=== PATIENT | male | born 1960 | race Caucasian/White ===

== ENCOUNTER 2016-12-17 14:58 | Inpatient (IN) ==
[2016-12-17] MEDS ORDERED: Ipratropium/Albuterol Neb 3 ML IH ONE (15:18)
[2016-12-17 15:37] LABS: Basophils # 0.1 K/mcL (0.0-0.2); Basophils % 0.7 %; Eosinophils # 0.1 K/mcL (0.0-0.6); Eosinophils % 1.1 %; Hematocrit 45.1 % (37.5-50.1); Hemoglobin 14.2 g/dL (12.9-16.9); Immature Granulocytes % 0.2 % (0-4); Lymphocytes # 1.8 K/mcL (0.6-4.6); Lymphocytes % 22.5 %; Mean Corpuscular HGB Conc 31.5 g/dL (31.6-35.5); Mean Corpuscular Hemoglobin 31.6 pg (28.0-33.3); Mean Corpuscular Volume 100.2 fL (83.0-100.0); Mean Platelet Volume 11.3 fL (9.4-12.4); Monocytes # 0.6 K/mcL (0.0-1.3); Monocytes % 7.7 %; Neutrophils # 5.6 K/mcL (1.6-8.9); Platelet Count 152 K/mcL (140-400); Red Cell Distribution Width 13.8 % (11.5-14.5); Segmented Neutrophils % 67.8 %
[2016-12-17 15:49] LABS: BUN/Creatinine Ratio 13 (6-26); Blood Urea Nitrogen 10 mg/dL (8-26); Calcium 9.5 mg/dL (8.6-10.8); Carbon Dioxide 27 mEq/L (19-29); Chloride 101 mEq/L (98-109); Glucose 146 mg/dL (70-99); Osmolality,Calculated 290 (280-300); Sodium 139 mEq/L (136-145); eGFR For African Americans > 60 (> 60); eGFR For Non-African Americans > 60 (> 60)
--- NOTE | 2016-12-17 15:53 | Emergency Department Note ---
Disposition Clinical Impression: Ascites, Syncope, Congestive heart failure (CHF), COPD exacerbation Disposition: Admitted As Inpatient Condition: Good Referrals: Tawanda Chi MD [Primary Care Provider] - Forms: ED Satisfaction Letter Time of Disposition: 17:30 SOB HPI - General Chief Complaint: ED Syncope Stated Complaint: hypotension, ascities Time Seen by Provider: 12/17/16 15:09 Source: patient, family Mode of arrival: ambulatory Limitations: no limitations Nursing Notes Reviewed: Yes Vital Signs Reviewed: Yes - History of Present Illness 56-year-old male with past medical history of COPD and rle-tinqcls-[id number] diabetes presents with 1 month of gradually worsening shortness of breath, low blood pressure, and multiple syncopal events. He states that he has been evaluated by his primary care physician for these and was taken off his blood pressure medicines without improvement in his blood pressure, shortness of breath, or syncope. He is last syncopal episode was 4 days ago and he was seen at [place] emergency department where he had IV fluids and labs performed. He was feeling partially better so he went home. He has also had a CT scan of his head as well as of his chest. The CT scan of his chest was concerning for ascites in the upper abdomen which is why his family doctor sent him in today. He states that before he passes out he feels lightheaded and sometimes he is able to sit down without actually passing out. He denies any productive cough, fever or chills, confusion, chest pain, orthopnea, vomiting, changes in urination or bowel movements. He does admit to mild bilateral pedal edema that has been worsening over the last week. The patient is only supposed to use oxygen at night, but has been using it 24 hours a day for the past few weeks. - Related Data Home Medications Medication Instructions Recorded Confirmed Fluticasone/Vilanterol [Breo 1 each IH DAILY 12/11/16 12/11/16 Ellipta 200-25 Mcg INH] Gabapentin [Neurontin] 600 mg PO TID 12/11/16 12/11/16 Gemfibrozil [Lopid] 600 mg PO BIDWM 12/11/16 12/11/16 GlipiZIDE [Glipizide] 10 mg PO DAILY 12/11/16 12/11/16 Indomethacin 50 mg PO TID 12/11/16 12/11/16 Metformin HCl [Glucophage] 1,000 mg PO BID 12/11/16 12/11/16 Omeprazole [PriLOSEC] 20 mg PO DAILY 12/11/16 12/11/16 Umeclidinium [place] [Incruse 62.5 mcg IH DAILY 12/11/16 12/11/16 Ellipta] Allergies Allergy/AdvReac Type Severity Reaction Status Date / Time No Known Allergies Allergy Verified 12/11/16 21:24 All systems ED: reviewed and negative except as stated. Past Medical History - Past Medical History Medical history: Reports: COPD, hypertension, other Psychiatric history: Reports: no psych history - Social History Smoking Status: Current some day smoker Smokeless Tobacco Status: No Alcohol use: Reports: rarely Drug use: Reports: none Physical Exam - Head Head exam: atraumatic, normocephalic, normal inspection - Eye Eye exam: Present: normal appearance, PERRL, EOMI - ENT ENT exam: normal exam, normal oropharynx, mucous membranes moist - Neck Neck exam: Present: normal inspection, full ROM, trachea midline - Chest Chest inspection: Present: normal inspection, symmetric chest wall rise - Respiratory Patient is in no acute respiratory distress, but does have diffuse moderate wheezing. He has good air movement. Cardiovascular Cardiovascular exam: Present: regular rate, normal rhythm, normal heart sounds - Abdominal Exam Abdomen is distended, but soft. There is diffuse right-sided tenderness that is greatest in the right upper quadrant. - Extremities Exam Mild bilateral pedal edema. There is no calf tenderness or erythema. - Back Exam Back exam: Present: normal inspection, full ROM. Absent: tenderness, CVA tenderness (R), CVA tenderness (L) - Neurological Exam Neurological exam: Present: alert, oriented X3, CN II-XII intact - Psychiatric Psychiatric exam: Present: normal affect, normal mood - Skin Skin exam: Present: warm, dry, intact, normal color - General Limitations: no limitations General appearance: alert Course - Reevaluation(s) Reevaluation #1: CT scan shows pulmonary edema as well as right pleural effusion. Also shows ascites with probable cirrhosis. BNP is elevated to 1100. Patient received Lasix IV here. He also received a DuoNeb. He is feeling partially better, not completely. He is still wheezing. We will give a dose of Solu-Medrol for his COPD. He will need to be admitted for his new ascites workup as well as shortness of breath requiring oxygen 24 hours a day. Accepted by Dr. Cervantes Time: 17:39 Vital Signs Temperature 95.4 F L 12/17/16 15:01 Pulse Rate 112 12/17/16 15:01 Respiratory Rate 18 12/17/16 15:01 Blood Pressure 140/94 12/17/16 15:01 O2 Sat by Pulse Oximetry 88 L 12/17/16 15:01 Temperature 97.4 F L 12/17/16 15:18 Pulse Rate 107 12/17/16 17:00 Respiratory Rate 16 12/17/16 17:00 Blood Pressure 137/99 12/17/16 17:00 O2 Sat by Pulse Oximetry 97 12/17/16 17:00 Oxygen Delivery Oxygen Delivery Room Air Shortness of Breath/Dyspnea - Lab Data Result diagrams: 12/17/16 15:29 12/17/16 15:29 Lab Results 12/17/16 12/17/16 12/17/16 Range/Units 15:29 15:29 15:29 WBC 8.2 (4.3-11.1) K/mcL RBC 4.50 (4.19-5.50) M/mcL Hgb 14.2 (12.9-16.9) g/dL Hct 45.1 (37.5-50.1) % MCV 100.2 H (83.0-100.0) fL MCH 31.6 (28.0-33.3) pg MCHC 31.5 L (31.6-35.5) g/dL RDW 13.8 (11.5-14.5) % Plt Count 152 (140-400) K/mcL MPV 11.3 (9.4-12.4) fL Immature Gran % 0.2 (0-4) % Seg Neutrophils % 67.8 % Lymphocytes % 22.5 % Monocytes % 7.7 % Eosinophils % 1.1 % Basophils % 0.7 % Neutrophils # 5.6 (1.6-8.9) K/mcL Lymphocytes # 1.8 (0.6-4.6) K/mcL Monocytes # 0.6 (0.0-1.3) K/mcL Eosinophils # 0.1 (0.0-0.6) K/mcL Basophils # 0.1 (0.0-0.2) K/mcL Sodium 139 (136-145) mEq/L Potassium 4.0 (3.5-4.5) mEq/L Chloride 101 (98-109) mEq/L Carbon Dioxide 27 (19-29) mEq/L BUN 10 (8-26) mg/dL Creatinine 0.77 (0.72-1.25) mg/dL Est GFR ( Amer) > 60 (> 60) Est GFR (Non-Af Amer) > 60 (> 60) BUN/Creatinine Ratio 13 (6-26) Glucose 146 H (70-99) mg/dL POC Glucose (58-89) Calculated Osmolality 290 (280-300) Lactic Acid (0.5-2.2) mmol/L Calcium 9.5 (8.6-10.8) mg/dL Troponin I 0.03 (0-0.03) ng/mL B-Natriuretic Peptide (0-100) pg/mL 12/17/16 12/17/16 12/17/16 Range/Units 15:29 15:38 15:54 WBC (4.3-11.1) K/mcL RBC (4.19-5.50) M/mcL Hgb (12.9-16.9) g/dL Hct (37.5-50.1) % MCV (83.0-100.0) fL MCH (28.0-33.3) pg MCHC (31.6-35.5) g/dL RDW (11.5-14.5) % Plt Count (140-400) K/mcL MPV (9.4-12.4) fL Immature Gran % (0-4) % Seg Neutrophils % % Lymphocytes % % Monocytes % % Eosinophils % % Basophils % % Neutrophils # (1.6-8.9) K/mcL Lymphocytes # (0.6-4.6) K/mcL Monocytes # (0.0-1.3) K/mcL Eosinophils # (0.0-0.6) K/mcL Basophils # (0.0-0.2) K/mcL Sodium (136-145) mEq/L Potassium (3.5-4.5) mEq/L Chloride (98-109) mEq/L Carbon Dioxide (19-29) mEq/L BUN (8-26) mg/dL Creatinine (0.72-1.25) mg/dL Est GFR ( Amer) (> 60) Est GFR (Non-Af Amer) (> 60) BUN/Creatinine Ratio (6-26) Glucose (70-99) mg/dL POC Glucose 149 H (58-89) Calculated Osmolality (280-300) Lactic Acid 1.0 (0.5-2.2) mmol/L Calcium (8.6-10.8) mg/dL Troponin I (0-0.03) ng/mL B-Natriuretic Peptide 1195 H (0-100) pg/mL - EKG Data EKG attestation: Yes I reviewed and interpreted this EKG. EKG results narrative: Sinus tachycardia at 109 with normal axis and intervals. No ST elevation or depression. No pathologic Q waves. No significant change compared with 2016. Attestation Statement - Attestation Attestation: For this encounter, I have reviewed the resident, IRRIGATION SUPERVISOR, or PA documentation, treatment plan, and medical decision making; and I have had face to face time with this patient. 56-year-old male presents with concerns of hypotension, syncope, distended abdomen. Patient has been evaluated in the emergency department and by his primary care provider for syncopal episodes as well as increasing shortness of breath with exertion. Patient states that this has been worse over the past 2- [address] weeks[address] a [address] chest as an outpatient by his primary care provider for his dyspnea on exertion which showed abdominal ascites. Patient last syncopized 5 days ago while ambulating out to his car. states that she helped him down to the ground and he did not hit his head at that time. We will evaluate with CT of his abdomen for mass. We will obtain labs for CBC, CMP and further evaluation. Patient will be admitted to the hospital for further care and evaluation.
[2016-12-17] MEDS ORDERED: 0.9 % Sodium Chloride 500 ML IV ONE (16:01)
[2016-12-17] MEDS ORDERED: Furosemide 40 MG/4 ML VIAL IVP ONE (17:20)
[2016-12-17 17:39] LABS: Alanine Aminotransferase 12 Units/L (0-55); Albumin 3.7 g/dL (3.5-5.0); Albumin/Globulin Ratio 1.1 (1.1-2.2); Alkaline Phosphatase 85 Units/L (38-126); Aspartate Amino Transferase 21 Units/L (5-34); Bilirubin,Direct 0.4 mg/dL (0.0-0.5); Bilirubin,Indirect 0.5 mg/dL (0.0-1.2); Bilirubin,Total 0.9 mg/dL (0.2-1.2); Globulin 3.5 g/dL (2.4-3.5); Total Protein 7.2 g/dL (6.0-8.3)
[2016-12-17] MEDS ORDERED: methylPREDNISolone 125 MG/2 ML VIAL IVP ONE (17:39)
[2016-12-17 18:00] LABS: INR 1.3; Prothrombin Time 14.6 Seconds (9.4-12.1)
[2016-12-17] MEDS ORDERED: *HR* OxyCODONE Immed Rel 5 MG TABLET PO ONE (19:03)
--- NOTE | 2016-12-17 22:21 | Internal Med History&Physical ---
Date of Encounter: 12/17/16 Time of Encounter: 22:18 Assessment and Plan (1) Interstitial lung disease Current visit: Yes Status: Acute Patient mentioned that he has some sort of interstitial lung disease. He does not recall the diagnosis. He follows with a mailroom supervisor as an outpatient with pulmonary function test and the CT scan of the chest every 6 month period. will get outside records. (2) COPD exacerbation Current visit: Yes Status: Acute Will start the patient on steroids and [id number] breathing treatments. Azithromycin (3) Congestive heart failure (CHF) Current visit: Yes Status: Acute Patient will be started only 640 mg i.e. daily. I would avoid aggressive diuresis because I suspect that his syncope is related to at least moderate pulmonary hypertension which likely have progressed now. This will worsen with diuresis and reducing patients preload Qualifiers: Qualified Code(s): I50.9 - Heart failure, unspecified (4) Syncope Current visit: Yes Status: Acute Due to orthostasis. I suspect that this may be related to pulmonary hypertension. Will asked cardiology service for their input. Continuous telemetry monitoring for arrhythmias. avoid hypotension Qualifiers: Qualified Code(s): R55 - Syncope and collapse (5) Ascites Current visit: Yes Status: Acute This is likely related to right-sided heart failure. There is concern for cirrhosis on imaging. Will check hepatitis markers. Would also check juliet 1 antitrypsin deficiency Qualifiers: Qualified Code(s): R18.8 - Other ascites (6) Diabetes mellitus type 2 in nonobese Current visit: Yes Status: Acute Sliding scale insulin Internal Medicine - H&P: HPI Chief complaint: sob History of present illness: Mr. Ruiz is a 56 year old male with a history of chronic lung disease following with a mailroom supervisor is an outpatient thinks it is some sort of interstitial lung disease, COPD, diabetes mellitus presents to the emergency room today with shortness of breath and syncope which has been going on for the past 2 month. With regards to shortness of breath, patient has progressive shortness of breath currently he is short of breath with conversation, he has bilateral lower extremity swelling, and abdominal swelling. He denies any fevers. He denies any chest pain. The 2nd complaint is recurrence" which has been going on for the past month. "Usually preceded by a prodrome of lightheadedness. Usually occurs when the patient is standing up. He passes out for a short period of time about a minute and is fully conscious on arousal. His has witnessed lots of these episodes and has not noticed any seizure activity or incontinence to urine. She has checked his blood pressure several times during these episodes and usually run low systolic and 80s. His blood pressure medications which included lisinopril 20 mg of hydrochlorothiazide 25 mg or discontinue the month ago because of concern of hypotension causing syncope. However he continues to have these episodes. Patient had an echocardiogram in 2014 which showed dilated and hyperkinetic right ventricle with pulmonary artery systolic pressure of 55. There is no prior known history of liver disease. No blood transfusion. No history of hepatitis. Past Med Surg Social Fam HX - Past Medical History Medical history: COPD, hypertension, other Psychiatric history: no psych history - Past Surgical History Surgical History: appendectomy - Social History Smoking Status: Current some day smoker Packs per day: / Smokeless Tobacco Status: No Alcohol use: rarely Drug use: none Internal Medicine - H&P: Meds Fluticasone/Vilanterol [Breo Ellipta 200-25 Mcg INH] 1 each IH DAILY 12/11/16 [ History] Gabapentin [Neurontin] 600 mg PO TID 12/11/16 [History] Gemfibrozil [Lopid] 600 mg PO BIDWM 12/11/16 [History] GlipiZIDE [Glipizide] 10 mg PO BID 12/11/16 [History] Indomethacin 50 mg PO TID PRN 12/11/16 [History] Metformin HCl [Glucophage] 1,000 mg PO BID 12/11/16 [History] Omeprazole [PriLOSEC] 20 mg PO DAILY 12/11/16 [History] Umeclidinium Mosheim [Incruse Ellipta] 62.5 mcg IH DAILY 12/11/16 [History] Albuterol Neb [Proventil Neb] 2.5 mg IH 3-4XD PRN 12/17/16 [History] Albuterol Sulfate [Albuterol Inhaler] 2 puff IH Q4H PRN 12/17/16 [History] HYDROcodone/Acet 7.5/325 mg [[place] 7.5-325 mg] 1 tab PO Q6H PRN 12/17/16 [ History] Montelukast [Singulair] 10 mg PO DAILY 12/17/16 [History] Allergies No Known Allergies Allergy (Verified 12/11/16 21:24) All Systems PM: A 10-system review of systems was performed and is negative for pertinent findings except as documented above in the HPI. Review of systems: 10 point ROS is negative except for HPI. - Constitutional Vitals: Temp Pulse Resp BP Pulse Ox 97.6 F 109 19 109/87 94 L 12/17/16 20:08 12/17/16 20:08 12/17/16 20:08 12/17/16 20:08 12/17/16 20:08 Exam: Gen.: patient is alert oriented times 3 not in distress. Alejandra: normal S1 S2 normal additional sounds or murmurs chest: bilateral basil crackles expiratory wheezing neck:positive hepatojugular reflux lower extremity: 1+ lower extremity swelling Internal Med - H&P Results - Labs CBC & Chem 7: 12/17/16 15:29 12/17/16 15:29
[2016-12-18] MEDS: Azithromycin 500 MG in D5% in Water 250 ML IVPB SCH (00:12)
[2016-12-18] MEDS: methylPREDNISolone 125 MG/2 ML VIAL IVP SCH ×4 (00:13→17:16)
[2016-12-18] MEDS: Levalbuterol Neb 1.25 MG/3 ML IH SCH ×7 (00:24→23:14)
[2016-12-18] MEDS: *HR* HYDROcodone/Acet 7.5/325 mg TABLET PO PRN ×3 (02:02→17:26)
[2016-12-18 06:34] LABS: Basophils % 0.2 %; Hematocrit 39.7 % (37.5-50.1); Immature Granulocytes % 0.6 % (0-4); Lymphocytes # 0.5 K/mcL (0.6-4.6); Lymphocytes % 9.1 %; Mean Corpuscular HGB Conc 32.7 g/dL (31.6-35.5); Mean Corpuscular Hemoglobin 31.9 pg (28.0-33.3); Mean Corpuscular Volume 97.3 fL (83.0-100.0); Mean Platelet Volume 11.5 fL (9.4-12.4); Monocytes % 0.8 %; Neutrophils # 4.6 K/mcL (1.6-8.9); Platelet Count 126 K/mcL (140-400); Red Blood Count 4.08 M/mcL (4.19-5.50); Red Cell Distribution Width 13.5 % (11.5-14.5); Segmented Neutrophils % 89.3 %
[2016-12-18 06:43] LABS: BUN/Creatinine Ratio 14 (6-26); Blood Urea Nitrogen 12 mg/dL (8-26); Calcium 8.8 mg/dL (8.6-10.8); Carbon Dioxide 29 mEq/L (19-29); Chloride 95 mEq/L (98-109); Creatine Kinase 53 Units/L (30-200); Glucose 296 mg/dL (70-99); Magnesium 0.9 mg/dL (1.6-2.6); Osmolality,Calculated 295 (280-300); Potassium 3.8 mEq/L (3.5-4.5); Sodium 137 mEq/L (136-145); eGFR For African Americans > 60 (> 60); eGFR For Non-African Americans > 60 (> 60)
--- NOTE | 2016-12-18 07:35 | Internal Med Progress Note ---
Date of Encounter: 12/18/16 Time of Encounter: 07:33 - Assessment and plan (1) Interstitial lung disease Current Visit: Yes Status: Acute Assessment and plan: Has advanced Lung disease. PFTs in past severe obstructive Lung disease. has pulmonlogist at [facility]. ( Dr Macias) prefer to follow up with same. (2) Syncope Current Visit: Yes Status: Acute Assessment and plan: Had episode of syncope and that is reason for his hospitalization. denies Syncope since admission. on telemetry and no abnormal rhythm recorded. Qualifiers: Syncope type: unspecified Qualified Code(s): R55 - Syncope and collapse (3) COPD exacerbation Current Visit: Yes Status: Acute Assessment and plan: will continue - Abx ( Azithromycin) - Steroids ( Solumedrol) - BDAs ( Zoponex) possible pulmonary consult if persistently worsened (4) Diabetes mellitus type 2 in nonobese Current Visit: Yes Status: Acute Assessment and plan: ACHS Low dose sliding scale medical Decision making : mild to moderate risk of worsening in spite on appropriate treatment. - Subjective Interval history: seen and examined. comfortably lying in bed. has occasional SOB. no chest pain. patient claims that he is feeling much better as compare to yesterday. - Constitutional Vitals: Temp Pulse Resp BP Pulse Ox 97.7 F 98 15 135/100 94 L 12/18/16 06:46 12/18/16 06:46 12/18/16 06:46 12/18/16 06:46 12/18/16 06:46 General appearance: Present: A&O X 3, pleasant, no acute distress, answers questions appropriately - Head Head exam: Present: atraumatic, normocephalic - Eye Eye exam: Present: PERRL, conjuntiva pink, sclera anicteric Pupils: Present: PERRL - Neck Neck exam general surgery: Present: supple, trachea midline. Absent: lymphadenopathy - Respiratory Respiratory exam: Present: CTAB, wheezes. Absent: accessory muscle use, rales, rhonchi Additional comments: bilateral wheeze present. polyphonic in nature. - Cardiovascular Cardiovascular exam: Present: RRR, +S1, +S2. Absent: diastolic murmur, gallop, rubs, systolic murmur - GI/Abdominal GI/Abdominal exam: Present: normal bowel sounds, soft, no peritoneal signs. Absent: distended, tenderness - Extremities Exam Extremities exam: Present: warm, radial pulses palpable and symetrical. Absent : calf tenderness, cyanotic, pedal edema - Neurological Exam Neurological exam: Present: CN II-XII intact, oriented X3, no focal deficits. Absent: pronater drift, facial droop, speech deficit - Skin Skin exam: Present: dry, intact Internal Medicine: Result - Labs CBC & Chem 7: 12/18/16 05:50 12/18/16 05:50 Labs: Short CBC 12/18/16 Range/Units 05:50 WBC 5.2 (4.3-11.1) K/mcL Hgb 13.0 (12.9-16.9) g/dL Hct 39.7 (37.5-50.1) % Plt Count 126 L (140-400) K/mcL Neutrophils # 4.6 (1.6-8.9) K/mcL BMP 12/18/16 05:50 Sodium 137 Potassium 3.8 Chloride 95 L Carbon Dioxide 29 BUN 12 Creatinine 0.86 Glucose 296 H Calcium 8.8 Cardiac Enzymes 12/17/16 12/18/16 Range/Units 22:22 05:50 Troponin I 0.04 H* 0.02 (0-0.03) ng/mL - ABG Interpretation ABG results: PT/INR, D-dimer PT 14.6 Seconds (9.4-12.1) H 12/17/16 15:29 Consult Discharge Plan - Plan Referrals: Tawanda Chi MD [Primary Care Provider] -
[2016-12-18] MEDS ORDERED: Magnesium Sulfate 2 GM in D5% in Water 100 ML IVPB ONE (07:54)
[2016-12-18] MEDS ORDERED: Furosemide 40 MG/4 ML VIAL IVP SCH (08:00)
[2016-12-18] MEDS: Insulin LISPRO 300 UNITS/3 ML VIAL SQ SCH ×4 (08:21→21:19)
[2016-12-18] MEDS: Furosemide 40 MG/4 ML VIAL IVP SCH (08:22)
[2016-12-19] MEDS: methylPREDNISolone 125 MG/2 ML VIAL IVP SCH ×4 (00:07→17:51)
[2016-12-19] MEDS: *HR* HYDROcodone/Acet 7.5/325 mg TABLET PO PRN ×4 (00:08→21:04)
[2016-12-19] MEDS: Azithromycin 500 MG in D5% in Water 250 ML IVPB SCH (00:08)
[2016-12-19] MEDS: Gabapentin 300 MG CAPSULE PO SCH ×3 (02:04→14:43)
[2016-12-19] MEDS: Levalbuterol Neb 1.25 MG/3 ML IH SCH ×4 (04:39→16:07)
[2016-12-19] MEDS ORDERED: Perflutren Lipid Microsphere 1.3 ML in 0.9 % Sodium Chloride 8.7 ML IVP ONE (07:45)
[2016-12-19] MEDS: Furosemide 40 MG/4 ML VIAL IVP SCH (07:57)
[2016-12-19] MEDS: Insulin LISPRO 300 UNITS/3 ML VIAL SQ SCH ×4 (07:57→21:04)
[2016-12-19] MEDS ORDERED: Perflutren Lipid Microsphere 2 ML VIAL ONE (08:00)
--- NOTE | 2016-12-19 08:43 | Internal Med Progress Note ---
Date of Encounter: 12/19/16 Time of Encounter: 08:40 - Assessment and plan (1) Interstitial lung disease Current Visit: Yes Status: Acute Assessment and plan: Has advanced Lung disease. PFTs in past severe obstructive Lung disease. has pulmonlogist at [facility]. ( Dr Macias) prefer to follow up with same. 12/19/2016. Patient feels little better as compared to yesterday. Patient still has a wheeze which is polyphonic in nature. Patient agree to see transcribing operators supervisor here in this hospital. Patient feels that it is difficult for him now to go all the way to [place] to see his transcribing operators supervisor. We will get an transcribing operators supervisor consult tomorrow. (2) Syncope Current Visit: Yes Status: Acute Assessment and plan: Had episode of syncope and that is reason for his hospitalization. denies Syncope since admission. on telemetry and no abnormal rhythm recorded. 12/19/2016. No syncopal episode in past 24 hours. Possibility of a vasovagal syncope is very high Qualifiers: Syncope type: unspecified Qualified Code(s): R55 - Syncope and collapse (3) COPD exacerbation Current Visit: Yes Status: Acute Assessment and plan: will continue - Abx ( Azithromycin) - Steroids ( Solumedrol) - BDAs ( Zoponex) possible pulmonary consult if persistently worsened 12/19/2016. This is more of worsening interstitial fibrosis. Patient needs further evaluation by pulmonary. (4) Diabetes mellitus type 2 in nonobese Current Visit: Yes Status: Acute Assessment and plan: ACHS Low dose sliding scale medical Decision making : mild to moderate risk of worsening in spite on appropriate treatment. - Subjective Interval history: seen and examined. comfortably lying in bed. has occasional SOB. no chest pain. patient claims that he is feeling much better as compare to yesterday. 12/19/2016 Seen and examined. Chart reviewed. At the time of my examination patient was undergoing echocardiogram. Patient feels little better as compared to yesterday. - Constitutional Vitals: Temp Pulse Resp BP Pulse Ox 97.6 F 110 15 139/99 95 12/19/16 06:46 12/19/16 06:46 12/19/16 06:46 12/19/16 06:46 12/19/16 08:06 General appearance: Present: A&O X 3, pleasant, no acute distress, answers questions appropriately - Head Head exam: Present: atraumatic, normocephalic - Eye Eye exam: Present: PERRL, conjuntiva pink, sclera anicteric Pupils: Present: PERRL - Neck Neck exam general surgery: Present: supple, trachea midline. Absent: lymphadenopathy - Respiratory Respiratory exam: Present: CTAB. Absent: accessory muscle use, rales, rhonchi, wheezes - Cardiovascular Cardiovascular exam: Present: RRR, +S1, +S2. Absent: diastolic murmur, gallop, rubs, systolic murmur - GI/Abdominal GI/Abdominal exam: Present: normal bowel sounds, soft, no peritoneal signs. Absent: distended, tenderness - Extremities Exam Extremities exam: Present: warm, radial pulses palpable and symetrical. Absent : calf tenderness, cyanotic, pedal edema - Neurological Exam Neurological exam: Present: CN II-XII intact, oriented X3, no focal deficits. Absent: pronater drift, facial droop, speech deficit - Skin Skin exam: Present: dry, intact Internal Medicine: Result - Labs CBC & Chem 7: 12/18/16 05:50 12/18/16 05:50 - ABG Interpretation ABG results: PT/INR, D-dimer PT 14.6 Seconds (9.4-12.1) H 12/17/16 15:29 Consult Discharge Plan - Plan Referrals: Tawanda Chi MD [Primary Care Provider] -
--- NOTE | 2016-12-19 12:25 | ECHO - Doppler Report ---
Echo with Saline and Imaging Enhancement Agent Name: Hai Ruiz Date of Study: 12/19/2016 Date: 1960 Ht: 66.0 in Medical Record#: [id number] Age: 56 Wt: 174.0 lb Gender: Male BSA: 1.89 Order #: [id number] Location: [facility] Room #: [id number] Reading Physician: Tosha Odom DO Certified Lactation Educator: Edwige Saxena RDCS Ordering Physician: Zach Saini MD Primary Physician: Tawanda Chi MD Indications: Evaluate left ventricular function, Evaluate right side function Impressions: Technically challenging study with suboptimal windows. Even with use of Definity, LV wall motion was not well evaluated. Overall, LV systolic function appears reduced, EF 40%. There is abnormal septal motion. Moderately dilated RV with moderate reduction in function. LV septal flattening consistent with RV pressure overload. Mild tricuspid regurgitation. Mild pulmonic regurgitation. Moderate pulmonary hypertension. Left Ventricular Wall Motion: Rest Echo Findings The apex, apical inferior, mid inferior, basal inferior, apical anterior, mid anterior, basal anterior, apical lateral, mid anterior lateral, basal anterior lateral, mid inferior lateral and basal inferior lateral john were hypokinetic. The apical septal, mid inferior septal, basal inferior septal, mid anterior septal and basal anterior septal john were dyskinetic. Findings: Study Quality * Technically sub-optimal due to COPD. ECG Findings * Sinus tachycardia. Left Atrium * Normal left atrial size. Mitral Valve * Normal mitral valve structure. * No mitral stenosis. * Trace mitral regurgitation. Aortic Valve * No aortic regurgitation. * Aortic valve not well visualized. * No aortic stenosis. Tricuspid Valve * Normal tricuspid valve structure. * Mild tricuspid regurgitation. * Estimated RA pressure is 8 mmHg. * Estimated RVSP is 57 mmHg. * Moderate pulmonary hypertension. Pulmonic Valve * Pulmonic valve is not well visualized. * No pulmonic stenosis. * Mild pulmonic regurgitation. Pulmonary Artery * Pulmonary artery not well visualized. Left Ventricle * Mild left ventricular diastolic dysfunction. * Definity echo contrast was used. * LVEF 40%. Right Ventricle * Moderately dilated RV with moderate reduction in function. Right Atrium * Moderately dilated right atrium. Interatrial Septum * Suboptimal saline study to detect PFO. * Interatrial septum not well evaluated. IVC * The IVC is not dilated. * < 50% respiratory change. Pericardium * There is no pericardial effusion present. Aorta * Normally sized aortic root. History Hypertension Diabetes History of Smoking Years 30 Packs 0.5 Family History of CAD 08-14-15 a Previous Echo was performed. Contrast: Agitated saline 20 ml. Definity 1.3 ml in 8.7 ml of saline 2 ml. Measurements: BP: 139/ 99 2D Normal Values IVSd: 1.00 cm 0.6 - 1.0 cm LVIDd: 5.30 cm 3.7 - 5.6 cm LVPWd: 1.10 cm 0.6 - 1.1 cm LVIDs: 4.20 cm 1.5 - 3.6 cm AO: 3.00 cm < 4.0 cm LA: 3.70 cm 2.0 - 4.0cm %FS: 20.80 cm >25 % LVOT Diam: 2.10 cm LA volume: 58 Mitral Valve Peak E:.61 m/sec Peak A:.87 m/sec E/A Ratio:0.7 Peak E' Lat Bashir:6.24 cm/s Peak E' Med Bashir:6.73 cm/s E/E' Lat Ratio:9.8 E/E' Med Ratio:9.1 Tricuspid Valve TV Regurg Peak Grad: 49.00mmHg TV Regurg Peak Bashir: 3.51m/sec Updated by Tosha Odom on 12/19/2016 12:18:45 PM electronically signed on 12/19/2016 12:21:10 PM with status of Final Wall Motion Salazar: 1=Normal, 2=Hypokinesis, 3=Akinesis, 4=Dyskinesis, 5=Aneurysmal, 6=Hyperkinetic, X=Not Visualized (Blank)=Missing
--- NOTE | 2016-12-19 13:22 | Electrocardiograph Report ---
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
[2016-12-20] MEDS: Gabapentin 300 MG CAPSULE PO SCH ×4 (00:20→20:53)
[2016-12-20] MEDS: Azithromycin 500 MG in D5% in Water 250 ML IVPB SCH ×2 (00:27→23:56)
[2016-12-20] MEDS: methylPREDNISolone 125 MG/2 ML VIAL IVP SCH ×5 (00:28→23:55)
[2016-12-20 06:20] LABS: Hematocrit 40.7 % (37.5-50.1); Hemoglobin 12.9 g/dL (12.9-16.9); Immature Granulocytes % 0.8 % (0-4); Lymphocytes # 0.4 K/mcL (0.6-4.6); Lymphocytes % 3.7 %; Mean Corpuscular HGB Conc 31.7 g/dL (31.6-35.5); Mean Corpuscular Hemoglobin 31.2 pg (28.0-33.3); Mean Corpuscular Volume 98.3 fL (83.0-100.0); Mean Platelet Volume 11.9 fL (9.4-12.4); Monocytes # 0.2 K/mcL (0.0-1.3); Monocytes % 2.1 %; Platelet Count 120 K/mcL (140-400); Red Blood Count 4.14 M/mcL (4.19-5.50); Segmented Neutrophils % 93.4 %
[2016-12-20 06:22] LABS: Neutrophils # 10.7 K/mcL (1.6-8.9)
[2016-12-20 06:40] LABS: Alanine Aminotransferase 14 Units/L (0-55); Albumin 3.4 g/dL (3.5-5.0); Albumin/Globulin Ratio 1.1 (1.1-2.2); Alkaline Phosphatase 59 Units/L (38-126); Aspartate Amino Transferase 20 Units/L (5-34); BUN/Creatinine Ratio 28 (6-26); Bilirubin,Total 0.7 mg/dL (0.2-1.2); Calcium 8.3 mg/dL (8.6-10.8); Carbon Dioxide 33 mEq/L (19-29); Chloride 90 mEq/L (98-109); Globulin 3.2 g/dL (2.4-3.5); Glucose 426 mg/dL (70-99); Osmolality,Calculated 304 (280-300); Potassium 3.6 mEq/L (3.5-4.5); Sodium 135 mEq/L (136-145); Total Protein 6.6 g/dL (6.0-8.3); eGFR For African Americans > 60 (> 60); eGFR For Non-African Americans > 60 (> 60)
[2016-12-20 06:41] LABS: Blood Urea Nitrogen 30 mg/dL (8-26)
[2016-12-20] MEDS: *HR* HYDROcodone/Acet 7.5/325 mg TABLET PO PRN ×3 (06:44→23:55)
[2016-12-20] MEDS ORDERED: Insulin LISPRO 300 UNITS/3 ML VIAL SQ SCH (08:09)
[2016-12-20] MEDS ORDERED: *HR* Dextrose 50 % in Water (Syg) 50 ML SYRINGE IVP PRN (08:19)
[2016-12-20] MEDS ORDERED: Dextrose Gel 15 GM PO PRN ×2 (08:19)
[2016-12-20] MEDS ORDERED: D5% in Water 1,000 ML IV PRN (08:19)
[2016-12-20] MEDS: Furosemide 40 MG/4 ML VIAL IVP SCH (08:46)
[2016-12-20] MEDS: Insulin LISPRO 300 UNITS/3 ML VIAL SQ SCH ×3 (08:55→16:45)
[2016-12-20 12:56] LABS: Hepatitis A Antibody IgM Nonreactive (Nonreactive); Hepatitis B Core IgM Nonreactive (Nonreactive); Hepatitis B Surface Antigen Nonreactive (Nonreactive); Hepatitis C Virus Antibody Nonreactive (Nonreactive)
--- NOTE | 2016-12-20 17:27 | Internal Med Progress Note ---
<Jovani Alvarez - Last Filed: 12/20/16 17:57> Date of Encounter: 12/20/16 Time of Encounter: 09:45 - Assessment and plan (1) COPD exacerbation Current Visit: Yes Status: Acute Assessment and plan: improving clinically. continue Azithromycin, Steroids ( begin to taper) and bronchodialators. Patient is also quite young. His younger brother has COPD as well. CT scan suggest cirrhosis. Should also be worked up for alpha one antitrypsin deficiency. (2) Interstitial lung disease Current Visit: Yes Status: Acute Assessment and plan: per patient report. He is unsure of previous treatment for ILD He was followed by pulmononologist in [place]. Will consult pulmonology as he wishes to have a specialist in the area. (3) Hypoxemia Current Visit: Yes Status: Acute Assessment and plan: multifactorial. AECOPD, possible ILD, CHF. O2 as needed continue to treat underlying conditions. (4) Diabetes mellitus type 2 in nonobese Current Visit: Yes Status: Acute Assessment and plan: above goal increased sliding scale to medium scale. wean steroids. (5) Leukocytosis Current Visit: Yes Status: Acute Assessment and plan: mild Likely secondary to steroids. Continue to trend. Qualifiers: Qualified Code(s): D72.829 - Elevated white blood cell count, unspecified (6) Syncope Current Visit: Yes Status: Acute Assessment and plan: etiology unclear. Possibly Vasovagal we will also ask cardiology for their input as well. Qualifiers: Syncope type: unspecified Qualified Code(s): R55 - Syncope and collapse (7) Congestive heart failure Current Visit: Yes Status: Acute Assessment and plan: New onset Systolic will add low dose beta humberto and ACEi as patient tolerates. continue diuresis. Strict I's and Os. Etiology unclear. Ischemic cardiomyopathy? Will consult cardiology for further recommendations on work up and managment. Qualifiers: Qualified Code(s): I50.9 - Heart failure, unspecified (8) Diabetes Current Visit: Yes Status: Acute Assessment and plan: above goal increase sliding scale to medium scale. will also wean steroids. Qualifiers: Qualified Code(s): E11.9 - Type 2 diabetes mellitus without complications (9) DVT prophylaxis Current Visit: Yes Status: Acute Assessment and plan: SQ heparin - Subjective Interval history: Today patient states that he is feeling better. he states that he has a history of COPD and ILD. 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 However he states he dose not know the cause of the ILD. Today he states that he is feeling better. He states that his swelling has decreased. He states his breathing has improved as well. He denies productive cough, or hemoptysis. He has no further complaints or concerns at this time. - Constitutional Vitals: Temp Pulse Resp BP Pulse Ox 97.6 F 98 15 141/98 96 12/20/16 16:00 12/20/16 16:00 12/20/16 16:00 12/20/16 16:00 12/20/16 16:00 General appearance: Present: A&O X 3, pleasant, no acute distress, answers questions appropriately - Head Head exam: Present: atraumatic, normal inspection, normocephalic - Eye Eye exam: Present: PERRL, conjuntiva pink, sclera anicteric Pupils: Present: PERRL - ENT ENT exam: Present: mucous membranes moist - Neck Neck exam general surgery: Present: supple, trachea midline. Absent: lymphadenopathy - Respiratory Respiratory exam: Present: rhonchi, wheezes. Absent: accessory muscle use, rales - Cardiovascular Cardiovascular exam: Present: RRR, +S1, +S2. Absent: diastolic murmur, gallop, rubs, systolic murmur - GI/Abdominal GI/Abdominal exam: Present: normal bowel sounds, soft, no peritoneal signs. Absent: distended, tenderness - Extremities Exam Extremities exam: Present: warm, radial pulses palpable and symetrical. Absent : calf tenderness, cyanotic, pedal edema - Skin Skin exam: Present: dry, intact Internal Medicine: Result - Labs CBC & Chem 7: 12/20/16 05:39 12/20/16 05:39 Labs: Short CBC 12/20/16 Range/Units 05:39 WBC 11.5 H D (4.3-11.1) K/mcL Hgb 12.9 (12.9-16.9) g/dL Hct 40.7 (37.5-50.1) % Plt Count 120 L (140-400) K/mcL Neutrophils # 10.7 H (1.6-8.9) K/mcL BMP 12/20/16 05:39 Sodium 135 L Potassium 3.6 Chloride 90 L Carbon Dioxide 33 H BUN 30 H D Creatinine 1.07 Glucose 426 H Calcium 8.3 L Liver Function 12/20/16 Range/Units 05:39 Total Bilirubin 0.7 (0.2-1.2) mg/dL AST 20 (5-34) Units/L ALT 14 (0-55) Units/L Alkaline Phosphatase 59 (38-126) Units/L Albumin 3.4 L (3.5-5.0) g/dL - ABG Interpretation ABG results: PT/INR, D-dimer PT 14.6 Seconds (9.4-12.1) H 12/17/16 15:29 - VTE Documentation of Mechanical Device: Intermittent pneumatic compression device Consult Discharge Plan - Plan Referrals: Tawanda Chi MD [Primary Care Provider] - 12/24/16 9:30 am <Zach Saini - Last Filed: 12/20/16 18:14> Date of Encounter: 12/20/16 - Assessment and plan (1) Interstitial lung disease Current Visit: Yes Status: Acute (2) Syncope Current Visit: Yes Status: Acute Qualifiers: Syncope type: unspecified Qualified Code(s): R55 - Syncope and collapse (3) COPD exacerbation Current Visit: Yes Status: Acute (4) Diabetes mellitus type 2 in nonobese Current Visit: Yes Status: Acute - Constitutional Vitals: Temp Pulse Resp BP Pulse Ox 97.6 F 98 15 141/98 96 12/20/16 16:00 12/20/16 16:00 12/20/16 16:00 12/20/16 16:00 12/20/16 16:00 Internal Medicine: Result - Labs CBC & Chem 7: 12/20/16 05:39 12/20/16 05:39 Labs: Short CBC 12/20/16 Range/Units 05:39 WBC 11.5 H D (4.3-11.1) K/mcL Hgb 12.9 (12.9-16.9) g/dL Hct 40.7 (37.5-50.1) % Plt Count 120 L (140-400) K/mcL Neutrophils # 10.7 H (1.6-8.9) K/mcL BMP 12/20/16 05:39 Sodium 135 L Potassium 3.6 Chloride 90 L Carbon Dioxide 33 H BUN 30 H D Creatinine 1.07 Glucose 426 H Calcium 8.3 L Liver Function 12/20/16 Range/Units 05:39 Total Bilirubin 0.7 (0.2-1.2) mg/dL AST 20 (5-34) Units/L ALT 14 (0-55) Units/L Alkaline Phosphatase 59 (38-126) Units/L Albumin 3.4 L (3.5-5.0) g/dL - ABG Interpretation ABG results: PT/INR, D-dimer PT 14.6 Seconds (9.4-12.1) H 12/17/16 15:29 - Attending Attestation I examined this patient and my medical decision-making was reviewed with the [employer] SALESPERSON/PA/Advanced Practice Nurse/Resident Physician. I agree with the documented findings, disposition and treatment plan as described except to the extent set forth below.
--- NOTE | 2016-12-20 17:29 | Pulmonology Consult Note ---
Date of Encounter: 12/20/16 Time of Encounter: 16:20 Assessment and Plan (1) COPD exacerbation Current Visit: Yes Status: Acute I have asked patient to get records for us and will manage him as outpatient. I agree with current treatment and added Symbicort to his current treatment. Consider changing IV steroid to oral as transition to discharge home with taper dose steroid. (2) Interstitial lung disease Current Visit: Yes Status: Chronic Reviewing his CT chest shows evidence of chronic interstitial lung disease, however pattern is not typical for IPF pattern. This can be found in patient with copd and other condition. Will need his records to see how much work up he had done in [place] to prevent repeating any unnecessary testing. (3) Tobacco abuse Current Visit: Yes Status: Chronic Advising patient to quit smoking tobacco completely. (4) Tobacco abuse counseling Current Visit: Yes Status: Chronic History of Present Illness Consult date: 12/20/16 Requesting physician: Zach Saini Reason for consult: COPD, other (ILD) Chief complaint: Dyspnea History of present illness: This is a pleasant 56-year-old male with chronic respiratory failure on oxygen at home at 2 LPM and he has been admitted for worsening of his dyspnea and COPD exacerbation. Patient has underlying interstitial lung disease according to him , but he is not sure what type of treatment he was getting over that. Patient on inhalers at home for his COPD. Patient sees a furniture maker in [place] and he would like to be established with [facility]. He has worsening of his shortness of breath, and productive cough with wheezing, but he denies any hemoptysis. Patient noticed his dyspnea is worse with exertion. Patient has noticed lower extremities swelling and abdominal swelling. He has no fever and denies any chest pain. Patient continue to smoke tobacco some days. Past Med Surg Social Fam HX - Past Medical History Medical history: COPD, hypertension, other Psychiatric history: no psych history - Past Surgical History Surgical History: appendectomy - Social History Smoking Status: Current some day smoker Packs per day: / Smokeless Tobacco Status: No Alcohol use: rarely Drug use: none Medications and Allergies Fluticasone/Vilanterol [Breo Ellipta 200-25 Mcg INH] 1 each IH DAILY 12/11/16 [ History] Gabapentin [Neurontin] 600 mg PO TID 12/11/16 [History] Gemfibrozil [Lopid] 600 mg PO BIDWM 12/11/16 [History] GlipiZIDE [Glipizide] 10 mg PO BID 12/11/16 [History] Indomethacin 50 mg PO TID PRN 12/11/16 [History] Metformin HCl [Glucophage] 1,000 mg PO BID 12/11/16 [History] Omeprazole [PriLOSEC] 20 mg PO DAILY 12/11/16 [History] Umeclidinium [place] [Incruse Ellipta] 62.5 mcg IH DAILY 12/11/16 [History] Albuterol Neb [Proventil Neb] 2.5 mg IH 3-4XD PRN 12/17/16 [History] Albuterol Sulfate [Albuterol Inhaler] 2 puff IH Q4H PRN 12/17/16 [History] HYDROcodone/Acet 7.5/325 mg [[place] 7.5-325 mg] 1 tab PO Q6H PRN 12/17/16 [ History] Montelukast [Singulair] 10 mg PO DAILY 12/17/16 [History] Allergies No Known Allergies Allergy (Verified 12/11/16 21:24) All Systems: A 10-system review of systems was performed and is negative for pertinent findings except as documented above in the HPI. Physical Examination Vital Signs: Vital Signs, Last 4 Hours Temp Pulse Resp BP Pulse Ox 12/20/16 16:00 97.6 F 98 15 141/98 96 12/20/16 14:34 94 L General appearance: appears uncomfortable Eyes: nonicteric ENT: oropharynx dry Mallampati (class): 2 Neck: supple Effort: mildly labored Auscultation: bilateral: diminished breath sounds, rhonchi Percussion: bilateral: not dull Cardiovascular: regular rate and rhythm Gastrointestinal: normoactive bowel sounds Extremities: edema normal mental status, non-focal exam anxious Results - Laboratory Findings CBC and BMP: 12/20/16 05:39 12/20/16 05:39 PT/INR, D-dimer PT 14.6 Seconds (9.4-12.1) H 12/17/16 15:29 Abnormal lab findings: Abnormal lab results WBC 11.5 K/mcL (4.3-11.1) H D 12/20/16 05:39 RBC 4.14 M/mcL (4.19-5.50) L 12/20/16 05:39 Plt Count 120 K/mcL (140-400) L 12/20/16 05:39 Neutrophils # 10.7 K/mcL (1.6-8.9) H 12/20/16 05:39 Lymphocytes # 0.4 K/mcL (0.6-4.6) L 12/20/16 05:39 PT 14.6 Seconds (9.4-12.1) H 12/17/16 15:29 Sodium 135 mEq/L (136-145) L 12/20/16 05:39 Chloride 90 mEq/L (98-109) L 12/20/16 05:39 Carbon Dioxide 33 mEq/L (19-29) H 12/20/16 05:39 BUN 30 mg/dL (8-26) H D 12/20/16 05:39 BUN/Creatinine Ratio 28 (6-26) H 12/20/16 05:39 Glucose 426 mg/dL (70-99) H 12/20/16 05:39 POC Glucose 347 (58-89) H 12/20/16 07:18 Calculated Osmolality 304 (280-300) H 12/20/16 05:39 Calcium 8.3 mg/dL (8.6-10.8) L 12/20/16 05:39 Magnesium 0.9 mg/dL (1.6-2.6) L 12/18/16 05:50 B-Natriuretic Peptide 1195 pg/mL (0-100) H 12/17/16 15:29 Albumin 3.4 g/dL (3.5-5.0) L 12/20/16 05:39 - Diagnostic Findings Chest x-ray: report reviewed, image reviewed CT scan - chest: report reviewed, image reviewed - Clinical Findings Intake & Output: Intake & Output 12/20/16 12/20/16 12/20/16 07:59 15:59 23:59 Intake Total 300 / 300 540 / 540 0 / 0 Output Total 750 / 750 1500 / 1500 300 / 300 Balance -450 / -450 -960 / -960 -300 / -300 Weight 80.6 kg Consult Discharge Plan - Plan Referrals: Tawanda Chi MD [Primary Care Provider] - 12/24/16 9:30 am
[2016-12-20 20:28] LABS: CK-MB (CK isoenzymes) 0 % (0-4); CK-MM (CK-isoenzymes) 100 % (96-100)
[2016-12-20 20:28] LABS: CK-MB (CK isoenzymes) 0 % (0-4); CK-MM (CK-isoenzymes) 100 % (96-100)
[2016-12-20] MEDS: Budesonide/Formoterol 160/4.5 MDI IH SCH (23:20)
[2016-12-21] MEDS: methylPREDNISolone 125 MG/2 ML VIAL IVP SCH ×3 (08:14→23:48)
[2016-12-21] MEDS: Gabapentin 300 MG CAPSULE PO SCH ×3 (08:14→20:48)
[2016-12-21] MEDS: Furosemide 40 MG/4 ML VIAL IVP SCH (08:14)
[2016-12-21] MEDS: Insulin LISPRO 300 UNITS/3 ML VIAL SQ SCH ×4 (08:15→20:54)
[2016-12-21] MEDS: *HR* HYDROcodone/Acet 7.5/325 mg TABLET PO PRN ×3 (08:38→23:52)
[2016-12-21 10:00] LABS: CK Total (Ck Isoenzymes) 64 U/L (20-200); CK-BB (CK isoenzymes) 0 % (0-0)
[2016-12-21 10:02] LABS: CK Total (Ck Isoenzymes) 54 U/L (20-200); CK-BB (CK isoenzymes) 0 % (0-0)
[2016-12-21] MEDS: Budesonide/Formoterol 160/4.5 MDI IH SCH ×2 (10:41→21:37)
--- NOTE | 2016-12-21 12:58 | Cardiology Consult Note ---
Date of Encounter: 12/21/16 Time of Encounter: 13:00 Assessment and Plan (1) Acute systolic CHF (congestive heart failure) Current Visit: Yes Status: Acute Acute systolic and right sided heart failure. TTE EF 40% moderately reduced systolic function, moderately dilated right ventricle with reduction in function. There is right ventricular septal flattening consistent with pressure overload. Mild pulmonic regurgitation, mild tricuspid regurgitation, and moderate pulmonary hypertension. BNP 1145. Fluid overload seen on exam. CT scan showed pulmonary edema. Continue IV diuretic. Increase to 40 mg BID. Monitor BMP. Strict I&O and daily weights. -1650 ml last 24 hours. Low-sodium diet. 1500 ml fluid restriction. CHF education reviewed with patient. Continue carvedilol and lisinopril. LHC recommended to assess coronary anatomy to r/o ischemic cardiomyoapthy. Pulmonology requesting RHC. I discussed LHC indication, risks, benefits, and alternatives and he agrees to proceed. Plan for LHC once pt is breathing better. Likely proceed tomorrow. (2) COPD exacerbation Current Visit: Yes Status: Acute Pulmonology following. (3) Diabetes Current Visit: Yes Status: Chronic Management per IM. 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 All questions were answered. Thank you for involving us in the care of your patient. Please call with any questions. History of Present Illness Consult date: 12/21/16 Requesting physician: Mundo Gonzalez Consult reason: Acute systolic CHF Chief complaint: SOB, weight gain, orthopnea, syncopal event. History of present illness: Mr. Ruiz is a 56 year old male with a history of COPD, interstitial lung disease on home O2, tobacco use, hypertension, hyperlipidemia, and type II diabetes, and previous heavy ETOH use. He presents with the c/o increasing SOB, 8 lb weight gain, BLE edema and abdominal distention for the past two months. He also c/o lightheadedness and syncopal events that usually occur with position change. He reports he had multiple syncopal episodes. Denies chest pain or palpitations. Denies history of CAD or previous LHC. Cardiology consulted for abnormal echocardiogram. EF found to be newly reduced at 40%. Past Med Surg Social Fam HX - Past Medical History Medical history: COPD, diabetes, hyperlipidemia, hypertension, other Psychiatric history: no psych history - Past Surgical History Surgical History: appendectomy - Social History Smoking Status: Current some day smoker Packs per day: 1/4 Smokeless Tobacco Status: No Alcohol use: occasionally (3-4 beers two days a week), heavy (In the past) Drug use: none Medications and Allergies Fluticasone/Vilanterol [Breo Ellipta 200-25 Mcg INH] 1 each IH DAILY 12/11/16 [ History] Gabapentin [Neurontin] 600 mg PO TID 12/11/16 [History] Gemfibrozil [Lopid] 600 mg PO BIDWM 12/11/16 [History] GlipiZIDE [Glipizide] 10 mg PO BID 12/11/16 [History] Indomethacin 50 mg PO TID PRN 12/11/16 [History] Metformin HCl [Glucophage] 1,000 mg PO BID 12/11/16 [History] Omeprazole [PriLOSEC] 20 mg PO DAILY 12/11/16 [History] Umeclidinium [place] [Incruse Ellipta] 62.5 mcg IH DAILY 12/11/16 [History] Albuterol Neb [Proventil Neb] 2.5 mg IH 3-4XD PRN 12/17/16 [History] Albuterol Sulfate [Albuterol Inhaler] 2 puff IH Q4H PRN 12/17/16 [History] HYDROcodone/Acet 7.5/325 mg [[place] 7.5-325 mg] 1 tab PO Q6H PRN 12/17/16 [ History] Montelukast [Singulair] 10 mg PO DAILY 12/17/16 [History] Allergies No Known Allergies Allergy (Verified 12/11/16 21:24) All Systems Review: A 10-system review of systems was performed and is negative for pertinent findings except as documented above in the HPI. Physical Examination Vital Signs, Last 4 Hours Temp Pulse Resp BP Pulse Ox 12/21/16 11:10 97.8 F 91 16 124/60 95 12/21/16 10:41 16 94 L General: Conversant, No Apparent Distress, Other (Ill appearing male, srikanth skin color) HEENT: Atraumatic, Normocephaly, Mucus Membranes Moist Neck: Normal carotid pulses, Other (JVD+) Cardiac: Reg Rate and Rhythm, Normal S1 and S2, No Murmur Lungs: Other (Lung sounds diminished throughout, poor air movement, respirations slightly labored. ) Neuro: Alert and responsive, No focal deficits noted Abdomen: Soft, Non-Tender, Other (Distended) Skin: No rashes noted on visualized skin Musculoskeletal: No Chest Wall Tenderness Extremities: No Clubbing, No Cyanosis, Normal Pulses, Other (3+ edema from mid thigh to feet bilaterally.) Results 12/20/16 05:39 12/20/16 05:39 Chest X-Ray 12/17/16 15:19 IMPRESSION: New right-sided pleural effusion. Stable cardiomegaly Findings again suggest diffuse interstitial fibrosis D/ / Mundo Salcedo MD / Mundo Salcedo MD Interpreting Provider: Mundo Salcedo MD Abdomen/Pelvis CT 12/17/16 15:20 IMPRESSION: Suspect interstitial edema both lung bases. A small right pleural effusion. Probable cirrhosis of the liver. Ascites. No acute intra-abdominal process. No obstructive uropathy. Appendix not seen. Equivocal urinary bladder wall thickening. D/ / Alex Rojas MD / Alex Rojas MD Interpreting Provider: Alex Rojas MD - Imaging and Cardiology Chest Xray: report reviewed (Right sided pleural effusion. findings support interstitial edema.) Echo: report reviewed - EKG Interpretation EKG results cardiology: personally reviewed (Sr with [facility]) Consult Discharge Plan - Plan Referrals: Tawanda Chi MD [Primary Care Provider] - 12/24/16 9:30 am
--- NOTE | 2016-12-21 15:09 | Internal Med Progress Note ---
<TawnyaMundo garcía - Last Filed: 12/21/16 15:06> Date of Encounter: 12/21/16 Time of Encounter: 15:06 - Assessment and plan (1) Acute systolic CHF (congestive heart failure) Current Visit: Yes Status: Acute Assessment and plan: Patient had significant drop in EF over the last year, patient had a normal EF approximately 1 year ago and his EF is currently 40%. Concern for ischemic cardiomyopathy. Cardiology's been consulted and plan for left heart cath tomorrow. Continue medical management this time with beta humberto and LES inhibitor. (2) Interstitial lung disease Current Visit: Yes Status: Acute Assessment and plan: Versus chronic changes related to COPD. Currently on steroids. Will wean over a long taper as an outpatient. Pulmonology saw the patient and will follow up as an outpatient. (3) Pulmonary hypertension Current Visit: Yes Status: Acute Assessment and plan: Patient has moderate pulmonary hypertension on echo. Would recommend right heart cath with measurement of physiologic variables and vasodilator response for complete evaluation of the patient's pulmonary hypertension. Plan to have this done at the same time as the patient's left heart cath tomorrow. (4) Hypoxemia Current Visit: Yes Status: Acute Assessment and plan: multifactorial, AECOPD, possible ILD, CHF. Continue oxygen and wean down the patient's home dose. (5) Diabetes Current Visit: Yes Status: Chronic Assessment and plan: Blood sugars elevated likely related to steroid use. Have increased her sliding scale to high dose. Given that the patient will be nothing by mouth at midnight for procedure tomorrow we will hold off on any basal insulin at this time. Qualifiers: Diabetes mellitus type: type 2 Diabetes mellitus complication status: with unspecified complications Diabetes mellitus custodial insulin use: without lobsterman use Qualified Code(s): E11.8 - Type 2 diabetes mellitus with unspecified complications (6) DVT prophylaxis Current Visit: Yes Status: Acute Assessment and plan: SQ heparin - Subjective Interval history: Patient seen and examined at bedside. Patient states that he continues to feel better. He reports decrease in swelling. He states his breathing has improved and he has no cough or hemoptysis at this time. - Constitutional Vitals: Temp Pulse Resp BP Pulse Ox 97.8 F 91 16 124/60 95 12/21/16 11:10 12/21/16 11:10 12/21/16 11:10 12/21/16 11:10 12/21/16 11:10 General appearance: Present: A&O X 3, pleasant, no acute distress, answers questions appropriately - Respiratory Respiratory exam: Present: decreased breath sounds, wheezes (Occasional scattered). Absent: rales - Cardiovascular Cardiovascular exam: Present: RRR. Absent: gallop, rubs, systolic murmur - GI/Abdominal GI/Abdominal exam: Present: normal bowel sounds, soft. Absent: distended, tenderness - Neurological Exam Neurological exam: Present: alert, CN II-XII intact, oriented X3, no focal deficits Internal Medicine: Result - Labs CBC & Chem 7: 12/20/16 05:39 12/20/16 05:39 Labs: Cardiac Enzymes 12/17/16 12/18/16 Range/Units 22:22 05:50 CK-MB (CK-2) 0 0 (0-4) % - ABG Interpretation ABG results: PT/INR, D-dimer PT 14.6 Seconds (9.4-12.1) H 12/17/16 15:29 - VTE Documentation of Mechanical Device: Intermittent pneumatic compression device Consult Discharge Plan - Plan Referrals: Tawanda Chi MD [Primary Care Provider] - 12/24/16 9:30 am <Janusz Ponce - Last Filed: 12/21/16 19:01> Date of Encounter: 12/21/16 - Assessment and plan (1) Acute on chronic respiratory failure with hypoxemia Current Visit: Yes Status: Acute (2) Acute systolic CHF (congestive heart failure) Current Visit: Yes Status: Acute (3) Tobacco abuse Current Visit: Yes Status: Chronic (4) Diabetes mellitus type 2 in nonobese Current Visit: Yes Status: Acute - Constitutional Vitals: Temp Pulse Resp BP Pulse Ox 98 F 100 20 118/85 95 12/21/16 15:22 12/21/16 15:22 12/21/16 15:22 12/21/16 15:22 12/21/16 15:22 Internal Medicine: Result - Labs CBC & Chem 7: 12/21/16 16:01 12/20/16 05:39 Labs: Short CBC 12/21/16 Range/Units 16:01 WBC 10.8 (4.3-11.1) K/mcL Hgb 14.1 (12.9-16.9) g/dL Hct 45.1 (37.5-50.1) % Plt Count 139 L (140-400) K/mcL Cardiac Enzymes 12/17/16 12/18/16 Range/Units 22:22 05:50 CK-MB (CK-2) 0 0 (0-4) % - ABG Interpretation ABG results: PT/INR, D-dimer PT 14.0 Seconds (9.4-12.1) H 12/21/16 16:01 - Attending Attestation I examined this patient and my medical decision-making was reviewed with the Resident Physician on 12/21/16. I agree with the documented findings, disposition and treatment plan as described except to the extent set forth below. Mr. Ruiz is currently admitted for acute exac CHF and hypoxemia. He remains moderate to high risk due to potential for worsening cardiac and respiratory symptoms. Mr. Ruiz is sitting on edge of bed. He remains dyspneic. He is concerned about cause of his symptoms. Exam Alert. Comfortable Heart reg No wheeze Echo with decreased EF I/P 1. Acute systolic heart failure 2. acute on chronic hypoxic resp failure 3. diabetes Further diagnoses and plan as above To have left and right heart cath tomorrow.
[2016-12-21] MEDS ORDERED: *HR* Heparin 5,000 UNIT/ML VIAL IVP PRN ×2 (15:43)
[2016-12-21] MEDS ORDERED: *HR* Heparin 5,000 UNIT/ML VIAL IVP ONE (15:43)
[2016-12-21] MEDS ORDERED: Heparin 25,000 UNIT/500 ML D5W 25,000 UNIT/500 ML MLS IVC SCH (15:45)
[2016-12-21 16:21] LABS: Hematocrit 45.1 % (37.5-50.1); Hemoglobin 14.1 g/dL (12.9-16.9); Immature Platelets 16.4 % (1.1-6.1); Mean Corpuscular HGB Conc 31.3 g/dL (31.6-35.5); Mean Corpuscular Hemoglobin 31.3 pg (28.0-33.3); Mean Corpuscular Volume 100.2 fL (83.0-100.0); Mean Platelet Volume 12.5 fL (9.4-12.4); Red Blood Count 4.5 M/mcL (4.19-5.50); Red Cell Distribution Width 13.7 % (11.5-14.5)
[2016-12-21 16:27] LABS: INR 1.3
[2016-12-21 16:30] LABS: Activated Partial Thrombo Time 25.3 Seconds (26.0-36.0)
[2016-12-21] MEDS ORDERED: Furosemide 40 MG/4 ML VIAL IVP SCH (21:00)
--- NOTE | 2016-12-21 22:43 | Pulmonology Progress Note ---
Date of Encounter: 12/21/16 Time of Encounter: 16:00 Assessment and Plan (1) COPD exacerbation Current Visit: Yes Status: Acute Continue current treatment and I feel clinically patient looks better. I talked to primary team, need his records to be faxed to our office from his previous pulmonary physician. (2) Interstitial lung disease Current Visit: Yes Status: Chronic Suspect this is all copd related (3) Tobacco abuse Current Visit: Yes Status: Chronic (4) Tobacco abuse counseling Current Visit: Yes Status: Chronic Subjective Principal diagnosis: Shortness of breath Interval history: Patient still feel his short of breath and no other major events Objective PUL Vital signs: Last Vital Signs Temp 98 F 12/21/16 15:22 Pulse 100 12/21/16 15:22 Resp 18 12/21/16 21:40 BP 118/85 12/21/16 15:22 Pulse Ox 94 L 12/21/16 21:40 General appearance: no acute distress Eyes: nonicteric ENT: oropharynx moist Neck: supple Effort: normal Auscultation: bilateral: rhonchi Percussion: bilateral: not dull Cardiovascular: regular rate and rhythm Gastrointestinal: normoactive bowel sounds normal mental status, non-focal exam affect normal Results - Laboratory Findings CBC and BMP: 12/21/16 16:01 12/20/16 05:39 PT/INR, D-dimer PT 14.0 Seconds (9.4-12.1) H 12/21/16 16:01 Abnormal lab findings: Abnormal lab results MCV 100.2 fL (83.0-100.0) H 12/21/16 16:01 MCHC 31.3 g/dL (31.6-35.5) L 12/21/16 16:01 Plt Count 139 K/mcL (140-400) L 12/21/16 16:01 MPV 12.5 fL (9.4-12.4) H 12/21/16 16:01 Neutrophils # 10.7 K/mcL (1.6-8.9) H 12/20/16 05:39 Lymphocytes # 0.4 K/mcL (0.6-4.6) L 12/20/16 05:39 Immature Plt Fraction 16.4 % (1.1-6.1) H 12/21/16 16:01 PT 14.0 Seconds (9.4-12.1) H 12/21/16 16:01 APTT 25.3 Seconds (26.0-36.0) L 12/21/16 16:01 Sodium 135 mEq/L (136-145) L 12/20/16 05:39 Chloride 90 mEq/L (98-109) L 12/20/16 05:39 Carbon Dioxide 33 mEq/L (19-29) H 12/20/16 05:39 BUN 30 mg/dL (8-26) H D 12/20/16 05:39 BUN/Creatinine Ratio 28 (6-26) H 12/20/16 05:39 Glucose 426 mg/dL (70-99) H 12/20/16 05:39 POC Glucose 346 (58-89) H 12/21/16 20:36 Calculated Osmolality 304 (280-300) H 12/20/16 05:39 Calcium 8.3 mg/dL (8.6-10.8) L 12/20/16 05:39 Magnesium 0.9 mg/dL (1.6-2.6) L 12/18/16 05:50 B-Natriuretic Peptide 1195 pg/mL (0-100) H 12/17/16 15:29 Albumin 3.4 g/dL (3.5-5.0) L 12/20/16 05:39 - Clinical Findings Intake & Output: Intake & Output 12/21/16 12/21/16 12/21/16 07:59 15:59 23:59 Intake Total 600 / 600 280 / 280 240 / 240 Output Total 200 / 200 600 / 600 500 / 500 Balance 400 / 400 -320 / -320 -260 / -260 Weight 79.7 kg - VTE Documentation of Mechanical Device: Venous foot pump, device Consult Discharge Plan - Plan Referrals: Tawanda Chi MD [Primary Care Provider] - 12/24/16 9:30 am
[2016-12-21] MEDS: Azithromycin 500 MG in D5% in Water 250 ML IVPB SCH (23:47)
[2016-12-22 06:10] LABS: Basophils % 0.1 %; Hematocrit 42.1 % (37.5-50.1); Hemoglobin 13.2 g/dL (12.9-16.9); Immature Granulocytes % 0.4 % (0-4); Lymphocytes # 0.4 K/mcL (0.6-4.6); Mean Corpuscular HGB Conc 31.4 g/dL (31.6-35.5); Mean Corpuscular Hemoglobin 30.6 pg (28.0-33.3); Mean Corpuscular Volume 97.7 fL (83.0-100.0); Mean Platelet Volume 12.4 fL (9.4-12.4); Monocytes # 0.2 K/mcL (0.0-1.3); Neutrophils # 9.9 K/mcL (1.6-8.9); Platelet Count 126 K/mcL (140-400); Red Blood Count 4.31 M/mcL (4.19-5.50); Red Cell Distribution Width 13.3 % (11.5-14.5); Segmented Neutrophils % 93.5 %
[2016-12-22 06:29] LABS: BUN/Creatinine Ratio 41 (6-26); Blood Urea Nitrogen 35 mg/dL (8-26); Calcium 7.8 mg/dL (8.6-10.8); Carbon Dioxide 33 mEq/L (19-29); Chloride 94 mEq/L (98-109); Glucose 311 mg/dL (70-99); Osmolality,Calculated 308 (280-300); Potassium 3.5 mEq/L (3.5-4.5); Sodium 139 mEq/L (136-145); eGFR For African Americans > 60 (> 60); eGFR For Non-African Americans > 60 (> 60)
[2016-12-22] MEDS: Budesonide/Formoterol 160/4.5 MDI IH SCH ×2 (07:42→20:28)
[2016-12-22] MEDS: Insulin LISPRO 300 UNITS/3 ML VIAL SQ SCH ×4 (09:52→22:42)
[2016-12-22] MEDS: methylPREDNISolone 125 MG/2 ML VIAL IVP SCH ×3 (09:54→22:41)
[2016-12-22] MEDS: Gabapentin 300 MG CAPSULE PO SCH ×3 (09:54→22:42)
[2016-12-22] MEDS: *HR* HYDROcodone/Acet 7.5/325 mg TABLET PO PRN ×2 (09:59→18:28)
[2016-12-22] MEDS: Furosemide 40 MG/4 ML VIAL IVP SCH ×2 (10:00→22:43)
--- NOTE | 2016-12-22 10:32 | Event Note ---
Date of Encounter: 12/22/16 Time of Encounter: 10:00 - Cardiology Event Note Pt denies new events overnight. Continues to have SOB with activity. Denies lightheadedness or syncope. Denies chest pain. SPO2 91-92% on 2L laying flat for over 15 minutes. Planning for LHC today. RHC was discussed with interventionalist. We will cancel RHC at this time. Vasodilator test not recommended with patients ongoing SOB. Can be re-considered in out-pt setting. Pulmonology was notified. I&O shows patient is 190ml positive for 24 hours despite increasing lasix. Increase lasix to 60 mg BID IV. CHF education reviewed. Low sodium diet and daily weights. Pt seen to have several minutes of atrial fibrillation with RVR last night, HR up to 140 bpm. Continue heparin GTT. CHADS VASc=3. Anticoagulation with coumadin or NOAC was discussed and patient agrees with anticoagulation. WIll discuss again after LHC.
[2016-12-22] MEDS ORDERED: 0.9 % Sodium Chloride 1,000 ML ONE ×2 (12:46→12:50)
[2016-12-22] MEDS ORDERED: Heparin 1,000 UNITS/500 mL NS 500 ML ONE (12:46)
[2016-12-22] MEDS ORDERED: *HR* Heparin 10,000 UNIT/10 ML VIAL ONE (12:46)
[2016-12-22] MEDS ORDERED: Nitroglycerin 1,000 MCG/10 ML VIAL IV ONE (12:46)
--- NOTE | 2016-12-22 12:47 | Pre-Sedation Evaluation ---
Pre-sedation evaluation - Pre-sedation checklist Date of procedure: 12/22/16 Procedure: [facility] Recent Vitals: Last Vital Signs Temp 98.4 F 12/22/16 07:00 Pulse 76 12/22/16 12:00 Resp 16 12/22/16 12:00 BP 106/72 12/22/16 12:00 Pulse Ox 93 L 12/22/16 12:00 H&P (including ROS) documented in medical record: Yes Previous reaction to sedatives/anesthetics: Yes; explain in comment Dietary Status: NPO after Midnight Dentition: No loose teeth or bridges Possible difficult airway: No ASA Classification *see protocol: CLASS III-Severe systemic disease Plan of Care: Pt appropriate candidate for procedure/moderate/conscious sedation , Risks/benefits of procedure/sedation discussed w/ patient/family, If not NPO; Risk of intake outweiged by necessity to perform procedure
[2016-12-22] MEDS ORDERED: *HR* FentaNYL (PF) 100 MCG/2 ML VIAL ONE (12:58)
[2016-12-22] MEDS ORDERED: *HR* Midazolam HCl 2 MG/2 ML VIAL ONE (12:58)
[2016-12-22] MEDS ORDERED: *HR* Bivalirudin 250 MG VIAL IVC ONE (13:39)
[2016-12-22] MEDS ORDERED: Aspirin 325 MG TABLET ONE (13:39)
[2016-12-22] MEDS ORDERED: Nitroglycerin 0.4 MG TAB.SUBL SL PRN (13:50)
[2016-12-22] MEDS ORDERED: 0.9 % Sodium Chloride 1,000 ML IVC SCH (14:00)
--- NOTE | 2016-12-22 15:32 | Invasive Diagnostic Lab ---
Name: Hai Ruiz Date of Study: 12/22/2016 Date: 1960 Ht: 168.0 cm /66.1 in Medical Record#: [id number] Age: 56 Wt: 79.7 kg / 175.71 lb Account/Order#: [id number] Gender: Male BSA: 1.9 Order #: [id number] Fluoro Dose: 676 mGy BMI: 28.24 Procedure Physician: Tal Brown MD Referring MD: Referring MD: Procedures Performed: LEFT HEART CATH Indications: Unstable Angina, New onset CHF Impressions: There is severe one vessel coronary artery disease. There is moderate LV Dysfunction EF 40% Patient had successful Drug-Eluting Stent placement in the proximal LAD. Recommendations: Optimal medical therapy of patient's disease. Aggressive risk factor modification. History/Risk Factors: Diabetes Diabetes Therapy: Insulin Hypertension Dyslipidemia Current/Recent Smoker Chronic Lung Disease Procedure Access obtained in the right Femoral artery by percutaneous puncture Patient had successful Drug-Eluting Stent placement in the proximal LAD. Complications: None, None Contrast: Isovue 190ml Closure Device: Perclose ProGlide Hemodynamics: Pressures Site Systolic/ A Wave Diastolic/ V Wave End Diastolic/ Mean HR AO 100 72 84 76 AO 97 71 83 85 LV 97 11 20 83 LV 91 39 38 144 AO 112 51 83 82 LV 92 30 34 80 AO 100 63 90 80 AO 71 30 51 82 LV Ventriculography Ejection Method: LV Gram Ejection Fraction: 40% Wall Motion: CORNELL Anterobasal Moderate Hypokinesis Anterolateral Moderate Hypokinesis Apical: Moderate Hypokinesis Inferoapical Moderate Hypokinesis Inferobasal Moderate Hypokinesis Coronary Dominance: right Lesion Findings/Interventions * Left Main Coronary Artery The LMCA is angiographically free of disease. * Left Anterior Descending There is a 32 mm long, 80% stenosis in the Proximal LAD. The lesion has a MARIO flow of 3. An intervention was performed on the Proximal LAD with a final stenosis of 0%. There were no lesion complications. The final MARIO flow was 3. * Circumflex There is a 30% stenosis in the 1st Marginal. The lesion has a MARIO flow of 3. * Right Coronary Artery The RCA is angiographically free of disease. The Right PDA is angiographically free of disease. Interventional Device(s) Vessel Segment Type Name Diameter (mm) Length (mm) Proximal LAD drug-eluting stent Synergy 3.5 32 Updated by RT Linda (R) on 12/22/2016 2:05:23 PM Tal Brown MD electronically signed on 12/22/2016 3:28:16 PM with status of Final
--- NOTE | 2016-12-22 16:47 | Internal Med Progress Note ---
<TawnyaMundo garcía - Last Filed: 12/22/16 16:45> Date of Encounter: 12/22/16 Time of Encounter: 16:46 - Assessment and plan (1) Coronary artery disease Current Visit: Yes Status: Acute Assessment and plan: Patient is status post left heart catheterization which revealed 80% stenosis in the proximal LAD. Patient had one drug-eluting stent placed. Patient is chest pain-free at this time. Continue medical management with aspirin, Plavix , statin, beta humberto Qualifiers: Coronary Disease-Associated Artery/Lesion type: [place] artery [place] vs. transplanted heart: [place] heart Associated angina: without angina Qualified Code(s): I25.10 - Atherosclerotic heart disease of [place] coronary artery without angina pectoris (2) Ischemic cardiomyopathy Current Visit: Yes Status: Acute Assessment and plan: Secondary to her disease as discussed above. (3) Acute systolic CHF (congestive heart failure) Current Visit: Yes Status: Acute Assessment and plan: Secondary to ischemic cardiomyopathy. Continue medical therapy with LES inhibitor, beta humberto, diuersis. (4) Interstitial lung disease Current Visit: Yes Status: Acute Assessment and plan: Versus chronic changes related to COPD. Currently on steroids. Will wean over a long taper as an outpatient. Pulmonology saw the patient and will follow up as an outpatient. (5) Pulmonary hypertension Current Visit: Yes Status: Acute Assessment and plan: Patient has moderate pulmonary hypertension on echo. Patient was unable to have a right heart cath at this time, patient will follow-up as an outpatient to further explore this possibility. (6) Hypoxemia Current Visit: Yes Status: Chronic Assessment and plan: Chronic. multifactorial, AECOPD, possible ILD, CHF. Continue oxygen and wean down the patient's home dose. (7) Diabetes Current Visit: Yes Status: Chronic Assessment and plan: Blood sugars elevated likely related to steroid use. Have increased his sliding scale to high dose. Will initiate Levemir 10 units qHS Qualifiers: Diabetes mellitus type: type 2 Diabetes mellitus complication status: with unspecified complications Diabetes mellitus buttermaker continuous churn insulin use: without buttermaker continuous churn use Qualified Code(s): E11.8 - Type 2 diabetes mellitus with unspecified complications (8) DVT prophylaxis Current Visit: Yes Status: Acute Assessment and plan: Heparin 5000 units subcutaneous twice a day. - Subjective Interval history: Patient seen and examined at bedside. Patient states that he continues to feel better. He denies chest pain, dyspnea. - Constitutional Vitals: Temp Pulse Resp BP Pulse Ox 97.5 F L 80 16 111/81 95 12/22/16 14:14 12/22/16 15:53 12/22/16 15:53 12/22/16 15:53 12/22/16 15:53 General appearance: Present: A&O X 3, pleasant, no acute distress, answers questions appropriately - Respiratory Respiratory exam: Present: decreased breath sounds, wheezes (occasional scattered). Absent: rales, rhonchi - Cardiovascular Cardiovascular exam: Present: RRR, +S1, +S2. Absent: gallop, rubs, systolic murmur - Extremities Exam Extremities exam: Present: pedal edema (1+). Absent: tenderness - Neurological Exam Neurological exam: Present: alert, CN II-XII intact, oriented X3, no focal deficits Internal Medicine: Result - Labs CBC & Chem 7: 12/22/16 05:59 12/22/16 05:59 Labs: Short CBC 12/22/16 Range/Units 05:59 WBC 10.6 (4.3-11.1) K/mcL Hgb 13.2 (12.9-16.9) g/dL Hct 42.1 (37.5-50.1) % Plt Count 126 L (140-400) K/mcL Neutrophils # 9.9 H (1.6-8.9) K/mcL BMP 12/22/16 05:59 Sodium 139 Potassium 3.5 Chloride 94 L Carbon Dioxide 33 H BUN 35 H Creatinine 0.85 Glucose 311 H Calcium 7.8 L - ABG Interpretation ABG results: PT/INR, D-dimer PT 14.0 Seconds (9.4-12.1) H 12/21/16 16:01 - VTE Documentation of Mechanical Device: Venous foot pump, device Consult Discharge Plan - Plan Referrals: Tawanda Chi MD [Primary Care Provider] - 12/24/16 9:30 am <Janusz Ponce - Last Filed: 12/22/16 19:17> - Assessment and plan (1) Acute on chronic respiratory failure with hypoxemia Current Visit: Yes Status: Acute (2) Acute systolic CHF (congestive heart failure) Current Visit: Yes Status: Acute (3) Tobacco abuse Current Visit: Yes Status: Chronic (4) Diabetes mellitus type 2 in nonobese Current Visit: Yes Status: Acute (5) Coronary artery disease Current Visit: Yes Status: Acute Qualifiers: Coronary Disease-Associated Artery/Lesion type: [place] artery [place] vs. transplanted heart: [place] heart Associated angina: without angina Qualified Code(s): I25.10 - Atherosclerotic heart disease of [place] coronary artery without angina pectoris - Constitutional Vitals: Temp Pulse Resp BP Pulse Ox 97.5 F L 80 16 111/81 95 12/22/16 14:14 12/22/16 15:53 12/22/16 15:53 12/22/16 15:53 12/22/16 15:53 Internal Medicine: Result - Labs CBC & Chem 7: 12/22/16 05:59 12/22/16 05:59 Labs: Short CBC 12/22/16 Range/Units 05:59 WBC 10.6 (4.3-11.1) K/mcL Hgb 13.2 (12.9-16.9) g/dL Hct 42.1 (37.5-50.1) % Plt Count 126 L (140-400) K/mcL Neutrophils # 9.9 H (1.6-8.9) K/mcL BMP 12/22/16 05:59 Sodium 139 Potassium 3.5 Chloride 94 L Carbon Dioxide 33 H BUN 35 H Creatinine 0.85 Glucose 311 H Calcium 7.8 L - ABG Interpretation ABG results: PT/INR, D-dimer PT 14.0 Seconds (9.4-12.1) H 12/21/16 16:01 - Attending Attestation I examined this patient and my medical decision-making was reviewed with the Resident Physician on 12/22/16. I agree with the documented findings, disposition and treatment plan as described except to the extent set forth below. Mr. Ruiz is currently admitted for acute systolic heart failure and hypoxemia. He is s/p cath and stent today. He remains moderate to high risk due to potential for worsening pulmonary and cardiac issues. Mr. Ruiz is awaiting cath when seen this AM. He is hungry and thirsty. No CP. Exam Alert. Comfortable Heart reg Lungs diminished Abd soft I/P 1. Acute systolic heart failure 2. CAD s/p stent. Further diagnoses and plan as above.
[2016-12-22] MEDS: *HR* Heparin 5,000 UNIT/ML VIAL SQ SCH (17:22)
[2016-12-22] MEDS: Azithromycin 500 MG in D5% in Water 250 ML IVPB SCH (22:41)
[2016-12-22] MEDS: Insulin DETEMIR 100 UNIT/ML X5UNITS SQ SCH (22:42)
[2016-12-23] MEDS: *HR* Heparin 5,000 UNIT/ML VIAL SQ SCH (06:52)
[2016-12-23] MEDS: *HR* HYDROcodone/Acet 7.5/325 mg TABLET PO PRN (06:52)
[2016-12-23] MEDS: Furosemide 40 MG/4 ML VIAL IVP SCH ×2 (07:42→22:36)
[2016-12-23] MEDS: Gabapentin 300 MG CAPSULE PO SCH ×3 (07:42→22:37)
[2016-12-23] MEDS: Aspirin 81 MG TAB.CHEW PO SCH (07:42)
[2016-12-23] MEDS: Insulin LISPRO 300 UNITS/3 ML VIAL SQ SCH ×4 (07:43→22:36)
[2016-12-23] MEDS: Budesonide/Formoterol 160/4.5 MDI IH SCH ×2 (07:57→19:59)
[2016-12-23] MEDS ORDERED: predniSONE 20 MG TABLET PO SCH (09:00)
--- NOTE | 2016-12-23 09:17 | Discharge Summary ---
<Mundo Gonzalez - Last Filed: 12/23/16 09:15> Date of Encounter: 12/23/16 Time of Encounter: 09:17 - Discharge Diagnosis (1) Coronary artery disease Priority: Primary Status: Acute Qualifiers: Coronary Disease-Associated Artery/Lesion type: [place] artery [place] vs. transplanted heart: [place] heart Associated angina: without angina Qualified Code(s): I25.10 - Atherosclerotic heart disease of [place] coronary artery without angina pectoris (2) Ischemic cardiomyopathy Priority: Primary Status: Acute (3) Acute systolic CHF (congestive heart failure) Priority: Primary Status: Acute (4) Interstitial lung disease Priority: Primary Status: Acute (5) Pulmonary hypertension Priority: Primary Status: Acute (6) Hypoxemia Priority: Primary Status: Chronic (7) DVT prophylaxis Priority: Secondary Status: Acute - Discharge Medications Prescriptions: Nitroglycerin 0.4 mg SL Q5MIN PRN #30 tab.subl PRN Reason: Chest Pain Aspirin 81 mg PO DAILY #30 tab.chew Atorvastatin [Lipitor] 20 mg PO HS #30 tablet Carvedilol [Coreg] 6.25 mg PO BIDWM #60 tablet Clopidogrel [Plavix] 75 mg PO DAILY #30 tablet Furosemide [Lasix] 40 mg PO DAILY #30 tablet Lisinopril [Zestril] 2.5 mg PO BID #60 tablet Potassium Chloride 10 meq PO DAILY #30 tab.er.prt Home Medications: Fluticasone/Vilanterol [Breo Ellipta 200-25 Mcg INH] 1 each IH DAILY 12/11/16 [ History] Gabapentin [Neurontin] 600 mg PO TID 12/11/16 [History] Gemfibrozil [Lopid] 600 mg PO BIDWM 12/11/16 [History] GlipiZIDE [Glipizide] 10 mg PO BID 12/11/16 [History] Indomethacin 50 mg PO TID PRN 12/11/16 [History] Metformin HCl [Glucophage] 1,000 mg PO BID 12/11/16 [History] Omeprazole [PriLOSEC] 20 mg PO DAILY 12/11/16 [History] Umeclidinium [place] [Incruse Ellipta] 62.5 mcg IH DAILY 12/11/16 [History] Albuterol Neb [Proventil Neb] 2.5 mg IH 3-4XD PRN 12/17/16 [History] Albuterol Sulfate [Albuterol Inhaler] 2 puff IH Q4H PRN 12/17/16 [History] HYDROcodone/Acet 7.5/325 mg [Golden 7.5-325 mg] 1 tab PO Q6H PRN 12/17/16 [ History] Montelukast [Singulair] 10 mg PO DAILY 12/17/16 [History] Aspirin 81 mg PO DAILY #30 tab.chew 12/23/16 [Rx] Atorvastatin [Lipitor] 20 mg PO HS #30 tablet 12/23/16 [Rx] Carvedilol [Coreg] 6.25 mg PO BIDWM #60 tablet 12/23/16 [Rx] Clopidogrel [Plavix] 75 mg PO DAILY #30 tablet 12/23/16 [Rx] Furosemide [Lasix] 40 mg PO DAILY #30 tablet 12/23/16 [Rx] Lisinopril [Zestril] 2.5 mg PO BID #60 tablet 12/23/16 [Rx] Nitroglycerin 0.4 mg SL Q5MIN PRN #30 tab.subl 12/23/16 [Rx] Potassium Chloride 10 meq PO DAILY #30 tab.er.prt 12/23/16 [Rx] Allergies/Adverse Reactions: Allergies No Known Allergies Allergy (Verified 12/11/16 21:24) Procedures/tests Complete & Pending: Procedures Performed prior 72 hours Category Date Time Status CL Cardiac Catheterization [CL] Routine Ski Tow Operator 12/21/16 12:59 Completed CL Cardiac Catheterization [CL] Routine Ski Tow Operator 12/21/16 15:48 Ordered Date of admission: 12/17/16 22:02 Primary care physician: Tawanda Chi MD Consults: 12/20/16 10:58 Consult to Pulmonology [CONS] Routine Consulting Provider: [facility] [place] Reason for Consult: AECOPD. history of ILD. Patient requesting loca pulmonoogist Call Completed: Yes 12/20/16 17:51 Consult to Cardiology [CONS] Routine Comment: Consulting Provider: [facility] [place] Reason for Consult: New onset CHF. EF of 40% last EF in 2015 was 60%. Possible Ischemic cardiomyopathy? Call Completed: No 12/22/16 13:50 Consult to Cardiac Rehabilitation-Phase1 [CONS] Routine Comment: Reason for Consult: post op cath Call Completed: Yes 12/22/16 13:51 Consult to Cardiac Rehabilitation-Phase1 [CONS] Routine Comment: Reason for Consult: post op cath Call Completed: Yes Discharging clinician: Mundo Gonzalez Anticipated date of discharge: 12/23/16 - Patient Status Disposition: Home, Self-Care Condition: Good Functional capacity at discharge: independent ambulation Overall status at discharge: patient is progressing back to baseline - Discharge Instructions Instructions: Heart Failure (DC), Left Heart Catheterization (DC), Acute Respiratory Distress Syndrome (DC), Syncope (DC), Diabetes Mellitus Type 2 in Adults (DC), Chronic Obstructive Pulmonary Disease (DC), Pneumonia (DC) Follow Up With: [facility] [Provider Group] (1-2 weeks) Tano Valencia MD [Partnered Physician] - 01/06/17 2:30 pm (1-2 weeks) Tawanda Chi MD [Primary Care Provider] - 12/29/16 2:30 pm Additional Instructions: Please restart her home medications as directed. Please fill your prescriptions and start her home medications including aspirin , Plavix, atorvastatin, carvedilol, lisinopril, Lasix, potassium. Please use nitroglycerin under your tongue as needed for chest pain. As wear oxygen at all times. Please follow up with pulmonology and cardiology as scheduled. Please follow-up with your primary care physician in one to 2 weeks. Please return for any new or worsening symptoms. - Diet and Activity Activity: increase activity as tolerated, wear oxygen at all times Diet: low salt diet Interval History: Patient seen and examined at bedside. Patient has no complaints at this time. Denies chest pain, shortness of breath, cough. Hospital course: Mr. Ruiz is a 56 year old male with history of interstitial lung disease presented with shortness of breath and syncope. Patient was evaluated pulmonary hypertension found abnormal retention on echocardiogram. He was consulted and will manage the patient as outpatient. Echo revealed a decreased EF and the patient underwent cardiac catheterization which revealed a lesion in the proximal LAD which he received a drug-eluting stent. At the time of discharge the patient was back at his baseline and had no complaints of chest pain or shortness of breath or syncope. Patient will be discharged home in stable condition. - Time Spent with Patient Total time spent providing and/or coordinating discharge services: - Constitutional Vitals: Temp Pulse Resp BP Pulse Ox 97.4 F L 77 18 116/88 93 L 12/23/16 07:00 12/23/16 07:00 12/23/16 07:57 12/23/16 07:00 12/23/16 07:57 General appearance: Present: A&O X 3, pleasant, no acute distress, answers questions appropriately - Respiratory Respiratory exam: Present: decreased breath sounds. Absent: rales, rhonchi, wheezes - Cardiovascular Cardiovascular exam: Present: RRR. Absent: gallop, rubs, systolic murmur - GI/Abdominal GI/Abdominal exam: Present: normal bowel sounds, soft. Absent: distended, tenderness - Extremities Exam Extremities exam: Present: pedal edema (1+) - Neurological Exam Neurological exam: Present: alert, oriented X3, no focal deficits - VTE Documentation of Mechanical Device: Venous foot pump, device <Janusz Ponce - Last Filed: 12/23/16 19:22> - Discharge Diagnosis (1) Acute on chronic respiratory failure with hypoxemia Priority: Primary Status: Acute (2) Acute systolic CHF (congestive heart failure) Status: Acute (3) Tobacco abuse Status: Chronic (4) Diabetes mellitus type 2 in nonobese Status: Acute (5) Coronary artery disease Status: Acute Qualifiers: Coronary Disease-Associated Artery/Lesion type: [place] artery [place] vs. transplanted heart: [place] heart Associated angina: without angina Qualified Code(s): I25.10 - Atherosclerotic heart disease of [place] coronary artery without angina pectoris Procedures/tests Complete & Pending: Procedures Performed prior 72 hours Category Date Time Status CL Cardiac Catheterization [CL] Routine Ski Tow Operator 12/21/16 12:59 Completed CL Cardiac Catheterization [CL] Routine Ski Tow Operator 12/21/16 15:48 Ordered Date of admission: 12/17/16 22:02 Primary care physician: Tawanda Chi MD Consults: 12/20/16 10:58 Consult to Pulmonology [CONS] Routine Consulting Provider: [facility] Reason for Consult: AECOPD. history of ILD. Patient requesting loca pulmonoogist Call Completed: Yes 12/20/16 17:51 Consult to Cardiology [CONS] Routine Comment: Consulting Provider: [facility] [place] Reason for Consult: New onset CHF. EF of 40% last EF in 2014 was 60%. Possible Ischemic cardiomyopathy? Call Completed: No 12/22/16 13:50 Consult to Cardiac Rehabilitation-Phase1 [CONS] Routine Comment: Reason for Consult: post op cath Call Completed: Yes 12/22/16 13:51 Consult to Cardiac Rehabilitation-Phase1 [CONS] Routine Comment: Reason for Consult: post op cath Call Completed: Yes Hospital course: Mr. Ruiz is a 56 year old male - Time Spent with Patient Total time spent providing and/or coordinating discharge services: 38min - Constitutional Vitals: Temp Pulse Resp BP Pulse Ox 97.6 F 89 18 133/86 93 L 12/23/16 15:33 12/23/16 15:33 12/23/16 15:33 12/23/16 15:33 12/23/16 15:33 - Attending Attestation I examined this patient and my medical decision-making was reviewed with the Resident Physician on 12/23/16. I agree with the documented findings, disposition and treatment plan as described except to the extent set forth below. Mr. Ruiz feels OK. Breathing is OK today. No pain. No fever or chills. Exam Alert. Comfortable Heart irreg Lungs with some rales Plan D/C today Follow up with PCP and cardiology.
[2016-12-23 09:52] LABS: Basophils % 0.1 %; Hematocrit 42.9 % (37.5-50.1); Hemoglobin 13.8 g/dL (12.9-16.9); Immature Granulocytes % 0.4 % (0-4); Lymphocytes # 0.6 K/mcL (0.6-4.6); Lymphocytes % 3.6 %; Mean Corpuscular HGB Conc 32.2 g/dL (31.6-35.5); Mean Corpuscular Hemoglobin 31.9 pg (28.0-33.3); Mean Corpuscular Volume 99.3 fL (83.0-100.0); Mean Platelet Volume 12.4 fL (9.4-12.4); Monocytes # 0.8 K/mcL (0.0-1.3); Monocytes % 5.1 %; Neutrophils # 14.2 K/mcL (1.6-8.9); Platelet Count 120 K/mcL (140-400); Red Blood Count 4.32 M/mcL (4.19-5.50); Red Cell Distribution Width 13.3 % (11.5-14.5); Segmented Neutrophils % 90.8 %
[2016-12-23 10:11] LABS: BUN/Creatinine Ratio 39 (6-26); Blood Urea Nitrogen 35 mg/dL (8-26); Calcium 7.7 mg/dL (8.6-10.8); Carbon Dioxide 34 mEq/L (19-29); Chloride 96 mEq/L (98-109); Glucose 227 mg/dL (70-99); Magnesium 1.2 mg/dL (1.6-2.6); Osmolality,Calculated 307 (280-300); Potassium 3.2 mEq/L (3.5-4.5); Sodium 141 mEq/L (136-145); eGFR For African Americans > 60 (> 60); eGFR For Non-African Americans > 60 (> 60)
[2016-12-23] MEDS ORDERED: Magnesium Sulfate 2 GM in D5% in Water 100 ML IVPB ONE (10:50)
--- NOTE | 2016-12-23 10:55 | Cardiology Progress Note ---
Date of Encounter: 12/23/16 Time of Encounter: 10:52 Assessment and Plan (1) Acute systolic CHF (congestive heart failure) Current Visit: Yes Status: Acute Acute systolic and right sided heart failure. Ischemic cardiomyoapthy, s/p PCI to the pLAD. TTE EF 40% moderately reduced systolic function, moderately dilated right ventricle with reduction in function. There is right ventricular septal flattening consistent with pressure overload. Mild pulmonic regurgitation, mild tricuspid regurgitation, and moderate pulmonary hypertension. BNP 1145. Continues to have fluid overload on exam but improved. CT scan showed pulmonary edema. SOB multi-factoral in setting of CHF, pulmonary hypertension, and lung disease. Lasix increased to 60 mg IV BID yesterday and output improved. Recommend continuing IV lasix. Monitor BMP. Kidney function remains normal. Replace potassium and magnesium. Strict I&O and daily weights. -1875 ml last 24 hours. Low-sodium diet. 1500 ml fluid restriction. CHF education reviewed with patient. Continue carvedilol and lisinopril. Change to maintenance dose of lasix at discharge Close out-pt f/u for CHF. (2) COPD exacerbation Current Visit: Yes Status: Acute Primary team and pulmonology following. (3) Diabetes Current Visit: Yes Status: Chronic Management per IM. Qualifiers: Diabetes mellitus type: type 2 Diabetes mellitus complication status: with unspecified complications Diabetes mellitus intermediate insulin use: without termite control technician use Qualified Code(s): E11.8 - Type 2 diabetes mellitus with unspecified complications (4) Atrial fibrillation Current Visit: Yes Status: Acute Pt seen to have paroxysmal atrial flutter and atrial fibrillation during stay. No recurrent afib over last 12 hours. Carvedilol increased. CHADS VASc= 4. I discussed coumadin therapy vs NOAC and patient is agreeable to anticoagulation. Discussed with Dr. Odom and we will start xarelto. Rx printed. Qualifiers: Atrial fibrillation type: paroxysmal Qualified Code(s): I48.0 - Paroxysmal atrial fibrillation Discussion w patient/family: The assessment and plan as outlined above was discussed with the patient and/or family members who expressed understanding and agreement. All questions were answered. Thank you for involving us in the care of your patient. Please call with any questions. Subjective Principal diagnosis: Shortness of breath Interval history: Pt reports no significant change in symptoms. No events overnight. Objective Vital Signs, Last 4 Hours Temp Pulse Resp BP Pulse Ox 12/23/16 07:57 18 93 L 12/23/16 07:00 97.4 F L 77 18 116/88 94 L General: Conversant HEENT: Atraumatic, Normocephaly, Mucus Membranes Moist Neck: No JVD, Normal carotid pulses Cardiac: Reg Rate and Rhythm, Normal S1 and S2, No Murmur Lungs: Other (respirations diminished, spo2 89-92% on 2l, respirations slightly labored. ) Neuro: Alert and responsive, No focal deficits noted Abdomen: Soft, Non-Tender Skin: No rashes noted on visualized skin Musculoskeletal: No Chest Wall Tenderness Extremities: No Clubbing, No Cyanosis, Normal Pulses, Other (2+ edema above his knees. ) Results 12/23/16 09:35 12/23/16 09:35 Lab Results 12/22/16 12/23/16 12/23/16 11:48 09:35 09:35 WBC 15.6 H Hgb 13.8 Hct 42.9 Plt Count 120 L APTT 68.7 H Sodium 141 Potassium 3.2 L Chloride 96 L Carbon Dioxide 34 H BUN 35 H Creatinine 0.90 Glucose 227 H Calcium 7.7 L Magnesium 1.2 L - EKG Interpretation EKG results cardiology: other (Avg HR was 80 bpm. No recurrent afib seen. 3 small runs of SVT seen.) - VTE Documentation of Mechanical Device: Venous foot pump, device Consult Discharge Plan - Plan Instructions: Heart Failure (DC), Left Heart Catheterization (DC), Acute Respiratory Distress Syndrome (DC), Syncope (DC), Diabetes Mellitus Type 2 in Adults (DC), Chronic Obstructive Pulmonary Disease (DC), Pneumonia (DC) Additional Instructions: Please restart her home medications as directed. Please fill your prescriptions and start her home medications including aspirin , Plavix, atorvastatin, carvedilol, lisinopril, Lasix, potassium. Please use nitroglycerin under your tongue as needed for chest pain. As wear oxygen at all times. Please follow up with pulmonology and cardiology as scheduled. Please follow-up with your primary care physician in one to 2 weeks. Please return for any new or worsening symptoms. Referrals: [facility] [Provider Group] (1-2 weeks) Tano Valencia MD [Partnered Physician] - 01/06/17 2:30 pm (1-2 weeks) Tawanda Chi MD [Primary Care Provider] - 12/29/16 2:30 pm Prescriptions: Nitroglycerin 0.4 mg SL Q5MIN PRN #30 tab.subl PRN Reason: Chest Pain Aspirin 81 mg PO DAILY #30 tab.chew Atorvastatin [Lipitor] 20 mg PO HS #30 tablet Carvedilol [Coreg] 6.25 mg PO BIDWM #60 tablet Clopidogrel [Plavix] 75 mg PO DAILY #30 tablet Furosemide [Lasix] 40 mg PO DAILY #30 tablet Lisinopril [Zestril] 2.5 mg PO BID #60 tablet Potassium Chloride 10 meq PO DAILY #30 tab.er.prt
[2016-12-23] MEDS: *HR* Rivaroxaban 10 MG TABLET PO SCH (17:57)
[2016-12-23] MEDS: Insulin DETEMIR 100 UNIT/ML X5UNITS SQ SCH (22:37)
[2016-12-24 05:16] LABS: Basophils % 0.1 %; Eosinophils % 0.1 %; Hemoglobin 12.9 g/dL (12.9-16.9); Immature Granulocytes % 0.8 % (0-4); Lymphocytes # 2.3 K/mcL (0.6-4.6); Lymphocytes % 13.7 %; Mean Corpuscular HGB Conc 31.5 g/dL (31.6-35.5); Mean Corpuscular Volume 98.6 fL (83.0-100.0); Mean Platelet Volume 12.7 fL (9.4-12.4); Monocytes # 1.6 K/mcL (0.0-1.3); Monocytes % 9.5 %; Neutrophils # 12.7 K/mcL (1.6-8.9); Platelet Count 121 K/mcL (140-400); Red Blood Count 4.16 M/mcL (4.19-5.50); Red Cell Distribution Width 13.2 % (11.5-14.5); Segmented Neutrophils % 75.8 %
[2016-12-24 05:48] LABS: BUN/Creatinine Ratio 60 (6-26); Calcium 7.5 mg/dL (8.6-10.8); Carbon Dioxide 37 mEq/L (19-29); Chloride 97 mEq/L (98-109); Glucose 139 mg/dL (70-99); Magnesium 1.6 mg/dL (1.6-2.6); Osmolality,Calculated 312 (280-300); Potassium 3.6 mEq/L (3.5-4.5); Sodium 143 mEq/L (136-145); eGFR For African Americans > 60 (> 60); eGFR For Non-African Americans > 60 (> 60)
[2016-12-24 05:49] LABS: Blood Urea Nitrogen 50 mg/dL (8-26)
[2016-12-24] MEDS: Budesonide/Formoterol 160/4.5 MDI IH SCH ×2 (07:48→22:26)
[2016-12-24] MEDS: Levalbuterol Neb 1.25 MG/3 ML IH PRN (07:54)
--- NOTE | 2016-12-24 09:07 | Internal Med Progress Note ---
<TawnyaMundo garcía - Last Filed: 12/24/16 08:56> Date of Encounter: 12/24/16 Time of Encounter: 08:56 - Assessment and plan (1) Coronary artery disease Current Visit: Yes Status: Acute Assessment and plan: Patient is status post left heart catheterization which revealed 80% stenosis in the proximal LAD. Patient had one drug-eluting stent placed. Patient is chest pain-free at this time. Continue medical management with aspirin, Plavix , statin, beta humberto Qualifiers: Coronary Disease-Associated Artery/Lesion type: [place] artery [place] vs. transplanted heart: [place] heart Associated angina: without angina Qualified Code(s): I25.10 - Atherosclerotic heart disease of [place] coronary artery without angina pectoris (2) Ischemic cardiomyopathy Current Visit: Yes Status: Acute Assessment and plan: Secondary to heart disease as discussed above. (3) Acute systolic CHF (congestive heart failure) Current Visit: Yes Status: Acute Assessment and plan: Secondary to ischemic cardiomyopathy. Continue medical therapy with LES inhibitor, beta humberto, diuersis. (4) Interstitial lung disease Current Visit: Yes Status: Acute Assessment and plan: Versus chronic changes related to COPD. Steroids have been stopped. Pulmonology saw the patient and will follow up as an outpatient. (5) Pulmonary hypertension Current Visit: Yes Status: Acute Assessment and plan: Patient has moderate pulmonary hypertension on echo. Patient was unable to have a right heart cath at this time, patient will follow-up as an outpatient to further explore this possibility. Patient has significant edema, will add Zaroxolyn for diuresis. We will repeat chest x-ray (6) Hypoxemia Current Visit: Yes Status: Chronic Assessment and plan: Chronic. multifactorial, AECOPD, possible ILD, CHF. Continue oxygen and wean down the patient's home dose. (7) DVT prophylaxis Current Visit: Yes Status: Acute Assessment and plan: Heparin 5000 units subcutaneous twice a day. - Subjective Interval history: Patient seen and examined at bedside. Patient states he feels little worse today. He feels his shortness of breath is slightly worse and his swelling is worse. - Constitutional Vitals: Temp Pulse Resp BP Pulse Ox 97.6 F 87 16 115/87 96 12/24/16 06:00 12/24/16 06:00 12/24/16 07:54 12/24/16 07:54 12/24/16 07:54 General appearance: Present: A&O X 3, pleasant, no acute distress, answers questions appropriately - Respiratory Respiratory exam: Present: rales (Bilateral basilar). Absent: rhonchi, wheezes - Cardiovascular Cardiovascular exam: Present: RRR. Absent: gallop, rubs, systolic murmur - GI/Abdominal GI/Abdominal exam: Present: normal bowel sounds, soft. Absent: distended, tenderness - Extremities Exam Extremities exam: Present: pedal edema (2+) - Neurological Exam Neurological exam: Present: alert, CN II-XII intact, oriented X3, no focal deficits Internal Medicine: Result - Labs CBC & Chem 7: 12/24/16 04:23 12/24/16 04:23 Labs: Short CBC 12/23/16 12/24/16 Range/Units 09:35 04:23 WBC 15.6 H 16.7 H (4.3-11.1) K/mcL Hgb 13.8 12.9 (12.9-16.9) g/dL Hct 42.9 41.0 (37.5-50.1) % Plt Count 120 L 121 L (140-400) K/mcL Neutrophils # 14.2 H 12.7 H (1.6-8.9) K/mcL BMP 12/23/16 12/24/16 09:35 04:23 Sodium 141 143 Potassium 3.2 L 3.6 Chloride 96 L 97 L Carbon Dioxide 34 H 37 H BUN 35 H 50 H D Creatinine 0.90 0.84 Glucose 227 H 139 H Calcium 7.7 L 7.5 L - ABG Interpretation ABG results: PT/INR, D-dimer PT 14.0 Seconds (9.4-12.1) H 12/21/16 16:01 - VTE Documentation of Mechanical Device: Venous foot pump, device Consult Discharge Plan - Plan Instructions: Heart Failure (DC), Left Heart Catheterization (DC), Acute Respiratory Distress Syndrome (DC), Syncope (DC), Diabetes Mellitus Type 2 in Adults (DC), Chronic Obstructive Pulmonary Disease (DC), Pneumonia (DC) Additional Instructions: Please restart her home medications as directed. Please fill your prescriptions and start her home medications including aspirin , Plavix, atorvastatin, carvedilol, lisinopril, Lasix, potassium. Please use nitroglycerin under your tongue as needed for chest pain. As wear oxygen at all times. Please follow up with pulmonology and cardiology as scheduled. Please follow-up with your primary care physician in one to 2 weeks. Please return for any new or worsening symptoms. Referrals: [facility] [Provider Group] (1-2 weeks) Tano Valencia MD [Partnered Physician] - 01/06/17 2:30 pm (1-2 weeks) Tawanda Chi MD [Primary Care Provider] - 12/29/16 2:30 pm Prescriptions: Nitroglycerin 0.4 mg SL Q5MIN PRN #30 tab.subl PRN Reason: Chest Pain Aspirin 81 mg PO DAILY #30 tab.chew Atorvastatin [Lipitor] 20 mg PO HS #30 tablet Carvedilol [Coreg] 6.25 mg PO BIDWM #60 tablet Clopidogrel [Plavix] 75 mg PO DAILY #30 tablet Furosemide [Lasix] 40 mg PO DAILY #30 tablet Lisinopril [Zestril] 2.5 mg PO BID #60 tablet Potassium Chloride 10 meq PO DAILY #30 tab.er.prt <Janusz Ponce - Last Filed: 12/24/16 18:49> - Assessment and plan (1) Acute on chronic respiratory failure with hypoxemia Current Visit: Yes Status: Acute (2) Acute systolic CHF (congestive heart failure) Current Visit: Yes Status: Acute (3) Tobacco abuse Current Visit: Yes Status: Chronic (4) Diabetes mellitus type 2 in nonobese Current Visit: Yes Status: Acute (5) Coronary artery disease Current Visit: Yes Status: Acute Qualifiers: Coronary Disease-Associated Artery/Lesion type: [place] artery [place] vs. transplanted heart: [place] heart Associated angina: without angina Qualified Code(s): I25.10 - Atherosclerotic heart disease of [place] coronary artery without angina pectoris - Constitutional Vitals: Temp Pulse Resp BP Pulse Ox 97.4 F L 93 24 96/71 93 L 12/24/16 12:43 12/24/16 12:43 12/24/16 12:43 12/24/16 12:43 12/24/16 12:43 Internal Medicine: Result - Labs CBC & Chem 7: 12/24/16 04:23 12/24/16 04:23 Labs: Short CBC 12/24/16 Range/Units 04:23 WBC 16.7 H (4.3-11.1) K/mcL Hgb 12.9 (12.9-16.9) g/dL Hct 41.0 (37.5-50.1) % Plt Count 121 L (140-400) K/mcL Neutrophils # 12.7 H (1.6-8.9) K/mcL BMP 12/24/16 04:23 Sodium 143 Potassium 3.6 Chloride 97 L Carbon Dioxide 37 H BUN 50 H D Creatinine 0.84 Glucose 139 H Calcium 7.5 L - ABG Interpretation ABG results: PT/INR, D-dimer PT 14.0 Seconds (9.4-12.1) H 12/21/16 16:01 - Impressions Impressions Chest X-Ray 12/24/16 09:09 IMPRESSION: No acute cardiopulmonary process. Previously identified right pleural effusion has resolved. D/ / 12/24/2016 12:35:18 Timothy Vu MD / [place] Interpreting Provider: Timothy Vu MD - Attending Attestation I examined this patient and my medical decision-making was reviewed with the Resident Physician on 12/24/16. I agree with the documented findings, disposition and treatment plan as described except to the extent set forth below. Mr Ruiz is currently admitted for acute hypoxic resp failure due to CHF and ischemic heart disease. He remains moderate to high risk due to potential for further cardiac complications. Mr. Ruiz is still having a lot of swelling. His head feels "full" and he feels funny when standing up. No chest pain. No fever. Exam Alert. Heart reg No wheeze Edema present both legs I/P 1. Acute systolic CHF 2. ILD 3. Pulmonary hypertension 4. CAD s/p stent Further diagnoses and plan as above.
[2016-12-24] MEDS: Furosemide 40 MG/4 ML VIAL IVP SCH ×2 (11:31→22:41)
[2016-12-24] MEDS: Aspirin 81 MG TAB.CHEW PO SCH (11:32)
[2016-12-24] MEDS: metOLazone 5 MG TABLET PO SCH (11:32)
[2016-12-24] MEDS: Gabapentin 300 MG CAPSULE PO SCH ×3 (11:33→22:41)
[2016-12-24] MEDS: Insulin LISPRO 300 UNITS/3 ML VIAL SQ SCH ×4 (11:33→22:42)
--- NOTE | 2016-12-24 14:30 | Cardiology Progress Note ---
Date of Encounter: 12/24/16 Time of Encounter: 14:28 Assessment and Plan (1) Acute systolic CHF (congestive heart failure) Current Visit: Yes Status: Acute Acute systolic and right sided heart failure. Ischemic cardiomyoapthy, s/p PCI to the pLAD. TTE EF 40% moderately reduced systolic function, moderately dilated right ventricle with reduction in function. There is right ventricular septal flattening consistent with pressure overload. Mild pulmonic regurgitation, mild tricuspid regurgitation, and moderate pulmonary hypertension. BNP 1145. Continues to have fluid overload on exam. CT scan showed pulmonary edema. SOB multi-factoral in setting of CHF, pulmonary hypertension, and lung disease. Recommend continuing IV lasix. Strict I&O and daily weights. Cumulative I/O negative - 7464ml. Low-sodium diet. 1500 ml fluid restriction. CHF education reviewed with patient. Continue BB. BP will currently not tolerate LES-I. Will discuss switching to Toprol since pt is hypotensive. Change to maintenance dose of lasix at discharge Close out-pt f/u for CHF. (2) Atrial fibrillation Current Visit: Yes Status: Acute Pt seen to have paroxysmal atrial flutter and atrial fibrillation during stay. No recurrent afib over last 12 hours. Carvedilol increased yesterday. Will discuss switching to Toprol for a less hypertensive effect. CHADS VASc= 4. I discussed coumadin therapy vs NOAC and patient is agreeable to anticoagulation. Xarelto started. He is on triple therapy with recent PCI. Monitor closely for bleeding. Reports blood when he blows his nose, but only smears of blood noted. H&H stable. Qualifiers: Atrial fibrillation type: paroxysmal Qualified Code(s): I48.0 - Paroxysmal atrial fibrillation (3) Coronary artery disease Current Visit: Yes Status: Acute SHEYLA to prox LAD on [facility] 12/22/16. Continue ASA, Plavix, Statin, BB. Qualifiers: Coronary Disease-Associated Artery/Lesion type: [place] artery [place] vs. transplanted heart: [place] heart Associated angina: without angina Qualified Code(s): I25.10 - Atherosclerotic heart disease of [place] coronary artery without angina pectoris (4) Ischemic cardiomyopathy Current Visit: Yes Status: Acute EF 40%. [facility] 12/22 SHEYLA to prox LAD. Continue BB. BP unable to tolerate addition of LES-I. Re-evaluate EF as outpt 3 months s/p revascularization. Discussion w patient/family: The assessment and plan as outlined above was discussed with the patient and/or family members who expressed understanding and agreement. All questions were answered. Thank you for involving us in the care of your patient. Please call with any questions. I will discuss all the above with Dr. Odom and make changes as necessary. Subjective Principal diagnosis: Shortness of breath Interval history: Pt reports he is still short of breath and does not feel his lower extremity edema has improved. He denies chest pain. He reports feeling like he is going to pass out when he tries to walk around. Objective Vital Signs, Last 4 Hours Temp Pulse Resp BP Pulse Ox 12/24/16 12:43 97.4 F L 93 24 96/71 93 L Vital Signs Temp Pulse Resp BP Pulse Ox 12/24/16 12:43 97.4 F L 93 24 96/71 93 L 12/24/16 08:50 97.8 F 87 18 123/93 94 L 12/24/16 07:54 16 115/87 96 12/24/16 06:00 97.6 F 87 16 115/87 96 12/23/16 22:35 92 L 12/23/16 20:00 98.1 F 92 16 123/79 92 L 12/23/16 15:33 97.6 F 89 18 133/86 93 L Intake and Output 12/23/16 12/24/16 12/24/16 23:59 07:59 15:59 Intake Total 320 / 320 960 / 960 Output Total 200 / 200 1775 / 1775 0 / 0 Balance 120 / 120 -1775 / -1775 960 / 960 Intake: Oral 320 / 320 960 / 960 Output: Urine 200 / 200 1775 / 1775 0 / 0 Other: Meal Dinner Lunch Percent of Meal Consumed 100% 100% Blood Glucose* 212 118 186 General: Conversant, No Apparent Distress HEENT: Atraumatic, Normocephaly, Mucus Membranes Moist Neck: Normal carotid pulses Cardiac: Reg Rate and Rhythm, Normal S1 and S2, No Murmur Lungs: Other (diminished, wheezes) Neuro: Alert and responsive, No focal deficits noted Abdomen: Soft, Non-Tender Skin: No rashes noted on visualized skin Musculoskeletal: No Chest Wall Tenderness Extremities: Other (2+ BLE edema) Results 12/24/16 04:23 12/24/16 04:23 Lab Results 12/24/16 12/24/16 04:23 04:23 WBC 16.7 H Hgb 12.9 Hct 41.0 Plt Count 121 L Sodium 143 Potassium 3.6 Chloride 97 L Carbon Dioxide 37 H BUN 50 H D Creatinine 0.84 Glucose 139 H Calcium 7.5 L Magnesium 1.6 Short CBC 12/24/16 Range/Units 04:23 WBC 16.7 H (4.3-11.1) K/mcL Hgb 12.9 (12.9-16.9) g/dL Hct 41.0 (37.5-50.1) % Plt Count 121 L (140-400) K/mcL Neutrophils # 12.7 H (1.6-8.9) K/mcL BMP 12/24/16 Range/Units 04:23 Sodium 143 (136-145) mEq/L Potassium 3.6 (3.5-4.5) mEq/L Chloride 97 L (98-109) mEq/L Carbon Dioxide 37 H (19-29) mEq/L BUN 50 H D (8-26) mg/dL Creatinine 0.84 (0.72-1.25) mg/dL Glucose 139 H (70-99) mg/dL Calcium 7.5 L (8.6-10.8) mg/dL Short CBC 12/24/16 Range/Units 04:23 WBC 16.7 H (4.3-11.1) K/mcL Hgb 12.9 (12.9-16.9) g/dL Hct 41.0 (37.5-50.1) % Plt Count 121 L (140-400) K/mcL Neutrophils # 12.7 H (1.6-8.9) K/mcL BMP 12/24/16 Range/Units 04:23 Sodium 143 (136-145) mEq/L Potassium 3.6 (3.5-4.5) mEq/L Chloride 97 L (98-109) mEq/L Carbon Dioxide 37 H (19-29) mEq/L BUN 50 H D (8-26) mg/dL Creatinine 0.84 (0.72-1.25) mg/dL Glucose 139 H (70-99) mg/dL Calcium 7.5 L (8.6-10.8) mg/dL Impressions Chest X-Ray 12/24/16 09:09 IMPRESSION: No acute cardiopulmonary process. Previously identified right pleural effusion has resolved. D/ / 12/24/2016 12:35:18 Timothy Vu MD / [email or web address] Interpreting Provider: Timothy Vu MD Active Medications Acetaminophen/Hydrocodone Bitart ([place] 7.5-325 Mg) 1 tab PO Q6HR PRN PRN Reason: Pain Stop: 06/19/17 01:40 Last Admin: 12/23/16 06:52 Dose: 1 tab Aspirin (Aspirin) 81 mg PO DAILY TAO Stop: 06/24/17 09:01 Last Admin: 12/24/16 11:32 Dose: 81 mg Atorvastatin Calcium (Lipitor) 20 mg PO HS [facility] Stop: 06/23/17 21:01 Last Admin: 12/23/16 22:37 Dose: 20 mg Budesonide/Formoterol Fumarate (Symbicort) 2 puff IH BIDR TAO PRN Reason: Protocol Stop: 06/21/17 22:01 Last Admin: 12/24/16 07:48 Dose: 2 puff Carvedilol (Coreg) 6.25 mg PO BIDWM TAO PRN Reason: Protocol Stop: 06/22/17 17:01 Last Admin: 12/24/16 11:31 Dose: 6.25 mg Clopidogrel Bisulfate (Plavix) 75 mg PO DAILY [facility] Stop: 06/24/17 09:01 Last Admin: 12/24/16 11:31 Dose: 75 mg Dextrose/Water (Dextrose 50% (Syg)) 25 ml IVP AD PRN PRN Reason: Hypoglycemia Stop: 06/21/17 08:20 Fluticasone Propionate (Flonase) 100 mcg NS DAILY TAO PRN Reason: Protocol Stop: 06/25/17 11:46 Furosemide (Lasix) 40 mg IVP BID TAO Stop: 06/24/17 21:01 Last Admin: 12/24/16 11:31 Dose: 40 mg Gabapentin (Neurontin) 600 mg PO TID TAO Stop: 06/20/17 02:01 Last Admin: 12/24/16 13:41 Dose: 600 mg Glucagon (Glucagen) 1 mg IM ONCE PRN PRN Reason: Hypoglycemia Stop: 06/21/17 08:20 Glucose (Gluctose) 15 gm PO ONCE PRN PRN Reason: Hypoglycemia Stop: 06/21/17 08:20 Glucose (Gluctose) 30 gm PO ONCE PRN PRN Reason: Hypoglycemia Stop: 06/21/17 08:20 Dextrose (Dextrose 5%) 1,000 mls @ 100 mls/hr IV CONT PRN PRN Reason: HYPOGLYCEMIA Stop: 06/21/17 08:20 Insulin Detemir (Levemir) 10 unit SQ HS TAO Stop: 06/23/17 21:01 Last Admin: 12/23/16 22:37 Dose: 10 unit Insulin Human Lispro (Humalog) 0 units SQ HS TAO PRN Reason: Protocol Stop: 06/19/17 21:01 Last Admin: 12/23/16 22:36 Dose: 4 units Insulin Human Lispro (Humalog) 0 units SQ TIDAC TAO PRN Reason: Protocol Stop: 06/19/17 07:31 Last Admin: 12/24/16 13:41 Dose: 8 units Levalbuterol HCl (Xopenex) 1.25 mg IH [id number] PRN PRN Reason: Wheezing Stop: 06/19/17 00:01 Last Admin: 12/24/16 07:54 Dose: 1.25 mg Metolazone (Zaroxolyn) 5 mg PO DAILY [facility] Stop: 06/25/17 09:01 Last Admin: 12/24/16 11:32 Dose: 5 mg Nitroglycerin (Nitroglycerin) 0.4 mg SL Q5MIN PRN PRN Reason: Chest Pain Stop: 06/23/17 13:51 Omeprazole (Prilosec) 20 mg PO 0630 TAO PRN Reason: Protocol Stop: 06/19/17 06:31 Last Admin: 12/22/16 05:53 Dose: 20 mg Rivaroxaban (Xarelto) 20 mg PO 1700 [facility] Stop: 06/24/17 17:01 Last Admin: 12/23/16 17:57 Dose: 20 mg - EKG Interpretation EKG results cardiology: other (24 hour tele AVG HR 86, SR) - VTE Documentation of Mechanical Device: Intermittent pneumatic compression device Consult Discharge Plan - Plan Instructions: Heart Failure (DC), Left Heart Catheterization (DC), Acute Respiratory Distress Syndrome (DC), Syncope (DC), Diabetes Mellitus Type 2 in Adults (DC), Chronic Obstructive Pulmonary Disease (DC), Pneumonia (DC) Additional Instructions: Please restart her home medications as directed. Please fill your prescriptions and start her home medications including aspirin , Plavix, atorvastatin, carvedilol, lisinopril, Lasix, potassium. Please use nitroglycerin under your tongue as needed for chest pain. As wear oxygen at all times. Please follow up with pulmonology and cardiology as scheduled. Please follow-up with your primary care physician in one to 2 weeks. Please return for any new or worsening symptoms. Referrals: [facility] [Provider Group] (1-2 weeks) Tano Valencia MD [Partnered Physician] - 01/06/17 2:30 pm (1-2 weeks) Tawanda Chi MD [Primary Care Provider] - 12/29/16 2:30 pm Prescriptions: Nitroglycerin 0.4 mg SL Q5MIN PRN #30 tab.subl PRN Reason: Chest Pain Aspirin 81 mg PO DAILY #30 tab.chew Atorvastatin [Lipitor] 20 mg PO HS #30 tablet Carvedilol [Coreg] 6.25 mg PO BIDWM #60 tablet Clopidogrel [Plavix] 75 mg PO DAILY #30 tablet Furosemide [Lasix] 40 mg PO DAILY #30 tablet Lisinopril [Zestril] 2.5 mg PO BID #60 tablet Potassium Chloride 10 meq PO DAILY #30 tab.er.prt
[2016-12-24] MEDS: *HR* Rivaroxaban 10 MG TABLET PO SCH (17:32)
[2016-12-24] MEDS: *HR* HYDROcodone/Acet 7.5/325 mg TABLET PO PRN (17:35)
[2016-12-24] MEDS: Fluticasone Propionate Nasal 50 MCG/SPRAY BOTTLE NS SCH (18:32)
[2016-12-24] MEDS: Insulin DETEMIR 100 UNIT/ML X5UNITS SQ SCH (22:41)
[2016-12-25] MEDS: *HR* HYDROcodone/Acet 7.5/325 mg TABLET PO PRN ×3 (04:58→18:21)
[2016-12-25] MEDS: Levalbuterol Neb 1.25 MG/3 ML IH PRN (05:08)
[2016-12-25] MEDS: Budesonide/Formoterol 160/4.5 MDI IH SCH ×2 (08:43→22:43)
--- NOTE | 2016-12-25 10:08 | Cardiology Progress Note ---
Date of Encounter: 12/25/16 Time of Encounter: 07:50 Assessment and Plan (1) Acute systolic CHF (congestive heart failure) Current Visit: Yes Status: Acute Acute systolic and right sided heart failure. Ischemic cardiomyoapthy, s/p PCI to the pLAD. TTE EF 40% moderately reduced systolic function, moderately dilated right ventricle with reduction in function. There is right ventricular septal flattening consistent with pressure overload. Mild pulmonic regurgitation, mild tricuspid regurgitation, and moderate pulmonary hypertension. BNP 1145. SOB multi-factoral in setting of CHF, pulmonary hypertension, and lung disease. Strict I&O and daily weights. Cumulative I/O negative - 15931 4ml. Low-sodium diet. 1500 ml fluid restriction. CHF education reviewed with patient. Continue BB--symptoms including fatigue and BP has improved with change to Toprol XL. Change to maintenance dose of lasix at discharge Close out-pt f/u for CHF--office staff will contact patient with appt. date and time on Tuesday. (2) Atrial fibrillation Current Visit: Yes Status: Acute Pt seen to have paroxysmal atrial flutter and atrial fibrillation during stay. No recurrent afib over last 12 hours. Continue Toprol XL. CHADS VASc= 4. I discussed coumadin therapy vs NOAC and patient is agreeable to anticoagulation. Xarelto started. He is on triple therapy with recent PCI. Monitor closely for bleeding. Reports blood when he blows his nose, but only smears of blood noted. H&H stable. Qualifiers: Atrial fibrillation type: paroxysmal Qualified Code(s): I48.0 - Paroxysmal atrial fibrillation (3) Coronary artery disease Current Visit: Yes Status: Acute SHEYLA to prox LAD on [facility] 12/22/16. Continue ASA, Plavix, Statin, BB. Uninterrupted DAPT therapy for at least 1 year uninterrupted--patient verbalized understanding. Qualifiers: Coronary Disease-Associated Artery/Lesion type: [place] artery [place] vs. transplanted heart: [place] heart Associated angina: without angina Qualified Code(s): I25.10 - Atherosclerotic heart disease of [place] coronary artery without angina pectoris (4) Ischemic cardiomyopathy Current Visit: Yes Status: Acute EF 40%. [facility] 12/22 SHEYLA to prox LAD. Continue BB. BP unable to tolerate addition of LES-I. Re-evaluate EF as outpt 3 months s/p revascularization. Discussion w patient/family: The assessment and plan as outlined above was discussed with the patient and/or family members who expressed understanding and agreement. All questions were answered. Thank you for involving us in the care of your patient. Please call with any questions. The patient was discussed and reviewed with Dr. Odom; Cardiology will sign-off , please call with questions. Subjective Principal diagnosis: Shortness of breath Interval history: Seen and examined. Patient states he feels much better today, says he is ready to be discharge. CHF and post PCI discharge instructions discussed. Plan communicated with Dr. Ponce. Objective Vital Signs, Last 4 Hours Temp Pulse Resp BP Pulse Ox 12/25/16 08:43 18 111/81 97 12/25/16 08:04 98.2 F 81 15 111/81 95 General: Conversant, No Apparent Distress HEENT: Atraumatic, Normocephaly, Mucus Membranes Moist Cardiac: Reg Rate and Rhythm, Normal S1 and S2 Neuro: Alert and responsive Abdomen: Soft Skin: No rashes noted on visualized skin Musculoskeletal: No Chest Wall Tenderness Extremities: Other (BLE edema to mid [place]--non pitting. ) Results 12/24/16 04:23 12/24/16 04:23 Active Medications Acetaminophen/Hydrocodone Bitart ([place] 7.5-325 Mg) 1 tab PO Q6HR PRN PRN Reason: Pain Stop: 06/19/17 01:40 Last Admin: 12/25/16 04:58 Dose: 1 tab Aspirin (Aspirin) 81 mg PO DAILY [facility] Stop: 06/24/17 09:01 Last Admin: 12/24/16 11:32 Dose: 81 mg Atorvastatin Calcium (Lipitor) 20 mg PO HS TAO Stop: 06/23/17 21:01 Last Admin: 12/24/16 22:41 Dose: 20 mg Budesonide/Formoterol Fumarate (Symbicort) 2 puff IH BIDR TAO PRN Reason: Protocol Stop: 06/21/17 22:01 Last Admin: 12/25/16 08:43 Dose: 2 puff Clopidogrel Bisulfate (Plavix) 75 mg PO DAILY TAO Stop: 06/24/17 09:01 Last Admin: 12/24/16 11:31 Dose: 75 mg Dextrose/Water (Dextrose 50% (Syg)) 25 ml IVP AD PRN PRN Reason: Hypoglycemia Stop: 06/21/17 08:20 Fluticasone Propionate (Flonase) 100 mcg NS DAILY TAO PRN Reason: Protocol Stop: 06/25/17 11:46 Last Admin: 12/24/16 18:32 Dose: 100 mcg Furosemide (Lasix) 40 mg IVP Q8H TAO Stop: 06/26/17 10:16 Gabapentin (Neurontin) 600 mg PO TID TAO Stop: 06/20/17 02:01 Last Admin: 12/24/16 22:41 Dose: 600 mg Dextrose (Dextrose 5%) 1,000 mls @ 100 mls/hr IV CONT PRN PRN Reason: HYPOGLYCEMIA Stop: 06/21/17 08:20 Insulin Detemir (Levemir) 10 unit SQ HS [facility] Stop: 06/23/17 21:01 Last Admin: 12/24/16 22:41 Dose: 10 unit Insulin Human Lispro (Humalog) 0 units SQ HS TAO PRN Reason: Protocol Stop: 06/19/17 21:01 Last Admin: 12/24/16 22:42 Dose: 6 units Insulin Human Lispro (Humalog) 0 units SQ TIDAC TAO PRN Reason: Protocol Stop: 06/19/17 07:31 Last Admin: 12/24/16 17:33 Dose: Not Given Levalbuterol HCl (Xopenex) 1.25 mg IH [id number] PRN PRN Reason: Wheezing Stop: 06/19/17 00:01 Last Admin: 12/25/16 05:08 Dose: 1.25 mg Metolazone (Zaroxolyn) 5 mg PO DAILY [facility] Stop: 06/25/17 09:01 Last Admin: 12/24/16 11:32 Dose: 5 mg Metoprolol Succinate (Toprol Xl) 12.5 mg PO DAILY [facility] Stop: 06/26/17 09:01 Nitroglycerin (Nitroglycerin) 0.4 mg SL Q5MIN PRN PRN Reason: Chest Pain Stop: 06/23/17 13:51 Omeprazole (Prilosec) 20 mg PO 0630 TAO PRN Reason: Protocol Stop: 06/19/17 06:31 Last Admin: 12/22/16 05:53 Dose: 20 mg Rivaroxaban (Xarelto) 20 mg PO 1700 [facility] Stop: 06/24/17 17:01 Last Admin: 12/24/16 17:32 Dose: 20 mg Intake & Output 12/22/16 12/23/16 12/24/16 12/25/16 23:59 23:59 23:59 23:59 Intake Total 650 / 650 800 / 800 1200 / 1200 0 / 0 Output Total 2525 / 2525 1675 / 1675 3975 / 3975 2150 / 2150 Balance -1875 / -1875 -875 / -875 -2775 / -2775 -2150 / -2150 Weight 79.7 kg 82.5 kg 79.7 kg - Imaging and Cardiology Echo: report reviewed Cardiac cath: report reviewed Other Results: Tele: avg HR=94. - EKG Interpretation EKG results cardiology: personally reviewed - VTE Documentation of Mechanical Device: Intermittent pneumatic compression device Consult Discharge Plan - Plan Instructions: Heart Failure (DC), Left Heart Catheterization (DC), Acute Respiratory Distress Syndrome (DC), Syncope (DC), Diabetes Mellitus Type 2 in Adults (DC), Chronic Obstructive Pulmonary Disease (DC), Pneumonia (DC) Additional Instructions: Please restart her home medications as directed. Please fill your prescriptions and start her home medications including aspirin , Plavix, atorvastatin, carvedilol, lisinopril, Lasix, potassium. Please use nitroglycerin under your tongue as needed for chest pain. As wear oxygen at all times. Please follow up with pulmonology and cardiology as scheduled. Please follow-up with your primary care physician in one to 2 weeks. Please return for any new or worsening symptoms. Referrals: [facility] [Provider Group] (1-2 weeks) Tano Valencia MD [Partnered Physician] - 01/06/17 2:30 pm (1-2 weeks) Tawanda Chi MD [Primary Care Provider] - 12/29/16 2:30 pm Prescriptions: Nitroglycerin 0.4 mg SL Q5MIN PRN #30 tab.subl PRN Reason: Chest Pain Aspirin 81 mg PO DAILY #30 tab.chew Atorvastatin [Lipitor] 20 mg PO HS #30 tablet Carvedilol [Coreg] 6.25 mg PO BIDWM #60 tablet Clopidogrel [Plavix] 75 mg PO DAILY #30 tablet Furosemide [Lasix] 40 mg PO DAILY #30 tablet Lisinopril [Zestril] 2.5 mg PO BID #60 tablet Potassium Chloride 10 meq PO DAILY #30 tab.er.prt
[2016-12-25] MEDS: Metoprolol XL (24 HR) Succ 25 MG TAB.ER.24H PO SCH (10:09)
[2016-12-25] MEDS: metOLazone 5 MG TABLET PO SCH (10:10)
[2016-12-25] MEDS: Aspirin 81 MG TAB.CHEW PO SCH (10:11)
[2016-12-25] MEDS: Fluticasone Propionate Nasal 50 MCG/SPRAY BOTTLE NS SCH (10:11)
[2016-12-25] MEDS: Furosemide 40 MG/4 ML VIAL IVP SCH ×3 (10:11→17:38)
[2016-12-25] MEDS: Gabapentin 300 MG CAPSULE PO SCH ×3 (10:11→20:53)
[2016-12-25] MEDS: Insulin LISPRO 300 UNITS/3 ML VIAL SQ SCH ×4 (10:13→20:54)
[2016-12-25] MEDS: *HR* Rivaroxaban 10 MG TABLET PO SCH (16:43)
--- NOTE | 2016-12-25 16:53 | Internal Med Progress Note ---
Date of Encounter: 12/25/16 Time of Encounter: 08:00 - Assessment and plan (1) Acute on chronic respiratory failure with hypoxemia Current Visit: Yes Status: Acute Assessment and plan: Continue supplemental oxygen support. (2) Acute systolic CHF (congestive heart failure) Current Visit: Yes Status: Acute Assessment and plan: Resulting from ischemic cardiomyopathy. Continue diuresis, beta humberto, bimal and supportive care. (3) Tobacco abuse Current Visit: Yes Status: Chronic Assessment and plan: Cessation counselling. (4) Diabetes mellitus type 2 in nonobese Current Visit: Yes Status: Acute Assessment and plan: Continue accuchecks and coverage. (5) Coronary artery disease Current Visit: Yes Status: Acute Assessment and plan: Patient is status post left heart catheterization which revealed 80% stenosis in the proximal LAD. Patient had one drug-eluting stent placed. Continue medical management. Qualifiers: Coronary Disease-Associated Artery/Lesion type: [place] artery [place] vs. transplanted heart: [place] heart Associated angina: without angina Qualified Code(s): I25.10 - Atherosclerotic heart disease of [place] coronary artery without angina pectoris (6) Atrial fibrillation Current Visit: Yes Status: Acute Assessment and plan: On anticoagulation. Monitor for bleeding. Qualifiers: Atrial fibrillation type: paroxysmal Qualified Code(s): I48.0 - Paroxysmal atrial fibrillation - Subjective Interval history: Mr. Ruiz is currently admitted for acute hypoxic respiratory failure and pulmonary hypertension. He remains moderate risk due to potential for worsening respiratory status. Mr. Ruiz is feeling somewhat better today. His legs are still quite swollen. He is less dyspneic moving around. No chest pain. No cough. - Constitutional Vitals: Temp Pulse Resp BP Pulse Ox 97.8 F 103 15 128/90 95 12/25/16 16:31 12/25/16 16:31 12/25/16 16:31 12/25/16 16:31 12/25/16 16:31 General appearance: Present: A&O X 3, answers questions appropriately - Head Head exam: Present: normocephalic - Eye Eye exam: Present: conjuntiva pink - ENT ENT exam: Present: mucous membranes moist - Respiratory Respiratory exam: Present: decreased breath sounds, CTAB. Absent: rhonchi, wheezes - Cardiovascular Cardiovascular exam: Present: RRR. Absent: tachycardia - GI/Abdominal GI/Abdominal exam: Present: soft. Absent: tenderness - Extremities Exam Extremities exam: Present: pedal edema, warm - Neurological Exam Neurological exam: Present: alert, oriented X3 - Psychiatric Psychiatric exam: Present: normal affect, normal mood - Skin Skin exam: Present: dry, warm. Absent: rash Internal Medicine: Result - Labs CBC & Chem 7: 12/24/16 04:23 12/24/16 04:23 - ABG Interpretation ABG results: PT/INR, D-dimer PT 14.0 Seconds (9.4-12.1) H 12/21/16 16:01 - VTE Documentation of Mechanical Device: Intermittent pneumatic compression device Consult Discharge Plan - Plan Instructions: Heart Failure (DC), Left Heart Catheterization (DC), Acute Respiratory Distress Syndrome (DC), Syncope (DC), Diabetes Mellitus Type 2 in Adults (DC), Chronic Obstructive Pulmonary Disease (DC), Pneumonia (DC) Additional Instructions: Please restart her home medications as directed. Please fill your prescriptions and start her home medications including aspirin , Plavix, atorvastatin, carvedilol, lisinopril, Lasix, potassium. Please use nitroglycerin under your tongue as needed for chest pain. As wear oxygen at all times. Please follow up with pulmonology and cardiology as scheduled. Please follow-up with your primary care physician in one to 2 weeks. Please return for any new or worsening symptoms. Referrals: [facility] [Provider Group] (1-2 weeks) Tano Valencia MD [Partnered Physician] - 01/06/17 2:30 pm (1-2 weeks) Tawanda Chi MD [Primary Care Provider] - 12/29/16 2:30 pm Prescriptions: Nitroglycerin 0.4 mg SL Q5MIN PRN #30 tab.subl PRN Reason: Chest Pain Aspirin 81 mg PO DAILY #30 tab.chew Atorvastatin [Lipitor] 20 mg PO HS #30 tablet Carvedilol [Coreg] 6.25 mg PO BIDWM #60 tablet Clopidogrel [Plavix] 75 mg PO DAILY #30 tablet Furosemide [Lasix] 40 mg PO DAILY #30 tablet Lisinopril [Zestril] 2.5 mg PO BID #60 tablet Potassium Chloride 10 meq PO DAILY #30 tab.er.prt
[2016-12-25] MEDS: Insulin DETEMIR 100 UNIT/ML X5UNITS SQ SCH (20:53)
[2016-12-26] MEDS: Furosemide 40 MG/4 ML VIAL IVP SCH ×4 (03:07→23:23)
[2016-12-26] MEDS: *HR* HYDROcodone/Acet 7.5/325 mg TABLET PO PRN ×3 (03:07→16:11)
[2016-12-26 04:01] LABS: Hematocrit 40.7 % (37.5-50.1); Hemoglobin 13.3 g/dL (12.9-16.9); Mean Corpuscular HGB Conc 32.7 g/dL (31.6-35.5); Mean Corpuscular Hemoglobin 31.1 pg (28.0-33.3); Mean Corpuscular Volume 95.3 fL (83.0-100.0); Mean Platelet Volume 12.3 fL (9.4-12.4); Platelet Count 141 K/mcL (140-400); Red Blood Count 4.27 M/mcL (4.19-5.50); Red Cell Distribution Width 12.8 % (11.5-14.5)
[2016-12-26 04:18] LABS: Alanine Aminotransferase 23 Units/L (0-55); Albumin 3.4 g/dL (3.5-5.0); Albumin/Globulin Ratio 0.9 (1.1-2.2); Alkaline Phosphatase 73 Units/L (38-126); Aspartate Amino Transferase 18 Units/L (5-34); BUN/Creatinine Ratio 37 (6-26); Bilirubin,Total 1.2 mg/dL (0.2-1.2); Blood Urea Nitrogen 32 mg/dL (8-26); Calcium 10.1 mg/dL (8.6-10.8); Chloride 83 mEq/L (98-109); Globulin 3.6 g/dL (2.4-3.5); Glucose 264 mg/dL (70-99); Osmolality,Calculated 296 (280-300); Potassium 3.7 mEq/L (3.5-4.5); Sodium 135 mEq/L (136-145); eGFR For African Americans > 60 (> 60); eGFR For Non-African Americans > 60 (> 60)
[2016-12-26 04:22] LABS: Carbon Dioxide 42 mEq/L (19-29)
[2016-12-26] MEDS: Levalbuterol Neb 1.25 MG/3 ML IH PRN (04:48)
[2016-12-26 08:13] LABS: VBG HCO3 54.2 mEq/L (21-27); VBG PH 7.45 pH Units (7.32-7.42)
[2016-12-26] MEDS: metOLazone 5 MG TABLET PO SCH (09:02)
[2016-12-26] MEDS: Aspirin 81 MG TAB.CHEW PO SCH (09:02)
[2016-12-26] MEDS: Gabapentin 300 MG CAPSULE PO SCH ×3 (09:02→22:50)
[2016-12-26] MEDS: Metoprolol XL (24 HR) Succ 25 MG TAB.ER.24H PO SCH (09:02)
[2016-12-26] MEDS: Fluticasone Propionate Nasal 50 MCG/SPRAY BOTTLE NS SCH (09:03)
[2016-12-26] MEDS: Insulin LISPRO 300 UNITS/3 ML VIAL SQ SCH ×4 (09:03→22:51)
[2016-12-26] MEDS ORDERED: Magnesium Sulfate 2 GM in D5% in Water 100 ML IV ONE ×2 (09:25→11:49)
[2016-12-26] MEDS: acetaZOLAMIDE 250 MG TABLET PO SCH (10:09)
[2016-12-26] MEDS: Budesonide/Formoterol 160/4.5 MDI IH SCH ×2 (10:33→22:22)
[2016-12-26] MEDS: Levofloxacin 750 MG/150 ML 750 MG/150 ML BAG IVPB SCH (12:32)
--- NOTE | 2016-12-26 15:05 | Internal Med Progress Note ---
Date of Encounter: 12/26/16 Time of Encounter: 12:30 - Assessment and plan (1) Hypomagnesemia Current Visit: Yes Status: Acute Assessment and plan: Replace and recheck tomorrow (2) Leukocytosis Current Visit: Yes Status: Acute Assessment and plan: Most likely due to steroid use but he has had purulent sputum today. Cultures ordered and Levaquin started. Qualifiers: Leukocytosis type: leukemoid reaction Qualified Code(s): D72.823 - Leukemoid reaction (3) Acute on chronic respiratory failure with hypoxemia Current Visit: Yes Status: Acute Assessment and plan: Continue supplemental oxygen support. He appears to be at a baseline for now. (4) Acute systolic CHF (congestive heart failure) Current Visit: Yes Status: Acute Assessment and plan: Resulting from ischemic cardiomyopathy. Continue diuresis, beta humberto, bimal and supportive care. CO2 has elevated so will decrease Lasix and add Diamox. (5) Tobacco abuse Current Visit: Yes Status: Chronic Assessment and plan: Cessation counselling. (6) Diabetes mellitus type 2 in nonobese Current Visit: Yes Status: Acute Assessment and plan: Continue accuchecks and coverage. (7) Coronary artery disease Current Visit: Yes Status: Acute Assessment and plan: Patient is status post left heart catheterization which revealed 80% stenosis in the proximal LAD. Patient had one drug-eluting stent placed. Continue medical management. Qualifiers: Coronary Disease-Associated Artery/Lesion type: [place] artery [place] vs. transplanted heart: [place] heart Associated angina: without angina Qualified Code(s): I25.10 - Atherosclerotic heart disease of [place] coronary artery without angina pectoris (8) Atrial fibrillation Current Visit: Yes Status: Acute Assessment and plan: On anticoagulation. Monitor for bleeding. Qualifiers: Atrial fibrillation type: paroxysmal Qualified Code(s): I48.0 - Paroxysmal atrial fibrillation - Subjective Interval history: Mr. Ruiz is currently admitted for acute hypoxic respiratory failure and pulmonary hypertension. He remains moderate risk due to potential for worsening respiratory status. Mr. Ruiz had a lot of cramping today. Seems to be somewhat better after receiving magnesium infusion. Also having cramping in his bilateral rib area. No CP or worsening dyspnea. No fever or chills. No diarrhea. No dysuria. No worsening cough or sputum production. - Constitutional Vitals: Temp Pulse Resp BP Pulse Ox 98.0 F 96 15 103/89 95 12/26/16 08:01 12/26/16 08:01 12/26/16 08:01 12/26/16 08:01 12/26/16 08:01 General appearance: Present: A&O X 3, answers questions appropriately - Head Head exam: Present: normocephalic - Eye Eye exam: Present: conjuntiva pink - ENT ENT exam: Present: mucous membranes dry - Respiratory Respiratory exam: Present: decreased breath sounds, rales - Cardiovascular Cardiovascular exam: Present: RRR. Absent: tachycardia - GI/Abdominal GI/Abdominal exam: Present: soft. Absent: tenderness - Extremities Exam Extremities exam: Present: pedal edema, warm - Neurological Exam Neurological exam: Present: alert, oriented X3 - Psychiatric Psychiatric exam: Present: normal affect, normal mood - Skin Skin exam: Present: warm. Absent: rash Internal Medicine: Result - Labs CBC & Chem 7: 12/26/16 03:48 12/26/16 03:48 Labs: Short CBC 12/26/16 Range/Units 03:48 WBC 20.0 H (4.3-11.1) K/mcL Hgb 13.3 (12.9-16.9) g/dL Hct 40.7 (37.5-50.1) % Plt Count 141 (140-400) K/mcL BMP 12/26/16 03:48 Sodium 135 L D Potassium 3.7 Chloride 83 L Carbon Dioxide 42 H* BUN 32 H D Creatinine 0.86 Glucose 264 H Calcium 10.1 D Liver Function 12/26/16 Range/Units 03:48 Total Bilirubin 1.2 (0.2-1.2) mg/dL AST 18 (5-34) Units/L ALT 23 (0-55) Units/L Alkaline Phosphatase 73 (38-126) Units/L Albumin 3.4 L (3.5-5.0) g/dL - ABG Interpretation ABG results: PT/INR, D-dimer PT 14.0 Seconds (9.4-12.1) H 12/21/16 16:01 - VTE Documentation of Mechanical Device: Intermittent pneumatic compression device Consult Discharge Plan - Plan Instructions: Heart Failure (DC), Left Heart Catheterization (DC), Acute Respiratory Distress Syndrome (DC), Syncope (DC), Diabetes Mellitus Type 2 in Adults (DC), Chronic Obstructive Pulmonary Disease (DC), Pneumonia (DC) Additional Instructions: Please restart her home medications as directed. Please fill your prescriptions and start her home medications including aspirin , Plavix, atorvastatin, carvedilol, lisinopril, Lasix, potassium. Please use nitroglycerin under your tongue as needed for chest pain. As wear oxygen at all times. Please follow up with pulmonology and cardiology as scheduled. Please follow-up with your primary care physician in one to 2 weeks. Please return for any new or worsening symptoms. Referrals: [facility] [Provider Group] (1-2 weeks) Tano Valencia MD [Partnered Physician] - 01/06/17 2:30 pm (1-2 weeks) Tawanda Chi MD [Primary Care Provider] - 12/29/16 2:30 pm Prescriptions: Nitroglycerin 0.4 mg SL Q5MIN PRN #30 tab.subl PRN Reason: Chest Pain Aspirin 81 mg PO DAILY #30 tab.chew Atorvastatin [Lipitor] 20 mg PO HS #30 tablet Carvedilol [Coreg] 6.25 mg PO BIDWM #60 tablet Clopidogrel [Plavix] 75 mg PO DAILY #30 tablet Furosemide [Lasix] 40 mg PO DAILY #30 tablet Lisinopril [Zestril] 2.5 mg PO BID #60 tablet Potassium Chloride 10 meq PO DAILY #30 tab.er.prt
[2016-12-26] MEDS: *HR* Rivaroxaban 10 MG TABLET PO SCH (16:11)
[2016-12-26] MEDS: Ipratropium/Albuterol Neb 3 ML IH SCH ×2 (16:58→22:22)
[2016-12-26] MEDS: Insulin DETEMIR 100 UNIT/ML X5UNITS SQ SCH (22:50)
[2016-12-27] MEDS: Ipratropium/Albuterol Neb 3 ML IH SCH ×4 (04:09→22:29)
[2016-12-27 04:47] LABS: Basophils # 0.1 K/mcL (0.0-0.2); Basophils % 0.3 %; Eosinophils # 0.1 K/mcL (0.0-0.6); Eosinophils % 0.4 %; Hematocrit 39.3 % (37.5-50.1); Hemoglobin 12.8 g/dL (12.9-16.9); Immature Granulocytes % 2.5 % (0-4); Lymphocytes # 2.2 K/mcL (0.6-4.6); Lymphocytes % 11.5 %; Mean Corpuscular HGB Conc 32.6 g/dL (31.6-35.5); Mean Corpuscular Hemoglobin 31.4 pg (28.0-33.3); Mean Corpuscular Volume 96.3 fL (83.0-100.0); Mean Platelet Volume 12.9 fL (9.4-12.4); Monocytes # 1.6 K/mcL (0.0-1.3); Monocytes % 8.1 %; Neutrophils # 15.1 K/mcL (1.6-8.9); Platelet Count 153 K/mcL (140-400); Red Blood Count 4.08 M/mcL (4.19-5.50); Red Cell Distribution Width 12.9 % (11.5-14.5); Segmented Neutrophils % 77.2 %
[2016-12-27 05:16] LABS: Albumin 3.4 g/dL (3.5-5.0); Albumin/Globulin Ratio 0.9 (1.1-2.2); Calcium 10.1 mg/dL (8.6-10.8); Globulin 3.7 g/dL (2.4-3.5); Magnesium 1.7 mg/dL (1.6-2.6); Potassium 4.1 mEq/L (3.5-4.5); Total Protein 7.1 g/dL (6.0-8.3)
[2016-12-27] MEDS: Aspirin 81 MG TAB.CHEW PO SCH (07:59)
[2016-12-27] MEDS: Metoprolol XL (24 HR) Succ 25 MG TAB.ER.24H PO SCH (07:59)
[2016-12-27] MEDS: metOLazone 5 MG TABLET PO SCH (07:59)
[2016-12-27] MEDS: acetaZOLAMIDE 250 MG TABLET PO SCH (07:59)
[2016-12-27] MEDS: Gabapentin 300 MG CAPSULE PO SCH ×3 (07:59→20:51)
[2016-12-27] MEDS: Levofloxacin 750 MG/150 ML 750 MG/150 ML BAG IVPB SCH (08:00)
[2016-12-27] MEDS: Insulin LISPRO 300 UNITS/3 ML VIAL SQ SCH ×5 (08:00→20:53)
[2016-12-27] MEDS: Furosemide 40 MG/4 ML VIAL IVP SCH (08:00)
[2016-12-27] MEDS: Fluticasone Propionate Nasal 50 MCG/SPRAY BOTTLE NS SCH (08:02)
[2016-12-27] MEDS: *HR* HYDROcodone/Acet 7.5/325 mg TABLET PO PRN ×2 (08:05→18:20)
[2016-12-27] MEDS ORDERED: 0.9 % Sodium Chloride 1,000 ML IVC SCH (10:15)
[2016-12-27] MEDS: Budesonide/Formoterol 160/4.5 MDI IH SCH ×2 (10:21→22:29)
--- NOTE | 2016-12-27 14:30 | Internal Med Progress Note ---
Date of Encounter: 12/27/16 Time of Encounter: 10:00 - Assessment and plan (1) Acute kidney injury Current Visit: Yes Status: Acute Assessment and plan: Prerenal due to diuresis. 1 liter of NS ordered for today. Hold diuresis today. Recheck labs tomorrow. (2) Hypomagnesemia Current Visit: Yes Status: Acute Assessment and plan: Replaced yesterday. Normal levels today. Recheck tomorrow. (3) Leukocytosis Current Visit: Yes Status: Acute Assessment and plan: Persists today. Cx pending. Placed on empiric Levaquin to cover lungs yesterday. Qualifiers: Leukocytosis type: leukemoid reaction Qualified Code(s): D72.823 - Leukemoid reaction (4) Acute on chronic respiratory failure with hypoxemia Current Visit: Yes Status: Acute Assessment and plan: Continue supplemental oxygen support. He appears to be at a baseline for now. (5) Acute systolic CHF (congestive heart failure) Current Visit: Yes Status: Acute Assessment and plan: Due to ischemic cardiomyopathy. Diuretics held today due to acute kidney injury. Anticipate resuming tomorrow. (6) Tobacco abuse Current Visit: Yes Status: Chronic Assessment and plan: Cessation counselling. (7) Diabetes mellitus type 2 in nonobese Current Visit: Yes Status: Acute Assessment and plan: Continue accuchecks and coverage. (8) Coronary artery disease Current Visit: Yes Status: Acute Assessment and plan: Patient is status post left heart catheterization which revealed 80% stenosis in the proximal LAD. Patient had one drug-eluting stent placed. Continue medical management. Qualifiers: Coronary Disease-Associated Artery/Lesion type: [place] artery [place] vs. transplanted heart: [place] heart Associated angina: without angina Qualified Code(s): I25.10 - Atherosclerotic heart disease of [place] coronary artery without angina pectoris (9) Atrial fibrillation Current Visit: Yes Status: Acute Assessment and plan: On anticoagulation. Monitor for bleeding. Qualifiers: Atrial fibrillation type: paroxysmal Qualified Code(s): I48.0 - Paroxysmal atrial fibrillation - Subjective Interval history: Mr. Ruiz is currently admitted for acute hypoxic respiratory failure and pulmonary hypertension. He remains moderate risk due to potential for worsening respiratory status. Mr. Ruiz has very little edema today but his renal function has worsened. Denies CP or worsened dyspnea. No cough. Feels tired. No GI symptoms. WBC remains elevated. Cx done yesterday and Levaquin started due to purulent sputum. Blood sugar was high again this morning. - Constitutional Vitals: Temp Pulse Resp BP Pulse Ox 97.9 F 108 17 113/84 97 12/27/16 11:58 12/27/16 11:58 12/27/16 11:58 12/27/16 11:58 12/27/16 10:16 General appearance: Present: A&O X 3, answers questions appropriately - Head Head exam: Present: normocephalic - Eye Eye exam: Present: conjuntiva pink - ENT ENT exam: Present: mucous membranes dry - Respiratory Respiratory exam: Present: decreased breath sounds, rales - Cardiovascular Cardiovascular exam: Present: RRR. Absent: tachycardia - GI/Abdominal GI/Abdominal exam: Present: soft. Absent: mass, tenderness - Extremities Exam Extremities exam: Present: warm Additional comments: Minimal edema of lower extremities today. - Neurological Exam Neurological exam: Present: alert, oriented X3 - Psychiatric Psychiatric exam: Present: normal affect, normal mood - Skin Skin exam: Present: warm. Absent: rash Internal Medicine: Result - Labs CBC & Chem 7: 12/27/16 04:24 12/27/16 04:24 Labs: Short CBC 12/27/16 Range/Units 04:24 WBC 19.5 H (4.3-11.1) K/mcL Hgb 12.8 L (12.9-16.9) g/dL Hct 39.3 (37.5-50.1) % Plt Count 153 (140-400) K/mcL Neutrophils # 15.1 H (1.6-8.9) K/mcL BMP 12/27/16 04:24 Sodium 131 L Potassium 4.1 Chloride 84 L Carbon Dioxide 36 H BUN 43 H D Creatinine 1.47 H D Glucose 487 H Calcium 10.1 Liver Function 12/27/16 Range/Units 04:24 Total Bilirubin 1.0 (0.2-1.2) mg/dL AST 17 (5-34) Units/L ALT 22 (0-55) Units/L Alkaline Phosphatase 81 (38-126) Units/L Albumin 3.4 L (3.5-5.0) g/dL - ABG Interpretation ABG results: PT/INR, D-dimer PT 14.0 Seconds (9.4-12.1) H 12/21/16 16:01 - Impressions Impressions Chest X-Ray 12/24/16 09:09 IMPRESSION: No acute cardiopulmonary process. Previously identified right pleural effusion has resolved. D/ / 12/24/2016 12:35:18 Timothy Vu MD / gustavo Interpreting Provider: Timothy Vu MD - VTE Documentation of Mechanical Device: Intermittent pneumatic compression device Consult Discharge Plan - Plan Instructions: Heart Failure (DC), Left Heart Catheterization (DC), Acute Respiratory Distress Syndrome (DC), Syncope (DC), Diabetes Mellitus Type 2 in Adults (DC), Chronic Obstructive Pulmonary Disease (DC), Pneumonia (DC) Additional Instructions: Please restart her home medications as directed. Please fill your prescriptions and start her home medications including aspirin , Plavix, atorvastatin, carvedilol, lisinopril, Lasix, potassium. Please use nitroglycerin under your tongue as needed for chest pain. As wear oxygen at all times. Please follow up with pulmonology and cardiology as scheduled. Please follow-up with your primary care physician in one to 2 weeks. Please return for any new or worsening symptoms. Referrals: [facility] [Provider Group] (1-2 weeks) Tano Valencia MD [Partnered Physician] - 01/06/17 2:30 pm (1-2 weeks) Tawanda Chi MD [Primary Care Provider] - 12/29/16 2:30 pm Prescriptions: Nitroglycerin 0.4 mg SL Q5MIN PRN #30 tab.subl PRN Reason: Chest Pain Aspirin 81 mg PO DAILY #30 tab.chew Atorvastatin [Lipitor] 20 mg PO HS #30 tablet Carvedilol [Coreg] 6.25 mg PO BIDWM #60 tablet Clopidogrel [Plavix] 75 mg PO DAILY #30 tablet Furosemide [Lasix] 40 mg PO DAILY #30 tablet Lisinopril [Zestril] 2.5 mg PO BID #60 tablet Potassium Chloride 10 meq PO DAILY #30 tab.er.prt
[2016-12-27] MEDS: *HR* Rivaroxaban 10 MG TABLET PO SCH (18:17)
[2016-12-27] MEDS: Insulin DETEMIR 100 UNIT/ML X5UNITS SQ SCH (20:51)
[2016-12-28] MEDS: Ipratropium/Albuterol Neb 3 ML IH SCH ×3 (04:03→15:54)
[2016-12-28 04:07] LABS: Hematocrit 34.5 % (37.5-50.1); Immature Platelets 14.9 % (1.1-6.1); Mean Corpuscular HGB Conc 32.5 g/dL (31.6-35.5); Mean Corpuscular Hemoglobin 32.1 pg (28.0-33.3); Mean Corpuscular Volume 98.9 fL (83.0-100.0); Mean Platelet Volume 12.3 fL (9.4-12.4); Red Blood Count 3.49 M/mcL (4.19-5.50); Red Cell Distribution Width 12.8 % (11.5-14.5)
[2016-12-28 04:21] LABS: Alanine Aminotransferase 24 Units/L (0-55); Albumin/Globulin Ratio 0.9 (1.1-2.2); Alkaline Phosphatase 76 Units/L (38-126); Aspartate Amino Transferase 20 Units/L (5-34); BUN/Creatinine Ratio 36 (6-26); Bilirubin,Total 0.6 mg/dL (0.2-1.2); Blood Urea Nitrogen 35 mg/dL (8-26); Calcium 9.3 mg/dL (8.6-10.8); Carbon Dioxide 30 mEq/L (19-29); Chloride 98 mEq/L (98-109); Globulin 3.5 g/dL (2.4-3.5); Glucose 195 mg/dL (70-99); Magnesium 1.2 mg/dL (1.6-2.6); Osmolality,Calculated 295 (280-300); Potassium 3.8 mEq/L (3.5-4.5); Sodium 136 mEq/L (136-145); Total Protein 6.5 g/dL (6.0-8.3); eGFR For African Americans > 60 (> 60); eGFR For Non-African Americans > 60 (> 60)
[2016-12-28 04:26] LABS: Hemoglobin 11.2 g/dL (12.9-16.9)
[2016-12-28] MEDS ORDERED: Magnesium Sulfate 2 GM in D5% in Water 100 ML IV ONE (07:58)
[2016-12-28] MEDS: *HR* HYDROcodone/Acet 7.5/325 mg TABLET PO PRN (08:11)
[2016-12-28] MEDS: Gabapentin 300 MG CAPSULE PO SCH ×2 (08:11→16:05)
[2016-12-28] MEDS: Metoprolol XL (24 HR) Succ 25 MG TAB.ER.24H PO SCH (08:12)
[2016-12-28] MEDS: Aspirin 81 MG TAB.CHEW PO SCH (08:12)
[2016-12-28] MEDS: Fluticasone Propionate Nasal 50 MCG/SPRAY BOTTLE NS SCH (08:13)
[2016-12-28] MEDS: Insulin LISPRO 300 UNITS/3 ML VIAL SQ SCH ×3 (08:15→16:06)
[2016-12-28] MEDS: Levofloxacin 750 MG/150 ML 750 MG/150 ML BAG IVPB SCH (08:16)
[2016-12-28] MEDS ORDERED: Furosemide 40 MG TABLET PO SCH (09:00)
[2016-12-28] MEDS: Budesonide/Formoterol 160/4.5 MDI IH SCH (10:28)
[2016-12-28 11:26] VITALS: BP 104/79
[2016-12-28 11:45] LABS: Bilirubin,Urine Negative (Negative); Blood,Urine Negative (Negative); Clarity,Urine Clear (Clear); Color,Urine Yellow (Yellow); Glucose,Urine (UA) Normal (Normal); Ketones,Urine Negative (Negative); Leukocyte Esterase,Urine Negative (Negative); Nitrite,Urine Negative (Negative); PH,Urine 6.5 pH Units (5.0-8.0); Protein,Urine Negative (Neg-Trace); Urobilinogen,Urine Normal (Normal)
--- NOTE | 2016-12-28 13:09 | Infectious Disease Consult ---
Date of Encounter: 12/28/16 Time of Encounter: 13:04 Assessment and Plan (1) Leukocytosis Status: Acute Assessment and plan: WBC initially normal on admission. Patient was started on IV steroids on admission for COPD exacerbation. Discontinued on 12/22/16. WBC continues to increase, but differential normal. No symptoms to indicate new infection: afebrile, no complaints, overall status is improved. Leukocytosis likely secondary to steroid use. Recommend re-checking labs in 1 week to ensure WBC is trending down. Qualifiers: Leukocytosis type: unspecified Qualified Code(s): D72.829 - Elevated white blood cell count, unspecified (2) COPD exacerbation Status: Acute Assessment and plan: Improved. Pulmonology consulted and following. Continue supportive care as outline by the pulmonology team (O2, bronchodilators , etc.). Continue Levaquin 750mg IV daily (day 3). Can switch to PO when ready for discharge. Complete a 5- 7 day course. Monitor renal function and dose-adjust antibiotics. (3) Acute kidney injury Status: Acute Assessment and plan: Likely secondary to excessive diuretic use. Improved with holding diuretics and IV hydration. Management per the primary team. (4) Acute on chronic respiratory failure with hypoxemia Status: Acute (5) Syncope Status: Resolved Qualifiers: Syncope type: unspecified Qualified Code(s): R55 - Syncope and collapse (6) Acute systolic CHF (congestive heart failure) Status: Acute (7) Ascites Status: Acute Qualifiers: Ascites type: other type Qualified Code(s): R18.8 - Other ascites (8) Atrial fibrillation Status: Acute Qualifiers: Atrial fibrillation type: paroxysmal Qualified Code(s): I48.0 - Paroxysmal atrial fibrillation (9) Diabetes mellitus type 2 in nonobese Status: Chronic (10) Interstitial lung disease Status: Chronic (11) Ischemic cardiomyopathy Status: Chronic (12) Pulmonary hypertension Status: Chronic Infectious Disease HPI - Data of Consult Patient: new to practice Consult date: 12/28/16 Requesting Physician: Janusz Ponce DO Primary Care Provider: Tawanda Chi MD - Consult Narrative Reason for consult: Leukocytosis History of present illness: Mr. Ruiz is a 56 year old male with a past medical history of interstitial lung disease, COPD, diabetes, and hypertension. The patient was managed the hospital December 17, 2016 for shortness of breath, syncope, and ascites. We're consulted December 28, 2016 for further evaluation and treatment recommendations regarding persistent leukocytosis. The patient is a 48-year-old male past medical history as stated above. The patient was initially admitted to the hospital for ascites, shortness of breath , and syncope. Since being admitted, the patient's had an extensive cardiac workup including a transthoracic echocardiogram which showed an EF of 40% and moderate pulmonary hypertension. He also underwent a left heart catheter and had a drug-eluting stent placed in the LAD. Pulmonology has been consulted to make recommendations regarding the patient's interstitial lung disease. He was subsequent started on IV steroids for COPD exacerbation upon admission. Since then, his white blood cell count has been elevated. His differential has been essentially normal. He has been afebrile. He continues to have some tachycardia. Chest x-ray completed on the was negative. Blood cultures obtained on December 26 are negative growth to date. The patient received a 5 day course of IV Levaquin that was started on the day of admission. He was subsequently placed on IV Levaquin 2 days ago by the primary team due to the increased white blood cell count and the patient's report of a cough productive of some sputum. A urine cultures been ordered but has not been collected. We've been asked to evaluate and make further recommendations. My exam today, the patient states that overall he feels well. He reports that his status is much improved since he was admitted. He currently denies any headache, dizziness, or weakness. He denies any chest pain and states the shortness of breath has improved. He states that prior to admission he was constantly short of breath, worse with exertion. He also reports a chronic, moist, sometimes productive cough. He states this appears to be back at baseline. He denies any fevers or chills or rigors. He denies any congestion, earache, or sore throat. He denies any nausea, vomiting, diarrhea, constipation. States appetite is good and denies any weight loss. He denies any urinary complaints. He denies pain in any of his extremities. He denies oral thrush or new skin lesions. The patient lives at home with his in [place], [place]. He does have an indoor dog. He denies recent travel. CC: Janusz Ponce, DO Past Med Surg Social Fam HX - Past Medical History Attestation: Yes The following information was validated with the patient. Source: patient, old records reviewed, nursing notes reviewed Medical history: COPD, diabetes, hyperlipidemia, hypertension, other Psychiatric history: no psych history - Past Surgical History Surgical History: appendectomy - Social History Smoking Status: Current some day smoker Packs per day: 1/4 Smokeless Tobacco Status: No Alcohol use: occasionally (3-4 beers two days a week), heavy (In the past) Drug use: none Occupational status: previously employed Current living situation: Home, With Family Activity Level: Independent ambulation Recent Out of Country Travel Within the Last 8 Weeks: No Exposure or Possible Exposure to Illness During Travel: No Infectious Disease-CN:Meds Fluticasone/Vilanterol [Breo Ellipta 200-25 Mcg INH] 1 each IH DAILY 12/11/16 [ History] Gabapentin [Neurontin] 600 mg PO TID 12/11/16 [History] Gemfibrozil [Lopid] 600 mg PO BIDWM 12/11/16 [History] GlipiZIDE [Glipizide] 10 mg PO BID 12/11/16 [History] Indomethacin 50 mg PO TID PRN 12/11/16 [History] Metformin HCl [Glucophage] 1,000 mg PO BID 12/11/16 [History] Omeprazole [PriLOSEC] 20 mg PO DAILY 12/11/16 [History] Umeclidinium [place] [Incruse Ellipta] 62.5 mcg IH DAILY 12/11/16 [History] Albuterol Neb [Proventil Neb] 2.5 mg IH 3-4XD PRN 12/17/16 [History] Albuterol Sulfate [Albuterol Inhaler] 2 puff IH Q4H PRN 12/17/16 [History] HYDROcodone/Acet 7.5/325 mg [[place] 7.5-325 mg] 1 tab PO Q6H PRN 12/17/16 [ History] Montelukast [Singulair] 10 mg PO DAILY 12/17/16 [History] Aspirin 81 mg PO DAILY #30 tab.chew 12/23/16 [Rx] Atorvastatin [Lipitor] 20 mg PO HS #30 tablet 12/23/16 [Rx] Carvedilol [Coreg] 6.25 mg PO BIDWM #60 tablet 12/23/16 [Rx] Clopidogrel [Plavix] 75 mg PO DAILY #30 tablet 12/23/16 [Rx] Furosemide [Lasix] 40 mg PO DAILY #30 tablet 12/23/16 [Rx] Lisinopril [Zestril] 2.5 mg PO BID #60 tablet 12/23/16 [Rx] Nitroglycerin 0.4 mg SL Q5MIN PRN #30 tab.subl 12/23/16 [Rx] Potassium Chloride 10 meq PO DAILY #30 tab.er.prt 12/23/16 [Rx] Allergies No Known Allergies Allergy (Verified 12/11/16 21:24) All systems: reviewed and no additional remarkable complaints except as stated Exam - Constitutional Vitals: Temp Pulse Resp BP Pulse Ox 97.6 F 99 15 104/79 97 12/28/16 11:25 12/28/16 11:25 12/28/16 11:25 12/28/16 11:25 12/28/16 11:25 General appearance: average body habitus, cooperative, no acute distress - Head Head exam: Present: atraumatic, normal inspection, normocephalic - Eye Eye exam: Present: EOMI, normal appearance, PERRL Pupils: Present: normal accommodation - ENT ENT exam: Present: mucous membranes moist - Neck Neck exam: Present: normal inspection - Respiratory Respiratory exam: Present: CTAB. Absent: rales, respiratory distress, rhonchi, wheezes - Cardiovascular Cardiovascular exam: Present: irregular rhythm, tachycardia. Absent: diastolic murmur, systolic murmur - GI/Abdominal GI/Abdominal exam: Present: normal bowel sounds, soft. Absent: distended, tenderness - Extremities Exam Extremities exam: Present: normal inspection. Absent: joint swelling, pedal edema, tenderness - Back Exam Back exam: Present: normal inspection. Absent: paraspinal tenderness, vertebral tenderness - Neurological Exam Neurological exam: Present: alert, oriented X3, no focal deficits - Psychiatric Psychiatric exam: Present: normal affect, normal mood - Skin Skin exam: Present: dry, intact, normal color, warm Infectious Disease CN: Results - Labs CBC & Chem 7: 12/28/16 03:52 12/28/16 03:52 Cultures: Cultures 12/26/16 12:30 Blood Culture - Preliminary Peripheral Venipuncture No growth. 12/26/16 12:30 Blood Culture - Preliminary Peripheral Venipuncture No growth. Serology: Serology 12/28/16 12/18/16 Range/Units 11:30 05:50 Urine Color Yellow (Yellow) Urine Clarity Clear (Clear) Urine pH 6.5 (5.0-8.0) pH Units Ur Specific [place] 1.010 (1.010-1.025) Urine Protein Negative (Neg-Trace) mg/dL Urine Glucose (UA) Normal (Normal) mg/dL Urine Ketones Negative (Negative) mg/dL Urine Blood Negative (Negative) Urine Nitrite Negative (Negative) Urine Bilirubin Negative (Negative) Urine Urobilinogen Normal (Normal) mg/dL Ur Leukocyte Esterase Negative (Negative) Ur Culture Indicated? NO (NO) Hepatitis A IgM Ab Nonreactive (Nonreactive) Hep Bs Antigen Nonreactive (Nonreactive) Hep B Core IgM Ab Nonreactive (Nonreactive) Hepatitis C Ab Screen Nonreactive (Nonreactive) - VTE Documentation of Mechanical Device: Intermittent pneumatic compression device Consult Discharge Plan - Plan Instructions: Lisinopril (By mouth), Furosemide (By mouth), Potassium Chloride (By mouth), Aspirin (By mouth), Nitroglycerin, Rapid Release (By mouth), Atorvastatin (By mouth), Carvedilol (By mouth), Clopidogrel (By mouth), Heart Failure (DC), Left Heart Catheterization (DC), Acute Respiratory Distress Syndrome (DC), Syncope (DC), Diabetes Mellitus Type 2 in Adults (DC), Chronic Obstructive Pulmonary Disease (DC), Pneumonia (DC) Additional Instructions: Please restart her home medications as directed. Please fill your prescriptions and start her home medications including aspirin , Plavix, atorvastatin, carvedilol, lisinopril, Lasix, potassium. Please use nitroglycerin under your tongue as needed for chest pain. As wear oxygen at all times. Please follow up with pulmonology and cardiology as scheduled. Please follow-up with your primary care physician in one to 2 weeks. Please return for any new or worsening symptoms. Referrals: [facility] [Provider Group] (1-2 weeks) Tano Valencia MD [Partnered Physician] - 01/06/17 2:30 pm (1-2 weeks) Tawanda Chi MD [Primary Care Provider] - 12/29/16 2:30 pm Prescriptions: Nitroglycerin 0.4 mg SL Q5MIN PRN #30 tab.subl PRN Reason: Chest Pain Aspirin 81 mg PO DAILY #30 tab.chew Atorvastatin [Lipitor] 20 mg PO HS #30 tablet Carvedilol [Coreg] 6.25 mg PO BIDWM #60 tablet Clopidogrel [Plavix] 75 mg PO DAILY #30 tablet Furosemide [Lasix] 40 mg PO DAILY #30 tablet Lisinopril [Zestril] 2.5 mg PO BID #60 tablet Potassium Chloride 10 meq PO DAILY #30 tab.er.prt
--- NOTE | 2016-12-28 13:24 | Discharge Summary ---
Date of Encounter: 12/28/16 Time of Encounter: 13:00 - Discharge Diagnosis (1) Acute on chronic respiratory failure with hypoxemia Priority: Primary Status: Acute (2) Acute systolic CHF (congestive heart failure) Priority: Primary Status: Acute (3) Pulmonary hypertension due to hypoxia Priority: Secondary Status: Suspected (4) Acute kidney injury Priority: Secondary Status: Resolved (5) Hypomagnesemia Priority: Secondary Status: Acute (6) Leukocytosis Priority: Secondary Status: Acute Qualifiers: Leukocytosis type: leukemoid reaction Qualified Code(s): D72.823 - Leukemoid reaction (7) Tobacco abuse Priority: Secondary Status: Chronic (8) Diabetes mellitus type 2 in nonobese Priority: Secondary Status: Chronic (9) Coronary artery disease Priority: Secondary Status: Acute Qualifiers: Coronary Disease-Associated Artery/Lesion type: [place] artery [place] vs. transplanted heart: [place] heart Associated angina: without angina Qualified Code(s): I25.10 - Atherosclerotic heart disease of [place] coronary artery without angina pectoris (10) Atrial fibrillation Priority: Secondary Status: Acute Qualifiers: Atrial fibrillation type: paroxysmal Qualified Code(s): I48.0 - Paroxysmal atrial fibrillation (11) Interstitial lung disease Priority: Secondary Status: Chronic - Discharge Medications Prescriptions: Nitroglycerin 0.4 mg SL Q5MIN PRN #30 tab.subl PRN Reason: Chest Pain Aspirin 81 mg PO DAILY #30 tab.chew Atorvastatin [Lipitor] 20 mg PO HS #30 tablet Carvedilol [Coreg] 6.25 mg PO BIDWM #60 tablet Clopidogrel [Plavix] 75 mg PO DAILY #30 tablet Furosemide [Lasix] 40 mg PO DAILY #30 tablet Levofloxacin [Levaquin] 750 mg PO DAILY #4 tablet Lisinopril [Zestril] 2.5 mg PO BID #60 tablet Potassium Chloride 10 meq PO DAILY #30 tab.er.prt Home Medications: Fluticasone/Vilanterol [Breo Ellipta 200-25 Mcg INH] 1 each IH DAILY 12/11/16 [ History] Gabapentin [Neurontin] 600 mg PO TID 12/11/16 [History] Gemfibrozil [Lopid] 600 mg PO BIDWM 12/11/16 [History] GlipiZIDE [Glipizide] 10 mg PO BID 12/11/16 [History] Indomethacin 50 mg PO TID PRN 12/11/16 [History] Metformin HCl [Glucophage] 1,000 mg PO BID 12/11/16 [History] Omeprazole [PriLOSEC] 20 mg PO DAILY 12/11/16 [History] Umeclidinium [place] [Incruse Ellipta] 62.5 mcg IH DAILY 12/11/16 [History] Albuterol Neb [Proventil Neb] 2.5 mg IH 3-4XD PRN 12/17/16 [History] Albuterol Sulfate [Albuterol Inhaler] 2 puff IH Q4H PRN 12/17/16 [History] HYDROcodone/Acet 7.5/325 mg [[place] 7.5-325 mg] 1 tab PO Q6H PRN 12/17/16 [ History] Montelukast [Singulair] 10 mg PO DAILY 12/17/16 [History] Aspirin 81 mg PO DAILY #30 tab.chew 12/23/16 [Rx] Atorvastatin [Lipitor] 20 mg PO HS #30 tablet 12/23/16 [Rx] Carvedilol [Coreg] 6.25 mg PO BIDWM #60 tablet 12/23/16 [Rx] Clopidogrel [Plavix] 75 mg PO DAILY #30 tablet 12/23/16 [Rx] Furosemide [Lasix] 40 mg PO DAILY #30 tablet 12/23/16 [Rx] Lisinopril [Zestril] 2.5 mg PO BID #60 tablet 12/23/16 [Rx] Nitroglycerin 0.4 mg SL Q5MIN PRN #30 tab.subl 12/23/16 [Rx] Potassium Chloride 10 meq PO DAILY #30 tab.er.prt 12/23/16 [Rx] Fluticasone Propionate Nasal [Flonase] 100 mcg NS DAILY bottle 12/28/16 [Rx] Furosemide [Lasix] 40 mg PO DAILY tablet 12/28/16 [Rx] Ipratropium/Albuterol Neb [Duoneb] 3 ml IH QIDR inhsol 12/28/16 [Rx] Levofloxacin [Levaquin] 750 mg PO DAILY #4 tablet 12/28/16 [Rx] Metoprolol XL (24 HR) Succ [Toprol Xl] 12.5 mg PO DAILY tab.er.24h 12/28/16 [Rx ] Rivaroxaban [Xarelto] 20 mg PO 1700 tablet 12/28/16 [Rx] Allergies/Adverse Reactions: Allergies No Known Allergies Allergy (Verified 12/11/16 21:24) - Notes to Outpatient Provider TO have CBC in one week to recheck WBC as it was elevated from steroids. Date of admission: 12/17/16 22:02 Primary care physician: Tawanda Chi MD Consults: 12/20/16 10:58 Consult to Pulmonology [CONS] Routine Consulting Provider: [facility] Reason for Consult: AECOPD. history of ILD. Patient requesting loca pulmonoogist Call Completed: Yes 12/20/16 17:51 Consult to Cardiology [CONS] Routine Comment: Consulting Provider: Rolan Willis Reason for Consult: New onset CHF. EF of 40% last EF in 2014 was 60%. Possible Ischemic cardiomyopathy? Call Completed: No 12/22/16 13:50 Consult to Cardiac Rehabilitation-Phase1 [CONS] Routine Comment: Reason for Consult: post op cath Call Completed: Yes 12/22/16 13:51 Consult to Cardiac Rehabilitation-Phase1 [CONS] Routine Comment: Reason for Consult: post op cath Call Completed: Yes 12/28/16 10:20 Consult to Infectious Diseases [CONS] Routine Consulting Provider: [facility] Reason for Consult: Leukocytosis Time Notified: 10:20 Call Completed: Yes Discharging clinician: Janusz Ponce Anticipated date of discharge: 12/28/16 - Patient Status Disposition: Home, Self-Care Condition: Good Functional capacity at discharge: uses cane/walker Overall status at discharge: patient is progressing back to baseline - Discharge Instructions Instructions: Lisinopril (By mouth), Furosemide (By mouth), Potassium Chloride (By mouth), Aspirin (By mouth), Nitroglycerin, Rapid Release (By mouth), Atorvastatin (By mouth), Carvedilol (By mouth), Clopidogrel (By mouth), Heart Failure (DC), Left Heart Catheterization (DC), Acute Respiratory Distress Syndrome (DC), Syncope (DC), Diabetes Mellitus Type 2 in Adults (DC), Chronic Obstructive Pulmonary Disease (DC), Pneumonia (DC) Follow Up With: [facility] [Provider Group] - 01/04/17 1:15 pm (you will be seeing dr villeda ) Tano Valencia MD [Partnered Physician] - 01/06/17 2:30 pm (1-2 weeks) Tawanda Chi MD [Primary Care Provider] - 12/29/16 2:30 pm Additional Instructions: Please restart her home medications as directed. Please fill your prescriptions and start her home medications including aspirin , Plavix, atorvastatin, carvedilol, lisinopril, Lasix, potassium. Please use nitroglycerin under your tongue as needed for chest pain. wear oxygen at all times. Please follow up with pulmonology and cardiology as scheduled. Please follow-up with your primary care physician in one to 2 weeks. Please return for any new or worsening symptoms. Need to have blood count checked in one week. - Diet and Activity Activity: increase activity as tolerated Diet: advance to your usual diet (1500ml fluid restriction/24 hours) Hospital course: Mr. Ruiz is a 56 year old male with history of interstitial lung disease presented with shortness of breath and syncope. Patient was evaluated and pulmonary hypertension was found on echocardiogram. Pulmonary was consulted and will manage the patient as outpatient. Echo revealed a decreased EF and the patient underwent cardiac catheterization which revealed a lesion in the proximal LAD which he received a drug-eluting stent. He was to be discharged but was still markedly fluid overloaded so diuresis was continued. He had issues with hyperglycemia worsened by steroids. Steroids were ultimately stopped by his WBC began to climb after this time. He had no fever and no evidence of infection except for occasional purulent sputum. At that time Levaquin was started. He had elevation of his creatinine with diuresis and he was given one liter of IV fluid with improvement. Edema markedly improved with treatment. On 12/28/16 he was feeling better. His edema was improved. His WBC was still elevated and he was evaluated by ID with recommendations to complete Levaquin course. He was afebrile with good BP. At that time he was felt stable for discharge home. - Time Spent with Patient Total time spent providing and/or coordinating discharge services: 44min - Constitutional Vitals: Temp Pulse Resp BP Pulse Ox 97.6 F 99 15 104/79 97 12/28/16 11:25 12/28/16 11:25 12/28/16 11:25 12/28/16 11:25 12/28/16 11:25 General appearance: Present: A&O X 3, answers questions appropriately - Head Head exam: Present: normocephalic - Eye Eye exam: Present: conjuntiva pink - ENT ENT exam: Present: mucous membranes moist - Respiratory Respiratory exam: Present: decreased breath sounds, rales - Cardiovascular Cardiovascular exam: Present: RRR. Absent: tachycardia - GI/Abdominal GI/Abdominal exam: Present: soft. Absent: tenderness - Extremities Exam Extremities exam: Present: warm. Absent: pedal edema - Neurological Exam Neurological exam: Present: alert, oriented X3, no focal deficits - Psychiatric Psychiatric exam: Present: normal affect, normal mood - Skin Additional comments: Ecchymoses present - VTE Documentation of Mechanical Device: Intermittent pneumatic compression device
[2016-12-28] MEDS: *HR* Rivaroxaban 10 MG TABLET PO SCH (16:05)
--- NOTE | 2017-01-06 08:44 | Invasive Diagnostic Lab Proc ---
Name: Hai Ruiz Date of Study: 12/22/2016 Date: 1960 Ht: 66.1in Medical Record#: [id number] Age: 56 Wt: 175.71lb Gender: Male BSA: 1.9 Order #: [id number] BMI: 28.24 Physicians Procedure Physician: Tal Brown MD Referring MD: Referring MD: Staff Name Position Time In Ana María Lyon RT (R) Scrub 01:04 PM Laura Figueredo RN Social Science Manager 01:04 PM Salma Lind RT (R) Monitor 01:05 PM Jacquelin Milligan RN Nurse 01:57 PM Indications Indication Unstable Angina New onset CHF Procedures Performed Procedure L HRT ARTERY/VENTRICLE ANGIO Pre-Procedure Checklist Informed consent is complete signed and on chart. H\\T\\P is on chart. ID band is on and ID verified with patient. Patient NPO for procedure The procedure was described for the patient and questions were answered. ECG is on chart. Plan of Care Patient will tolerate the procedure without complications. Adequate level of comfort will be maintained. Hemodynamics will remain stable Patient will recover from procedure without complications. Respiratory function will be maintained. Cardiac rhythm will remain stable. Patient temperature will be maintained. Patient and/or family have verbalized understanding of the procedure. Patient Education Chief Complaint/Reason for Test: Cardiac Cath Developmental Category: Adult (18-64 years) Developmentally Appropriate for Age: Yes Learning Barriers: None Education Needs: Procedure Education Method: Verbal Information Taught: Cardiac Cath Educational Evaluation: Able to repeat information Intravenous Access Time IV Size Location DC'd Fluid/Drip Rate Units RN 12:37 PM 20g 1 11/10" Patent On Arrival Lt Antecubital 0.9NaCl 25 ml/hr Laura Figueredo RN Allergies VANCOMYCIN PENICILLINS SULFA DRUGS Vital Signs Time BP (mmHg) HR (bpm) O2 Sat. RR (bpm) LOC 107 / 85 82 16 % 94 01:07 PM / % 5 = Fully awake and oriented or at pre-proc level 01:07 PM / % 5 = Fully awake and oriented or at pre-proc level 01:24 PM / % 4 = Oriented but drowsy 01:40 PM / % 5 = Fully awake and oriented or at pre-proc level 01:06 PM 112 / 86 80 92 % 10 01:10 PM 115 / 85 80 94 % 12 01:16 PM 104 / 71 75 93 % 15 01:20 PM 103 / 77 81 94 % 17 01:25 PM 105 / 74 76 94 % 13 01:30 PM 105 / 77 84 91 % 7 01:36 PM 105 / 75 82 93 % 13 01:40 PM 102 / 78 78 94 % 13 01:41 PM 104 / 81 81 91 % 13 01:46 PM 113 / 72 83 92 % 01:51 PM 114 / 85 81 92 % 23 Procedural Medications Time Medication Dose Units Method Given By 01:06 PM Oxygen 2 L/min nasal cannula Laura Figueredo RN 01:06 PM Versed 1 mg Intravenous Laura Figueredo RN 01:13 PM Lidocaine 2% 17 ml Subcutaneous Tal Brown MD 01:26 PM Nitroglycerin 200 mcg Intracoronary Tal Brown MD 01:34 PM Aggrastat Bolus: 12 ml Intravenous Laura Figueredo RN 01:36 PM Angiomax 1.75mg/kg/hr: 28 ml Intravenous Laura Figueredo RN 01:52 PM Aspirin (325mg) 325 mg Orally Laura Figueredo RN 01:52 PM Plavix 600 mg Orally Laura Figueredo RN ASA Classification: CLASS II- Mild systemic disease (i.e. well-controlled diabetes, hypertension, asthma, cigarette smoking) Hipolito Score Preprocedure Postprocedure Activity 2- Moves 4 extremities sustained head lift Activity 2- Moves 4 extremities sustained head lift Circulation 2- SBP +/= 20 points of pre-anesthetic level Circulation 2- SBP +/= 20 points of pre-anesthetic level Consciousness 2- Awake and alert oriented x 3 Consciousness 2- Awake and alert oriented x 3 O2 Saturation 1- Needs O2 inhalation to maintain O2 saturation of 90% O2 Saturation 1- Needs O2 inhalation to maintain O2 saturation of 90% Respiratory 2- Able to deep breathe and cough well Respiratory 2- Able to deep breathe and cough well Total Score 9 Total Score 9 Contrast Agent: Isovue Diagnostic Contrast: 190 ml Total Contrast: 190 ml Fluoro Dose: 676 mGy Procedure Log Time Note Enter By 01:01 PM CathStat 01:04 PM Pt arrived to [facility] 2 at 13:04 [email or web address] 01:04 PM Ana María Lyon RT (R) Position: Scrub Time in: 13:04 yamileth 01:05 PM Laura Figueredo RN Position: Social Science Manager Time in: 13:04 :05 PM Vitals capture started with the following parameters, Patient=Adult, Interval=5 min, Initial Znvklonj=556 mmHg, Deflation Rate=5 mmHg, Cuff placed on Left Leg 01:05 PM Vitals capture stopped. 01:05 PM Vitals capture started with the following parameters, Patient=Adult, Interval=5 min, Initial Jmlzauuy=992 mmHg, Deflation Rate=5 mmHg, Cuff placed on Left Leg 01:05 PM Salma Lind RT (R) Position: Monitor Time in: 13::05 PM Patient charges- Angio tray pack, Navilyst 3mm J, Pulse Oximetry and ACIST tubing and transducer : PM IV Supplies used: J loop Angio Cath. : PM HR=80 bpm, OIEL=385/86 mmhg, SpO2=92.0 %, Resp=10 B/min, Comment=nsr : PM Physician arrived 13:06 : PM ASA Class CLASS II- Mild systemic disease (i.e. well-controlled diabetes, hypertension, asthma, cigarette smoking) dsp: PM Meet and greet completed : PM Sign in performed according to hospital policy. : PM Time: 13:06 Oxygen on at 2 L/min per nasal cannula by Laura Figueredo RN 07 PM Time: 13:06 Versed 1 mg Intravenous Given by Laura Figueredo RN 07 PM Time: 13:07 Patient comfortable and pain free: Yes PM Time: 13:07LOC: 5 = Fully awake and oriented or at pre-proc level :08 PM Clinical Presentation: Unstable angina :10 PM HR=80 bpm, AHHF=798/85 mmhg, SpO2=94.0 %, Resp=12 B/min, Comment=nsr 01:11 PM Case Start 01:11 PM Procedure start 13:11 13 PM Time: 13:13 17 ml Lidocaine 2% to right groin Subcutaneous Given by Tal Brown MD :14 PM Access obtained by percutaneous puncture. 5Fr 10cm Terumo [place] sheath placed in right Femoral artery. [id number] dspellman 01:14 PM 5Fr FL 4 catheter inserted over the wire [facility] dspellman 01:14 PM 0.035 145cm Navilyst 3mmJ wire [id number] dspellman 01:15 PM LCA angiography performed in multiple views. dspellman 01:15 PM Pressure channel 1 zeroed. 01:16 PM HR=75 bpm, INJP=086/71 mmhg, SpO2=93.0 %, Resp=15 B/min, Comment=nsr 01:16 PM Pressure channel 1 zeroed. 01:20 PM HR=81 bpm, LNIB=256/77 mmhg, SpO2=94.0 %, Resp=17 B/min, Comment=nsr 01:24 PM Pressure channel 1 zeroed. 01:24 PM Time: 13:07LOC: 5 = Fully awake and oriented or at pre-proc level dspellman 01:24 PM Time: 13:07 Patient comfortable and pain free: Yes dspellman 01:25 PM Recorded Pressure: Ao, HR=76, Condition=Condition 1 (Aorta) Ao 100/72/84 01:25 PM HR=76 bpm, CDBA=804/74 mmhg, SpO2=94.0 %, Resp=13 B/min, Comment=nsr 01:26 PM Time: 13:26 Nitroglycerin 200 mcg Intracoronary Given by Tal Brown MD dspellman 01:27 PM 5Fr FL5 catheter inserted over the wire [id number] dspellman 01:29 PM Lesion found in Proximal LAD. Pre Stenosis: 80 Pre MARIO Flow: 3: Complete and Brisk Flow/Perfusion dspellman 01:29 PM Catheter removed dspellman 01:29 PM 5Fr FR 4 catheter inserted over the wire [facility] dspellman 01:30 PM RCA angiography performed in multiple views. dspellman 01:30 PM HR=84 bpm, HPPP=044/77 mmhg, SpO2=91.0 %, Resp=7 B/min, Comment=nsr 01:31 PM Recorded Pressure: Ao, HR=85, Condition=Condition 1 (Aorta) Ao 97/71/83 01:32 PM Catheter removed dspellman 01:33 PM 5Fr 3DRC catheter inserted over the wire [id number] dspellman 01:33 PM Coronary Dominance: right dspellman 01:33 PM Lesion found in 1st Marginal. Pre Stenosis: 30 Pre MARIO Flow: 3: Complete and Brisk Flow/Perfusion dspellman 01:34 PM Catheter removed dspell:34 PM 5Fr Pigtail catheter inserted over the wire [facility] dspellman 01:35 PM Recorded Pressure: LV, HR=83, Condition=Condition 1 (Left Ventricle) LV 97/11/20 01:35 PM Recorded Pressure: LV, Ao, HR=94, Condition=Condition 1 (Left Ventricle) LV 91/39/38, (Aorta) Ao 112/51/83 01:36 PM HR=82 bpm, FUKQ=271/75 mmhg, SpO2=93.0 %, Resp=13 B/min, Comment=nsr 01:36 PM Recorded Pressure: LV, Ao, HR=80, Condition=Condition 1 (Left Ventricle) LV 92/30/34, (Aorta) Ao 100/63/90 01:36 PM Time: 13:34 Aggrastat Bolus: 12 ml Intravenous Given by Laura Figueredo RN Shi pump dspell:37 PM Time: 13:36 Angiomax 1.75mg/kg/hr: 28 ml Intravenous Given by Laura Figueredo RN Shi pump dspell:37 PM Catheter selectively placed in left ventricle dspell:37 PM Bolus angiogram of left Ventricle complete: 8 ml/sec for a total of 24 mls dspell 01:37 PM Catheter removed dspellman 01:37 PM PCI lesion in Proximal LAD. dspellman 01:37 PM PCI Status Urgent dspellman 01:37 PM PCI Indication: PCI for high risk Non-STEMI or unstable angina dspell 01:38 PM Sheath exchanged for a 6 Fr 11 cm Cordis Shreya sheath [id number] dspellman 01:38 PM 6Fr [id number] Cordis guide catheter was used to cannulate the PCI vessel successfully. reused? No dspellman :38 PM .014 Prowater 182cm guide wire across target lesion- successful. reused? No dspellman :39 PM Inflation device was opened. dspellman 01:39 PM NIBP STAT measurement started. 01:39 PM Recorded Pressure: Ao, HR=82, Condition=Condition 1 (Aorta) Ao 71/30/51 01:40 PM Time: 13:24 Patient comfortable and pain free: Yes dspellman 01:40 PM Time: 13:24LOC: 4 = Oriented but drowsy dspellman 01:40 PM HR=78 bpm, MSQN=158/78 mmhg, SpO2=94.0 %, Resp=13 B/min, Comment=nsr 01:41 PM HR=81 bpm, LJLF=370/81 mmhg, SpO2=91.0 %, Resp=13 B/min 01:42 PM 3.5mm x 32mm Synergy drug-eluting stent across target lesion- successful Lot #[id number] dspellman 01:43 PM Stent deployed @ 16 bhaskar for 8 seconds dspellman 01:44 PM Stent delivery system removed intact. dspell 01:45 PM Guide wire removed intact. dspell 01:45 PM Bolus angiogram of right Femoral complete: 4 ml/sec for a total of 7 mls dspell 01:45 PM Guide catheter removed intact. dspell 01:45 PM Procedure completed at 13:45 dspellman 01:46 PM HR=83 bpm, HBVK=389/72 mmhg, SpO2=92.0 % 01:50 PM Sign out completed: Radiation Dose 676.25 mGy Fluoro Time: 5.8 Isovue 370 - 200ml contrast 190 ml given by Tal Brown MD. Complications: NoneCardiac Rehab Consult needed: YesConfirmed administered medications: Yes ell 01:50 PM Isovue 370 - 200ml,1 Bottle(s) used. dspell 01:51 PM HR=81 bpm, JVAP=770/85 mmhg, SpO2=92.0 %, Resp=23 B/min, Comment=nsr 01:51 PM Arterial sheath pulled, Perclose closure device used and was Successful [id number] S/N. dspell 01:51 PM Post ECG NSR dspell 01:51 PM Post Blood Pressure 114/85 dspellman 01:52 PM Time: 13:52 Aspirin (325mg) 325 mg Orally Given by Laura Figueredo RN [email or web address] 01:52 PM Time: 13:52 Plavix 600 mg Orally Given by Laura Figueredo RN dspell 01:54 PM 13:54 Post Pulses Bilateral DP 2+ dspellman 01:54 PM 13:54 Post Pulses Bilateral PT 1+ dspellman 01:55 PM Information taught Cardiac Cath, PCI, and Perlose dspellman 01:55 PM Time: 13:40LOC: 5 = Fully awake and oriented or at pre-proc level :56 PM Vitals capture stopped. 01:57 PM Jacquelin Milligan RN Position: Nurse Time in: 13:57 :57 PM Education needs Procedure, Plan of Care, and Responsibilities of Patient in Care :58 PM Learning barriers :None :58 PM Education Methods Verbal :58 PM Education evaluation Able to repeat information :58 PM Site status No bleeding/hematoma - Rt Groin as reported by Ana María Lyon RT (R) at 13:58 :58 PM Opsite applied :58 PM Report given to Lisset RN Pt taken to 2NE Room #35. 13:58 :58 PM Plavix, Effient or Brilinta given Yes :58 PM Patient out of room: 13:58 :58 PM Family placed in consult room. :58 PM Complications: None :58 PM Fluoro Time: 5.8 :58 PM Isovue 370 - 200ml contrast 190 ml given by Tal Brown MD. :59 PM Radiation Dose 676.25 mGy [facility] Complications Complication None None Hemodynamics Pressures Site Systolic/A Wave Diastolic/V Wave Mean AO 100 72 84 AO 97 71 83 LV 97 11 20 LV 91 39 38 AO 112 51 83 LV 92 30 34 AO 100 63 90 AO 71 30 51 Post Procedure Information Blood Pressure: 114/85 mmHg Rhythm: NSR Post procedural instructions were given Closure Device Time Device Success/Fail 12/22/2016 1:59:00 PM Perclose ProGlide Site Checks Time Location Status Staff Sheath In? Note 01:58 PM Rt Groin No bleeding/hematoma Ana María Lyon RT (R) Pulses Time Site Pre-Procedure Post-Procedure Note 12/22/2016 10:59:00 AM Bilateral DP 2+ 12/22/2016 10:59:00 AM Bilateral PT 1+ 12/22/2016 11:00:00 AM Bilateral radial 2+ 1:54:00 PM Bilateral DP 2+ 1:54:00 PM Bilateral PT 1+ Updated by RT Linda (R) on 12/22/2016 2:06:01 PM RT Linda electronically signed on 01/06/2017 8:39:12 AM with status of Final
== END 2016-12-28 18:10 | disposition home or self-care (01) | DRG 246 ==
LOC: 2NENU 14:58 → EMEROO 14:58 → 2NENU 19:40 → SUATTDRO 22:02 → 2NENU 12-20 18:23
PROVIDERS: ADMIT Family Medicine; ATTEND Internal Medicine

== ENCOUNTER 2017-02-22 21:12 | Inpatient (IN) ==
--- NOTE | 2017-02-22 21:59 | Emergency Department Note ---
Disposition Clinical Impression: Acute kidney injury, Near syncope Hypotension Qualifiers: Hypotension type: unspecified hypotension type Qualified Code(s): I95.9 - Hypotension, unspecified Leukocytosis Qualifiers: Leukocytosis type: unspecified Qualified Code(s): D72.829 - Elevated white blood cell count, unspecified Disposition: Admitted As Inpatient Condition: Fair Referrals: NO,PCP [Non-Partnered Physician] - Forms: ED Satisfaction Letter Time of Disposition: 23:44 Syncope HPI - General Chief Complaint: ED Syncope Stated Complaint: low BP, near syncope Time Seen by Provider: 02/22/17 21:43 Source: patient, family Mode of arrival: wheelchair Limitations: no limitations Nursing Notes Reviewed: Yes Vital Signs Reviewed: Yes - History of Present Illness HPI Narrative: Patient is a 56-year-old male with past medical history of COPD, hypertension, hyperlipidemia, MS with stent placement in December. He presents today due to low blood pressure and near syncope. Patient states that ever since he had a stent placed in December, he has had low blood pressures. Prior to that, he had hypertension and was on 3 different medications. Since then, his blood pressure has been reportedly low on office checks at home checks for the past several months. He has had all of his blood pressure medications discontinued except for metoprolol 12.5 mg. is out of this medication for the past 4 days. She states that for the past 1-2 weeks, his blood pressure readings have gone worse, as low as 60/40 at home. He has been having multiple episodes of near syncope and syncope when going from sitting to standing. Most recent was near syncope episode prior to arrival. Otherwise, the patient denies any chest pain. He admits to shortness of breath that is baseline for COPD. He does admit to recent weight gain of 4 pounds, worsened pedal edema over the past several days. Denies any fevers, cough, congestion, nausea or vomiting, abdominal pain, diarrhea. - Related Data Home Medications Medication Instructions Recorded Confirmed Fluticasone/Vilanterol [Breo 1 each IH DAILY 12/11/16 12/17/16 Ellipta 200-25 Mcg INH] Gabapentin [Neurontin] 600 mg PO TID 12/11/16 12/17/16 Gemfibrozil [Lopid] 600 mg PO BIDWM 12/11/16 12/17/16 GlipiZIDE [Glipizide] 10 mg PO BID 12/11/16 12/17/16 Indomethacin 50 mg PO TID PRN 12/11/16 12/17/16 Metformin HCl [Glucophage] 1,000 mg PO BID 12/11/16 12/17/16 Omeprazole [PriLOSEC] 20 mg PO DAILY 12/11/16 12/17/16 Umeclidinium Clune [Incruse 62.5 mcg IH DAILY 12/11/16 12/17/16 Ellipta] Albuterol Neb [Proventil Neb] 2.5 mg IH 3-4XD PRN 12/17/16 12/17/16 Albuterol Sulfate [Albuterol 2 puff IH Q4H PRN 12/17/16 12/17/16 Inhaler] HYDROcodone/Acet 7.5/325 mg [Garfield 1 tab PO Q6H PRN 12/17/16 12/17/16 7.5-325 mg] Montelukast [Singulair] 10 mg PO DAILY 12/17/16 12/17/16 Previous Rx's Medication Instructions Recorded Aspirin 81 mg PO DAILY #30 tab.chew 12/23/16 Atorvastatin [Lipitor] 20 mg PO HS #30 tablet 12/23/16 Carvedilol [Coreg] 6.25 mg PO BIDWM #60 tablet 12/23/16 Clopidogrel [Plavix] 75 mg PO DAILY #30 tablet 12/23/16 Furosemide [Lasix] 40 mg PO DAILY #30 tablet 12/23/16 Lisinopril [Zestril] 2.5 mg PO BID #60 tablet 12/23/16 Nitroglycerin 0.4 mg SL Q5MIN PRN #30 tab.subl 12/23/16 Potassium Chloride 10 meq PO DAILY #30 tab.er.prt 12/23/16 Fluticasone Propionate Nasal 100 mcg NS DAILY #1 bottle 12/28/16 [Flonase] Furosemide [Lasix] 40 mg PO DAILY tablet 12/28/16 Ipratropium/Albuterol Neb [Duoneb] 3 ml IH QIDR #100 inhsol 12/28/16 Levofloxacin [Levaquin] 750 mg PO DAILY #4 tablet 12/28/16 Metoprolol XL (24 HR) Succ [Toprol 12.5 mg PO DAILY #30 tab.er.24h 12/28/16 Xl] Rivaroxaban [Xarelto] 20 mg PO 1700 #30 tablet 12/28/16 Allergies Allergy/AdvReac Type Severity Reaction Status Date / Time No Known Allergies Allergy Verified 02/22/17 21:38 Constitutional: Denies: fever Cardiovascular: Denies: chest pain, palpitations Respiratory: Reports: dyspnea (baseline). Denies: cough, wheezes Gastrointestinal: Denies: abdominal pain, nausea, vomiting, diarrhea Genitourinary: Denies: urgency, dysuria Musculoskeletal: Denies: back pain, neck pain Integumentary: Denies: rash Neurological: Reports: other (syncope). Denies: headache, weakness, numbness Past Medical History - Past Medical History Attestation: Yes The following information was validated with the patient. Source: patient Medical history: Reports: COPD, coronary artery disease, hyperlipidemia, myocardial infarction Surgical history: Reports: angioplasty/stent (12/2016), appendectomy Psychiatric history: Reports: no psych history - Social History Smoking Status: Current every day smoker Smokeless Tobacco Status: No Alcohol use: Reports: none Drug use: Reports: none Physical Exam - General General appearance: alert, other (mildly sweaty, pale) - Head Head exam: atraumatic, normocephalic, normal inspection - Eye Eye exam: Present: normal appearance, PERRL, EOMI - ENT ENT exam: normal exam, normal oropharynx, mucous membranes moist - Neck Neck exam: Present: full ROM, trachea midline, other (JVD on exam) - Chest Chest inspection: Present: normal inspection, symmetric chest wall rise - Respiratory Respiratory exam: Present: wheezes (mild wheeze in bilateral LL) - Cardiovascular Cardiovascular exam: Present: regular rate, normal rhythm, normal heart sounds - Abdominal Exam Abdominal exam: Present: soft, Non-Tender. Absent: tenderness, distention, guarding, rebound, rigidity - Extremities Exam Extremities exam: Present: full ROM, pedal edema (moderate bilateral LE, pitting ). Absent: tenderness - Neurological Exam Neurological exam: Present: alert, oriented X3 - Psychiatric Psychiatric exam: Present: normal affect, normal mood - Skin Skin exam: Present: warm, dry, intact, normal color Course Course Narrative: The pressure was 70s over 50s on my exam. Patient has JVD. Significant pedal edema of bilateral lower extremity. He also had wheezes in bilateral lower lobes. Will give patient 2L NS for BP. Will also obtain cardiac workup. Patient has CHF symptoms as well, will need to balance fluids, BP, and CHF symptoms. 23:33 patient has acute on chronic kidney injury. Chronic leukocytosis. UA negative. Troponin 0.01. Chest x-ray showed no acute cardiopulmonary process. Due to chronic hypotension, episodes of near syncope, leukocytosis, acute on chronic kidney injury, will admit the patient. I spoke with Dr. Kerr who did not want me to start any anabolic that this time because the patient's leukocytosis is chronic and he is afebrile. Full cultures have been sent just in case this decision is changed. Hemoccult sent and pending Chest X-Ray 02/22/17 21:39 IMPRESSION: Stable examination. No acute cardiopulmonary process. Chronic interstitial changes are similar to prior. D/ / 02/22/2017 22:18:44 Timothy Vu MD / janeth Interpreting Provider: Timothy Vu MD Vital Signs Temperature 97.3 F L 02/22/17 21:34 Pulse Rate 98 02/22/17 21:34 Respiratory Rate 20 02/22/17 21:34 Blood Pressure 60/42 02/22/17 21:34 O2 Sat by Pulse Oximetry 98 02/22/17 21:34 Temperature 97.3 F L 02/22/17 21:34 Pulse Rate 84 02/22/17 23:15 Respiratory Rate 20 02/22/17 23:15 Blood Pressure 80/61 02/22/17 23:15 O2 Sat by Pulse Oximetry 96 02/22/17 23:15 Oxygen Delivery Oxygen Delivery Nasal Cannula Syncope - [facility] Narrative Medical decision making narrative: The pressure was 70s over 50s on my exam. Patient has JVD. Significant pedal edema of bilateral lower extremity. He also had wheezes in bilateral lower lobes. Will give patient 2L NS for BP. Will also obtain cardiac workup. Patient has CHF symptoms as well, will need to balance fluids, BP, and CHF symptoms. 23:33 patient has acute on chronic kidney injury. Chronic leukocytosis. UA negative. Troponin 0.01. Chest x-ray showed no acute cardiopulmonary process. Due to chronic hypotension, episodes of near syncope, leukocytosis, acute on chronic kidney injury, will admit the patient. I spoke with Dr. Kerr who did not want me to start any anabolic that this time because the patient's leukocytosis is chronic and he is afebrile. Full cultures have been sent just in case this decision is changed. Hemoccult sent and pending - Medical Records Medical records reviewed: Yes I reviewed the patient's medical records. - Lab Data Lab results reviewed: Yes I reviewed the patient's lab results. Result diagrams: 02/22/17 21:56 02/22/17 21:56 Lab Results 02/22/17 02/22/17 02/22/17 Range/Units 21:49 21:56 21:56 WBC 16.0 H (4.3-11.1) K/mcL RBC 3.36 L (4.19-5.50) M/mcL Hgb 9.0 L (12.9-16.9) g/dL Hct 28.5 L (37.5-50.1) % MCV 84.8 (83.0-100.0) fL MCH 26.8 L (28.0-33.3) pg MCHC 31.6 (31.6-35.5) g/dL RDW 15.6 H (11.5-14.5) % Plt Count 177 (140-400) K/mcL MPV 11.0 (9.4-12.4) fL Immature Gran % 0.5 (0-4) % Seg Neutrophils % 77.6 % Lymphocytes % 12.4 % Monocytes % 8.3 % Eosinophils % 0.8 % Basophils % 0.4 % Neutrophils # 12.4 H (1.6-8.9) K/mcL Lymphocytes # 2.0 (0.6-4.6) K/mcL Monocytes # 1.3 (0.0-1.3) K/mcL Eosinophils # 0.1 (0.0-0.6) K/mcL Basophils # 0.1 (0.0-0.2) K/mcL Nucleated RBCs/100 WBC 0.2 H (0) /100 WBC PT 22.9 H (9.4-12.1) Seconds INR 2.1 APTT 35.8 (26.0-36.0) Seconds Sodium (136-145) mEq/L Potassium (3.5-4.5) mEq/L Chloride (98-109) mEq/L Carbon Dioxide (19-29) mEq/L BUN (8-26) mg/dL Creatinine (0.72-1.25) mg/dL Est GFR ( Amer) (> 60) Est GFR (Non-Af Amer) (> 60) BUN/Creatinine Ratio (6-26) Glucose (70-99) mg/dL POC Glucose 132 H (58-89) Calculated Osmolality (280-300) Lactic Acid (0.5-2.2) mmol/L Calcium (8.6-10.8) mg/dL Troponin I (0-0.03) ng/mL Urine Color (Yellow) Urine Clarity (Clear) Urine pH (5.0-8.0) pH Units Ur Specific [place] (1.010-1.025) Urine Protein (Neg-Trace) mg/dL Urine Glucose (UA) (Normal) mg/dL Urine Ketones (Negative) mg/dL Urine Blood (Negative) Urine Nitrite (Negative) Urine Bilirubin (Negative) Urine Urobilinogen (Normal) mg/dL Ur Leukocyte Esterase (Negative) Urine Microscopic RBC (0-3) per hpf Urine Microscopic WBC (0-3) per hpf Ur Squamous Epith Cells (None-Few) per lpf Urine Bacteria (None-Few) per hpf Hyaline Casts (None-Few) per lpf Ur Culture Indicated? (NO) 02/22/17 02/22/17 02/22/17 Range/Units 21:56 21:56 22:07 WBC (4.3-11.1) K/mcL RBC (4.19-5.50) M/mcL Hgb (12.9-16.9) g/dL Hct (37.5-50.1) % MCV (83.0-100.0) fL MCH (28.0-33.3) pg MCHC (31.6-35.5) g/dL RDW (11.5-14.5) % Plt Count (140-400) K/mcL MPV (9.4-12.4) fL Immature Gran % (0-4) % Seg Neutrophils % % Lymphocytes % % Monocytes % % Eosinophils % % Basophils % % Neutrophils # (1.6-8.9) K/mcL Lymphocytes # (0.6-4.6) K/mcL Monocytes # (0.0-1.3) K/mcL Eosinophils # (0.0-0.6) K/mcL Basophils # (0.0-0.2) K/mcL Nucleated RBCs/100 WBC (0) /100 WBC PT (9.4-12.1) Seconds INR APTT (26.0-36.0) Seconds Sodium 131 L (136-145) mEq/L Potassium 5.2 H (3.5-4.5) mEq/L Chloride 98 (98-109) mEq/L Carbon Dioxide 23 (19-29) mEq/L BUN 40 H (8-26) mg/dL Creatinine 2.39 H (0.72-1.25) mg/dL Est GFR ( Amer) 34 L (> 60) Est GFR (Non-Af Amer) 28 L (> 60) BUN/Creatinine Ratio 17 (6-26) Glucose 118 H (70-99) mg/dL POC Glucose (58-89) Calculated Osmolality 283 (280-300) Lactic Acid 1.2 (0.5-2.2) mmol/L Calcium 6.1 L (8.6-10.8) mg/dL Troponin I 0.01 (0-0.03) ng/mL Urine Color (Yellow) Urine Clarity (Clear) Urine pH (5.0-8.0) pH Units Ur Specific [place] (1.010-1.025) Urine Protein (Neg-Trace) mg/dL Urine Glucose (UA) (Normal) mg/dL Urine Ketones (Negative) mg/dL Urine Blood (Negative) Urine Nitrite (Negative) Urine Bilirubin (Negative) Urine Urobilinogen (Normal) mg/dL Ur Leukocyte Esterase (Negative) Urine Microscopic RBC (0-3) per hpf Urine Microscopic WBC (0-3) per hpf Ur Squamous Epith Cells (None-Few) per lpf Urine Bacteria (None-Few) per hpf Hyaline Casts (None-Few) per lpf Ur Culture Indicated? (NO) 02/22/17 Range/Units 22:15 WBC (4.3-11.1) K/mcL RBC (4.19-5.50) M/mcL Hgb (12.9-16.9) g/dL Hct (37.5-50.1) % MCV (83.0-100.0) fL MCH (28.0-33.3) pg MCHC (31.6-35.5) g/dL RDW (11.5-14.5) % Plt Count (140-400) K/mcL MPV (9.4-12.4) fL Immature Gran % (0-4) % Seg Neutrophils % % Lymphocytes % % Monocytes % % Eosinophils % % Basophils % % Neutrophils # (1.6-8.9) K/mcL Lymphocytes # (0.6-4.6) K/mcL Monocytes # (0.0-1.3) K/mcL Eosinophils # (0.0-0.6) K/mcL Basophils # (0.0-0.2) K/mcL Nucleated RBCs/100 WBC (0) /100 WBC PT (9.4-12.1) Seconds INR APTT (26.0-36.0) Seconds Sodium (136-145) mEq/L Potassium (3.5-4.5) mEq/L Chloride (98-109) mEq/L Carbon Dioxide (19-29) mEq/L BUN (8-26) mg/dL Creatinine (0.72-1.25) mg/dL Est GFR ( Amer) (> 60) Est GFR (Non-Af Amer) (> 60) BUN/Creatinine Ratio (6-26) Glucose (70-99) mg/dL POC Glucose (58-89) Calculated Osmolality (280-300) Lactic Acid (0.5-2.2) mmol/L Calcium (8.6-10.8) mg/dL Troponin I (0-0.03) ng/mL Urine Color Dark Yellow (Yellow) Urine Clarity Cloudy A (Clear) Urine pH 5.5 (5.0-8.0) pH Units Ur Specific [place] 1.018 (1.010-1.025) Urine Protein Trace (Neg-Trace) mg/dL Urine Glucose (UA) Normal (Normal) mg/dL Urine Ketones Negative (Negative) mg/dL Urine Blood Negative (Negative) Urine Nitrite Negative (Negative) Urine Bilirubin Small H (Negative) Urine Urobilinogen Normal (Normal) mg/dL Ur Leukocyte Esterase Negative (Negative) Urine Microscopic RBC 0-3 (0-3) per hpf Urine Microscopic WBC 0-3 (0-3) per hpf Ur Squamous Epith Cells Many H (None-Few) per lpf Urine Bacteria None Seen (None-Few) per hpf Hyaline Casts None Seen (None-Few) per lpf Ur Culture Indicated? NO (NO) - Radiology Data Radiology results reviewed: Yes I reviewed the patient's radiology results. Chest X-Ray 02/22/17 21:39 IMPRESSION: Stable examination. No acute cardiopulmonary process. Chronic interstitial changes are similar to prior. D/ / 02/22/2017 22:18:44 Timothy Vu MD / janeth Interpreting Provider: Timothy Vu MD - EKG Data EKG attestation: Yes I reviewed and interpreted this EKG. EKG results narrative: February 1820 1721:35. Normal sinus rhythm. Rate 96. [place] 166. QRS 105. QTc 427. Normal axis. Q waves in V1, V2. These are present on previous EKG. No acute ST elevation or depression. No acute changes from previous EKG on 2016 S.[facility] - [place] Situation: Demographics, MOA Background: Presenting Complaint, Relevant PMH, Meds, & Allergies Assessment: Vital Signs, Course and respsone to treatment, Exam Concerns, Patient/Family Expectation, Pertinant Lab Results, Outstanding Labs Recommendation: Barrier(s) to disposition, Recommendation based on pending studies, treatments, or consults S.BCh[facility] Report Given to: Dr. Enid Hoskins Repor Time: 23:45 Attestation Statement - Attestation Attestation: I personally interviewed and examined this patient and my medical decision- making was reviewed with the ED Resident Physician, Dr. Erazo. I agree with the documented findings, disposition and treatment plan as described except to the extent set forth below. He is a 56-year-old white male who presents to the emergency department today with worsening generalized weakness and near syncopal episodes. Patient states that he has lightheadedness. Lightheadedness upon standing or positional changes causing him to have to sit down at home to avoid falling. She denies any associated symptoms that precede this weakness or during it, including no chest pain pressure or heaviness, no shortness of breath, no fevers or chills, no dizziness or vertigo, no abdominal pain or flank pain, no diaphoresis, no nausea vomiting or bowel changes. Patient states he just feels very fatigued and lightheaded with standing. Patient recently finished Levaquin approximately 5 days ago, which was prescribed for an exacerbation of his COPD. Patient denies any shortness of breath today, no production of cough, no fevers or chills and O2 sats are 98% on his home 2 L. She denies any urinary symptoms no vomiting or diarrheal illnesses and no upper respiratory symptoms. His reports that since having his heart catheter in December he has been having low blood pressures to the point that they have discontinued all of his blood pressure medications, and secondary to nosebleeds he has had his xarelto discontinued. She was hypotensive on arrival, immediately placed on cardiac monitoring IV saline well was established and IV fluid bolus was initiated. Patient had labs done including blood cultures, urinalysis, chest x-ray. Patient's pressure has improved from 60 systolic to 80 systolic with initial 500 mL fluid bolus which is still running. Patient still denies any other symptoms and is resting comfortably at this time. On exam patient feels pale but no diaphoresis, has some faint end expiratory wheezing in the left base but otherwise good air movement bilaterally with no signs of respiratory distress. Patient also has some lower extremity edema 2+ pitting bilaterally. Agree with documented exam findings. EKG does not show any acute ST changes, and he has a negative troponin. Patient does have an anemia with hemoglobin at 9. Will send Hemoccult. She denies any recent tarry black stools or bright red blood per rectum. Chest x- ray is clear, urinalysis is within normal limits. Patient does have some worsening renal insufficiency, possibly due to dehydration. At this point we will continue IV fluids, he does have a leukocytosis but no obvious source for infection, we will cover with broad-spectrum antibiotics IV. Patient will be admitted for further evaluation of his generalized weakness, anemia. At this time currently patient is resting comfortably, asymptomatic, and blood pressure improving with IV fluids.
[2017-02-22] MEDS ORDERED: 0.9 % Sodium Chloride 1,000 ML IVC ONE ×2 (22:00→23:01)
[2017-02-22 22:09] LABS: Basophils # 0.1 K/mcL (0.0-0.2); Basophils % 0.4 %; Eosinophils # 0.1 K/mcL (0.0-0.6); Eosinophils % 0.8 %; Hematocrit 28.5 % (37.5-50.1); Immature Granulocytes % 0.5 % (0-4); Lymphocytes % 12.4 %; Mean Corpuscular HGB Conc 31.6 g/dL (31.6-35.5); Mean Corpuscular Hemoglobin 26.8 pg (28.0-33.3); Mean Corpuscular Volume 84.8 fL (83.0-100.0); Monocytes # 1.3 K/mcL (0.0-1.3); Monocytes % 8.3 %; Neutrophils # 12.4 K/mcL (1.6-8.9); Nucleated Red Blood Cells 0.2 /100 WBC (0); Platelet Count 177 K/mcL (140-400); Red Blood Count 3.36 M/mcL (4.19-5.50); Red Cell Distribution Width 15.6 % (11.5-14.5); Segmented Neutrophils % 77.6 %
[2017-02-22 22:16] LABS: Calcium 6.1 mg/dL (8.6-10.8); INR 2.1; Prothrombin Time 22.9 Seconds (9.4-12.1)
[2017-02-22 22:19] LABS: Activated Partial Thrombo Time 35.8 Seconds (26.0-36.0)
[2017-02-22 22:27] LABS: Potassium 5.2 mEq/L (3.5-4.5)
[2017-02-22 22:37] LABS: Bilirubin,Urine Small (Negative); Blood,Urine Negative (Negative); Clarity,Urine Cloudy (Clear); Color,Urine Dark Yellow (Yellow); Glucose,Urine (UA) Normal (Normal); Ketones,Urine Negative (Negative); Leukocyte Esterase,Urine Negative (Negative); Nitrite,Urine Negative (Negative); PH,Urine 5.5 pH Units (5.0-8.0); Protein,Urine Trace mg/dL (Neg-Trace); Specific Gravity,Urine 1.018 (1.010-1.025); Urobilinogen,Urine Normal (Normal)
[2017-02-22 22:38] LABS: Bacteria,Urine None Seen per hpf (None-Few); Hyaline Casts,Urine None Seen per lpf (None-Few); RBC,Urine 0-3 per hpf (0-3); Squamous Epithelial Cell,Urine Many per lpf (None-Few); WBC,Urine 0-3 per hpf (0-3)
[2017-02-23] MEDS ORDERED: Naloxone 0.4 MG/ML INJ IVP PRN (01:09)
[2017-02-23] MEDS ORDERED: Ondansetron 4 MG/2 ML VIAL IVP PRN (01:09)
--- NOTE | 2017-02-23 01:20 | Internal Med History&Physical ---
Date of Encounter: 02/23/17 Time of Encounter: 01:20 Assessment and Plan (1) Hypotension Current visit: Yes Status: Acute Unclear etiology. Given his ASIM I am concerned he may have a component of intravascular depletion from overdiuresis with lasix. No clear evidence of infectious process. - Hold all antihypertensives - BP improved with NS given in ER (2L) - will not continue, as patient developing shortness of breath in setting of known CHF - Check AM cortisol (hyponatremia, hyperkalemia, concerning for possible adrenal insufficiency) - Monitor closely in step down unit overnight Qualifiers: Hypotension type: unspecified hypotension type Qualified Code(s): I95.9 - Hypotension, unspecified (2) Acute kidney injury Current visit: Yes Status: Acute Likely prerenal etiology. - Urine lytes pending - Received IV fluids in ER - Check creatinine in AM (3) Congestive heart failure (CHF) Current visit: No Status: Acute Most recent EF 40% after recent NSTEMI and LHC with SHEYLA placed in LAD. Initially appeared intravascularly deplete based on hypotension and labs, now may be slightly volume overloaded after volume resuscitation in ER - Monitor volume status carefully, low threshold for lasix if respiratory status worsens Qualifiers: Congestive heart failure type: combined Congestive heart failure chronicity : chronic Qualified Code(s): I50.42 - Chronic combined systolic (congestive) and diastolic (congestive) heart failure (4) Interstitial lung disease Current visit: No Status: Chronic Chronic, stable (5) Diabetes Current visit: No Status: Chronic Qualifiers: Diabetes mellitus type: type 2 Diabetes mellitus complication status: with unspecified complications Diabetes mellitus shelter insulin use: without shelter use Qualified Code(s): E11.8 - Type 2 diabetes mellitus with unspecified complications (6) Atrial fibrillation Current visit: No Status: Acute Rate controlled despite not recently taking beta humberto - Monitor on telemetry - Add back metoprolol once BP controlled Qualifiers: Atrial fibrillation type: paroxysmal Qualified Code(s): I48.0 - Paroxysmal atrial fibrillation (7) Leukocytosis Current visit: Yes Status: Acute Chronic issue of unclear etiology. No clear evidence of infection. Qualifiers: Leukocytosis type: unspecified Qualified Code(s): D72.829 - Elevated white blood cell count, unspecified (8) Hypocalcemia Current visit: Yes Status: Acute In setting of hypomagnesemia - Treat hypomagnesemia first, then replace calcium - Ionized calcium pending (9) Hypomagnesemia Current visit: No Status: Acute Profound, mag level <0.7. - 2g IV mag sufate LORENZA, will avoid overcorrection given ASIM Internal Medicine - H&P: HPI Chief complaint: Weakness, near syncope, hypotension Admitted From: Emergency Dept Plans for Post Hospital Care: Home History of present illness: Mr. Ruiz is a 56 year old male with complicated medical history including interstitial lung disease, pulmonary hypertension, CAD s/p [facility] (12/22/2016) with stent to LAD, and CHF (systolic and diastolic) who presented to the ER this evening with complaint of weakness, and near syncope which has been worsening over the past two months. He states he has been feeling lightheaded ever since he had his LAD stent placed, and his blood pressure at home has been running low - today it was 70s/50s. His called his PCP about the hypotension and they were instructed to report to the ER for further evaluation. In the ER he was found to have BP of 60s/40s and he was given 2 liters NS with improvement of BP to 100/80 on arrival to the step down unit. His states that she has been discontinuing his BP meds with help from his PCP and he has not had metoprolol or lasix for three days. He has not been on any other blood pressure medications. He denies fever or chills, nausea, vomiting or diarrhea. He complains of intermittent orthopnea and weight has gone up 4-5 pounds over the past several days. His notes he also has occasional "panic attacks" which resolve when she gives him 0.5mg PO ativan. Past Med Surg Social Fam HX - Past Medical History Medical history: COPD, coronary artery disease, hyperlipidemia, myocardial infarction Psychiatric history: no psych history - Past Surgical History Surgical History: angioplasty/stent, appendectomy - Social History Smoking Status: Current every day smoker Smokeless Tobacco Status: No Alcohol use: none Drug use: none Internal Medicine - H&P: Meds Fluticasone/Vilanterol [Breo Ellipta 200-25 Mcg INH] 1 each IH DAILY 12/11/16 [ History] Gabapentin [Neurontin] 600 mg PO TID 12/11/16 [History] Gemfibrozil [Lopid] 600 mg PO BIDWM 12/11/16 [History] Indomethacin 50 mg PO TID PRN 12/11/16 [History] Metformin HCl [Glucophage] 1,000 mg PO BID 12/11/16 [History] Omeprazole [PriLOSEC] 20 mg PO DAILY 12/11/16 [History] Umeclidinium [place] [Incruse Ellipta] 62.5 mcg IH DAILY 12/11/16 [History] Albuterol Neb [Proventil Neb] 2.5 mg IH 3-4XD PRN 12/17/16 [History] Albuterol Sulfate [Albuterol Inhaler] 2 puff IH Q4H PRN 12/17/16 [History] HYDROcodone/Acet 7.5/325 mg [[place] 7.5-325 mg] 1 tab PO Q6H PRN 12/17/16 [ History] Aspirin 81 mg PO DAILY #30 tab.chew 12/23/16 [Rx] Atorvastatin [Lipitor] 20 mg PO HS #30 tablet 12/23/16 [Rx] Clopidogrel [Plavix] 75 mg PO DAILY #30 tablet 12/23/16 [Rx] Nitroglycerin 0.4 mg SL Q5MIN PRN #30 tab.subl 12/23/16 [Rx] Potassium Chloride 10 meq PO DAILY #30 tab.er.prt 12/23/16 [Rx] Fluticasone Propionate Nasal [Flonase] 100 mcg NS DAILY #1 bottle 12/28/16 [Rx] Furosemide [Lasix] 40 mg PO DAILY tablet 12/28/16 [Rx] Ipratropium/Albuterol Neb [Duoneb] 3 ml IH QIDR #100 inhsol 12/28/16 [Rx] Metoprolol XL (24 HR) Succ [Toprol Xl] 12.5 mg PO DAILY #30 tab.er.24h 12/28/16 [Rx] Rivaroxaban [Xarelto] 20 mg PO 1700 #30 tablet 12/28/16 [Rx] Spironolactone 100 mg PO DAILY 02/23/17 [History] Allergies No Known Allergies Allergy (Verified 02/22/17 21:38) All Systems PM: A 10-system review of systems was performed and is negative for pertinent findings except as documented above in the HPI. - Constitutional Vitals: Temp Pulse Resp BP Pulse Ox 97.3 F L 95 17 100/81 99 02/22/17 21:34 02/23/17 01:09 02/23/17 01:09 02/23/17 01:09 02/23/17 01:09 General appearance: Present: A&O X 3, no acute distress - Head Head exam: Present: atraumatic - Eye Eye exam: Present: EOMI, sclera anicteric - ENT ENT exam: Present: mucous membranes moist - Neck Neck exam general surgery: Present: supple - Respiratory Additional comments: crackles in bilateral bases - Cardiovascular Cardiovascular exam: Present: irregular rhythm. Absent: diastolic murmur, gallop, rubs, systolic murmur - GI/Abdominal GI/Abdominal exam: Present: normal bowel sounds, soft. Absent: distended, tenderness - Extremities Exam Extremities exam: Present: pedal edema (2+ edema bilateral lower extremities) - Neurological Exam Neurological exam: Present: no focal deficits - Skin Skin exam: Absent: rash Internal Med - H&P Results - Labs CBC & Chem 7: 02/23/17 03:47 02/23/17 03:47
[2017-02-23] MEDS ORDERED: Nitroglycerin 0.4 MG TAB.SUBL SL PRN (02:49)
[2017-02-23 04:28] LABS: Creatinine,Urine 138 mg/dL; Sodium, Urine < 20.0 mEq/L
[2017-02-23] MEDS ORDERED: Albuterol 2.5 MG/3 ML NEBULIZER IH SCH (05:00)
[2017-02-23 05:43] LABS: Basophils # 0.1 K/mcL (0.0-0.2); Basophils % 0.4 %; Eosinophils # 0.1 K/mcL (0.0-0.6); Eosinophils % 0.8 %; Hematocrit 29.6 % (37.5-50.1); Hemoglobin 9.2 g/dL (12.9-16.9); Immature Granulocytes % 0.4 % (0-4); Lymphocytes # 1.9 K/mcL (0.6-4.6); Lymphocytes % 13.8 %; Mean Corpuscular HGB Conc 31.1 g/dL (31.6-35.5); Mean Corpuscular Hemoglobin 26.7 pg (28.0-33.3); Mean Platelet Volume 10.9 fL (9.4-12.4); Monocytes # 1.3 K/mcL (0.0-1.3); Monocytes % 9.2 %; Neutrophils # 10.4 K/mcL (1.6-8.9); Nucleated Red Blood Cells 0.1 /100 WBC (0); Platelet Count 172 K/mcL (140-400); Red Blood Count 3.44 M/mcL (4.19-5.50); Red Cell Distribution Width 15.8 % (11.5-14.5); Segmented Neutrophils % 75.4 %
[2017-02-23 05:59] LABS: Carbon Dioxide 22 mEq/L (19-29); Chloride 102 mEq/L (98-109); Glucose 110 mg/dL (70-99); Magnesium < 0.7 mg/dL (1.6-2.6); Potassium 5.2 mEq/L (3.5-4.5); Sodium 134 mEq/L (136-145); eGFR For African Americans 35 (> 60); eGFR For Non-African Americans 29 (> 60)
[2017-02-23 06:00] LABS: Calcium 5.7 mg/dL (8.6-10.8)
[2017-02-23 06:23] LABS: BUN/Creatinine Ratio 17 (6-26); Blood Urea Nitrogen 39 mg/dL (8-26); Osmolality,Calculated 288 (280-300)
[2017-02-23] MEDS ORDERED: Magnesium Sulfate 2 GM in D5% in Water 100 ML IVPB ONE (06:35)
[2017-02-23] MEDS: Ipratropium/Albuterol Neb 3 ML IH SCH ×2 (07:49→12:18)
[2017-02-23] MEDS ORDERED: Magnesium Sulfate 1 GM in D5% in Water 100 ML IVPB ONE (07:50)
[2017-02-23] MEDS ORDERED: Calcium Gluconate 3,000 MG in D5% in Water 250 ML IVPB ONE (07:51)
[2017-02-23] MEDS: Gabapentin 300 MG CAPSULE PO SCH ×3 (08:18→19:46)
[2017-02-23] MEDS: Aspirin 81 MG TAB.CHEW PO SCH (08:18)
[2017-02-23] MEDS: (Breo Ellipta 200-25 Mcg Inh) IH SCH (08:19)
[2017-02-23] MEDS: Fluticasone Propionate Nasal 50 MCG/SPRAY BOTTLE NS SCH (08:19)
[2017-02-23] MEDS: (Incruse Ellipta] 62.5 MCG) IH SCH (08:19)
[2017-02-23] MEDS: *HR* HYDROcodone/Acet 7.5/325 mg TABLET PO PRN ×2 (08:32→14:54)
[2017-02-23] MEDS ORDERED: Cosyntropin 250 MCG/2 ML VIAL IVP ONE (09:52)
--- NOTE | 2017-02-23 10:20 | Event Note ---
Date of Encounter: 02/23/17 Time of Encounter: 10:19 56-year-old male with history of CAD and recent non-ST elevation [place] with stent placement, underlying CHF and atrial fibrillation, interstitial lung disease and COPD was admitted with unexplained hypotension. Patient seen and examined at bedside. Reports fatigue and weight gain due to fluid retention, no anorexia/nausea/diarrhea/chest pain; Chest- S1, S2 heard, RRR; Lungs with bibasal coarse crackles and intermittent mild wheezing Extremities- 2+ pitting pedal edema B/L upto thighs Labs reviewed-mild hyponatremia and hyperkalemia, leukocytosis, low potassium, magnesium and calcium levels, slightly low morning cortisol level. Chest x-ray reviewed, shows chronic bilateral interstitial changes. Hypotension-likely adrenal insufficiency. blood pressure responded to 2 L normal saline bolus in the emergency room. We will limit IV hydration due to underlying CHF and possible volume overload given bibasal crackles and pedal edema. No source of infection, less likely septic or cardiogenic shock. Recent echocardiogram showed moderately reduced EF, around 40% along with moderate pulmonary hypertension. Antihypertensives including Lasix have been held for the last 3-4 days prior to this admission. Morning cortisol level noted to be 3.3, less than normal. Serum ACTH level is pending. ACTH stimulation test shows minimal response and random cortisol level after ACTH administration. Case discussed with endocrinology at [facility], , who recommends beginning IV hydrocortisone and tapering to oral dose as tolerated. We will follow-up ACTH level to determine primary versus secondary adrenal insufficiency. Patient needs outpatient endocrinology follow-up for further workup. Continue current management for other chronic comorbidities. Goal to reintroduce Lasix when blood pressure stabilizes due to volume overload.
[2017-02-23] MEDS: Hydrocortisone Sodium Succ 100 MG/2 ML VIAL IVP SCH ×2 (15:15→23:48)
[2017-02-23] MEDS: *HR* Heparin 5,000 UNIT/ML VIAL SQ SCH (17:21)
[2017-02-23 17:25] LABS: Hematocrit 28.5 % (37.5-50.1); Hemoglobin 8.9 g/dL (12.9-16.9); Immature Granulocytes % 0.6 % (0-4); Lymphocytes % 4.2 %; Mean Corpuscular HGB Conc 31.2 g/dL (31.6-35.5); Mean Corpuscular Volume 86.4 fL (83.0-100.0); Mean Platelet Volume 11.2 fL (9.4-12.4); Platelet Count 180 K/mcL (140-400); Red Cell Distribution Width 15.8 % (11.5-14.5); Segmented Neutrophils % 90.9 %
[2017-02-23 17:26] LABS: Basophils % 0.2 %; Lymphocytes # 0.6 K/mcL (0.6-4.6); Monocytes # 0.6 K/mcL (0.0-1.3); Monocytes % 4.1 %; Neutrophils # 13.1 K/mcL (1.6-8.9); Nucleated Red Blood Cells 0.2 /100 WBC (0)
[2017-02-23 17:29] LABS: Ionized Calcium 0.79 mmol/L (1.15-1.35)
[2017-02-23 17:42] LABS: Calcium 6.5 mg/dL (8.6-10.8); Phosphorous 4.4 mg/dL (2.3-4.7)
[2017-02-23] MEDS: Magnesium Oxide 400 MG TABLET PO SCH (19:45)
[2017-02-23] MEDS: Magnesium Sulfate 2 GM in D5% in Water 100 ML IVPB PRN (19:46)
[2017-02-23] MEDS: Calcium Gluconate 1,000 MG in D5% in Water 100 ML IVPB PRN (19:46)
[2017-02-24 05:39] LABS: Basophils % 0.1 %; Hematocrit 28.3 % (37.5-50.1); Hemoglobin 8.8 g/dL (12.9-16.9); Immature Granulocytes % 0.6 % (0-4); Lymphocytes # 0.5 K/mcL (0.6-4.6); Lymphocytes % 3.6 %; Mean Corpuscular HGB Conc 31.1 g/dL (31.6-35.5); Mean Corpuscular Hemoglobin 26.9 pg (28.0-33.3); Mean Corpuscular Volume 86.5 fL (83.0-100.0); Mean Platelet Volume 10.8 fL (9.4-12.4); Monocytes # 0.3 K/mcL (0.0-1.3); Monocytes % 2.4 %; Neutrophils # 11.8 K/mcL (1.6-8.9); Nucleated Red Blood Cells 0.2 /100 WBC (0); Platelet Count 180 K/mcL (140-400); Red Blood Count 3.27 M/mcL (4.19-5.50); Red Cell Distribution Width 15.7 % (11.5-14.5); Segmented Neutrophils % 93.3 %
[2017-02-24 05:43] LABS: INR 1.6; Prothrombin Time 17.5 Seconds (9.4-12.1)
[2017-02-24] MEDS: *HR* Heparin 5,000 UNIT/ML VIAL SQ SCH ×2 (05:51→18:34)
[2017-02-24 06:01] LABS: BUN/Creatinine Ratio 20 (6-26); Calcium 6.8 mg/dL (8.6-10.8); Carbon Dioxide 25 mEq/L (19-29); Chloride 106 mEq/L (98-109); Glucose 320 mg/dL (70-99); Magnesium 1.2 mg/dL (1.6-2.6); Osmolality,Calculated 303 (280-300); Phosphorous 3.3 mg/dL (2.3-4.7); Potassium 4.1 mEq/L (3.5-4.5); Sodium 138 mEq/L (136-145); eGFR For African Americans > 60 (> 60); eGFR For Non-African Americans 58 (> 60)
[2017-02-24 06:02] LABS: Blood Urea Nitrogen 25 mg/dL (8-26)
[2017-02-24] MEDS: Magnesium Oxide 400 MG TABLET PO SCH ×2 (08:01→21:10)
[2017-02-24] MEDS: Hydrocortisone Sodium Succ 100 MG/2 ML VIAL IVP SCH ×2 (08:02→21:09)
[2017-02-24] MEDS: Gabapentin 300 MG CAPSULE PO SCH ×3 (08:02→21:10)
[2017-02-24] MEDS: Aspirin 81 MG TAB.CHEW PO SCH (08:02)
[2017-02-24] MEDS: Fluticasone Propionate Nasal 50 MCG/SPRAY BOTTLE NS SCH (08:02)
[2017-02-24] MEDS: *HR* HYDROcodone/Acet 7.5/325 mg TABLET PO PRN ×2 (08:10→21:10)
[2017-02-24] MEDS ORDERED: D5% in Water 1,000 ML IVC PRN (08:29)
[2017-02-24] MEDS ORDERED: *HR* Dextrose 50 % in Water (Syg) 50 ML SYRINGE IVP PRN (08:29)
[2017-02-24] MEDS ORDERED: Dextrose Gel 15 GM PO PRN ×2 (08:29)
[2017-02-24] MEDS: (Incruse Ellipta] 62.5 MCG) IH SCH (10:03)
[2017-02-24] MEDS: (Breo Ellipta 200-25 Mcg Inh) IH SCH (10:03)
[2017-02-24] MEDS: Insulin LISPRO 300 UNITS/3 ML VIAL SQ SCH ×4 (10:03→21:11)
--- NOTE | 2017-02-24 11:00 | Internal Med Progress Note ---
Date of Encounter: 02/24/17 Time of Encounter: 10:57 - Assessment and plan (1) Adrenal insufficiency Current Visit: Yes Status: Acute Assessment and plan: Patient presents with dizziness, generalized weakness and unexplained hypotension. Noted to have low morning cortisol level and in appropriate response to ACTH stimulation test. Has been started on IV hydrocortisone after discussing with endocrinology at [facility]. Continue hydrocortisone 50 mg every 12 hours today. Follow-up ACTH level. Blood pressure is much better although he still has dizziness on ambulation. Fall precautions. Outpatient endocrinology follow-up for further workup. (2) Hypomagnesemia Current Visit: Yes Status: Acute Assessment and plan: Likely due to volume depletion and diuretic use. Continue to replace magnesium with oral magnesium oxide and IV magnesium sulfate. Recheck magnesium. Continue telemetry monitoring, at risk for conduction abnormalities and ventricular arrhythmias. (3) Acute kidney injury Current Visit: Yes Status: Acute Assessment and plan: Likely due to dehydration and use of diuretics. Serum creatinine is noted to be improving, continue IV hydration. Avoid nephrotoxic agents. (4) Hypotension Current Visit: Yes Status: Acute Assessment and plan: Blood pressure improved. Continue IV steroids with goal to convert to oral steroids as tolerated. Qualifiers: Hypotension type: unspecified hypotension type Qualified Code(s): I95.9 - Hypotension, unspecified (5) Hypocalcemia Current Visit: Yes Status: Acute Assessment and plan: Continue to monitor electrolytes closely, replete with IV calcium gluconate. Telemetry monitoring and electrolyte protocol. (6) Hyperkalemia Current Visit: Yes Status: Resolved Assessment and plan: Improved today with improvement in renal function. Continue to monitor. (7) Congestive heart failure (CHF) Current Visit: Yes Status: Chronic Assessment and plan: Hold diuretics and beta humberto for now due to hypotension. Goal to reintroduce diuretics due to peripheral edema. Supplemental oxygen and supportive care. Qualifiers: Congestive heart failure type: combined Congestive heart failure chronicity : chronic Qualified Code(s): I50.42 - Chronic combined systolic (congestive) and diastolic (congestive) heart failure (8) Diabetes mellitus type 2 in nonobese Current Visit: Yes Status: Chronic Assessment and plan: Patient is noted to have steroid-induced hyperglycemia. We will start basal insulin and increase sliding scale insulin to high-dose scale. Diabetic diet. (9) Leukocytosis Current Visit: Yes Status: Chronic Assessment and plan: Noted to have chronic unexplained leukocytosis per review of previous records. Currently noted to be improving. Qualifiers: Leukocytosis type: unspecified Qualified Code(s): D72.829 - Elevated white blood cell count, unspecified (10) Interstitial lung disease Current Visit: Yes Status: Chronic (11) Pulmonary hypertension Current Visit: Yes Status: Chronic (12) Atrial fibrillation Current Visit: Yes Status: Chronic Assessment and plan: Currently rate controlled. Avoid rate control medications until blood pressure stabilizes. Not on chronic anticoagulation due to bleeding complications in the past. Qualifiers: Atrial fibrillation type: paroxysmal Qualified Code(s): I48.0 - Paroxysmal atrial fibrillation - Subjective Interval history: Feels better today; improving dizziness and leg swelling; no nausea, vomiting, shortness of breath; BP improved; - Constitutional Vitals: Temp Pulse Resp BP Pulse Ox 97.5 F L 94 16 116/82 90 02/24/17 07:23 02/24/17 08:00 02/24/17 07:23 02/24/17 07:23 02/24/17 07:23 General appearance: Present: A&O X 3, answers questions appropriately - Respiratory Respiratory exam: Present: CTAB (improved crackles). Absent: accessory muscle use, rales, rhonchi, wheezes - Cardiovascular Cardiovascular exam: Present: RRR, +S1, +S2, tachycardia. Absent: diastolic murmur, gallop, rubs, systolic murmur - GI/Abdominal GI/Abdominal exam: Present: normal bowel sounds, soft, no peritoneal signs. Absent: distended, tenderness - Extremities Exam Extremities exam: Present: full ROM, pedal edema (improving 2+ pedal edema B/L) , warm, radial pulses palpable and symetrical. Absent: calf tenderness, cyanotic - Neurological Exam Neurological exam: Present: CN II-XII intact, oriented X3, no focal deficits. Absent: pronater drift, facial droop, speech deficit - Skin Skin exam: Present: dry, intact Internal Medicine: Result - Labs CBC & Chem 7: 02/24/17 05:10 02/24/17 05:10 Labs: Short CBC 02/24/17 Range/Units 05:10 WBC 12.6 H (4.3-11.1) K/mcL Hgb 8.8 L (12.9-16.9) g/dL Hct 28.3 L (37.5-50.1) % Plt Count 180 (140-400) K/mcL Neutrophils # 11.8 H (1.6-8.9) K/mcL BMP 02/24/17 05:10 Sodium 138 Potassium 4.1 Chloride 106 Carbon Dioxide 25 BUN 25 D Creatinine 1.27 H Glucose 320 H Calcium 6.8 L - ABG Interpretation ABG results: PT/INR, D-dimer PT 17.5 Seconds (9.4-12.1) H 02/24/17 05:10 Consult Discharge Plan - Plan Referrals: Tawanda Chi MD [Primary Care Provider] - 02/28/17 9:30 am
--- NOTE | 2017-02-24 11:32 | Electrocardiograph Report ---
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
[2017-02-24 14:00] LABS: Magnesium 1.7 mg/dL (1.6-2.6)
[2017-02-24 14:29] LABS: Ionized Calcium 0.93 mmol/L (1.15-1.35)
[2017-02-24] MEDS: Magnesium Sulfate 2 GM in D5% in Water 100 ML IVPB PRN (15:58)
[2017-02-24] MEDS: Calcium Gluconate 1,000 MG in D5% in Water 100 ML IVPB PRN (16:00)
[2017-02-24 17:58] LABS: BUN/Creatinine Ratio 16 (6-26); Blood Urea Nitrogen 21 mg/dL (8-26); Calcium 7.4 mg/dL (8.6-10.8); Carbon Dioxide 23 mEq/L (19-29); Chloride 104 mEq/L (98-109); Glucose 462 mg/dL (70-99); Osmolality,Calculated 303 (280-300); Sodium 135 mEq/L (136-145); eGFR For African Americans > 60 (> 60); eGFR For Non-African Americans 56 (> 60)
[2017-02-24] MEDS ORDERED: Insulin LISPRO 300 UNITS/3 ML VIAL SQ SCH (21:00)
[2017-02-24] MEDS: Insulin DETEMIR 100 UNIT/ML X5UNITS SQ SCH (21:09)
[2017-02-24 22:54] LABS: Ionized Calcium 0.96 mmol/L (1.15-1.35)
[2017-02-24 22:57] LABS: Magnesium 1.8 mg/dL (1.6-2.6)
[2017-02-25] MEDS: Calcium Gluconate 1,000 MG in D5% in Water 100 ML IVPB PRN ×2 (00:11→09:46)
[2017-02-25] MEDS: Magnesium Sulfate 2 GM in D5% in Water 100 ML IVPB PRN (00:12)
[2017-02-25] MEDS ORDERED: Insulin LISPRO 300 UNITS/3 ML VIAL SQ ONE (00:23)
[2017-02-25] MEDS: *HR* Heparin 5,000 UNIT/ML VIAL SQ SCH ×2 (05:35→17:06)
[2017-02-25 05:43] LABS: Basophils % 0.1 %; Hematocrit 28.3 % (37.5-50.1); Hemoglobin 8.7 g/dL (12.9-16.9); Immature Granulocytes % 0.7 % (0-4); Lymphocytes # 0.9 K/mcL (0.6-4.6); Lymphocytes % 5.1 %; Mean Corpuscular HGB Conc 30.7 g/dL (31.6-35.5); Mean Corpuscular Hemoglobin 27.2 pg (28.0-33.3); Mean Corpuscular Volume 88.4 fL (83.0-100.0); Mean Platelet Volume 10.8 fL (9.4-12.4); Monocytes # 0.9 K/mcL (0.0-1.3); Neutrophils # 16.1 K/mcL (1.6-8.9); Nucleated Red Blood Cells 0.2 /100 WBC (0); Platelet Count 179 K/mcL (140-400); Red Cell Distribution Width 15.9 % (11.5-14.5); Segmented Neutrophils % 89.1 %
[2017-02-25 05:53] LABS: Ionized Calcium 1.05 mmol/L (1.15-1.35); Magnesium 2.4 mg/dL (1.6-2.6)
[2017-02-25 05:58] LABS: BUN/Creatinine Ratio 19 (6-26); Blood Urea Nitrogen 19 mg/dL (8-26); Calcium 7.9 mg/dL (8.6-10.8); Carbon Dioxide 26 mEq/L (19-29); Chloride 106 mEq/L (98-109); Glucose 132 mg/dL (70-99); Osmolality,Calculated 288 (280-300); Potassium 4.6 mEq/L (3.5-4.5); Sodium 137 mEq/L (136-145); eGFR For African Americans > 60 (> 60); eGFR For Non-African Americans > 60 (> 60)
[2017-02-25] MEDS: *HR* HYDROcodone/Acet 7.5/325 mg TABLET PO PRN ×2 (08:22→15:49)
[2017-02-25] MEDS: Hydrocortisone Sodium Succ 100 MG/2 ML VIAL IVP SCH (08:22)
[2017-02-25] MEDS: Insulin LISPRO 300 UNITS/3 ML VIAL SQ SCH ×4 (08:23→20:33)
[2017-02-25] MEDS: (Breo Ellipta 200-25 Mcg Inh) IH SCH (09:45)
[2017-02-25] MEDS: (Incruse Ellipta] 62.5 MCG) IH SCH (09:45)
[2017-02-25] MEDS: Aspirin 81 MG TAB.CHEW PO SCH (09:46)
[2017-02-25] MEDS: Gabapentin 300 MG CAPSULE PO SCH ×3 (09:46→20:42)
[2017-02-25] MEDS: Fluticasone Propionate Nasal 50 MCG/SPRAY BOTTLE NS SCH (09:46)
[2017-02-25] MEDS: Magnesium Oxide 400 MG TABLET PO SCH ×2 (09:46→20:42)
[2017-02-25] MEDS: Insulin DETEMIR 100 UNIT/ML X5UNITS SQ SCH ×2 (09:46→20:41)
--- NOTE | 2017-02-25 10:55 | Internal Med Progress Note ---
Date of Encounter: 02/25/17 Time of Encounter: 10:52 - Assessment and plan (1) Dizziness Current Visit: Yes Status: Chronic Assessment and plan: Patient presented with chronic dizziness and near syncope for the last few weeks. Continues to have persistent dizziness, blurred vision and gait ataxia despite normalization of blood pressure and receiving IV steroids. 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 We will get MRI brain. Neurology consult. Fall precautions. (2) Leukocytosis Current Visit: Yes Status: Chronic Assessment and plan: Uncertain etiology. Noted to be worsening today, which may be due to IV steroids. Hematology consult for further workup. Qualifiers: Leukocytosis type: unspecified Qualified Code(s): D72.829 - Elevated white blood cell count, unspecified (3) Adrenal insufficiency Current Visit: Yes Status: Acute Assessment and plan: Patient presents with dizziness, generalized weakness and unexplained hypotension. Noted to have low morning cortisol level and in appropriate response to ACTH stimulation test. Has been started on IV hydrocortisone after discussing with endocrinology at [facility]. Continue hydrocortisone 50 mg, taper down to once daily. ACTH level noted to be normal, suggestive of primary adrenal insufficiency. Blood pressure is much better although he still has dizziness on ambulation. Fall precautions. Outpatient endocrinology follow-up for further workup. (4) Hypomagnesemia Current Visit: Yes Status: Resolved Assessment and plan: Improved with oral and IV supplements. (5) Acute kidney injury Current Visit: Yes Status: Resolved Assessment and plan: Likely due to dehydration and volume depletion. Serum creatinine noted to be normal today. (6) Hypotension Current Visit: Yes Status: Resolved Assessment and plan: Blood pressure noted to be normal since initiation of steroids. Continue telemetry monitoring. Qualifiers: Hypotension type: unspecified hypotension type Qualified Code(s): I95.9 - Hypotension, unspecified (7) Hypocalcemia Current Visit: Yes Status: Acute Assessment and plan: Continue to monitor electrolytes closely, replete with IV calcium gluconate. Telemetry monitoring. (8) Hyperkalemia Current Visit: Yes Status: Resolved (9) Congestive heart failure (CHF) Current Visit: Yes Status: Chronic Assessment and plan: Hold diuretics and beta humberto for now due to persistent dizziness. Goal to reintroduce diuretics due to peripheral edema. Supplemental oxygen and supportive care. Qualifiers: Congestive heart failure type: combined Congestive heart failure chronicity : chronic Qualified Code(s): I50.42 - Chronic combined systolic (congestive) and diastolic (congestive) heart failure (10) Diabetes mellitus type 2 in nonobese Current Visit: Yes Status: Chronic Assessment and plan: Patient is noted to have steroid-induced hyperglycemia. Continue basal insulin and sliding scale insulin. Diabetic diet. (11) Interstitial lung disease Current Visit: Yes Status: Chronic (12) Pulmonary hypertension Current Visit: Yes Status: Chronic (13) Atrial fibrillation Current Visit: Yes Status: Chronic Assessment and plan: Currently rate controlled. Metoprolol on hold due to persistent dizziness. Not on chronic anticoagulation due to bleeding complications in the past. Qualifiers: Atrial fibrillation type: paroxysmal Qualified Code(s): I48.0 - Paroxysmal atrial fibrillation - Subjective Interval history: Continues to have dizziness and blurred vision, both at rest and movement; unable to stand up due to unsteady gait and dizziness; - Constitutional Vitals: Temp Pulse Resp BP Pulse Ox 97.9 F 97 18 121/79 95 02/25/17 07:49 02/25/17 09:38 02/25/17 07:49 02/25/17 07:49 02/25/17 09:38 General appearance: Present: mild distress, A&O X 3, answers questions appropriately - Respiratory Respiratory exam: Present: CTAB (coarse breath sounds B/L with mild wheezing at bases). Absent: accessory muscle use, rales, rhonchi, wheezes - Cardiovascular Cardiovascular exam: Present: RRR, +S1, +S2. Absent: diastolic murmur, gallop, rubs, systolic murmur - GI/Abdominal GI/Abdominal exam: Present: normal bowel sounds, soft, no peritoneal signs. Absent: distended, tenderness Internal Medicine: Result - Labs CBC & Chem 7: 02/25/17 05:37 02/25/17 05:37 Labs: Short CBC 02/25/17 Range/Units 05:37 WBC 18.1 H (4.3-11.1) K/mcL Hgb 8.7 L (12.9-16.9) g/dL Hct 28.3 L (37.5-50.1) % Plt Count 179 (140-400) K/mcL Neutrophils # 16.1 H (1.6-8.9) K/mcL BMP 02/24/17 02/25/17 17:38 05:37 Sodium 135 L 137 Potassium 4.0 4.6 H Chloride 104 106 Carbon Dioxide 23 26 BUN 21 19 Creatinine 1.31 H 1.00 Glucose 462 H 132 H Calcium 7.4 L 7.9 L - ABG Interpretation ABG results: PT/INR, D-dimer PT 17.5 Seconds (9.4-12.1) H 02/24/17 05:10 Consult Discharge Plan - Plan Referrals: Bre Cohn MD [Partnered Physician] - 03/04/17 11:00 am ([facility] IS OUT OF TOWN) Tawanda Chi MD [Primary Care Provider] - ([facility] IS OUT OF TOWN)
--- NOTE | 2017-02-25 17:29 | Neurology - Consult Note ---
Date of Encounter: 02/25/17 Time of Encounter: 17:24 Assessment and Plan (1) Difficulty balancing when standing Current Visit: Yes Status: Acute At this juncture I am unable to explain this gentleman's difficulty balancing on a primary neurologic basis. The small infarct identified on the CT scans, as well as the MRI of the brain is not acute, and the location of these infarcts would not be expected to cause balance difficulties particularly since he does not really have any weakness associated. I see no evidence of proprioceptive disorder that would indicate a sensory ataxia, or posterior column disorder. I see no evidence of dysautonomia. I see no evidence of central nervous system inflammatory or infectious process. I see no evidence of labyrinthine disorder. No evidence of Guillain-Chattaroy or brainstem disorder. I suspect that initially admitted been due to orthostasis. However now perhaps he may have a mild bit of deconditioning since his not been very active lately. I would recommend increasing his activity tolerance perhaps PT and OT could be of some assistance in this regard. History of Present Illness HPI: Mr. Ruiz is a 56 year old male who is being seen for neurologic consultation secondary to complaints of dizziness and blurred vision. This gentleman has a host of chronic illnesses including COPD, diabetes mellitus, ischemic heart disease with an ejection fraction of 40%, and adrenal insufficiency. He is complaints of lightheadedness and dizziness particularly when he stands up. Symptoms do not seem to bother him as much whenever he seated. He denies diplopia at the moment. He denies hemiparesis. He does complain of intermittent paresthesias of the hands and feet. Denies any difficulty with sphincter tone. Denies any difficulty with swallowing. He denies headaches, denies confusion. He has been afebrile since admission. He has had a MRI scan of the head which does reveal evidence of an old infarcts in the head of the left caudate nucleus. There is another smaller old lacunar infarct in the right thalamus. Scattered deep white matter hyperintensities are identified. Upon admission blood pressure running about 60/40. Past Med Surg Social Fam HX - Past Medical History Medical history: COPD, coronary artery disease, hyperlipidemia, myocardial infarction Psychiatric history: no psych history - Past Surgical History Surgical History: angioplasty/stent, appendectomy - Social History Smoking Status: Current every day smoker Smokeless Tobacco Status: No Alcohol use: none Drug use: none Medications and Allergies Fluticasone/Vilanterol [Breo Ellipta 200-25 Mcg INH] 1 puff IH DAILY 12/11/16 [ History] Gabapentin [Neurontin] 600 mg PO TID 12/11/16 [History] Gemfibrozil [Lopid] 600 mg PO BIDWM 12/11/16 [History] Indomethacin 50 mg PO TID PRN 12/11/16 [History] Metformin HCl [Glucophage] 1,000 mg PO BID 12/11/16 [History] Omeprazole [PriLOSEC] 20 mg PO DAILY 12/11/16 [History] Umeclidinium [place] [Incruse Ellipta] 62.5 mcg IH DAILY 12/11/16 [History] Albuterol Neb [Proventil Neb] 2.5 mg IH 3-4XD PRN 12/17/16 [History] Albuterol Sulfate [Albuterol Inhaler] 2 puff IH Q4H PRN 12/17/16 [History] HYDROcodone/Acet 7.5/325 mg [[place] 7.5-325 mg] 1 tab PO Q6H PRN 12/17/16 [ History] Aspirin 81 mg PO DAILY #30 tab.chew 12/23/16 [Rx] Atorvastatin [Lipitor] 20 mg PO HS #30 tablet 12/23/16 [Rx] Clopidogrel [Plavix] 75 mg PO DAILY #30 tablet 12/23/16 [Rx] Nitroglycerin 0.4 mg SL Q5MIN PRN #30 tab.subl 12/23/16 [Rx] Potassium Chloride 10 meq PO DAILY #30 tab.er.prt 12/23/16 [Rx] Fluticasone Propionate Nasal [Flonase] 100 mcg NS DAILY #1 bottle 12/28/16 [Rx] Ipratropium/Albuterol Neb [Duoneb] 3 ml IH QIDR #100 inhsol 12/28/16 [Rx] Metoprolol XL (24 HR) Succ [Toprol Xl] 12.5 mg PO DAILY #30 tab.er.24h 12/28/16 [Rx] Montelukast [Singulair] 10 mg PO DAILY 02/23/17 [History] Spironolactone [Aldactone] 100 mg PO DAILY 02/23/17 [History] Allergies No Known Allergies Allergy (Verified 04/18/17 21:38) All Systems: A 10-system review of systems was performed and is negative for pertinent findings except as documented above in the HPI. Review of Systems: 10 point review of system is consistent with the history of present illness and otherwise negative. Physical Examination - Vital Signs Vital Signs: Initial Vital Signs Temp Pulse Resp BP Pulse Ox 97.3 F L 98 20 60/42 98 02/22/17 21:34 02/22/17 21:34 02/22/17 21:34 02/22/17 21:34 02/22/17 21:34 - Neurologic Detailed motor examination: full strength in all major muscle groups Motor examination - right side: 5/5: deltoids, biceps, triceps, wrist flexion, wrist extension, radar mechanic, hip flexors, tibialis Anterior, quadriceps, toe extension (EHL), plantarflexion Motor examination - left side: 5/5: deltoids, biceps, triceps, wrist flexion, wrist extension, hip flexors, radar mechanic, quadriceps, tibialis Anterior, toe extension (EHL), plantarflexion Detailed sensory examination: other (There is no loss of proprioception in the small joints in the toes.) Reflexes: Biceps: 2+, Triceps: 2+, Brachioradialis: 2+, Patella: 2+, Achilles: 2 + Mental Status Examination: awake, alert, oriented to person, oriented to place, oriented to time, follows commands appropriately, answers questions appropriately, no agnosia, no aphasia, no aproxia, opens eyes to voice, makes eye contact Cranial nerve examination: PERRL, EOMI, visual galloway intact, corneal reflexes brisk symmetrically, sensory to face intact, mastication intact, no facial asymmetry is present, no dysarthria, hearing is intact symmetrically, soft palate elevates bilaterally upon phonation, gag reflex intact, flexes SCM and trapezius muscles symmetrically with full power, tongue protrudes midline, no atrophy or facial fasiculations present Cerebellar examination: no dysmetria, performs finger to nose and heel to carlos symmetrically without ataxia, no gait ataxia (He does have a bit of ataxia upon standing and walking.), no truncal ataxia, no difficulty with rapid alternating movements Results - Laboratory Findings CBC and BMP: 02/25/17 05:37 02/25/17 05:37 Abnormal lab findings: Abnormal lab results WBC 18.1 K/mcL (4.3-11.1) H 02/25/17 05:37 RBC 3.20 M/mcL (4.19-5.50) L 02/25/17 05:37 Hgb 8.7 g/dL (12.9-16.9) L 02/25/17 05:37 Hct 28.3 % (37.5-50.1) L 02/25/17 05:37 MCH 27.2 pg (28.0-33.3) L 02/25/17 05:37 MCHC 30.7 g/dL (31.6-35.5) L 02/25/17 05:37 RDW 15.9 % (11.5-14.5) H 02/25/17 05:37 Neutrophils # 16.1 K/mcL (1.6-8.9) H 02/25/17 05:37 Nucleated RBCs/100 WBC 0.2 /100 WBC (0) H 02/25/17 05:37 PT 17.5 Seconds (9.4-12.1) H 02/24/17 05:10 Potassium 4.6 mEq/L (3.5-4.5) H 02/25/17 05:37 Glucose 132 mg/dL (70-99) H 02/25/17 05:37 POC Glucose 317 (58-89) H 02/25/17 11:49 Calcium 7.9 mg/dL (8.6-10.8) L 02/25/17 05:37 Ionized Calcium 1.05 mmol/L (1.15-1.35) L 02/25/17 05:37 Urine Clarity Cloudy (Clear) A 02/22/17 22:15 Urine Bilirubin Small (Negative) H 02/22/17 22:15 Ur Squamous Epith Cells Many per lpf (None-Few) H 02/22/17 22:15 Stool Occult Blood Positive (Negative) A 02/22/17 23:50 Consult Discharge Plan - Plan Referrals: Bre Cohn MD [Partnered Physician] - 03/04/17 11:00 am (DR. CHAPMAN IS OUT OF TOWN) Tawanda Chapman MD [Primary Care Provider] - ([facility] IS OUT OF TOWN)
--- NOTE | 2017-02-25 17:38 | Oncology Inp Consult Note ---
Date of Encounter: 02/26/17 Time of Encounter: 17:36 Assessment and Plan (1) Leukocytosis Status: Acute Assessment and plan: Chronic. of unclear etiology. We will obtain a flow cytometry and the BCR/ABL analysis. Qualifiers: Leukocytosis type: unspecified Qualified Code(s): D72.829 - Elevated white blood cell count, unspecified (2) Anemia Status: Acute Assessment and plan: Could be related to similar process driving leukocytosis. Rule out nutritional deficiency. Qualifiers: Qualified Code(s): D64.9 - Anemia, unspecified (3) Adrenal insufficiency Status: Acute Assessment and plan: Management as per endocrinology and primary service. - Data of Consult Consult date: 02/25/17 Requesting Physician: Anaya Lezama MD Primary Care Provider: Tawanda Chapman MD - Consult Narrative Reason for consult: Leukocytosis and Anemia History of present illness: Mr. Ruiz is a 56 year gentleman with a past medical history significant for interstitial lung disease, pulmonary hypertension, carotid artery disease status post CAD s/p [facility] (12/22/2016) with stent to LAD, and CHF who was admitted to the hospital with hypotension. He had initially presented on account of lightheadedness with near-syncope and complaint of weakness over the last 2 months. In the emergency room he was found to be hypotensive with a blood pressure of 60s/40s. Lab workup revealed a magnesium level of less than 0.7. He was diagnosed with adrenal insufficiency after he was noted to have low morning cortisol level and an inappropriate response to ACTH stimulation test. He also had multiple electrolyte abnormalities from volume depletion and diuretic use. Review of his blood workup revealed that he had had a chronic leukocytosis. CBC obtained on 02/25/2017 revealed a white blood cell count of 18.1. Review of his history shows that there is elevation in white blood cell count dates back to 2013 when was as high as 19.2. Differential is mainly segmented neutrophils of 89.1% with an absolute neutrophil count of 16,000. Hemoglobin is also low at 8.7 with MCV of 88.4 and platelet count is normal 179. Patient is on home oxygen on a part of being chronically mildly short of breath. He is presently at his baseline. He denies continuous steroid use. Past Med Surg Social Fam HX - Past Medical History Medical history: COPD, coronary artery disease, hyperlipidemia, myocardial infarction Psychiatric history: no psych history - Past Surgical History Surgical History: angioplasty/stent, appendectomy - Social History Smoking Status: Current every day smoker Smokeless Tobacco Status: No Alcohol use: none Drug use: none Medications and Allergies Fluticasone/Vilanterol [Breo Ellipta 200-25 Mcg INH] 1 puff IH DAILY 12/11/16 [ History] Gabapentin [Neurontin] 600 mg PO TID 12/11/16 [History] Gemfibrozil [Lopid] 600 mg PO BIDWM 12/11/16 [History] Indomethacin 50 mg PO TID PRN 12/11/16 [History] Metformin HCl [Glucophage] 1,000 mg PO BID 12/11/16 [History] Omeprazole [PriLOSEC] 20 mg PO DAILY 12/11/16 [History] Umeclidinium [place] [Incruse Ellipta] 62.5 mcg IH DAILY 12/11/16 [History] Albuterol Neb [Proventil Neb] 2.5 mg IH 3-4XD PRN 12/17/16 [History] Albuterol Sulfate [Albuterol Inhaler] 2 puff IH Q4H PRN 12/17/16 [History] HYDROcodone/Acet 7.5/325 mg [[place] 7.5-325 mg] 1 tab PO Q6H PRN 12/17/16 [ History] Aspirin 81 mg PO DAILY #30 tab.chew 12/23/16 [Rx] Atorvastatin [Lipitor] 20 mg PO HS #30 tablet 12/23/16 [Rx] Clopidogrel [Plavix] 75 mg PO DAILY #30 tablet 12/23/16 [Rx] Nitroglycerin 0.4 mg SL Q5MIN PRN #30 tab.subl 12/23/16 [Rx] Potassium Chloride 10 meq PO DAILY #30 tab.er.prt 12/23/16 [Rx] Fluticasone Propionate Nasal [Flonase] 100 mcg NS DAILY #1 bottle 12/28/16 [Rx] Ipratropium/Albuterol Neb [Duoneb] 3 ml IH QIDR #100 inhsol 12/28/16 [Rx] Metoprolol XL (24 HR) Succ [Toprol Xl] 12.5 mg PO DAILY #30 tab.er.24h 12/28/16 [Rx] Montelukast [Singulair] 10 mg PO DAILY 02/23/17 [History] Spironolactone [Aldactone] 100 mg PO DAILY 02/23/17 [History] Allergies No Known Allergies Allergy (Verified 02/22/17 21:38) All systems: reviewed and no additional remarkable complaints except as stated ( as per HPI) Oncology - Exam - Constitutional Vitals: Temp Pulse Resp BP Pulse Ox 97.8 F 98 18 133/89 99 02/25/17 16:43 02/25/17 17:02 02/25/17 16:43 02/25/17 16:43 02/25/17 17:02 General appearance: average body habitus Exam: Oxygen by nasal cannula. - Head Head exam: Present: atraumatic, normal inspection - Eye Eye exam: Present: EOMI - ENT ENT exam: Present: mucous membranes moist, normal exam, normal external ear exam - Neck Neck exam: Present: normal inspection. Absent: lymphadenopathy - Respiratory Respiratory exam: Present: CTAB, wheezes - Cardiovascular Cardiovascular exam: Present: RRR, +S1, +S2 - GI/Abdominal GI/Abdominal exam: Present: soft. Absent: rebound, rigid, tenderness - Extremities Exam Extremities exam: Present: pedal edema - Neurological Exam Neurological exam: Present: altered, oriented X3 - Psychiatric Psychiatric exam: Present: normal mood Oncology - Results - Labs Labs: Short CBC 02/25/17 Range/Units 05:37 WBC 18.1 H (4.3-11.1) K/mcL Hgb 8.7 L (12.9-16.9) g/dL Hct 28.3 L (37.5-50.1) % Plt Count 179 (140-400) K/mcL Neutrophils # 16.1 H (1.6-8.9) K/mcL BMP 02/24/17 02/25/17 17:38 05:37 Sodium 135 L 137 Potassium 4.0 4.6 H Chloride 104 106 Carbon Dioxide 23 26 BUN 21 19 Creatinine 1.31 H 1.00 Glucose 462 H 132 H Calcium 7.4 L 7.9 L Consult Discharge Plan - Plan Referrals: Bre Cohn MD [Partnered Physician] - 03/04/17 11:00 am (DR. CHAPMAN IS OUT OF TOWN) Tawanda Chapman MD [Primary Care Provider] - ([facility] IS OUT OF TOWN)
[2017-02-25 17:58] LABS: BUN/Creatinine Ratio 18 (6-26); Blood Urea Nitrogen 20 mg/dL (8-26); Calcium 8.1 mg/dL (8.6-10.8); Carbon Dioxide 23 mEq/L (19-29); Chloride 106 mEq/L (98-109); Glucose 249 mg/dL (70-99); Osmolality,Calculated 295 (280-300); Potassium 4.7 mEq/L (3.5-4.5); Sodium 137 mEq/L (136-145); eGFR For African Americans > 60 (> 60); eGFR For Non-African Americans > 60 (> 60)
[2017-02-25 18:35] LABS: % Iron Saturation 3 % (20-55); Iron 16 mcg/dL (65-175); Transferrin 340 mg/dL (174-364)
[2017-02-25 18:56] LABS: Ferritin 25 ng/ml (22-275)
[2017-02-25 19:09] LABS: Folate 6.5 ng/mL (7.0-31.4)
[2017-02-25] MEDS ORDERED: Calcium Gluconate 3,000 MG in D5% in Water 250 ML IVPB ONE (19:10)
[2017-02-26 05:20] LABS: Ionized Calcium 1.23 mmol/L (1.15-1.35)
[2017-02-26 05:27] LABS: Basophils % 0.2 %; Eosinophils # 0.1 K/mcL (0.0-0.6); Eosinophils % 0.3 %; Hematocrit 28.7 % (37.5-50.1); Hemoglobin 8.6 g/dL (12.9-16.9); Immature Granulocytes % 0.5 % (0-4); Lymphocytes # 2.2 K/mcL (0.6-4.6); Lymphocytes % 13.1 %; Mean Corpuscular Hemoglobin 26.6 pg (28.0-33.3); Mean Corpuscular Volume 88.9 fL (83.0-100.0); Mean Platelet Volume 10.4 fL (9.4-12.4); Monocytes # 1.6 K/mcL (0.0-1.3); Monocytes % 9.4 %; Nucleated Red Blood Cells 0.2 /100 WBC (0); Platelet Count 211 K/mcL (140-400); Red Blood Count 3.23 M/mcL (4.19-5.50); Red Cell Distribution Width 15.9 % (11.5-14.5); Segmented Neutrophils % 76.5 %
[2017-02-26] MEDS: *HR* Heparin 5,000 UNIT/ML VIAL SQ SCH ×2 (05:31→18:24)
[2017-02-26 05:35] LABS: BUN/Creatinine Ratio 18 (6-26); Blood Urea Nitrogen 20 mg/dL (8-26); Calcium 8.8 mg/dL (8.6-10.8); Carbon Dioxide 30 mEq/L (19-29); Chloride 107 mEq/L (98-109); Glucose 74 mg/dL (70-99); Magnesium 1.5 mg/dL (1.6-2.6); Osmolality,Calculated 295 (280-300); Potassium 4.7 mEq/L (3.5-4.5); Sodium 142 mEq/L (136-145); eGFR For African Americans > 60 (> 60); eGFR For Non-African Americans > 60 (> 60)
[2017-02-26 05:41] LABS: INR 1.3; Prothrombin Time 13.8 Seconds (9.4-12.1)
[2017-02-26] MEDS ORDERED: Hydrocortisone Sodium Succ 100 MG/2 ML VIAL IVP SCH ×2 (08:00→10:16)
[2017-02-26] MEDS: Insulin LISPRO 300 UNITS/3 ML VIAL SQ SCH ×4 (08:09→21:22)
[2017-02-26] MEDS: Fluticasone Propionate Nasal 50 MCG/SPRAY BOTTLE NS SCH (09:13)
[2017-02-26] MEDS: Magnesium Oxide 400 MG TABLET PO SCH ×2 (09:13→21:21)
[2017-02-26] MEDS: (Incruse Ellipta] 62.5 MCG) IH SCH (09:13)
[2017-02-26] MEDS: (Breo Ellipta 200-25 Mcg Inh) IH SCH (09:13)
[2017-02-26] MEDS: Aspirin 81 MG TAB.CHEW PO SCH (09:14)
[2017-02-26] MEDS: *HR* HYDROcodone/Acet 7.5/325 mg TABLET PO PRN (09:14)
[2017-02-26] MEDS: Gabapentin 300 MG CAPSULE PO SCH ×3 (09:14→21:21)
[2017-02-26] MEDS ORDERED: Magnesium Sulfate 2 GM in D5% in Water 100 ML IVPB ONE (10:20)
--- NOTE | 2017-02-26 10:28 | Internal Med Progress Note ---
Date of Encounter: 02/26/17 Time of Encounter: 10:27 - Assessment and plan (1) Dizziness Current Visit: Yes Status: Chronic Assessment and plan: Patient presented with chronic dizziness and near syncope for the last few weeks. Improved today. 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 MRI brain shows no new infarcts. Neurology consult appreciated, no neurological cause for dizziness and possibly deconditioning. PT/OT consults. Fall precautions. (2) Leukocytosis Current Visit: Yes Status: Chronic Assessment and plan: Uncertain etiology. Hematology consulted for further workup, consult appreciated. Qualifiers: Leukocytosis type: unspecified Qualified Code(s): D72.829 - Elevated white blood cell count, unspecified (3) Adrenal insufficiency Current Visit: Yes Status: Acute Assessment and plan: Patient presents with dizziness, generalized weakness and unexplained hypotension. Noted to have low morning cortisol level and in appropriate response to ACTH stimulation test. Has been started on IV hydrocortisone after discussing with endocrinology at [facility]. We will change steroids to oral hydrocortisone. ACTH level noted to be normal, suggestive of primary adrenal insufficiency. Blood pressure is improved. Outpatient endocrinology follow-up for further workup. (4) Hypomagnesemia Current Visit: Yes Status: Acute Assessment and plan: Replace with IV magnesium sulfate. (5) Acute kidney injury Current Visit: Yes Status: Resolved (6) Hypotension Current Visit: Yes Status: Resolved Qualifiers: Hypotension type: unspecified hypotension type Qualified Code(s): I95.9 - Hypotension, unspecified (7) Hypocalcemia Current Visit: Yes Status: Resolved Assessment and plan: Improved with IV calcium gluconate. (8) Hyperkalemia Current Visit: Yes Status: Resolved (9) Congestive heart failure (CHF) Current Visit: Yes Status: Chronic Assessment and plan: We will restart low-dose spironolactone and Lasix along with metoprolol. Supplemental oxygen and supportive care. Qualifiers: Congestive heart failure type: combined Congestive heart failure chronicity : chronic Qualified Code(s): I50.42 - Chronic combined systolic (congestive) and diastolic (congestive) heart failure (10) Diabetes mellitus type 2 in nonobese Current Visit: Yes Status: Chronic Assessment and plan: Patient is noted to have steroid-induced hyperglycemia. Continue basal insulin and sliding scale insulin. Diabetic diet. Patient is noted to be noncompliant with diabetic diet and fluid restriction. health promotion educator consult. (11) Interstitial lung disease Current Visit: Yes Status: Chronic (12) Pulmonary hypertension Current Visit: Yes Status: Chronic (13) Atrial fibrillation Current Visit: Yes Status: Chronic Assessment and plan: Currently rate controlled. Restart metoprolol. Not on chronic anticoagulation due to bleeding complications in the past. Qualifiers: Atrial fibrillation type: paroxysmal Qualified Code(s): I48.0 - Paroxysmal atrial fibrillation - Subjective Interval history: Feels better today, sitting up at the edge of bed; improved dizziness, has occasional blurred vision; no focal weakness; - Constitutional Vitals: Temp Pulse Resp BP Pulse Ox 98.3 F 98 18 134/87 100 02/26/17 08:16 02/26/17 09:18 02/26/17 08:16 02/26/17 08:16 02/26/17 08:16 General appearance: Present: A&O X 3, answers questions appropriately - Respiratory Respiratory exam: Present: CTAB. Absent: accessory muscle use, rales, rhonchi, wheezes - Cardiovascular Cardiovascular exam: Present: RRR, +S1, +S2. Absent: diastolic murmur, gallop, rubs, systolic murmur - GI/Abdominal GI/Abdominal exam: Present: normal bowel sounds, soft, no peritoneal signs. Absent: distended, tenderness - Extremities Exam Extremities exam: Present: full ROM, pedal edema, warm, radial pulses palpable and symetrical. Absent: calf tenderness, cyanotic Internal Medicine: Result - Labs CBC & Chem 7: 02/26/17 04:10 02/26/17 04:10 Labs: Short CBC 02/26/17 Range/Units 04:10 WBC 17.0 H (4.3-11.1) K/mcL Hgb 8.6 L (12.9-16.9) g/dL Hct 28.7 L (37.5-50.1) % Plt Count 211 (140-400) K/mcL Neutrophils # 13.0 H (1.6-8.9) K/mcL BMP 02/25/17 02/26/17 17:31 04:10 Sodium 137 142 Potassium 4.7 H 4.7 H Chloride 106 107 Carbon Dioxide 23 30 H BUN 20 20 Creatinine 1.09 1.14 Glucose 249 H 74 Calcium 8.1 L 8.8 - ABG Interpretation ABG results: PT/INR, D-dimer PT 13.8 Seconds (9.4-12.1) H 02/26/17 04:10 - Impressions Impressions Head CT 02/25/17 12:30 IMPRESSION: 1. No acute intracranial abnormality. 2. Old infarct left basal ganglia extending into the left frontal lobe. D/ / Nick Strong MD / Nick Strong MD Interpreting Provider: Nick Strong MD Brain MRI 02/25/17 15:07 IMPRESSION: 1. No acute infarct or acute intracranial process identified. 2. Remote left basal ganglia infarct. 3. Mild chronic small vessel ischemic changes. D/ / David Palmer MD / David Palmer MD Interpreting Provider: David Palmer MD Consult Discharge Plan - Plan Referrals: Bre Cohn MD [Partnered Physician] - 03/04/17 11:00 am (DR. CHAPMAN IS OUT OF TOWN) Tawanda Chapman MD [Primary Care Provider] - ([facility] IS OUT OF TOWN)
[2017-02-26] MEDS: Furosemide 20 MG TABLET PO SCH (10:41)
--- NOTE | 2017-02-26 13:43 | Venous Imaging Report ---
LE Venous Duplex Patient Name:Hai Ruiz Order Number:[id number] Procedure Date:02/25/2017 Date:8Age:56 yrs Gender:Male Location:[facility] Room #: 2N06 Prepleater:Evelin Dillon Referring MD:Letty Ryan MD health information managers:Tawanda Chi MD Reading MD:Romeo Enriquez MD Primary Indications:pedal edema Secondary Indications: Risk Factors Yes/No Anticoagulants Yes Impressions: Bilateral lower extremity: normal superficial and deep exam. Recommendations: After imaging the patient returned to their room. Findings Venous Duplex Results: Right: Venous imaging of the lower extremity reveals full patency and normal vessel compressibility of the right distal iliac, right common femoral, right superficial femoral, right popliteal, right posterior tibial, right peroneal, right great saphenous and right lesser saphenous. Doppler signals in the evaluated veins were normal. Left: Venous imaging of the lower extremity reveals full patency and normal vessel compressibility of the left distal iliac, left common femoral, left superficial femoral, left popliteal, left posterior tibial, left peroneal, left great saphenous and left lesser saphenous. Doppler signals in the evaluated veins were normal. Prior Study: No prior study available for comparison. Lower Extremity Venous Duplex Side Vein Compress Spontaneous Flow Augment Diameter (cm) Depth (cm) Right Distal Iliac Normal Yes Phasic Yes Right Common Femoral Normal Yes Phasic Yes Right Superficial Femoral Normal Yes Phasic Yes Right Popliteal Normal Yes Phasic Yes Right Posterior Tibial Normal Yes Phasic Yes Right Peroneal Normal Yes Phasic Yes Right Great Saphenous Normal Yes Phasic Yes Right Lesser Saphenous Normal Yes Phasic Yes Left Distal Iliac Normal Yes Phasic Yes Left Common Femoral Normal Yes Phasic Yes Left Superficial Femoral Normal Yes Phasic Yes Left Popliteal Normal Yes Phasic Yes Left Posterior Tibial Normal Yes Phasic Yes Left Peroneal Normal Yes Phasic Yes Left Great Saphenous Normal Yes Phasic Yes Left Lesser Saphenous Normal Yes Phasic Yes Updated by Romeo Enriquez MD on 02/26/2017 1:36:44 PM electronically signed on 02/26/2017 1:37:29 PM with status of Final
[2017-02-26] MEDS ORDERED: Hydrocortisone 10 MG TABLET PO ONE (17:30)
[2017-02-26] MEDS: Albuterol 2.5 MG/3 ML NEBULIZER IH PRN (18:39)
[2017-02-26] MEDS: Hydrocortisone 10 MG TABLET PO SCH (18:46)
[2017-02-26] MEDS: Insulin DETEMIR 100 UNIT/ML X5UNITS SQ SCH (21:24)
[2017-02-27] MEDS: *HR* HYDROcodone/Acet 7.5/325 mg TABLET PO PRN ×4 (03:16→21:22)
[2017-02-27] MEDS: *HR* LORazepam 0.5 MG TABLET PO PRN ×2 (03:19→19:34)
[2017-02-27 04:49] LABS: Basophils % 0.1 %; Eosinophils % 0.1 %; Hematocrit 26.8 % (37.5-50.1); Hemoglobin 8.1 g/dL (12.9-16.9); Immature Granulocytes % 0.6 % (0-4); Lymphocytes # 1.5 K/mcL (0.6-4.6); Lymphocytes % 10.9 %; Mean Corpuscular HGB Conc 30.2 g/dL (31.6-35.5); Mean Corpuscular Hemoglobin 26.4 pg (28.0-33.3); Mean Corpuscular Volume 87.3 fL (83.0-100.0); Mean Platelet Volume 10.1 fL (9.4-12.4); Monocytes % 7.5 %; Neutrophils # 10.8 K/mcL (1.6-8.9); Nucleated Red Blood Cells 0.3 /100 WBC (0); Platelet Count 205 K/mcL (140-400); Red Blood Count 3.07 M/mcL (4.19-5.50); Segmented Neutrophils % 80.8 %
[2017-02-27 05:03] LABS: BUN/Creatinine Ratio 21 (6-26); Blood Urea Nitrogen 21 mg/dL (8-26); Calcium 8.4 mg/dL (8.6-10.8); Carbon Dioxide 28 mEq/L (19-29); Chloride 105 mEq/L (98-109); Glucose 188 mg/dL (70-99); Magnesium 1.3 mg/dL (1.6-2.6); Osmolality,Calculated 300 (280-300); Potassium 4.7 mEq/L (3.5-4.5); Sodium 141 mEq/L (136-145); eGFR For African Americans > 60 (> 60); eGFR For Non-African Americans > 60 (> 60)
[2017-02-27] MEDS: *HR* Heparin 5,000 UNIT/ML VIAL SQ SCH ×2 (05:39→18:34)
[2017-02-27] MEDS ORDERED: Magnesium Sulfate 2 GM in D5% in Water 100 ML IVPB ONE (08:42)
[2017-02-27] MEDS: Metoprolol XL (24 HR) Succ 25 MG TAB.ER.24H PO SCH (09:06)
[2017-02-27] MEDS: Aspirin 81 MG TAB.CHEW PO SCH (09:06)
[2017-02-27] MEDS: Hydrocortisone 10 MG TABLET PO SCH ×2 (09:06→18:30)
[2017-02-27] MEDS: Furosemide 20 MG TABLET PO SCH (09:06)
[2017-02-27] MEDS: Gabapentin 300 MG CAPSULE PO SCH ×3 (09:06→21:22)
[2017-02-27] MEDS: Magnesium Oxide 400 MG TABLET PO SCH ×3 (09:07→21:22)
[2017-02-27] MEDS: Fluticasone Propionate Nasal 50 MCG/SPRAY BOTTLE NS SCH (09:08)
[2017-02-27] MEDS: (Breo Ellipta 200-25 Mcg Inh) IH SCH (09:09)
[2017-02-27] MEDS: (Incruse Ellipta] 62.5 MCG) IH SCH (09:09)
[2017-02-27] MEDS: Insulin DETEMIR 100 UNIT/ML X5UNITS SQ SCH ×2 (09:13→21:22)
[2017-02-27] MEDS: Insulin LISPRO 300 UNITS/3 ML VIAL SQ SCH ×4 (09:14→21:22)
--- NOTE | 2017-02-27 09:55 | Internal Med Progress Note ---
Date of Encounter: 02/27/17 Time of Encounter: 09:54 - Assessment and plan (1) Dizziness Current Visit: Yes Status: Resolved Assessment and plan: Noted to be much improved. Cardiology and neurology workup negative. Physical therapy evaluation pending. Fall precautions. (2) Leukocytosis Current Visit: Yes Status: Chronic Assessment and plan: Uncertain etiology. Hematology consulted for further workup, consult appreciated. Qualifiers: Leukocytosis type: unspecified Qualified Code(s): D72.829 - Elevated white blood cell count, unspecified (3) Adrenal insufficiency Current Visit: Yes Status: Acute Assessment and plan: Patient presents with dizziness, generalized weakness and unexplained hypotension. Noted to have low morning cortisol level and in appropriate response to ACTH stimulation test. Has been started on IV hydrocortisone after discussing with endocrinology at [facility]. Currently on oral hydrocortisone 40 mg in a.m. and 20 mg in PM. ACTH level noted to be normal, suggestive of primary adrenal insufficiency. Blood pressure is improved. Outpatient endocrinology follow-up for further workup. (4) Hypomagnesemia Current Visit: Yes Status: Acute Assessment and plan: Replace with IV magnesium sulfate. Increase oral magnesium oxide to 3 times a day. (5) Acute kidney injury Current Visit: Yes Status: Resolved (6) Hypotension Current Visit: Yes Status: Resolved Qualifiers: Hypotension type: unspecified hypotension type Qualified Code(s): I95.9 - Hypotension, unspecified (7) Hypocalcemia Current Visit: Yes Status: Resolved (8) Hyperkalemia Current Visit: Yes Status: Resolved (9) Congestive heart failure (CHF) Current Visit: Yes Status: Chronic Assessment and plan: Continue low-dose spironolactone and Lasix along with metoprolol. Supplemental oxygen and supportive care. Qualifiers: Congestive heart failure type: combined Congestive heart failure chronicity : chronic Qualified Code(s): I50.42 - Chronic combined systolic (congestive) and diastolic (congestive) heart failure (10) Diabetes mellitus type 2 in nonobese Current Visit: Yes Status: Chronic Assessment and plan: Patient is noted to have steroid-induced hyperglycemia. Blood sugars noted to be improving. Continue basal insulin and sliding scale insulin. Diabetic diet. Patient is noted to be noncompliant with diabetic diet and fluid restriction. special educator consult. (11) Interstitial lung disease Current Visit: Yes Status: Chronic (12) Pulmonary hypertension Current Visit: Yes Status: Chronic (13) Atrial fibrillation Current Visit: Yes Status: Chronic Assessment and plan: Currently rate controlled. On metoprolol. Not on chronic anticoagulation due to bleeding complications in the past. Qualifiers: Atrial fibrillation type: paroxysmal Qualified Code(s): I48.0 - Paroxysmal atrial fibrillation - Subjective Interval history: Improving, able to stand up and walk a few steps without help, no dizziness, nausea, chest pain or dyspnea; - Constitutional Vitals: Temp Pulse Resp BP Pulse Ox 98.2 F 94 16 138/84 97 02/27/17 07:09 02/27/17 07:09 02/27/17 07:09 02/27/17 07:09 02/27/17 07:09 General appearance: Present: A&O X 3, answers questions appropriately - Respiratory Respiratory exam: Present: CTAB. Absent: accessory muscle use, rales, rhonchi, wheezes - Cardiovascular Cardiovascular exam: Present: RRR, +S1, +S2. Absent: diastolic murmur, gallop, rubs, systolic murmur - GI/Abdominal GI/Abdominal exam: Present: normal bowel sounds, soft, no peritoneal signs. Absent: distended, tenderness - Extremities Exam Extremities exam: Present: full ROM, pedal edema, warm, radial pulses palpable and symetrical. Absent: calf tenderness, cyanotic Internal Medicine: Result - Labs CBC & Chem 7: 02/27/17 04:29 02/27/17 04:29 Labs: Short CBC 02/27/17 Range/Units 04:29 WBC 13.3 H (4.3-11.1) K/mcL Hgb 8.1 L (12.9-16.9) g/dL Hct 26.8 L (37.5-50.1) % Plt Count 205 (140-400) K/mcL Neutrophils # 10.8 H (1.6-8.9) K/mcL BMP 02/27/17 04:29 Sodium 141 Potassium 4.7 H Chloride 105 Carbon Dioxide 28 BUN 21 Creatinine 1.00 Glucose 188 H Calcium 8.4 L - ABG Interpretation ABG results: PT/INR, D-dimer PT 13.8 Seconds (9.4-12.1) H 02/26/17 04:10 Consult Discharge Plan - Plan Referrals: Bre Cohn MD [Partnered Physician] - 03/04/17 11:00 am (DR. CHAPMAN IS OUT OF TOWN)
[2017-02-27] MEDS: Albuterol 2.5 MG/3 ML NEBULIZER IH PRN (18:00)
--- NOTE | 2017-02-27 18:26 | Oncology Inp Progress Note ---
Date of Encounter: 02/26/17 Time of Encounter: 10:00 (1) Leukocytosis Current Visit: Yes Status: Acute Assessment and plan: Chronic. of unclear etiology. Awaiting flow cytometry and the BCR/ABL analysis. Qualifiers: Leukocytosis type: unspecified Qualified Code(s): D72.829 - Elevated white blood cell count, unspecified (2) Anemia Current Visit: Yes Status: Acute Assessment and plan: Could be related to similar process driving leukocytosis. Work up sent. Awaiting results. Qualifiers: Qualified Code(s): D64.9 - Anemia, unspecified (3) Adrenal insufficiency Current Visit: Yes Status: Acute Assessment and plan: Management as per endocrinology and primary service. Oncology: Subj Interval history: No acute events noted overnight. Patient with no new symptoms. - Constitutional Vitals: Vital Signs Temp Pulse Resp BP Pulse Ox 02/27/17 18:01 16 94 02/27/17 15:36 97.6 F 83 16 134/86 98 02/27/17 11:15 98.0 F 90 16 120/79 94 02/27/17 07:09 98.2 F 94 16 138/84 97 02/27/17 03:12 97.7 F 101 18 130/87 96 02/26/17 22:19 98 F 114 20 124/74 94 02/26/17 18:42 18 91 Intake and Output 02/27/17 02/27/17 02/27/17 07:59 15:59 23:59 Intake Total 280 / 280 Output Total 425 / 425 300 / 300 Balance -425 / -425 -20 / -20 Intake: Oral 280 / 280 Output: Urine 425 / 425 300 / 300 Other: Meal Lunch Percent of Meal Consumed 100% Weight 80.921 kg Blood Glucose* 177 254 202 Patient Weight 02/27/17 23:59 Weight 80.921 kg General appearance: no acute distress Exam: oxygen by nasal cannula - Head Head exam: Present: normal inspection - Eye Eye exam: Present: EOMI, normal appearance - ENT ENT exam: Present: mucous membranes moist, normal exam - Neck Neck exam: Absent: lymphadenopathy, tenderness - Respiratory Respiratory exam: Present: CTAB, wheezes - Cardiovascular Cardiovascular exam: Present: RRR, +S1, +S2, +S3 - GI/Abdominal GI/Abdominal exam: Present: soft. Absent: organomegaly, rebound, rigid, tenderness - Extremities Exam Extremities exam: Present: pedal edema - Neurological Exam Neurological exam: Present: alert, oriented X3 Oncology: Obj Data - Labs CBC & Chem 7: 02/27/17 04:29 02/27/17 04:29 Labs: Laboratory Results - last 24 hr 02/26/17 02/26/17 02/26/17 12:25 16:51 21:20 WBC RBC Hgb Hct MCV MCH MCHC RDW Plt Count MPV Immature Gran % Seg Neutrophils % Lymphocytes % Monocytes % Eosinophils % Basophils % Neutrophils # Lymphocytes # Monocytes # Eosinophils # Basophils # Nucleated RBCs/100 WBC Sodium Potassium Chloride Carbon Dioxide BUN Creatinine Est GFR ( Amer) Est GFR (Non-Af Amer) BUN/Creatinine Ratio Glucose POC Glucose 189 H 353 H 243 H Calculated Osmolality Calcium Magnesium 02/26/17 02/27/17 02/27/17 22:18 04:29 04:29 WBC 13.3 H RBC 3.07 L Hgb 8.1 L Hct 26.8 L MCV 87.3 MCH 26.4 L MCHC 30.2 L RDW 16.0 H Plt Count 205 MPV 10.1 Immature Gran % 0.6 Seg Neutrophils % 80.8 Lymphocytes % 10.9 Monocytes % 7.5 Eosinophils % 0.1 Basophils % 0.1 Neutrophils # 10.8 H Lymphocytes # 1.5 Monocytes # 1.0 Eosinophils # 0.0 Basophils # 0.0 Nucleated RBCs/100 WBC 0.3 H Sodium 141 Potassium 4.7 H Chloride 105 Carbon Dioxide 28 BUN 21 Creatinine 1.00 Est GFR ( Amer) > 60 Est GFR (Non-Af Amer) > 60 BUN/Creatinine Ratio 21 Glucose 188 H POC Glucose 211 H Calculated Osmolality 300 Calcium 8.4 L Magnesium 1.3 L 02/27/17 02/27/17 02/27/17 07:12 11:17 16:03 WBC RBC Hgb Hct MCV MCH MCHC RDW Plt Count MPV Immature Gran % Seg Neutrophils % Lymphocytes % Monocytes % Eosinophils % Basophils % Neutrophils # Lymphocytes # Monocytes # Eosinophils # Basophils # Nucleated RBCs/100 WBC Sodium Potassium Chloride Carbon Dioxide BUN Creatinine Est GFR ( Amer) Est GFR (Non-Af Amer) BUN/Creatinine Ratio Glucose POC Glucose 177 H 254 H Calculated Osmolality Calcium Magnesium 1.9 02/27/17 16:42 WBC RBC Hgb Hct MCV MCH MCHC RDW Plt Count MPV Immature Gran % Seg Neutrophils % Lymphocytes % Monocytes % Eosinophils % Basophils % Neutrophils # Lymphocytes # Monocytes # Eosinophils # Basophils # Nucleated RBCs/100 WBC Sodium Potassium Chloride Carbon Dioxide BUN Creatinine Est GFR ( Amer) Est GFR (Non-Af Amer) BUN/Creatinine Ratio Glucose POC Glucose 202 H Calculated Osmolality Calcium Magnesium - ABG Interpretation ABG results: PT/INR, D-dimer PT 13.8 Seconds (9.4-12.1) H 02/26/17 04:10 Consult Discharge Plan - Plan Referrals: Bre Cohn MD [Partnered Physician] - 03/04/17 11:00 am (DR. CHAPMAN IS OUT OF TOWN)
--- NOTE | 2017-02-27 18:39 | Oncology Inp Progress Note ---
Date of Encounter: 02/27/17 Time of Encounter: 19:34 (1) Leukocytosis Current Visit: Yes Status: Acute Assessment and plan: Chronic. of unclear etiology. Awaiting flow cytometry and the BCR/ABL analysis. Qualifiers: Leukocytosis type: unspecified Qualified Code(s): D72.829 - Elevated white blood cell count, unspecified (2) Anemia Current Visit: Yes Status: Acute Assessment and plan: Mixed picture. Iron and folate deficiency which could explain why his MCV was normal. Iron is low at 16, with a percentage saturation of 3% and ferritin of 25 folate is also low at 6.5. Stool occult blood test is positive. Patient will need a colonoscopy to rule out a colonic malignancy. If HB continues to drop, upper and lower scope should be done during this admission. Obtain SPEP, UPEP and serum free light chains to r/o multiple myeloma. IV Iron to be given in the outpatient setting. Start folate 1 mg po daily . Qualifiers: Anemia type: iron deficiency Iron deficiency anemia type: unspecified iron deficiency Qualified Code(s): D50.9 - Iron deficiency anemia, unspecified (3) Adrenal insufficiency Current Visit: Yes Status: Acute Assessment and plan: Management as per endocrinology and primary service. Oncology: Subj Interval history: Patient continues to feel light headed. No acute events overnight. - Constitutional Vitals: Vital Signs Temp Pulse Resp BP Pulse Ox 02/27/17 18:01 16 94 02/27/17 15:36 97.6 F 83 16 134/86 98 02/27/17 11:15 98.0 F 90 16 120/79 94 02/27/17 07:09 98.2 F 94 16 138/84 97 02/27/17 03:12 97.7 F 101 18 130/87 96 02/26/17 22:19 98 F 114 20 124/74 94 02/26/17 18:42 18 91 Intake and Output 02/27/17 02/27/17 02/27/17 07:59 15:59 23:59 Intake Total 280 / 280 Output Total 425 / 425 300 / 300 Balance -425 / -425 -20 / -20 Intake: Oral 280 / 280 Output: Urine 425 / 425 300 / 300 Other: Meal Lunch Percent of Meal Consumed 100% Weight 80.921 kg Blood Glucose* 177 254 202 Patient Weight 02/27/17 23:59 Weight 80.921 kg General appearance: average body habitus, no acute distress - Head Head exam: Present: normal inspection - Eye Eye exam: Present: EOMI, normal appearance - ENT ENT exam: Present: normal external ear exam, normal oropharynx - Neck Neck exam: Absent: lymphadenopathy, thyromegaly - Respiratory Respiratory exam: Present: CTAB. Absent: wheezes - Cardiovascular Cardiovascular exam: Present: RRR, +S1, +S2 - Extremities Exam Extremities exam: Present: pedal edema - Neurological Exam Neurological exam: Present: alert, oriented X3 - Psychiatric Psychiatric exam: Present: normal mood Oncology: Obj Data - Labs CBC & Chem 7: 02/27/17 04:29 02/27/17 04:29 Labs: Laboratory Results - last 24 hr 02/26/17 02/26/17 02/26/17 12:25 16:51 21:20 WBC RBC Hgb Hct MCV MCH MCHC RDW Plt Count MPV Immature Gran % Seg Neutrophils % Lymphocytes % Monocytes % Eosinophils % Basophils % Neutrophils # Lymphocytes # Monocytes # Eosinophils # Basophils # Nucleated RBCs/100 WBC Sodium Potassium Chloride Carbon Dioxide BUN Creatinine Est GFR ( Amer) Est GFR (Non-Af Amer) BUN/Creatinine Ratio Glucose POC Glucose 189 H 353 H 243 H Calculated Osmolality Calcium Magnesium 02/26/17 02/27/17 02/27/17 22:18 04:29 04:29 WBC 13.3 H RBC 3.07 L Hgb 8.1 L Hct 26.8 L MCV 87.3 MCH 26.4 L MCHC 30.2 L RDW 16.0 H Plt Count 205 MPV 10.1 Immature Gran % 0.6 Seg Neutrophils % 80.8 Lymphocytes % 10.9 Monocytes % 7.5 Eosinophils % 0.1 Basophils % 0.1 Neutrophils # 10.8 H Lymphocytes # 1.5 Monocytes # 1.0 Eosinophils # 0.0 Basophils # 0.0 Nucleated RBCs/100 WBC 0.3 H Sodium 141 Potassium 4.7 H Chloride 105 Carbon Dioxide 28 BUN 21 Creatinine 1.00 Est GFR ( Amer) > 60 Est GFR (Non-Af Amer) > 60 BUN/Creatinine Ratio 21 Glucose 188 H POC Glucose 211 H Calculated Osmolality 300 Calcium 8.4 L Magnesium 1.3 L 02/27/17 02/27/17 02/27/17 07:12 11:17 16:03 WBC RBC Hgb Hct MCV MCH MCHC RDW Plt Count MPV Immature Gran % Seg Neutrophils % Lymphocytes % Monocytes % Eosinophils % Basophils % Neutrophils # Lymphocytes # Monocytes # Eosinophils # Basophils # Nucleated RBCs/100 WBC Sodium Potassium Chloride Carbon Dioxide BUN Creatinine Est GFR ( Amer) Est GFR (Non-Af Amer) BUN/Creatinine Ratio Glucose POC Glucose 177 H 254 H Calculated Osmolality Calcium Magnesium 1.9 02/27/17 16:42 WBC RBC Hgb Hct MCV MCH MCHC RDW Plt Count MPV Immature Gran % Seg Neutrophils % Lymphocytes % Monocytes % Eosinophils % Basophils % Neutrophils # Lymphocytes # Monocytes # Eosinophils # Basophils # Nucleated RBCs/100 WBC Sodium Potassium Chloride Carbon Dioxide BUN Creatinine Est GFR ( Amer) Est GFR (Non-Af Amer) BUN/Creatinine Ratio Glucose POC Glucose 202 H Calculated Osmolality Calcium Magnesium - ABG Interpretation ABG results: PT/INR, D-dimer PT 13.8 Seconds (9.4-12.1) H 02/26/17 04:10 Consult Discharge Plan - Plan Referrals: Bre Cohn MD [Partnered Physician] - 03/04/17 11:00 am (DR. CHAPMAN IS OUT OF TOWN)
[2017-02-27 18:46] LABS: Sickle Cell Solubility NOT PERFORMED
[2017-02-27] MEDS: Folic Acid 1 MG TABLET PO SCH (19:34)
[2017-02-28] MEDS: *HR* Heparin 5,000 UNIT/ML VIAL SQ SCH ×2 (06:26→19:02)
[2017-02-28] MEDS: Metoprolol XL (24 HR) Succ 25 MG TAB.ER.24H PO SCH (08:16)
[2017-02-28] MEDS: Magnesium Oxide 400 MG TABLET PO SCH ×3 (08:17→21:31)
[2017-02-28] MEDS: Folic Acid 1 MG TABLET PO SCH (08:17)
[2017-02-28] MEDS: Gabapentin 300 MG CAPSULE PO SCH ×3 (08:17→21:30)
[2017-02-28] MEDS: Furosemide 20 MG TABLET PO SCH (08:17)
[2017-02-28] MEDS: Hydrocortisone 10 MG TABLET PO SCH ×2 (08:17→17:27)
[2017-02-28] MEDS: Insulin LISPRO 300 UNITS/3 ML VIAL SQ SCH ×4 (08:18→21:28)
[2017-02-28] MEDS: Aspirin 81 MG TAB.CHEW PO SCH (08:18)
[2017-02-28] MEDS: Fluticasone Propionate Nasal 50 MCG/SPRAY BOTTLE NS SCH (08:19)
--- NOTE | 2017-02-28 09:15 | Internal Med Progress Note ---
Date of Encounter: 02/28/17 Time of Encounter: 09:11 - Assessment and plan (1) Anemia Current Visit: Yes Status: Acute Assessment and plan: Patient is noted at least a 3 g drop in hemoglobin over 2 months. His hemoglobin was 9 at admission and is currently 8.1. Serum iron studies show low iron reserves. Also noted to have folic acid deficiency and has been started on Lara catheter and supplements. GI has been consulted to rule out occult GI bleed as a cause for iron deficiency anemia as he was noted to have positive stool occult blood. Consult appreciated, Patient is likely scheduled for EGD and colonoscopy tomorrow. Qualifiers: Anemia type: iron deficiency Iron deficiency anemia type: unspecified iron deficiency Qualified Code(s): D50.9 - Iron deficiency anemia, unspecified (2) Dizziness Current Visit: Yes Status: Resolved Assessment and plan: Noted to be much improved. Cardiology and neurology workup negative. Physical therapy evaluation pending. Fall precautions. (3) Leukocytosis Current Visit: Yes Status: Chronic Assessment and plan: Uncertain etiology. Hematology following for further workup, consult appreciated. Qualifiers: Leukocytosis type: unspecified Qualified Code(s): D72.829 - Elevated white blood cell count, unspecified (4) Adrenal insufficiency Current Visit: Yes Status: Acute Assessment and plan: Noted to have low morning cortisol level and in appropriate response to ACTH stimulation test. Has been started on IV hydrocortisone after discussing with endocrinology at [facility]. Currently on oral hydrocortisone 40 mg in a.m. and 20 mg in PM. ACTH level noted to be normal, suggestive of primary adrenal insufficiency. Blood pressure is improved. Outpatient endocrinology follow-up for further workup. (5) Hypomagnesemia Current Visit: Yes Status: Resolved Assessment and plan: Improved with magnesium sulfate supplements. (6) Acute kidney injury Current Visit: Yes Status: Resolved (7) Hypotension Current Visit: Yes Status: Resolved Qualifiers: Hypotension type: unspecified hypotension type Qualified Code(s): I95.9 - Hypotension, unspecified (8) Hypocalcemia Current Visit: Yes Status: Resolved (9) Hyperkalemia Current Visit: Yes Status: Resolved (10) Congestive heart failure (CHF) Current Visit: Yes Status: Chronic Assessment and plan: Continue low-dose spironolactone and Lasix along with metoprolol. Supplemental oxygen and supportive care. Qualifiers: Congestive heart failure type: combined Congestive heart failure chronicity : chronic Qualified Code(s): I50.42 - Chronic combined systolic (congestive) and diastolic (congestive) heart failure (11) Diabetes mellitus type 2 in nonobese Current Visit: Yes Status: Chronic Assessment and plan: Patient is noted to have steroid-induced hyperglycemia. Blood sugars noted to be improving. Continue basal insulin and sliding scale insulin. Diabetic diet. critical care educator consult. (12) Interstitial lung disease Current Visit: Yes Status: Chronic (13) Pulmonary hypertension Current Visit: Yes Status: Chronic (14) Atrial fibrillation Current Visit: Yes Status: Chronic Assessment and plan: Currently rate controlled. On metoprolol. Not on chronic anticoagulation due to bleeding complications in the past. Qualifiers: Atrial fibrillation type: paroxysmal Qualified Code(s): I48.0 - Paroxysmal atrial fibrillation - Subjective Interval history: No new complaints; no chest pain, dyspnea; persistent leg swelling; able to walk around in the room, no dizziness; - Constitutional Vitals: Temp Pulse Resp BP Pulse Ox 98.5 F 83 16 135/85 99 02/28/17 07:37 02/28/17 07:37 02/28/17 07:37 02/28/17 07:37 02/28/17 07:37 General appearance: Present: A&O X 3, answers questions appropriately - Respiratory Respiratory exam: Present: CTAB. Absent: accessory muscle use, rales, rhonchi, wheezes - Cardiovascular Cardiovascular exam: Present: irregular rhythm, +S1, +S2. Absent: diastolic murmur, gallop, rubs, systolic murmur - GI/Abdominal GI/Abdominal exam: Present: normal bowel sounds, soft, no peritoneal signs. Absent: distended, tenderness - Extremities Exam Extremities exam: Present: full ROM, pedal edema, warm, radial pulses palpable and symetrical. Absent: calf tenderness, cyanotic Internal Medicine: Result - Labs CBC & Chem 7: 02/27/17 04:29 02/27/17 04:29 - ABG Interpretation ABG results: PT/INR, D-dimer PT 13.8 Seconds (9.4-12.1) H 02/26/17 04:10 Consult Discharge Plan - Plan Referrals: Bre Cohn MD [Partnered Physician] - 03/04/17 11:00 am (DR. CHAPMAN IS OUT OF TOWN)
[2017-02-28] MEDS: Insulin DETEMIR 100 UNIT/ML X5UNITS SQ SCH ×2 (09:43→21:30)
[2017-02-28] MEDS: (Breo Ellipta 200-25 Mcg Inh) IH SCH (09:43)
[2017-02-28] MEDS: (Incruse Ellipta] 62.5 MCG) IH SCH (09:43)
[2017-02-28] MEDS: Nicotine 7 MG PATCH.TD24 TD SCH (16:09)
--- NOTE | 2017-02-28 16:10 | Gastroenterology Consult Note ---
<Mundo Baird - Last Filed: 02/28/17 16:07> Date of Encounter: 02/28/17 Time of Encounter: 12:50 ( ) - Assessment and plan (1) Leukocytosis Current Visit: Yes Status: Chronic Assessment and plan: Hematology following patient. Qualifiers: Leukocytosis type: unspecified Qualified Code(s): D72.829 - Elevated white blood cell count, unspecified (2) Anemia Current Visit: Yes Status: Acute Assessment and plan: Hgb 9 on admission, 8.1 this AM. Iron low at 16 and ferritin 25. Plan for EGD and colonoscopy tomorrow. Clear liquid diet today, no red or purple. NPO at midnight. If unable tolerate NuLytely please use MiraLAX prep. If not clear by 6 AM, give 2 tap water enemas. Continue to monitor CBC and transfuse PRBC as needed. Qualifiers: Anemia type: iron deficiency Iron deficiency anemia type: unspecified iron deficiency Qualified Code(s): D50.9 - Iron deficiency anemia, unspecified - Time Spent With Patient Total time spent is greater than 50% in coordination of care (as documented) at patient's floor/unit and/or counseling patient: GI History of Present Illness - Data of Consult Patient: new to practice Consult date: 02/28/17 Requesting Physician: Anaya Lezama MD - Consult Narrative Reason for consult: Anemia History of present illness: Mr. Ruiz is a 56 year old male with PMHx of COPD, CAD, HLD, NV who presented to the ED with weakness and near syncope which has been worsening over the past 2 months. He was hypotensive at home with SBP 70. In the ED he had SBP 60s and was given 2 liter fluid. He denied fever, chills, nausea, vomiting, diarrhea. Oncology was consulted due to leukocytosis dating back to 2013. Per Oncology, Iron and folate deficiency which could explain why his MCV was normal. Iron low at 16, with a percentage saturation of 3% and ferritin of 25, folate low at 6.5. FOBT positive. Patient will need a colonoscopy to rule out a colonic malignancy. If HB continues to drop, upper and lower scope should be done during this admission. Procedures: Colonoscopy 12/05/2002 Dr. Heath: Nonspecific inflammation. NSAIDs: ASA Anticoagulation: Plavix Past Med Surg Social Fam HX - Past Medical History Medical history: COPD, coronary artery disease, hyperlipidemia, myocardial infarction Psychiatric history: no psych history - Past Surgical History Surgical History: angioplasty/stent, appendectomy - Social History Smoking Status: Current every day smoker Smokeless Tobacco Status: No Alcohol use: none Drug use: none - Gastrointestinal Gastrointestinal: Present: as per HPI - Constitutional Constitutional: as per HPI - EENT Eyes: as per HPI Ears: Present: as per HPI Nose, mouth and throat: Present: as per HPI - Cardiovascular Cardiovascular ROS: Present: as per HPI - Respiratory Respiratory IM: Present: as per HPI - Genitourinary Genitourinary: Absent: change in color, Urinary frequency - Neurological ROS Neurological GI: Absent: as per HPI - Hematologic/Lymphatic Hematologic/Lymphatic pediatric: Absent: as per HPI - Musculoskeletal Musculoskeletal ROS GI: Absent: as per HPI - Integumentary Integumentary GI: Absent: as per HPI - Psychiatric ROS Psychiatric GI: Absent: as per HPI - Endocrine Endocrine IM: Absent: as per HPI - Constitutional Vitals: Temp Pulse Resp BP Pulse Ox 97.7 F 94 18 137/84 99 02/28/17 11:19 02/28/17 11:19 02/28/17 11:19 02/28/17 11:19 02/28/17 11:19 General appearance: Present: cooperative, A&O X 3, no acute distress, answers questions appropriately - Head Head exam: Present: atraumatic, normocephalic - Eye Eye exam: Present: normal appearance, sclera anicteric - ENT ENT exam: Present: mucous membranes dry - Neck Neck exam general surgery: Present: normal inspection, trachea midline - Respiratory Respiratory exam: Present: CTAB. Absent: rales, rhonchi - Cardiovascular Cardiovascular exam: Present: RRR, +S1, +S2 - GI/Abdominal GI/Abdominal exam: Present: soft, no peritoneal signs. Absent: distended, firm , guarding, tenderness - Rectal Rectal exam: Present: deferred - Extremities Exam Extremities exam: Present: warm - Neurological Exam Neurological exam: Present: no focal deficits - Psychiatric Psychiatric exam: Present: normal affect, normal mood - Skin Skin exam: Present: dry, intact, normal color, warm Results - Labs CBC & Chem 7: 02/27/17 04:29 02/27/17 04:29 Labs: Last Result Calcium 8.4 mg/dL (8.6-10.8) L 02/27/17 04:29 Iron 16 mcg/dL (65-175) L 02/25/17 18:10 % Saturation 3 % (20-55) L 02/25/17 18:10 Transferrin 340 mg/dL (174-364) 02/25/17 18:10 Ferritin 25 ng/ml (22-275) 02/25/17 18:10 Troponin I 0.01 ng/mL (0-0.03) 02/23/17 16:02 Vitamin B12 671 pg/mL (213-816) 02/25/17 18:10 Folate 6.5 ng/mL (7.0-31.4) L 02/25/17 18:10 Stool Occult Blood Positive (Negative) A 02/22/17 23:50 Entire Visit Hgb 8.1 g/dL (12.9-16.9) L 02/27/17 04:29 Hct 26.8 % (37.5-50.1) L 02/27/17 04:29 PT 13.8 Seconds (9.4-12.1) H 02/26/17 04:10 Ferritin 25 ng/ml (22-275) 02/25/17 18:10 Folate 6.5 ng/mL (7.0-31.4) L 02/25/17 18:10 - ABG ABG results: PT/INR, D-dimer PT 13.8 Seconds (9.4-12.1) H 02/26/17 04:10 Consult Discharge Plan - Plan Referrals: Bre Cohn MD [Partnered Physician] - 03/04/17 11:00 am (DR. CHAPMAN IS OUT OF TOWN) <Therese Encarnacion - Last Filed: 02/28/17 17:34> Date of Encounter: 02/28/17 Time of Encounter: 17:30 - Time Spent With Patient Total time spent is greater than 50% in coordination of care (as documented) at patient's floor/unit and/or counseling patient: GI History of Present Illness - Data of Consult Requesting Physician: Anaya Lezama MD - Consult Narrative History of present illness: Mr. Ruiz is a 56 year old male - Constitutional Vitals: Temp Pulse Resp BP Pulse Ox 97.7 F 94 18 137/84 99 02/28/17 11:19 02/28/17 11:19 02/28/17 11:19 02/28/17 11:19 02/28/17 11:19 Results - Labs CBC & Chem 7: 02/27/17 04:29 02/27/17 04:29 Labs: Last Result Calcium 8.4 mg/dL (8.6-10.8) L 02/27/17 04:29 Iron 16 mcg/dL (65-175) L 02/25/17 18:10 % Saturation 3 % (20-55) L 02/25/17 18:10 Transferrin 340 mg/dL (174-364) 02/25/17 18:10 Ferritin 25 ng/ml (22-275) 02/25/17 18:10 Troponin I 0.01 ng/mL (0-0.03) 02/23/17 16:02 Vitamin B12 671 pg/mL (213-816) 02/25/17 18:10 Folate 6.5 ng/mL (7.0-31.4) L 02/25/17 18:10 Stool Occult Blood Positive (Negative) A 02/22/17 23:50 Entire Visit Hgb 8.1 g/dL (12.9-16.9) L 02/27/17 04:29 Hct 26.8 % (37.5-50.1) L 02/27/17 04:29 PT 13.8 Seconds (9.4-12.1) H 02/26/17 04:10 Ferritin 25 ng/ml (22-275) 02/25/17 18:10 Folate 6.5 ng/mL (7.0-31.4) L 02/25/17 18:10 - ABG ABG results: PT/INR, D-dimer PT 13.8 Seconds (9.4-12.1) H 02/26/17 04:10 - Attending Attestation I examined this patient and my medical decision-making was reviewed with the FLOOR SERVICE WORKER SPRING/PA/Advanced Practice Nurse/Resident Physician. I agree with the documented findings, disposition and treatment plan as described except to the extent set forth below.
[2017-02-28] MEDS ORDERED: SODIUM CHLORIDE/NAHCO3/KCL/PEG 4,000 ML SOLN.RECON PO ONE (17:00)
[2017-02-28] MEDS: *HR* HYDROcodone/Acet 7.5/325 mg TABLET PO PRN (17:28)
[2017-02-28] MEDS: Albuterol 2.5 MG/3 ML NEBULIZER IH PRN (21:22)
[2017-02-28] MEDS: *HR* LORazepam 0.5 MG TABLET PO PRN (21:30)
[2017-03-01 03:58] LABS: Basophils % 0.2 %; Eosinophils % 0.2 %; Hematocrit 28.8 % (37.5-50.1); Hemoglobin 8.6 g/dL (12.9-16.9); Immature Granulocytes % 0.6 % (0-4); Lymphocytes # 1.9 K/mcL (0.6-4.6); Lymphocytes % 15.8 %; Mean Corpuscular HGB Conc 29.9 g/dL (31.6-35.5); Mean Corpuscular Hemoglobin 26.2 pg (28.0-33.3); Mean Corpuscular Volume 87.8 fL (83.0-100.0); Mean Platelet Volume 9.9 fL (9.4-12.4); Monocytes # 0.8 K/mcL (0.0-1.3); Monocytes % 6.2 %; Neutrophils # 9.4 K/mcL (1.6-8.9); Nucleated Red Blood Cells 0.2 /100 WBC (0); Platelet Count 198 K/mcL (140-400); Red Blood Count 3.28 M/mcL (4.19-5.50); Red Cell Distribution Width 16.3 % (11.5-14.5)
[2017-03-01] MEDS: *HR* HYDROcodone/Acet 7.5/325 mg TABLET PO PRN ×2 (04:05→19:30)
[2017-03-01] MEDS: *HR* LORazepam 0.5 MG TABLET PO PRN ×2 (04:05→21:10)
[2017-03-01] MEDS: *HR* Heparin 5,000 UNIT/ML VIAL SQ SCH ×2 (06:07→19:03)
[2017-03-01] MEDS: Furosemide 20 MG TABLET PO SCH (08:11)
[2017-03-01] MEDS: Magnesium Oxide 400 MG TABLET PO SCH ×3 (08:11→21:09)
[2017-03-01] MEDS: Aspirin 81 MG TAB.CHEW PO SCH (08:11)
[2017-03-01] MEDS: Gabapentin 300 MG CAPSULE PO SCH ×3 (08:12→21:09)
[2017-03-01] MEDS: Nicotine 7 MG PATCH.TD24 TD SCH (08:12)
[2017-03-01] MEDS: Metoprolol XL (24 HR) Succ 25 MG TAB.ER.24H PO SCH (08:12)
[2017-03-01] MEDS: Albuterol 2.5 MG/3 ML NEBULIZER IH PRN (08:15)
[2017-03-01] MEDS: (Incruse Ellipta] 62.5 MCG) IH SCH (08:20)
[2017-03-01] MEDS: (Breo Ellipta 200-25 Mcg Inh) IH SCH (08:20)
[2017-03-01] MEDS: Folic Acid 1 MG TABLET PO SCH (08:21)
[2017-03-01] MEDS: Hydrocortisone 10 MG TABLET PO SCH ×2 (08:21→19:03)
[2017-03-01] MEDS: Insulin LISPRO 300 UNITS/3 ML VIAL SQ SCH ×4 (08:27→21:10)
[2017-03-01 09:23] LABS: BUN/Creatinine Ratio 20 (6-26); Blood Urea Nitrogen 16 mg/dL (8-26); Calcium 9.1 mg/dL (8.6-10.8); Carbon Dioxide 32 mEq/L (19-29); Chloride 100 mEq/L (98-109); Glucose 111 mg/dL (70-99); Magnesium 1.6 mg/dL (1.6-2.6); Osmolality,Calculated 294 (280-300); Phosphorous 3.5 mg/dL (2.3-4.7); Potassium 3.9 mEq/L (3.5-4.5); Sodium 141 mEq/L (136-145); eGFR For African Americans > 60 (> 60); eGFR For Non-African Americans > 60 (> 60)
[2017-03-01] MEDS: Fluticasone Propionate Nasal 50 MCG/SPRAY BOTTLE NS SCH (11:04)
[2017-03-01] MEDS: Insulin DETEMIR 100 UNIT/ML X5UNITS SQ SCH ×2 (11:04→21:10)
[2017-03-01 11:50] LABS: Hemoglobin Capillary Electroph NOT PERFORMED
--- NOTE | 2017-03-01 13:28 | Internal Med Progress Note ---
Date of Encounter: 03/01/17 Time of Encounter: 13:26 - Assessment and plan (1) Anemia Current Visit: Yes Status: Acute Assessment and plan: Patient is noted at least a 3 g drop in hemoglobin over 2 months. His hemoglobin was 9 at admission and is currently 8.6. Serum iron studies show low iron reserves. Also noted to have folic acid deficiency and has been started on Folic acid supplements. GI consultation appreciated patient to undergo EGD and colonoscopy today Qualifiers: Anemia type: iron deficiency Iron deficiency anemia type: unspecified iron deficiency Qualified Code(s): D50.9 - Iron deficiency anemia, unspecified (2) Congestive heart failure (CHF) Current Visit: Yes Status: Chronic Assessment and plan: Continue low-dose spironolactone and Lasix along with metoprolol. Supplemental oxygen and supportive care. Qualifiers: Congestive heart failure type: combined Congestive heart failure chronicity : chronic Qualified Code(s): I50.42 - Chronic combined systolic (congestive) and diastolic (congestive) heart failure (3) Diabetes mellitus type 2 in nonobese Current Visit: Yes Status: Chronic Assessment and plan: FS within acceptable range Continue basal insulin and sliding scale insulin. continue to monitor FS and BG Diabetic diet. (4) Atrial fibrillation Current Visit: Yes Status: Chronic Assessment and plan: Currently rate controlled. On metoprolol. Not on chronic anticoagulation due to bleeding complications in the past. Qualifiers: Atrial fibrillation type: paroxysmal Qualified Code(s): I48.0 - Paroxysmal atrial fibrillation (5) Pulmonary hypertension Current Visit: Yes Status: Chronic (6) Leukocytosis Current Visit: Yes Status: Chronic Assessment and plan: Uncertain etiology. Hematology following for further workup, consult appreciated. Qualifiers: Leukocytosis type: unspecified Qualified Code(s): D72.829 - Elevated white blood cell count, unspecified (7) Adrenal insufficiency Current Visit: Yes Status: Acute Assessment and plan: Noted to have low morning cortisol level and in appropriate response to ACTH stimulation test. Has been started on IV hydrocortisone after discussing with endocrinology at [facility]. Currently on oral hydrocortisone 40 mg in a.m. and 20 mg in PM. ACTH level noted to be normal, suggestive of primary adrenal insufficiency. Outpatient endocrinology follow-up for further workup. (8) Dizziness Current Visit: Yes Status: Resolved Assessment and plan: Noted to be much improved. Cardiology and neurology workup negative. PT eval noted, no outpatient therapy recommended Fall precautions. (9) DVT prophylaxis Current Visit: No Status: Acute Assessment and plan: IPCD - Subjective Interval history: Pt seen and examined at bedside. Sitting in bed and denies any discomfort at this time. - Constitutional Vitals: Temp Pulse Resp BP Pulse Ox 98 F 78 16 139/84 99 03/01/17 11:40 03/01/17 11:40 03/01/17 11:40 03/01/17 11:40 03/01/17 11:40 General appearance: Present: A&O X 3, answers questions appropriately - Head Head exam: Present: atraumatic, normocephalic - Eye Eye exam: Present: normal appearance, conjuntiva pink, sclera anicteric - Respiratory Respiratory exam: Present: CTAB. Absent: accessory muscle use, rales, rhonchi, wheezes - Cardiovascular Cardiovascular exam: Present: RRR, +S1, +S2. Absent: diastolic murmur, gallop, rubs, systolic murmur - GI/Abdominal GI/Abdominal exam: Present: normal bowel sounds, soft, no peritoneal signs. Absent: distended, tenderness - Extremities Exam Extremities exam: Present: pedal edema (bilateral LE edema ), warm, radial pulses palpable and symetrical. Absent: calf tenderness - Neurological Exam Neurological exam: Present: alert, oriented X3 - Psychiatric Psychiatric exam: Present: normal affect, normal mood Internal Medicine: Result - Labs CBC & Chem 7: 03/01/17 03:41 03/01/17 08:45 Labs: Short CBC 03/01/17 Range/Units 03:41 WBC 12.2 H (4.3-11.1) K/mcL Hgb 8.6 L (12.9-16.9) g/dL Hct 28.8 L (37.5-50.1) % Plt Count 198 (140-400) K/mcL Neutrophils # 9.4 H (1.6-8.9) K/mcL BMP 03/01/17 08:45 Sodium 141 Potassium 3.9 Chloride 100 Carbon Dioxide 32 H BUN 16 Creatinine 0.79 Glucose 111 H Calcium 9.1 - ABG Interpretation ABG results: PT/INR, D-dimer PT 13.8 Seconds (9.4-12.1) H 02/26/17 04:10 - VTE Documentation of Mechanical Device: Graduated compression elastic hosiery Consult Discharge Plan - Plan Referrals: Bre Cohn MD [Partnered Physician] - 03/04/17 11:00 am (DR. CHAPMAN IS OUT OF TOWN)
[2017-03-01] MEDS ORDERED: *HR* Midazolam HCl 5 MG/5 ML VIAL IVP ONE (13:44)
[2017-03-01] MEDS ORDERED: *HR* FentaNYL (PF) 100 MCG/2 ML VIAL ONE (13:44)
[2017-03-01] MEDS ORDERED: 0.9 % Sodium Chloride 1,000 ML IVC SCH (14:00)
[2017-03-01] MEDS ORDERED: Tetracaine/Benzocaine/Butamben 200MG/SPRAY (100SPY/BOT) MM ONE (14:14)
[2017-03-01] MEDS ORDERED: Simethicone 40 MG/0.6 ML MLS IR ONE (14:14)
--- NOTE | 2017-03-01 14:14 | Pre-Sedation Evaluation ---
Pre-sedation evaluation - Pre-sedation checklist Date of procedure: 03/01/17 Procedure: egd, colonoscopy Recent Vitals: Last Vital Signs Temp 98 F 03/01/17 11:40 Pulse 84 03/01/17 13:53 Resp 18 03/01/17 13:53 BP 142/86 03/01/17 13:53 Pulse Ox 96 03/01/17 13:53 H&P (including ROS) documented in medical record: Yes Previous reaction to sedatives/anesthetics: Yes; explain in comment Dietary Status: NPO after Midnight Dentition: No loose teeth or bridges ASA Classification *see protocol: CLASS III-Severe systemic disease Plan of Care: Pt appropriate candidate for procedure/moderate/conscious sedation , Risks/benefits of procedure/sedation discussed w/ patient/family
[2017-03-01] MEDS: *HR* Midazolam HCl 5 MG/5 ML VIAL IVP PRN ×3 (17:30→17:42)
[2017-03-01] MEDS: *HR* FentaNYL (PF) 100 MCG/2 ML VIAL IVP PRN ×3 (17:30→17:42)
[2017-03-01 21:43] LABS: Kappa Qnt Free Light Chains 2.75 mg/dL (0.33-1.94); Lambda Qnt Free Light Chains 3.1 mg/dL (0.57-2.63)
[2017-03-02 04:21] LABS: Alpha 2 Globulin (PEP) 0.87 g/dL (0.48-1.05); Beta Globulin (PEP) 0.82 g/dL (0.48-1.10)
[2017-03-02] MEDS: *HR* LORazepam 0.5 MG TABLET PO PRN (04:57)
[2017-03-02] MEDS: *HR* HYDROcodone/Acet 7.5/325 mg TABLET PO PRN (04:57)
[2017-03-02] MEDS: *HR* Heparin 5,000 UNIT/ML VIAL SQ SCH (05:00)
[2017-03-02 06:48] LABS: Basophils % 0.1 %; Eosinophils # 0.1 K/mcL (0.0-0.6); Eosinophils % 0.4 %; Hematocrit 27.4 % (37.5-50.1); Hemoglobin 8.1 g/dL (12.9-16.9); Immature Granulocytes % 0.8 % (0-4); Lymphocytes # 1.2 K/mcL (0.6-4.6); Lymphocytes % 10.2 %; Mean Corpuscular HGB Conc 29.6 g/dL (31.6-35.5); Mean Corpuscular Hemoglobin 25.7 pg (28.0-33.3); Mean Platelet Volume 10.7 fL (9.4-12.4); Monocytes % 8.4 %; Neutrophils # 9.5 K/mcL (1.6-8.9); Nucleated Red Blood Cells 0.3 /100 WBC (0); Platelet Count 213 K/mcL (140-400); Red Blood Count 3.15 M/mcL (4.19-5.50); Red Cell Distribution Width 16.6 % (11.5-14.5); Segmented Neutrophils % 80.1 %
[2017-03-02 07:03] LABS: BUN/Creatinine Ratio 26 (6-26); Blood Urea Nitrogen 21 mg/dL (8-26); Calcium 8.6 mg/dL (8.6-10.8); Carbon Dioxide 32 mEq/L (19-29); Chloride 99 mEq/L (98-109); Glucose 300 mg/dL (70-99); Magnesium 1.2 mg/dL (1.6-2.6); Osmolality,Calculated 300 (280-300); Phosphorous 3.2 mg/dL (2.3-4.7); Potassium 3.9 mEq/L (3.5-4.5); Sodium 138 mEq/L (136-145); eGFR For African Americans > 60 (> 60); eGFR For Non-African Americans > 60 (> 60)
[2017-03-02] MEDS ORDERED: Magnesium Sulfate 2 GM in D5% in Water 100 ML IVPB ONE (08:01)
[2017-03-02] MEDS: Fluticasone Propionate Nasal 50 MCG/SPRAY BOTTLE NS SCH (08:12)
[2017-03-02] MEDS: (Breo Ellipta 200-25 Mcg Inh) IH SCH (08:13)
[2017-03-02] MEDS: Insulin LISPRO 300 UNITS/3 ML VIAL SQ SCH ×2 (08:13→11:52)
[2017-03-02] MEDS: (Incruse Ellipta] 62.5 MCG) IH SCH (08:13)
[2017-03-02] MEDS: Hydrocortisone 10 MG TABLET PO SCH (08:14)
[2017-03-02] MEDS: Insulin DETEMIR 100 UNIT/ML X5UNITS SQ SCH (08:14)
[2017-03-02] MEDS: Aspirin 81 MG TAB.CHEW PO SCH (08:14)
[2017-03-02] MEDS: Furosemide 20 MG TABLET PO SCH (08:14)
[2017-03-02] MEDS: Magnesium Oxide 400 MG TABLET PO SCH (08:15)
[2017-03-02] MEDS: Gabapentin 300 MG CAPSULE PO SCH (08:15)
[2017-03-02] MEDS: Folic Acid 1 MG TABLET PO SCH (08:15)
[2017-03-02] MEDS: Metoprolol XL (24 HR) Succ 25 MG TAB.ER.24H PO SCH (08:15)
[2017-03-02] MEDS: Nicotine 7 MG PATCH.TD24 TD SCH (08:15)
[2017-03-02 08:51] LABS: IFE Reflexed NOT DONE
[2017-03-02 11:17] VITALS: BP 119/75
--- NOTE | 2017-03-02 11:19 | Discharge Summary ---
Date of Encounter: 03/02/17 Time of Encounter: 11:17 - Discharge Diagnosis (1) Anemia Priority: Primary Status: Acute Qualifiers: Anemia type: iron deficiency Iron deficiency anemia type: unspecified iron deficiency Qualified Code(s): D50.9 - Iron deficiency anemia, unspecified (2) Congestive heart failure (CHF) Priority: Secondary Status: Chronic Qualifiers: Congestive heart failure type: combined Congestive heart failure chronicity : chronic Qualified Code(s): I50.42 - Chronic combined systolic (congestive) and diastolic (congestive) heart failure (3) Diabetes mellitus type 2 in nonobese Priority: Secondary Status: Chronic (4) Atrial fibrillation Priority: Secondary Status: Chronic Qualifiers: Atrial fibrillation type: paroxysmal Qualified Code(s): I48.0 - Paroxysmal atrial fibrillation (5) Pulmonary hypertension Priority: Secondary Status: Chronic (6) Leukocytosis Priority: Secondary Status: Chronic Qualifiers: Leukocytosis type: unspecified Qualified Code(s): D72.829 - Elevated white blood cell count, unspecified (7) Adrenal insufficiency Priority: Primary Status: Acute (8) Dizziness Priority: Secondary Status: Resolved (9) DVT prophylaxis Priority: Secondary Status: Acute - Discharge Medications Prescriptions: Furosemide [Lasix] 20 mg PO DAILY #30 tablet Hydrocortisone [Cortef] 20 mg PO HS #30 tablet Hydrocortisone [Cortef] 40 mg PO DAILY #30 tablet Spironolactone [Aldactone] 50 mg PO DAILY #30 tablet Home Medications: Fluticasone/Vilanterol [Breo Ellipta 200-25 Mcg INH] 1 puff IH DAILY 12/11/16 [ History] Gabapentin [Neurontin] 600 mg PO TID 12/11/16 [History] Gemfibrozil [Lopid] 600 mg PO BIDWM 12/11/16 [History] Metformin HCl [Glucophage] 1,000 mg PO BID 12/11/16 [History] Omeprazole [PriLOSEC] 20 mg PO DAILY 12/11/16 [History] Umeclidinium [place] [Incruse Ellipta] 62.5 mcg IH DAILY 12/11/16 [History] Albuterol Neb [Proventil Neb] 2.5 mg IH 3-4XD PRN 12/17/16 [History] Albuterol Sulfate [Albuterol Inhaler] 2 puff IH Q4H PRN 12/17/16 [History] HYDROcodone/Acet 7.5/325 mg [[place] 7.5-325 mg] 1 tab PO Q6H PRN 12/17/16 [ History] Aspirin 81 mg PO DAILY #30 tab.chew 12/23/16 [Rx] Atorvastatin [Lipitor] 20 mg PO HS #30 tablet 12/23/16 [Rx] Clopidogrel [Plavix] 75 mg PO DAILY #30 tablet 12/23/16 [Rx] Nitroglycerin 0.4 mg SL Q5MIN PRN #30 tab.subl 12/23/16 [Rx] Potassium Chloride 10 meq PO DAILY #30 tab.er.prt 12/23/16 [Rx] Fluticasone Propionate Nasal [Flonase] 100 mcg NS DAILY #1 bottle 12/28/16 [Rx] Ipratropium/Albuterol Neb [Duoneb] 3 ml IH QIDR #100 inhsol 12/28/16 [Rx] Metoprolol XL (24 HR) Succ [Toprol Xl] 12.5 mg PO DAILY #30 tab.er.24h 12/28/16 [Rx] Montelukast [Singulair] 10 mg PO DAILY 02/23/17 [History] Furosemide [Lasix] 20 mg PO DAILY #30 tablet 03/02/17 [Rx] Hydrocortisone [Cortef] 20 mg PO HS #30 tablet 03/02/17 [Rx] Hydrocortisone [Cortef] 40 mg PO DAILY #30 tablet 03/02/17 [Rx] Spironolactone [Aldactone] 50 mg PO DAILY #30 tablet 03/02/17 [Rx] Allergies/Adverse Reactions: Allergies No Known Allergies Allergy (Verified 02/22/17 21:38) Date of admission: 02/23/17 17:21 Primary care physician: Tawanda Chapman MD Consults: 02/25/17 12:17 Consult to Oncology Hematology [CONS] Routine Consulting Provider: Letty Ryan I Reason for Consult: Leukocytosis Call Completed: Yes 02/25/17 15:07 Consult to Neurology [CONS] Routine Consulting Provider: Neurology [facility] Reason for Consult: Persistent dizziness, blurred vision Call Completed: Yes 02/26/17 10:15 Consult to Physical Therapy [CONS] Routine Comment: Evaluate, develop and implement POC OT [Consult to Occupational Therapy] [CONS] Routine Comment: Evaluate, develop and implement POC 02/26/17 15:25 Consult to Wood Shop Teacher [CONS] Routine Comment: 02/28/17 08:40 Consult to Gastroenterology [CONS] Routine Consulting Provider: Barbara Willis Reason for Consult: Anemia, possible GI bleed Call Completed: Yes Discharging clinician: Tricia Schrader Anticipated date of discharge: 03/02/17 - Patient Status Disposition: Home, Self-Care Condition: Good Functional capacity at discharge: independent ambulation Overall status at discharge: patient is back to baseline - Discharge Instructions Follow Up With: Bre Cohn MD [Partnered Physician] - 03/04/17 11:00 am (DR. CHAPMAN IS OUT OF TOWN) Additional Instructions: Please follow-up with your primary care physician within 5 days after her discharge from the hospital. Please follow up with trailer steerer, oncologist within 1 week after discharge from the hospital. Hydrocortisone has been added to her home medications, please take this medication as prescribed. Spironolactone dose has been changed to 50 mg once daily, please take this medication as prescribed Lasix 20 mg once daily has been added to her medication list, please take this medication as prescribed Please resume all other home medications as prescribed by your primary care physician - Diet and Activity Activity: resume usual activities as tolerated, wear oxygen at all times Diet: diabetic diet, low salt diet Hospital course: Mr. Ruiz is a 56 year old male with complicated medical history including interstitial lung disease, pulmonary hypertension, CAD s/p [facility] (12/22/2016) with stent to LAD, and CHF (systolic and diastolic) who presented to the ER this evening with complaint of weakness, and near syncope which has been worsening over the past two months. He was admitted with the diagnosis of adrenal insufficiency, hypocalcemia, hypotension. His ACTH and cortisol levels were consistent with an adrenal insufficiency due to which he was started on hydrocortisone. He responded appropriately to therapy. His hospital course was further complicated with persistent leukocytosis for which oncology was consulted. She was to continue further oncology workup as outpatient. He was also noted to have a drop in H&H concerning for GI bleed due to positive stool occult blood test. GI was consulted and patient underwent EGD and colonoscopy. EGD showed gastritis and colonoscopy reported diverticulosis, no acute bleeding was reported. At this time patient is hemodynamically stable with H&H within acceptable range. He will be discharged to home with follow-up with PCP , oncology, and endocrinology. Patient demonstrates understanding of his diagnosis and agrees with discharge care plan - Time Spent with Patient Total time spent providing and/or coordinating discharge services: Greater than 30 minutes - Constitutional Vitals: Temp Pulse Resp BP Pulse Ox 97.7 F 91 18 123/80 98 03/02/17 06:57 03/02/17 06:57 03/02/17 06:57 03/02/17 06:57 03/02/17 06:57 General appearance: Present: A&O X 3, answers questions appropriately - Head Head exam: Present: atraumatic, normocephalic - Eye Eye exam: Present: normal appearance, conjuntiva pink, sclera anicteric - Respiratory Respiratory exam: Present: CTAB. Absent: accessory muscle use, rales, rhonchi, wheezes - Cardiovascular Cardiovascular exam: Present: RRR, +S1, +S2. Absent: diastolic murmur, gallop, rubs, systolic murmur - GI/Abdominal GI/Abdominal exam: Present: normal bowel sounds, soft, no peritoneal signs. Absent: distended, tenderness - Extremities Exam Extremities exam: Present: warm, radial pulses palpable and symetrical. Absent : calf tenderness, cyanotic, pedal edema - Neurological Exam Neurological exam: Present: alert, oriented X3 - Psychiatric Psychiatric exam: Present: normal affect, normal mood - VTE Documentation of Mechanical Device: Graduated compression elastic hosiery
[2017-03-02 13:47] LABS: Urine Collection Duration RANDOM hr; Urine Collection Volume RANDOM mL
[2017-03-04 11:57] LABS: BCR-ABL1 Specimen Source NOT SPECIFIED
[2017-03-07 09:53] LABS: AGL Flow Result See EMR document.
== END 2017-03-02 13:40 | disposition home or self-care (01) | DRG 644 ==
LOC: EMEROO 21:12 → 2NNU 21:12 → SUATTDRO 02-23 17:21 → 2ANU 02-26 13:13
PROVIDERS: ADMIT Internal Medicine; ATTEND Internal Medicine
PROC: ENDOEBX (2017-03-01 13:30)

== ENCOUNTER 2017-03-19 10:08 | Inpatient (IN) ==
[2017-03-19] MEDS ORDERED: Ipratropium/Albuterol Neb 3 ML IH ONE (10:23)
[2017-03-19] MEDS ORDERED: methylPREDNISolone 125 MG/2 ML VIAL IVP ONE (10:23)
--- NOTE | 2017-03-19 10:34 | Emergency Department Note ---
START Narrative - START START: I examined this patient and my medical decision-making was reviewed with the CREDIT CHECKER/PA/Advanced Practice Nurse/Resident Physician. I agree with the documented findings, disposition and treatment plan as described except to the extent set forth below. ED attending: Patient's emergency medicine resident Dr. Santana. Please see copy of this note for H&P evaluation and management and ED disposition. We both had independent [id number] time in contact with this patient. Briefly: 56-year-old male smoker COPD on supplemental home oxygen presents to the emergency department with several days of fever sputum increasing shortness of breath. Patient is already on oral steroids and oral levofloxacin by his primary care provider for at least 3 days. Patient is tachycardic slightly tachypnea and hypoxic. Mild to moderate distress. Coarse breath sounds bilaterally with expiratory wheezes. Patient is given ibuprofen for likely clinical pneumonia and COPD flare. Admission likely. Patient did not double DuoNeb. Provided 45 minutes critical care service for this patient. Disposition pending.
[2017-03-19 10:59] LABS: Basophils % 0.2 %; Eosinophils % 0.2 %; Hematocrit 31.3 % (37.5-50.1); Hemoglobin 9.2 g/dL (12.9-16.9); Immature Granulocytes % 0.7 % (0-4); Lymphocytes # 1.2 K/mcL (0.6-4.6); Lymphocytes % 7.2 %; Mean Corpuscular HGB Conc 29.4 g/dL (31.6-35.5); Mean Corpuscular Hemoglobin 24.4 pg (28.0-33.3); Mean Platelet Volume 11.4 fL (9.4-12.4); Monocytes % 5.7 %; Neutrophils # 14.4 K/mcL (1.6-8.9); Nucleated Red Blood Cells 0.3 /100 WBC (0); Platelet Count 204 K/mcL (140-400); Red Blood Count 3.77 M/mcL (4.19-5.50); Red Cell Distribution Width 17.5 % (11.5-14.5)
[2017-03-19 11:12] LABS: BUN/Creatinine Ratio 15 (6-26); Blood Urea Nitrogen 13 mg/dL (8-26); Calcium 8.2 mg/dL (8.6-10.8); Carbon Dioxide 29 mEq/L (19-29); Chloride 97 mEq/L (98-109); Glucose 256 mg/dL (70-99); Osmolality,Calculated 297 (280-300); Sodium 139 mEq/L (136-145); eGFR For African Americans > 60 (> 60); eGFR For Non-African Americans > 60 (> 60)
[2017-03-19] MEDS ORDERED: *HR* HYDROcodone/Acet 7.5/325 mg TABLET PO ONE (11:32)
--- NOTE | 2017-03-19 11:34 | Emergency Department Note ---
Disposition Clinical Impression: Community acquired pneumonia Disposition: Home, Self-Care Condition: Good Time of Disposition: 17:07 General Adult HPI - General Chief complaint: ED Shortness of Breath/Dyspnea Stated complaint: ANDREY Time Seen by Provider: 03/19/17 10:15 Source: patient Limitations: no limitations Nursing Notes Reviewed: Yes Vital Signs Reviewed: Yes - History of Present Illness HPI Narrative: Four-day history of increased cough and shortness of breath. Has been tried on outpatient Levaquin and steroids with no relief. Denies actual fever but does report chilling. Denies any chest pain. Pain Scale: 7 - Related Data Home Medications Medication Instructions Recorded Confirmed Fluticasone/Vilanterol [Breo 1 puff IH DAILY 12/11/16 03/19/17 Ellipta 200-25 Mcg INH] Gabapentin [Neurontin] 600 mg PO TID 12/11/16 03/19/17 Gemfibrozil [Lopid] 600 mg PO BIDWM 12/11/16 03/19/17 Metformin HCl [Glucophage] 1,000 mg PO BID 12/11/16 03/19/17 Omeprazole [PriLOSEC] 20 mg PO DAILY 12/11/16 03/19/17 Umeclidinium [place] [Incruse 62.5 mcg IH DAILY 12/11/16 03/19/17 Ellipta] Albuterol Neb [Proventil Neb] 2.5 mg IH 3-4XD PRN 12/17/16 03/19/17 Albuterol Sulfate [Albuterol 2 puff IH Q4H PRN 12/17/16 03/19/17 Inhaler] HYDROcodone/Acet 7.5/325 mg [[place] 1 tab PO Q6H PRN 12/17/16 03/19/17 7.5-325 mg] Montelukast [Singulair] 10 mg PO DAILY 02/23/17 03/19/17 Furosemide [Lasix] 20 - 40 mg PO DAILY PRN 03/19/17 03/19/17 Spironolactone [Aldactone] 100 mg PO DAILY 03/19/17 03/19/17 Previous Rx's Medication Instructions Recorded Aspirin 81 mg PO DAILY #30 tab.chew 12/23/16 Atorvastatin [Lipitor] 20 mg PO HS #30 tablet 12/23/16 Clopidogrel [Plavix] 75 mg PO DAILY #30 tablet 12/23/16 Nitroglycerin 0.4 mg SL Q5MIN PRN #30 tab.subl 12/23/16 Potassium Chloride 10 meq PO DAILY #30 tab.er.prt 12/23/16 Fluticasone Propionate Nasal 100 mcg NS DAILY #1 bottle 12/28/16 [Flonase] Ipratropium/Albuterol Neb [Duoneb] 3 ml IH QIDR #100 inhsol 12/28/16 Metoprolol XL (24 HR) Succ [Toprol 12.5 mg PO DAILY #30 tab.er.24h 12/28/16 Xl] Hydrocortisone [Cortef] 20 mg PO HS #30 tablet 03/02/17 Hydrocortisone [Cortef] 40 mg PO DAILY #30 tablet 03/02/17 Allergies Allergy/AdvReac Type Severity Reaction Status Date / Time No Known Allergies Allergy Verified 02/22/17 21:38 All systems ED: reviewed and negative except as stated. Constitutional: Denies: fever, chills ENT ED: Denies: throat pain, congestion Cardiovascular: Denies: chest pain, palpitations, dyspnea on exertion, syncope Respiratory: Reports: cough, dyspnea (Four-day history), sputum production ( Yellow-green). Denies: wheezes Gastrointestinal: Denies: abdominal pain, nausea, vomiting, diarrhea Musculoskeletal: Denies: back pain, neck pain Integumentary: Denies: rash Neurological: Denies: headache, weakness Past Medical History - Past Medical History Medical history: Reports: COPD, coronary artery disease, hyperlipidemia, myocardial infarction Surgical history: Reports: angioplasty/stent, appendectomy Psychiatric history: Reports: anxiety - Social History Smoking Status: Current some day smoker Smokeless Tobacco Status: No Alcohol use: Reports: none Drug use: Reports: none Physical Exam - General Limitations: no limitations General appearance: alert, in distress (Mild respiratory) - Head Head exam: atraumatic, normocephalic - Eye Eye exam: Present: normal appearance, PERRL, EOMI. Absent: scleral icterus - ENT ENT exam: normal exam, normal oropharynx, mucous membranes moist - Neck Neck exam: Present: normal inspection, full ROM - Chest Chest inspection: Present: normal inspection, symmetric chest wall rise. Absent : tenderness - Respiratory Respiratory exam: Present: wheezes (Diffusely). Absent: respiratory distress - Cardiovascular Cardiovascular exam: Present: regular rate, normal rhythm, normal heart sounds - Abdominal Exam Abdominal exam: Present: soft, Non-Tender, normal bowel sounds - Extremities Exam Extremities exam: Present: normal inspection, full ROM, normal capillary refill. Absent: pedal edema - Back Exam Back exam: Present: normal inspection, full ROM. Absent: tenderness - Neurological Exam Neurological exam: Present: alert, oriented X3 - Psychiatric Psychiatric exam: Present: normal affect, normal mood - Skin Skin exam: Present: warm, dry, intact, normal color. Absent: rash, cyanosis, diaphoresis Course Course Narrative: Male patient presenting to the emergency department with a complaint of cough with yellow sputum. States that this began on Tuesday 4 days ago. States that he has been on Levaquin and steroids for the past week. He states that his doctor prescribed this after he had a well checkup. He denies any fevers at home but states he has had chills. He has no other complaints at this time. His lung sounds or wheezing throughout we will get him a DuoNeb while he is here. We will do a x-ray and get labs. He denies any chest pain at this time however he does appear short of breath. He is on 2 L of oxygen which he wears at home for COPD. Does have a history of CHF and has bilateral lower leg edema. He states this is getting better as his "fluid pills" have been changed. The pitting edema is up to mid tibia. His heart tones are normal abdomen is soft nontender. - Reevaluation(s) Reevaluation #1: Patient chest x-ray is consistent with his symptoms of pneumonia. He has failed outpatient management of this. He's been on antibiotics several times as well as steroids. We will admit him to the hospital for IV antibiotics. Time: 13:26 Reevaluation #2: Patient was not initially tachycardic on evaluation. He is now. We will give a small fluid bolus and withhold the rest due to his history of CHF. We will also get a lactate. Time: 13:33 - Consultations Consultation #1: Dr Johnston Accepted Pt in stable condition Time: 13:44 Vital Signs Temperature 97.6 F 03/19/17 10:09 Pulse Rate 70 03/19/17 10:09 Respiratory Rate 24 03/19/17 10:09 Blood Pressure 135/90 03/19/17 10:09 O2 Sat by Pulse Oximetry 98 03/19/17 10:09 Temperature 97.6 F 03/19/17 10:09 Pulse Rate 120 03/19/17 15:32 Respiratory Rate 20 03/19/17 15:32 Blood Pressure 116/84 03/19/17 15:32 O2 Sat by Pulse Oximetry 93 03/19/17 15:32 Oxygen Delivery Oxygen Delivery Nasal Cannula Medical Decision Making - Lab Data Result diagrams: 03/19/17 10:51 03/19/17 10:51 Lab Results 03/19/17 03/19/17 03/19/17 Range/Units 10:51 10:51 10:51 WBC 16.8 H (4.3-11.1) K/mcL RBC 3.77 L (4.19-5.50) M/mcL Hgb 9.2 L (12.9-16.9) g/dL Hct 31.3 L (37.5-50.1) % MCV 83.0 (83.0-100.0) fL MCH 24.4 L (28.0-33.3) pg MCHC 29.4 L (31.6-35.5) g/dL RDW 17.5 H (11.5-14.5) % Plt Count 204 (140-400) K/mcL MPV 11.4 (9.4-12.4) fL Immature Gran % 0.7 (0-4) % Seg Neutrophils % 86.0 % Lymphocytes % 7.2 % Monocytes % 5.7 % Eosinophils % 0.2 % Basophils % 0.2 % Neutrophils # 14.4 H (1.6-8.9) K/mcL Lymphocytes # 1.2 (0.6-4.6) K/mcL Monocytes # 1.0 (0.0-1.3) K/mcL Eosinophils # 0.0 (0.0-0.6) K/mcL Basophils # 0.0 (0.0-0.2) K/mcL Nucleated RBCs/100 WBC 0.3 H (0) /100 WBC Sodium 139 (136-145) mEq/L Potassium 4.0 (3.5-4.5) mEq/L Chloride 97 L (98-109) mEq/L Carbon Dioxide 29 (19-29) mEq/L BUN 13 (8-26) mg/dL Creatinine 0.85 (0.72-1.25) mg/dL Est GFR ( Amer) > 60 (> 60) Est GFR (Non-Af Amer) > 60 (> 60) BUN/Creatinine Ratio 15 (6-26) Glucose 256 H (70-99) mg/dL Calculated Osmolality 297 (280-300) Calcium 8.2 L (8.6-10.8) mg/dL Troponin I 0.05 H* (0-0.03) ng/mL B-Natriuretic Peptide (0-100) pg/mL 03/19/17 Range/Units 10:51 WBC (4.3-11.1) K/mcL RBC (4.19-5.50) M/mcL Hgb (12.9-16.9) g/dL Hct (37.5-50.1) % MCV (83.0-100.0) fL MCH (28.0-33.3) pg MCHC (31.6-35.5) g/dL RDW (11.5-14.5) % Plt Count (140-400) K/mcL MPV (9.4-12.4) fL Immature Gran % (0-4) % Seg Neutrophils % % Lymphocytes % % Monocytes % % Eosinophils % % Basophils % % Neutrophils # (1.6-8.9) K/mcL Lymphocytes # (0.6-4.6) K/mcL Monocytes # (0.0-1.3) K/mcL Eosinophils # (0.0-0.6) K/mcL Basophils # (0.0-0.2) K/mcL Nucleated RBCs/100 WBC (0) /100 WBC Sodium (136-145) mEq/L Potassium (3.5-4.5) mEq/L Chloride (98-109) mEq/L Carbon Dioxide (19-29) mEq/L BUN (8-26) mg/dL Creatinine (0.72-1.25) mg/dL Est GFR ( Amer) (> 60) Est GFR (Non-Af Amer) (> 60) BUN/Creatinine Ratio (6-26) Glucose (70-99) mg/dL Calculated Osmolality (280-300) Calcium (8.6-10.8) mg/dL Troponin I (0-0.03) ng/mL B-Natriuretic Peptide 898 H (0-100) pg/mL
[2017-03-19] MEDS ORDERED: Vancomycin 1,000 MG in D5% in Water 250 ML IVPB ONE (13:26)
[2017-03-19] MEDS ORDERED: Levofloxacin 750 MG/150 ML 750 MG/150 ML BAG IVPB ONE (13:26)
[2017-03-19] MEDS ORDERED: Piperacillin/Tazobactam 3.375 GM in D5% in Water (Mini-Bag+) 100 ML IVPB ONE (13:26)
[2017-03-19] MEDS ORDERED: 0.9 % Sodium Chloride 500 ML IVC ONE (13:33)
[2017-03-19] MEDS ORDERED: Naloxone 0.4 MG/ML INJ IVP PRN (14:48)
[2017-03-19] MEDS ORDERED: Acetaminophen 325 MG TABLET PO PRN (14:48)
[2017-03-19] MEDS ORDERED: D5% in Water 1,000 ML IVC PRN (14:51)
[2017-03-19] MEDS ORDERED: Dextrose Gel 15 GM PO PRN ×2 (14:51)
[2017-03-19] MEDS ORDERED: *HR* Dextrose 50 % in Water (Syg) 50 ML SYRINGE IVP PRN (14:51)
--- NOTE | 2017-03-19 15:04 | Internal Med History&Physical ---
Date of Encounter: 03/19/17 Time of Encounter: 14:30 Assessment and Plan (1) Pneumonia Current visit: Yes Status: Suspected Patient with elevated WBC count, chills, chest x-ray findings suggestive of pneumonia. We will treat with broad-spectrum empiric antibiotics due to recurrent hospitalizations recently. We will check respiratory infection panel and urine antigens. Follow blood cultures. Monitor vital signs closely. Sputum culture. Qualifiers: Pneumonia type: due to methicillin-resistant Staphylococcus aureus (MRSA) Laterality: bilateral Lung location: unspecified part of lung Qualified Code (s): J15.212 - Pneumonia due to Methicillin resistant Staphylococcus aureus (2) Chronic respiratory failure with hypoxia Current visit: Yes Status: Chronic Continue O2 supplementation (3) Congestive heart failure (CHF) Current visit: No Status: Chronic Not currently in exacerbation. Continue Lasix and other medications for this condition. Qualifiers: Congestive heart failure type: combined Congestive heart failure chronicity : chronic Qualified Code(s): I50.42 - Chronic combined systolic (congestive) and diastolic (congestive) heart failure (4) Coronary artery disease Current visit: No Status: Chronic Continue aspirin and statin and Plavix. Qualifiers: Coronary Disease-Associated Artery/Lesion type: [place] artery [place] vs. transplanted heart: [place] heart Associated angina: without angina Qualified Code(s): I25.10 - Atherosclerotic heart disease of [place] coronary artery without angina pectoris (5) Diabetes Current visit: No Status: Chronic Monitor blood sugars. Sliding scale insulin. Diabetic diet. Qualifiers: Diabetes mellitus type: type 2 Diabetes mellitus complication status: with unspecified complications Diabetes mellitus usp insulin use: without computer terminal operator use Qualified Code(s): E11.8 - Type 2 diabetes mellitus with unspecified complications (6) COPD (chronic obstructive pulmonary disease) Current visit: Yes Status: Chronic Not in acute exacerbation. We will use bronchodilator nebs as needed. Qualifiers: COPD type: chronic bronchitis Chronic bronchitis type: simple Qualified Code(s): J41.0 - Simple chronic bronchitis Internal Medicine - H&P: HPI Chief complaint: Cough, shortness of breath Admitted From: Emergency Dept Plans for Post Hospital Care: Home History of present illness: Mr. Ruiz is a 56 year old male patient with history of COPD, coronary artery disease, chronic respiratory failure, hyperlipidemia presented to the ER with complaints of worsening cough and shortness of breath. He had been feeling fine until Tuesday when he saw his primary care provider for regular appointment. However the next day he began to have cough with yellow sputum, shortness of breath and he started to have some chills. As such, he was prescribed antibiotics for possible pneumonia. He however did not get any better so he came to the ER here. He denies any chest pain. No nausea or vomiting. No fever. No palpitations. Past Med Surg Social Fam HX - Past Medical History Attestation: Yes The following information was validated with the patient. Source: patient, old records reviewed Medical history: atrial fibrillation, CHF, COPD, coronary artery disease, hyperlipidemia, myocardial infarction Psychiatric history: anxiety - Past Surgical History Surgical History: angioplasty/stent, appendectomy - Social History Smoking Status: Current some day smoker Smokeless Tobacco Status: No Alcohol use: none Drug use: none - Additional Family History Additional family history: Reviewed and found to be noncontributory at this time Internal Medicine - H&P: Meds Fluticasone/Vilanterol [Breo [place] 200-25 Mcg INH] 1 puff IH DAILY 12/11/16 [ History] Gabapentin [Neurontin] 600 mg PO TID 12/11/16 [History] Gemfibrozil [Lopid] 600 mg PO BIDWM 12/11/16 [History] Metformin HCl [Glucophage] 1,000 mg PO BID 12/11/16 [History] Omeprazole [PriLOSEC] 20 mg PO DAILY 12/11/16 [History] Umeclidinium [place] [Incruse Ellipta] 62.5 mcg IH DAILY 12/11/16 [History] Albuterol Neb [Proventil Neb] 2.5 mg IH 3-4XD PRN 12/17/16 [History] Albuterol Sulfate [Albuterol Inhaler] 2 puff IH Q4H PRN 12/17/16 [History] HYDROcodone/Acet 7.5/325 mg [[place] 7.5-325 mg] 1 tab PO Q6H PRN 12/17/16 [ History] Aspirin 81 mg PO DAILY #30 tab.chew 12/23/16 [Rx] Atorvastatin [Lipitor] 20 mg PO HS #30 tablet 12/23/16 [Rx] Clopidogrel [Plavix] 75 mg PO DAILY #30 tablet 12/23/16 [Rx] Nitroglycerin 0.4 mg SL Q5MIN PRN #30 tab.subl 12/23/16 [Rx] Potassium Chloride 10 meq PO DAILY #30 tab.er.prt 12/23/16 [Rx] Fluticasone Propionate Nasal [Flonase] 100 mcg NS DAILY #1 bottle 12/28/16 [Rx] Ipratropium/Albuterol Neb [Duoneb] 3 ml IH QIDR #100 inhsol 12/28/16 [Rx] Metoprolol XL (24 HR) Succ [Toprol Xl] 12.5 mg PO DAILY #30 tab.er.24h 12/28/16 [Rx] Montelukast [Singulair] 10 mg PO DAILY 02/23/17 [History] Furosemide [Lasix] 20 mg PO DAILY #30 tablet 03/02/17 [Rx] Hydrocortisone [Cortef] 20 mg PO HS #30 tablet 03/02/17 [Rx] Hydrocortisone [Cortef] 40 mg PO DAILY #30 tablet 03/02/17 [Rx] Spironolactone [Aldactone] 50 mg PO DAILY #30 tablet 03/02/17 [Rx] Allergies No Known Allergies Allergy (Verified 02/22/17 21:38) All Systems PM: A 10-system review of systems was performed and is negative for pertinent findings except as documented above in the HPI. - Constitutional Constitutional: chills, no fever(s), no night sweats - EENT Eyes: no change in vision, no discharge, no pain, no photophobia Ears: no ear discharge, no ear pain, no tinnitus Nose, mouth and throat: no dysphagia, no nasal discharge, no neck pain, no sore throat - Cardiovascular Cardiovascular ROS IM: no chest pain, no diaphoresis, no dyspnea, no lightheadedness, no palpitations, no syncope - Respiratory Respiratory: cough, excessive phlegm production, change in phlegm color, no dyspnea, no wheezing - Gastrointestinal Gastrointestinal: no abdominal pain, no diarrhea, no hematemesis, no hematochezia, no melena, no nausea, no vomiting - Musculoskeletal Musculoskeletal ROS IM: no numbness, no tingling - Integumentary Integumentary IM: no rash, no unusual bruising - Neurological Neurological ROS: no confusion, no convulsions, no focal weakness, no numbness, no tingling, no tremor(s) - Hematologic/Lymphatic Hematologic/Lymphatic: no easy bruising - Constitutional Vitals: Temp Pulse Resp BP Pulse Ox 97.6 F 16 24 129/45 93 03/19/17 10:09 03/19/17 14:06 03/19/17 14:18 03/19/17 14:18 03/19/17 14:06 General appearance: Present: cooperative, mild distress, A&O X 3, answers questions appropriately - Eye Eye exam: Present: EOMI, PERRL, conjuntiva pink, sclera anicteric - Neck Neck exam general surgery: Present: supple, trachea midline. Absent: lymphadenopathy - Respiratory Respiratory exam: Absent: accessory muscle use, rales, rhonchi, wheezes Additional comments: Coarse breath sounds especially in the left lung - Cardiovascular Cardiovascular exam: Present: RRR, +S1, +S2. Absent: diastolic murmur, gallop, rubs, systolic murmur - GI/Abdominal GI/Abdominal exam: Present: normal bowel sounds, soft, no peritoneal signs. Absent: distended, tenderness - Extremities Exam Extremities exam: Present: warm, radial pulses palpable and symetrical. Absent : calf tenderness, cyanotic, pedal edema - Neurological Exam Neurological exam: Present: alert, oriented X3, no focal deficits. Absent: facial droop, speech deficit - Skin Skin exam: Present: dry, intact Internal Med - H&P Results - Labs CBC & Chem 7: 03/19/17 10:51 03/19/17 10:51 - Impressions Impressions Chest X-Ray 03/19/17 10:23 IMPRESSION: Stable chest with chronic parenchymal lung disease most compatible with an atypical infectious process or interstitial lung disease D/ / Anshul Michel MD / Anshul Michel MD Interpreting Provider: Anshul Michel MD - Attending Attestation This document has been at least partially created by [employer] recognition technology by Dr. Johnston. Errors in grammar, wording or other phrases may exist. If errors are found after the documentation is signed, they will be addressed individually in the addendum section of this document when appropriate.
[2017-03-19] MEDS ORDERED: Ipratropium/Albuterol Neb 3 ML IH PRN (15:12)
[2017-03-19] MEDS ORDERED: Insulin LISPRO 300 UNITS/3 ML VIAL SQ SCH ×2 (16:30→21:00)
[2017-03-19] MEDS ORDERED: Furosemide 20 MG TABLET PO PRN (16:33)
[2017-03-19] MEDS ORDERED: Nitroglycerin 0.4 MG TAB.SUBL SL PRN (16:33)
[2017-03-19] MEDS ORDERED: Insulin Human Regular 10 UNIT in 0.9 % Sodium Chloride 10 ML IV ONE (16:40)
[2017-03-19] MEDS: Insulin LISPRO 300 UNITS/3 ML VIAL SQ SCH ×2 (16:44→21:22)
[2017-03-19] MEDS: *HR* Heparin 5,000 UNIT/ML VIAL SQ SCH (18:12)
[2017-03-19] MEDS ORDERED: *HR* LORazepam 0.5 MG TABLET PO ONE (18:40)
[2017-03-19] MEDS: Hydrocortisone 10 MG TABLET PO SCH (21:21)
[2017-03-19] MEDS: Insulin DETEMIR 100 UNIT/ML X5UNITS SQ SCH (21:21)
[2017-03-19] MEDS: Gabapentin 300 MG CAPSULE PO SCH (21:21)
[2017-03-20] MEDS: Piperacillin/Tazobactam 3.375 GM in D5% in Water (Mini-Bag+) 100 ML IVPB SCH ×2 (00:34→08:37)
[2017-03-20 03:48] LABS: Basophils % 0.1 %; Hematocrit 29.1 % (37.5-50.1); Hemoglobin 8.6 g/dL (12.9-16.9); Immature Granulocytes % 0.6 % (0-4); Lymphocytes # 0.7 K/mcL (0.6-4.6); Lymphocytes % 4.6 %; Mean Corpuscular HGB Conc 29.6 g/dL (31.6-35.5); Mean Corpuscular Hemoglobin 24.4 pg (28.0-33.3); Mean Corpuscular Volume 82.4 fL (83.0-100.0); Mean Platelet Volume 12.3 fL (9.4-12.4); Monocytes # 0.2 K/mcL (0.0-1.3); Monocytes % 1.4 %; Neutrophils # 14.2 K/mcL (1.6-8.9); Nucleated Red Blood Cells 0.2 /100 WBC (0); Platelet Count 182 K/mcL (140-400); Red Blood Count 3.53 M/mcL (4.19-5.50); Red Cell Distribution Width 17.5 % (11.5-14.5); Segmented Neutrophils % 93.3 %
[2017-03-20 04:04] LABS: BUN/Creatinine Ratio 21 (6-26); Blood Urea Nitrogen 17 mg/dL (8-26); Calcium 7.8 mg/dL (8.6-10.8); Carbon Dioxide 29 mEq/L (19-29); Chloride 97 mEq/L (98-109); Glucose 232 mg/dL (70-99); Osmolality,Calculated 297 (280-300); Sodium 139 mEq/L (136-145); eGFR For African Americans > 60 (> 60); eGFR For Non-African Americans > 60 (> 60)
[2017-03-20] MEDS: *HR* HYDROcodone/Acet 7.5/325 mg TABLET PO PRN ×3 (04:32→20:08)
[2017-03-20] MEDS: Vancomycin 1,000 MG in D5% in Water 250 ML IVPB SCH ×2 (04:32→16:21)
[2017-03-20] MEDS: *HR* Heparin 5,000 UNIT/ML VIAL SQ SCH ×2 (05:41→16:51)
[2017-03-20] MEDS ORDERED: Albuterol 2.5 MG/3 ML NEBULIZER IH PRN (07:40)
[2017-03-20] MEDS: Insulin DETEMIR 100 UNIT/ML X5UNITS SQ SCH ×2 (08:37→20:10)
[2017-03-20] MEDS: Gabapentin 300 MG CAPSULE PO SCH ×3 (08:38→20:08)
[2017-03-20] MEDS: Aspirin 81 MG TAB.CHEW PO SCH (08:39)
[2017-03-20] MEDS: Metoprolol XL (24 HR) Succ 25 MG TAB.ER.24H PO SCH (08:39)
[2017-03-20] MEDS: Fluticasone Propionate Nasal 50 MCG/SPRAY BOTTLE NS SCH (08:40)
[2017-03-20] MEDS: Insulin LISPRO 300 UNITS/3 ML VIAL SQ SCH ×4 (08:40→20:11)
[2017-03-20] MEDS ORDERED: Hydrocortisone 10 MG TABLET PO SCH (09:00)
[2017-03-20] MEDS: Ipratropium/Albuterol Neb 3 ML IH SCH ×4 (11:57→21:05)
[2017-03-20] MEDS: Hydrocortisone Sodium Succ 100 MG/2 ML VIAL IVP SCH (12:45)
--- NOTE | 2017-03-20 12:45 | Electrocardiograph Report ---
[address] [address] Test Date: 2017-03-19 Pat Name: Hai Ruiz Department: 105 Room: 2N04 Gender: M Incubator Operator: ROSA : [id number] Requested By: Virgil Enrique Order Number: [id number] Reading MD: Francisco Meneses Measurements Intervals [place] Rate: 124 P: 71 [place]: 139 QRS: 88 QRSD: 101 T: 71 QT: 309 QTc: 382 Interpretive Statements SINUS TACHYCARDIA WITH OCCASIONAL SUPRAVENTRICULAR PREMATURE COMPLEXES INDETERMINATE AXIS INCOMPLETE RIGHT BUNDLE BRANCH BLOCK ABNORMAL RHYTHM ECG Electronically Signed On 03-20-2017 12:43:19 EDT by Francisco Meneses
[2017-03-20] MEDS ORDERED: Levofloxacin 750 MG/150 ML 750 MG/150 ML BAG IVPB SCH (15:00)
[2017-03-20] MEDS: Levofloxacin 500 MG/100 ML 500 MG/100 ML BAG IVPB SCH (16:20)
--- NOTE | 2017-03-20 16:22 | Internal Med Progress Note ---
Date of Encounter: 03/20/17 Time of Encounter: 07:30 - Assessment and plan (1) Acute on chronic respiratory failure with hypoxemia Current Visit: Yes Status: Acute Assessment and plan: Patient with chronic respiratory failure on oxygen at home at 2 LPM. He has Interstitial lung disease, COPD, right heart failure, moderate pulmonary hypertension and still smokes. He presents with productive cough and shortness of breath with associated chills. He took oral Levaquin for 4 days at home without clinical improvement so he came to our emergency department. Secondary to community-acquired pneumonia, acute exacerbation of interstitial lung disease and COPD exacerbation. 03/20: CT of the chest showed mild new patchy right lung opacities, no lobar pneumonia, emphysema and chronic fibrosis with multifocal right lung patchy scaring, interval resolution of the right pleural effusion with stable basilar chronic pleural thickening. December 2016: Echocardiogram revealed LVEF 40%, moderately dilated RV with moderate reduction in function, LV septal flattening consistent with RV pressure overload, moderate pulmonary hypertension. 03/20: Slowly clinically improving. Continue nebulizations, empiric antibiotics with IV Levaquin and IV vancomycin. Increase systemic corticosteroids dose. Check urine Legionella and urine Streptococcus. Follow up blood culture results. Start IV furosemide 20 mg twice a day tid. Fluid restriction. (2) Interstitial lung disease Current Visit: Yes Status: Acute Assessment and plan: Acute exacerbation of interstitial lung disease. Plan as above. (3) Community acquired pneumonia Current Visit: Yes Status: Acute Assessment and plan: Bacterial right lower lobe pneumonia. Plan as above. (4) Pulmonary hypertension Current Visit: Yes Status: Acute Assessment and plan: Plan as above. (5) Adrenal insufficiency Current Visit: No Status: Chronic Assessment and plan: Patient with diagnosis of adrenal insufficiency for which he takes hydrocortisone 40 mg in the morning and 20 m at bedtime. Because of acute ILD and COPD, patient will require a higher dose of IV systemic glucocorticoid steroids. I will start IV hydrocortisone 100 mg in the morning and oral hydrocortisone 20 mg at bedtime. (6) Atrial fibrillation Current Visit: No Status: Chronic Assessment and plan: Continue oral metoprolol. panel monitor. Qualifiers: Atrial fibrillation type: paroxysmal Qualified Code(s): I48.0 - Paroxysmal atrial fibrillation (7) Diabetes Current Visit: No Status: Chronic Assessment and plan: Diabetes mellitus with hyperglycemia. Continue Lantus 15 units twice a day. Sliding scale insulin and diabetic diet. Qualifiers: Diabetes mellitus type: type 2 Diabetes mellitus complication status: with hyperglycemia Diabetes mellitus terminal block assembler insulin use: without terminal block assembler use Qualified Code(s): E11.65 - Type 2 diabetes mellitus with hyperglycemia (8) Tobacco abuse Current Visit: No Status: Chronic - Subjective Interval history: Patient reports productive cough and shortness of breath on surgeon. - Constitutional Vitals: Temp Pulse Resp BP Pulse Ox 97.4 F L 102 17 109/82 94 03/20/17 16:00 03/20/17 16:00 03/20/17 16:00 03/20/17 16:00 03/20/17 16:00 General appearance: Present: cooperative, mild distress, A&O X 3, pleasant, answers questions appropriately - Neck Neck exam general surgery: Present: supple, trachea midline. Absent: lymphadenopathy - Respiratory Respiratory exam: Present: decreased breath sounds, wheezes - Cardiovascular Cardiovascular exam: Present: distant heart sounds - GI/Abdominal GI/Abdominal exam: Present: normal bowel sounds, soft. Absent: distended, tenderness - Extremities Exam Extremities exam: Present: pedal edema (2+ lower extremity edema) - Back Exam Back exam: Absent: CVA tenderness (L), CVA tenderness (R) - Neurological Exam Neurological exam: Present: alert, oriented X3, no focal deficits, strengths equal and symetr throughout. Absent: facial droop, speech deficit Internal Medicine: Result - Labs CBC & Chem 7: 03/20/17 03:19 03/20/17 03:19 Labs: Short CBC 03/20/17 Range/Units 03:19 WBC 15.2 H (4.3-11.1) K/mcL Hgb 8.6 L (12.9-16.9) g/dL Hct 29.1 L (37.5-50.1) % Plt Count 182 (140-400) K/mcL Neutrophils # 14.2 H (1.6-8.9) K/mcL BMP 03/20/17 03:19 Sodium 139 Potassium 4.0 Chloride 97 L Carbon Dioxide 29 BUN 17 Creatinine 0.82 Glucose 232 H Calcium 7.8 L - Impressions Impressions Chest CT 03/20/17 07:47 IMPRESSION: 1. Redemonstration of emphysema and chronic fibrosis with multifocal right lung patchy scarring consistent with sequela of prior infectious/inflammatory process. 2. Mild new patchy right lung opacities which may represent an acute infectious/inflammatory process with no lobar pneumonia. 3. Interval resolution of the right pleural effusion with stable basilar chronic pleural thickening. D/ / 03/20/2017 09:34:13 Eleuterio Salmeron MD / evelyn Interpreting Provider: Eleuterio Salmeron MD Consult Discharge Plan - Plan Referrals: Tawanda Chi MD [Primary Care Provider] -
[2017-03-20] MEDS: Furosemide 20 MG/2 ML VIAL IVP SCH ×2 (16:51→20:11)
[2017-03-20] MEDS: Hydrocortisone 10 MG TABLET PO SCH (20:09)
[2017-03-20] MEDS ORDERED: *HR* LORazepam 0.5 MG TABLET PO ONE (20:20)
[2017-03-21] MEDS: Ipratropium/Albuterol Neb 3 ML IH SCH ×6 (00:54→20:23)
[2017-03-21 03:59] LABS: Basophils % 0.1 %; Hematocrit 28.6 % (37.5-50.1); Hemoglobin 8.5 g/dL (12.9-16.9); Immature Granulocytes % 0.7 % (0-4); Immature Platelets 10.3 % (1.1-6.1); Lymphocytes # 0.8 K/mcL (0.6-4.6); Lymphocytes % 4.6 %; Mean Corpuscular HGB Conc 29.7 g/dL (31.6-35.5); Mean Corpuscular Hemoglobin 24.4 pg (28.0-33.3); Mean Corpuscular Volume 82.2 fL (83.0-100.0); Mean Platelet Volume 10.4 fL (9.4-12.4); Monocytes # 0.8 K/mcL (0.0-1.3); Monocytes % 4.7 %; Neutrophils # 15.1 K/mcL (1.6-8.9); Nucleated Red Blood Cells 0.3 /100 WBC (0); Platelet Count 210 K/mcL (140-400); Red Blood Count 3.48 M/mcL (4.19-5.50); Red Cell Distribution Width 17.2 % (11.5-14.5); Segmented Neutrophils % 89.9 %
[2017-03-21 04:09] LABS: BUN/Creatinine Ratio 26 (6-26); Blood Urea Nitrogen 26 mg/dL (8-26); Calcium 7.2 mg/dL (8.6-10.8); Carbon Dioxide 29 mEq/L (19-29); Chloride 99 mEq/L (98-109); Glucose 261 mg/dL (70-99); Magnesium 0.9 mg/dL (1.6-2.6); Osmolality,Calculated 302 (280-300); Phosphorous 4.4 mg/dL (2.3-4.7); Potassium 3.8 mEq/L (3.5-4.5); Sodium 139 mEq/L (136-145); eGFR For African Americans > 60 (> 60); eGFR For Non-African Americans > 60 (> 60)
[2017-03-21 04:16] LABS: Anisocytosis 1+ (Not Present)
[2017-03-21 04:17] LABS: Large Platelets Present (Not Present); Microcytosis Present (Not Present); Platelet Estimate Normal (Normal); Poikilocytosis 1+ (Not Present); Polychromasia 1+ (Not Present); Schistocytes 1+ (Not Present); Target Cells 1+ (Not Present)
[2017-03-21] MEDS: Vancomycin 1,000 MG in D5% in Water 250 ML IVPB SCH (04:25)
[2017-03-21] MEDS: *HR* Heparin 5,000 UNIT/ML VIAL SQ SCH ×2 (05:38→17:02)
[2017-03-21] MEDS ORDERED: Aminoglycoside Consult 1 EACH MC ONE (07:55)
[2017-03-21] MEDS ORDERED: Magnesium Sulfate 2 GM in D5% in Water 100 ML IVPB STA (08:18)
[2017-03-21] MEDS ORDERED: Calcium Gluconate 1,000 MG in D5% in Water 100 ML IVPB ONE (08:18)
[2017-03-21] MEDS: Hydrocortisone Sodium Succ 100 MG/2 ML VIAL IVP SCH (08:48)
[2017-03-21] MEDS: Insulin DETEMIR 100 UNIT/ML X5UNITS SQ SCH ×2 (08:49→17:16)
[2017-03-21] MEDS: Gabapentin 300 MG CAPSULE PO SCH ×3 (08:50→20:38)
[2017-03-21] MEDS: Aspirin 81 MG TAB.CHEW PO SCH (08:50)
[2017-03-21] MEDS: Metoprolol XL (24 HR) Succ 25 MG TAB.ER.24H PO SCH (08:51)
[2017-03-21] MEDS: Fluticasone Propionate Nasal 50 MCG/SPRAY BOTTLE NS SCH (08:51)
[2017-03-21] MEDS: Insulin LISPRO 300 UNITS/3 ML VIAL SQ SCH ×4 (08:52→20:38)
[2017-03-21] MEDS: Furosemide 20 MG/2 ML VIAL IVP SCH ×3 (09:39→20:38)
[2017-03-21] MEDS ORDERED: Magnesium Sulfate 1 GM in D5% in Water 100 ML IVPB ONE (12:00)
[2017-03-21] MEDS ORDERED: Insulin DETEMIR 100 UNIT/ML X5UNITS SQ ONE (15:15)
[2017-03-21] MEDS: Levofloxacin 500 MG/100 ML 500 MG/100 ML BAG IVPB SCH (17:02)
[2017-03-21] MEDS: *HR* HYDROcodone/Acet 7.5/325 mg TABLET PO PRN (17:05)
--- NOTE | 2017-03-21 17:08 | Internal Med Progress Note ---
Date of Encounter: 03/21/17 Time of Encounter: 10:45 - Assessment and plan (1) Acute on chronic respiratory failure with hypoxemia Current Visit: Yes Status: Acute Assessment and plan: Patient with chronic respiratory failure on oxygen at home at 2 LPM. He has Interstitial lung disease, COPD, right heart failure, moderate pulmonary hypertension and still smokes. He presents with productive cough and shortness of breath with associated chills. He took oral Levaquin for 4 days at home without clinical improvement so he came to our emergency department. Secondary to community-acquired pneumonia, acute exacerbation of interstitial lung disease and COPD exacerbation. 03/20: CT of the chest showed mild new patchy right lung opacities, no lobar pneumonia, emphysema and chronic fibrosis with multifocal right lung patchy scaring, interval resolution of the right pleural effusion with stable basilar chronic pleural thickening. December 2016: Echocardiogram revealed LVEF 40%, moderately dilated RV with moderate reduction in function, LV septal flattening consistent with RV pressure overload, moderate pulmonary hypertension. 03/21: continues to improve slowly. Continue nebulizations, empiric antibiotics with IV Levaquin, oral steroids, furosemide. stop IV vancomycin. negative blood culture so far. Fluid restriction. (2) Interstitial lung disease Current Visit: Yes Status: Acute Assessment and plan: Acute exacerbation of interstitial lung disease. Plan as above. (3) Community acquired pneumonia Current Visit: Yes Status: Acute Assessment and plan: Bacterial right lower lobe pneumonia. Plan as above. (4) Pulmonary hypertension Current Visit: Yes Status: Acute Assessment and plan: Plan as above. (5) Adrenal insufficiency Current Visit: No Status: Chronic Assessment and plan: Patient with diagnosis of adrenal insufficiency for which he takes hydrocortisone 40 mg in the morning and 20 m at bedtime. stop IV hydrocortisone and resume oral home dose of hydrocortisone. (6) Atrial fibrillation Current Visit: No Status: Chronic Assessment and plan: Continue oral metoprolol. 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 Qualifiers: Atrial fibrillation type: paroxysmal Qualified Code(s): I48.0 - Paroxysmal atrial fibrillation (7) Diabetes Current Visit: No Status: Chronic Assessment and plan: Diabetes mellitus with hyperglycemia. glucose levels up to 408. stop IV hydrocortisone. continue levemir 15 units twice a day. Sliding scale insulin and diabetic diet. Qualifiers: Diabetes mellitus type: type 2 Diabetes mellitus complication status: with hyperglycemia Diabetes mellitus joint terminal attack controller insulin use: without joint terminal attack controller use Qualified Code(s): E11.65 - Type 2 diabetes mellitus with hyperglycemia (8) Tobacco abuse Current Visit: No Status: Chronic - Subjective Interval history: Patient reports improved productive cough and shortness of breath. - Constitutional Vitals: Temp Pulse Resp BP Pulse Ox 97.4 F L 101 16 107/70 94 03/21/17 15:09 03/21/17 15:09 03/21/17 16:18 03/21/17 15:09 03/21/17 16:18 General appearance: Present: cooperative, mild distress, A&O X 3, pleasant, answers questions appropriately - Neck Neck exam general surgery: Present: supple, trachea midline. Absent: lymphadenopathy - Respiratory Respiratory exam: Present: decreased breath sounds, wheezes (diffuse mild) - Cardiovascular Cardiovascular exam: Present: RRR - GI/Abdominal GI/Abdominal exam: Present: normal bowel sounds, soft. Absent: distended, tenderness - Extremities Exam Extremities exam: Present: pedal edema (2+ Le edema) - Back Exam Back exam: Absent: CVA tenderness (L), CVA tenderness (R) - Neurological Exam Neurological exam: Present: alert, oriented X3. Absent: facial droop, speech deficit - Skin Skin exam: Absent: rash Internal Medicine: Result - Labs CBC & Chem 7: 03/21/17 03:50 03/21/17 03:50 Labs: Short CBC 03/21/17 Range/Units 03:50 WBC 16.8 H (4.3-11.1) K/mcL Hgb 8.5 L (12.9-16.9) g/dL Hct 28.6 L (37.5-50.1) % Plt Count 210 (140-400) K/mcL Neutrophils # 15.1 H (1.6-8.9) K/mcL BMP 03/21/17 03:50 Sodium 139 Potassium 3.8 Chloride 99 Carbon Dioxide 29 BUN 26 Creatinine 0.99 Glucose 261 H Calcium 7.2 L Consult Discharge Plan - Plan Referrals: Tawanda Chi MD [Primary Care Provider] - 03/28/17 9:30 am
[2017-03-21] MEDS: Hydrocortisone 10 MG TABLET PO SCH (20:37)
[2017-03-21] MEDS ORDERED: *HR* LORazepam 0.5 MG TABLET PO ONE (21:10)
[2017-03-22] MEDS: Ipratropium/Albuterol Neb 3 ML IH SCH ×5 (00:34→15:36)
[2017-03-22] MEDS: *HR* HYDROcodone/Acet 7.5/325 mg TABLET PO PRN ×2 (04:03→11:30)
[2017-03-22 04:47] LABS: Basophils % 0.1 %; Eosinophils % 0.1 %; Hemoglobin 8.7 g/dL (12.9-16.9); Lymphocytes # 1.2 K/mcL (0.6-4.6); Lymphocytes % 7.9 %; Mean Corpuscular Hemoglobin 24.6 pg (28.0-33.3); Mean Corpuscular Volume 84.7 fL (83.0-100.0); Mean Platelet Volume 12.3 fL (9.4-12.4); Monocytes # 1.1 K/mcL (0.0-1.3); Monocytes % 7.5 %; Neutrophils # 12.2 K/mcL (1.6-8.9); Nucleated Red Blood Cells 0.3 /100 WBC (0); Platelet Count 205 K/mcL (140-400); Red Blood Count 3.54 M/mcL (4.19-5.50); Red Cell Distribution Width 17.5 % (11.5-14.5); Segmented Neutrophils % 83.4 %
[2017-03-22 05:05] LABS: BUN/Creatinine Ratio 25 (6-26); Blood Urea Nitrogen 24 mg/dL (8-26); Calcium 7.3 mg/dL (8.6-10.8); Carbon Dioxide 31 mEq/L (19-29); Chloride 101 mEq/L (98-109); Glucose 174 mg/dL (70-99); Magnesium 1.1 mg/dL (1.6-2.6); Osmolality,Calculated 304 (280-300); Potassium 3.6 mEq/L (3.5-4.5); Sodium 143 mEq/L (136-145); eGFR For African Americans > 60 (> 60); eGFR For Non-African Americans > 60 (> 60)
[2017-03-22] MEDS: *HR* Heparin 5,000 UNIT/ML VIAL SQ SCH (05:38)
[2017-03-22] MEDS ORDERED: Magnesium Sulfate 2 GM in D5% in Water 100 ML IVPB STA (08:09)
[2017-03-22] MEDS: Gabapentin 300 MG CAPSULE PO SCH ×2 (08:19→15:39)
[2017-03-22] MEDS: Metoprolol XL (24 HR) Succ 25 MG TAB.ER.24H PO SCH (08:20)
[2017-03-22] MEDS: Aspirin 81 MG TAB.CHEW PO SCH (08:20)
[2017-03-22] MEDS: Furosemide 20 MG/2 ML VIAL IVP SCH ×2 (08:21→15:19)
[2017-03-22] MEDS: Fluticasone Propionate Nasal 50 MCG/SPRAY BOTTLE NS SCH (08:21)
[2017-03-22] MEDS: Insulin DETEMIR 100 UNIT/ML X5UNITS SQ SCH (08:23)
[2017-03-22] MEDS: Insulin LISPRO 300 UNITS/3 ML VIAL SQ SCH ×3 (08:23→16:02)
[2017-03-22] MEDS ORDERED: Hydrocortisone 10 MG TABLET PO SCH (09:00)
[2017-03-22] MEDS ORDERED: Magnesium Oxide 400 MG TABLET PO SCH (09:00)
[2017-03-22 11:13] VITALS: BP 109/80
[2017-03-22] MEDS ORDERED: Magnesium Sulfate 1 GM in D5% in Water 100 ML IVPB ONE (12:00)
[2017-03-22] MEDS ORDERED: levoFLOXacin 500 MG TABLET PO ONE (15:17)
--- NOTE | 2017-03-22 15:32 | Discharge Summary ---
Date of Encounter: 03/22/17 Time of Encounter: 10:00 - Discharge Diagnosis (1) Acute on chronic respiratory failure with hypoxemia Priority: Primary Status: Acute (2) Interstitial lung disease Priority: Primary Status: Acute (3) Community acquired pneumonia Priority: Primary Status: Acute (4) Pulmonary hypertension Priority: Primary Status: Acute (5) Adrenal insufficiency Priority: Secondary Status: Chronic (6) Atrial fibrillation Priority: Secondary Status: Chronic Qualifiers: Atrial fibrillation type: paroxysmal Qualified Code(s): I48.0 - Paroxysmal atrial fibrillation (7) Diabetes Priority: Primary Status: Acute Qualifiers: Diabetes mellitus type: type 2 Diabetes mellitus complication status: with hyperglycemia Diabetes mellitus termite control servicer insulin use: without termite control servicer use Qualified Code(s): E11.65 - Type 2 diabetes mellitus with hyperglycemia (8) Tobacco abuse Priority: Secondary Status: Chronic - Discharge Medications Prescriptions: Insulin Glargine [Lantus] 20 unit SQ HS #30 mls levoFLOXacin [Levaquin] 500 mg PO DAILY #3 tablet Magnesium Oxide [Mag-Ox] 400 mg PO BID #60 tablet Syringe and Needle,Insulin,1Ml [Insulin Syringe] 1 each SQ DAILY #100 disp.syrin Home Medications: Fluticasone/Vilanterol [Breo Ellipta 200-25 Mcg INH] 1 puff IH DAILY 12/11/16 [ History] Gabapentin [Neurontin] 600 mg PO TID 12/11/16 [History] Gemfibrozil [Lopid] 600 mg PO BIDWM 12/11/16 [History] Metformin HCl [Glucophage] 1,000 mg PO BID 12/11/16 [History] Omeprazole [PriLOSEC] 20 mg PO DAILY 12/11/16 [History] Umeclidinium [place] [Incruse Ellipta] 62.5 mcg IH DAILY 12/11/16 [History] Albuterol Neb [Proventil Neb] 2.5 mg IH 3-4XD PRN 12/17/16 [History] Albuterol Sulfate [Albuterol Inhaler] 2 puff IH Q4H PRN 12/17/16 [History] HYDROcodone/Acet 7.5/325 mg [[place] 7.5-325 mg] 1 tab PO Q6H PRN 12/17/16 [ History] Aspirin 81 mg PO DAILY #30 tab.chew 12/23/16 [Rx] Atorvastatin [Lipitor] 20 mg PO HS #30 tablet 12/23/16 [Rx] Clopidogrel [Plavix] 75 mg PO DAILY #30 tablet 12/23/16 [Rx] Nitroglycerin 0.4 mg SL Q5MIN PRN #30 tab.subl 12/23/16 [Rx] Potassium Chloride 10 meq PO DAILY #30 tab.er.prt 12/23/16 [Rx] Fluticasone Propionate Nasal [Flonase] 100 mcg NS DAILY #1 bottle 12/28/16 [Rx] Ipratropium/Albuterol Neb [Duoneb] 3 ml IH QIDR #100 inhsol 12/28/16 [Rx] Montelukast [Singulair] 10 mg PO DAILY 02/23/17 [History] Hydrocortisone [Cortef] 20 mg PO HS #30 tablet 03/02/17 [Rx] Hydrocortisone [Cortef] 40 mg PO DAILY #30 tablet 03/02/17 [Rx] Furosemide [Lasix] 20 - 40 mg PO DAILY PRN 03/19/17 [History] Insulin Glargine [Lantus] 20 unit SQ HS #30 mls 03/22/17 [Rx] Magnesium Oxide [Mag-Ox] 400 mg PO BID #60 tablet 03/22/17 [Rx] Metoprolol XL (24 HR) Succ [Toprol Xl] 25 mg PO DAILY #30 tab.er.24h 03/22/17 [ Rx] Spironolactone [Aldactone] 50 mg PO DAILY #0 03/22/17 [Rx] Syringe and Needle,Insulin,1Ml [Insulin Syringe] 1 each SQ DAILY #100 disp.syrin 03/22/17 [Rx] levoFLOXacin [Levaquin] 500 mg PO DAILY #3 tablet 03/22/17 [Rx] Allergies/Adverse Reactions: Allergies No Known Allergies Allergy (Verified 02/22/17 21:38) Procedures/tests Complete & Pending: Procedures Performed prior 72 hours Category Date Time Status CT chest wo con [CT] Routine Cat Scan 03/20/17 07:47 Completed Date of admission: 03/19/17 14:48 Primary care physician: Tawanda Chi MD Consults: 03/22/17 14:30 Consult to [place] Worker [CONS] Stat Comment: Reason for Consult: Blood glucose control. Patient is being discharged at 1630. Being sent home with new prescription for Lantus. Patient did not take insulin at home prior to admission. - Patient Status Disposition: Home, Self-Care Condition: Good Functional capacity at discharge: independent ambulation Overall status at discharge: patient is progressing back to baseline - Discharge Instructions Follow Up With: Tawanda Chi MD [Primary Care Provider] - 03/28/17 9:30 am Additional Instructions: Please check your blood sugars before meals and at bedtime. write down the numbers and bring record to doctor's appointment. Continue a strict diabetic and fluid restriction diet (drink no more than 1.5 liters a day). please stop smoking. - Diet and Activity Activity: resume usual activities as tolerated Diet: diabetic diet, low fat, low cholesterol, other (fluid restriction 1.5 liters a day) Interval History: patient feels better and is eager to go home. his shortness of breath and cough have improved. Hospital course: Mr. Ruiz is a 56 year old male with past medical history of chronic respiratory failure on oxygen at home at 2 LPM, Interstitial lung disease, COPD , right heart failure, moderate pulmonary hypertension, adrenal insufficiency on oral hdyrocortisone, DM and tobacco use. He presents with productive cough and shortness of breath with associated chills. He took oral Levaquin for 4 days at home without clinical improvement so he came to our emergency department. He was admitted with acute on chronic respiratory failure secondary to community-acquired pneumonia, acute exacerbation of interstitial lung disease and COPD exacerbation. 03/20: CT of the chest showed mild new patchy right lung opacities, no lobar pneumonia, emphysema and chronic fibrosis with multifocal right lung patchy scaring, interval resolution of the right pleural effusion with stable basilar chronic pleural thickening. December 2016 : Echocardiogram revealed LVEF 40%, moderately dilated RV with moderate reduction in function, LV septal flattening consistent with RV pressure overload , moderate pulmonary hypertension. Blood cultures were negative. Initially, patient is started on broad-spectrum antibiotics but then the escalated to only IV Levaquin. She received nebulizations, oral steroids, and IV furosemide with clinical improvement. She has glucose levels were significantly elevated so he received Levemir 15 units twice a day with better control of his sugars. PLAN: Continue long-acting insulin. Patient prescribed Lantus. He was instructed to check blood sugars before meals and at bedtime. He will follow- up with his primary care doctors for diabetes next week. He will follow-up in the pulmonology clinic in 1-2 weeks. He will need a repeat CT of the chest in 4 -6 weeks to address resolution of acute findings. - Time Spent with Patient Total time spent providing and/or coordinating discharge services: - Constitutional Vitals: Temp Pulse Resp BP Pulse Ox 98.0 F 107 18 109/80 97 03/22/17 11:09 03/22/17 11:09 03/22/17 11:03/22/17 11:03/22/17 11:09 General appearance: Present: cooperative, mild distress, A&O X 3, pleasant, answers questions appropriately - Respiratory Respiratory exam: Present: CTAB - Cardiovascular Cardiovascular exam: Present: RRR - GI/Abdominal GI/Abdominal exam: Present: normal bowel sounds, soft. Absent: distended, tenderness - Extremities Exam Extremities exam: Absent: pedal edema - Back Exam Back exam: Absent: CVA tenderness (L), CVA tenderness (R) - Neurological Exam Neurological exam: Present: alert, oriented X3, no focal deficits, strengths equal and symetr throughout. Absent: facial droop, speech deficit - Skin Skin exam: Absent: rash
== END 2017-03-22 17:05 | disposition home or self-care (01) | DRG 189 ==
LOC: 3ANU 10:08 → EMEROO 10:08 → 2NNU 14:24 → SUATTDRO 14:48 → 2NNU 15:00
PROVIDERS: ADMIT Internal Medicine; ATTEND Internal Medicine

== ENCOUNTER 2017-07-31 14:44 | Inpatient (IN) ==
[2017-07-31] MEDS ORDERED: Naloxone 0.4 MG/ML INJ IVP PRN (18:07)
[2017-07-31] MEDS ORDERED: Acetaminophen 325 MG TABLET PO PRN (18:07)
[2017-07-31] MEDS ORDERED: Albuterol 2.5 MG/3 ML NEBULIZER IH PRN (18:12)
[2017-07-31] MEDS ORDERED: *HR* Dextrose 50 % in Water (Syg) 50 ML SYRINGE IVP PRN (18:15)
[2017-07-31] MEDS ORDERED: D5% in Water 1,000 ML IVC PRN (18:15)
[2017-07-31] MEDS ORDERED: Dextrose Gel 15 GM PO PRN ×2 (18:15)
--- NOTE | 2017-07-31 18:43 | Internal Med History&Physical ---
<Ana María Ennis M - Last Filed: 08/01/17 00:25> Date of Encounter: 08/01/17 Time of Encounter: 18:41 Assessment and Plan (1) Acute and chronic respiratory failure Current visit: Yes Status: Acute Patient with CHF, COPD and interstitial lung disease, on 2L of O2 at home. He presents with shortness of breath. Initial ABG at [place] showed significant hypoxia with PO2 of 27 and O2 saturation of 48%, this improved to 73 and 94% after diureses and breathing treatments. Treat CHF exacerbation with diuresis. Duonebs. Titrate oxygen to maintain saturation. Respiratory therapy consulted for overnight BIPAP qualification. Qualifiers: Respiratory failure complication: hypoxia and hypercapnia Qualified Code(s) : J96.21 - Acute and chronic respiratory failure with hypoxia; J96.22 - Acute and chronic respiratory failure with hypercapnia (2) Acute on chronic systolic (congestive) heart failure Current visit: Yes Status: Acute Patient with history of chronic systolic congestive heart failure. He was recently admitted to [facility] with respiratory failure, fluid overload and pneumonia and send home on Bumex. He presented today with worsening shortness of breath, diffuse swelling, and cough. He has +3-4 pitting edema of BLE and anasarca. Lungs with diffuse rales. BNP elevated to 1128 Continuous manager monitoring Lasix 40mg Q8hr daily weights cardiac diet with 1.5L fluid restriction strict I/Os Obtain echocardiogram from [place]. (3) HCAP (healthcare-associated pneumonia) Current visit: Yes Status: Acute Patient presents with increased shortness of breath and productive cough. He had recent admission to [facility] with respiratory failure, pneumonia, fluid overload. CXR showed stable cardiomegaly, stable scarring in right base and middle lobe. Will treat as HCAP with recent admission. Cefepime and Vanc IVPB duoneb treatments QID albuterol nebulizer Q2 PRN titrate oxygen to maintain saturation. (4) Elevated troponin Current visit: Yes Status: Acute Troponin of 0.06, likely demand ischemia from CHF exacerbation. Treating CHF exacerbation with diuresis. Continuous manager monitoring serial troponin for trend (5) Type 2 diabetes mellitus Current visit: Yes Status: Acute Hyperglycemic likely secondary to recent steroid use, may have to increase insulin dosing Check Hgb A1c diabetic diet check blood sugars ACHS Sliding scale correction dose ACHS Long acting insulin 14u HS Qualifiers: Diabetes mellitus complication status: with hyperglycemia Diabetes mellitus long term care social worker insulin use: with senior care use Qualified Code(s): E11.65 - Type 2 diabetes mellitus with hyperglycemia; Z79.4 - USP (current) use of insulin (6) DVT prophylaxis Current visit: Yes Status: Acute anti-embolic stockings Heparin SQ TID Internal Medicine - H&P: HPI Chief complaint: shortness of breath Admitted From: Hospital to Hospital Transfer Plans for Post Hospital Care: Home History of present illness: Mr. Ruiz is a 57 year old male with hypertension, hyperlipidemia type 2 diabetes, interstitial lung disease, COPD, CHF, ischemic cardiomyopathy presented to [place] with complaints of increased shortness of breath and productive cough. Patient was recently hospitalized a month, for respiratory failure, pneumonia, fluid overload and a He was discharged 2 days ago. He reports that he had increasing shortness of breath and productive cough since his discharge. He also endorses diffuse swelling. He denies any fever, chills or sweats. He denies any nausea vomiting or diarrhea. Evaluation at [facility] ER showed elevated white blood cell count 29.8. He was hypoxic, ABG initially showed a PO2 of 27 and oxygen saturation of 43%, which improved after diuresis and nebulizers to 73 and 94% respectively. Troponin was elevated at 0.06, BNP was elevated at 1128. He is hyperglycemic with glucose of 332. Review showed stable cardiomegaly and stable scarring and postsurgical changes at right base and right middle lobe. He was given Bumex, Zosyn, and DuoNeb treatments. On exam, patient alert and oriented, in no acute distress. Heart has regular rate and rhythm, lungs have diffuse rales and rhonchi. He is diffusely swollen with anasarca, with +3-4 pitting edema in bilateral lower extremities distended abdomen. Past Med Surg Social Fam HX - Past Medical History Medical history: atrial fibrillation, CHF, COPD, coronary artery disease, diabetes, GERD, hyperlipidemia, hypertension, myocardial infarction Psychiatric history: anxiety - Past Surgical History Surgical History: angioplasty/stent, appendectomy - Social History Smoking Status: Former smoker (80 pack year history) Packs per day: 2 Smokeless Tobacco Status: No Alcohol use: none Drug use: none - Family History Sister Adopted: No Family Member Ethnicity: Non- Living Status: Still Living Hx Family Cardiac Disorders: No Hx Family Respiratory Disorders: No Hx Family Cancer: Yes Hx Family GI Disorders: No Hx Family Endocrine Disorder: No (Possiblke thyroid) Hx Family Neuromuscular Disorders: No Hx Family Neurologic Disorders: No Hx Family HEENT Disorders: No Hx Family Autoimmune Disorders: No Brother Living Status: Still Living Hx Family Cardiac Disorders: Yes Father Living Status: Cause of : Pancreatic cancer Hx Family Cancer: Yes Mother Living Status: Hx Family Cardiac Disorders: Yes Hx Family Endocrine Disorder: Yes (diabetes) Internal Medicine - H&P: Meds Gabapentin [Neurontin] 600 mg PO TID 12/11/16 [History] Omeprazole [PriLOSEC] 20 mg PO DAILY 12/11/16 [History] HYDROcodone/Acet 7.5/325 mg [[place] 7.5-325 mg] 1 tab PO Q6H PRN 12/17/16 [ History] Atorvastatin [Lipitor] 20 mg PO HS #30 tablet 12/23/16 [Rx] Clopidogrel [Plavix] 75 mg PO DAILY #30 tablet 12/23/16 [Rx] Nitroglycerin 0.4 mg SL Q5MIN PRN #30 tab.subl 12/23/16 [Rx] Ipratropium/Albuterol Neb [Duoneb] 3 ml IH QIDR #100 inhsol 12/28/16 [Rx] Magnesium Oxide [Mag-Ox] 400 mg PO BID #60 tablet 03/22/17 [Rx] Cholecalciferol (Vitd3)/Vit K2 [D3 + K2 Dots 1,000 Units Tab] 2 each PO DAILY [History] Docusate [Colace] 100 mg PO DAILY 07/31/17 [History] Ferrous Sulfate [Iron] 325 mg PO BID 07/31/17 [History] Insulin ASPART [Novolog Flexpen] 0 unit SQ ACHS 07/31/17 [History] Polyethylene Glycol 3350 [MiraLAX] 17 gm PO DAILY 07/31/17 [History] Bumetanide [Bumex] 1 mg PO DAILY 08/01/17 [History] Gemfibrozil [Lopid] 600 mg PO BID 08/01/17 [History] Metformin HCl [Glucophage] 1,000 mg PO BID 08/01/17 [History] Potassium Chloride [Klor-Con 10] 10 meq PO DAILY 08/01/17 [History] Spironolactone [Aldactone] 25 mg PO DAILY 08/01/17 [History] 3 Allergy/AdvReac Type Severity Reaction Status Date / Time No Known Allergies Allergy Verified 08/01/17 09:44 All Systems PM: A 10-system review of systems was performed and is negative for pertinent findings except as documented above in the HPI. - Constitutional Constitutional: no chills, no fever(s), no night sweats - EENT Eyes: no change in vision, no discharge, no pain, no photophobia Ears: no ear discharge, no ear pain, no tinnitus Nose, mouth and throat: no dysphagia, no nasal discharge, no neck pain, no sore throat - Cardiovascular Cardiovascular ROS IM: dyspnea, dyspnea on exertion, edema, no chest pain, no diaphoresis, no lightheadedness, no palpitations, no syncope - Respiratory Respiratory: cough, dyspnea, dyspnea on exertion, excessive phlegm production, no wheezing - Gastrointestinal Gastrointestinal: no abdominal pain, no diarrhea, no hematemesis, no hematochezia, no melena, no nausea, no vomiting - Musculoskeletal Musculoskeletal ROS IM: no numbness, no tingling - Integumentary Integumentary IM: no rash, no unusual bruising - Neurological Neurological ROS: no confusion, no convulsions, no focal weakness, no numbness, no tingling, no tremor(s) - Hematologic/Lymphatic Hematologic/Lymphatic: no easy bruising - Constitutional Vitals: Temp Pulse Resp BP Pulse Ox 98.3 F 105 16 115/80 97 07/31/17 16:40 07/31/17 16:40 07/31/17 16:40 07/31/17 16:40 07/31/17 16:40 General appearance: Present: A&O X 3, pleasant, no acute distress - Head Head exam: Present: atraumatic, normocephalic - Eye Eye exam: Present: PERRL, conjuntiva pink, sclera anicteric Pupils: Present: PERRL - Neck Neck exam general surgery: Present: supple, trachea midline. Absent: lymphadenopathy - Respiratory Respiratory exam: Present: rales, rhonchi. Absent: accessory muscle use, wheezes - Cardiovascular Cardiovascular exam: Present: RRR, +S1, +S2. Absent: diastolic murmur, gallop, rubs, systolic murmur - GI/Abdominal GI/Abdominal exam: Present: distended, normal bowel sounds, soft, no peritoneal signs. Absent: tenderness Additional comments: ascites - Extremities Exam Extremities exam: Present: pedal edema, warm, radial pulses palpable and symmetrical. Absent: calf tenderness, cyanotic Additional comments: Significant edema, with +3-4 pitting edema in BLE and anasarca - Neurological Exam Neurological exam: Present: CN II-XII intact, oriented X3, no focal deficits. Absent: pronater drift, facial droop, speech deficit - Skin Skin exam: Present: dry, intact Internal Med - H&P Results - Labs Labs: Labs from [place]: WBC 29.8 Plt 157 Hgb 9.5 Hct 32.6 Na 135 K 4.8 Cl 93 CO2 29 BUN 29 Cr 1.02 Glu 332 Trop 0.06 BNP 1128 <Ananth Brower - Last Filed: 08/01/17 18:07> Date of Encounter: 08/01/17 Internal Medicine - H&P: HPI History of present illness: Mr. Ruiz is a 57 year old male All Systems PM: A 10-system review of systems was performed and is negative for pertinent findings except as documented above in the HPI. - Constitutional Vitals: Temp Pulse Resp BP Pulse Ox 98.3 F 106 18 109/70 95 08/01/17 15:49 08/01/17 15:49 08/01/17 15:53 08/01/17 15:33 08/01/17 15:53 Internal Med - H&P Results - Labs CBC & Chem 7: 08/01/17 01:12 08/01/17 01:12 Labs: Short CBC 08/01/17 Range/Units 01:12 WBC 26.7 H (4.3-11.1) K/mcL Hgb 8.4 L (12.9-16.9) g/dL Hct 29.3 L (37.5-50.1) % Plt Count 139 L (140-400) K/mcL Neutrophils # 23.3 H (1.6-8.9) K/mcL BMP 08/01/17 01:12 Sodium 137 Potassium 3.7 D Chloride 94 L Carbon Dioxide 34 H BUN 27 H Creatinine 1.07 Glucose 246 H Calcium 8.8 Cardiac Enzymes 07/31/17 08/01/17 08/01/17 Range/Units 18:53 01:12 07:01 Troponin I 0.05 H* 0.06 H* 0.06 H* (0-0.03) ng/mL - ABG Interpretation ABG results: 08/01/17 05:05 ABG pH 7.45 ABG pCO2 62 H ABG pO2 80 L ABG HCO3 43 H ABG Total CO2 45 H ABG O2 Saturation 96 ABG Base Excess 16.7 H - Attending Attestation I have personally performed a face to face evaluation on this patient and I discussed the assessment and plan with the nurse practitioner. I have reviewed and agree with the documented care plan. History and Exam by me shows: Mr. Ruiz is a 57 year old male with hypertension, hyperlipidemia type 2 diabetes, interstitial lung disease, COPD, CHF, ischemic cardiomyopathy presented to [place] with complaints of increased shortness of breath and productive cough. Patient was recently hospitalized a month, for respiratory failure, pneumonia, fluid overload and a He was discharged 2 days ago. He reports that he had increasing shortness of breath and productive cough since his discharge. He also endorses diffuse swelling. He denies any fever, chills or sweats. He denies any nausea vomiting or diarrhea. Evaluation at [place] ER showed elevated white blood cell count 29.8. He was hypoxic, ABG initially showed a PO2 of 27 and oxygen saturation of 43%, which improved after diuresis and nebulizers to 73 and 94% respectively. Troponin was elevated at 0.06, BNP was elevated at 1128. He is hyperglycemic with glucose of 332. Review showed stable cardiomegaly and stable scarring and postsurgical changes at right base and right middle lobe. He was given Bumex, Zosyn, and DuoNeb treatments. Gen: A,A<O x3 Chest : Diminished BS b/l, Crackles + Rales+ Heart : S1 S2+ a/p 1. Acute CHF exacerbation 2. Diffuse anasarca Cont IV lasix and resume all other home meds will give Metolazone 3. Acute COPD exacerbation mostly due to CHF exacerbation Cont Duoneb and cont home dose PO steroids
[2017-07-31] MEDS ORDERED: Vancomycin 1,250 MG in D5% in Water 250 ML IVPB SCH (19:00)
[2017-07-31] MEDS ORDERED: Vancomycin 1,500 MG in D5% in Water 250 ML IVPB SCH (19:00)
[2017-07-31] MEDS: Ipratropium/Albuterol Neb 3 ML IH SCH ×2 (19:26→22:22)
[2017-07-31 19:28] LABS: Hemoglobin A1C 8.2 %
[2017-07-31] MEDS ORDERED: *HR* HYDROcodone/Acet 7.5/325 mg TABLET PO PRN (19:59)
[2017-07-31] MEDS ORDERED: Nitroglycerin 0.4 MG TAB.SUBL SL PRN (19:59)
[2017-07-31] MEDS: Furosemide 40 MG/4 ML VIAL IVP SCH (20:17)
[2017-07-31] MEDS: Cefepime HCl 2,000 MG in D5% in Water (Mini-Bag+) 100 ML IVPB SCH (20:23)
[2017-07-31] MEDS: Insulin DETEMIR 100 UNIT/ML X5UNITS SQ SCH (20:27)
[2017-07-31] MEDS: Insulin LISPRO 300 UNITS/3 ML VIAL SQ SCH ×2 (20:27)
[2017-07-31] MEDS: Gabapentin 300 MG CAPSULE PO SCH (21:17)
[2017-07-31] MEDS: Budesonide/Formoterol 160/4.5 MDI IH SCH (22:22)
[2017-07-31] MEDS: *HR* HYDROcodone/Acet 7.5/325 mg TABLET PO PRN (23:13)
[2017-08-01 01:29] LABS: Basophils % 0.1 %; Eosinophils % 0.1 %; Monocytes % 7.2 %; Nucleated Red Blood Cells 0.1 /100 WBC (0)
[2017-08-01 01:30] LABS: Hematocrit 29.3 % (37.5-50.1); Hemoglobin 8.4 g/dL (12.9-16.9); Lymphocytes # 1.2 K/mcL (0.6-4.6); Lymphocytes % 4.4 %; Mean Corpuscular HGB Conc 28.7 g/dL (31.6-35.5); Mean Corpuscular Hemoglobin 21.9 pg (28.0-33.3); Mean Corpuscular Volume 76.3 fL (83.0-100.0); Mean Platelet Volume 10.7 fL (9.4-12.4); Monocytes # 1.9 K/mcL (0.0-1.3); Neutrophils # 23.3 K/mcL (1.6-8.9); Platelet Count 139 K/mcL (140-400); Red Blood Count 3.84 M/mcL (4.19-5.50); Red Cell Distribution Width 22.6 % (11.5-14.5); Segmented Neutrophils % 87.2 %
[2017-08-01 01:44] LABS: BUN/Creatinine Ratio 25 (6-26); Blood Urea Nitrogen 27 mg/dL (8-26); Calcium 8.8 mg/dL (8.6-10.8); Carbon Dioxide 34 mEq/L (19-29); Chloride 94 mEq/L (98-109); Chol/HDL Ratio 2.2 (0-4.9); Cholesterol 122 mg/dL (< 200); Glucose 246 mg/dL (70-99); HDL Cholesterol 55 mg/dL (40-59); LDL Cholesterol,Calculated 54 mg/dL (0-99); Osmolality,Calculated 297 (280-300); Potassium 3.7 mEq/L (3.5-4.5); Sodium 137 mEq/L (136-145); Triglycerides 64 mg/dL (< 150); eGFR For African Americans > 60 (> 60); eGFR For Non-African Americans > 60 (> 60)
[2017-08-01 02:40] LABS: Anisocytosis 2+ (Not Present); Hypochromasia Present (Not Present); Platelet Estimate Slight Decrease (Normal); Polychromasia 1+ (Not Present)
[2017-08-01] MEDS: Cefepime HCl 2,000 MG in D5% in Water (Mini-Bag+) 100 ML IVPB SCH ×3 (04:00→20:05)
[2017-08-01] MEDS: Furosemide 40 MG/4 ML VIAL IVP SCH ×3 (04:01→20:01)
[2017-08-01] MEDS: Ipratropium/Albuterol Neb 3 ML IH SCH ×4 (05:07→23:05)
[2017-08-01 05:16] LABS: ABG Base Excess 16.7 mEq/L (-2.0 to 3.0); ABG HCO3 43 mEq/L (21-27); ABG Oxygen Saturation 96 % (95-98); ABG PCO2 62 mmHg (35-45); ABG PH 7.45 pH Units (7.32-7.45); ABG PO2 80 mmHg (85-104); ABG TCO2 45 mEq/L (20-26)
[2017-08-01 05:22] LABS: Blood Gas FiO2 32 %; Blood Gas Modality NC
[2017-08-01] MEDS: Insulin LISPRO 300 UNITS/3 ML VIAL SQ SCH ×4 (08:23→20:07)
[2017-08-01] MEDS: Gabapentin 300 MG CAPSULE PO SCH ×3 (08:33→20:06)
[2017-08-01] MEDS: DALIRESP 500 MCG PO SCH (08:33)
[2017-08-01] MEDS: *HR* HYDROcodone/Acet 7.5/325 mg TABLET PO PRN ×2 (08:42→17:40)
[2017-08-01] MEDS: Vancomycin 1,500 MG in D5% in Water 250 ML IVPB SCH ×2 (08:43→20:47)
[2017-08-01] MEDS: Budesonide/Formoterol 160/4.5 MDI IH SCH ×2 (11:10→23:05)
--- NOTE | 2017-08-01 11:29 | Internal Med Progress Note ---
Date of Encounter: 08/01/17 Time of Encounter: 11:10 - Assessment and plan (1) Acute on chronic respiratory failure with hypoxemia Current Visit: Yes Status: Acute Assessment and plan: Patient has worsening pedal edema and dyspnea; just discharged from [facility] about 2-3 days prior to this admission. Discharge records from there reviewed- he was treated for acute on chronic respiratory failure, s/p intubation and extubation, following a cardiac arrest. Continue treatment for volume overload and possible Pneumonia. ABGs reviewed- normal pH; initial low pO2 may be from venous sample; currently improving oxygenation. (2) Congestive heart failure Current Visit: Yes Status: Acute Assessment and plan: Echocardiogram from Dec 2016 shows moderately decreased EF around 40%, LV dilation, moderate pulmonary HTN. Continue IV Lasix; he is not on beta humberto or ACEI; he did have issues with hypotension during his previous admissions and his antihypertensives were held; he is noted to be on Bumex and Spironolactone at home. Continue fluid restriction and urine output monitoring. Qualifiers: Congestive heart failure type: systolic Congestive heart failure chronicity : acute on chronic Qualified Code(s): I50.23 - Acute on chronic systolic ( congestive) heart failure (3) Pneumonia Current Visit: Yes Status: Suspected Assessment and plan: Chest XRay shows chronic interstitial changes and right basal infiltrates, may be chronic due to scarring, as similar changes are present in prior imaging studies. F/up blood cultures, continue IV Vancomycin and Cefepime for now and de =escalate after culture results. Continue supplemental O2. Supportive care. Qualifiers: Pneumonia type: due to unspecified organism Laterality: right Lung location: lower lobe of lung Qualified Code(s): J18.1 - Lobar pneumonia, unspecified organism (4) Elevated troponin Current Visit: Yes Status: Acute Assessment and plan: likely demand ischemia due to underlying hypoxemia. Serial Troponins flat and adynamic. Continue to monitor. (5) Interstitial lung disease Current Visit: Yes Status: Chronic (6) Diabetes mellitus type 2 in nonobese Current Visit: Yes Status: Chronic Assessment and plan: Continue [place] blood glucose monitoring with sliding scale insulin; diabetic diet; (7) Pulmonary hypertension Current Visit: Yes Status: Chronic (8) Coronary artery disease Current Visit: Yes Status: Chronic Assessment and plan: Received stents in Dec 2016. Continue Plavix and statin. Qualifiers: Coronary Disease-Associated Artery/Lesion type: [place] artery [place] vs. transplanted heart: [place] heart Associated angina: without angina Qualified Code(s): I25.10 - Atherosclerotic heart disease of [place] coronary artery without angina pectoris (9) Atrial fibrillation Current Visit: Yes Status: Chronic Assessment and plan: currently rate-controlled; not on anticoagulation due to bleeding complications in the past. Qualifiers: Atrial fibrillation type: paroxysmal Qualified Code(s): I48.0 - Paroxysmal atrial fibrillation (10) Leukocytosis Current Visit: Yes Status: Chronic Assessment and plan: acute on chronic; follows with Hematology; he was discharged from [facility] on steroid taper- elevated WBC may be due to stress and steroid use; Qualifiers: Leukocytosis type: unspecified Qualified Code(s): D72.829 - Elevated white blood cell count, unspecified (11) Anemia Current Visit: Yes Status: Chronic Qualifiers: Anemia type: iron deficiency Iron deficiency anemia type: unspecified iron deficiency Qualified Code(s): D50.9 - Iron deficiency anemia, unspecified (12) COPD (chronic obstructive pulmonary disease) Current Visit: Yes Status: Chronic Assessment and plan: continue PRN bronchodilators and supplemental O2; he is on home O2; Qualifiers: COPD type: chronic bronchitis Chronic bronchitis type: simple Qualified Code(s): J41.0 - Simple chronic bronchitis - Subjective Interval history: Reports some shortness of breath; no chest pain, fever/chills, cough. Has leg swelling, getting worse; does not know a lot of medical details, spoke to his over the phone and obtained history; - Constitutional Vitals: Temp Pulse Resp BP Pulse Ox 97.7 F 92 18 114/79 92 08/01/17 07:41 08/01/17 07:41 08/01/17 11:12 08/01/17 07:41 08/01/17 11:12 General appearance: Present: A&O X 3 (facial puffiness noted), answers questions appropriately - Respiratory Respiratory exam: Present: CTAB, rales (B/L coarse breath sounds with basal crepts). Absent: accessory muscle use, rhonchi, wheezes - Cardiovascular Cardiovascular exam: Present: RRR, +S1, +S2. Absent: diastolic murmur, gallop, rubs, systolic murmur - GI/Abdominal GI/Abdominal exam: Present: distended (abdominal wall subcutaneous edema), normal bowel sounds, soft, no peritoneal signs. Absent: tenderness - Extremities Exam Extremities exam: Present: pedal edema (3+ pitting pedal edema B/L LE upto thighs), warm, radial pulses palpable and symmetrical. Absent: calf tenderness , cyanotic - Neurological Exam Neurological exam: Present: CN II-XII intact, oriented X3, no focal deficits. Absent: pronater drift, facial droop, speech deficit Internal Medicine: Result - Labs CBC & Chem 7: 08/01/17 01:12 08/01/17 01:12 Labs: Short CBC 08/01/17 Range/Units 01:12 WBC 26.7 H (4.3-11.1) K/mcL Hgb 8.4 L (12.9-16.9) g/dL Hct 29.3 L (37.5-50.1) % Plt Count 139 L (140-400) K/mcL Neutrophils # 23.3 H (1.6-8.9) K/mcL BMP 08/01/17 01:12 Sodium 137 Potassium 3.7 D Chloride 94 L Carbon Dioxide 34 H BUN 27 H Creatinine 1.07 Glucose 246 H Calcium 8.8 Cardiac Enzymes 07/31/17 08/01/17 08/01/17 Range/Units 18:53 01:12 07:01 Troponin I 0.05 H* 0.06 H* 0.06 H* (0-0.03) ng/mL - ABG Interpretation ABG results: ABG ABG pH 7.45 pH Units (7.32-7.45) 08/01/17 05:05 ABG pCO2 62 mmHg (35-45) H 08/01/17 05:05 ABG pO2 80 mmHg (85-104) L 08/01/17 05:05 ABG O2 Saturation 96 % (95-98) 08/01/17 05:05 Consult Discharge Plan - Plan Referrals: Tawanda Chi MD [Primary Care Provider] -
[2017-08-01] MEDS: Insulin DETEMIR 100 UNIT/ML X5UNITS SQ SCH (20:07)
[2017-08-02] MEDS: Furosemide 40 MG/4 ML VIAL IVP SCH ×3 (03:18→17:17)
[2017-08-02] MEDS: Cefepime HCl 2,000 MG in D5% in Water (Mini-Bag+) 100 ML IVPB SCH ×3 (03:19→21:47)
[2017-08-02] MEDS: Ipratropium/Albuterol Neb 3 ML IH SCH ×4 (04:41→22:08)
[2017-08-02] MEDS ORDERED: Aminoglycoside Consult 1 EACH MC ONE (07:35)
[2017-08-02] MEDS: Gabapentin 300 MG CAPSULE PO SCH ×3 (07:59→21:48)
[2017-08-02] MEDS: Insulin LISPRO 300 UNITS/3 ML VIAL SQ SCH ×4 (08:00→21:49)
[2017-08-02] MEDS: *HR* HYDROcodone/Acet 7.5/325 mg TABLET PO PRN (08:04)
[2017-08-02 08:54] LABS: Hematocrit 33.4 % (37.5-50.1); Hemoglobin 9.2 g/dL (12.9-16.9); Mean Corpuscular HGB Conc 27.5 g/dL (31.6-35.5); Mean Corpuscular Hemoglobin 21.9 pg (28.0-33.3); Mean Corpuscular Volume 79.5 fL (83.0-100.0); Mean Platelet Volume 11.3 fL (9.4-12.4); Platelet Count 142 K/mcL (140-400); Red Cell Distribution Width 24.3 % (11.5-14.5)
[2017-08-02 09:07] LABS: BUN/Creatinine Ratio 25 (6-26); Blood Urea Nitrogen 22 mg/dL (8-26); Calcium 9.3 mg/dL (8.6-10.8); Carbon Dioxide 37 mEq/L (19-29); Chloride 93 mEq/L (98-109); Glucose 133 mg/dL (70-99); Osmolality,Calculated 295 (280-300); Potassium 3.6 mEq/L (3.5-4.5); Sodium 140 mEq/L (136-145); eGFR For African Americans > 60 (> 60); eGFR For Non-African Americans > 60 (> 60)
[2017-08-02] MEDS: Budesonide/Formoterol 160/4.5 MDI IH SCH ×2 (10:37→22:08)
[2017-08-02] MEDS: DALIRESP 500 MCG PO SCH (10:59)
[2017-08-02] MEDS: Vancomycin 1,500 MG in D5% in Water 250 ML IVPB SCH (11:05)
[2017-08-02] MEDS ORDERED: Vancomycin 1,000 MG in D5% in Water 250 ML IVPB SCH (12:00)
[2017-08-02 12:06] LABS: Anisocytosis 3+ (Not Present); Lymphocytes # 1.9 K/mcL (0.6-4.6); Monocytes # 1.2 K/mcL (0.0-1.3)
[2017-08-02 12:07] LABS: Hypochromasia Present (Not Present); Microcytosis Present (Not Present); Polychromasia 1+ (Not Present); Target Cells 1+ (Not Present)
[2017-08-02 12:08] LABS: Platelet Estimate Normal (Normal); Poikilocytosis 1+ (Not Present)
--- NOTE | 2017-08-02 16:26 | Internal Med Progress Note ---
<Dionte Jimenez - Last Filed: 08/02/17 16:23> Date of Encounter: 08/02/17 Time of Encounter: 16:23 - Assessment and plan (1) Acute on chronic respiratory failure with hypoxemia Current Visit: Yes Status: Acute Assessment and plan: Secondary to CHF exacerbation, pneumonia. Continue diuresis and cefepime. (2) Acute on chronic systolic (congestive) heart failure Current Visit: Yes Status: Acute Assessment and plan: Previous echo shows EF of 40% with abnormal septal motion, dilated right ventricle, moderate pulmonary hypertension.\ Continue diuresis. Patient educated on low salt, fluid restricted diet. (3) Coronary artery disease Current Visit: Yes Status: Chronic Qualifiers: Coronary Disease-Associated Artery/Lesion type: [place] artery [place] vs. transplanted heart: [place] heart Associated angina: without angina Qualified Code(s): I25.10 - Atherosclerotic heart disease of [place] coronary artery without angina pectoris (4) Diabetes mellitus type 2 in nonobese Current Visit: Yes Status: Chronic Assessment and plan: Controlled. Continue diabetic diet. Continue SS insulin. (5) Elevated troponin Current Visit: Yes Status: Acute Assessment and plan: Adynamic. Likely secondary to demand ischemia. (6) Leukocytosis Current Visit: Yes Status: Chronic Assessment and plan: acute on chronic; follows with Hematology; Negative for hepatitis Peripheral blood smear negative BCR/ABL negative Follow up outpatient with oncology Qualifiers: Leukocytosis type: unspecified Qualified Code(s): D72.829 - Elevated white blood cell count, unspecified (7) Pneumonia Current Visit: Yes Status: Suspected Assessment and plan: Patient does not report symptoms of coughing, and is using home oxygen at 3 L. pneumonia suspected but less likely. We will continue cefepime and likewise discontinued. De-escalate according to culture sensitivities. Qualifiers: Pneumonia type: due to unspecified organism Laterality: right Lung location: lower lobe of lung Qualified Code(s): J18.1 - Lobar pneumonia, unspecified organism (8) Atrial flutter Current Visit: Yes Status: Acute Assessment and plan: After left heart catheterization in December patient had episode of a flutter Patient was initially started on xarelto this was discontinued due to nosebleeds. Currently regular rate and rhythm Qualifiers: Atrial flutter type: unspecified Qualified Code(s): I48.92 - Unspecified atrial flutter - Subjective Interval history: Patient reports improved shortness of breath and lower extremity swelling. I spoke to patient's today who states he is compliant with his medications however does drink over 2 L of water and Gatorade. Denies chest pain, palpitations, abdominal pain, nausea, vomiting, lower extremity pain, numbness, tingling. - Constitutional Vitals: Temp Pulse Resp BP Pulse Ox 97.9 F 110 17 124/81 98 08/02/17 07:00 08/02/17 15:00 08/02/17 15:41 08/02/17 15:00 08/02/17 15:41 General appearance: Present: A&O X 3 (facial puffiness noted), answers questions appropriately Internal Medicine: Result - Labs CBC & Chem 7: 08/02/17 08:26 08/02/17 08:26 Labs: Short CBC 08/02/17 Range/Units 08:26 WBC 19.1 H (4.3-11.1) K/mcL Hgb 9.2 L (12.9-16.9) g/dL Hct 33.4 L (37.5-50.1) % Plt Count 142 (140-400) K/mcL Neutrophils # 16.0 H (1.6-8.9) K/mcL BMP 08/02/17 08:26 Sodium 140 Potassium 3.6 Chloride 93 L Carbon Dioxide 37 H BUN 22 Creatinine 0.88 Glucose 133 H Calcium 9.3 - ABG Interpretation ABG results: ABG ABG pH 7.45 pH Units (7.32-7.45) 08/01/17 05:05 ABG pCO2 62 mmHg (35-45) H 08/01/17 05:05 ABG pO2 80 mmHg (85-104) L 08/01/17 05:05 ABG O2 Saturation 96 % (95-98) 08/01/17 05:05 Consult Discharge Plan - Plan Additional Instructions: pcp requested Referrals: Tawanda Chi MD [Primary Care Provider] - 08/08/17 10:30 am <Janusz Ponce - Last Filed: 08/02/17 17:54> Date of Encounter: 08/02/17 - Assessment and plan (1) Acute on chronic respiratory failure with hypoxemia Current Visit: Yes Status: Acute (2) Acute on chronic systolic (congestive) heart failure Current Visit: Yes Status: Acute (3) Coronary artery disease Current Visit: Yes Status: Chronic Qualifiers: Coronary Disease-Associated Artery/Lesion type: [place] artery [place] vs. transplanted heart: [place] heart Associated angina: without angina Qualified Code(s): I25.10 - Atherosclerotic heart disease of [place] coronary artery without angina pectoris (4) Type 2 diabetes mellitus Current Visit: Yes Status: Chronic Qualifiers: Diabetes mellitus complication status: with hyperglycemia Diabetes mellitus snf insulin use: with snf use Qualified Code(s): E11.65 - Type 2 diabetes mellitus with hyperglycemia; Z79.4 - prison (current) use of insulin (5) Interstitial lung disease Current Visit: No Status: Chronic - Constitutional Vitals: Temp Pulse Resp BP Pulse Ox 97.9 F 110 17 124/81 98 08/02/17 07:00 08/02/17 15:00 08/02/17 15:41 08/02/17 15:00 08/02/17 15:41 Internal Medicine: Result - Labs CBC & Chem 7: 08/02/17 08:26 08/02/17 08:26 Labs: Short CBC 08/02/17 Range/Units 08:26 WBC 19.1 H (4.3-11.1) K/mcL Hgb 9.2 L (12.9-16.9) g/dL Hct 33.4 L (37.5-50.1) % Plt Count 142 (140-400) K/mcL Neutrophils # 16.0 H (1.6-8.9) K/mcL BMP 08/02/17 08:26 Sodium 140 Potassium 3.6 Chloride 93 L Carbon Dioxide 37 H BUN 22 Creatinine 0.88 Glucose 133 H Calcium 9.3 - ABG Interpretation ABG results: ABG ABG pH 7.45 pH Units (7.32-7.45) 08/01/17 05:05 ABG pCO2 62 mmHg (35-45) H 08/01/17 05:05 ABG pO2 80 mmHg (85-104) L 08/01/17 05:05 ABG O2 Saturation 96 % (95-98) 08/01/17 05:05 - Attending Attestation I examined this patient and my medical decision-making was reviewed with the Resident Physician on 08/02/17. I agree with the documented findings, disposition and treatment plan as described except to the extent set forth below. Mr. Ruiz is currently admitted for acute exac CHF and possible PNA. He remains moderate to high risk due to potential for worsening respiratory and cardiac status. Mr. Ruiz feels he has diuresed a lot today. No CP at this time. Breathing somewhat better. No fever or chills. No GI issues. Exam Alert. Comfortable Heart reg Lungs with some rales. Abd soft Edema present I/P 1. Exac CHF 2. Probable PNA Further diagnoses and plan as above.
[2017-08-02] MEDS: Insulin DETEMIR 100 UNIT/ML X5UNITS SQ SCH (21:48)
[2017-08-03] MEDS: *HR* HYDROcodone/Acet 7.5/325 mg TABLET PO PRN ×3 (01:20→16:31)
[2017-08-03] MEDS: Cefepime HCl 2,000 MG in D5% in Water (Mini-Bag+) 100 ML IVPB SCH (02:22)
[2017-08-03] MEDS: Furosemide 40 MG/4 ML VIAL IVP SCH (02:22)
[2017-08-03] MEDS: Ipratropium/Albuterol Neb 3 ML IH SCH ×4 (05:05→23:40)
[2017-08-03 06:41] LABS: Basophils % 0.1 %; Hematocrit 30.4 % (37.5-50.1); Platelet Count 124 K/mcL (140-400)
[2017-08-03 06:42] LABS: Eosinophils # 0.1 K/mcL (0.0-0.6); Eosinophils % 0.6 %; Hemoglobin 8.5 g/dL (12.9-16.9); Immature Granulocytes % 0.5 % (0-4); Lymphocytes # 1.4 K/mcL (0.6-4.6); Lymphocytes % 7.7 %; Mean Corpuscular Volume 78.8 fL (83.0-100.0); Mean Platelet Volume 10.6 fL (9.4-12.4); Monocytes # 1.3 K/mcL (0.0-1.3); Monocytes % 7.5 %; Neutrophils # 14.9 K/mcL (1.6-8.9); Red Blood Count 3.86 M/mcL (4.19-5.50); Red Cell Distribution Width 24.2 % (11.5-14.5); Segmented Neutrophils % 83.6 %
[2017-08-03 06:51] LABS: BUN/Creatinine Ratio 28 (6-26); Blood Urea Nitrogen 23 mg/dL (8-26); Calcium 9.2 mg/dL (8.6-10.8); Chloride 92 mEq/L (98-109); Glucose 162 mg/dL (70-99); Osmolality,Calculated 299 (280-300); Potassium 3.3 mEq/L (3.5-4.5); Sodium 141 mEq/L (136-145); eGFR For African Americans > 60 (> 60); eGFR For Non-African Americans > 60 (> 60)
[2017-08-03 06:53] LABS: Carbon Dioxide 43 mEq/L (19-29)
[2017-08-03 08:23] LABS: Anisocytosis 2+ (Not Present); Microcytosis Present (Not Present); Platelet Estimate Normal (Normal)
[2017-08-03 08:24] LABS: Hypochromasia Present (Not Present); Target Cells 1+ (Not Present)
--- NOTE | 2017-08-03 08:54 | Internal Med Progress Note ---
<Dionte Jimenez - Last Filed: 08/03/17 09:00> Date of Encounter: 08/03/17 Time of Encounter: 08:51 - Assessment and plan (1) Acute on chronic respiratory failure with hypoxemia Current Visit: Yes Status: Acute Assessment and plan: Secondary to CHF exacerbation, pneumonia. Continue diuresis. Will decrease dose of lasix as patient BP 90s/80s and patient developing contraction alkalosis and hypokalemia. cefepime d/c and patient started on levaquin. (2) Acute on chronic systolic (congestive) heart failure Current Visit: Yes Status: Acute Assessment and plan: Previous echo shows EF of 40% with abnormal septal motion, dilated right ventricle, moderate pulmonary hypertension.\ Continue diuresis. Decreased lasix dose -2000cc output yesterday. Patient educated on low salt, fluid restricted diet. (3) Pneumonia Current Visit: Yes Status: Suspected Assessment and plan: Patient does not report symptoms of coughing, and is using home oxygen at 3 L. pneumonia suspected but less likely. cefepime d/c and patient started on levaquin. Qualifiers: Pneumonia type: due to unspecified organism Laterality: right Lung location: lower lobe of lung Qualified Code(s): J18.1 - Lobar pneumonia, unspecified organism (4) Coronary artery disease Current Visit: Yes Status: Chronic Assessment and plan: Received stents in Dec 2016. Continue Plavix and statin and aspirin. Qualifiers: Coronary Disease-Associated Artery/Lesion type: [place] artery [place] vs. transplanted heart: [place] heart Associated angina: without angina Qualified Code(s): I25.10 - Atherosclerotic heart disease of [place] coronary artery without angina pectoris (5) Diabetes mellitus type 2 in nonobese Current Visit: Yes Status: Chronic Assessment and plan: Controlled. Continue diabetic diet. Continue SS insulin. (6) Elevated troponin Current Visit: Yes Status: Acute Assessment and plan: Adynamic. Likely secondary to demand ischemia. (7) Leukocytosis Current Visit: Yes Status: Chronic Assessment and plan: acute on chronic; follows with Hematology; Negative for hepatitis Peripheral blood smear negative BCR/ABL negative Follow up outpatient with oncology Qualifiers: Leukocytosis type: unspecified Qualified Code(s): D72.829 - Elevated white blood cell count, unspecified (8) Atrial flutter Current Visit: Yes Status: Acute Assessment and plan: After left heart catheterization in December patient had episode of a flutter Patient was initially started on xarelto this was discontinued due to nosebleeds. Currently regular rate and rhythm Qualifiers: Atrial flutter type: unspecified Qualified Code(s): I48.92 - Unspecified atrial flutter - Subjective Interval history: Patient states his sob is improving. He denies chest pain, abdominal pain, N/V. Reports coughing, non productive. - Constitutional Vitals: Temp Pulse Resp BP Pulse Ox 98.1 F 96 16 87/72 99 08/03/17 08:01 08/03/17 08:01 08/03/17 08:01 08/03/17 08:01 08/03/17 08:01 General appearance: Present: A&O X 3 (facial puffiness noted), answers questions appropriately - Respiratory Respiratory exam: Present: rales (b/l basilar rales) - Cardiovascular Cardiovascular exam: Present: RRR, +S1, +S2. Absent: diastolic murmur, gallop, rubs, systolic murmur - GI/Abdominal GI/Abdominal exam: Present: normal bowel sounds, soft, no peritoneal signs. Absent: distended, tenderness - Extremities Exam Extremities exam: Present: pedal edema (2+ b/l ), warm, radial pulses palpable and symmetrical. Absent: calf tenderness, cyanotic Internal Medicine: Result - Labs CBC & Chem 7: 08/03/17 06:32 08/03/17 06:32 Labs: Short CBC 08/02/17 08/03/17 Range/Units 08:26 06:32 WBC 19.1 H 17.8 H (4.3-11.1) K/mcL Hgb 9.2 L 8.5 L (12.9-16.9) g/dL Hct 33.4 L 30.4 L (37.5-50.1) % Plt Count 142 124 L (140-400) K/mcL Neutrophils # 16.0 H 14.9 H (1.6-8.9) K/mcL BMP 08/02/17 08/03/17 08:26 06:32 Sodium 140 141 Potassium 3.6 3.3 L Chloride 93 L 92 L Carbon Dioxide 37 H 43 H* BUN 22 23 Creatinine 0.88 0.81 Glucose 133 H 162 H Calcium 9.3 9.2 - ABG Interpretation ABG results: ABG ABG pH 7.45 pH Units (7.32-7.45) 08/01/17 05:05 ABG pCO2 62 mmHg (35-45) H 08/01/17 05:05 ABG pO2 80 mmHg (85-104) L 08/01/17 05:05 ABG O2 Saturation 96 % (95-98) 08/01/17 05:05 Consult Discharge Plan - Plan Additional Instructions: pcp requested Referrals: Tawanda Chi MD [Primary Care Provider] - 08/08/17 10:30 am <Janusz Ponce - Last Filed: 08/03/17 17:11> Date of Encounter: 08/03/17 - Assessment and plan (1) Acute on chronic respiratory failure with hypoxemia Current Visit: Yes Status: Acute (2) Acute on chronic systolic (congestive) heart failure Current Visit: Yes Status: Acute (3) Coronary artery disease Current Visit: Yes Status: Chronic Qualifiers: Coronary Disease-Associated Artery/Lesion type: [place] artery [place] vs. transplanted heart: [place] heart Associated angina: without angina Qualified Code(s): I25.10 - Atherosclerotic heart disease of [place] coronary artery without angina pectoris (4) Type 2 diabetes mellitus Current Visit: Yes Status: Chronic Qualifiers: Diabetes mellitus complication status: with hyperglycemia Diabetes mellitus terminal gauger supervisor insulin use: with terminal gauger supervisor use Qualified Code(s): E11.65 - Type 2 diabetes mellitus with hyperglycemia; Z79.4 - senior living (current) use of insulin (5) Interstitial lung disease Current Visit: No Status: Chronic - Constitutional Vitals: Temp Pulse Resp BP Pulse Ox 98.2 F 101 16 87/58 98 08/03/17 15:52 08/03/17 15:52 08/03/17 16:04 08/03/17 15:52 08/03/17 16:04 Internal Medicine: Result - Labs CBC & Chem 7: 08/03/17 06:32 08/03/17 06:32 Labs: Short CBC 08/03/17 Range/Units 06:32 WBC 17.8 H (4.3-11.1) K/mcL Hgb 8.5 L (12.9-16.9) g/dL Hct 30.4 L (37.5-50.1) % Plt Count 124 L (140-400) K/mcL Neutrophils # 14.9 H (1.6-8.9) K/mcL BMP 08/03/17 06:32 Sodium 141 Potassium 3.3 L Chloride 92 L Carbon Dioxide 43 H* BUN 23 Creatinine 0.81 Glucose 162 H Calcium 9.2 - ABG Interpretation ABG results: ABG ABG pH 7.45 pH Units (7.32-7.45) 08/01/17 05:05 ABG pCO2 62 mmHg (35-45) H 08/01/17 05:05 ABG pO2 80 mmHg (85-104) L 08/01/17 05:05 ABG O2 Saturation 96 % (95-98) 08/01/17 05:05 - Attending Attestation I examined this patient and my medical decision-making was reviewed with the Resident Physician on 08/03/17. I agree with the documented findings, disposition and treatment plan as described except to the extent set forth below. Mr Ruiz is currently admitted for hypoxia and exacerbation CHF. He remains moderate to high risk due to potential for worsening cardiac and respiratory status. Mr Ruiz is beginning to feel better. No CP. Less edema. No fevers or chills. No GI issues. Up in chair. Appetite OK. Exam Alert. Comfortable Heart irreg Lungs with scattered lower rales Abd soft Edema improving slowly Bicarb elevated I/P 1. Hypoxia 2. CHF 3. Contraction alkalosis/low BP - diuretic decreased and small amt fluid given. Further diagnoses and plan as above.
[2017-08-03] MEDS ORDERED: Furosemide 40 MG/4 ML VIAL IVP SCH ×2 (09:00)
[2017-08-03] MEDS ORDERED: Levofloxacin 750 MG/150 ML 750 MG/150 ML BAG IVPB SCH (09:00)
[2017-08-03] MEDS: Aspirin 81 MG TAB.CHEW PO SCH (10:05)
[2017-08-03] MEDS: Gabapentin 300 MG CAPSULE PO SCH ×3 (10:05→21:51)
[2017-08-03] MEDS: Indomethacin 25 MG CAPSULE PO PRN ×2 (10:14→16:30)
[2017-08-03] MEDS: Budesonide/Formoterol 160/4.5 MDI IH SCH ×2 (10:23→23:40)
[2017-08-03] MEDS: Insulin LISPRO 300 UNITS/3 ML VIAL SQ SCH ×4 (10:24→21:52)
[2017-08-03] MEDS ORDERED: 0.9 % Sodium Chloride 250 ML IVC ONE (15:52)
[2017-08-03] MEDS: *HR* Enoxaparin 40 MG/0.4 ML SYRINGE SQ SCH (16:31)
[2017-08-03] MEDS: Insulin DETEMIR 100 UNIT/ML X5UNITS SQ SCH (21:51)
[2017-08-04] MEDS: *HR* HYDROcodone/Acet 7.5/325 mg TABLET PO PRN ×3 (00:01→17:16)
[2017-08-04 04:02] LABS: Basophils % 0.1 %; Immature Granulocytes % 0.5 % (0-4); Mean Platelet Volume 10.9 fL (9.4-12.4)
[2017-08-04 04:04] LABS: Eosinophils # 0.1 K/mcL (0.0-0.6); Eosinophils % 0.7 %; Hematocrit 30.8 % (37.5-50.1); Hemoglobin 8.4 g/dL (12.9-16.9); Lymphocytes # 1.3 K/mcL (0.6-4.6); Lymphocytes % 8.3 %; Mean Corpuscular HGB Conc 27.3 g/dL (31.6-35.5); Mean Corpuscular Volume 80.8 fL (83.0-100.0); Monocytes # 1.3 K/mcL (0.0-1.3); Monocytes % 8.3 %; Neutrophils # 12.9 K/mcL (1.6-8.9); Platelet Count 119 K/mcL (140-400); Red Blood Count 3.81 M/mcL (4.19-5.50); Red Cell Distribution Width 24.4 % (11.5-14.5); Segmented Neutrophils % 82.1 %
[2017-08-04 04:11] LABS: BUN/Creatinine Ratio 23 (6-26); Blood Urea Nitrogen 32 mg/dL (8-26); Calcium 9.4 mg/dL (8.6-10.8); Carbon Dioxide 39 mEq/L (19-29); Chloride 92 mEq/L (98-109); Glucose 185 mg/dL (70-99); Osmolality,Calculated 302 (280-300); Potassium 3.7 mEq/L (3.5-4.5); Sodium 140 mEq/L (136-145); eGFR For African Americans > 60 (> 60); eGFR For Non-African Americans 51 (> 60)
[2017-08-04] MEDS: Ipratropium/Albuterol Neb 3 ML IH SCH ×4 (04:11→22:36)
[2017-08-04 04:51] LABS: Platelet Estimate Slight Decrease (Normal)
[2017-08-04 04:52] LABS: Anisocytosis 2+ (Not Present); Hypochromasia Present (Not Present); Polychromasia 1+ (Not Present)
[2017-08-04] MEDS: *HR* Enoxaparin 40 MG/0.4 ML SYRINGE SQ SCH (06:12)
[2017-08-04] MEDS: Indomethacin 25 MG CAPSULE PO SCH ×3 (08:09→17:10)
[2017-08-04] MEDS: Gabapentin 300 MG CAPSULE PO SCH ×3 (08:09→21:11)
[2017-08-04] MEDS: levoFLOXacin 750 MG TABLET PO SCH (08:10)
[2017-08-04] MEDS: Aspirin 81 MG TAB.CHEW PO SCH (08:10)
[2017-08-04] MEDS: Insulin LISPRO 300 UNITS/3 ML VIAL SQ SCH ×4 (08:14→21:13)
[2017-08-04] MEDS: Budesonide/Formoterol 160/4.5 MDI IH SCH ×2 (10:05→22:35)
[2017-08-04] MEDS ORDERED: 0.9 % Sodium Chloride 500 ML IVC ONE (12:19)
[2017-08-04] MEDS ORDERED: FLUARIX QUAD 2017-18 36MOS UP/PF 0.5 ML SYRINGE IM ONE (14:28)
--- NOTE | 2017-08-04 15:50 | Internal Med Progress Note ---
<Dionte Jimenez - Last Filed: 08/04/17 15:47> Date of Encounter: 08/04/17 Time of Encounter: 15:47 - Assessment and plan (1) Acute on chronic respiratory failure with hypoxemia Current Visit: Yes Status: Acute Assessment and plan: Secondary to CHF exacerbation, pneumonia. We held diuresis due to development of hypotenstion. Patient still has 2+ :E edema. During initial encounter patient denies any hx of cirrhosis but reviewing CT abdomen/pelvis 12/2016, there is evidence of asiites and cirrhosis. WIll order liver ultrasound. cefepime d/c and patient started on levaquin. (2) Acute on chronic systolic (congestive) heart failure Current Visit: Yes Status: Acute Assessment and plan: Previous echo shows EF of 40% with abnormal septal motion, dilated right ventricle, moderate pulmonary hypertension.\ hold diuresis due to hypotension -1000cc output yesterday. Patient educated on low salt, fluid restricted diet. (3) Pneumonia Current Visit: Yes Status: Suspected Qualifiers: Pneumonia type: due to unspecified organism Laterality: right Lung location: lower lobe of lung Qualified Code(s): J18.1 - Lobar pneumonia, unspecified organism (4) Coronary artery disease Current Visit: Yes Status: Chronic Assessment and plan: Received stents in Dec 2016. Continue Plavix and statin and aspirin. Qualifiers: Coronary Disease-Associated Artery/Lesion type: [place] artery [place] vs. transplanted heart: holy cross heart Associated angina: without angina Qualified Code(s): I25.10 - Atherosclerotic heart disease of [place] coronary artery without angina pectoris (5) Diabetes mellitus type 2 in nonobese Current Visit: Yes Status: Chronic Assessment and plan: Controlled. Continue diabetic diet. Continue SS insulin. (6) Elevated troponin Current Visit: Yes Status: Acute Assessment and plan: Adynamic. Likely secondary to demand ischemia. (7) Leukocytosis Current Visit: Yes Status: Chronic Assessment and plan: acute on chronic; follows with Hematology; Negative for hepatitis Peripheral blood smear negative BCR/ABL negative Follow up outpatient with oncology Qualifiers: Leukocytosis type: unspecified Qualified Code(s): D72.829 - Elevated white blood cell count, unspecified (8) Atrial flutter Current Visit: Yes Status: Acute Assessment and plan: After left heart catheterization in December patient had episode of a flutter Patient was initially started on xarelto this was discontinued due to nosebleeds. Currently regular rate and rhythm Qualifiers: Atrial flutter type: unspecified Qualified Code(s): I48.92 - Unspecified atrial flutter - Subjective Interval history: This morning patient was hypotensive with BP 80/70s. He denies chest pain, dizziness, blurry vision. - Constitutional Vitals: Temp Pulse Resp BP Pulse Ox 98.2 F 82 18 89/62 91 08/04/17 07:00 08/04/17 07:00 08/04/17 15:26 08/04/17 07:00 08/04/17 15:26 General appearance: Present: A&O X 3 (facial puffiness noted), answers questions appropriately - Respiratory Respiratory exam: Present: rales (Bibasilar), wheezes - Cardiovascular Additional comments: Sinus tachycardia - GI/Abdominal GI/Abdominal exam: Present: normal bowel sounds, soft, no peritoneal signs. Absent: distended, tenderness - Extremities Exam Extremities exam: Present: pedal edema (2+), warm, radial pulses palpable and symmetrical. Absent: calf tenderness, cyanotic Internal Medicine: Result - Labs CBC & Chem 7: 08/04/17 03:37 08/04/17 03:37 Labs: Short CBC 08/04/17 Range/Units 03:37 WBC 15.7 H (4.3-11.1) K/mcL Hgb 8.4 L (12.9-16.9) g/dL Hct 30.8 L (37.5-50.1) % Plt Count 119 L (140-400) K/mcL Neutrophils # 12.9 H (1.6-8.9) K/mcL BMP 08/04/17 03:37 Sodium 140 Potassium 3.7 Chloride 92 L Carbon Dioxide 39 H BUN 32 H Creatinine 1.42 H D Glucose 185 H Calcium 9.4 - ABG Interpretation ABG results: ABG ABG pH 7.45 pH Units (7.32-7.45) 08/01/17 05:05 ABG pCO2 62 mmHg (35-45) H 08/01/17 05:05 ABG pO2 80 mmHg (85-104) L 08/01/17 05:05 ABG O2 Saturation 96 % (95-98) 08/01/17 05:05 Consult Discharge Plan - Plan Instructions: Heart Failure (DC), Atrial Flutter (DC), Atrial Fibrillation (DC) , Acute Respiratory Distress Syndrome (DC), Acute Kidney Injury (DC), Acute Kidney Injury (GEN), Diabetes Mellitus Type 2 in Adults (DC), Chronic Obstructive Pulmonary Disease (DC), Anemia (GEN), Pneumonia (DC), Cigarette Smoking and Your Health, 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 (3) Acute on chronic respiratory failure with hypoxemia Current Visit: Yes Status: Acute (4) Acute on chronic systolic (congestive) heart failure Current Visit: Yes Status: Acute (5) Coronary artery disease Current Visit: Yes Status: Chronic Qualifiers: Coronary Disease-Associated Artery/Lesion type: [place] artery [place] vs. transplanted heart: [place] cross heart Associated angina: without angina Qualified Code(s): I25.10 - Atherosclerotic heart disease of [place] coronary artery without angina pectoris (6) Type 2 diabetes mellitus Current Visit: Yes Status: Chronic Qualifiers: Diabetes mellitus complication status: with hyperglycemia Diabetes mellitus snf insulin use: with terminal supervisor use Qualified Code(s): E11.65 - Type 2 diabetes mellitus with hyperglycemia; Z79.4 - [facility] (current) use of insulin (7) Interstitial lung disease Current Visit: No Status: Chronic - Constitutional Vitals: Temp Pulse Resp BP Pulse Ox 98.2 F 98 19 99/67 95 08/04/17 07:00 08/04/17 16:00 08/04/17 16:00 08/04/17 16:00 08/04/17 16:00 Internal Medicine: Result - Labs CBC & Chem 7: 08/04/17 03:37 08/04/17 03:37 Labs: Short CBC 08/04/17 Range/Units 03:37 WBC 15.7 H (4.3-11.1) K/mcL Hgb 8.4 L (12.9-16.9) g/dL Hct 30.8 L (37.5-50.1) % Plt Count 119 L (140-400) K/mcL Neutrophils # 12.9 H (1.6-8.9) K/mcL BMP 08/04/17 03:37 Sodium 140 Potassium 3.7 Chloride 92 L Carbon Dioxide 39 H BUN 32 H Creatinine 1.42 H D Glucose 185 H Calcium 9.4 - ABG Interpretation ABG results: ABG ABG pH 7.45 pH Units (7.32-7.45) 08/01/17 05:05 ABG pCO2 62 mmHg (35-45) H 08/01/17 05:05 ABG pO2 80 mmHg (85-104) L 08/01/17 05:05 ABG O2 Saturation 96 % (95-98) 08/01/17 05:05 - Attending Attestation I examined this patient and my medical decision-making was reviewed with the Resident Physician on 08/04/17. I agree with the documented findings, disposition and treatment plan as described except to the extent set forth below. Mr Ruiz is currently admitted for acute exac CHF. He remains moderate to high risk due to potential for worsening respiratory and cardiac status. Mr. Ruiz has had a low BP today. His creatinine has increased. He is feeling fairly well. No CP. Less SOB. No fever or chills Exam SBP less than 90 Heart distant and slightly tachy Lungs with scattered rales Abd soft Less edema I/P 1. Hypotension - due to volume loss 2. ASIM due to diuresis Further diagnoses and plan as above.
[2017-08-04] MEDS: Insulin DETEMIR 100 UNIT/ML X5UNITS SQ SCH (21:12)
[2017-08-05 03:40] LABS: Monocytes % 8.5 %
[2017-08-05 03:42] LABS: Basophils % 0.1 %; Eosinophils # 0.1 K/mcL (0.0-0.6); Eosinophils % 0.8 %; Hematocrit 30.3 % (37.5-50.1); Hemoglobin 8.2 g/dL (12.9-16.9); Immature Granulocytes % 0.6 % (0-4); Lymphocytes # 1.3 K/mcL (0.6-4.6); Lymphocytes % 7.3 %; Mean Corpuscular HGB Conc 27.1 g/dL (31.6-35.5); Mean Corpuscular Volume 81.5 fL (83.0-100.0); Mean Platelet Volume 10.5 fL (9.4-12.4); Monocytes # 1.5 K/mcL (0.0-1.3); Neutrophils # 14.2 K/mcL (1.6-8.9); Platelet Count 120 K/mcL (140-400); Red Blood Count 3.72 M/mcL (4.19-5.50); Red Cell Distribution Width 24.3 % (11.5-14.5); Segmented Neutrophils % 82.7 %
[2017-08-05 03:44] LABS: Albumin 2.6 g/dL (3.5-5.0); Albumin/Globulin Ratio 0.7 (1.1-2.2); Bilirubin,Total 0.8 mg/dL (0.2-1.2); Calcium 9.8 mg/dL (8.6-10.8); Globulin 3.7 g/dL (2.4-3.5); Potassium 4.3 mEq/L (3.5-4.5); Total Protein 6.3 g/dL (6.0-8.3)
[2017-08-05] MEDS: Ipratropium/Albuterol Neb 3 ML IH SCH ×4 (03:50→22:24)
[2017-08-05 04:09] LABS: Anisocytosis 2+ (Not Present); Hypochromasia Present (Not Present); Microcytosis Present (Not Present); Platelet Estimate Slight Decrease (Normal)
[2017-08-05] MEDS: *HR* Enoxaparin 40 MG/0.4 ML SYRINGE SQ SCH (06:00)
[2017-08-05] MEDS: levoFLOXacin 750 MG TABLET PO SCH (10:01)
[2017-08-05] MEDS: Gabapentin 300 MG CAPSULE PO SCH ×3 (10:01→21:04)
[2017-08-05] MEDS: Aspirin 81 MG TAB.CHEW PO SCH (10:01)
[2017-08-05] MEDS: Insulin LISPRO 300 UNITS/3 ML VIAL SQ SCH ×4 (10:03→23:02)
[2017-08-05] MEDS: Indomethacin 25 MG CAPSULE PO SCH (10:34)
[2017-08-05] MEDS: Budesonide/Formoterol 160/4.5 MDI IH SCH ×2 (11:01→22:24)
[2017-08-05 12:58] LABS: Hepatitis A Antibody IgM Nonreactive (Nonreactive); Hepatitis B Core IgM Nonreactive (Nonreactive); Hepatitis B Surface Antigen Nonreactive (Nonreactive)
[2017-08-05 13:55] LABS: Hepatitis C Virus Antibody Nonreactive (Nonreactive)
--- NOTE | 2017-08-05 14:33 | Nephrology Consult Note ---
Date of Encounter: 08/05/17 Time of Encounter: 14:33 Assessment and Plan (1) Acute kidney injury Current Visit: No Status: Acute 57-year-old male admitted for CHF exacerbation and acute on chronic respiratory failure. Baseline creatinine 1.0 and GFR greater than 60. Patient was undergoing diuresis in the setting of volume overload and developed acute kidney injury. IV diuresis was discontinued 2 days ago and the patient was provided normal saline IV without response. Acute kidney injury continued to worsen with a current creatinine of 2.10 and GFR of 32, BUN elevated from 27- 46. -Supporting history: Patient has a known history of systolic heart failure with ejection fraction of 40% currently undergoing treatment for CHF exacerbation, known type II diabetic with most recent hemoglobin A1c of 7.7 with current glucose levels around 200. Her new diagnosis of liver cirrhosis with a liver ultrasound cirrhotic morphology of the liver with trace perihepatic ascites. - Primary team started albumin 25 g every 8 hours - - This may be secondary to worsening heart failure and excess diuretic use. Patient is receiving IV Lasix and developed worsening renal function in the setting of systolic heart failure which is likely diminished intervascular volume. Bicarbonate level increased demonstrating contraction alkalosis. Patient's last vancomycin trough was 22.7 on 08/02/2017, no vancomycin trough the last 3 days. - Hepatitis A, B, C all nonreactive. - Will obtain echocardiogram as the patient appears to be clinically in worsening heart failure. - Also consider possible Hepatorenal syndrome. Plan: - Continue albumin to increase vascular volume and increase renal perfusion. - Retroperitoneal ultrasound - Echocardiogram - Urine osmolality, urine creatinine, urine sodium, serum uric acid, BNP - Urinalysis - Vancomycin trough - Avoid nephrotoxic medication and renally dose antibiotics - Strict intake and output monitoring. (2) Type 2 diabetes mellitus Current Visit: Yes Status: Chronic Patient is a known type II diabetic, current glucoses have been around 200 with a A1c couple months ago at 7.7. Plan: - Management per primary team - Recommend tighter glucose control for renal benefit. Qualifiers: Diabetes mellitus complication status: with hyperglycemia Diabetes mellitus intermediate frame tender insulin use: with intermediate frame tender use Qualified Code(s): E11.65 - Type 2 diabetes mellitus with hyperglycemia; Z79.4 - nursing home (current) use of insulin History of Present Illness - Reason for Consult Consult date: 08/05/17 Requesting physician: Dionte Jimenez - Chief Complaint ASIM - History of Present Illness Mr. Ruiz 57 yo male with known systolic heart failure, coronary artery disease, DS in the LAD, newly found cirrhosis liver, atrial fibrillation, type 2 diabetes, COPD admitted with CHF exacerbation. During treatment for his CHF exacerbation he was receiving IV Lasix and developed acute on chronic kidney injury. Lasix was discontinued and the patient was provided IV fluids without improvement in his renal function. He was found to have liver cirrhosis and ascites which are new and is concerned this may be contributing to his renal demise. Patient states that he has no history of kidney injury, chronic kidney disease, has not seen a supervisor anodizing and unknown of any history of protein in his urine. He denies any history of NSAID, Tylenol or drug abuse. He does have a history of "social drinking" saying that he would have 3-4 drinks per night socially and it was not specific to alcohol or beer but does not currently drink and has been without a drink for over 2 years. He denies any history of withdrawals, difficulty stopping or creating alcohol. He denies any history of hepatitis or rheumatologic disorders. He says he has regular blood work done with his primary care provider and there has not been concern in the past. He feels that his diabetes is well controlled on his current glucose regimen. He denies any flank pain, bladder burning with urination, difficulty starting or stopping his stream or discoloration of urine. Past Med Surg Social Fam HX - Past Medical History Medical history: atrial fibrillation, CHF, COPD, coronary artery disease, diabetes, GERD, hyperlipidemia, hypertension, myocardial infarction Psychiatric history: anxiety - Past Surgical History Surgical History: angioplasty/stent, appendectomy - Social History Smoking Status: Former smoker (80 pack year history) Packs per day: 2 Smokeless Tobacco Status: No Alcohol use: none Drug use: none - Family History Sister Adopted: No Family Member Ethnicity: Non- Living Status: Still Living Hx Family Cardiac Disorders: No Hx Family Respiratory Disorders: No Hx Family Cancer: Yes Hx Family GI Disorders: No Hx Family Endocrine Disorder: No (Possiblke thyroid) Hx Family Neuromuscular Disorders: No Hx Family Neurologic Disorders: No Hx Family HEENT Disorders: No Hx Family Autoimmune Disorders: No Brother Living Status: Still Living Hx Family Cardiac Disorders: Yes Father Living Status: Cause of : Pancreatic cancer Hx Family Cancer: Yes Mother Living Status: Hx Family Cardiac Disorders: Yes Hx Family Endocrine Disorder: Yes (diabetes) Medications and Allergies Gabapentin [Neurontin] 600 mg PO TID 12/11/16 [History] Omeprazole [PriLOSEC] 20 mg PO DAILY 12/11/16 [History] HYDROcodone/Acet 7.5/325 mg [[place] 7.5-325 mg] 1 tab PO Q6H PRN 12/17/16 [ History] Atorvastatin [Lipitor] 20 mg PO HS #30 tablet 12/23/16 [Rx] Clopidogrel [Plavix] 75 mg PO DAILY #30 tablet 12/23/16 [Rx] Nitroglycerin 0.4 mg SL Q5MIN PRN #30 tab.subl 12/23/16 [Rx] Ipratropium/Albuterol Neb [Duoneb] 3 ml IH QIDR #100 inhsol 12/28/16 [Rx] Magnesium Oxide [Mag-Ox] 400 mg PO BID #60 tablet 03/22/17 [Rx] Cholecalciferol (Vitd3)/Vit K2 [D3 + K2 Dots 1,000 Units Tab] 2 each PO DAILY [History] Docusate [Colace] 100 mg PO DAILY 07/31/17 [History] Ferrous Sulfate [Iron] 325 mg PO BID 07/31/17 [History] Insulin ASPART [Novolog Flexpen] 0 unit SQ ACHS 07/31/17 [History] Polyethylene Glycol 3350 [MiraLAX] 17 gm PO DAILY 07/31/17 [History] Bumetanide [Bumex] 1 mg PO DAILY 08/01/17 [History] Gemfibrozil [Lopid] 600 mg PO BID 08/01/17 [History] Metformin HCl [Glucophage] 1,000 mg PO BID 08/01/17 [History] Potassium Chloride [Klor-Con 10] 10 meq PO DAILY 08/01/17 [History] Spironolactone [Aldactone] 25 mg PO DAILY 08/01/17 [History] 3 Allergy/AdvReac Type Severity Reaction Status Date / Time No Known Allergies Allergy Verified 08/01/17 09:44 Review of Systems Constitutional: weight gain, no excessive sweating, no weight loss Eyes: bilateral: blurred vision (patient denies), diplopia (patient denies) Nose, mouth and throat: no dizziness, no headache(s) Cardiovascular: dyspnea, dyspnea on exertion, edema, no chest pain, no palpitations Respiratory: cough, dyspnea, dyspnea on exertion Gastrointestinal: no abdominal pain, no change in bowel habits Genitourinary Male: scrotal swelling, no change in urinary stream, no difficulty urinating, no hematuria, no urinary frequency, no urinary urgency Musculoskeletal: no muscle weakness, no numbness Integumentary: no hirsutism, no striae Psychiatric: no depression, no difficulty concentrating Endocrine: as per HPI Hematologic/Lymphatic: no easy bruising, no lymphadenopathy Exam - Vital Signs Vital signs: Initial Vital Signs Temp Pulse Resp BP Pulse Ox 98.3 F 105 16 115/80 97 07/31/17 16:40 07/31/17 16:40 07/31/17 16:40 07/31/17 16:40 07/31/17 16:40 Vital Signs - Last 8 Hours Temp Pulse Resp BP Pulse Ox 08/05/17 07:00 98.1 F 93 15 86/66 94 Intake and Output 08/04/17 08/05/17 08/05/17 23:59 07:59 15:59 Output Total 275 / 275 Balance -275 / -275 Output: Urine 275 / 275 Other: # Voids 1 Weight 85.9 kg Blood Glucose* 223 230 375 Patient Weight 08/05/17 23:59 Weight 85.9 kg - General Appearance Exam: General: Patient alert, awake, oriented 3, interactive, in no acute distress HEENT: Normocephalic, atraumatic, pupils equal reactive to light, poor dentition , oral mucosa moist, uvula midline, neck supple trachea midline no palpable lymphadenopathy, no thyromegaly. Chest: Symmetric bilateral correlating with respiratory effort, effort nonlabored. Cardiac: Regular rate and rhythm, positive S1 and S2. no bruits appreciated bilateral carotids, Radial pulses 2+ bilateral, posterior tibial and dorsal pedal pulses 2+ bilateral. Respiratory: Clear to auscultation all lung g[place] Abdomen: Obese, nontender to palpation, positive bowel sounds, pitting edema up to mid chest, no erythema, ulcers or wounds. Extremities: Bilateral lower extremity 3+ pitting edema, no ulcers or wounds or lesions appreciated on examination Neurologic: No focal deficits appreciated on examination. Face symmetric, muscle strength symmetric bilateral upper and lower extremities. Results - Lab Results 08/05/17 03:10 08/05/17 03:10 Most recent lab results ABG pH 7.45 pH Units (7.32-7.45) 08/01/17 05:05 ABG pCO2 62 mmHg (35-45) H 08/01/17 05:05 ABG pO2 80 mmHg (85-104) L 08/01/17 05:05 ABG HCO3 43 mEq/L (21-27) H 08/01/17 05:05 ABG O2 Saturation 96 % (95-98) 08/01/17 05:05 Calcium 9.8 mg/dL (8.6-10.8) 08/05/17 03:10 Consult Discharge Plan - Plan Instructions: Heart Failure (DC), Atrial Flutter (DC), Atrial Fibrillation (DC) , Acute Respiratory Distress Syndrome (DC), Acute Kidney Injury (DC), Acute Kidney Injury (GEN), Diabetes Mellitus Type 2 in Adults (DC), Chronic Obstructive Pulmonary Disease (DC), Anemia (GEN), Pneumonia (DC), Cigarette 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
--- NOTE | 2017-08-05 14:41 | Internal Med Progress Note ---
<Dionte Jimenez - Last Filed: 08/05/17 15:41> Date of Encounter: 08/05/17 Time of Encounter: 14:39 - Assessment and plan (1) Acute on chronic systolic (congestive) heart failure Current Visit: Yes Status: Acute Assessment and plan: Previous echo shows EF of 40% with abnormal septal motion, dilated right ventricle, moderate pulmonary hypertension. holding diuresis due to hypotension, patient intravascularly dry but still has 2 + pitting edema diuresis is complicated by worsening kidney function and new finding of cirrhosis we will obtain new echo to evaluate for worsening systolic function (2) Acute kidney injury Current Visit: Yes Status: Acute Assessment and plan: 2nd to diuresis contraction alkalosis hold diuresis albumin being administered. (3) Cirrhosis Current Visit: Yes Status: Suspected Assessment and plan: currently etiology unclear Ct/Abdomen pelvis in 12/2016 showed evidence of asicties and cirrhosis Liver US confirmed finding patient has hx of alcohol use of 3-4 beers daily hepatitis panel negative antismooth muscle antibiody pending Qualifiers: Hepatic cirrhosis type: unspecified hepatic cirrhosis Ascites presence: with ascites Qualified Code(s): K74.60 - Unspecified cirrhosis of liver (4) Acute on chronic respiratory failure with hypoxemia Current Visit: Yes Status: Acute Assessment and plan: Secondary to CHF exacerbation, pneumonia. We held diuresis due to development of hypotenstion. on home 3L O2 oxygenating >90% continue to monitor (5) Pneumonia Current Visit: Yes Status: Suspected Assessment and plan: Patient does not report symptoms of coughing, and is using home oxygen at 3 L. pneumonia suspected but less likely. d/c levaquin patient has had 5 days of antibiotics. Qualifiers: Pneumonia type: due to unspecified organism Laterality: right Lung location: lower lobe of lung Qualified Code(s): J18.1 - Lobar pneumonia, unspecified organism (6) Coronary artery disease Current Visit: Yes Status: Chronic Assessment and plan: Received stents in Dec 2016. Continue Plavix and statin and aspirin. Qualifiers: Coronary Disease-Associated Artery/Lesion type: [place] artery [place] vs. transplanted heart: [place] heart Associated angina: without angina Qualified Code(s): I25.10 - Atherosclerotic heart disease of [place] coronary artery without angina pectoris (7) Diabetes mellitus type 2 in nonobese Current Visit: Yes Status: Chronic Assessment and plan: Controlled. Continue diabetic diet. Continue SS insulin. (8) Elevated troponin Current Visit: Yes Status: Acute Assessment and plan: Adynamic. Likely secondary to demand ischemia. denies chest pain (9) Leukocytosis Current Visit: Yes Status: Chronic Assessment and plan: acute on chronic; follows with Hematology; Negative for hepatitis Peripheral blood smear negative BCR/ABL negative Follow up outpatient with oncology Qualifiers: Leukocytosis type: unspecified Qualified Code(s): D72.829 - Elevated white blood cell count, unspecified (10) Atrial flutter Current Visit: Yes Status: Acute Assessment and plan: After left heart catheterization in December patient had episode of a flutter Patient was initially started on xarelto this was discontinued due to nosebleeds. Currently regular rate and rhythm Qualifiers: Atrial flutter type: unspecified Qualified Code(s): I48.92 - Unspecified atrial flutter - Subjective Interval history: Patient's sob is resolved. He continues to have lower extremity edema. He denies CP, palpitations, abdominal pain, N/V, LE pain. - Constitutional Vitals: Temp Pulse Resp BP Pulse Ox 98.1 F 93 15 86/66 94 08/05/17 07:00 08/05/17 07:00 08/05/17 07:00 08/05/17 07:00 08/05/17 07:00 General appearance: Present: A&O X 3 (facial puffiness noted), answers questions appropriately - Respiratory Respiratory exam: Present: rales (mild basilar ). Absent: wheezes, tachypnea - Cardiovascular Cardiovascular exam: Present: RRR, +S1, +S2. Absent: diastolic murmur, gallop, rubs, systolic murmur - GI/Abdominal GI/Abdominal exam: Present: normal bowel sounds, soft, no peritoneal signs. Absent: distended, tenderness - Extremities Exam Extremities exam: Present: pedal edema (2+ up to abdomen). Absent: tenderness Internal Medicine: Result - Labs CBC & Chem 7: 08/05/17 03:10 08/05/17 03:10 Labs: Short CBC 08/05/17 Range/Units 03:10 WBC 17.2 H (4.3-11.1) K/mcL Hgb 8.2 L (12.9-16.9) g/dL Hct 30.3 L (37.5-50.1) % Plt Count 120 L (140-400) K/mcL Neutrophils # 14.2 H (1.6-8.9) K/mcL BMP 08/05/17 03:10 Sodium 139 Potassium 4.3 Chloride 91 L Carbon Dioxide 39 H BUN 46 H D Creatinine 2.10 H Glucose 229 H Calcium 9.8 Liver Function 08/05/17 Range/Units 03:10 Total Bilirubin 0.8 (0.2-1.2) mg/dL AST 22 (5-34) Units/L ALT 21 (0-55) Units/L Alkaline Phosphatase 85 (38-126) Units/L Albumin 2.6 L (3.5-5.0) g/dL - ABG Interpretation ABG results: ABG ABG pH 7.45 pH Units (7.32-7.45) 08/01/17 05:05 ABG pCO2 62 mmHg (35-45) H 08/01/17 05:05 ABG pO2 80 mmHg (85-104) L 08/01/17 05:05 ABG O2 Saturation 96 % (95-98) 08/01/17 05:05 - Impressions Impressions Liver Ultrasound 08/05/17 09:00 IMPRESSION: Cirrhotic morphology liver were trace perihepatic ascites. D/ / Edna Vu MD / Edna Vu MD Interpreting Provider: Edna Vu MD Consult Discharge Plan - Plan Instructions: Heart Failure (DC), Atrial Flutter (DC), Atrial Fibrillation (DC) , Acute Respiratory Distress Syndrome (DC), Acute Kidney Injury (DC), Acute Kidney Injury (GEN), Diabetes Mellitus Type 2 in Adults (DC), Chronic Obstructive Pulmonary Disease (DC), Anemia (GEN), Pneumonia (DC), Cigarette Smoking and Your Health, Lard Maker (GEN) Additional Instructions: pcp requested Referrals: Tawanda Chi MD [Primary Care Provider] - 08/08/17 10:30 am <Janusz Ponce - Last Filed: 08/05/17 18:27> Date of Encounter: 08/05/17 - Assessment and plan (1) Hypotension Current Visit: No Status: Resolved Qualifiers: Hypotension type: other hypotension type Qualified Code(s): I95.89 - Other hypotension (2) Acute kidney injury Current Visit: Yes Status: Acute (3) Acute on chronic respiratory failure with hypoxemia Current Visit: Yes Status: Acute (4) Acute on chronic systolic (congestive) heart failure Current Visit: Yes Status: Acute (5) Coronary artery disease Current Visit: Yes Status: Chronic Qualifiers: Coronary Disease-Associated Artery/Lesion type: [place] artery [place] vs. transplanted heart: [place] heart Associated angina: without angina Qualified Code(s): I25.10 - Atherosclerotic heart disease of [place] coronary artery without angina pectoris (6) Type 2 diabetes mellitus Current Visit: Yes Status: Chronic Qualifiers: Diabetes mellitus complication status: with hyperglycemia Diabetes mellitus shelter insulin use: with shelter use Qualified Code(s): E11.65 - Type 2 diabetes mellitus with hyperglycemia; Z79.4 - [facility] (current) use of insulin (7) Interstitial lung disease Current Visit: No Status: Chronic (8) Cirrhosis Current Visit: Yes Status: Suspected Qualifiers: Hepatic cirrhosis type: other cirrhosis Qualified Code(s): K74.69 - Other cirrhosis of liver - Constitutional Vitals: Temp Pulse Resp BP Pulse Ox 98.1 F 103 18 90/54 94 08/05/17 07:00 08/05/17 16:00 08/05/17 16:00 08/05/17 16:00 08/05/17 07:00 Internal Medicine: Result - Labs CBC & Chem 7: 08/05/17 03:10 08/05/17 03:10 Labs: Short CBC 08/05/17 Range/Units 03:10 WBC 17.2 H (4.3-11.1) K/mcL Hgb 8.2 L (12.9-16.9) g/dL Hct 30.3 L (37.5-50.1) % Plt Count 120 L (140-400) K/mcL Neutrophils # 14.2 H (1.6-8.9) K/mcL BMP 08/05/17 03:10 Sodium 139 Potassium 4.3 Chloride 91 L Carbon Dioxide 39 H BUN 46 H D Creatinine 2.10 H Glucose 229 H Calcium 9.8 Liver Function 08/05/17 Range/Units 03:10 Total Bilirubin 0.8 (0.2-1.2) mg/dL AST 22 (5-34) Units/L ALT 21 (0-55) Units/L Alkaline Phosphatase 85 (38-126) Units/L Albumin 2.6 L (3.5-5.0) g/dL - ABG Interpretation ABG results: ABG ABG pH 7.45 pH Units (7.32-7.45) 08/01/17 05:05 ABG pCO2 62 mmHg (35-45) H 08/01/17 05:05 ABG pO2 80 mmHg (85-104) L 08/01/17 05:05 ABG O2 Saturation 96 % (95-98) 08/01/17 05:05 - Impressions Impressions Liver Ultrasound 08/05/17 09:00 IMPRESSION: Cirrhotic morphology liver were trace perihepatic ascites. D/ / Edna Vu MD / Edna Vu MD Interpreting Provider: Edna Vu MD - Attending Attestation I examined this patient and my medical decision-making was reviewed with the Resident Physician on 08/05/17. I agree with the documented findings, disposition and treatment plan as described except to the extent set forth below. Mr. Ruiz is currently admitted for acute exac CHF. He has developed ASIM. He has new diagnosis of cirrhosis. He remains moderate to high risk due to potential for worsening cardiac and renal issues. Mr Ruiz is very frustrated. He wants to go home. His renal function is worse today. His BP has been low. Ultrasound is consistent with cirrhosis. Exam Alert. Tearful Heart distant Lungs with some rales Abd soft Edema present I/P 1. ASIM 2. CHF 3. Probable cirrhosis Further diagnoses and plan as above.
[2017-08-05] MEDS: GuaiFENesin Liq 200 MG/10 ML UDC PO SCH ×3 (15:03→23:57)
[2017-08-05] MEDS: Albumin 25% 25gram/100mL 25 GM/100 ML IV.SOLN IVPB SCH ×2 (15:42→23:58)
[2017-08-05 16:12] LABS: Uric Acid 7.5 mg/dL (3.5-7.2)
[2017-08-05 16:33] LABS: Thyroid Stimulating Hormone 2.243 mcIU/mL (0.350-4.840)
[2017-08-05] MEDS: Insulin DETEMIR 100 UNIT/ML X5UNITS SQ SCH (21:04)
[2017-08-05 22:36] LABS: Bilirubin,Urine Small (Negative); Blood,Urine Negative (Negative); Clarity,Urine Clear (Clear); Color,Urine Dark Yellow (Yellow); Glucose,Urine (UA) Normal (Normal); Ketones,Urine Trace mg/dL (Negative); Leukocyte Esterase,Urine Small (Negative); Nitrite,Urine Negative (Negative); PH,Urine 5.5 pH Units (5.0-8.0); Protein,Urine 30 mg/dL (Neg-Trace); Specific Gravity,Urine 1.019 (1.010-1.025); Urobilinogen,Urine Normal (Normal)
[2017-08-05 22:38] LABS: Bacteria,Urine None Seen per hpf (None-Few); Squamous Epithelial Cell,Urine Many per lpf (None-Few); WBC,Urine 0-3 per hpf (0-3)
[2017-08-05 22:45] LABS: Creatinine,Urine 177 mg/dL
[2017-08-05 22:46] LABS: Sodium, Urine < 20.0 mEq/L
[2017-08-05 23:01] LABS: Hyaline Casts,Urine Moderate per lpf (None-Few)
[2017-08-06] MEDS ORDERED: Mag Hydrox/Al Hydrox/Simeth 30 ML UDC PO PRN (02:17)
[2017-08-06] MEDS: Ipratropium/Albuterol Neb 3 ML IH SCH ×4 (04:07→23:38)
[2017-08-06 05:15] LABS: Basophils % 0.1 %; Eosinophils # 0.2 K/mcL (0.0-0.6); Eosinophils % 0.8 %; Hematocrit 25.8 % (37.5-50.1); Hemoglobin 7.1 g/dL (12.9-16.9); Immature Granulocytes % 0.8 % (0-4); Lymphocytes # 1.4 K/mcL (0.6-4.6); Lymphocytes % 7.2 %; Mean Corpuscular HGB Conc 27.5 g/dL (31.6-35.5); Mean Corpuscular Hemoglobin 22.1 pg (28.0-33.3); Mean Corpuscular Volume 80.4 fL (83.0-100.0); Mean Platelet Volume 11.1 fL (9.4-12.4); Monocytes # 1.6 K/mcL (0.0-1.3); Monocytes % 8.4 %; Platelet Count 111 K/mcL (140-400); Red Blood Count 3.21 M/mcL (4.19-5.50); Red Cell Distribution Width 24.3 % (11.5-14.5); Segmented Neutrophils % 82.7 %
[2017-08-06 05:29] LABS: Calcium 9.7 mg/dL (8.6-10.8); Potassium 4.4 mEq/L (3.5-4.5)
[2017-08-06 05:35] LABS: Hypochromasia Present (Not Present)
[2017-08-06] MEDS: *HR* Enoxaparin 40 MG/0.4 ML SYRINGE SQ SCH (05:35)
[2017-08-06] MEDS: GuaiFENesin Liq 200 MG/10 ML UDC PO SCH ×3 (05:35→16:19)
[2017-08-06 05:36] LABS: Large Platelets Present (Not Present); Microcytosis Present (Not Present); Platelet Estimate Decreased (Normal)
[2017-08-06 05:37] LABS: Anisocytosis 2+ (Not Present); Schistocytes 1+ (Not Present)
[2017-08-06 05:38] LABS: Poikilocytosis 1+ (Not Present)
[2017-08-06] MEDS: Gabapentin 300 MG CAPSULE PO SCH ×2 (07:56→20:59)
[2017-08-06] MEDS: Aspirin 81 MG TAB.CHEW PO SCH (07:56)
[2017-08-06] MEDS: Insulin LISPRO 300 UNITS/3 ML VIAL SQ SCH ×4 (08:00→20:59)
[2017-08-06 08:22] LABS: Basophils % 0.2 %; Eosinophils # 0.2 K/mcL (0.0-0.6); Eosinophils % 0.8 %; Hemoglobin 7.2 g/dL (12.9-16.9); Immature Granulocytes % 0.5 % (0-4); Immature Platelets 10.4 % (1.1-6.1); Lymphocytes # 1.5 K/mcL (0.6-4.6); Lymphocytes % 7.6 %; Mean Corpuscular HGB Conc 27.7 g/dL (31.6-35.5); Mean Corpuscular Hemoglobin 22.2 pg (28.0-33.3); Mean Platelet Volume 10.6 fL (9.4-12.4); Monocytes # 1.8 K/mcL (0.0-1.3); Neutrophils # 16.1 K/mcL (1.6-8.9); Platelet Count 116 K/mcL (140-400); Red Blood Count 3.25 M/mcL (4.19-5.50); Red Cell Distribution Width 24.3 % (11.5-14.5); Segmented Neutrophils % 81.9 %
[2017-08-06 08:45] LABS: Anisocytosis 2+ (Not Present)
[2017-08-06 08:46] LABS: Hypochromasia Present (Not Present); Platelet Estimate Normal (Normal); Polychromasia 1+ (Not Present)
[2017-08-06] MEDS: Albumin 25% 25gram/100mL 25 GM/100 ML IV.SOLN IVPB SCH ×2 (09:00→16:05)
--- NOTE | 2017-08-06 09:38 | Internal Med Progress Note ---
<Dionte Jimenez - Last Filed: 08/06/17 09:53> Date of Encounter: 08/06/17 Time of Encounter: 09:38 - Assessment and plan (1) Cirrhosis Current Visit: Yes Status: Suspected Assessment and plan: currently etiology but alcohol may have played a rale as patient admits to drinking 3-4 beers in the past (has not had drink in [address]/Abdomen pelvis in 12/2016 showed evidence of asicties and cirrhosis Liver US confirmed finding hepatitis panel negative antismooth muscle antibiody pending Will get GI oupatient follow up. Qualifiers: Hepatic cirrhosis type: unspecified hepatic cirrhosis Ascites presence: with ascites Qualified Code(s): K74.60 - Unspecified cirrhosis of liver (2) Acute kidney injury Current Visit: Yes Status: Acute Assessment and plan: 2nd to diuresis contraction alkalosis hold diuresis albumin being administered. ASIM improved Nephro consulted and recommended midodrine and RBC transfusion retroperitoneal US WNL BMP in am appreciate nephrology recommendations (3) Anemia Current Visit: Yes Status: Chronic Assessment and plan: Microcytic anemia 2nd to anemia of chronic disease as well as iron def anemia hgb 7.2. hx of CAD in setting of hypotension and ASIM will replace with 1 [facility] colonoscopy in 2016 negative for polyps/cancer, showed internal hemmroids egd negative as well in february for any stigmata of bleeding cbc in AM. Qualifiers: Anemia type: iron deficiency Iron deficiency anemia type: unspecified iron deficiency Qualified Code(s): D50.9 - Iron deficiency anemia, unspecified (4) Acute on chronic systolic (congestive) heart failure Current Visit: Yes Status: Acute Assessment and plan: Previous echo shows EF of 40% with abnormal septal motion, dilated right ventricle, moderate pulmonary hypertension. New echo pending holding diuresis due to hypotension, asim patient intravascularly dry but still has 2+ pitting edema diuresis is complicated by worsening kidney function and new finding of cirrhosis currently no rales on exam: patients acute chf resolved. (5) Acute on chronic respiratory failure with hypoxemia Current Visit: Yes Status: Resolved Assessment and plan: Secondary to CHF exacerbation, pneumonia. We held diuresis due to development of hypotenstion. on home 3L O2 oxygenating >90% continue to monitor (6) Pneumonia Current Visit: Yes Status: Suspected Assessment and plan: Patient does not report symptoms of coughing, and is using home oxygen at 3 L. pneumonia suspected but less likely. had five days levaquin. resolved. Qualifiers: Pneumonia type: due to unspecified organism Laterality: right Lung location: lower lobe of lung Qualified Code(s): J18.1 - Lobar pneumonia, unspecified organism (7) Coronary artery disease Current Visit: Yes Status: Chronic Assessment and plan: Received stents in Dec 2016. Continue Plavix and statin and aspirin. Qualifiers: Coronary Disease-Associated Artery/Lesion type: [place] artery [place] vs. transplanted heart: [place] heart Associated angina: without angina Qualified Code(s): I25.10 - Atherosclerotic heart disease of [place] coronary artery without angina pectoris (8) Diabetes mellitus type 2 in nonobese Current Visit: Yes Status: Chronic Assessment and plan: Controlled. Continue diabetic diet. Continue SS insulin. (9) Leukocytosis Current Visit: Yes Status: Chronic Assessment and plan: acute on chronic; follows with Hematology; Negative for hepatitis Peripheral blood smear negative BCR/ABL negative Follow up outpatient with oncology Qualifiers: Leukocytosis type: unspecified Qualified Code(s): D72.829 - Elevated white blood cell count, unspecified (10) Atrial flutter Current Visit: Yes Status: Acute Assessment and plan: After left heart catheterization in December patient had episode of a flutter Patient was initially started on xarelto this was discontinued due to nosebleeds. Currently regular rate and rhythm Qualifiers: Atrial flutter type: unspecified Qualified Code(s): I48.92 - Unspecified atrial flutter - Subjective Interval history: Patient's sob is resolved. Denies cough, sob. Reorts increased urinary output. Denies chest pain, LE pain, abdominal pain. - Constitutional Vitals: Temp Pulse Resp BP Pulse Ox 97.6 F 80 12 93/70 93 08/06/17 07:36 08/06/17 07:36 08/06/17 07:36 08/06/17 07:36 08/06/17 07:36 General appearance: Present: A&O X 3 (facial puffiness noted), answers questions appropriately - Respiratory Respiratory exam: Present: CTAB. Absent: accessory muscle use, rales, rhonchi, wheezes - Cardiovascular Cardiovascular exam: Present: RRR, +S1, +S2. Absent: diastolic murmur, gallop, rubs, systolic murmur - GI/Abdominal GI/Abdominal exam: Present: normal bowel sounds, soft, no peritoneal signs. Absent: distended, tenderness - Extremities Exam Extremities exam: Present: pedal edema (2+ with edema up to abdomen ), warm, radial pulses palpable and symmetrical. Absent: calf tenderness, cyanotic Internal Medicine: Result - Labs CBC & Chem 7: 08/06/17 08:04 08/06/17 04:58 Labs: Short CBC 08/06/17 08/06/17 Range/Units 04:58 08:04 WBC 19.4 H 19.7 H (4.3-11.1) K/mcL Hgb 7.1 L 7.2 L (12.9-16.9) g/dL Hct 25.8 L 26.0 L (37.5-50.1) % Plt Count 111 L 116 L (140-400) K/mcL Neutrophils # 16.0 H 16.1 H (1.6-8.9) K/mcL BMP 08/06/17 04:58 Sodium 136 Potassium 4.4 Chloride 91 L Carbon Dioxide 37 H BUN 65 H D Creatinine 2.03 H Glucose 185 H Calcium 9.7 Urine 08/05/17 Range/Units 22:20 Urine Color Dark Yellow (Yellow) Urine Clarity Clear (Clear) Urine pH 5.5 (5.0-8.0) pH Units Ur Specific [place] 1.019 (1.010-1.025) Urine Protein 30 H (Neg-Trace) mg/dL Urine Glucose (UA) Normal (Normal) mg/dL - ABG Interpretation ABG results: ABG ABG pH 7.45 pH Units (7.32-7.45) 08/01/17 05:05 ABG pCO2 62 mmHg (35-45) H 08/01/17 05:05 ABG pO2 80 mmHg (85-104) L 08/01/17 05:05 ABG O2 Saturation 96 % (95-98) 08/01/17 05:05 - Impressions Impressions Liver Ultrasound 08/05/17 09:00 IMPRESSION: Cirrhotic morphology liver were trace perihepatic ascites. D/ / Edna Vu MD / Edna Vu MD Interpreting Provider: Edna Vu MD Retroperitoneum Ultrasound 08/05/17 17:00 IMPRESSION: Unremarkable ultrasound of the kidneys. Urinary bladder poorly evaluated due to underdistention. D/ / 08/05/2017 21:07:47 Adam Akers MD / moe Interpreting Provider: Adam Akers MD - VTE Documentation of Mechanical Device: Graduated compression elastic hosiery Consult Discharge Plan - Plan Instructions: Heart Failure (DC), Atrial Flutter (DC), Atrial Fibrillation (DC) , Acute Respiratory Distress Syndrome (DC), Acute Kidney Injury (DC), Acute Kidney Injury (GEN), Diabetes Mellitus Type 2 in Adults (DC), Chronic Obstructive Pulmonary Disease (DC), Anemia (GEN), Pneumonia (DC), Cigarette Smoking and Your Health, Duty Manager (GEN) Additional Instructions: pcp requested Referrals: Tawanda Chi MD [Primary Care Provider] - 08/08/17 10:30 am <Janusz Ponce - Last Filed: 08/06/17 12:12> Date of Encounter: 08/06/17 - Assessment and plan (1) Anemia Current Visit: Yes Status: Acute Qualifiers: Anemia type: iron deficiency Iron deficiency anemia type: other iron deficiency Qualified Code(s): D50.8 - Other iron deficiency anemias (2) Hypotension Current Visit: No Status: Resolved Qualifiers: Hypotension type: other hypotension type Qualified Code(s): I95.89 - Other hypotension (3) Acute kidney injury Current Visit: Yes Status: Acute (4) Acute on chronic respiratory failure with hypoxemia Current Visit: Yes Status: Resolved (5) Acute on chronic systolic (congestive) heart failure Current Visit: Yes Status: Acute (6) Cirrhosis Current Visit: Yes Status: Suspected Qualifiers: Hepatic cirrhosis type: alcoholic cirrhosis Ascites presence: with ascites Qualified Code(s): K70.31 - Alcoholic cirrhosis of liver with ascites (7) Coronary artery disease Current Visit: Yes Status: Chronic Qualifiers: Coronary Disease-Associated Artery/Lesion type: [place] artery [place] vs. 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1) % Plt Count 111 L 116 L (140-400) K/mcL Neutrophils # 16.0 H 16.1 H (1.6-8.9) K/mcL BMP 08/06/17 04:58 Sodium 136 Potassium 4.4 Chloride 91 L Carbon Dioxide 37 H BUN 65 H D Creatinine 2.03 H Glucose 185 H Calcium 9.7 Urine 08/05/17 Range/Units 22:20 Urine Color Dark Yellow (Yellow) Urine Clarity Clear (Clear) Urine pH 5.5 (5.0-8.0) pH Units Ur Specific [place] 1.019 (1.010-1.025) Urine Protein 30 H (Neg-Trace) mg/dL Urine Glucose (UA) Normal (Normal) mg/dL - ABG Interpretation ABG results: ABG ABG pH 7.45 pH Units (7.32-7.45) 08/01/17 05:05 ABG pCO2 62 mmHg (35-45) H 08/01/17 05:05 ABG pO2 80 mmHg (85-104) L 08/01/17 05:05 ABG O2 Saturation 96 % (95-98) 08/01/17 05:05 - Impressions Impressions Retroperitoneum Ultrasound 08/05/17 17:00 IMPRESSION: Unremarkable ultrasound of the kidneys. Urinary bladder poorly evaluated due to underdistention. D/ / 08/05/2017 21:07:47 Adam Akers MD / moe Interpreting Provider: Adam Akers MD - Attending Attestation I examined this patient and my medical decision-making was reviewed with the Resident Physician on 08/06/17. I agree with the documented findings, disposition and treatment plan as described except to the extent set forth below. Mr. Ruiz is currently admitted for acute exac CHF. He has developed ASIM and has clinical picture of cirrhosis as well. Today he is anemic and requires transfusion. He remains moderate to high risk due to potential for worsening resp status. Mr Ruiz is quite dyspneic with movement. Renal function not worsened. No CP. No fever or chills. BP still on lower side. Tolerated albumin. Exam Alert. Mod distress due to resp issues. Mucus membranes dry Heart irreg - somewhat tachy after movement Lungs with scattered rales in bases Abd soft Edema persists I/P 1. ASIM 2. Anemia - microcytic. To get blood today. 3. CHF Further diagnoses and plan as above.
--- NOTE | 2017-08-06 10:23 | Nephrology Progress Note ---
Date of Encounter: 08/06/17 Time of Encounter: 08:50 - Assessment and Plan (1) Acute kidney injury Current Visit: Yes Status: Acute Nonoliguric ASIM and stable today, which is reassuring. No need for MAMMOGRAPHY TECH at this time. Continue Albumin; holding lasix for about another 24-48hr Acute on chronic anemia; with the Hgb trending down to 7.1, would recommend 1-2 units PRBC to be transfused. Relative hypotension still. So will continue Albumin 25gm but also add Midodrine today. Meanwhile, continue to follow a renal protective / conservative strategy. Will follow with you. Discussed with the Hospitalist team. Thank you. (2) Anasarca Current Visit: Yes Status: Acute See above (3) Acute on chronic systolic (congestive) heart failure Current Visit: Yes Status: Acute See above (4) Anemia Current Visit: Yes Status: Acute See above Qualifiers: Anemia type: iron deficiency Iron deficiency anemia type: unspecified iron deficiency Qualified Code(s): D50.9 - Iron deficiency anemia, unspecified (5) Cirrhosis Current Visit: Yes Status: Suspected See above Qualifiers: Hepatic cirrhosis type: unspecified hepatic cirrhosis Ascites presence: with ascites Qualified Code(s): K74.60 - Unspecified cirrhosis of liver Objective - Vital Signs Vital signs: Vital Signs Temp Pulse Resp BP Pulse Ox 08/06/17 07:36 97.6 F 80 12 93/70 93 08/06/17 05:37 97.5 F L 96 20 99/64 94 08/06/17 04:07 91 08/05/17 22:24 18 91 08/05/17 16:00 103 18 90/54 Intake and Output 08/05/17 08/06/17 08/06/17 23:59 07:59 15:59 Intake Total 340 / 340 100 / 100 240 / 240 Output Total 125 / 125 200 / 200 Balance 340 / 340 -25 / -25 40 / 40 Intake: IV Fluids 100 / 100 100 / 100 Flexbumin 25 gm In 100 ml @ 60 100 / 100 100 / 100 mls/hr IVPB Q8HR TAO Rx#: [id number] Oral 240 / 240 0 / 0 240 / 240 Output: Urine 125 / 125 200 / 200 Other: Meal Dinner Breakfast Percent of Meal Consumed 100% 90% # Voids 0 Weight 86.9 kg Blood Glucose* 176 181 Patient Weight 08/06/17 23:59 Weight 86.9 kg - General Appearance General appearance: Present: well-developed, appears started age, obese, chronically ill, fatigue EENT: Present: ATNC, PERRL, mucous membranes moist Neck: Present: supple Respiratory: Present: clear Cardiology: Present: no edema, edema (pitting edema up to abd john), normal S1 , normal S2 Gastrointestinal: Present: normoactive bowel sounds, no tenderness, no guarding , obese Integumentary: Present: warm and dry Neurologic: Present: no focal deficit, asterixis, alert and oriented x3 Musculoskeletal: Present: no erythema, no clubbing Psychiatric: Present: mood/affect appropriate, cooperative - Lab 08/06/17 08:04 08/06/17 04:58 Most recent lab results ABG pH 7.45 pH Units (7.32-7.45) 08/01/17 05:05 ABG pCO2 62 mmHg (35-45) H 08/01/17 05:05 ABG pO2 80 mmHg (85-104) L 08/01/17 05:05 ABG HCO3 43 mEq/L (21-27) H 08/01/17 05:05 ABG O2 Saturation 96 % (95-98) 08/01/17 05:05 Calcium 9.7 mg/dL (8.6-10.8) 08/06/17 04:58 Urine Creatinine 177 mg/dL 08/05/17 22:20 Urine Sodium < 20.0 mEq/L 08/05/17 22:20 - VTE Documentation of Mechanical Device: Graduated compression elastic hosiery Consult Discharge Plan - Plan Instructions: Heart Failure (DC), Atrial Flutter (DC), Atrial Fibrillation (DC) , Acute Respiratory Distress Syndrome (DC), Acute Kidney Injury (DC), Acute Kidney Injury (GEN), Diabetes Mellitus Type 2 in Adults (DC), Chronic Obstructive Pulmonary Disease (DC), Anemia (GEN), Pneumonia (DC), Cigarette Smoking and Your Health, Cell Stripper Final (GEN) Additional Instructions: pcp requested Referrals: Tawanda Chi MD [Primary Care Provider] - 08/08/17 10:30 am
[2017-08-06] MEDS ORDERED: 0.9 % Sodium Chloride 500 ML ONE (10:57)
[2017-08-06] MEDS: Budesonide/Formoterol 160/4.5 MDI IH SCH ×2 (11:02→23:37)
[2017-08-06] MEDS: *HR* HYDROcodone/Acet 7.5/325 mg TABLET PO PRN (18:51)
[2017-08-06] MEDS: Insulin DETEMIR 100 UNIT/ML X5UNITS SQ SCH (21:00)
[2017-08-07] MEDS: GuaiFENesin Liq 200 MG/10 ML UDC PO SCH ×5 (01:24→23:28)
[2017-08-07] MEDS: Albumin 25% 25gram/100mL 25 GM/100 ML IV.SOLN IVPB SCH ×3 (01:26→16:20)
[2017-08-07] MEDS: Ipratropium/Albuterol Neb 3 ML IH SCH ×4 (04:15→23:28)
[2017-08-07 04:35] LABS: Immature Granulocytes % 0.7 % (0-4); Red Cell Distribution Width 24.2 % (11.5-14.5)
[2017-08-07 04:36] LABS: Basophils % 0.2 %; Eosinophils # 0.1 K/mcL (0.0-0.6); Eosinophils % 0.5 %; Hematocrit 26.2 % (37.5-50.1); Hemoglobin 7.6 g/dL (12.9-16.9); Lymphocytes # 1.7 K/mcL (0.6-4.6); Lymphocytes % 7.5 %; Mean Corpuscular Hemoglobin 23.6 pg (28.0-33.3); Mean Corpuscular Volume 81.4 fL (83.0-100.0); Mean Platelet Volume 10.9 fL (9.4-12.4); Monocytes # 1.7 K/mcL (0.0-1.3); Monocytes % 7.7 %; Neutrophils # 18.4 K/mcL (1.6-8.9); Platelet Count 105 K/mcL (140-400); Red Blood Count 3.22 M/mcL (4.19-5.50); Segmented Neutrophils % 83.4 %
[2017-08-07 04:42] LABS: INR 1.5; Prothrombin Time 16.2 Seconds (9.4-12.1)
[2017-08-07 04:52] LABS: Anisocytosis 3+ (Not Present); Hypochromasia Present (Not Present); Macrocytosis Present (Not Present); Microcytosis Present (Not Present); Platelet Estimate Slight Decrease (Normal); Poikilocytosis 1+ (Not Present); Polychromasia 1+ (Not Present); Target Cells 1+ (Not Present)
[2017-08-07 04:53] LABS: Calcium 9.7 mg/dL (8.6-10.8); Potassium 4.9 mEq/L (3.5-4.5)
[2017-08-07] MEDS: *HR* Enoxaparin 40 MG/0.4 ML SYRINGE SQ SCH (05:40)
[2017-08-07] MEDS: Gabapentin 300 MG CAPSULE PO SCH ×3 (07:43→22:21)
[2017-08-07] MEDS: Aspirin 81 MG TAB.CHEW PO SCH (07:43)
[2017-08-07] MEDS: Insulin LISPRO 300 UNITS/3 ML VIAL SQ SCH ×4 (07:45→22:21)
[2017-08-07] MEDS ORDERED: levoFLOXacin 750 MG TABLET PO SCH (09:00)
--- NOTE | 2017-08-07 09:03 | Nephrology Progress Note ---
Date of Encounter: 08/07/17 Time of Encounter: 08:45 - Assessment and Plan (1) Acute kidney injury Current Visit: Yes Status: Acute SCr trending better but his volume status is worsening so will have to resume loop diuretics and to help minimize the expected worsening of diuretics on the moderate level of met alkalosis, I recommend adding Acetazolimide. Will uptitrate the Midodrine as well; BPs are some what better "Tremor" is probably asterixis d/t his cirrhosis of the liver. Fortunately ammonia levels were not severely elevated. Mild hyponatremia: likely hypervolemic hyponatremia Mild hyperkalemia at 4.9: starting diuretics today which should help produce a kaliuresis effect that would lower the serum K+ level. Anemia; did not improve by 1gm s/p 1 unit of PRBCs, which is interesting. Recommend checking a FOBT, and I asked the floor RN to help collect. Meanwhile, continue to follow a renal protective / conservative strategy. Will follow with you. Discussed with the Hospitalist team. The pt's was present and I had a nice, pleasant conversation with her including outlining the plan of care with my recommendations. Thank you. (2) Anasarca Current Visit: Yes Status: Acute See above (3) Acute on chronic systolic (congestive) heart failure Current Visit: Yes Status: Acute See above (4) Anemia Current Visit: Yes Status: Acute See above Qualifiers: Anemia type: iron deficiency Iron deficiency anemia type: other iron deficiency Qualified Code(s): D50.8 - Other iron deficiency anemias (5) Cirrhosis Current Visit: Yes Status: Suspected See above. Midodrine, Albumin and Loop diuretics. May need to add Spironolactone at some point. Qualifiers: Hepatic cirrhosis type: unspecified hepatic cirrhosis Ascites presence: with ascites Qualified Code(s): K74.60 - Unspecified cirrhosis of liver Subjective Principal diagnosis: ASIM Interval history: Pt was s/e and reported more shortness of breath and feeling more swollen today. He did report eating well without affirming dysquesia or N/V/D. His and the floor RN were present. I helped answer all her questions. The IM resident also walked into the room to see the patient. Objective - Vital Signs Vital signs: Vital Signs Temp Pulse Resp BP Pulse Ox 08/07/17 06:32 98.3 F 96 15 109/54 96 10/01/17 05:04 98.6 F 94 17 114/76 97 08/07/17 04:16 92 08/07/17 04:15 18 92 08/06/17 23:51 97.7 F 98 20 97/66 93 08/06/17 23:38 19 92 08/06/17 20:00 109 103/68 08/06/17 19:47 97.9 F 101 17 120/79 92 08/06/17 16:08 97.8 F 101 15 114/75 95 08/06/17 15:56 18 95 08/06/17 11:41 97.8 F 101 16 106/73 95 08/06/17 11:26 98 F 88 18 103/71 90 08/06/17 11:03 16 97 Intake and Output 08/06/17 08/07/17 08/07/17 23:59 07:59 15:59 Intake Total 340 / 340 0 / 0 Output Total 350 / 350 0 / 0 Balance -10 / -10 0 / 0 Intake: IV Fluids 100 / 100 Flexbumin 25 gm In 100 ml @ 60 100 / 100 mls/hr IVPB Q8HR [facility] Rx#: [id number] Oral 240 / 240 0 / 0 Output: Urine 350 / 350 0 / 0 Other: Stool Size Copious Stool Consistency soft Stool Characteristics Normal for Patient Stool Color Brown Weight 93.59 kg Blood Glucose* 263 160 Patient Weight 08/07/17 23:59 Weight 93.59 kg - General Appearance Exam: General appearance: Present: well-developed, appears started age, obese, chronically ill, fatigue EENT: Present: ATNC, PERRL, mucous membranes moist Neck: Present: supple Respiratory: Present: clear Cardiology: Present: edema (pitting 2+ edema up to abd john), normal S1, normal S2 Gastrointestinal: Present: normoactive bowel sounds, no tenderness, no guarding , obese Integumentary: Present: warm and dry Neurologic: Present: no focal deficit, asterixis, alert and oriented x3 Musculoskeletal: Present: no erythema, no clubbing Psychiatric: Present: mood/affect appropriate, cooperative - Lab 08/07/17 04:27 08/07/17 04:27 Most recent lab results ABG pH 7.45 pH Units (7.32-7.45) 08/01/17 05:05 ABG pCO2 62 mmHg (35-45) H 08/01/17 05:05 ABG pO2 80 mmHg (85-104) L 08/01/17 05:05 ABG HCO3 43 mEq/L (21-27) H 08/01/17 05:05 ABG O2 Saturation 96 % (95-98) 08/01/17 05:05 Calcium 9.7 mg/dL (8.6-10.8) 08/07/17 04:27 Urine Creatinine 177 mg/dL 08/05/17 22:20 Urine Sodium < 20.0 mEq/L 08/05/17 22:20 - VTE Documentation of Mechanical Device: Graduated compression elastic hosiery Consult Discharge Plan - Plan Instructions: Heart Failure (DC), Atrial Flutter (DC), Atrial Fibrillation (DC) , Acute Respiratory Distress Syndrome (DC), Acute Kidney Injury (DC), Acute Kidney Injury (GEN), Diabetes Mellitus Type 2 in Adults (DC), Chronic Obstructive Pulmonary Disease (DC), Anemia (GEN), Pneumonia (DC), Cigarette Smoking and Your Health, Routing Equipment Tender (GEN) Additional Instructions: pcp requested Referrals: Tawanda Chi MD [Primary Care Provider] - 08/08/17 10:30 am
--- NOTE | 2017-08-07 09:21 | Internal Med Progress Note ---
<Dionte Jimenez - Last Filed: 08/07/17 10:45> Date of Encounter: 08/07/17 Time of Encounter: 09:18 - Assessment and plan (1) Acute kidney injury Current Visit: Yes Status: Acute Assessment and plan: 2nd to diuresis contraction alkalosis improved with albumin and 1PBRC transfusion. patient more volume overloaded nephrology to start patient on diuresis again. continue midodrine to help maintain BP. albumin being administered. retroperitoneal US WNL I/O 675 output in last 24 hours. BMP in am appreciate nephrology recommendations (2) Cirrhosis Current Visit: Yes Status: Suspected Assessment and plan: currently etiology but alcohol may have played a rale as patient admits to drinking 3-4 beers in the past (has not had drink in [address]/Abdomen pelvis in 12/2016 showed evidence of ascties and cirrhosis Liver US confirmed finding hepatitis panel negative antismooth muscle antibiody pending Will get GI oupatient follow up. Qualifiers: Hepatic cirrhosis type: unspecified hepatic cirrhosis Ascites presence: with ascites Qualified Code(s): K74.60 - Unspecified cirrhosis of liver (3) Anemia Current Visit: Yes Status: Acute Assessment and plan: Microcytic anemia 2nd to anemia of chronic disease as well as iron def anemia hgb improved minimally to 7.6. hx of CAD colonoscopy in 2016 negative for polyps/cancer, showed internal hemmroids egd negative as well in february for any stigmata of bleeding cbc in AM. FBOT ordered Qualifiers: Anemia type: iron deficiency Iron deficiency anemia type: other iron deficiency Qualified Code(s): D50.8 - Other iron deficiency anemias (4) Acute on chronic respiratory failure with hypoxemia Current Visit: Yes Status: Resolved Assessment and plan: Secondary to CHF exacerbation, pneumonia. We held diuresis due to development of hypotenstion. on home 3L O2 oxygenating >90% continue to monitor (5) Acute on chronic systolic (congestive) heart failure Current Visit: Yes Status: Acute Assessment and plan: Previous echo shows EF of 40% with abnormal septal motion, dilated right ventricle, moderate pulmonary hypertension. New echo pending resuing diuresis strict I/O worsening sob and lower extremity edema patient encouraged to prop up legs on stool (6) Coronary artery disease Current Visit: Yes Status: Chronic Assessment and plan: Received stents in Dec 2016. Continue Plavix and statin and aspirin. Qualifiers: Coronary Disease-Associated Artery/Lesion type: [place] artery [place] vs. transplanted heart: [place] heart Associated angina: without angina Qualified Code(s): I25.10 - Atherosclerotic heart disease of [place] coronary artery without angina pectoris (7) Diabetes mellitus type 2 in nonobese Current Visit: Yes Status: Chronic Assessment and plan: Controlled. Continue diabetic diet. Continue SS insulin. (8) Leukocytosis Current Visit: Yes Status: Chronic Assessment and plan: acute on chronic; follows with Hematology; Negative for hepatitis Peripheral blood smear negative BCR/ABL negative Follow up outpatient with oncology Qualifiers: Leukocytosis type: unspecified Qualified Code(s): D72.829 - Elevated white blood cell count, unspecified (9) Atrial flutter Current Visit: Yes Status: Acute Assessment and plan: After left heart catheterization in December patient had episode of a flutter Patient was initially started on xarelto this was discontinued due to nosebleeds. Currently regular rate and rhythm Qualifiers: Atrial flutter type: unspecified Qualified Code(s): I48.92 - Unspecified atrial flutter (10) Pneumonia Current Visit: Yes Status: Suspected Assessment and plan: Patient does not report symptoms of coughing, and is using home oxygen at 3 L. pneumonia suspected but less likely. had five days levaquin. resolved. Qualifiers: Pneumonia type: due to unspecified organism Laterality: right Lung location: lower lobe of lung Qualified Code(s): J18.1 - Lobar pneumonia, unspecified organism - Subjective Interval history: sob worse this morning. LE swelling worse as well. He has episodes of asterixis that resolved last night. - Constitutional Vitals: Temp Pulse Resp BP Pulse Ox 98.3 F 96 15 109/54 96 08/07/17 06:32 08/07/17 06:32 08/07/17 06:32 08/07/17 06:32 08/07/17 06:32 General appearance: Present: A&O X 3 (facial puffiness noted), answers questions appropriately - Respiratory Respiratory exam: Present: accessory muscle use, decreased breath sounds, rales (bibasilar ), wheezes - Cardiovascular Cardiovascular exam: Present: RRR, +S1, +S2. Absent: diastolic murmur, gallop, rubs, systolic murmur - Extremities Exam Extremities exam: Present: pedal edema (3+) Additional comments: swelling up ot abdomen. worsening. - Psychiatric Psychiatric exam: Present: anxious, depressed Internal Medicine: Result - Labs CBC & Chem 7: 08/07/17 04:27 08/07/17 04:27 Labs: Short CBC 08/07/17 Range/Units 04:27 WBC 22.1 H (4.3-11.1) K/mcL Hgb 7.6 L (12.9-16.9) g/dL Hct 26.2 L (37.5-50.1) % Plt Count 105 L (140-400) K/mcL Neutrophils # 18.4 H (1.6-8.9) K/mcL BMP 08/07/17 04:27 Sodium 135 L Potassium 4.9 H Chloride 91 L Carbon Dioxide 37 H BUN 80 H Creatinine 1.78 H Glucose 162 H Calcium 9.7 - ABG Interpretation ABG results: ABG ABG pH 7.45 pH Units (7.32-7.45) 08/01/17 05:05 ABG pCO2 62 mmHg (35-45) H 08/01/17 05:05 ABG pO2 80 mmHg (85-104) L 08/01/17 05:05 ABG O2 Saturation 96 % (95-98) 08/01/17 05:05 PT/INR, D-dimer PT 16.2 Seconds (9.4-12.1) H 08/07/17 04:27 - VTE Documentation of Mechanical Device: Graduated compression elastic hosiery Consult Discharge Plan - Plan Instructions: Heart Failure (DC), Atrial Flutter (DC), Atrial Fibrillation (DC) , Acute Respiratory Distress Syndrome (DC), Acute Kidney Injury (DC), Acute Kidney Injury (GEN), Diabetes Mellitus Type 2 in Adults (DC), Chronic Obstructive Pulmonary Disease (DC), Anemia (GEN), Pneumonia (DC), Cigarette Smoking and Your Health, Sdv Pilot/Navigator/Dds Operator (GEN) Additional Instructions: pcp requested Referrals: Tawanda Chi MD [Primary Care Provider] - 08/08/17 10:30 am <Janusz Ponce - Last Filed: 08/07/17 17:44> Date of Encounter: 08/07/17 - Assessment and plan (1) Acute on chronic respiratory failure with hypoxemia Current Visit: Yes Status: Resolved (2) Anemia Current Visit: Yes Status: Acute Qualifiers: Anemia type: iron deficiency Iron deficiency anemia type: other iron deficiency Qualified Code(s): D50.8 - Other iron deficiency anemias (3) Acute kidney injury Current Visit: Yes Status: Acute (4) Acute on chronic systolic (congestive) heart failure Current Visit: Yes Status: Acute (5) Cirrhosis Current Visit: Yes Status: Suspected Qualifiers: Hepatic cirrhosis type: alcoholic cirrhosis Ascites presence: with ascites Qualified Code(s): K70.31 - Alcoholic cirrhosis of liver with ascites (6) Coronary artery disease Current Visit: Yes Status: Chronic Qualifiers: Coronary Disease-Associated Artery/Lesion type: [place] artery [place] vs. 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 watermelon harvesting supervisor insulin use: with watermelon harvesting supervisor use Qualified Code(s): E11.65 - Type 2 diabetes mellitus with hyperglycemia; Z79.4 - supervisor intermediates (current) use of insulin (8) Interstitial lung disease Current Visit: No Status: Chronic - Constitutional Vitals: Temp Pulse Resp BP Pulse Ox 98.5 F 104 16 135/85 94 08/07/17 15:00 08/07/17 15:00 08/07/17 16:28 08/07/17 15:00 08/07/17 16:28 Internal Medicine: Result - Labs CBC & Chem 7: 08/07/17 04:27 08/07/17 04:27 Labs: Short CBC 08/07/17 Range/Units 04:27 WBC 22.1 H (4.3-11.1) K/mcL Hgb 7.6 L (12.9-16.9) g/dL Hct 26.2 L (37.5-50.1) % Plt Count 105 L (140-400) K/mcL Neutrophils # 18.4 H (1.6-8.9) K/mcL BMP 08/07/17 04:27 Sodium 135 L Potassium 4.9 H Chloride 91 L Carbon Dioxide 37 H BUN 80 H Creatinine 1.78 H Glucose 162 H Calcium 9.7 - ABG Interpretation ABG results: ABG ABG pH 7.45 pH Units (7.32-7.45) 08/01/17 05:05 ABG pCO2 62 mmHg (35-45) H 08/01/17 05:05 ABG pO2 80 mmHg (85-104) L 08/01/17 05:05 ABG O2 Saturation 96 % (95-98) 08/01/17 05:05 PT/INR, D-dimer PT 16.2 Seconds (9.4-12.1) H 08/07/17 04:27 - Impressions Impressions Echocardiogram 08/05/17 15:25 Impressions: LVEF technically difficult study, limited views, est EF 45%%. Mildly enlarged left atrial size. Mild hypokinesis of the right ventricle. Mildly enlarged right atrial size. Aortic valve: trileaflet, opens well, no significant , trace AI no significant MR, prolapse or MS mitral stenosis. Moderate tricuspid regurgitation. Mild pulmonic regurgitation. Pericardium: no significant effusion Techincally limited study, no significant change from 12/2016 Moderately dilated right ventricle, septal flattening consistent wih RV pressure overload. Findings: Retroperitoneum Ultrasound 08/05/17 17:00 IMPRESSION: Unremarkable ultrasound of the kidneys. Urinary bladder poorly evaluated due to underdistention. D/ / 08/05/2017 21:07:47 Adam Akers MD / moe Interpreting Provider: Adam Aekrs MD - Attending Attestation I examined this patient and my medical decision-making was reviewed with the Resident Physician on 08/07/17. I agree with the documented findings, disposition and treatment plan as described except to the extent set forth below. Mr. Ruiz is currently admitted for acute exac CHF. He has developed ASIM. He also has cirrhosis. He remains moderate to high risk due to potential for worsening renal and clinical status. Mr Ruiz still feels terrible. He is quite edematous. He has some shakiness. No fever or chills. H/H still low. No GI issues. Exam alert. Mild distress. Resting in bed. Mucus membranes dry Heart irreg - not tachy Lungs diminished Abd soft Edematous I/P 1. Anasarca 2. ASIM 3. Cirrhosis Further diagnoses and plan as above.
[2017-08-07] MEDS: Furosemide 40 MG/4 ML VIAL IVP SCH ×3 (11:13→22:20)
[2017-08-07] MEDS: Budesonide/Formoterol 160/4.5 MDI IH SCH ×2 (11:30→23:28)
[2017-08-07] MEDS: Insulin DETEMIR 100 UNIT/ML X5UNITS SQ SCH (22:21)
[2017-08-07] MEDS: *HR* HYDROcodone/Acet 7.5/325 mg TABLET PO PRN (23:28)
[2017-08-08] MEDS: Albumin 25% 25gram/100mL 25 GM/100 ML IV.SOLN IVPB SCH ×2 (00:21→15:02)
[2017-08-08] MEDS ORDERED: Gabapentin 100 MG CAPSULE PO ONE (00:34)
[2017-08-08] MEDS: Ipratropium/Albuterol Neb 3 ML IH SCH ×4 (05:14→23:24)
[2017-08-08] MEDS: GuaiFENesin Liq 200 MG/10 ML UDC PO SCH ×4 (05:58→23:44)
[2017-08-08 07:32] LABS: Eosinophils % 0.6 %; Hemoglobin 6.6 g/dL (12.9-16.9); Immature Granulocytes % 0.4 % (0-4); Platelet Count 119 K/mcL (140-400); Red Cell Distribution Width 25.6 % (11.5-14.5)
[2017-08-08 07:34] LABS: Basophils # 0.1 K/mcL (0.0-0.2); Basophils % 0.3 %; Eosinophils # 0.1 K/mcL (0.0-0.6); Hematocrit 22.6 % (37.5-50.1); Lymphocytes % 9.7 %; Mean Corpuscular HGB Conc 29.2 g/dL (31.6-35.5); Mean Corpuscular Volume 82.2 fL (83.0-100.0); Mean Platelet Volume 11.9 fL (9.4-12.4); Monocytes # 1.5 K/mcL (0.0-1.3); Monocytes % 8.7 %; Red Blood Count 2.75 M/mcL (4.19-5.50); Segmented Neutrophils % 80.3 %
[2017-08-08 07:35] LABS: Lymphocytes # 1.7 K/mcL (0.6-4.6); Neutrophils # 13.7 K/mcL (1.6-8.9)
[2017-08-08] MEDS: Insulin LISPRO 300 UNITS/3 ML VIAL SQ SCH ×3 (07:44→16:14)
[2017-08-08 07:52] LABS: Anisocytosis 2+ (Not Present); Hypochromasia Present (Not Present); Microcytosis Present (Not Present); Polychromasia 1+ (Not Present)
[2017-08-08 07:53] LABS: Platelet Estimate Slight Decrease (Normal)
[2017-08-08 08:33] LABS: BUN/Creatinine Ratio 65 (6-26); Blood Urea Nitrogen 81 mg/dL (8-26); Calcium 9.3 mg/dL (8.6-10.8); Carbon Dioxide 32 mEq/L (19-29); Chloride 95 mEq/L (98-109); Glucose 110 mg/dL (70-99); Osmolality,Calculated 307 (280-300); Potassium 4.2 mEq/L (3.5-4.5); Sodium 136 mEq/L (136-145); eGFR For African Americans > 60 (> 60); eGFR For Non-African Americans 60 (> 60)
[2017-08-08 08:54] LABS: ANA IgG by ELISA NONE DETECTED (None Detected); Smooth Muscle Ab Titer IgG <1:20 (<1:20)
[2017-08-08] MEDS: Furosemide 40 MG/4 ML VIAL IVP SCH ×2 (09:37→15:20)
[2017-08-08] MEDS: Gabapentin 300 MG CAPSULE PO SCH ×3 (09:37→19:44)
[2017-08-08] MEDS ORDERED: 0.9 % Sodium Chloride 250 ML ONE (09:51)
--- NOTE | 2017-08-08 10:05 | Nephrology Progress Note ---
Date of Encounter: 08/08/17 Time of Encounter: 10:01 - Assessment and Plan (1) Acute kidney injury Current Visit: No Status: Acute 57-year-old male admitted for CHF exacerbation and acute on chronic respiratory failure. Baseline creatinine 1.0 and GFR greater than 60. Patient was undergoing diuresis in the setting of volume overload and developed acute kidney injury. IV diuresis was discontinued 2 days prior to this consult and the patient was provided normal saline IV without response. Acute kidney injury continued to worsen with a current creatinine of 2.10 and GFR of 32, BUN elevated from 27-46. -Supporting history: Patient has a known history of systolic heart failure with ejection fraction of 40% currently undergoing treatment for CHF exacerbation, known type II diabetic with most recent hemoglobin A1c of 7.7 with current glucose levels around 200. new diagnosis of liver cirrhosis with a liver ultrasound cirrhotic morphology of the liver with trace perihepatic ascites. 08/08: Creatinine improving currently 1.24, GFR greater than 60. Mr. Ruiz continues to receive IV albumin 25 g every 8 hours and IV Lasix 40 mg IV 3 times a day. Plan to continue IV diuresis for 1 more day and plan to switch to oral diuretics tomorrow. We will likely hold Bumex at the time of discharge and discharge with oral Lasix. Metabolic alkalosis improving after receiving Acetazolamide 1 dose with current bicarbonate level 32. We will monitor bicarbonate level with no further Acetazolamide at this time. If his bicarbonate continues to elevate while receiving IV Lasix it may be necessary to provide another dose. - Patient does have elevated BUN in the setting of improving renal function with acute anemia which is concerning for acute blood loss anemia. With the setting of liver failure and current drowsiness and occasional hallucinations he may be encephalopathic and recommend rechecking ammonia level. Plan: - Continue albumin to increase vascular volume and increase renal perfusion. - Continue IV Lasix 3 times a day, plan to switch to oral diuretics tomorrow. - Plan to restart spironolactone with adjustment of diuretics tomorrow. - Tolerating Midodrine 5mg as scheduled. - Monitor bicarbonate level if continues to increase he may require another dose of Acetazolamide - Strict intake and output monitoring, standing daily weights - Avoid nephrotoxic medication and renally dose antibiotics - At time of discharge it would be recommended to hold Bumex and continue with oral Lasix. (2) Type 2 diabetes mellitus Current Visit: Yes Status: Chronic Patient is a known type II diabetic, current glucoses have been around 200 withan A1C of 7.7. Plan: - Management per primary team - Recommend tighter glucose control for renal benefit. Qualifiers: Diabetes mellitus complication status: with hyperglycemia Diabetes mellitus penitentiary insulin use: with local company intermodal truck driver use Qualified Code(s): E11.65 - Type 2 diabetes mellitus with hyperglycemia; Z79.4 - custodial (current) use of insulin (3) Anemia Current Visit: Yes Status: Acute Hemoglobin 6.6 down from 7.6 yesterday after receiving 1 unit PRBCs. Review of patient's chart demonstrates chronic microcytic anemia but with current drop in hemoglobin and hematocrit this is likely acute blood loss anemia. Stool guaiac was positive yesterday. Supporting factors include recent hospitalization with intubation increases risk for stress ulcer formation. He also has liver failure with ascites and may have esophageal varices and may be leaking. This was discussed with the primary team and recommend consult to gastroenterology. - Recommend gastroenterology involvement - Recommend PRBC transfusion discussed with primary team. Qualifiers: Qualified Code(s): D50.8 - Other iron deficiency anemias Subjective Principal diagnosis: ASIM Interval history: Mr. Ruiz 57-year-old male has been seen and evaluated patient bedside today. His is present during our discussion. She is concerned that he is a little more confused compared to yesterday and said that he is hearing things and seeing things that are not there. He feels that his shortness of breath has improved and denies any pain, discomfort, chest pains, palpitations, abdominal pain, nausea vomiting but did have an episode of diarrhea yesterday. His is concerned that adequate urinary output and weights have not been recorded correctly for which she had a discussion and will ensure that there is strict intake and output monitoring and standing daily weights. Objective - Vital Signs Vital signs: Vital Signs Temp Pulse Resp BP Pulse Ox 08/08/17 07:45 99.2 F 91 20 108/73 08/08/17 07:00 94 19 86/72 08/08/17 05:15 18 91 08/08/17 04:35 98.4 F 88 14 101/69 94 08/08/17 00:10 98.0 F 105 17 123/76 91 08/07/17 23:28 20 91 08/07/17 20:20 98.9 F 110 19 117/73 94 08/07/17 16:28 16 94 08/07/17 15:00 98.5 F 104 16 135/85 94 08/07/17 11:09 98.3 F 103 17 135/85 97 Intake and Output 08/07/17 08/08/17 08/08/17 23:59 07:59 15:59 Intake Total 100 / 100 120 / 120 Balance 100 / 100 120 / 120 Intake: IV Fluids 100 / 100 Flexbumin 25 gm In 100 ml @ 60 100 / 100 mls/hr IVPB Q8HR [facility] Rx#: [id number] Oral 120 / 120 Other: Meal Breakfast Percent of Meal Consumed 50% Weight 94.8 kg Blood Glucose* 239 120 Patient Weight 08/08/17 23:59 Weight 94.8 kg - General Appearance Exam: General: Patient drowsy, awake, oriented 3, interactive, in no acute distress HEENT: Normocephalic, atraumatic, pupils equal reactive to light, oral mucosa moist, neck supple trachea midline no palpable lymphadenopathy, no thyromegaly. Chest: Symmetric bilateral correlating with respiratory effort, effort nonlabored. Cardiac: Regular rate and rhythm, positive S1 and S2. no bruits appreciated bilateral carotids, Radial pulses 2+ bilateral, posterior tibial and dorsal pedal pulses 2+ bilateral. Respiratory: Diffuse rhonchi and expiratory wheeze. Abdomen: Soft, nontender, positive bowel sounds, positive fluid wave. Extremities: Symmetric bilateral, bilateral lower extremities with 3+ pitting and near weeping edema. Neurologic: No focal deficits appreciated on examination. Face symmetric, muscle strength symmetric bilateral upper and lower extremities. - Lab 08/08/17 07:27 08/08/17 07:27 Most recent lab results ABG pH 7.45 pH Units (7.32-7.45) 08/01/17 05:05 ABG pCO2 62 mmHg (35-45) H 08/01/17 05:05 ABG pO2 80 mmHg (85-104) L 08/01/17 05:05 ABG HCO3 43 mEq/L (21-27) H 08/01/17 05:05 ABG O2 Saturation 96 % (95-98) 08/01/17 05:05 Calcium 9.3 mg/dL (8.6-10.8) 08/08/17 07:27 Urine Creatinine 177 mg/dL 08/05/17 22:20 Urine Sodium < 20.0 mEq/L 08/05/17 22:20 - VTE Documentation of Mechanical Device: Graduated compression elastic hosiery Consult Discharge Plan - Plan Instructions: Heart Failure (DC), Atrial Flutter (DC), Atrial Fibrillation (DC) , Acute Respiratory Distress Syndrome (DC), Acute Kidney Injury (DC), Acute Kidney Injury (GEN), Diabetes Mellitus Type 2 in Adults (DC), Chronic Obstructive Pulmonary Disease (DC), Anemia (GEN), Pneumonia (DC), Cigarette Smoking and Your Health, Health Promotion Coordinator (GEN) Additional Instructions: pcp requested Referrals: Tawanda Chi MD [Primary Care Provider] - 08/08/17 10:30 am
--- NOTE | 2017-08-08 10:15 | Gastroenterology Consult Note ---
<Jessica Ferguson - Last Filed: 08/08/17 15:39> Date of Encounter: 08/08/17 Time of Encounter: 09:30 - Assessment and plan (1) Iron deficiency anemia Current Visit: Yes Status: Acute Assessment and plan: Pt has dark stools. No bright red bleeding noted. EGD 02/21 showed non-bleeding gastritis. Has continued drop in hemoglobin despite transfusion. Is being transfused today. Will proceed with EGD when pt is improved. (2) Cirrhosis of liver Current Visit: Yes Status: Acute Assessment and plan: Platelets and albumin low. Will monitor liver function tests. (3) CAD (coronary artery disease) Current Visit: Yes Status: Acute Assessment and plan: Pt had coronary stent 12/24 and is on plavix. May need held due to GI bleeding if ok with cardiology. Qualifiers: Coronary Disease-Associated Artery/Lesion type: unspecified vessel or lesion type [place] vs. transplanted heart: [place] heart Associated angina: angina presence unspecified Qualified Code(s): I25.10 - Atherosclerotic heart disease of [place] coronary artery without angina pectoris - Time Spent With Patient Total time spent is greater than 50% in coordination of care (as documented) at patient's floor/unit and/or counseling patient: GI History of Present Illness - Data of Consult Patient: known to practice within the last 3 years Consult date: 08/08/17 Requesting Physician: Janusz Ponce DO - Consult Narrative Reason for consult: anemia History of present illness: Mr. Ruiz is a 57 year old male who was admitted last week with CHF exacerbation. He has a pmxh of ARLETTE, CHF, COPD and CAD. He had EGD 02/21 for iron deficiency anemia which showed gastritis. He has a history of coronary stent in 12/24. He is on plavix at home, he denies ASA or NSAIDs. He presented with respiratory symptoms, Hgb was 8.4 on admission and has dropped to 6.6 despite blood transfusion. He denies any janelle bloody stools but states he has had black stools. He reports one episode of diarrhea last night. Occult blood was positive. He denies abdominal pain, nausea or vomiting. He reports possible low grade fever and chills last night. He has a history of ETOH use but states he quit 2 years ago. He was on Lovenox which has been stopped. AST is 22 ALT 21, platelets 119, albumin 2.6, total bili 0.8hepatitis panel was negative. Liver ultrasound showed trace parahepatic ascites. Colonoscopy: 2-3 years ago (polyps per pts reports) EGD: 02/21 non-bleeding gastritis Anticoagulants: plavix NSAIDs: denies Past Med Surg Social Fam HX - Past Medical History Medical history: atrial fibrillation, CHF, COPD, coronary artery disease, diabetes, GERD, hyperlipidemia, hypertension, myocardial infarction Psychiatric history: anxiety - Past Surgical History Surgical History: angioplasty/stent, appendectomy - Social History Smoking Status: Former smoker (80 pack year history) Packs per day: 2 Smokeless Tobacco Status: No Alcohol use: none Drug use: none - Family History Sister Adopted: No Family Member Ethnicity: Non- Living Status: Still Living Hx Family Cardiac Disorders: No Hx Family Respiratory Disorders: No Hx Family Cancer: Yes Hx Family GI Disorders: No Hx Family Endocrine Disorder: No (Possiblke thyroid) Hx Family Neuromuscular Disorders: No Hx Family Neurologic Disorders: No Hx Family HEENT Disorders: No Hx Family Autoimmune Disorders: No Brother Living Status: Still Living Hx Family Cardiac Disorders: Yes Father Living Status: Cause of : Pancreatic cancer Hx Family Cancer: Yes Mother Living Status: Hx Family Cardiac Disorders: Yes Hx Family Endocrine Disorder: Yes (diabetes) Review of Systems: GI: as per [place] GENERAL: lowgrade fever, has some chills EYES: denies yellow discoloration ENT: denies pain with swallowing or difficulty swallowing CARDIO: denies chest pain, palpitations RESP: chronic shortness of breath with exertion : denies change in color of urine NEURO: complains of weakness HEME: Denies any bruising MS: chronic joint pain, and back pain, pedal edema DERM: denies rash or itching PSYCH: Denies history of anxiety or depression - Constitutional Vitals: Temp Pulse Resp BP Pulse Ox 99.2 F 91 20 108/73 91 08/08/17 07:45 08/08/17 07:45 08/08/17 07:45 08/08/17 07:45 08/08/17 05:15 Exam: CONSTITUTIONAL:~alert, no acute distress.~HEAD:~normocephalic.~EYES:~no jaundice.~NECK:~no obvious swelling.~HEART:~regular rate and rhythm, no murmurs. ~LUNGS:~decreaesd air exchange bilaterally, ~ABDOMEN:~non distended, soft, non tender, obese no masses pulpable, no organomegaly.~RECTAL EXAM:~Deferred.~ EXTREMITIES:~no clubbing, or cyanosis, 2-3 + BLE edema.~SKIN:~no stigmata of chronic liver disease.~NEUROLOGIC:~no obvious focal defect.~~~~ Results - Labs CBC & Chem 7: 08/08/17 07:27 08/08/17 07:27 Labs: Last Result Calcium 9.3 mg/dL (8.6-10.8) 08/08/17 07:27 Troponin I 0.06 ng/mL (0-0.03) H* 08/01/17 07:01 Triglycerides 64 mg/dL (< 150) 08/01/17 01:12 Stool Occult Blood Positive (Negative) A 08/07/17 12:00 Entire Visit Hgb 6.6 g/dL (12.9-16.9) L 08/08/17 07:27 Hct 22.6 % (37.5-50.1) L 08/08/17 07:27 PT 16.2 Seconds (9.4-12.1) H 08/07/17 04:27 Total Bilirubin 0.8 mg/dL (0.2-1.2) 08/05/17 03:10 AST 22 Units/L (5-34) 08/05/17 03:10 ALT 21 Units/L (0-55) 08/05/17 03:10 Ammonia 16 mcmol/L (18-72) L 08/06/17 19:30 - ABG ABG results: ABG ABG pH 7.45 pH Units (7.32-7.45) 08/01/17 05:05 ABG pCO2 62 mmHg (35-45) H 08/01/17 05:05 ABG pO2 80 mmHg (85-104) L 08/01/17 05:05 ABG O2 Saturation 96 % (95-98) 08/01/17 05:05 PT/INR, D-dimer PT 16.2 Seconds (9.4-12.1) H 08/07/17 04:27 - Impressions Impressions Echocardiogram 08/05/17 15:25 Impressions: LVEF technically difficult study, limited views, est EF 45%%. Mildly enlarged left atrial size. Mild hypokinesis of the right ventricle. Mildly enlarged right atrial size. Aortic valve: trileaflet, opens well, no significant , trace AI no significant MR, prolapse or MS mitral stenosis. Moderate tricuspid regurgitation. Mild pulmonic regurgitation. Pericardium: no significant effusion Techincally limited study, no significant change from 12/2016 Moderately dilated right ventricle, septal flattening consistent wih RV pressure overload. Findings: Retroperitoneum Ultrasound 08/05/17 17:00 IMPRESSION: Unremarkable ultrasound of the kidneys. Urinary bladder poorly evaluated due to underdistention. D/ / 08/05/2017 21:07:47 Adam Akers MD / moe Interpreting Provider: Adam Akers MD Consult Discharge Plan - Plan Instructions: Heart Failure (DC), Atrial Flutter (DC), Atrial Fibrillation (DC) , Acute Respiratory Distress Syndrome (DC), Acute Kidney Injury (DC), Acute Kidney Injury (GEN), Diabetes Mellitus Type 2 in Adults (DC), Chronic Obstructive Pulmonary Disease (DC), Anemia (GEN), Pneumonia (DC), Cigarette Smoking and Your Health, Program Services Assistant (GEN) Additional Instructions: pcp requested Referrals: Tawanda Chi MD [Primary Care Provider] - 08/08/17 10:30 am <Therese Encarnacion - Last Filed: 08/08/17 17:48> Date of Encounter: 08/08/17 Time of Encounter: 13:00 - Time Spent With Patient Total time spent is greater than 50% in coordination of care (as documented) at patient's floor/unit and/or counseling patient: GI History of Present Illness - Data of Consult Requesting Physician: Janusz Ponce DO - Consult Narrative History of present illness: Mr. Ruiz is a 57 year old male - Constitutional Vitals: Temp Pulse Resp BP Pulse Ox 99.6 F 112 24 93/68 88 08/08/17 16:41 08/08/17 17:14 08/08/17 17:14 08/08/17 17:14 08/08/17 16:32 Results - Labs CBC & Chem 7: 08/08/17 16:20 08/08/17 07:27 Labs: Last Result Calcium 9.3 mg/dL (8.6-10.8) 08/08/17 07:27 Troponin I 0.06 ng/mL (0-0.03) H* 08/01/17 07:01 Triglycerides 64 mg/dL (< 150) 08/01/17 01:12 Stool Occult Blood Positive (Negative) A 08/07/17 12:00 Entire Visit Hgb 7.7 g/dL (12.9-16.9) L 08/08/17 16:20 Hct 26.3 % (37.5-50.1) L 08/08/17 16:20 PT 16.2 Seconds (9.4-12.1) H 08/07/17 04:27 Total Bilirubin 0.8 mg/dL (0.2-1.2) 08/05/17 03:10 AST 22 Units/L (5-34) 08/05/17 03:10 ALT 21 Units/L (0-55) 08/05/17 03:10 Ammonia 16 mcmol/L (18-72) L 08/06/17 19:30 - ABG ABG results: ABG ABG pH 7.45 pH Units (7.32-7.45) 08/01/17 05:05 ABG pCO2 62 mmHg (35-45) H 08/01/17 05:05 ABG pO2 80 mmHg (85-104) L 08/01/17 05:05 ABG O2 Saturation 96 % (95-98) 08/01/17 05:05 PT/INR, D-dimer PT 16.2 Seconds (9.4-12.1) H 08/07/17 04:27 - Impressions Impressions Chest X-Ray 08/08/17 16:47 IMPRESSION: Unchanged chest. Chronic interstitial lung disease. The findings were seen to better advantage on chest CT from 07/20/2017. D/ / 08/08/2017 17:12:49 Gonzalo Brumfield MD / moe Interpreting Provider: Gonzalo Brumfield MD - Attending Attestation I examined this patient and my medical decision-making was reviewed with the Resident Physician. I agree with the documented findings, disposition and treatment plan as described except to the extent set forth below. Pt with cHF exacerbation, anemia with dark stool, recent cardaic cath withs etnting, Rec: Follow H/H, no need to stop plavix
[2017-08-08] MEDS ORDERED: Pantoprazole 40 MG VIAL IVP SCH (10:30)
[2017-08-08] MEDS ORDERED: Furosemide 20 MG/2 ML VIAL IVP ONE (11:04)
[2017-08-08] MEDS: Budesonide/Formoterol 160/4.5 MDI IH SCH ×2 (11:18→23:30)
--- NOTE | 2017-08-08 11:28 | Cardiology Consult Note ---
Date of Encounter: 08/08/17 Time of Encounter: 11:22 Assessment and Plan (1) CAD (coronary artery disease) Current Visit: Yes Status: Acute Patient has a known history of CAD. Most recent cardiac catheterization in December of 2016 requiring SHEYLA placement in the LAD. Patient states that he has been taking his plavix but not aspirin. Patient denies any chest pain or palpitations at this time. We recommend continuing the patients plavix due to the recent stent placement. If the patient should require an EGD and the endooscopist prefers to perform the procedure without plavix it can be held and then it should be restarted after the procedure is completed. Qualifiers: Coronary Disease-Associated Artery/Lesion type: unspecified vessel or lesion type [place] vs. transplanted heart: [place] heart Associated angina: angina presence unspecified Qualified Code(s): I25.10 - Atherosclerotic heart disease of [place] coronary artery without angina pectoris (2) Congestive heart failure Current Visit: Yes Status: Acute Patient has congestive heart failure. BNP of 1264. Most recent ECHO showed LVEF technically difficult study, limited views, est EF 45%%. Mildly enlarged left atrial size. Mild hypokinesis of the right ventricle. Mildly enlarged right atrial size. Aortic valve: trileaflet, opens well, no significant , trace AI.no significant MR, prolapse or MS mitral stenosis.Moderate tricuspid regurgitation. Mild pulmonic regurgitation. Pericardium: no significant effusion. Techincally limited study, no significant change from 12/2016 Moderately dilated right ventricle, septal flattening consistent wih RV pressure overload. Based on the medical records the patient appears to be approximately 15 kg over his baseline weight. Patient is currently being diuresed.. He was net positive yesterday 385 ml today he is net negative 235ml. Continue to monitor Patient I&O. Monitor patients weight. Qualifiers: Congestive heart failure type: systolic Congestive heart failure chronicity : acute on chronic Qualified Code(s): I50.23 - Acute on chronic systolic ( congestive) heart failure (3) Anemia Current Visit: Yes Status: Acute Acute on chronic amenia requiring blood transfusions. Patient had a positive stool occult. GI has been consulted. Currently being managed by primary service. We recommend continuing the patients plavix at this time. If the patient should require an EGD and the endooscopist prefers to perform the procedure without plavix it can be held and then it should be restarted after the procedure is completed Qualifiers: Anemia type: iron deficiency Iron deficiency anemia type: other iron deficiency Qualified Code(s): D50.8 - Other iron deficiency anemias (4) COPD (chronic obstructive pulmonary disease) Current Visit: Yes Status: Chronic Patient has a known history of COPD. Wears 2-3L of oxygen at home. Currently on 3L of oxygen here. This is being managed by the primary team Qualifiers: COPD type: chronic bronchitis Chronic bronchitis type: simple Qualified Code(s): J41.0 - Simple chronic bronchitis (5) Type 2 diabetes mellitus Current Visit: Yes Status: Chronic This is currently being manage with insulin in the hospital. Most recent A1c is 8.2. This is currently being managed by the primary team Qualifiers: Diabetes mellitus complication status: with hyperglycemia Diabetes mellitus half-way insulin use: with half-way use Qualified Code(s): E11.65 - Type 2 diabetes mellitus with hyperglycemia; Z79.4 - [facility] (current) use of insulin (6) Tobacco abuse Current Visit: No Status: Chronic Patient has a history of smoking but states he has not has any cigarettes for the past couple of weeks. Continue with smoking cessation. (7) DVT prophylaxis Current Visit: Yes Status: Acute Patient has antiembolic stockings ordered. No longer on Heparin. Patient is anemic with a GI bleed. This is currently being managed by the primary service. Discussion w patient/family: The assessment and plan as outlined above was discussed with the patient and/or family members who expressed understanding and agreement. All questions were answered. Thank you for involving us in the care of your patient. Please call with any questions. History of Present Illness Consult date: 08/08/17 Requesting physician: Dionte Jimenez Consult reason: GI bleed on aspirin and plavix Chief complaint: GI Bleed History of present illness: Mr. Ruiz is a 57 year old male that was admitted to the hospital for worsening of his shortness of breath. Patient states that he has been fluid overloaded and has had worsening on his shortness of breath. He usually requires 2L of oxygen at home but for the last 2 weeks has had to be on 3L. Patient states that he has had a cough that has been no productive. He states that since he has been in the hospital and receiving IV lasix his shortness of breath has improved. Patient denies any chest pain or any palpitations. Patient reports a cardiac catheterization in December of this year. There was a stent that had to be placed. He states that he has been on plavix but not taking aspirin. The patient denies cany cardiac symptoms at this time. The patient reports some dark colored stools and has had a drop in his hemoglobin. Cardiology was consulted for the patient being on plavix and the need for EGD for a GI bleed. Past Med Surg Social Fam HX - Past Medical History Medical history: atrial fibrillation, CHF, COPD, coronary artery disease, diabetes, GERD, hyperlipidemia, hypertension, myocardial infarction Psychiatric history: anxiety - Past Surgical History Surgical History: angioplasty/stent, appendectomy - Social History Smoking Status: Former smoker (80 pack year history) Packs per day: 2 Smokeless Tobacco Status: No Alcohol use: none Drug use: none - Family History Sister Adopted: No Family Member Ethnicity: Non- Living Status: Still Living Hx Family Cardiac Disorders: No Hx Family Respiratory Disorders: No Hx Family Cancer: Yes Hx Family GI Disorders: No Hx Family Endocrine Disorder: No (Possib[place]ke thyroid) Hx Family Neuromuscular Disorders: No Hx Family Neurologic Disorders: No Hx Family HEENT Disorders: No Hx Family Autoimmune Disorders: No Brother Living Status: Still Living Hx Family Cardiac Disorders: Yes Father Living Status: Cause of : Pancreatic cancer Hx Family Cancer: Yes Mother Living Status: Hx Family Cardiac Disorders: Yes Hx Family Endocrine Disorder: Yes (diabetes) Medications and Allergies Gabapentin [Neurontin] 600 mg PO TID 12/11/16 [History] Omeprazole [PriLOSEC] 20 mg PO DAILY 12/11/16 [History] HYDROcodone/Acet 7.5/325 mg [Mobile 7.5-325 mg] 1 tab PO Q6H PRN 12/17/16 [ History] Atorvastatin [Lipitor] 20 mg PO HS #30 tablet 12/23/16 [Rx] Clopidogrel [Plavix] 75 mg PO DAILY #30 tablet 12/23/16 [Rx] Nitroglycerin 0.4 mg SL Q5MIN PRN #30 tab.subl 12/23/16 [Rx] Ipratropium/Albuterol Neb [Duoneb] 3 ml IH QIDR #100 inhsol 12/28/16 [Rx] Magnesium Oxide [Mag-Ox] 400 mg PO BID #60 tablet 03/22/17 [Rx] Cholecalciferol (Vitd3)/Vit K2 [D3 + K2 Dots 1,000 Units Tab] 2 each PO DAILY [History] Docusate [Colace] 100 mg PO DAILY 07/31/17 [History] Ferrous Sulfate [Iron] 325 mg PO BID 07/31/17 [History] Insulin ASPART [Novolog Flexpen] 0 unit SQ ACHS 07/31/17 [History] Polyethylene Glycol 3350 [MiraLAX] 17 gm PO DAILY 07/31/17 [History] Bumetanide [Bumex] 1 mg PO DAILY 08/01/17 [History] Gemfibrozil [Lopid] 600 mg PO BID 08/01/17 [History] Metformin HCl [Glucophage] 1,000 mg PO BID 08/01/17 [History] Potassium Chloride [Klor-Con 10] 10 meq PO DAILY 08/01/17 [History] Spironolactone [Aldactone] 25 mg PO DAILY 08/01/17 [History] 3 Allergy/AdvReac Type Severity Reaction Status Date / Time No Known Allergies Allergy Verified 08/01/17 09:44 All Systems Review: A 10-system review of systems was performed and is negative for pertinent findings except as documented above in the HPI. - Cardiovascular Cardiovascular: dyspnea at rest, dyspnea on exertion, leg edema, no chest pain at rest, no chest pain with exertion - Respiratory Respiratory: cough, dyspnea, no hemoptysis - Gastrointestinal Gastrointestinal: melena, no abdominal pain, no hematochezia - Genitourinary Genitourinary: no hematuria Physical Examination Vital Signs, Last 4 Hours Temp Pulse Resp BP Pulse Ox 08/08/17 11:19 16 100 08/08/17 10:51 97.5 F L 99 16 116/76 100 08/08/17 07:45 99.2 F 91 20 108/73 General: Conversant, No Apparent Distress HEENT: Atraumatic, Normocephaly Neck: No JVD, Normal carotid pulses Cardiac: Reg Rate and Rhythm, Normal S1 and S2, No Murmur Lungs: Other (Wheezing bilaterally) Neuro: Alert and responsive, No focal deficits noted Abdomen: Soft, Other (Diffuse mild tenderness) Extremities: No Clubbing, No Cyanosis, Normal Pulses, Other (3+ pitting edema in bilateral lower extremities) Results 08/08/17 07:27 08/08/17 07:27 Lab Results 08/08/17 08/08/17 07:27 07:27 WBC 17.0 H Hgb 6.6 L Hct 22.6 L Plt Count 119 L Sodium 136 Potassium 4.2 Chloride 95 L Carbon Dioxide 32 H BUN 81 H Creatinine 1.24 Glucose 110 H Calcium 9.3 - Imaging and Cardiology Chest Xray: report reviewed Echo: report reviewed Cardiac cath: report reviewed - EKG Interpretation EKG results cardiology: personally reviewed, other (Sinus tachycardia) Consult Discharge Plan - Plan Instructions: Heart Failure (DC), Atrial Flutter (DC), Atrial Fibrillation (DC) , Acute Respiratory Distress Syndrome (DC), Acute Kidney Injury (DC), Acute Kidney Injury (GEN), Diabetes Mellitus Type 2 in Adults (DC), Chronic Obstructive Pulmonary Disease (DC), Anemia (GEN), Pneumonia (DC), Cigarette Smoking and Your Health, Offset Plate Preparation Supervisor (GEN) Additional Instructions: pcp requested Referrals: Tawanda Chi MD [Primary Care Provider] - 08/08/17 10:30 am
--- NOTE | 2017-08-08 14:37 | Internal Med Progress Note ---
<Dionte Jimenez - Last Filed: 08/08/17 14:33> Date of Encounter: 08/08/17 Time of Encounter: 14:33 - Assessment and plan (1) Anemia Current Visit: Yes Status: Acute Assessment and plan: Microcytic anemia 2nd to anemia of chronic disease as well as iron def anemia Positive fecal occult blood test. Hemoglobin decreased to 6.6. One additional unit of RBC ordered. GI consultation patient will undergo EGD today. colonoscopy in 2016 negative for polyps/cancer, showed internal hemmroids egd negative as well in february for any stigmata of bleeding Repeat CBC in afternoon. Qualifiers: Anemia type: iron deficiency Iron deficiency anemia type: other iron deficiency Qualified Code(s): D50.8 - Other iron deficiency anemias (2) Acute kidney injury Current Visit: Yes Status: Acute Assessment and plan: 2nd to diuresis contraction alkalosis improved to 1.24 patient more volume overloaded after albumin and transfusion. Continue patient on Lasix. We will switch to oral diuretics tomorrow. Appreciate nephrology recommendations. continue midodrine Strict I's and O's Avoid nephrotoxins. BMP in am appreciate nephrology recommendations (3) Cirrhosis Current Visit: Yes Status: Suspected Assessment and plan: currently etiology but alcohol may have played a rale as patient admits to drinking 3-4 beers in the past (has not had drink in 2 years). [address]/Abdomen pelvis in 12/2016 showed evidence of ascties and cirrhosis Liver US confirmed finding hepatitis panel negative antismooth muscle antibiody negative Will get GI oupatient follow up. Qualifiers: Hepatic cirrhosis type: unspecified hepatic cirrhosis Ascites presence: with ascites Qualified Code(s): K74.60 - Unspecified cirrhosis of liver (4) Acute on chronic respiratory failure with hypoxemia Current Visit: Yes Status: Resolved Assessment and plan: Secondary to CHF exacerbation, pneumonia. We held diuresis due to development of hypotenstion. on home 3L O2 oxygenating >90% continue to monitor patient more fluid overloaded 2nd to transfusion. Diuresis restarted. (5) Acute on chronic systolic (congestive) heart failure Current Visit: Yes Status: Acute Assessment and plan: Previous echo shows EF of 40% with abnormal septal motion, dilated right ventricle, moderate pulmonary hypertension. New echo pending resuing diuresis strict I/O worsening sob and lower extremity edema patient encouraged to prop up legs on stool diuresis restarted: lasix spironolactone will be restarted tomorrow (6) Coronary artery disease Current Visit: Yes Status: Chronic Assessment and plan: Received stents in Dec 2016. due to anemia aspirin d/c cardiology recommends continuing plavix due to recent SHEYLA placed in LAD in Dec Qualifiers: Coronary Disease-Associated Artery/Lesion type: [place] artery [place] vs. transplanted heart: [place] heart Associated angina: without angina Qualified Code(s): I25.10 - Atherosclerotic heart disease of [place] coronary artery without angina pectoris (7) Diabetes mellitus type 2 in nonobese Current Visit: Yes Status: Chronic Assessment and plan: Controlled. Continue diabetic diet. Continue SS insulin. (8) Leukocytosis Current Visit: Yes Status: Chronic Assessment and plan: acute on chronic; follows with Hematology; Negative for hepatitis Peripheral blood smear negative BCR/ABL negative Follow up outpatient with oncology Qualifiers: Leukocytosis type: unspecified Qualified Code(s): D72.829 - Elevated white blood cell count, unspecified (9) Atrial flutter Current Visit: Yes Status: Acute Assessment and plan: After left heart catheterization in December patient had episode of a flutter Patient was initially started on xarelto this was discontinued due to nosebleeds. Currently regular rate and rhythm Qualifiers: Atrial flutter type: unspecified Qualified Code(s): I48.92 - Unspecified atrial flutter (10) Pneumonia Current Visit: Yes Status: Resolved Assessment and plan: Patient does not report symptoms of coughing, and is using home oxygen at 3 L. pneumonia suspected but less likely. had five days levaquin. resolved. Qualifiers: Pneumonia type: due to unspecified organism Laterality: right Lung location: lower lobe of lung Qualified Code(s): J18.1 - Lobar pneumonia, unspecified organism - Subjective Interval history: Patient states his breathing is better. Denies chest pain, palpitations, abdominal, N/V. - Constitutional Vitals: Temp Pulse Resp BP Pulse Ox 96.9 F L 96 22 116/76 100 08/08/17 11:37 08/08/17 11:37 08/08/17 11:37 08/08/17 11:37 08/08/17 11:37 General appearance: Present: A&O X 3 (facial puffiness noted), answers questions appropriately - Respiratory Respiratory exam: Present: rales (b/l basilar ) - GI/Abdominal GI/Abdominal exam: Present: distended, normal bowel sounds, soft. Absent: tenderness Additional comments: anasarca up to abdomen - Extremities Exam Additional comments: 3+ LE edema - Skin Additional comments: anasarca Internal Medicine: Result - Labs CBC & Chem 7: 08/08/17 07:27 08/08/17 07:27 Labs: Short CBC 08/08/17 Range/Units 07:27 WBC 17.0 H (4.3-11.1) K/mcL Hgb 6.6 L (12.9-16.9) g/dL Hct 22.6 L (37.5-50.1) % Plt Count 119 L (140-400) K/mcL Neutrophils # 13.7 H (1.6-8.9) K/mcL BMP 08/08/17 07:27 Sodium 136 Potassium 4.2 Chloride 95 L Carbon Dioxide 32 H BUN 81 H Creatinine 1.24 Glucose 110 H Calcium 9.3 - ABG Interpretation ABG results: ABG ABG pH 7.45 pH Units (7.32-7.45) 08/01/17 05:05 ABG pCO2 62 mmHg (35-45) H 08/01/17 05:05 ABG pO2 80 mmHg (85-104) L 08/01/17 05:05 ABG O2 Saturation 96 % (95-98) 08/01/17 05:05 PT/INR, D-dimer PT 16.2 Seconds (9.4-12.1) H 08/07/17 04:27 - Impressions Impressions Retroperitoneum Ultrasound 08/05/17 17:00 IMPRESSION: Unremarkable ultrasound of the kidneys. Urinary bladder poorly evaluated due to underdistention. D/ / 08/05/2017 21:07:47 Adam Akers MD / [facility] Interpreting Provider: Adam Akers MD - VTE Documentation of Mechanical Device: Graduated compression elastic hosiery Consult Discharge Plan - Plan Instructions: Heart Failure (DC), Atrial Flutter (DC), Atrial Fibrillation (DC) , Acute Respiratory Distress Syndrome (DC), Acute Kidney Injury (DC), Acute Kidney Injury (GEN), Diabetes Mellitus Type 2 in Adults (DC), Chronic Obstructive Pulmonary Disease (DC), Anemia (GEN), Pneumonia (DC), Cigarette Smoking and Your Health, [employer] Helper (GEN) Additional Instructions: pcp requested Referrals: Tawanda Chi MD [Primary Care Provider] - 08/08/17 10:30 am <KrisJanusz Adeel - Last Filed: 08/08/17 16:03> Date of Encounter: 08/08/17 - Assessment and plan (1) Acute on chronic respiratory failure with hypoxemia Current Visit: Yes Status: Resolved (2) Anemia Current Visit: Yes Status: Acute Qualifiers: Anemia type: iron deficiency Iron deficiency anemia type: chronic blood loss Qualified Code(s): D50.0 - Iron deficiency anemia secondary to blood loss (chronic) (3) Acute kidney injury Current Visit: Yes Status: Acute (4) Acute on chronic systolic (congestive) heart failure Current Visit: Yes Status: Acute (5) Cirrhosis Current Visit: Yes Status: Suspected Qualifiers: Hepatic cirrhosis type: alcoholic cirrhosis Ascites presence: with ascites Qualified Code(s): K70.31 - Alcoholic cirrhosis of liver with ascites (6) Coronary artery disease Current Visit: Yes Status: Chronic Qualifiers: Coronary Disease-Associated Artery/Lesion type: [place] artery [place] vs. transplanted heart: [place] heart Associated angina: without angina Qualified Code(s): I25.10 - Atherosclerotic heart disease of [place] coronary artery without angina pectoris (7) Type 2 diabetes mellitus Current Visit: Yes Status: Chronic Qualifiers: Diabetes mellitus complication status: with hyperglycemia Diabetes mellitus fpc insulin use: with fpc use Qualified Code(s): E11.65 - Type 2 diabetes mellitus with hyperglycemia; Z79.4 - custodial (current) use of insulin - Constitutional Vitals: Temp Pulse Resp BP Pulse Ox 96.9 F L 96 22 116/76 100 08/08/17 11:37 08/08/17 11:37 08/08/17 11:37 08/08/17 11:37 08/08/17 11:37 Internal Medicine: Result - Labs CBC & Chem 7: 08/08/17 07:27 08/08/17 07:27 Labs: Short CBC 08/08/17 Range/Units 07:27 WBC 17.0 H (4.3-11.1) K/mcL Hgb 6.6 L (12.9-16.9) g/dL Hct 22.6 L (37.5-50.1) % Plt Count 119 L (140-400) K/mcL Neutrophils # 13.7 H (1.6-8.9) K/mcL BMP 08/08/17 07:27 Sodium 136 Potassium 4.2 Chloride 95 L Carbon Dioxide 32 H BUN 81 H Creatinine 1.24 Glucose 110 H Calcium 9.3 - ABG Interpretation ABG results: ABG ABG pH 7.45 pH Units (7.32-7.45) 08/01/17 05:05 ABG pCO2 62 mmHg (35-45) H 08/01/17 05:05 ABG pO2 80 mmHg (85-104) L 08/01/17 05:05 ABG O2 Saturation 96 % (95-98) 08/01/17 05:05 PT/INR, D-dimer PT 16.2 Seconds (9.4-12.1) H 08/07/17 04:27 - Attending Attestation I examined this patient and my medical decision-making was reviewed with the Resident Physician on 08/08/17. I agree with the documented findings, disposition and treatment plan as described except to the extent set forth below. Mr Ruiz is currently admitted for multiple issues including exac CHf, volume overload, hepatic disease and anemia presumed due to chronic blood loss. He remains moderate to high risk due to potential for worsening respiratory and renal status. Mr Ruiz is resting at this time. He is much more edematous. Renal function has improved. H/H lower at this time. No overt bleeding but guiac positive. Exam Alert. Comfortable at this time. Mucus membranes dry Heart slightly tachy and irreg Lungs diminished Edematous Abd soft I/P 1. Anasarca 2. Anemia Further diagnoses and plan as above.
[2017-08-08] MEDS ORDERED: Albumin 25% 25gram/100mL 25 GM/100 ML IV.SOLN IVPB SCH (16:00)
[2017-08-08 16:34] LABS: Hematocrit 26.3 % (37.5-50.1); Hemoglobin 7.7 g/dL (12.9-16.9)
--- NOTE | 2017-08-08 17:03 | Event Note ---
Date of Encounter: 08/08/17 Time of Encounter: 16:58 Mr. Ruiz is currently admitted for acute exac CHF followed by [facility]. Renal function has improved but he is profoundly anemic. He just received one unit PRBCs today finishing about 3PM. Appox 4PM he was noted to have a low grade temp as well as tachycardia and hypotension. Repeat vitals show temp of 99.6 with heart rete of 126 and BP 84/ 46. He is somewhat confused and restless. His oxygen sat is 92%. Exam Alert. Restless Mucus membranes moist Heart irreg and tachy Lungs with rhonchi bilaterally Abd distended. Soft. Mild diffuse tenderness but increased in epigastric region. No peritoneal signs at this point. Edema present. Stat labs and cultures ordered. CT abd/pelvis. CXR now. Transfer to ICU for further management.
[2017-08-08] MEDS ORDERED: Vancomycin 1,000 MG in D5% in Water 250 ML IVPB ONE ×2 (17:13→17:52)
[2017-08-08] MEDS ORDERED: *HR* HYDROcodone/Acet 7.5/325 mg TABLET PO PRN (17:52)
[2017-08-08] MEDS ORDERED: Dextrose Gel 15 GM PO PRN ×2 (17:52)
[2017-08-08] MEDS ORDERED: Mag Hydrox/Al Hydrox/Simeth 30 ML UDC PO PRN (17:52)
[2017-08-08] MEDS ORDERED: *HR* Dextrose 50 % in Water (Syg) 50 ML SYRINGE IVP PRN (17:52)
[2017-08-08] MEDS ORDERED: Nitroglycerin 0.4 MG TAB.SUBL SL PRN (17:52)
[2017-08-08] MEDS ORDERED: Naloxone 0.4 MG/ML INJ IVP PRN (17:52)
[2017-08-08] MEDS ORDERED: Acetaminophen 325 MG TABLET PO PRN (17:52)
[2017-08-08] MEDS ORDERED: Albuterol 2.5 MG/3 ML NEBULIZER IH PRN (17:52)
[2017-08-08] MEDS ORDERED: D5% in Water 1,000 ML IVC PRN (17:52)
[2017-08-08] MEDS ORDERED: Levofloxacin 750 MG/150 ML 750 MG/150 ML BAG IVPB SCH ×2 (18:00)
[2017-08-08] MEDS: Pantoprazole 40 MG VIAL IVP SCH (18:32)
[2017-08-08 19:14] LABS: ABG Base Excess 12.9 mEq/L (-2.0 to 3.0); ABG HCO3 39 mEq/L (21-27); ABG Oxygen Saturation 95 % (95-98); ABG PCO2 62 mmHg (35-45); ABG PH 7.41 pH Units (7.32-7.45); ABG PO2 75 mmHg (85-104); ABG TCO2 41 mEq/L (20-26)
[2017-08-08 19:15] LABS: Blood Gas Modality NC
[2017-08-08] MEDS ORDERED: Insulin LISPRO 300 UNITS/3 ML VIAL SQ SCH (21:00)
[2017-08-08] MEDS ORDERED: Insulin DETEMIR 100 UNIT/ML X5UNITS SQ SCH (21:00)
[2017-08-08] MEDS: Piperacillin/Tazobactam 3.375 GM in D5% in Water (Mini-Bag+) 100 ML IVPB SCH (23:44)
[2017-08-09] MEDS ORDERED: Piperacillin/Tazobactam 3.375 GM in D5% in Water (Mini-Bag+) 100 ML IVPB SCH
[2017-08-09 04:33] LABS: Basophils % 0.2 %; Eosinophils # 0.1 K/mcL (0.0-0.6); Eosinophils % 0.3 %; Hematocrit 24.4 % (37.5-50.1); Hemoglobin 7.1 g/dL (12.9-16.9); Immature Granulocytes % 0.6 % (0-4); Lymphocytes # 1.1 K/mcL (0.6-4.6); Lymphocytes % 5.8 %; Mean Corpuscular HGB Conc 29.1 g/dL (31.6-35.5); Mean Corpuscular Hemoglobin 24.1 pg (28.0-33.3); Mean Corpuscular Volume 82.7 fL (83.0-100.0); Monocytes # 1.6 K/mcL (0.0-1.3); Monocytes % 8.3 %; Platelet Count 139 K/mcL (140-400); Red Blood Count 2.95 M/mcL (4.19-5.50); Red Cell Distribution Width 24.6 % (11.5-14.5); Segmented Neutrophils % 84.8 %
[2017-08-09 04:40] LABS: INR 1.5; Prothrombin Time 16.5 Seconds (9.4-12.1)
[2017-08-09 04:45] LABS: Neutrophils # 16.5 K/mcL (1.6-8.9)
[2017-08-09 04:56] LABS: Alanine Aminotransferase 12 Units/L (0-55); Albumin 3.3 g/dL (3.5-5.0); Albumin/Globulin Ratio 1.2 (1.1-2.2); Alkaline Phosphatase 72 Units/L (38-126); Aspartate Amino Transferase 18 Units/L (5-34); BUN/Creatinine Ratio 61 (6-26); Bilirubin,Total 1.4 mg/dL (0.2-1.2); Blood Urea Nitrogen 66 mg/dL (8-26); Calcium 9.2 mg/dL (8.6-10.8); Carbon Dioxide 33 mEq/L (19-29); Chloride 95 mEq/L (98-109); Globulin 2.7 g/dL (2.4-3.5); Glucose 94 mg/dL (70-99); Osmolality,Calculated 305 (280-300); Potassium 3.6 mEq/L (3.5-4.5); Sodium 138 mEq/L (136-145); eGFR For African Americans > 60 (> 60); eGFR For Non-African Americans > 60 (> 60)
[2017-08-09 05:16] LABS: Anisocytosis 2+ (Not Present); Platelet Estimate Normal (Normal); Poikilocytosis 2+ (Not Present); Polychromasia 1+ (Not Present)
[2017-08-09] MEDS: Ipratropium/Albuterol Neb 3 ML IH SCH ×3 (05:23→16:25)
[2017-08-09] MEDS: GuaiFENesin Liq 200 MG/10 ML UDC PO SCH ×3 (05:58→17:21)
[2017-08-09] MEDS: Pantoprazole 40 MG VIAL IVP SCH ×2 (05:58→17:21)
--- NOTE | 2017-08-09 06:35 | Pulmonology Consult Note ---
<BernadetteKameronAyo W - Last Filed: 08/09/17 11:14> Date of Encounter: 08/09/17 Medications and Allergies Gabapentin [Neurontin] 600 mg PO TID 12/11/16 [History] Omeprazole [PriLOSEC] 20 mg PO DAILY 12/11/16 [History] HYDROcodone/Acet 7.5/325 mg [[place] 7.5-325 mg] 1 tab PO Q6H PRN 12/17/16 [ History] Atorvastatin [Lipitor] 20 mg PO HS #30 tablet 12/23/16 [Rx] Clopidogrel [Plavix] 75 mg PO DAILY #30 tablet 12/23/16 [Rx] Nitroglycerin 0.4 mg SL Q5MIN PRN #30 tab.subl 12/23/16 [Rx] Ipratropium/Albuterol Neb [Duoneb] 3 ml IH QIDR #100 inhsol 12/28/16 [Rx] Magnesium Oxide [Mag-Ox] 400 mg PO BID #60 tablet 03/22/17 [Rx] Cholecalciferol (Vitd3)/Vit K2 [D3 + K2 Dots 1,000 Units Tab] 2 each PO DAILY [History] Docusate [Colace] 100 mg PO DAILY 07/31/17 [History] Ferrous Sulfate [Iron] 325 mg PO BID 07/31/17 [History] Insulin ASPART [Novolog Flexpen] 0 unit SQ ACHS 07/31/17 [History] Polyethylene Glycol 3350 [MiraLAX] 17 gm PO DAILY 07/31/17 [History] Bumetanide [Bumex] 1 mg PO DAILY 08/01/17 [History] Gemfibrozil [Lopid] 600 mg PO BID 08/01/17 [History] Metformin HCl [Glucophage] 1,000 mg PO BID 08/01/17 [History] Potassium Chloride [Klor-Con 10] 10 meq PO DAILY 08/01/17 [History] Spironolactone [Aldactone] 25 mg PO DAILY 08/01/17 [History] 3 Allergy/AdvReac Type Severity Reaction Status Date / Time No Known Allergies Allergy Verified 08/01/17 09:44 All Systems: A 10-system review of systems was performed and is negative for pertinent findings except as documented above in the HPI. Physical Examination Vital Signs: Vital Signs, Last 4 Hours Temp Pulse Resp BP Pulse Ox 08/09/17 08:00 92 20 108/70 97 08/09/17 07:15 97.8 F 08/09/17 06:00 90 20 110/70 97 Results - Laboratory Findings CBC and BMP: 08/09/17 04:00 08/09/17 04:00 ABG ABG pH 7.41 pH Units (7.32-7.45) 08/08/17 18:30 ABG pCO2 62 mmHg (35-45) H 08/08/17 18:30 ABG pO2 75 mmHg (85-104) L 08/08/17 18:30 ABG O2 Saturation 95 % (95-98) 08/08/17 18:30 PT/INR, D-dimer PT 16.5 Seconds (9.4-12.1) H 08/09/17 04:00 Abnormal lab findings: Abnormal lab results WBC 19.5 K/mcL (4.3-11.1) H 08/09/17 04:00 RBC 2.95 M/mcL (4.19-5.50) L 08/09/17 04:00 Hgb 7.1 g/dL (12.9-16.9) L 08/09/17 04:00 Hct 24.4 % (37.5-50.1) L 08/09/17 04:00 MCV 82.7 fL (83.0-100.0) L 08/09/17 04:00 MCH 24.1 pg (28.0-33.3) L 08/09/17 04:00 MCHC 29.1 g/dL (31.6-35.5) L 08/09/17 04:00 RDW 24.6 % (11.5-14.5) H 08/09/17 04:00 Plt Count 139 K/mcL (140-400) L 08/09/17 04:00 Neutrophils # 16.5 K/mcL (1.6-8.9) H 08/09/17 04:00 Monocytes # 1.6 K/mcL (0.0-1.3) H 08/09/17 04:00 Nucleated RBCs/100 WBC 0.1 /100 WBC (0) H 08/01/17 01:12 Large Platelets Present (Not Present) A 08/06/17 04:58 Immature Plt Fraction 10.4 % (1.1-6.1) H 08/06/17 08:04 Polychromasia 1+ (Not Present) A 08/09/17 04:00 Hypochromasia Present (Not Present) A 08/08/17 07:27 Poikilocytosis 2+ (Not Present) A 08/09/17 04:00 Anisocytosis 2+ (Not Present) A 08/09/17 04:00 Microcytosis Present (Not Present) A 08/08/17 07:27 Macrocytosis Present (Not Present) A 08/07/17 04:27 Target Cells 1+ (Not Present) A 08/07/17 04:27 Schistocytes 1+ (Not Present) A 08/06/17 04:58 PT 16.5 Seconds (9.4-12.1) H 08/09/17 04:00 ABG pCO2 62 mmHg (35-45) H 08/08/17 18:30 ABG pO2 75 mmHg (85-104) L 08/08/17 18:30 ABG HCO3 39 mEq/L (21-27) H 08/08/17 18:30 ABG Total CO2 41 mEq/L (20-26) H 08/08/17 18:30 ABG Base Excess 12.9 mEq/L (-2.0 to 3.0) H 08/08/17 18:30 Chloride 95 mEq/L (98-109) L 08/09/17 04:00 Carbon Dioxide 33 mEq/L (19-29) H 08/09/17 04:00 BUN 66 mg/dL (8-26) H 08/09/17 04:00 BUN/Creatinine Ratio 61 (6-26) H 08/09/17 04:00 Hemoglobin A1c 8.2 % (-5.6) H 07/31/17 18:53 Calculated Osmolality 305 (280-300) H 08/09/17 04:00 Uric Acid 7.5 mg/dL (3.5-7.2) H 08/05/17 15:35 Total Bilirubin 1.4 mg/dL (0.2-1.2) H 08/09/17 04:00 Troponin I 0.06 ng/mL (0-0.03) H* 08/01/17 07:01 B-Natriuretic Peptide 1264 pg/mL (0-100) H 08/05/17 16:17 Albumin 3.3 g/dL (3.5-5.0) L 08/09/17 04:00 Urine Protein 30 mg/dL (Neg-Trace) H 08/05/17 22:20 Urine Ketones Trace mg/dL (Negative) H 08/05/17 22:20 Urine Bilirubin Small (Negative) H 08/05/17 22:20 Ur Leukocyte Esterase Small (Negative) H 08/05/17 22:20 Ur Squamous Epith Cells Many per lpf (None-Few) H 08/05/17 22:20 Hyaline Casts Moderate per lpf (None-Few) H 08/05/17 22:20 Ur Culture Indicated? YES (NO) A 08/05/17 22:20 Stool Occult Blood Positive (Negative) A 08/07/17 12:00 Vancomycin Trough 6.0 mcg/mL (10-20) L 08/05/17 15:35 - Microbiology Findings Microbiology Findings: Microbiology, Last 48 Hours 08/09/17 01:30 Sputum Culture - Preliminary Sputum 08/05/17 22:20 Urine Culture - Final Urine,Clean Catch No pathogens isolated. - Clinical Findings Intake & Output: Intake & Output 08/08/17 08/09/17 08/09/17 23:59 07:59 15:59 Intake Total 150 / 150 600 / 600 Output Total 275 / 275 700 / 700 250 / 250 Balance -125 / -125 -100 / -100 -250 / -250 Weight 89.9 kg Consult Discharge Plan - Plan Instructions: Heart Failure (DC), Atrial Flutter (DC), Atrial Fibrillation (DC) , Acute Respiratory Distress Syndrome (DC), Acute Kidney Injury (DC), Acute Kidney Injury (GEN), Diabetes Mellitus Type 2 in Adults (DC), Chronic Obstructive Pulmonary Disease (DC), Anemia (GEN), Pneumonia (DC), Cigarette Smoking and Your Health, Associate Brand Manager (GEN) Additional Instructions: pcp requested Referrals: Tawanda Chi MD [Primary Care Provider] - 08/08/17 10:30 am - Attending Attestation I examined this patient and my medical decision-making was reviewed with the Resident Physician. I agree with the documented findings, disposition and treatment plan as described except to the extent set forth below. We independently had [id number] contact with the patient Patient seen and examined at bedside Labs, radiology, chart personally reviewed. Management was reviewed during multidisciplinary critical care rounds. Neuropsych: Awake and alert follows commands no neuro deficits on exam. Pulm: Acute on chronic respiratory failure improved to baseline. Wean fio2 to keep sat >88% Cards: Borderline low BP at baseline stable today. Possibly related to kidney dysfunction or cirrhsosi. Cont midorine. FEN-GI: ADAT, Chronic anemia possible GI source. GI consulted plan to proceed with EGD. Recently diagnosed with Cirrhosis ?EtOH use. Will need outpatient f/ u. Cont Spironolactone Renal: ASIM resolving. Cont Albumin and Lasix. Nephrology following ID: ON Abx for possible sepsis with plan to deescalate. Cultures have been obtained Heme/Onc: Chronic anemia stable h/H after transfusion transfusion for hgb <7. Likely acute decompensation yesterday related to transfusion reaction. BLood bank notified. Endo: Glucose Monitored Integ/MSK: Skin Care per routine ICU Nursing Protocol to prevent ulcers. Lines: All lines examined without evidence of infection Dispo: Med/Tele for ongoing care CODE: Full Code. <Matt Tarangous Denis - Last Filed: 08/09/17 15:07> Date of Encounter: 08/09/17 Time of Encounter: 06:33 Assessment and Plan (1) Transfusion reaction Current Visit: Yes Status: Acute Acute Transfusion Reaction VS sepsis Received 1 unit pRBC yesterday at 15:00 and one hour later noted to have a low grade temperature aas well as tachycardia and hypotension. He became confused and restless. Ox sat was 92%. Christine cultures are pending Patient received vancomycin, levaquin, and zosyn yesterday. Discontinued everything except Zosyn. Will continue for 24hours. Discussed patient case with blood bank. They are unable to complete transfusion reaction protocol because they need the remains of the bag of PRBCs that was transfused yesterday to do cultures and further testing. Recommend putting in a transfusion reaction order and they will complete what they can for his records. CXR - chronic interstitial lung disease. No pleural effusion seen. Transferred to [facility] and discussed case with Dr. Arora (2) Anemia Current Visit: Yes Status: Acute Microcytic anemia 2nd to anemia of chronic disease as well as iron deficiency anemia Patient received one unit of pRBC yesterday around 15:00 FOBT positive on 08/07 - GI will perform EGD when patient more stable Qualifiers: Anemia type: iron deficiency Iron deficiency anemia type: chronic blood loss Qualified Code(s): D50.0 - Iron deficiency anemia secondary to blood loss (chronic) (3) Acute kidney injury Current Visit: Yes Status: Acute nephrology to start patient on diuresis again today orally yesterday received 1PRBC - Blood transfusion FLexbumin 25 gm in 100 ml @ 60mls/hr IVPB Q8H last given 08/08/2017 00:21 Cr 1.09 improved from yesterday 1.24 BUN 81 -> 66 Total bilirubin 1.4 Albumin 3.3 08/05 - retroperitoneal US that was negative Refer to nephrology note dated for today - Continue IV Lasix BID. Retart Spironolactone 25mg BID. Continue midodrine. Strict I/O monitoring. - At discharge, hold BUmex and continue with oral lasix. (4) Cirrhosis Current Visit: Yes Status: Suspected Current etiology may be alcohol CT/ Abdomen small pleural effusions, body wall anasarca, and abominal ascites, compatible with fluid overload, either due to renal, cardiac, or hepatic insufficiency. No hydronephrosis noted. Amount of ascities decreased since 2016 Scattered opacities at the lung bases, either atelectasis or pneumonia Liver US confirmed finding hepatitis panel negative JAVON and Smooth Muscle AB titer negative Retroperitoneal US - Unremarkable US of kidneys. PT 16.5 with baseline PT of 14.6 in Dec 2016 INR 1.5 AST/ALT normal Ammonia 20 on 08/09 Total bilirubin 1.4 incrased from 0.8 on 08/05 albumin 3.3 improved from 2.6 on 08/05 Platelets 139 imprvoed from 120 on 08/05 GI on board - will monitor LFTs. Platelets and albumin low. F/u outpatient Qualifiers: Hepatic cirrhosis type: unspecified hepatic cirrhosis Ascites presence: with ascites Qualified Code(s): K74.60 - Unspecified cirrhosis of liver (5) Acute on chronic respiratory failure with hypoxemia Current Visit: Yes Status: Resolved Secondary to CHF exacerbation Last diuresis on 08/08 @ 0:22 Home 3L O2 >90% continue to monitor CXR on 08/08 - unchanged chest. Chronic interstitial lung disease. no pleural effusion. (6) Acute systolic CHF (congestive heart failure) Current Visit: No Status: Acute Previous echo shows EF of 40% with abnormal septal motion, dilatered right ventricle, moderate pulmonary HTN. New echo pending diuresis with lasix and albumin Strict I/O (7) Diabetes mellitus type 2 in nonobese Current Visit: Yes Status: Chronic Controlled. Continue diabetic diet. Continue SS insulin (8) Coronary artery disease Current Visit: Yes Status: Chronic Stents in 2017. Continue Plavix and statin and asa Qualifiers: Coronary Disease-Associated Artery/Lesion type: [place] artery [place] vs. transplanted heart: [place]q heart Associated angina: without angina Qualified Code(s): I25.10 - Atherosclerotic heart disease of [place] coronary artery without angina pectoris (9) Leukocytosis Current Visit: No Status: Chronic Acute on chronic; follows with hematology negative for hepatitis peripheral blood smear negative BCR/ABL negative Follow up with outpatient oncology Qualifiers: Leukocytosis type: unspecified Qualified Code(s): D72.829 - Elevated white blood cell count, unspecified (10) Pneumonia Current Visit: Yes Status: Resolved Patient does not report symptoms of coughing, and is using home oxygen 3L Pneumonia suspected but less likely Had 5 days of levaquin Qualifiers: Pneumonia type: due to unspecified organism Laterality: right Lung location: lower lobe of lung Qualified Code(s): J18.1 - Lobar pneumonia, unspecified organism (11) Atrial flutter Current Visit: Yes Status: Acute After left heart catheterizationin December patient had episode of a flutter Patient was initially started on xarelto this was discontinued due to nosebleeds Currently regular rate and rhythm Qualifiers: Atrial flutter type: unspecified Qualified Code(s): I48.92 - Unspecified atrial flutter History of Present Illness Consult date: 08/09/17 Reason for consult: other (hemodynamic instability and febrile s/p PRBC transfusion) Chief complaint: transfusion reaction vs sepsis History of present illness: Pt is a 57M MHx CHF, HTN, HLD, DM, interstitial lung disease, COPD, and cardiomyopathy trasnferred to the ICU yesterday evening after experiencing a fever, hypotension, and tachycardia s/p 1 hour after pRBC transfusion. Past Med Surg Social Fam HX - Past Medical History Medical history: atrial fibrillation, CHF, COPD, coronary artery disease, diabetes, GERD, hyperlipidemia, hypertension, myocardial infarction Psychiatric history: anxiety - Past Surgical History Surgical History: angioplasty/stent, appendectomy - Social History Smoking Status: Former smoker (80 pack year history) Packs per day: 2 Smokeless Tobacco Status: No Alcohol use: none Drug use: none - Family History Sister Adopted: No Family Member Ethnicity: Non- Living Status: Still Living Hx Family Cardiac Disorders: No Hx Family Respiratory Disorders: No Hx Family Cancer: Yes Hx Family GI Disorders: No Hx Family Endocrine Disorder: No ([place] thyroid) Hx Family Neuromuscular Disorders: No Hx Family Neurologic Disorders: No Hx Family HEENT Disorders: No Hx Family Autoimmune Disorders: No Brother Living Status: Still Living Hx Family Cardiac Disorders: Yes Father Living Status: Cause of : Pancreatic cancer Hx Family Cancer: Yes Mother Living Status: Hx Family Cardiac Disorders: Yes Hx Family Endocrine Disorder: Yes (diabetes) All Systems: A 10-system review of systems was performed and is negative for pertinent findings except as documented above in the HPI. - Constitutional Constitutional: as per HPI, fever(s) - EENT Eyes: as per HPI Ears: as per HPI Nose, mouth and throat: as per HPI - Cardiovascular Cardiovascular: no chest pain, no diaphoresis, no dyspnea - Respiratory Respiratory: cough (chronic and productive) - Gastrointestinal Gastrointestinal: diarrhea, no abdominal pain - Genitourinary Genitourinary: no flank pain - Integumentary Integumentary: as per HPI - Neurological Neurological: as per HPI - Psychiatric Psychiatric: as per HPI - Endocrine Endocrine: as per HPI Physical Examination Vital Signs: Vital Signs, Last 4 Hours Temp Pulse Resp BP Pulse Ox 08/09/17 06:00 90 20 110/70 97 08/09/17 05:23 20 97 08/09/17 04:45 97.9 F 08/09/17 04:00 97 18 111/95 97 08/09/17 03:00 96 18 111/82 97 General appearance: no acute distress, alert Eyes: nonicteric ENT: oropharynx dry Neck: supple, no lymphadenopathy Effort: normal Inspection: normal Auscultation: bilateral: clear Cardiovascular: regular rate and rhythm Gastrointestinal: normoactive bowel sounds, non-tender Integumentary: other (diffuse areas of ecchymosis that appear constitent with patient on blood thinner) Extremities: no cyanosis, edema (2+ bileteral) Musculoskeletal: no deformities normal mental status, non-focal exam mood appropriate, affect normal Results - Laboratory Findings CBC and BMP: 08/09/17 04:00 08/09/17 04:00 ABG ABG pH 7.41 pH Units (7.32-7.45) 08/08/17 18:30 ABG pCO2 62 mmHg (35-45) H 08/08/17 18:30 ABG pO2 75 mmHg (85-104) L 08/08/17 18:30 ABG O2 Saturation 95 % (95-98) 08/08/17 18:30 PT/INR, D-dimer PT 16.5 Seconds (9.4-12.1) H 08/09/17 04:00 Abnormal lab findings: Abnormal lab results WBC 19.5 K/mcL (4.3-11.1) H 08/09/17 04:00 RBC 2.95 M/mcL (4.19-5.50) L 08/09/17 04:00 Hgb 7.1 g/dL (12.9-16.9) L 08/09/17 04:00 Hct 24.4 % (37.5-50.1) L 08/09/17 04:00 MCV 82.7 fL (83.0-100.0) L 08/09/17 04:00 MCH 24.1 pg (28.0-33.3) L 08/09/17 04:00 MCHC 29.1 g/dL (31.6-35.5) L 08/09/17 04:00 RDW 24.6 % (11.5-14.5) H 08/09/17 04:00 Plt Count 139 K/mcL (140-400) L 08/09/17 04:00 Neutrophils # 16.5 K/mcL (1.6-8.9) H 08/09/17 04:00 Monocytes # 1.6 K/mcL (0.0-1.3) H 08/09/17 04:00 Nucleated RBCs/100 WBC 0.1 /100 WBC (0) H 08/01/17 01:12 Large Platelets Present (Not Present) A 08/06/17 04:58 Immature Plt Fraction 10.4 % (1.1-6.1) H 08/06/17 08:04 Polychromasia 1+ (Not Present) A 08/09/17 04:00 Hypochromasia Present (Not Present) A 08/08/17 07:27 Poikilocytosis 2+ (Not Present) A 08/09/17 04:00 Anisocytosis 2+ (Not Present) A 08/09/17 04:00 Microcytosis Present (Not Present) A 08/08/17 07:27 Macrocytosis Present (Not Present) A 08/07/17 04:27 Target Cells 1+ (Not Present) A 08/07/17 04:27 Schistocytes 1+ (Not Present) A 08/06/17 04:58 PT 16.5 Seconds (9.4-12.1) H 08/09/17 04:00 ABG pCO2 62 mmHg (35-45) H 08/08/17 18:30 ABG pO2 75 mmHg (85-104) L 08/08/17 18:30 ABG HCO3 39 mEq/L (21-27) H 08/08/17 18:30 ABG Total CO2 41 mEq/L (20-26) H 08/08/17 18:30 ABG Base Excess 12.9 mEq/L (-2.0 to 3.0) H 08/08/17 18:30 Chloride 95 mEq/L (98-109) L 08/09/17 04:00 Carbon Dioxide 33 mEq/L (19-29) H 08/09/17 04:00 BUN 66 mg/dL (8-26) H 08/09/17 04:00 BUN/Creatinine Ratio 61 (6-26) H 08/09/17 04:00 POC Glucose 133 (58-89) H 08/08/17 19:43 Hemoglobin A1c 8.2 % (-5.6) H 07/31/17 18:53 Calculated Osmolality 305 (280-300) H 08/09/17 04:00 Uric Acid 7.5 mg/dL (3.5-7.2) H 08/05/17 15:35 Total Bilirubin 1.4 mg/dL (0.2-1.2) H 08/09/17 04:00 Troponin I 0.06 ng/mL (0-0.03) H* 08/01/17 07:01 B-Natriuretic Peptide 1264 pg/mL (0-100) H 08/05/17 16:17 Albumin 3.3 g/dL (3.5-5.0) L 08/09/17 04:00 Urine Protein 30 mg/dL (Neg-Trace) H 08/05/17 22:20 Urine Ketones Trace mg/dL (Negative) H 08/05/17 22:20 Urine Bilirubin Small (Negative) H 08/05/17 22:20 Ur Leukocyte Esterase Small (Negative) H 08/05/17 22:20 Ur Squamous Epith Cells Many per lpf (None-Few) H 08/05/17 22:20 Hyaline Casts Moderate per lpf (None-Few) H 08/05/17 22:20 Ur Culture Indicated? YES (NO) A 08/05/17 22:20 Stool Occult Blood Positive (Negative) A 08/07/17 12:00 Vancomycin Trough 6.0 mcg/mL (10-20) L 08/05/17 15:35 - Microbiology Findings Microbiology Findings: Microbiology, Last 48 Hours 08/09/17 01:30 Sputum Culture - Preliminary Sputum 08/05/17 22:20 Urine Culture - Final Urine,Clean Catch No pathogens isolated. - Clinical Findings Intake & Output: Intake & Output 08/08/17 08/08/17 08/09/17 15:59 23:59 07:59 Intake Total 540 / 540 150 / 150 600 / 600 Output Total 1500 / 1500 275 / 275 400 / 400 Balance -960 / -960 -125 / -125 200 / 200 Weight 89.9 kg
[2017-08-09] MEDS: Gabapentin 300 MG CAPSULE PO SCH ×3 (08:19→21:08)
[2017-08-09] MEDS: Piperacillin/Tazobactam 3.375 GM in D5% in Water (Mini-Bag+) 100 ML IVPB SCH ×2 (08:20→17:21)
[2017-08-09] MEDS: Insulin LISPRO 300 UNITS/3 ML VIAL SQ SCH ×4 (08:26→21:07)
--- NOTE | 2017-08-09 08:32 | Nephrology Progress Note ---
Date of Encounter: 08/09/17 Time of Encounter: 08:27 - Assessment and Plan (1) Acute kidney injury Current Visit: No Status: Acute 57-year-old male admitted for CHF exacerbation and acute on chronic respiratory failure. Baseline creatinine 1.0 and GFR greater than 60. Patient was undergoing diuresis in the setting of volume overload and developed acute kidney injury. IV diuresis was discontinued 2 days prior to this consult and the patient was provided normal saline IV without response. Acute kidney injury continued to worsen with a current creatinine of 2.10 and GFR of 32, BUN elevated from 27-46. -Supporting history: Patient has a known history of systolic heart failure with ejection fraction of 40% currently undergoing treatment for CHF exacerbation, known type II diabetic with most recent hemoglobin A1c of 7.7 with current glucose levels around 200. new diagnosis of liver cirrhosis with a liver ultrasound cirrhotic morphology of the liver with trace perihepatic ascites. 08/08: Creatinine improving currently 1.24, GFR greater than 60. Mr. Ruiz continues to receive IV albumin 25 g every 8 hours and IV Lasix 40 mg IV 3 times a day. Plan to continue IV diuresis for 1 more day and plan to switch to oral diuretics tomorrow. We will likely hold Bumex at the time of discharge and discharge with oral Lasix. Metabolic alkalosis improving after receiving Acetazolamide 1 dose with current bicarbonate level 32. We will monitor bicarbonate level with no further Acetazolamide at this time. If his bicarbonate continues to elevate while receiving IV Lasix it may be necessary to provide another dose. - Patient does have elevated BUN in the setting of improving renal function with acute anemia which is concerning for acute blood loss anemia. With the setting of liver failure and current drowsiness and occasional hallucinations he may be encephalopathic and recommend rechecking ammonia level. 08/09: Creatinine 1.09, GFR greater than 60, BUN of 66 down from 81 yesterday. Renal function improving appropriately. Patient was transferred to the ICU with fevers, hypotension and tachycardia. Blood pressure stable currently. We will plan see restart patient's spironolactone at 25 mg twice a day, 40 mg Lasix twice a day, stop albumin. - Urine output log is 1775 for 24-hour yesterday with a -1085 fluid balance Plan: - Discontinue albumin. - Continue IV Lasix twice a day. - Plan to restart spironolactone 25 mg twice a day - Tolerating Midodrine 5mg as scheduled. - Monitor bicarbonate level if continues to increase he may require another dose of Acetazolamide - Strict intake and output monitoring, standing daily weights - Avoid nephrotoxic medication and renally dose antibiotics - At time of discharge it would be recommended to hold Bumex and continue with oral Lasix. (2) Type 2 diabetes mellitus Current Visit: Yes Status: Chronic Patient is a known type II diabetic, current glucoses have been around 200 withan A1C of 7.7. Plan: - Management per primary team - Recommend tighter glucose control for renal benefit. Qualifiers: Diabetes mellitus complication status: with hyperglycemia Diabetes mellitus long-term insulin use: with long-term use Qualified Code(s): E11.65 - Type 2 diabetes mellitus with hyperglycemia; Z79.4 - intermediate frame tender (current) use of insulin (3) Anemia Current Visit: Yes Status: Acute Hemoglobin 6.6 down from 7.6 yesterday after receiving 1 unit PRBCs. Review of patient's chart demonstrates chronic microcytic anemia but with current drop in hemoglobin and hematocrit this is likely acute blood loss anemia. Stool guaiac was positive yesterday. Supporting factors include recent hospitalization with intubation increases risk for stress ulcer formation. He also has liver failure with ascites and may have esophageal varices and may be leaking. This was discussed with the primary team and recommend consult to gastroenterology. - Recommend gastroenterology involvement - Recommend PRBC transfusion discussed with primary team. Qualifiers: Anemia type: iron deficiency Iron deficiency anemia type: chronic blood loss Qualified Code(s): D50.0 - Iron deficiency anemia secondary to blood loss (chronic) Subjective Principal diagnosis: ASIM Interval history: Mr. Ruiz 57-year-old male has been seen and evaluated patient bedside today in the ICU. His is present during our discussion. She is feeling more awake and less groggy today. He denies any abdominal pains, shortness of breath , chest pain or palpitations, nausea vomiting or diarrhea. His said she was concerned regarding his fevers yesterday but he is doing much better today. After further discussion with the patient's it is understood that he was taking spironolactone 25 mg twice a day and not once a day. Objective - Vital Signs Vital signs: Vital Signs Temp Pulse Resp BP Pulse Ox 08/09/17 08:00 92 20 108/70 97 08/09/17 07:15 97.8 F 08/09/17 06:00 90 20 110/70 97 08/09/17 05:23 20 97 08/09/17 04:45 97.9 F 08/09/17 04:00 97 18 111/95 97 08/09/17 03:00 96 18 111/82 97 08/09/17 02:00 99 18 121/69 97 08/09/17 01:00 91 16 99/71 97 08/09/17 00:02 97.8 F 08/08/17 23:25 16 97 08/08/17 23:00 98 13 102/70 100 08/08/17 22:00 108 15 110/77 100 08/08/17 21:00 101 15 99/61 100 08/08/17 20:00 98 22 91 08/08/17 19:45 98.2 F 08/08/17 19:00 105 22 104/73 95 08/08/17 18:02 97.2 F L 104 20 96/66 95 08/08/17 17:14 112 24 93/68 08/08/17 16:41 99.6 F 118 24 84/66 08/08/17 16:32 26 88 08/08/17 16:02 100.6 F H 126 26 97/71 88 08/08/17 11:37 96.9 F L 96 22 116/76 100 08/08/17 11:19 16 100 08/08/17 11:06 98.3 F 115 16 120/84 91 08/08/17 10:51 97.5 F L 99 16 116/76 100 Intake and Output 08/08/17 08/09/17 08/09/17 23:59 07:59 15:59 Intake Total 150 / 150 600 / 600 Output Total 275 / 275 700 / 700 Balance -125 / -125 -100 / -100 Intake: IV Fluids 150 / 150 100 / 100 Levaquin Premix 750mg/150 mL 150 / 150 750 mg In 150 ml @ 100 mls/hr IVPB Q24H [facility] Rx#:[id number] Zosyn 3.375 GM In Dextrose 5% ( 100 / 100 Minibag+) 100 ML 100 ML @ 25 mls/hr IVPB Q8HR [facility] Rx#: [id number] Oral 500 / 500 Output: Urine 275 / 275 700 / 700 Other: Stool Size Moderate Stool Consistency loose Stool Color Black # Bowel Movements 1 Weight 89.9 kg Blood Glucose* 133 Patient Weight 08/09/17 23:59 Weight 89.9 kg - General Appearance Exam: General: Patient awake, oriented 3, interactive, in no acute distress HEENT: Normocephalic, atraumatic, pupils equal reactive to light, oral mucosa moist, neck supple trachea midline no palpable lymphadenopathy, no thyromegaly. Chest: Symmetric bilateral correlating with respiratory effort, effort nonlabored. Cardiac: Regular rate and rhythm, positive S1 and S2. no bruits appreciated bilateral carotids, Radial pulses 2+ bilateral, posterior tibial and dorsal pedal pulses 2+ bilateral. Respiratory: Diffuse rhonchi and expiratory wheeze. Abdomen: Soft, nontender, positive bowel sounds, positive fluid wave. Extremities: Symmetric bilateral, bilateral lower extremities with 3+ pitting and near weeping edema. Neurologic: No focal deficits appreciated on examination. Face symmetric, muscle strength symmetric bilateral upper and lower extremities. - Lab 08/09/17 04:00 08/09/17 04:00 Most recent lab results ABG pH 7.41 pH Units (7.32-7.45) 08/08/17 18:30 ABG pCO2 62 mmHg (35-45) H 08/08/17 18:30 ABG pO2 75 mmHg (85-104) L 08/08/17 18:30 ABG HCO3 39 mEq/L (21-27) H 08/08/17 18:30 ABG O2 Saturation 95 % (95-98) 08/08/17 18:30 Calcium 9.2 mg/dL (8.6-10.8) 08/09/17 04:00 Urine Creatinine 177 mg/dL 08/05/17 22:20 Urine Sodium < 20.0 mEq/L 08/05/17 22:20 - VTE Documentation of Mechanical Device: Graduated compression elastic hosiery Consult Discharge Plan - Plan Instructions: Heart Failure (DC), Atrial Flutter (DC), Atrial Fibrillation (DC) , Acute Respiratory Distress Syndrome (DC), Acute Kidney Injury (DC), Acute Kidney Injury (GEN), Diabetes Mellitus Type 2 in Adults (DC), Chronic Obstructive Pulmonary Disease (DC), Anemia (GEN), Pneumonia (DC), Cigarette Smoking and Your Health, Residential [place] (GEN) Additional Instructions: pcp requested Referrals: Tawanda Chi MD [Primary Care Provider] - 08/08/17 10:30 am
[2017-08-09] MEDS: Budesonide/Formoterol 160/4.5 MDI IH SCH (09:39)
[2017-08-09] MEDS ORDERED: Spironolactone 25 MG TABLET PO SCH (09:45)
[2017-08-09] MEDS ORDERED: Furosemide 40 MG/4 ML VIAL IVP SCH (09:45)
--- NOTE | 2017-08-09 13:37 | Cardiology Progress Note ---
Date of Encounter: 08/09/17 Time of Encounter: 13:33 Assessment and Plan (1) CAD (coronary artery disease) Current Visit: Yes Status: Acute Patient has a known history of CAD. Most recent cardiac catheterization in December of 2016 requiring SHEYLA placement in the LAD. Patient states that he has been taking his plavix but not aspirin. Patient denies any chest pain or palpitations at this time. We recommend continuing the patients plavix due to the recent stent placement and it being a long proximal LAD SHEYLA. If the patient should require an EGD and the endooscopist prefers to perform the procedure without plavix it can be held and then it should be restarted after the procedure is completed. We will sign off from the case at this time. Qualifiers: Coronary Disease-Associated Artery/Lesion type: unspecified vessel or lesion type [place] vs. transplanted heart: [place] heart Associated angina: angina presence unspecified Qualified Code(s): I25.10 - Atherosclerotic heart disease of [place] coronary artery without angina pectoris (2) Congestive heart failure Current Visit: Yes Status: Acute Patient has congestive heart failure. BNP of 1264. Most recent ECHO showed LVEF technically difficult study, limited views, est EF 45%%. Mildly enlarged left atrial size. Mild hypokinesis of the right ventricle. Mildly enlarged right atrial size. Aortic valve: trileaflet, opens well, no significant , trace AI.no significant MR, prolapse or MS mitral stenosis.Moderate tricuspid regurgitation. Mild pulmonic regurgitation. Pericardium: no significant effusion. Techincally limited study, no significant change from 12/2016 Moderately dilated right ventricle, septal flattening consistent wih RV pressure overload. Based on the medical records the patient appears to be approximately 10 kg over his baseline weight which is an improvement from yesterday. Patient is currently being diuresed.. He was net negative yesterday 1085 ml. Today he is net negative 1175ml. Continue to monitor patient's I&O. Monitor patients weight. Qualifiers: Congestive heart failure type: systolic Congestive heart failure chronicity : acute on chronic Qualified Code(s): I50.23 - Acute on chronic systolic ( congestive) heart failure (3) Anemia Current Visit: Yes Status: Acute Acute on chronic amenia requiring blood transfusions. Patient had a positive stool occult. GI has been consulted. Current hemoglobin is 7.1 which has improved from yesterday of 6.6. Currently being managed by primary service. We recommend continuing the patients plavix at this time due to the recent stent placement and it being a long proximal LAD SHEYLA. If the patient should require an EGD and the endooscopist prefers to perform the procedure without plavix it can be held and then it should be restarted after the procedure is completed Qualifiers: Anemia type: iron deficiency Iron deficiency anemia type: chronic blood loss Qualified Code(s): D50.0 - Iron deficiency anemia secondary to blood loss (chronic) (4) COPD (chronic obstructive pulmonary disease) Current Visit: Yes Status: Chronic Patient has a known history of COPD. Wears 2-3L of oxygen at home. Currently on 3L of oxygen here. This is being managed by the primary team Qualifiers: COPD type: chronic bronchitis Chronic bronchitis type: simple Qualified Code(s): J41.0 - Simple chronic bronchitis (5) Type 2 diabetes mellitus Current Visit: Yes Status: Chronic This is currently being manage with insulin in the hospital. Most recent A1c is 8.2. This is currently being managed by the primary team Qualifiers: Diabetes mellitus complication status: with hyperglycemia Diabetes mellitus halfway insulin use: with shop superintendent use Qualified Code(s): E11.65 - Type 2 diabetes mellitus with hyperglycemia; Z79.4 - biofuels plant operations engineer (current) use of insulin (6) Tobacco abuse Current Visit: No Status: Chronic Patient has a history of smoking but states he has not has any cigarettes for the past couple of weeks. Continue with smoking cessation. (7) DVT prophylaxis Current Visit: Yes Status: Acute Patient has antiembolic stockings ordered. No longer on Heparin. Patient is anemic with a GI bleed. This is currently being managed by the primary service. Discussion w patient/family: The assessment and plan as outlined above was discussed with the patient and/or family members who expressed understanding and agreement. All questions were answered. Thank you for involving us in the care of your patient. Please call with any questions. Subjective Principal diagnosis: ASIM Interval history: Overnight the patient was transfered to the ICU for a fever and worsening of his hemodynamics. However this has all improved and the plan is to transfer the patient out of the ICU today. The patient states that he is feeling much better and that his shortness of breath has significantly improved. He also states that the swelling in his legs have also improved but still has a lot of swelling. Patient denies any chest pain, palpitations, arm pain or any heart complaints. He states that he is feeling good today and feels like he could go home. Patient denies vomiting any blood or having any blood in his stool today. He states that he is basically feeling like he is back to his baseline. Objective Vital Signs, Last 4 Hours Temp Pulse Resp BP Pulse Ox 08/09/17 12:00 102 20 117/80 95 08/09/17 11:56 97.8 F 08/09/17 10:00 101 22 114/76 98 08/09/17 09:40 16 97 General: Conversant, No Apparent Distress HEENT: Atraumatic, Normocephaly, Mucus Membranes Moist Neck: No JVD, Normal carotid pulses Cardiac: Reg Rate and Rhythm, Normal S1 and S2, No Murmur Lungs: Other (Wheezes bilaterally) Neuro: Alert and responsive, No focal deficits noted Abdomen: Soft, Non-Tender Skin: No rashes noted on visualized skin Extremities: No Clubbing, No Cyanosis, Normal Pulses, Other (3+ edema in bilateral lower extremities) Results 08/09/17 04:00 08/09/17 04:00 Lab Results 08/08/17 08/09/17 08/09/17 16:20 04:00 04:00 WBC 19.5 H Hgb 7.7 L 7.1 L Hct 26.3 L 24.4 L Plt Count 139 L INR Sodium 138 Potassium 3.6 Chloride 95 L Carbon Dioxide 33 H BUN 66 H Creatinine 1.09 Glucose 94 Calcium 9.2 Total Bilirubin 1.4 H AST 18 ALT 12 Alkaline Phosphatase 72 08/09/17 04:00 WBC Hgb Hct Plt Count INR 1.5 Sodium Potassium Chloride Carbon Dioxide BUN Creatinine Glucose Calcium Total Bilirubin AST ALT Alkaline Phosphatase - Imaging and Cardiology Chest Xray: report reviewed Echo: report reviewed Other Results: Abdominal CT report viewed - VTE Documentation of Mechanical Device: Graduated compression elastic hosiery Consult Discharge Plan - Plan Instructions: Heart Failure (DC), Atrial Flutter (DC), Atrial Fibrillation (DC) , Acute Respiratory Distress Syndrome (DC), Acute Kidney Injury (DC), Acute Kidney Injury (GEN), Diabetes Mellitus Type 2 in Adults (DC), Chronic Obstructive Pulmonary Disease (DC), Anemia (GEN), Pneumonia (DC), Cigarette Smoking and Your Health, Office Asst (GEN) Additional Instructions: pcp requested Referrals: Tawanda Chi MD [Primary Care Provider] - 08/08/17 10:30 am
[2017-08-09] MEDS ORDERED: Acetaminophen 325 MG TABLET PO PRN (14:16)
[2017-08-09] MEDS ORDERED: Naloxone 0.4 MG/ML INJ IVP PRN (14:16)
[2017-08-09] MEDS ORDERED: Dextrose Gel 15 GM PO PRN ×2 (14:16)
[2017-08-09] MEDS ORDERED: Albuterol 2.5 MG/3 ML NEBULIZER IH PRN (14:16)
[2017-08-09] MEDS ORDERED: Nitroglycerin 0.4 MG TAB.SUBL SL PRN (14:16)
[2017-08-09] MEDS ORDERED: Mag Hydrox/Al Hydrox/Simeth 30 ML UDC PO PRN (14:16)
[2017-08-09] MEDS ORDERED: *HR* Dextrose 50 % in Water (Syg) 50 ML SYRINGE IVP PRN (14:16)
[2017-08-09] MEDS ORDERED: D5% in Water 1,000 ML IVC PRN (14:16)
[2017-08-09] MEDS: Furosemide 40 MG/4 ML VIAL IVP SCH (17:20)
[2017-08-09] MEDS: Spironolactone 25 MG TABLET PO SCH (21:07)
[2017-08-09] MEDS: Insulin DETEMIR 100 UNIT/ML X5UNITS SQ SCH (21:48)
[2017-08-10] MEDS: Budesonide/Formoterol 160/4.5 MDI IH SCH ×3 (00:04→22:33)
[2017-08-10] MEDS: Ipratropium/Albuterol Neb 3 ML IH SCH ×5 (00:04→22:34)
[2017-08-10] MEDS: GuaiFENesin Liq 200 MG/10 ML UDC PO SCH ×4 (00:39→17:14)
[2017-08-10] MEDS: Piperacillin/Tazobactam 3.375 GM in D5% in Water (Mini-Bag+) 100 ML IVPB SCH ×3 (00:39→16:18)
[2017-08-10] MEDS: Pantoprazole 40 MG VIAL IVP SCH ×2 (05:25→17:13)
[2017-08-10 05:52] LABS: Immature Granulocytes % 0.3 % (0-4)
[2017-08-10 05:54] LABS: Basophils % 0.1 %; Eosinophils # 0.1 K/mcL (0.0-0.6); Eosinophils % 0.8 %; Hematocrit 24.3 % (37.5-50.1); Hemoglobin 7.1 g/dL (12.9-16.9); Lymphocytes # 1.2 K/mcL (0.6-4.6); Lymphocytes % 11.5 %; Mean Corpuscular HGB Conc 29.2 g/dL (31.6-35.5); Mean Corpuscular Hemoglobin 24.7 pg (28.0-33.3); Mean Corpuscular Volume 84.4 fL (83.0-100.0); Mean Platelet Volume 10.8 fL (9.4-12.4); Monocytes # 1.1 K/mcL (0.0-1.3); Monocytes % 10.1 %; Platelet Count 152 K/mcL (140-400); Red Blood Count 2.88 M/mcL (4.19-5.50); Segmented Neutrophils % 77.2 %
[2017-08-10 05:55] LABS: Neutrophils # 8.3 K/mcL (1.6-8.9)
[2017-08-10 06:20] LABS: Anisocytosis 3+ (Not Present); Hypochromasia Present (Not Present); Macrocytosis Present (Not Present); Microcytosis Present (Not Present); Platelet Estimate Normal (Normal); Polychromasia 1+ (Not Present); Reactive Lymphocytes Present (Not Present)
[2017-08-10] MEDS: *HR* HYDROcodone/Acet 7.5/325 mg TABLET PO PRN ×2 (07:00→17:14)
[2017-08-10] MEDS: Insulin LISPRO 300 UNITS/3 ML VIAL SQ SCH ×4 (07:40→20:43)
[2017-08-10] MEDS: Spironolactone 25 MG TABLET PO SCH ×2 (07:49→20:43)
[2017-08-10] MEDS: Gabapentin 300 MG CAPSULE PO SCH ×3 (07:49→20:43)
[2017-08-10] MEDS: Furosemide 40 MG/4 ML VIAL IVP SCH ×2 (07:50→16:17)
--- NOTE | 2017-08-10 08:02 | Nephrology Progress Note ---
Date of Encounter: 08/10/17 Time of Encounter: 08:02 - Assessment and Plan (1) Acute kidney injury Current Visit: No Status: Acute 57-year-old male admitted for CHF exacerbation and acute on chronic respiratory failure. Baseline creatinine 1.0 and GFR greater than 60. Patient was undergoing diuresis in the setting of volume overload and developed acute kidney injury. IV diuresis was discontinued 2 days prior to this consult and the patient was provided normal saline IV without response. Acute kidney injury continued to worsen with a current creatinine of 2.10 and GFR of 32, BUN elevated from 27-46. -Supporting history: Patient has a known history of systolic heart failure with ejection fraction of 40% currently undergoing treatment for CHF exacerbation, known type II diabetic with most recent hemoglobin A1c of 7.7 with current glucose levels around 200. new diagnosis of liver cirrhosis with a liver ultrasound cirrhotic morphology of the liver with trace perihepatic ascites. 08/10: Creatinine and GFR continue to show improvement daily, BUN steadily improving. He continues to have an elevation in his metabolic alkalosis with his bicarbonate at 37 today and they require a dose of Acetazolamide. Metabolic alkalosis likely secondary to IV Lasix. Potassium is 3.7 this morning which remained steady from yesterday. Continue spironolactone without addition of KCl as I expect his potassium to steadily improve. - Urine output 3100, -2240 fluid balance yesterday. Steady improvement in volume status and decrease in excess water weight. Plan: - Continue IV Lasix twice a day. - Continue spironolactone 25 mg twice a day - Tolerating Midodrine 5mg as scheduled. - Monitor bicarbonate level if continues to increase he may require another dose of Acetazolamide - Strict intake and output monitoring, standing daily weights - Avoid nephrotoxic medication and renally dose antibiotics - At time of discharge it would be recommended to hold Bumex and continue with oral Lasix. (2) Type 2 diabetes mellitus Current Visit: Yes Status: Chronic Patient is a known type II diabetic, current glucoses have been around 200 withan A1C of 7.7. Plan: - Management per primary team - Recommend tighter glucose control for renal benefit. Qualifiers: Diabetes mellitus complication status: with hyperglycemia Diabetes mellitus math instructor insulin use: with math instructor use Qualified Code(s): E11.65 - Type 2 diabetes mellitus with hyperglycemia; Z79.4 - senior hydrogeologist (current) use of insulin (3) Anemia Current Visit: Yes Status: Acute Hemoglobin steady at 7.1 with improving BUN. Patient may have had GI loss of hemoglobin and will continue to recommend discussion with gastroenterology. Review of patient records demonstrates that advertising photographer see Mr. Ruiz and recommend he stays on his Plavix for his SHEYLA. - Recommend PRBC transfusion when hemoglobin drops below 7.0. Qualifiers: Anemia type: iron deficiency Iron deficiency anemia type: chronic blood loss Qualified Code(s): D50.0 - Iron deficiency anemia secondary to blood loss (chronic) Subjective Principal diagnosis: ASIM Interval history: Mr. Ruiz 57-year-old male has been seen and evaluated patient bedside this morning. He is sitting up eating breakfast and is alert and oriented 3. He states that he is feeling better and denies any concerns or discomforts at this time. He does wish to go home when he is able to. He denies any headaches, change in vision, chest pain, palpitations, shortness of breath, abdominal pains , nausea vomiting diarrhea constipation. He feels that his lower extremity edema is improving and after discussion regarding discontinuing his Bumex and continuing Lasix at home he feels that would be appropriate. Objective - Vital Signs Vital signs: Vital Signs Temp Pulse Resp BP Pulse Ox 08/10/17 07:09 97.3 F L 95 18 108/71 95 08/10/17 04:07 16 98 08/10/17 03:00 97.8 F 107 18 110/69 93 08/10/17 00:05 21 93 08/09/17 23:12 97.7 F 94 19 99/62 94 08/09/17 22:27 98.9 F 83 18 111/47 93 08/09/17 19:35 97.9 F 94 18 107/65 97 08/09/17 16:28 18 98 08/09/17 15:55 97.6 F 101 18 105/67 98 08/09/17 15:00 103 20 105/77 95 08/09/17 14:00 102 22 118/84 96 08/09/17 12:00 102 20 117/80 95 08/09/17 11:56 97.8 F 08/09/17 10:00 101 22 114/76 98 08/09/17 09:40 16 97 08/09/17 09:00 96 20 122/74 97 Intake and Output 08/09/17 08/10/17 08/10/17 23:59 07:59 15:59 Intake Total 160 / 160 900 / 900 Output Total 1025 / 1025 500 / 500 Balance -865 / -865 400 / 400 Intake: IV Fluids 100 / 100 100 / 100 Zosyn 3.375 GM In Dextrose 5% ( 100 / 100 100 / 100 Minibag+) 100 ML 100 ML @ 25 mls/hr IVPB Q8HR [facility] Rx#: [id number] Oral 60 / 60 800 / 800 Output: Urine 1025 / 1025 500 / 500 Other: Meal Dinner Percent of Meal Consumed 70% Weight 89 kg Blood Glucose* 132 75 Patient Weight 08/10/17 23:59 Weight 89 kg - General Appearance Exam: General: Patient awake, oriented 3, interactive, in no acute distress HEENT: Normocephalic, atraumatic, pupils equal reactive to light, oral mucosa moist, neck supple trachea midline no palpable lymphadenopathy, no thyromegaly. Chest: Symmetric bilateral correlating with respiratory effort, effort nonlabored. Cardiac: Regular rate and rhythm, positive S1 and S2. no bruits appreciated bilateral carotids, Radial pulses 2+ bilateral, posterior tibial and dorsal pedal pulses 2+ bilateral. Respiratory: Diffuse rhonchi and expiratory wheeze. Abdomen: Soft, nontender, positive bowel sounds, positive fluid wave. Extremities: Symmetric bilateral, bilateral lower extremities with 2+ pitting edema, improving. Neurologic: No focal deficits appreciated on examination. Face symmetric, muscle strength symmetric bilateral upper and lower extremities. - Lab 08/10/17 05:30 08/10/17 07:52 Most recent lab results ABG pH 7.41 pH Units (7.32-7.45) 08/08/17 18:30 ABG pCO2 62 mmHg (35-45) H 08/08/17 18:30 ABG pO2 75 mmHg (85-104) L 08/08/17 18:30 ABG HCO3 39 mEq/L (21-27) H 08/08/17 18:30 ABG O2 Saturation 95 % (95-98) 08/08/17 18:30 Calcium 9.2 mg/dL (8.6-10.8) 08/09/17 04:00 Urine Creatinine 177 mg/dL 08/05/17 22:20 Urine Sodium < 20.0 mEq/L 08/05/17 22:20 - VTE Documentation of Mechanical Device: Graduated compression elastic hosiery Consult Discharge Plan - Plan Instructions: Heart Failure (DC), Atrial Flutter (DC), Atrial Fibrillation (DC) , Acute Respiratory Distress Syndrome (DC), Acute Kidney Injury (DC), Acute Kidney Injury (GEN), Diabetes Mellitus Type 2 in Adults (DC), Chronic Obstructive Pulmonary Disease (DC), Anemia (GEN), Pneumonia (DC), Cigarette Smoking and Your Health, Ping Pong Table Assembler (GEN) Additional Instructions: pcp requested Referrals: Tawanda Chi MD [Primary Care Provider] - 08/08/17 10:30 am
[2017-08-10 08:22] LABS: Alanine Aminotransferase 15 Units/L (0-55); Albumin 3.3 g/dL (3.5-5.0); Albumin/Globulin Ratio 1.1 (1.1-2.2); Alkaline Phosphatase 76 Units/L (38-126); Aspartate Amino Transferase 23 Units/L (5-34); BUN/Creatinine Ratio 42 (6-26); Bilirubin,Total 1.1 mg/dL (0.2-1.2); Calcium 9.1 mg/dL (8.6-10.8); Carbon Dioxide 37 mEq/L (19-29); Chloride 101 mEq/L (98-109); Globulin 2.9 g/dL (2.4-3.5); Glucose 62 mg/dL (70-99); Osmolality,Calculated 306 (280-300); Potassium 3.7 mEq/L (3.5-4.5); Sodium 144 mEq/L (136-145); Total Protein 6.2 g/dL (6.0-8.3); eGFR For African Americans > 60 (> 60); eGFR For Non-African Americans > 60 (> 60)
[2017-08-10 08:24] LABS: Blood Urea Nitrogen 42 mg/dL (8-26)
--- NOTE | 2017-08-10 10:31 | Internal Med Progress Note ---
<Dionte Jimenez - Last Filed: 08/10/17 10:37> Date of Encounter: 08/10/17 Time of Encounter: 10:27 - Assessment and plan (1) Acute on chronic systolic (congestive) heart failure Current Visit: Yes Status: Acute Assessment and plan: Previous echo shows EF of 40% with abnormal septal motion, dilated right ventricle, moderate pulmonary hypertension. for past 48 hours patient has been successfully diuresed with Lasix and now will be started on spironolactone. His kidney function remains stable. strict I/O Anasarca has resolved and Loestrin edema has dramatically improved. patient encouraged to prop up legs on stool (2) Anemia Current Visit: Yes Status: Acute Assessment and plan: Microcytic anemia 2nd to anemia of chronic disease as well as iron def anemia Positive fecal occult blood test. Hemoglobin now stable at 7.1 BP stable Patient states he does not want to undergo EGD. Talked with Dr. Aleman and patient can follow up outpatient. Repeat CBC morning Cardiac ADA fluid restricted diet. Qualifiers: Anemia type: iron deficiency Iron deficiency anemia type: chronic blood loss Qualified Code(s): D50.0 - Iron deficiency anemia secondary to blood loss (chronic) (3) Acute kidney injury Current Visit: Yes Status: Acute Assessment and plan: 2nd to diuresis resloved Continue patient on Lasix. Patient will be started on spironolactone today Appreciate nephrology recommendations. continue midodrine Strict I's and O's Avoid nephrotoxins. BMP in am appreciate nephrology recommendations (4) Cirrhosis Current Visit: Yes Status: Suspected Assessment and plan: currently etiology but alcohol may have played a rale as patient admits to drinking 3-4 beers in the past (has not had drink in [address]/Abdomen pelvis in 12/2016 showed evidence of ascties and cirrhosis Liver US confirmed finding hepatitis panel negative antismooth muscle antibiody negative Will get GI oupatient follow up. Qualifiers: Hepatic cirrhosis type: unspecified hepatic cirrhosis Ascites presence: with ascites Qualified Code(s): K74.60 - Unspecified cirrhosis of liver (5) Acute on chronic respiratory failure with hypoxemia Current Visit: Yes Status: Resolved Assessment and plan: Secondary to CHF exacerbation, pneumonia. We held diuresis due to development of hypotenstion. on home 3L O2 oxygenating >90% continue to monitor patient more fluid overloaded 2nd to transfusion. Diuresis restarted. (6) Coronary artery disease Current Visit: Yes Status: Chronic Assessment and plan: Received stents in Dec 2016. due to anemia aspirin d/c cardiology recommends continuing plavix due to recent SHEYLA placed in LAD in Dec Patient will likely go home on Plavix only as combination of aspirin Plavix increased patients chance of bleeding in setting of chirrosis. Qualifiers: Coronary Disease-Associated Artery/Lesion type: [place] artery [place] vs. transplanted heart: [place] heart Associated angina: without angina Qualified Code(s): I25.10 - Atherosclerotic heart disease of [place] coronary artery without angina pectoris (7) Diabetes mellitus type 2 in nonobese Current Visit: Yes Status: Chronic Assessment and plan: Controlled. Continue diabetic diet. Continue SS insulin. (8) Leukocytosis Current Visit: Yes Status: Chronic Assessment and plan: acute on chronic; follows with Hematology; Negative for hepatitis Peripheral blood smear negative BCR/ABL negative Follow up outpatient with oncology Qualifiers: Leukocytosis type: unspecified Qualified Code(s): D72.829 - Elevated white blood cell count, unspecified (9) Atrial flutter Current Visit: Yes Status: Acute Assessment and plan: After left heart catheterization in December patient had episode of a flutter Patient was initially started on xarelto this was discontinued due to nosebleeds. Currently regular rate and rhythm Qualifiers: Atrial flutter type: unspecified Qualified Code(s): I48.92 - Unspecified atrial flutter (10) Pneumonia Current Visit: Yes Status: Resolved Assessment and plan: Patient does not report symptoms of coughing, and is using home oxygen at 3 L. pneumonia suspected but less likely. had five days levaquin. resolved. Qualifiers: Pneumonia type: due to unspecified organism Laterality: right Lung location: lower lobe of lung Qualified Code(s): J18.1 - Lobar pneumonia, unspecified organism - Subjective Interval history: Patient's lower extremity edema has dramatically improved. He is able to ambulate without assistance. His shortness of breath is stable. He is on his home 3 L oxygen. Denies chest pain, palpitations, nausea, vomiting, abdominal pain - Constitutional Vitals: Temp Pulse Resp BP Pulse Ox 97.3 F L 95 18 108/71 95 08/10/17 07:09 08/10/17 07:09 08/10/17 07:09 08/10/17 07:09 08/10/17 07:09 General appearance: Present: A&O X 3 (facial puffiness noted), answers questions appropriately - Respiratory Additional comments: Bilateral basilar rales - Cardiovascular Cardiovascular exam: Present: RRR, +S1, +S2. Absent: diastolic murmur, gallop, rubs, systolic murmur - GI/Abdominal GI/Abdominal exam: Present: normal bowel sounds, soft, no peritoneal signs. Absent: distended, tenderness - Extremities Exam Extremities exam: Present: pedal edema (2+) - Skin Skin exam: Present: dry, intact Internal Medicine: Result - Labs CBC & Chem 7: 08/10/17 05:30 08/10/17 07:52 Labs: Short CBC 08/10/17 Range/Units 05:30 WBC 10.7 (4.3-11.1) K/mcL Hgb 7.1 L (12.9-16.9) g/dL Hct 24.3 L (37.5-50.1) % Plt Count 152 (140-400) K/mcL Neutrophils # 8.3 (1.6-8.9) K/mcL BMP 08/10/17 07:52 Sodium 144 Potassium 3.7 Chloride 101 Carbon Dioxide 37 H BUN 42 H D Creatinine 0.99 Glucose 62 L Calcium 9.1 Liver Function 08/10/17 Range/Units 07:52 Total Bilirubin 1.1 (0.2-1.2) mg/dL AST 23 (5-34) Units/L ALT 15 (0-55) Units/L Alkaline Phosphatase 76 (38-126) Units/L Albumin 3.3 L (3.5-5.0) g/dL - ABG Interpretation ABG results: ABG ABG pH 7.41 pH Units (7.32-7.45) 08/08/17 18:30 ABG pCO2 62 mmHg (35-45) H 08/08/17 18:30 ABG pO2 75 mmHg (85-104) L 08/08/17 18:30 ABG O2 Saturation 95 % (95-98) 08/08/17 18:30 PT/INR, D-dimer PT 16.5 Seconds (9.4-12.1) H 08/09/17 04:00 - VTE Documentation of Mechanical Device: Graduated compression elastic hosiery Consult Discharge Plan - Plan Instructions: Heart Failure (DC), Atrial Flutter (DC), Atrial Fibrillation (DC) , Acute Respiratory Distress Syndrome (DC), Acute Kidney Injury (DC), Acute Kidney Injury (GEN), Diabetes Mellitus Type 2 in Adults (DC), Chronic Obstructive Pulmonary Disease (DC), Anemia (GEN), Pneumonia (DC), Cigarette Smoking and Your Health, Breaker Machine Tender (GEN) Additional Instructions: pcp requested Referrals: Tawanda Chi MD [Primary Care Provider] - 08/08/17 10:30 am <Janusz Ponce - Last Filed: 08/10/17 16:09> Date of Encounter: 08/10/17 - Assessment and plan (1) Acute on chronic respiratory failure with hypoxemia Current Visit: Yes Status: Resolved (2) Anemia Current Visit: Yes Status: Acute Qualifiers: Anemia type: iron deficiency Iron deficiency anemia type: chronic blood loss Qualified Code(s): D50.0 - Iron deficiency anemia secondary to blood loss (chronic) (3) Acute on chronic systolic (congestive) heart failure Current Visit: Yes Status: Acute (4) Cirrhosis Current Visit: Yes Status: Suspected Qualifiers: Hepatic cirrhosis type: alcoholic cirrhosis Ascites presence: with ascites Qualified Code(s): K70.31 - Alcoholic cirrhosis of liver with ascites (5) Coronary artery disease Current Visit: Yes Status: Chronic Qualifiers: Coronary Disease-Associated Artery/Lesion type: [place] artery [place] vs. transplanted heart: [place] heart Associated angina: without angina Qualified Code(s): I25.10 - Atherosclerotic heart disease of [place] coronary artery without angina pectoris (6) Type 2 diabetes mellitus Current Visit: Yes Status: Chronic Qualifiers: Diabetes mellitus complication status: with hyperglycemia Diabetes mellitus senior care insulin use: with termite exterminator helper use Qualified Code(s): E11.65 - Type 2 diabetes mellitus with hyperglycemia; Z79.4 - remote computer terminal operator (current) use of insulin (7) Acute kidney injury Current Visit: Yes Status: Resolved - Constitutional Vitals: Temp Pulse Resp BP Pulse Ox 97.5 F L 94 18 103/67 95 08/10/17 10:56 08/10/17 10:56 08/10/17 10:56 08/10/17 10:56 08/10/17 10:56 Internal Medicine: Result - Labs CBC & Chem 7: 08/10/17 05:30 08/10/17 07:52 Labs: Short CBC 08/10/17 Range/Units 05:30 WBC 10.7 (4.3-11.1) K/mcL Hgb 7.1 L (12.9-16.9) g/dL Hct 24.3 L (37.5-50.1) % Plt Count 152 (140-400) K/mcL Neutrophils # 8.3 (1.6-8.9) K/mcL BMP 08/10/17 07:52 Sodium 144 Potassium 3.7 Chloride 101 Carbon Dioxide 37 H BUN 42 H D Creatinine 0.99 Glucose 62 L Calcium 9.1 Liver Function 08/10/17 Range/Units 07:52 Total Bilirubin 1.1 (0.2-1.2) mg/dL AST 23 (5-34) Units/L ALT 15 (0-55) Units/L Alkaline Phosphatase 76 (38-126) Units/L Albumin 3.3 L (3.5-5.0) g/dL - ABG Interpretation ABG results: ABG ABG pH 7.41 pH Units (7.32-7.45) 08/08/17 18:30 ABG pCO2 62 mmHg (35-45) H 08/08/17 18:30 ABG pO2 75 mmHg (85-104) L 08/08/17 18:30 ABG O2 Saturation 95 % (95-98) 08/08/17 18:30 PT/INR, D-dimer PT 16.5 Seconds (9.4-12.1) H 08/09/17 04:00 - Attending Attestation I examined this patient and my medical decision-making was reviewed with the Resident Physician on 08/10/17. I agree with the documented findings, disposition and treatment plan as described except to the extent set forth below. Mr Ruiz is currently admitted for acute exac CHF and ASIM. He remains moderate to high risk due to potential for worsening respiratory status. He is planning for EGD to eval acute anemia. Mr. Ruiz feels OK. No CP. No SOB. Up in chair. Edema doing better. Exam Alert. Comfortable Mucus membranes dry Heart irreg and not tachy Lungs with scattered rales Abd soft Edema present I/P 1. CHF 2. ASIM 3. Cirrhosis Further diagnoses and plan as above.
--- NOTE | 2017-08-10 10:45 | Gastroenterology Progress Note ---
<Jessica Ferguson - Last Filed: 08/10/17 10:42> Date of Encounter: 08/10/17 Time of Encounter: 09:45 - Assessment and plan (1) Iron deficiency anemia Current Visit: Yes Status: Acute Assessment and plan: No bright red bleeding noted. EGD 02/21 showed non-bleeding gastritis. Has continued drop in hemoglobin. Respiratory status is improved. Spoke with cardiology and pt is cleared for EGD. Pt is on plavix due to CAD. Will keep NPO after midnight and proceed with EGD in am. (2) Cirrhosis of liver Current Visit: Yes Status: Acute Assessment and plan: Platelets and albumin low. Will monitor liver function tests. (3) CAD (coronary artery disease) Current Visit: Yes Status: Acute Assessment and plan: Pt had coronary stent 12/24 and is on plavix. May need held due to GI bleeding if ok with cardiology. Qualifiers: Coronary Disease-Associated Artery/Lesion type: unspecified vessel or lesion type [place] vs. transplanted heart: [place] heart Associated angina: angina presence unspecified Qualified Code(s): I25.10 - Atherosclerotic heart disease of [place] coronary artery without angina pectoris - Time Spent With Patient Total time spent is greater than 50% in coordination of care (as documented) at patient's floor/unit and/or counseling patient: - Subjective Interval history: Patient presented with CHF. Respiratory status is improved and BLE edema is improving. He remains anemic with a hgb 7.1 this morning. He denies any further bloody stools. He reports BM was yellow liquid this morning. He denies abdominal pain, nausea, vomiting, or difficulty swallowing. - Constitutional Vitals: Temp Pulse Resp BP Pulse Ox 97.3 F L 95 18 108/71 95 08/10/17 07:09 08/10/17 07:09 08/10/17 07:09 08/10/17 07:09 08/10/17 07:09 Exam: CONSTITUTIONAL:~alert, no acute distress.~HEAD:~normocephalic.~EYES:~no jaundice.~NECK:~no obvious swelling.~HEART:~regular rate and rhythm, no murmurs. ~LUNGS:~fair air entry, minimal crackles to posterior bases.~ABDOMEN:~non distended, soft, non tender, no masses pulpable, no organomegaly.~RECTAL EXAM:~ Deferred.~EXTREMITIES:~no clubbing, cyanosis or 2-3+ BLE edema.~SKIN:~pallor is noted, no stigmata of chronic liver disease.~NEUROLOGIC:~no obvious focal defect.~~~~ Results - Labs CBC & Chem 7: 08/10/17 05:30 08/10/17 07:52 Labs: Last Result Calcium 9.1 mg/dL (8.6-10.8) 08/10/17 07:52 Troponin I 0.06 ng/mL (0-0.03) H* 08/01/17 07:01 Triglycerides 64 mg/dL (< 150) 08/01/17 01:12 Stool Occult Blood Positive (Negative) A 08/07/17 12:00 Entire Visit Hgb 7.1 g/dL (12.9-16.9) L 08/10/17 05:30 Hct 24.3 % (37.5-50.1) L 08/10/17 05:30 PT 16.5 Seconds (9.4-12.1) H 08/09/17 04:00 Total Bilirubin 1.1 mg/dL (0.2-1.2) 08/10/17 07:52 AST 23 Units/L (5-34) 08/10/17 07:52 ALT 15 Units/L (0-55) 08/10/17 07:52 Ammonia 20 mcmol/L (18-72) 08/09/17 04:00 - ABG ABG results: ABG ABG pH 7.41 pH Units (7.32-7.45) 08/08/17 18:30 ABG pCO2 62 mmHg (35-45) H 08/08/17 18:30 ABG pO2 75 mmHg (85-104) L 08/08/17 18:30 ABG O2 Saturation 95 % (95-98) 08/08/17 18:30 PT/INR, D-dimer PT 16.5 Seconds (9.4-12.1) H 08/09/17 04:00 - VTE Documentation of Mechanical Device: Graduated compression elastic hosiery Consult Discharge Plan - Plan Instructions: Heart Failure (DC), Atrial Flutter (DC), Atrial Fibrillation (DC) , Acute Respiratory Distress Syndrome (DC), Acute Kidney Injury (DC), Acute Kidney Injury (GEN), Diabetes Mellitus Type 2 in Adults (DC), Chronic Obstructive Pulmonary Disease (DC), Anemia (GEN), Pneumonia (DC), Cigarette Smoking and Your Health, Graphics Coordinator (GEN) Additional Instructions: pcp requested Referrals: Tawanda Chi MD [Primary Care Provider] - 08/08/17 10:30 am <ShashankAureTherese - Last Filed: 08/10/17 17:30> Date of Encounter: 08/10/17 Time of Encounter: 15:00 - Time Spent With Patient Total time spent is greater than 50% in coordination of care (as documented) at patient's floor/unit and/or counseling patient: - Constitutional Vitals: Temp Pulse Resp BP Pulse Ox 98.0 F 98 17 101/66 98 08/10/17 16:04 08/10/17 16:04 08/10/17 16:24 08/10/17 16:04 08/10/17 16:24 Results - Labs CBC & Chem 7: 08/10/17 05:30 08/10/17 07:52 Labs: Last Result Calcium 9.1 mg/dL (8.6-10.8) 08/10/17 07:52 Troponin I 0.06 ng/mL (0-0.03) H* 08/01/17 07:01 Triglycerides 64 mg/dL (< 150) 08/01/17 01:12 Stool Occult Blood Positive (Negative) A 08/07/17 12:00 Entire Visit Hgb 7.1 g/dL (12.9-16.9) L 08/10/17 05:30 Hct 24.3 % (37.5-50.1) L 08/10/17 05:30 PT 16.5 Seconds (9.4-12.1) H 08/09/17 04:00 Total Bilirubin 1.1 mg/dL (0.2-1.2) 08/10/17 07:52 AST 23 Units/L (5-34) 08/10/17 07:52 ALT 15 Units/L (0-55) 08/10/17 07:52 Ammonia 20 mcmol/L (18-72) 08/09/17 04:00 - ABG ABG results: ABG ABG pH 7.41 pH Units (7.32-7.45) 08/08/17 18:30 ABG pCO2 62 mmHg (35-45) H 08/08/17 18:30 ABG pO2 75 mmHg (85-104) L 08/08/17 18:30 ABG O2 Saturation 95 % (95-98) 08/08/17 18:30 PT/INR, D-dimer PT 16.5 Seconds (9.4-12.1) H 08/09/17 04:00 - Attending Attestation I examined this patient and my medical decision-making was reviewed with the Resident Physician. I agree with the documented findings, disposition and treatment plan as described except to the extent set forth below.
[2017-08-10] MEDS: Insulin DETEMIR 100 UNIT/ML X5UNITS SQ SCH (20:43)
[2017-08-11] MEDS: GuaiFENesin Liq 200 MG/10 ML UDC PO SCH ×4 (00:44→16:44)
[2017-08-11] MEDS: Piperacillin/Tazobactam 3.375 GM in D5% in Water (Mini-Bag+) 100 ML IVPB SCH ×3 (00:44→15:58)
[2017-08-11 03:51] LABS: Hematocrit 26.1 % (37.5-50.1); Red Cell Distribution Width 25.3 % (11.5-14.5)
[2017-08-11 03:53] LABS: Hemoglobin 7.5 g/dL (12.9-16.9); Mean Corpuscular HGB Conc 28.7 g/dL (31.6-35.5); Mean Corpuscular Hemoglobin 24.8 pg (28.0-33.3); Mean Corpuscular Volume 86.1 fL (83.0-100.0); Mean Platelet Volume 10.7 fL (9.4-12.4); Platelet Count 186 K/mcL (140-400); Red Blood Count 3.03 M/mcL (4.19-5.50)
[2017-08-11] MEDS: *HR* HYDROcodone/Acet 7.5/325 mg TABLET PO PRN (03:55)
[2017-08-11] MEDS: Ipratropium/Albuterol Neb 3 ML IH SCH ×3 (04:00→15:56)
[2017-08-11 04:02] LABS: BUN/Creatinine Ratio 31 (6-26); Blood Urea Nitrogen 33 mg/dL (8-26); Calcium 8.7 mg/dL (8.6-10.8); Carbon Dioxide 35 mEq/L (19-29); Chloride 100 mEq/L (98-109); Glucose 116 mg/dL (70-99); Osmolality,Calculated 304 (280-300); Potassium 3.6 mEq/L (3.5-4.5); Sodium 143 mEq/L (136-145); eGFR For African Americans > 60 (> 60); eGFR For Non-African Americans > 60 (> 60)
[2017-08-11] MEDS: Pantoprazole 40 MG VIAL IVP SCH (05:33)
[2017-08-11] MEDS: Insulin LISPRO 300 UNITS/3 ML VIAL SQ SCH ×3 (07:51→16:31)
[2017-08-11] MEDS: Furosemide 40 MG/4 ML VIAL IVP SCH (08:21)
--- NOTE | 2017-08-11 08:53 | Nephrology Progress Note ---
Date of Encounter: 08/11/17 Time of Encounter: 08:52 - Assessment and Plan (1) Acute kidney injury Current Visit: Yes Status: Acute 57-year-old male admitted for CHF exacerbation and acute on chronic respiratory failure. Baseline creatinine 1.0 and GFR greater than 60. Patient was undergoing diuresis in the setting of volume overload and developed acute kidney injury. IV diuresis was discontinued 2 days prior to this consult and the patient was provided normal saline IV without response. Acute kidney injury continued to worsen with a current creatinine of 2.10 and GFR of 32, BUN elevated from 27-46. -Supporting history: Patient has a known history of systolic heart failure with ejection fraction of 40% currently undergoing treatment for CHF exacerbation, known type II diabetic with most recent hemoglobin A1c of 7.7 with current glucose levels around 200. new diagnosis of liver cirrhosis with a liver ultrasound cirrhotic morphology of the liver with trace perihepatic ascites. 08/11: Mr. Ruiz renal function continues to stay stable with current creatinine 1.07, GFR greater than 60, urine output 1450 and positive fluid balance of 10 over the past 24 hours. Clinically he is much improved. Plans to switch from IV Lasix to oral 40 mg Lasix twice a day during his inpatient stay, continue spironolactone and at the time of discharge is recommended he be discharged on midodrine 5 mg 3 times a day - Mr. Ruiz should be seen in the nephrology office post discharge from this hospital stay for follow up. Plan: - Continue IV Lasix twice a day. - Continue spironolactone 25 mg twice a day - Tolerating Midodrine 5mg as scheduled. - Monitor bicarbonate level if continues to increase he may require another dose of Acetazolamide - Strict intake and output monitoring, standing daily weights - Avoid nephrotoxic medication and renally dose antibiotics - At time of discharge it would be recommended to hold Bumex and continue with oral Lasix. (2) Type 2 diabetes mellitus Current Visit: Yes Status: Chronic Hyperglycemia much improved during inpatient stay. Plan: - Management per primary team - Recommend tighter glucose control for renal benefit. Qualifiers: Diabetes mellitus complication status: with hyperglycemia Diabetes mellitus senior living insulin use: with terminal operations supervisor use Qualified Code(s): E11.65 - Type 2 diabetes mellitus with hyperglycemia; Z79.4 - termite control service representative (current) use of insulin (3) Anemia Current Visit: Yes Status: Acute Hemoglobin steady at 7.1 with improving BUN. Patient may have had GI loss of hemoglobin and will continue to recommend discussion with gastroenterology. Review of patient records demonstrates that bale sewer see Mr. Ruiz and recommend he stays on his Plavix for his SHEYLA. - Recommend PRBC transfusion when hemoglobin drops below 7.0. Qualifiers: Anemia type: iron deficiency Iron deficiency anemia type: chronic blood loss Qualified Code(s): D50.0 - Iron deficiency anemia secondary to blood loss (chronic) Subjective Principal diagnosis: ASIM Interval history: Mr. Ruiz 57-year-old male has been seen and evaluated patient bedside this morning. He is sitting up eating breakfast and is alert and oriented 3. He denies any chest pain, shortness of breath, palpitations, chest pressure, abdominal pains, nausea vomiting diarrhea constipation, blood in his sputum, urine, bowels. He states that he is going home today after his EGD. After discussion regarding improvement in his renal function and new medications at discharge she had no further questions. Objective - Vital Signs Vital signs: Vital Signs Temp Pulse Resp BP Pulse Ox 08/11/17 07:24 97.7 F 88 20 105/67 93 08/11/17 04:10 97.5 F L 91 19 102/68 94 08/11/17 04:00 17 92 08/10/17 23:39 98.0 F 98 18 101/65 100 08/10/17 22:33 17 93 08/10/17 19:53 97.5 F L 64 19 104/69 92 08/10/17 16:24 17 98 08/10/17 16:04 98.0 F 98 18 101/66 93 08/10/17 10:56 97.5 F L 94 18 103/67 95 08/10/17 10:38 16 98 Intake and Output 08/10/17 08/11/17 08/11/17 23:59 07:59 15:59 Intake Total 220 / 220 100 / 100 Output Total 150 / 150 525 / 525 Balance 70 / 70 -425 / -425 Intake: IV Fluids 100 / 100 100 / 100 Zosyn 3.375 GM In Dextrose 5% ( 100 / 100 100 / 100 Minibag+) 100 ML 100 ML @ 25 mls/hr IVPB Q8HR [facility] Rx#: [id number] Oral 120 / 120 Output: Urine 150 / 150 525 / 525 Other: Meal Dinner Percent of Meal Consumed 60% Weight 89.993 kg Blood Glucose* 173 109 Patient Weight 08/11/17 23:59 Weight 89.993 kg - General Appearance Exam: General: Patient awake, oriented 3, interactive, in no acute distress HEENT: Normocephalic, atraumatic, pupils equal reactive to light, oral mucosa moist, neck supple trachea midline no palpable lymphadenopathy, no thyromegaly. Chest: Symmetric bilateral correlating with respiratory effort, effort nonlabored. Cardiac: Regular rate and rhythm, positive S1 and S2. no bruits appreciated bilateral carotids, Radial pulses 2+ bilateral, posterior tibial and dorsal pedal pulses 2+ bilateral. Respiratory: Diffuse rhonchi and expiratory wheeze. Abdomen: Soft, nontender, positive bowel sounds, positive fluid wave. Extremities: Symmetric bilateral, bilateral lower extremities with 2+ pitting edema, improving. Neurologic: No focal deficits appreciated on examination. Face symmetric, muscle strength symmetric bilateral upper and lower extremities. - Lab 08/11/17 03:40 08/11/17 03:40 Most recent lab results ABG pH 7.41 pH Units (7.32-7.45) 08/08/17 18:30 ABG pCO2 62 mmHg (35-45) H 08/08/17 18:30 ABG pO2 75 mmHg (85-104) L 08/08/17 18:30 ABG HCO3 39 mEq/L (21-27) H 08/08/17 18:30 ABG O2 Saturation 95 % (95-98) 08/08/17 18:30 Calcium 8.7 mg/dL (8.6-10.8) 08/11/17 03:40 Urine Creatinine 177 mg/dL 08/05/17 22:20 Urine Sodium < 20.0 mEq/L 08/05/17 22:20 - VTE Documentation of Mechanical Device: Graduated compression elastic hosiery Consult Discharge Plan - Plan Instructions: Heart Failure (DC), Atrial Flutter (DC), Atrial Fibrillation (DC) , Acute Respiratory Distress Syndrome (DC), Acute Kidney Injury (DC), Acute Kidney Injury (GEN), Diabetes Mellitus Type 2 in Adults (DC), Chronic Obstructive Pulmonary Disease (DC), Anemia (GEN), Pneumonia (DC), Cigarette Smoking and Your Health, Cart Attendant (GEN) Additional Instructions: pcp requested Referrals: Tawanda Chi MD [Primary Care Provider] - 08/08/17 10:30 am
[2017-08-11] MEDS: Budesonide/Formoterol 160/4.5 MDI IH SCH (10:20)
[2017-08-11] MEDS: Gabapentin 300 MG CAPSULE PO SCH ×2 (10:57→15:59)
[2017-08-11] MEDS: Spironolactone 25 MG TABLET PO SCH (10:57)
--- NOTE | 2017-08-11 14:25 | Anesthesia Evaluation PreOp ---
Date of Encounter: 08/11/17 Time of Encounter: 14:23 - Past History Planned Operation: EGD Cardiac History: ND, CHF, HTN, Hyperlipidemia, Cardiac Stent (recent; 2-2016; plavix was recommended to be continued in setting of acute blood loss anemia if possible) Pulmonary History: Smoker, COPD (uses 3L oxygen at home all the time) TECHNICAL PUBLICATIONS MANAGER History: Denies Any Significant HX Other Medical History: Renal (acute renal injury this hospitalization), Diabetes Type II (uses insulin) Anesthesia History: No Prior Anesthetic Complications Alcohol Use: none Drug use: none Medications and Allergies Gabapentin [Neurontin] 600 mg PO TID 12/11/16 [History] Omeprazole [PriLOSEC] 20 mg PO DAILY 12/11/16 [History] HYDROcodone/Acet 7.5/325 mg [[place] 7.5-325 mg] 1 tab PO Q6H PRN 12/17/16 [ History] Atorvastatin [Lipitor] 20 mg PO HS #30 tablet 12/23/16 [Rx] Clopidogrel [Plavix] 75 mg PO DAILY #30 tablet 12/23/16 [Rx] Nitroglycerin 0.4 mg SL Q5MIN PRN #30 tab.subl 12/23/16 [Rx] Ipratropium/Albuterol Neb [Duoneb] 3 ml IH QIDR #100 inhsol 12/28/16 [Rx] Magnesium Oxide [Mag-Ox] 400 mg PO BID #60 tablet 03/22/17 [Rx] Cholecalciferol (Vitd3)/Vit K2 [D3 + K2 Dots 1,000 Units Tab] 2 each PO DAILY [History] Docusate [Colace] 100 mg PO DAILY 07/31/17 [History] Ferrous Sulfate [Iron] 325 mg PO BID 07/31/17 [History] Insulin ASPART [Novolog Flexpen] 0 unit SQ ACHS 07/31/17 [History] Polyethylene Glycol 3350 [MiraLAX] 17 gm PO DAILY 07/31/17 [History] Bumetanide [Bumex] 1 mg PO DAILY 08/01/17 [History] Gemfibrozil [Lopid] 600 mg PO BID 08/01/17 [History] Metformin HCl [Glucophage] 1,000 mg PO BID 08/01/17 [History] Potassium Chloride [Klor-Con 10] 10 meq PO DAILY 08/01/17 [History] Spironolactone [Aldactone] 25 mg PO DAILY 08/01/17 [History] 3 Allergy/AdvReac Type Severity Reaction Status Date / Time No Known Allergies Allergy Verified 08/01/17 09:44 - Meds/Allergy Pre-op Review Medications Reviewed: Yes Allergies Reviewed: Yes Beta Blockers on Current Med List: No Anesthesia Results - Labs 08/11/17 03:40 08/11/17 03:40 - Imaging EKG: report reviewed, image reviewed (SINUS TACHYCARDIA LEFT ATRIAL ENLARGEMENT MARKED RIGHT AXIS DEVIATION INCOMPLETE RIGHT BUNDLE BRANCH BLOCK) Anesthesia Exam Last Vital Signs Temp 97.5 F L 08/11/17 14: Pulse 91 08/11/17 14:17 Resp 18 08/11/17 14:17 BP 115/75 08/11/17 14:17 Pulse Ox 95 08/11/17 14:17 Weight: 90 kg NPO (# of Hours): > 8 hrs - HEENT Pupil (Motor): Pupils equal, EOMI Mallampati: III Teeth: Poor dentition Oral Opening: Greater than 3 - TECHNICAL PUBLICATIONS MANAGER LOC: Oriented TECHNICAL PUBLICATIONS MANAGER Motor: Normal RUE, Normal LUE, Normal RLE, Normal LLE, Normal Face - Cardiac Rhythm: Regular Murmur: None - Pulmonary Breath Sounds: bilateral Clear Respiratory Effort: Symmetrical Anesthesia Assess/Plan ASA Score: 4 Modified Jenifer Scale for Level of Consciousness: Cooperative, oriented, and tranquil Anesthetic Plan: MAC (In setting of acute systolic CHF exacerbation, recent stent (< 6 month old SHEYLA), hx ND, COPD requiring continuous home oxygen) Monitoring Plan: Standard Monitors Recovery Plan: PACU
--- NOTE | 2017-08-11 15:18 | Anesthesia Evaluation Post Op ---
Date of Encounter: 08/11/17 Time of Encounter: 15:15 - Vital Signs Vital Signs: 3 Vital Signs Time 1515 BP 102/71 Pulse 93 Resp 24 O2 Sat 90 - Lungs Lungs: Clear Ascult./Percussion - Airway Airway: Non-obstructed - Cardiovascular Irregular Rate, Baseline Rhythm - Mental Status Mental Status: Alert & Oriented, Answers Appropriately - Pain Pain Scale: 0 - Nausea Vomiting Nausea Vomiting: Not Present - Hydration Hydration: NPO, Has not voided - Discharge PostOp Status: Transfer Patient to floor
[2017-08-11 15:32] VITALS: BP 129/84
[2017-08-11] MEDS ORDERED: Colchicine 0.6 MG TABLET PO ONE (15:44)
--- NOTE | 2017-08-11 15:56 | Discharge Summary ---
<Dionte Jimenez - Last Filed: 08/11/17 18:33> Date of Encounter: 08/11/17 Time of Encounter: 15:43 - Discharge Diagnosis (1) Acute on chronic systolic (congestive) heart failure Priority: Primary Status: Acute (2) Anemia Priority: Secondary Status: Acute Qualifiers: Anemia type: iron deficiency Iron deficiency anemia type: chronic blood loss Qualified Code(s): D50.0 - Iron deficiency anemia secondary to blood loss (chronic) (3) Acute kidney injury Priority: Secondary Status: Resolved (4) Cirrhosis Priority: Secondary Status: Suspected Qualifiers: Hepatic cirrhosis type: unspecified hepatic cirrhosis Ascites presence: with ascites Qualified Code(s): K74.60 - Unspecified cirrhosis of liver (5) Acute on chronic respiratory failure with hypoxemia Priority: Secondary Status: Resolved (6) Coronary artery disease Priority: Secondary Status: Chronic Qualifiers: Coronary Disease-Associated Artery/Lesion type: [place] artery [place] vs. transplanted heart: [place] heart Associated angina: without angina Qualified Code(s): I25.10 - Atherosclerotic heart disease of [place] coronary artery without angina pectoris (7) Diabetes mellitus type 2 in nonobese Priority: Secondary Status: Chronic (8) Leukocytosis Priority: Secondary Status: Chronic Qualifiers: Leukocytosis type: unspecified Qualified Code(s): D72.829 - Elevated white blood cell count, unspecified (9) Atrial flutter Priority: Secondary Status: Acute Qualifiers: Atrial flutter type: unspecified Qualified Code(s): I48.92 - Unspecified atrial flutter (10) Pneumonia Priority: Secondary Status: Resolved Qualifiers: Pneumonia type: due to unspecified organism Laterality: right Lung location: lower lobe of lung Qualified Code(s): J18.1 - Lobar pneumonia, unspecified organism - Discharge Medications Prescriptions: Amoxicillin/Clavulanate [Augmentin] 875 mg PO BIDWM #7 tablet Budesonide/Formoterol 160/4.5 [Symbicort 160/4.5] 2 puff IH BIDR #1 inhaler Bumetanide [Bumex] 1 mg PO DAILY #30 tablet Colchicine [Colcrys] 0.6 mg PO DAILY #10 tablet Ferrous Sulfate 325 mg PO BID #60 tablet Insulin ASPART [Novolog Flexpen] 5 unit SQ ACHS #3 insuln.pen Midodrine [ProAmatine] 5 mg PO 0800,1200,1700 #90 tablet Pantoprazole Sodium 40 mg PO DAILY #30 tablet. Home Medications: Gabapentin [Neurontin] 600 mg PO TID 12/11/16 [History] HYDROcodone/Acet 7.5/325 mg [[place] 7.5-325 mg] 1 tab PO Q6H PRN 12/17/16 [ History] Atorvastatin [Lipitor] 20 mg PO HS #30 tablet 12/23/16 [Rx] Clopidogrel [Plavix] 75 mg PO DAILY #30 tablet 12/23/16 [Rx] Nitroglycerin 0.4 mg SL Q5MIN PRN #30 tab.subl 12/23/16 [Rx] Ipratropium/Albuterol Neb [Duoneb] 3 ml IH QIDR #100 inhsol 12/28/16 [Rx] Magnesium Oxide [Mag-Ox] 400 mg PO BID #60 tablet 03/22/17 [Rx] Cholecalciferol (Vitd3)/Vit K2 [D3 + K2 Dots 1,000 Units Tab] 2 each PO DAILY [History] Docusate [Colace] 100 mg PO DAILY 07/31/17 [History] Ferrous Sulfate [Iron] 325 mg PO BID 07/31/17 [History] Polyethylene Glycol 3350 [MiraLAX] 17 gm PO DAILY 07/31/17 [History] Gemfibrozil [Lopid] 600 mg PO BID 08/01/17 [History] Metformin HCl [Glucophage] 1,000 mg PO BID 08/01/17 [History] Potassium Chloride [Klor-Con 10] 10 meq PO DAILY 08/01/17 [History] Spironolactone [Aldactone] 25 mg PO DAILY 08/01/17 [History] Amoxicillin/Clavulanate [Augmentin] 875 mg PO BIDWM #7 tablet 08/11/17 [Rx] Budesonide/Formoterol 160/4.5 [Symbicort 160/4.5] 2 puff IH BIDR #1 inhaler 03/23 [Rx] Bumetanide [Bumex] 1 mg PO DAILY #30 tablet 08/11/17 [Rx] Colchicine [Colcrys] 0.6 mg PO DAILY #10 tablet 08/11/17 [Rx] Ferrous Sulfate 325 mg PO BID #60 tablet 08/11/17 [Rx] Insulin ASPART [Novolog Flexpen] 5 unit SQ ACHS #3 insuln.pen 08/11/17 [Rx] Midodrine [ProAmatine] 5 mg PO 0800,1200,1700 #90 tablet 08/11/17 [Rx] Pantoprazole Sodium 40 mg PO DAILY #30 tablet. 08/11/17 [Rx] Allergies/Adverse Reactions: 3 Allergy/AdvReac Type Severity Reaction Status Date / Time No Known Allergies Allergy Verified 08/01/17 09:44 Procedures/tests Complete & Pending: Procedures Performed prior 72 hours Category Date Time Status CT abdomen wo no iv no oral [CT] Stat Cat Scan 08/08/17 16:47 Completed Date of admission: 07/31/17 18:07 Primary care physician: Tawanda Chi MD Consults: 07/31/17 18:04 Consult to Correctional Therapy Teacher [CONS] Routine Reason for SW Consult: ADVANCE DIRECTIVES. 08/05/17 10:35 Consult to Nephrology [CONS] Routine Consulting Provider: Kidney [facility]/CHERRI/JANAE/KELLY Reason for Consult: ASIM Call Completed: Yes 08/08/17 08:22 Consult to Gastroenterology [CONS] Routine Consulting Provider: Gastroenterology [facility] Reason for Consult: GI bleed. hgb 6.6 Call Completed: Yes 08/08/17 10:36 Consult to Cardiology [CONS] Routine Comment: Consulting Provider: Cardiology [facility] Reason for Consult: GI bleed on aspirin and plavix Call Completed: Yes 08/08/17 17:02 Consult to Pulmonology [CONS] Routine Consulting Provider: Pulm [facility] [place] Reason for Consult: sepsis hypotension Call Completed: Yes Discharging clinician: Dionte Jimenez Anticipated date of discharge: 08/11/17 - Patient Status Disposition: Home, Self-Care Condition: Fair Functional capacity at discharge: independent ambulation Overall status at discharge: patient is progressing back to baseline - Discharge Instructions Instructions: Heart Failure (DC), Atrial Flutter (DC), Atrial Fibrillation (DC) , Acute Respiratory Distress Syndrome (DC), Acute Kidney Injury (DC), Acute Kidney Injury (GEN), Diabetes Mellitus Type 2 in Adults (DC), Chronic Obstructive Pulmonary Disease (DC), Anemia (GEN), Pneumonia (DC), Cigarette Smoking and Your Health, 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 ) Hayden Avalos DO [Partnered Physician] - (hosp f/u ) Therese Encarnacion MD [Partnered Physician] - (cirrhosis hospital f/u ) Additional Instructions: pcp requested Please start ensure 3 times a day. Stay on a high-protein diet. Low-salt diet. Water limit 1.5 L to 2 L. Do not drink Gatorade. Please follow-up with gastroenterology, nephrology, primary care physician. Patient was given colchicine for gout for 10 days. Please follow up with PCP regarding kidney function while on this medication. Please monitor your weight daily. If he notices an increase in weight please contact PCP or tank builder for recommendations on what to do. Please return to the emergency room for fear of worsening shortness of breath, chest pain, dizziness, weakness, syncope, lower extremity swelling. - Diet and Activity Activity: increase activity as tolerated, wear oxygen at all times (3L) Diet: low fat, low cholesterol, low salt diet, other (high protient diet: ensure TID. ) Hospital course: Mr. Ruiz is a 57 year old male presented with chief complaint of shortness of breath and productive cough. Patient states that last week he was hospitalized at [facility] for acute respiratory failure secondary to CHF exacerbation pneumonia. At that time he was intubated and had a hospitalization of 2 weeks. After discharge from [facility] he noticed within the next couple days his lower extremity swell and his shortness of breath Worse. On presentation to the ER patient was hypoxic with anasarca, 3+, 4 pitting edema in the lower extremities and abdomen was distended. Patient was admitted for treatment of acute systolic CHF exacerbation. Patient was started on diuresis with Lasix and initially had improvement in his lower extremity edema, shortness of breath. He continued to stay on his home 3 L oxygen. On day 4 of admission patient developed contraction alkalosis with a worsening of his creatinine from 0.81-1.42. Diuresis was discontinued and patient was given normal saline for improvement of his kidney function. However his kidney function did not improve and nephrology was consulted for further evaluation. Patient was found to have history of alcoholism and liver US showed evidence of cirrhosis (no prior history cirrhosis). Furthermore patient was hypotensive (90s/60s). Patient was started on albumin and due to his developing anemia given one packed red blood cell. With the additional infusions patient's lower extremity edema and anasarca worsened however his renal function started to improve with successful diureses in the last 72 hours and resoultion of ansarca and improvement of LE edema to 2+. Patient was restarted on lasix and then transitioned to PO lasix and spironolactone. Patient 's fecal occult blood test was positive, patient started on PPI and gastroenterology was consulted for upper endoscopy. Patient needed one additional unit of PBRC. Furthermore cardiology was consultated as patient had recently had drug eluding stent placed in December and was on Plavix. EGD showed one non-bleeding gastric ulcer and multiple duodenal ulcers, and biopsy was taken. Patient also developed pneumonia during this time and treated with antibiotics. Cultures (suptum, blood) were negative and he was transitioned to augmentin on discharge. Plan: follow up with PCP. Patient discharged on bumex 1mg daily and spironalactone 24mg daily. He was instructed to eat high protein, low salt, fluid restricted diet of 1500-2000cc. He was given 7 days of bumex for his PNA. He has followup appointment with GI (cirrhosis and egd follow up) and nephrology. He was also given prescription for colchicine and advised to stop taking indomethacin for his gout and not take NsAIDS. He was started on protonix. - Time Spent with Patient Total time spent providing and/or coordinating discharge services: - Constitutional Vitals: Temp Pulse Resp BP Pulse Ox 97.7 F 92 15 129/84 91 08/11/17 15:30 08/11/17 15:30 08/11/17 15:30 08/11/17 15:30 08/11/17 15:30 General appearance: Present: A&O X 3 (facial puffiness noted), answers questions appropriately - Head Head exam: Present: atraumatic, normocephalic - Eye Eye exam: Present: PERRL, conjuntiva pink, sclera anicteric - Neck Neck exam general surgery: Present: supple, trachea midline. Absent: lymphadenopathy - Respiratory Respiratory exam: Present: rales (bibasilar ). Absent: accessory muscle use, rhonchi, wheezes - Cardiovascular Cardiovascular exam: Present: RRR, +S1, +S2. Absent: diastolic murmur, gallop, rubs, systolic murmur - GI/Abdominal GI/Abdominal exam: Present: normal bowel sounds, soft, no peritoneal signs. Absent: distended, tenderness - Extremities Exam Extremities exam: Present: pedal edema (2+), warm, radial pulses palpable and symmetrical. Absent: calf tenderness, cyanotic - Neurological Exam Neurological exam: Present: CN II-XII intact, oriented X3, no focal deficits. Absent: pronater drift, facial droop, speech deficit - Skin Skin exam: Present: dry, intact - VTE Documentation of Mechanical Device: Graduated compression elastic hosiery <Janusz Ponce - Last Filed: 08/11/17 22:36> Date of Encounter: 08/11/17 - Discharge Diagnosis (1) Acute on chronic respiratory failure with hypoxemia Priority: Primary Status: Resolved (2) Anemia Status: Acute Qualifiers: Anemia type: iron deficiency Iron deficiency anemia type: chronic blood loss Qualified Code(s): D50.0 - Iron deficiency anemia secondary to blood loss (chronic) (3) Acute on chronic systolic (congestive) heart failure Status: Acute (4) Cirrhosis Priority: Secondary Status: Suspected Qualifiers: Hepatic cirrhosis type: alcoholic cirrhosis Ascites presence: with ascites Qualified Code(s): K70.31 - Alcoholic cirrhosis of liver with ascites (5) Coronary artery disease Status: Chronic Qualifiers: Coronary Disease-Associated Artery/Lesion type: [place] artery [place] vs. transplanted heart: [place] heart Associated angina: without angina Qualified Code(s): I25.10 - Atherosclerotic heart disease of [place] coronary artery without angina pectoris (6) Type 2 diabetes mellitus Priority: Secondary Status: Chronic Qualifiers: Diabetes mellitus complication status: with hyperglycemia Diabetes mellitus senior care insulin use: with senior care use Qualified Code(s): E11.65 - Type 2 diabetes mellitus with hyperglycemia; Z79.4 - alf (current) use of insulin (7) Acute kidney injury Status: Resolved (8) Gastric ulcer Priority: Secondary Status: Acute Qualifiers: Gastric ulcer chronicity: acute Gastric ulcer complication status: without hemorrhage or perforation Qualified Code(s): K25.3 - Acute gastric ulcer without hemorrhage or perforation (9) Acute duodenal ulcer Priority: Secondary Status: Acute Date of admission: 07/31/17 18:07 Primary care physician: Tawanda Chi MD Consults: 07/31/17 18:04 Consult to Correctional Therapy Teacher [CONS] Routine Reason for SW Consult: ADVANCE DIRECTIVES. 08/05/17 10:35 Consult to Nephrology [CONS] Routine Consulting Provider: Kidney Alba/CHERRI/JANAE/KELLY Reason for Consult: ASIM Call Completed: Yes 08/08/17 08:22 Consult to Gastroenterology [CONS] Routine Consulting Provider: Gastroenterology Al[facility] Reason for Consult: GI bleed. hgb 6.6 Call Completed: Yes 08/08/17 10:36 Consult to Cardiology [CONS] Routine Comment: Consulting Provider: Cardiology [facility] Reason for Consult: GI bleed on aspirin and plavix Call Completed: Yes 08/08/17 17:02 Consult to Pulmonology [CONS] Routine Consulting Provider: Pulm Crit [facility] [place] Reason for Consult: sepsis hypotension Call Completed: Yes Hospital course: Mr. Ruiz is a 57 year old male - Time Spent with Patient Total time spent providing and/or coordinating discharge services: - Constitutional Vitals: Temp Pulse Resp BP Pulse Ox 97.7 F 92 15 129/84 91 08/11/17 15:30 08/11/17 15:30 08/11/17 15:30 08/11/17 15:30 08/11/17 15:30 - Attending Attestation I examined this patient and my medical decision-making was reviewed with the Resident Physician on 08/11/17. I agree with the documented findings, disposition and treatment plan as described except to the extent set forth below. Mr Ruiz has been admitted for exac CHF. He has been found to have a gastric ulcer and duodenal ulcers. He is afebrile with stable vitals. He will be discharged home today. Exam Alert. Comfortable Mucus membranes dry Heart irrg Lungs diminished Plan: D/C home today
[2017-08-11] MEDS ORDERED: Furosemide 40 MG TABLET PO SCH (17:00)
[2017-08-11] MEDS ORDERED: *HR* Propofol 200 MG/20 ML VIAL IVP ONE (17:54)
[2017-08-11] MEDS ORDERED: *HR* Phenylephrine 10 MG/ML VIAL IVC ONE (17:54)
[2017-08-12] MEDS ORDERED: Pantoprazole 40 MG VIAL IVP SCH (07:00)
--- NOTE | 2017-08-12 17:03 | Physician Discharge Referral ---
Home Health/Hosp Referral Info Transfer to: Home Health Provider in Charge Post Discharge: PCP - Diagnosis (1) Acute on chronic respiratory failure with hypoxemia Priority: Primary Status: Resolved (2) Anemia Priority: Secondary Status: Acute (3) Acute on chronic systolic (congestive) heart failure Priority: Primary Status: Acute (4) Cirrhosis Priority: Secondary Status: Suspected (5) Coronary artery disease Priority: Secondary Status: Chronic (6) Type 2 diabetes mellitus Priority: Secondary Status: Chronic (7) Acute kidney injury Priority: Secondary Status: Resolved (8) Gastric ulcer Priority: Secondary Status: Acute (9) Acute duodenal ulcer Priority: Secondary Status: Acute - Respiratory Orders Oxygen / L per min (3 liters) Smoking Cessation: Smoking cessation has been advised. For more information, call the [place] Tobacco Quit Line at 2-171-ZQJU-NOW. - Diet/Nutrition Diet/Nutrition Orders: No Added Salt (ADEN), Cardiac, No Concentrated Sweets - Activity Activity Orders: Up ad elis - Services Needed Following services are medically necessary services: Nursing, Home Health Aide - Transfer Medications Prescriptions: Amoxicillin/Clavulanate [Augmentin] 875 mg PO BIDWM #7 tablet Budesonide/Formoterol 160/4.5 [Symbicort 160/4.5] 2 puff IH BIDR #1 inhaler Bumetanide [Bumex] 1 mg PO DAILY #30 tablet Colchicine [Colcrys] 0.6 mg PO DAILY #10 tablet Ferrous Sulfate 325 mg PO BID #60 tablet Insulin ASPART [Novolog Flexpen] 5 unit SQ ACHS #3 insuln.pen Midodrine [ProAmatine] 5 mg PO 0800,1200,1700 #90 tablet Pantoprazole Sodium 40 mg PO DAILY #30 tablet.dr Home Medications: Gabapentin [Neurontin] 600 mg PO TID 12/11/16 [History] HYDROcodone/Acet 7.5/325 mg [[place] 7.5-325 mg] 1 tab PO Q6H PRN 12/17/16 [ History] Atorvastatin [Lipitor] 20 mg PO HS #30 tablet 12/23/16 [Rx] Clopidogrel [Plavix] 75 mg PO DAILY #30 tablet 12/23/16 [Rx] Nitroglycerin 0.4 mg SL Q5MIN PRN #30 tab.subl 12/23/16 [Rx] Ipratropium/Albuterol Neb [Duoneb] 3 ml IH QIDR #100 inhsol 12/28/16 [Rx] Magnesium Oxide [Mag-Ox] 400 mg PO BID #60 tablet 03/22/17 [Rx] Cholecalciferol (Vitd3)/Vit K2 [D3 + K2 Dots 1,000 Units Tab] 2 each PO DAILY [History] Docusate [Colace] 100 mg PO DAILY 07/31/17 [History] Ferrous Sulfate [Iron] 325 mg PO BID 07/31/17 [History] Polyethylene Glycol 3350 [MiraLAX] 17 gm PO DAILY 07/31/17 [History] Gemfibrozil [Lopid] 600 mg PO BID 08/01/17 [History] Metformin HCl [Glucophage] 1,000 mg PO BID 08/01/17 [History] Potassium Chloride [Klor-Con 10] 10 meq PO DAILY 08/01/17 [History] Spironolactone [Aldactone] 25 mg PO DAILY 08/01/17 [History] Amoxicillin/Clavulanate [Augmentin] 875 mg PO BIDWM #7 tablet 08/11/17 [Rx] Budesonide/Formoterol 160/4.5 [Symbicort 160/4.5] 2 puff IH BIDR #1 inhaler 03/23 [Rx] Bumetanide [Bumex] 1 mg PO DAILY #30 tablet 08/11/17 [Rx] Colchicine [Colcrys] 0.6 mg PO DAILY #10 tablet 08/11/17 [Rx] Ferrous Sulfate 325 mg PO BID #60 tablet 08/11/17 [Rx] Insulin ASPART [Novolog Flexpen] 5 unit SQ ACHS #3 insuln.pen 08/11/17 [Rx] Midodrine [ProAmatine] 5 mg PO 0800,1200,1700 #90 tablet 08/11/17 [Rx] Pantoprazole Sodium 40 mg PO DAILY #30 tablet. 08/11/17 [Rx] Allergies/Adverse Reactions: 3 Allergy/AdvReac Type Severity Reaction Status Date / Time No Known Allergies Allergy Verified 08/01/17 09:44 Certification: Further, I certify that my clinical findings support that this patient is homebound (i.e. absences from home require considerable and taxing effort and are for medical reasons or judaism services or infrequently or short duration when for other reasons) because: Homebound Reason: Patient requires assistance of a person or device to safely leave home, Leaving home requires considerable and taxing effort due to condition, Severity of cardiac or pulmonary status limits activity tolerance Attestation: My signature below is to certify that this patient is under my care and that I, or nurse practitioner, or a physician's records assistant working with me, has a face-to -face encounter with this patient.
== END 2017-08-11 17:55 | disposition home or self-care (01) | DRG 291 ==
LOC: 2NENU → SUATTDRO 18:07 → ICNU 08-08 17:19 → 2ANU 08-09 15:45
PROVIDERS: ADMIT Family Medicine; ATTEND Internal Medicine
PROC: ENDOEBX (2017-08-11 13:00)

== ENCOUNTER 2019-02-28 12:47 | Inpatient (IN) ==
[2019-02-28] MEDS ORDERED: cefTRIAXone 1,000 MG in Water for inj. (sterile) 20 ML 10 ML IVP ONE (13:11)
[2019-02-28] MEDS ORDERED: methylPREDNISolone 125 MG/2 ML VIAL IVP ONE (13:11)
[2019-02-28] MEDS ORDERED: Azithromycin 500 MG in D5% in Water 250 ML IVPB ONE (13:11)
[2019-02-28] MEDS ORDERED: Ipratropium/Albuterol Neb 3 ML IH ONE (13:11)
--- NOTE | 2019-02-28 13:32 | Emergency Department Note ---
Disposition Clinical Impression: Acute exacerbation of chronic obstructive airways disease, ASIM (acute kidney injury) Disposition: Admitted As Inpatient Condition: Fair Referrals: Tawanda Chi MD [Primary Care Provider] - Forms: ED Satisfaction Letter Time of Disposition: 16:03 SOB HPI - General Chief Complaint: ED Shortness of Breath/Dyspnea Stated Complaint: ANDREY,needs IV antibotics & steroids Time Seen by Provider: 02/28/19 13:01 Source: patient Mode of arrival: private vehicle Limitations: no limitations Nursing Notes Reviewed: Yes Vital Signs Reviewed: Yes - History of Present Illness 58-year-old male with a past medical history Congestive heart failure, COPD, type 2 diabetes, pulmonary hypertension, coronary artery disease, suspected cirrhosis, but has been on 2 different antibiotics as an outpatient but is still experiencing shortness of breath. Patient is normally on 2 L of oxygen at home, but is requiring more to maintain saturation. Has had levofloxacin and azithromycin as outpatient. Is endorsing shortness of breath, headache, cough, chills. reports 11lb weight gain in the last week. - Related Data Home Medications Medication Instructions Recorded Confirmed Albuterol Sulfate [Albuterol 2 puff IH Q4H PRN 07/20/17 11/09/17 Inhaler] Atorvastatin Calcium [Lipitor] 20 mg PO HS 07/20/17 11/09/17 Gabapentin [Neurontin] 600 mg PO TID 07/20/17 11/09/17 HYDROcodone/Acet 7.5/325 mg [[place] 1 tab PO Q4-6H PRN 07/20/17 11/09/17 7.5-325 mg] Nitroglycerin [Nitrostat] 0.4 mg SL Q5M PRN 07/20/17 11/09/17 Oxygen 3 l NS CONT 07/20/17 11/09/17 Gemfibrozil [Lopid] 600 mg PO BID 08/01/17 11/09/17 Spironolactone [Aldactone] 25 mg PO DAILY 08/01/17 11/09/17 Ferrous Sulfate [Iron] 325 mg PO BID 11/09/17 11/09/17 Glycopyrrolate/Formoterol Fum 2 puff IH BID 11/09/17 11/09/17 [Bevespi Aerosphere Inhaler] Insulin ASPART [Novolog Flexpen] 5 unit SQ ACHS PRN 11/09/17 11/09/17 Magnesium 250 mg PO DAILY 11/09/17 11/09/17 Vitamin E Acetate [Vitamin E] 400 unit PO DAILY 11/09/17 11/09/17 Previous Rx's Medication Instructions Recorded Clopidogrel [Plavix] 75 mg PO DAILY #30 tablet 12/23/16 Ipratropium/Albuterol Neb [Duoneb] 3 ml IH QIDR #100 inhsol 12/28/16 Midodrine [ProAmatine] 5 mg PO 0800,1200,1700 #90 tablet 08/11/17 Pantoprazole Sodium 40 mg PO DAILY #30 tablet. 08/11/17 Allergies Allergy/AdvReac Type Severity Reaction Status Date / Time No Known Allergies Allergy Verified 11/09/17 09:31 Review of Systems: All systems ED: reviewed and negative except as stated. Constitutional: Denies: fever, Reports: chills ENT ED: Denies: ear pain, throat pain Cardiovascular: Denies: chest pain, palpitations Respiratory: Reports: cough, dyspnea Gastrointestinal: Denies: abdominal pain, nausea, vomiting, diarrhea, constipation Genitourinary: Denies: urgency, dysuria, frequency Musculoskeletal: Denies: back pain, neck pain Integumentary: Denies: rash, abrasion Neurological: Denies: headache, weakness, numbness, paresthesias Psychiatric: Denies: anxiety, depression Endocrine: Denies: fatigue, heat or cold intolerance Hematological/Lymphatic: Denies: easy bleeding, easy bruising Allergic/Immunologic: Denies: facial swelling, urticaria Past Medical History - Past Medical History Attestation: Yes The following information was validated with the patient. Medical history: Reports: diabetes, GERD, myocardial infarction, atrial fibrillation, hyperlipidemia, hypertension, coronary artery disease, CHF, COPD Surgical history: Reports: angioplasty/stent, appendectomy Psychiatric history: Reports: no psych history, anxiety - Social History Smoking Status: Current every day smoker Smokeless Tobacco Status: No Alcohol use: Reports: none Drug use: Reports: none Physical Exam General: A&O x 3. No acute distress. Well developed, well nourished. Head: atraumatic, normocephalic. ENT: No conjunctival injection, no scleral icterus. PERRLA. EOMI. Oropharynx non- erythematous. mucous membranes moist. Neuro: No focal deficits, no speech deficit, no facial droop, mentating well. BUE/BLE Str 5/5. Pulm: Diffuse wheezes in all lung [place] Cardio: tachycardia. Chest not tender to palpation. Abd: Soft, non-distended. Normoactive bowel sounds. Non-tender to palpation. No guarding. Non rigid. Extremities: Radial pulses 2+ blanka, 2+blanka pitting edema. No cyanosis, clubbing. Skin: warm, dry, intact. No rashes. Psych: Appropriate mood and affect. Answers questions appropriately. Cooperative with exam. - General Limitations: no limitations General appearance: alert Course Course Narrative: Ddx includes but is not limited to: CHF exacerbation, COPD exacerbation, PNA - Reevaluation(s) Reevaluation #1: Positive troponin, elevated lactic at 3.2, CXR shows chronic interstitial lung disease, K at 5.9. Pt got 3 duonebs here, will administer 1L NaCl and well as kayexalate before admission. Time: 14:55 Vital Signs Temperature 97.5 F L 02/28/19 12:52 Pulse Rate 104 02/28/19 12:52 Respiratory Rate 22 02/28/19 12:52 Blood Pressure 117/76 02/28/19 12:52 O2 Sat by Pulse Oximetry 87 02/28/19 12:52 Temperature 97.5 F L 02/28/19 12:52 Pulse Rate 102 02/28/19 13:07 Respiratory Rate 18 02/28/19 13:28 Blood Pressure 129/88 02/28/19 13:07 O2 Sat by Pulse Oximetry 97 02/28/19 13:28 Oxygen Delivery Oxygen Delivery Nasal Cannula Shortness of Breath/Dyspnea - [facility] Narrative Medical decision making narrative: Pt had elevated WBC with PMN predominance, elevated lactic at 3.2, and was r equiring more oxygen than baseline home o2 to maintain saturation. Pt will need to be admitted for PNA, sepsis, for further management and treatment. Pt was given 1L NaCl for elevated creatinine and elevated lactic acid, he was given azithromycin and rocephin while in the department. Pt was admitted to hospitalist, Dr. Serrano, who accepted the pt to his service. Patient was given an opportunity to ask questions at bedside and all of their concerns were addressed. Patient verbalized understanding and agreement with plan of care. Pt remained stable while in the department. - Medical Records Medical records reviewed: Yes I reviewed the patient's medical records. - Lab Data Lab results reviewed: Yes I reviewed the patient's lab results. Result diagrams: 02/28/19 13:59 02/28/19 13:14 Lab Results 02/28/19 02/28/19 02/28/19 Range/Units 13:14 13:14 13:14 WBC (4.3-11.1) K/mcL RBC (4.19-5.50) M/mcL Hgb (12.9-16.9) g/dL Hct (37.5-50.1) % MCV (83.0-100.0) fL MCH (28.0-33.3) pg MCHC (31.6-35.5) g/dL RDW (11.5-14.5) % Plt Count (140-400) K/mcL MPV (9.4-12.4) fL Immature Gran % (0-4) % Seg Neutrophils % % Lymphocytes % % Monocytes % % Eosinophils % % Basophils % % Neutrophils # (1.6-8.9) K/mcL Lymphocytes # (0.6-4.6) K/mcL Monocytes # (0.0-1.3) K/mcL Eosinophils # (0.0-0.6) K/mcL Basophils # (0.0-0.2) K/mcL Nucleated RBCs/100 WBC (0) /100 WBC Sodium 136 (136-145) mEq/L Potassium 5.9 H (3.5-5.1) mEq/L Chloride 99 (98-107) mEq/L Carbon Dioxide 27 (23-29) mEq/L BUN 32 H (8-23) mg/dL Creatinine 1.59 H (0.70-1.30) mg/dL Est GFR ( Amer) 54 L (> 60) Est GFR (Non-Af Amer) 45 L (> 60) BUN/Creatinine Ratio 20 (6-26) Glucose 331 H (70-105) mg/dL Calculated Osmolality 302 H (280-300) Lactic Acid 3.2 H (0.5-2.2) mmol/L Calcium 9.3 (8.6-10.3) mg/dL Troponin I 0.05 H* (< 0.04) ng/mL B-Natriuretic Peptide 1088 H (Less than 100) pg/mL Urine Color (Yellow) Urine Clarity (Clear) Urine pH (5.0-8.0) pH Units Ur Specific [place] (1.010-1.025) Urine Protein (Neg-Trace) mg/dL Urine Glucose (UA) (Normal) mg/dL Urine Ketones (Negative) mg/dL Urine Blood (Negative) Urine Nitrite (Negative) Urine Bilirubin (Negative) Urine Urobilinogen (Normal) mg/dL Ur Leukocyte Esterase (Negative) Urine Microscopic RBC (0-3) per hpf Urine Microscopic WBC (0-3) per hpf Ur Squamous Epith Cells (None-Few) per lpf Urine Bacteria (None-Few) per hpf Hyaline Casts (None-Few) per lpf Urine Sperm Ur Culture Indicated? (NO) Specimen Rejected 02/28/19 02/28/19 02/28/19 Range/Units 13:46 13:59 14:01 WBC 12.8 H (4.3-11.1) K/mcL RBC 3.92 L (4.19-5.50) M/mcL Hgb 11.8 L (12.9-16.9) g/dL Hct 39.8 (37.5-50.1) % MCV 101.5 H D (83.0-100.0) fL MCH 30.1 (28.0-33.3) pg MCHC 29.6 L (31.6-35.5) g/dL RDW 14.2 (11.5-14.5) % Plt Count 187 (140-400) K/mcL MPV 12.0 (9.4-12.4) fL Immature Gran % 1.4 (0-4) % Seg Neutrophils % 89.2 % Lymphocytes % 7.7 % Monocytes % 1.3 % Eosinophils % 0.1 % Basophils % 0.3 % Neutrophils # 11.4 H (1.6-8.9) K/mcL Lymphocytes # 1.0 (0.6-4.6) K/mcL Monocytes # 0.2 (0.0-1.3) K/mcL Eosinophils # 0.0 (0.0-0.6) K/mcL Basophils # 0.0 (0.0-0.2) K/mcL Nucleated RBCs/100 WBC 0.2 H (0) /100 WBC Sodium (136-145) mEq/L Potassium (3.5-5.1) mEq/L Chloride (98-107) mEq/L Carbon Dioxide (23-29) mEq/L BUN (8-23) mg/dL Creatinine (0.70-1.30) mg/dL Est GFR ( Amer) (> 60) Est GFR (Non-Af Amer) (> 60) BUN/Creatinine Ratio (6-26) Glucose (70-105) mg/dL Calculated Osmolality (280-300) Lactic Acid (0.5-2.2) mmol/L Calcium (8.6-10.3) mg/dL Troponin I (< 0.04) ng/mL B-Natriuretic Peptide (Less than 100) pg/mL Urine Color Yellow (Yellow) Urine Clarity Clear (Clear) Urine pH 6.5 (5.0-8.0) pH Units Ur Specific [place] 1.023 (1.010-1.025) Urine Protein 30 H (Neg-Trace) mg/dL Urine Glucose (UA) 100 H (Normal) mg/dL Urine Ketones Negative (Negative) mg/dL Urine Blood Negative (Negative) Urine Nitrite Negative (Negative) Urine Bilirubin Negative (Negative) Urine Urobilinogen Normal (Normal) mg/dL Ur Leukocyte Esterase Negative (Negative) Urine Microscopic RBC 0-3 (0-3) per hpf Urine Microscopic WBC 0-3 (0-3) per hpf Ur Squamous Epith Cells Many H (None-Few) per lpf Urine Bacteria None Seen (None-Few) per hpf Hyaline Casts None Seen (None-Few) per lpf Urine Sperm Present Ur Culture Indicated? NO (NO) Specimen Rejected MCV Delta - Radiology Data Radiology results reviewed: Yes I reviewed the patient's radiology results. Chest X-Ray 02/28/19 13:11 IMPRESSION: Chronic interstitial lung disease. Enlarged main pulmonary artery questioning pulmonary hypertension. D/ / 02/28/2019 13:48:29 Gonzalo Brumfield MD / [facility] Interpreting Provider: Gonzalo Brumfield MD - EKG Data EKG attestation: Yes I reviewed and interpreted this EKG. EKG results narrative: HR 107, rhythm sinus tachycardia, axis right at 114. [place] 145, QRS 107, QTc 427. No evidence of ST elevation or depression. No LVH criteria.
[2019-02-28 14:07] LABS: Calcium 9.3 mg/dL (8.6-10.3); Potassium 5.9 mEq/L (3.5-5.1); Troponin I 0.05 ng/mL (< 0.04)
[2019-02-28 14:12] LABS: Basophils % 0.3 %; Eosinophils % 0.1 %; Hematocrit 39.8 % (37.5-50.1); Hemoglobin 11.8 g/dL (12.9-16.9); Immature Granulocytes % 1.4 % (0-4); Lymphocytes % 7.7 %; Mean Corpuscular HGB Conc 29.6 g/dL (31.6-35.5); Mean Corpuscular Hemoglobin 30.1 pg (28.0-33.3); Mean Corpuscular Volume 101.5 fL (83.0-100.0); Monocytes # 0.2 K/mcL (0.0-1.3); Monocytes % 1.3 %; Neutrophils # 11.4 K/mcL (1.6-8.9); Nucleated Red Blood Cells 0.2 /100 WBC (0); Platelet Count 187 K/mcL (140-400); Red Blood Count 3.92 M/mcL (4.19-5.50); Red Cell Distribution Width 14.2 % (11.5-14.5); Segmented Neutrophils % 89.2 %
--- NOTE | 2019-02-28 14:23 | Emergency Department Note ---
Disposition Clinical Impression: Acute exacerbation of chronic obstructive airways disease Disposition: Still a Patient Forms: ED Satisfaction Letter General Adult HPI - General Chief complaint: ED Shortness of Breath/Dyspnea Stated complaint: ANDREY,needs IV antibotics & steroids Time Seen by Provider: 02/28/19 13:01 Source: patient Mode of arrival: private vehicle Limitations: no limitations Nursing Notes Reviewed: Yes Vital Signs Reviewed: Yes - History of Present Illness HPI Narrative: ED attending attestation note: I examined this patient and my medical decision-making was reviewed with the emergency medicine resident Bre Machado. I agree with the documented findings, disposition and treatment plan as described except to the extent set forth below. Briefly: 58-year-old male history of COPD has recently been treated on 2 different courses of oral antibiotics still having cough sputum fatigue and shortness of breath. He stopped And tachycardic on the grade fever. Bibasilar crackles and wheezes. EKG shows no acute ischemic changes. Patient getting duo nebs will be getting a dose of steroids as per evidence from [place] [facility] patient getting screening labs and anticipated admission. Disposition pending Pain Scale: 4 - Related Data Home Medications Medication Instructions Recorded Confirmed Albuterol Sulfate [Albuterol 2 puff IH Q4H PRN 07/20/17 11/09/17 Inhaler] Atorvastatin Calcium [Lipitor] 20 mg PO HS 07/20/17 11/09/17 Gabapentin [Neurontin] 600 mg PO TID 07/20/17 11/09/17 HYDROcodone/Acet 7.5/325 mg [[place] 1 tab PO Q4-6H PRN 07/20/17 11/09/17 7.5-325 mg] Nitroglycerin [Nitrostat] 0.4 mg SL Q5M PRN 07/20/17 11/09/17 Oxygen 3 l NS CONT 07/20/17 11/09/17 Gemfibrozil [Lopid] 600 mg PO BID 08/01/17 11/09/17 Spironolactone [Aldactone] 25 mg PO DAILY 08/01/17 11/09/17 Ferrous Sulfate [Iron] 325 mg PO BID 11/09/17 11/09/17 Glycopyrrolate/Formoterol Fum 2 puff IH BID 11/09/17 11/09/17 [Bevespi Aerosphere Inhaler] Insulin ASPART [Novolog Flexpen] 5 unit SQ ACHS PRN 11/09/17 11/09/17 Magnesium 250 mg PO DAILY 11/09/17 11/09/17 Vitamin E Acetate [Vitamin E] 400 unit PO DAILY 11/09/17 11/09/17 Previous Rx's Medication Instructions Recorded Clopidogrel [Plavix] 75 mg PO DAILY #30 tablet 12/23/16 Ipratropium/Albuterol Neb [Duoneb] 3 ml IH QIDR #100 inhsol 12/28/16 Midodrine [ProAmatine] 5 mg PO 0800,1200,1700 #90 tablet 08/11/17 Pantoprazole Sodium 40 mg PO DAILY #30 tablet. 08/11/17 Allergies Allergy/AdvReac Type Severity Reaction Status Date / Time No Known Allergies Allergy Verified 11/09/17 09:31 Past Medical History - Past Medical History Medical history: Reports: diabetes, GERD, myocardial infarction, atrial fibrillation, hyperlipidemia, hypertension, coronary artery disease, CHF, COPD Surgical history: Reports: angioplasty/stent, appendectomy Psychiatric history: Reports: no psych history, anxiety - Social History Smoking Status: Current every day smoker Smokeless Tobacco Status: No Alcohol use: Reports: none Drug use: Reports: none Physical Exam - General Limitations: no limitations General appearance: alert Course Vital Signs Temperature 97.5 F L 02/28/19 12:52 Pulse Rate 104 02/28/19 12:52 Respiratory Rate 22 02/28/19 12:52 Blood Pressure 117/76 02/28/19 12:52 O2 Sat by Pulse Oximetry 87 02/28/19 12:52 Temperature 97.5 F L 02/28/19 12:52 Pulse Rate 102 02/28/19 13:07 Respiratory Rate 18 02/28/19 13:28 Blood Pressure 129/88 02/28/19 13:07 O2 Sat by Pulse Oximetry 97 02/28/19 13:28 Oxygen Delivery Oxygen Delivery Nasal Cannula Medical Decision Making - Lab Data Result diagrams: 02/28/19 13:14 Lab Results 02/28/19 02/28/19 02/28/19 Range/Units 13:14 13:14 13:46 Sodium 136 (136-145) mEq/L Potassium 5.9 H (3.5-5.1) mEq/L Chloride 99 (98-107) mEq/L Carbon Dioxide 27 (23-29) mEq/L BUN 32 H (8-23) mg/dL Creatinine 1.59 H (0.70-1.30) mg/dL Est GFR ( Amer) 54 L (> 60) Est GFR (Non-Af Amer) 45 L (> 60) BUN/Creatinine Ratio 20 (6-26) Glucose 331 H (70-105) mg/dL Calculated Osmolality 302 H (280-300) Lactic Acid 3.2 H (0.5-2.2) mmol/L Calcium 9.3 (8.6-10.3) mg/dL Troponin I 0.05 H* (< 0.04) ng/mL Specimen Rejected MCV Delta
[2019-02-28 14:26] LABS: Bilirubin,Urine Negative (Negative); Blood,Urine Negative (Negative); Clarity,Urine Clear (Clear); Color,Urine Yellow (Yellow); Glucose,Urine (UA) 100 mg/dL (Normal); Ketones,Urine Negative (Negative); Leukocyte Esterase,Urine Negative (Negative); Nitrite,Urine Negative (Negative); PH,Urine 6.5 pH Units (5.0-8.0); Protein,Urine 30 mg/dL (Neg-Trace); Specific Gravity,Urine 1.023 (1.010-1.025); Urobilinogen,Urine Normal (Normal)
[2019-02-28 14:30] LABS: Bacteria,Urine None Seen per hpf (None-Few); Hyaline Casts,Urine None Seen per lpf (None-Few); RBC,Urine 0-3 per hpf (0-3); Squamous Epithelial Cell,Urine Many per lpf (None-Few); WBC,Urine 0-3 per hpf (0-3)
[2019-02-28 14:49] LABS: Sperm,Urine Present
[2019-02-28] MEDS ORDERED: 0.9 % Sodium Chloride 1,000 ML IVC ONE (14:52)
[2019-02-28] MEDS ORDERED: Naloxone 0.4 MG/ML INJ IVP PRN (16:17)
[2019-02-28] MEDS ORDERED: Acetaminophen 325 MG TABLET PO PRN (16:17)
[2019-02-28] MEDS ORDERED: Ondansetron 4 MG/2 ML VIAL IVP PRN (16:17)
--- NOTE | 2019-02-28 16:27 | Internal Med History&Physical ---
Date of Encounter: 02/28/19 Time of Encounter: 16:24 Internal Medicine - H&P: HPI Chief complaint: Cough/Dyspnea Admitted From: Emergency Dept Plans for Post Hospital Care: Home History of present illness: Mr. Ruiz is a 58 year old male with history of COPD, systolic heart failure, type 2 diabetes presents with worsening shortness of breath and cough. He states this is progressive last several days. He reports productive cough with brown yellow sputum. He reports subjective fevers and chills. He states nothi ng makes the symptoms better. He states his symptoms have worsened in severity over the last several days. He states the symptoms are present throughout the day. He states he has never had anything like this before. Also reports increased swelling in his lower extremity and in his abdomen. He denies any sick contacts or recent travel. Discussed with patient wishes to be full code. Past Med Surg Social Fam HX - Past Medical History Medical history: diabetes, GERD, myocardial infarction, atrial fibrillation, hyperlipidemia, hypertension, coronary artery disease, CHF, COPD Additional medical history: GOUT Psychiatric history: no psych history, anxiety - Past Surgical History Surgical History: angioplasty/stent, appendectomy Additional surgical history: LUNG BIOPSY, stent times 1 - Social History Smoking Status: Current every day smoker Smokeless Tobacco Status: No Alcohol use: none Drug use: none - Family History Sister Adopted: No Family Member Ethnicity: Non- Living Status: Still Living Hx Family Cardiac Disorders: No Hx Family Respiratory Disorders: No Hx Family Cancer: Yes Hx Family GI Disorders: No Hx Family Endocrine Disorder: No ([place]ke thyroid) Hx Family Neuromuscular Disorders: No Hx Family Neurologic Disorders: No Hx Family HEENT Disorders: No Hx Family Autoimmune Disorders: No Brother Living Status: Still Living Hx Family Cardiac Disorders: Yes Father Living Status: Hx Family Cancer: Yes Mother Living Status: Hx Family Cardiac Disorders: Yes Hx Family Endocrine Disorder: Yes (diabetes) - Additional Family History Additional family history: Patient denies any significant family history. Internal Medicine - H&P: Meds Clopidogrel [Plavix] 75 mg PO DAILY #30 tablet 12/23/16 [Rx] Ipratropium/Albuterol Neb [Duoneb] 3 ml IH QIDR #100 inhsol 12/28/16 [Rx] Albuterol Sulfate [Albuterol Inhaler] 2 puff IH Q4H PRN 07/20/17 [History] Atorvastatin Calcium [Lipitor] 20 mg PO HS 07/20/17 [History] Gabapentin [Neurontin] 600 mg PO TID 07/20/17 [History] HYDROcodone/Acet 7.5/325 mg [[place] 7.5-325 mg] 1 tab PO Q4-6H PRN 07/20/17 [History] Nitroglycerin [Nitrostat] 0.4 mg SL Q5M PRN 07/20/17 [History] Oxygen 3 l NS CONT 07/20/17 [History] Gemfibrozil [Lopid] 600 mg PO BID 08/01/17 [History] Spironolactone [Aldactone] 25 mg PO DAILY 08/01/17 [History] Midodrine [ProAmatine] 5 mg PO 0800,1200,1700 #90 tablet 08/11/17 [Rx] Pantoprazole Sodium 40 mg PO DAILY #30 tablet. 08/11/17 [Rx] Ferrous Sulfate [Iron] 325 mg PO BID 11/09/17 [History] Glycopyrrolate/Formoterol Fum [Bevespi Aerosphere Inhaler] 2 puff IH BID 11/09/17 [History] Insulin ASPART [Novolog Flexpen] 5 unit SQ ACHS PRN 11/09/17 [History] Magnesium 250 mg PO DAILY 11/09/17 [History] Vitamin E Acetate [Vitamin E] 400 unit PO DAILY 11/09/17 [History] Allergy/AdvReac Type Severity Reaction Status Date / Time No Known Allergies Allergy Verified 11/09/17 09:31 All Systems PM: A 10-system review of systems was performed and is negative for pertinent findings except as documented above in the HPI. Review of systems: 10 point review of systems was obtained and negative other than stated below: - Constitutional Constitutional: chills, fever(s) - Cardiovascular Cardiovascular ROS IM: dyspnea, edema, no chest pain - Respiratory Respiratory: cough, dyspnea, chest congestion, excessive phlegm production, change in phlegm color - Constitutional Vitals: Temp Pulse Resp BP Pulse Ox 97.5 F L 102 18 129/88 97 02/28/19 12:52 02/28/19 13:07 02/28/19 13:28 02/28/19 13:07 02/28/19 13:28 General appearance: Present: mild distress (Mild respiratory distress), A&O X 3, answers questions appropriately Exam: . - Head Head exam: Present: atraumatic, normal inspection, normocephalic - Eye Eye exam: Present: EOMI, PERRL - ENT ENT exam: Present: mucous membranes moist - Neck Neck exam general surgery: Present: full ROM, supple. Absent: tenderness - Respiratory Respiratory exam: Present: respiratory distress (mild), rhonchi (Bibasilar), wheezes (Diffuse). Absent: accessory muscle use, rales, tachypnea - Cardiovascular Cardiovascular exam: Present: tachycardia (regular). Absent: gallop, rubs, systolic murmur - GI/Abdominal GI/Abdominal exam: Present: distended (mild), soft. Absent: tenderness - Extremities Exam Extremities exam: Present: pedal edema (2+ lower extremity bilaterally), warm. Absent: cyanotic, tenderness - Neurological Exam Neurological exam: Present: alert, CN II-XII intact, oriented X3, no focal deficits, strengths equal and symetr throughout - Psychiatric Psychiatric exam: Present: normal affect, normal mood - Skin Skin exam: Present: dry, intact, warm Internal Med - H&P Results - Labs CBC & Chem 7: 02/28/19 13:59 02/28/19 13:14 Labs: Short CBC 02/28/19 Range/Units 13:59 WBC 12.8 H (4.3-11.1) K/mcL Hgb 11.8 L (12.9-16.9) g/dL Hct 39.8 (37.5-50.1) % Plt Count 187 (140-400) K/mcL Neutrophils # 11.4 H (1.6-8.9) K/mcL BMP 02/28/19 13:14 Sodium 136 Potassium 5.9 H Chloride 99 Carbon Dioxide 27 BUN 32 H Creatinine 1.59 H Glucose 331 H Calcium 9.3 Cardiac Enzymes 02/28/19 Range/Units 13:14 Troponin I 0.05 H* (< 0.04) ng/mL Urine 02/28/19 Range/Units 14:01 Urine Color Yellow (Yellow) Urine Clarity Clear (Clear) Urine pH 6.5 (5.0-8.0) pH Units Ur Specific [place] 1.023 (1.010-1.025) Urine Protein 30 H (Neg-Trace) mg/dL Urine Glucose (UA) 100 H (Normal) mg/dL - Impressions ITS Impressions Chest X-Ray 02/28/19 13:11 IMPRESSION: Chronic interstitial lung disease. Enlarged main pulmonary artery questioning pulmonary hypertension. D/ / 02/28/2019 13:48:29 Gonzalo Brumfield MD / moe Interpreting Provider: Gonzalo Brumfield MD - Assessment and Plan (1) Severe sepsis Current Visit: Yes Status: Acute Assessment and plan: Patient presents with tachycardia and leukocytosis with presumed source to be pneumonia. He has evidence of end organ damage with an elevated creatinine and lactic acid of 3.2 on presentation. Recheck lactic acid has improved to 2.4. Blood pressure stable. No indication for vasopressors. Visit been drawn. Antibiotics have been initiated. Patient received 1 L of fluids in the emergenc y department. Given his stable blood pressure and known systolic heart failure which he feels in acute exacerbation at this time given his pulmonary edema will hold any further fluid resuscitation, however blood pressure decreases would give more fluid. (2) Community acquired pneumonia Current Visit: No Status: Acute Assessment and plan: Symptomatically patient has evidence of sepsis with leukocytosis and symptomatically appears to have pneumonia was worsening shortness of breath and productive cough. Chest x-ray reviewed and no obvious consolidation noted. No recent healthcare exposure. Treat for community-acquired pneumonia with Rocephin and azithromycin. Check strep and legionella urinary antigens, respiratory infection panel, sputum culture Qualifiers: Laterality: unspecified laterality Qualified Code(s): J18.9 - Pneumonia, unspecified organism (3) Acute exacerbation of chronic obstructive airways disease Current Visit: Yes Status: Acute Assessment and plan: Patient has known underlying COPD appears to be in acute exacerbation with increasing cough and sputum production with wheezing on exam. Secondary to pneumonia as discussed above. Lovell Solu-Medrol 60 mg IV every 6 hours, antibiotics as above, scheduled bronchodilators. Continue supplemental oxygen at home dose. (4) Acute kidney injury Current Visit: Yes Status: Acute Assessment and plan: Creatinine 1.59 on presentation, baseline appears to be less than 1. Likely due to dehydration in the setting of sepsis. Patient received 1 L of fluid in the emergency department. Will not give further IV fluids given the patient's known systolic heart failure and evidence of mild fluid overload at this time. Recheck creatinine this afternoon. (5) Hyperkalemia Current Visit: No Status: Resolved Assessment and plan: Potassium is 5.9 on presentation. EKG reviewed and shows no changes related to hyperkalemia. Likely due to dehydration in the setting of sepsis with ASIM. Patient received 1 dose of Kayexalate. Recheck potassium this evening. Hold spironolactone (6) Acute on chronic systolic (congestive) heart failure Current Visit: No Status: Acute Assessment and plan: Patient has known EF of 45% on last echocardiogram in 2017. Patient have evidence of mild exacerbation with ascites on exam and lower extremity edema. Patient received 1 L of fluids in the emergency department for sepsis, we will hold off on any further fluids this patient is at high risk for pulmonary edema and respiratory failure. Recheck echocardiogram (7) CAD (coronary artery disease) Current Visit: No Status: Acute Assessment and plan: Patient has known coronary artery disease and reports having one stent several years ago. Chest pain-free at this time. EKG reviewed and shows no ischemic changes. Troponin mildly elevated 0.0.4, likely due to demand ischemia in the setting of sepsis. We will trend troponins and check echocardiogram as above Qualifiers: Coronary Disease-Associated Artery/Lesion type: [place] artery [place] vs. transplanted heart: [place] heart Associated angina: without angina Qualified Code(s): I25.10 - Atherosclerotic heart disease of [place] coronary artery without angina pectoris (8) Diabetes Current Visit: No Status: Acute Assessment and plan: Blood sugar mildly elevated on presentation. Patient reports using insulin as needed at home. Start low-dose sliding scale. I suspect that we will need to add more insulin as the patient will be on steroids for COPD exacerbation. Continue monitor and adjust insulin regimen as necessary Qualifiers: Diabetes mellitus type: type 2 Diabetes mellitus emt intermediate insulin use: without emt intermediate use Diabetes mellitus complication status: with unspecified complications Qualified Code(s): E11.8 - Type 2 diabetes mellitus with unspecified complications (9) Chronic respiratory failure Current Visit: Yes Status: Acute Assessment and plan: Patient reports using 3 L of oxygen home. Currently on his home dose and is satting 97%. Continue home dose of oxygen. Qualifiers: Respiratory failure complication: hypoxia Qualified Code(s): J96.11 - Chr onic respiratory failure with hypoxia (10) DVT prophylaxis Current Visit: No Status: Acute Assessment and plan: Heparin 5000 units subcutaneous twice a day - Time Spent With Patient Total time spent is greater than 50% in coordination of care (as documented) at patient's floor/unit and/or counseling patient:
[2019-02-28] MEDS ORDERED: Dextrose Gel 15 GM/37.5 ML TUBE PO PRN ×2 (16:30)
[2019-02-28] MEDS ORDERED: *HR* Dextrose 50 % in Water (Syg) 50 ML SYRINGE IVP PRN (16:30)
[2019-02-28] MEDS ORDERED: D5% in Water 1,000 ML IVC PRN (16:30)
[2019-02-28] MEDS ORDERED: Insulin LISPRO 300 UNITS/3 ML VIAL SQ SCH ×2 (16:30→21:00)
[2019-02-28] MEDS: *HR* Heparin 5,000 UNIT/ML VIAL SQ SCH (19:45)
[2019-02-28] MEDS: methylPREDNISolone 125 MG/2 ML VIAL IVP SCH (19:45)
[2019-02-28 19:52] LABS: Calcium 8.7 mg/dL (8.6-10.3); Potassium 5.8 mEq/L (3.5-5.1)
[2019-02-28] MEDS ORDERED: Ipratropium/Albuterol Neb 3 ML IH SCH (20:00)
[2019-02-28] MEDS: Levalbuterol Neb 1.25 MG/3 ML IH SCH (20:19)
[2019-02-28] MEDS ORDERED: traMADol 50 MG TABLET PO ONE (20:25)
[2019-02-28] MEDS: Insulin LISPRO 300 UNITS/3 ML VIAL SQ SCH (20:30)
[2019-02-28] MEDS ORDERED: Perflutren Lipid Microsphere 1.3 ML in 0.9 % Sodium Chloride 8.7 ML IVP ONE (20:53)
[2019-03-01] MEDS: Levalbuterol Neb 1.25 MG/3 ML IH SCH ×7 (00:11→23:21)
[2019-03-01] MEDS ORDERED: Insulin DETEMIR 100 UNIT/ML X5UNITS SQ ONE (00:35)
[2019-03-01] MEDS: methylPREDNISolone 125 MG/2 ML VIAL IVP SCH ×4 (00:39→17:46)
[2019-03-01 01:52] LABS: Basophils % 0.1 %; Hematocrit 37.7 % (37.5-50.1); Hemoglobin 11.3 g/dL (12.9-16.9); Immature Granulocytes % 1.1 % (0-4); Lymphocytes # 0.6 K/mcL (0.6-4.6); Lymphocytes % 5.9 %; Mean Platelet Volume 11.9 fL (9.4-12.4); Monocytes # 0.2 K/mcL (0.0-1.3); Monocytes % 1.5 %; Neutrophils # 9.2 K/mcL (1.6-8.9); Nucleated Red Blood Cells 0.2 /100 WBC (0); Platelet Count 169 K/mcL (140-400); Red Blood Count 3.77 M/mcL (4.19-5.50); Red Cell Distribution Width 14.1 % (11.5-14.5); Segmented Neutrophils % 91.4 %
[2019-03-01 02:11] LABS: BUN/Creatinine Ratio 30 (6-26); Blood Urea Nitrogen 37 mg/dL (8-23); Calcium 8.6 mg/dL (8.6-10.3); Carbon Dioxide 31 mEq/L (23-29); Chloride 99 mEq/L (98-107); Glucose 338 mg/dL (70-105); Magnesium 1.4 mg/dL (1.6-2.6); Osmolality,Calculated 304 (280-300); Potassium 5.1 mEq/L (3.5-5.1); Sodium 136 mEq/L (136-145); eGFR For Non-African Americans 59 (> 60)
[2019-03-01] MEDS: *HR* Heparin 5,000 UNIT/ML VIAL SQ SCH ×2 (04:31→17:46)
[2019-03-01] MEDS ORDERED: traMADol 50 MG TABLET PO ONE (04:43)
[2019-03-01 05:52] LABS: Adenovirus Not Detected (Not Detect); Bordetella Pertussis Not Detected (Not Detect); Chlamydophila pneumoniae Not Detected (Not Detect); Coronavirus 229E Not Detected (Not Detect); Coronavirus HKU1 Not Detected (Not Detect); Coronavirus NL63 Not Detected (Not Detect); Coronavirus OC43 Not Detected (Not Detect); Human Metapneumovirus Not Detected (Not Detect); Human Rhinovirus/Enterovirus Not Detected (Not Detect); Influenza A Subtype 2009 H1 Not Detected (Not Detect); Influenza A Untypeable Not Detected (Not Detect); Influenza B Not Detected (Not Detect); Mycoplasma pneumoniae Not Detected (Not Detect); Parainfluenza Virus 1 Not Detected (Not Detect); Parainfluenza Virus 2 Not Detected (Not Detect); Parainfluenza Virus 3 Not Detected (Not Detect); Parainfluenza Virus 4 Not Detected (Not Detect); Respiratory Syncytial Virus Not Detected (Not Detect)
[2019-03-01] MEDS: Insulin LISPRO 300 UNITS/3 ML VIAL SQ SCH ×5 (09:03→21:01)
[2019-03-01] MEDS: *HR* HYDROcodone/Acet 5/325 mg TABLET PO PRN ×3 (09:03→20:59)
[2019-03-01] MEDS ORDERED: Furosemide 40 MG/4 ML VIAL IVP ONE (11:01)
--- NOTE | 2019-03-01 12:13 | Internal Med Progress Note ---
<EstebanYadira E - Last Filed: 03/01/19 13:46> Hospitalist Progress Note - Encounter Date of Encounter: 03/01/19 - Subjective Interval History: Mr. Ruiz is a 58-year-old male with history of COPD, systolic heart failure,2 p.m. Presented with worsening shortness of breath and cough that has progressed over the last few days with brown-yellow sputum and fevers and chills Also reported increased swelling in lower extremities and abdomen admitted for severe sepsis from tachycardia, leukocytosis, elevated creatinine, only a lactic acid Today patient states that he is still having some chest pain from cough. He states that his shortness of breath is slightly better. He does state that he is still coughing up yellow to green sputum. - Exam Vitals: Temp Pulse Resp BP Pulse Ox 97.7 F 104 20 115/73 97 03/01/19 11:47 03/01/19 11:47 03/01/19 11:47 03/01/19 11:47 03/01/19 11:47 Exam: General: Awake alert oriented 3, mild distress, answers questions appropriately Head: normocephalic, atraumatic Eyes: CASEY, no icterus Cardio: Regular rate and rhythm, no murmurs rubs or gallops noted Respiratory: End expiratory wheeze noted throughout, soft Rales noted in bilateral lower lobes Abd: normal bowel sounds, no gaurding or rigidity Extremties: 1+ pitting edema bilateral lower extremities, pulses equal bilaterally, warm Skin: warm, dry, intact - Assessment and Plan (1) Severe sepsis Current Visit: Yes Status: Acute Assessment and Plan: Patient presented with tachycardia, leukocytosis, presumed source of pneumonia, elevated creatinine, elevated lactic acid. Recheck of lactic acid had improved Blood pressure stable Cultures pending Patient received 1 L fluids in the ER and this was then discontinued due to known systolic heart failure and blood pressures being stable Patient's white blood cell count has normalized, currently is not tachycardic, creatinine has decreased to 1.25 from 1.58 Sepsis seems to be resolving Antibiotics for community-acquired pneumonia started yesterday Continue to monitor (2) Community acquired pneumonia Current Visit: No Status: Acute Assessment and Plan: Symptomatically appears to have pneumonia with worsening shortness of breath, productive cough of yellow-green sputum Chest x-ray showed no obvious consolidation No recent healthcare exposures An with tachycardia and leukocytosis and evidence of an organ damage including elevated creatinine and lactic acid elevation Leukocytosis is improved, no longer tachycardic Strep and legionella urinary antigens negative Respiratory infection panel negative Sputum culture pending Continue Rocephin and azithromycin for possible community-acquired pneumonia (3) Acute kidney injury Current Visit: Yes Status: Acute Assessment and Plan: Creatinine 1.59 on presentation Today is 1.25 Likely due to dehydration and sepsis 1 L of fluid given in ED No further fluids given due to patient's known heart failure and evidence of mild fluid overload Continue to monitor creatinine (4) Acute exacerbation of chronic obstructive airways disease Current Visit: Yes Status: Acute Assessment and Plan: Patient has history of COPD Acute exacerbation due to pneumonia with increasing cough and sputum production Solu-Medrol 60 mg IV every 6 we will decrease this tomorrow if patient continues to improve Antibiotics as previously stated for community-acquired pneumonia Scheduled bronchodilators Supplemental oxygen at home dose (5) Chronic respiratory failure Current Visit: Yes Status: Chronic Assessment and Plan: Uses 3 L of oxygen at home Currently on home [id number] Continue home dose of oxygen (6) Diabetes Current Visit: No Status: Acute Assessment and Plan: Blood sugar has been elevated Insulin use at home Currently on a high dose sliding scale Adding 10 units of Lantus at night Has increased could be due to use of steroids for COPD exacerbation We will continue to monitor and adjust insulin regimen as necessary (7) Acute on chronic diastolic (congestive) heart failure Current Visit: Yes Status: Acute Assessment and Plan: Patient has known ejection fraction of 45% on last echocardiogram in 2017 New echo shows increased ejection fraction up to 55% with severe pulmonary hypertension Does state he has some mild chest pain with cough EKG was reviewed and showed no ischemic changes Troponin mildly elevated at 0.04 repeat stable Elevation of troponin most likely due to dependent ischemia and increased pulmonary hypertension in the setting of sepsis Doubt new infarction Continue to monitor (8) DVT prophylaxis Current Visit: No Status: Acute Assessment and Plan: Heparin subcutaneous DVT Prophylaxis: Heparin subcutaneous - Time Spent with Patient Total time spent is greater than 50% in coordination of care (as documented) at patient's floor/unit and/or counseling patient: Internal Medicine: Result - Labs CBC & Chem 7: 03/01/19 01:22 03/01/19 01:22 Labs: Short CBC 02/28/19 03/01/19 Range/Units 13:59 01:22 WBC 12.8 H 10.0 (4.3-11.1) K/mcL Hgb 11.8 L 11.3 L (12.9-16.9) g/dL Hct 39.8 37.7 (37.5-50.1) % Plt Count 187 169 (140-400) K/mcL Neutrophils # 11.4 H 9.2 H (1.6-8.9) K/mcL BMP 02/28/19 02/28/19 03/01/19 13:14 19:07 01:22 Sodium 136 132 L 136 Potassium 5.9 H 5.8 H 5.1 Chloride 99 96 L 99 Carbon Dioxide 27 25 31 H BUN 32 H 38 H 37 H Creatinine 1.59 H 1.58 H 1.25 Glucose 331 H 556 H* 338 H Calcium 9.3 8.7 8.6 Cardiac Enzymes 02/28/19 02/28/19 03/01/19 Range/Units 13:14 19:07 01:22 Troponin I 0.05 H* 0.04 H* 0.04 H* (< 0.04) ng/mL Urine 02/28/19 Range/Units 14:01 Urine Color Yellow (Yellow) Urine Clarity Clear (Clear) Urine pH 6.5 (5.0-8.0) pH Units Ur Specific [place] 1.023 (1.010-1.025) Urine Protein 30 H (Neg-Trace) mg/dL Urine Glucose (UA) 100 H (Normal) mg/dL - Impressions Impressions Chest X-Ray 02/28/19 13:11 IMPRESSION: Chronic interstitial lung disease. Enlarged main pulmonary artery questioning pulmonary hypertension. D/ / 02/28/2019 13:48:29 Gonzalo Brumfield MD / [facility] Interpreting Provider: Gonzalo Brumfield MD Echocardiogram 02/28/19 16:22 Impressions: LVEF 55%. Normal LV chamber size, wall thickness and function. Atypical septal motion consistent with bundle branch block. Flattening of the interventricular septum suggestive of RV pressure-volume overload. Moderately dilated and hypokinetic right ventricle. Severe pulmonary hypertension. Estimated RVSP is >70 mmHg. LVEF appears improved compared to prior reports. Left Ventricular Wall Motion: Rest Echo Findings All wall segments showed normal motion. Findings: Study Quality * Technically adequate exam. ECG Findings * Normal sinus rhythm. Left Ventricle * LVEF 55%. * Normal LV chamber size, wall thickness and function. * Atypical septal motion consistent with bundle branch block. * Flattening of the interventricular septum suggestive of RV pressure-volume overload. Right Ventricle * Moderately dilated right ventricle. * Moderate right ventricular hypokinesis. Left Atrium * Mildly dilated left atrium. Right Atrium * Severely dilated right atrium. Aortic Valve * Aortic valve not well visualized. * No aortic regurgitation. * No aortic stenosis. Mitral Valve * Normal mitral valve structure and function. * No mitral stenosis. * Trace mitral regurgitation. Tricuspid Valve * Normal tricuspid valve structure and function. * Trace tricuspid regurgitation. * Severe pulmonary hypertension. * Estimated RVSP is >70 mmHg. * Estimated RA pressure is 5-10 mmHg. Pulmonic Valve * Normal pulmonic valve structure and function. * Trace pulmonic regurgitation. Aorta * Normally sized aortic root. Pericardium * The pericardium appears normal. IVC * The IVC is not dilated. * < 50% respiratory change. Pulmonary Artery * Normal visualized portions of the main pulmonary artery. Consult Discharge Plan - Plan Referrals: Tawanda Chi MD [Primary Care Provider] - (Appointment has been requested.) <Mundo Gonzalez - Last Filed: 03/01/19 14:27> Hospitalist Progress Note - Encounter Date of Encounter: 03/01/19 Time of Encounter: 14:22 - Exam Vitals: Temp Pulse Resp BP Pulse Ox 97.7 F 104 20 115/73 97 03/01/19 11:47 03/01/19 11:47 03/01/19 11:47 03/01/19 11:47 03/01/19 11:47 - Assessment and Plan (1) Severe sepsis Current Visit: Yes Status: Acute (2) Community acquired pneumonia Current Visit: No Status: Acute (3) Acute exacerbation of chronic obstructive airways disease Current Visit: Yes Status: Acute (4) Acute kidney injury Current Visit: Yes Status: Acute (5) Hyperkalemia Current Visit: No Status: Resolved (6) Acute on chronic systolic (congestive) heart failure Current Visit: No Status: Acute (7) CAD (coronary artery disease) Current Visit: No Status: Acute (8) Diabetes Current Visit: No Status: Acute (9) Chronic respiratory failure Current Visit: Yes Status: Chronic (10) DVT prophylaxis Current Visit: No Status: Acute - Time Spent with Patient Total time spent is greater than 50% in coordination of care (as documented) at patient's floor/unit and/or counseling patient: Internal Medicine: Result - Labs CBC & Chem 7: 03/01/19 01:22 03/01/19 01:22 Labs: Short CBC 02/28/19 03/01/19 Range/Units 13:59 01:22 WBC 12.8 H 10.0 (4.3-11.1) K/mcL Hgb 11.8 L 11.3 L (12.9-16.9) g/dL Hct 39.8 37.7 (37.5-50.1) % Plt Count 187 169 (140-400) K/mcL Neutrophils # 11.4 H 9.2 H (1.6-8.9) K/mcL BMP 02/28/19 03/01/19 19:07 01:22 Sodium 132 L 136 Potassium 5.8 H 5.1 Chloride 96 L 99 Carbon Dioxide 25 31 H BUN 38 H 37 H Creatinine 1.58 H 1.25 Glucose 556 H* 338 H Calcium 8.7 8.6 Cardiac Enzymes 02/28/19 03/01/19 Range/Units 19:07 01:22 Troponin I 0.04 H* 0.04 H* (< 0.04) ng/mL Urine 02/28/19 Range/Units 14:01 Urine Color Yellow (Yellow) Urine Clarity Clear (Clear) Urine pH 6.5 (5.0-8.0) pH Units Ur Specific [place] 1.023 (1.010-1.025) Urine Protein 30 H (Neg-Trace) mg/dL Urine Glucose (UA) 100 H (Normal) mg/dL - Impressions Impressions Chest X-Ray 02/28/19 13:11 IMPRESSION: Chronic interstitial lung disease. Enlarged main pulmonary artery questioning pulmonary hypertension. D/ / 02/28/2019 13:48:29 Gonzalo Brumfield MD / [facility] Interpreting Provider: Gonzalo Brumfield MD Echocardiogram 02/28/19 16:22 Impressions: LVEF 55%. Normal LV chamber size, wall thickness and function. Atypical septal motion consistent with bundle branch block. Flattening of the interventricular septum suggestive of RV pressure-volume overload. Moderately dilated and hypokinetic right ventricle. Severe pulmonary hypertension. Estimated RVSP is >70 mmHg. LVEF appears improved compared to prior reports. Left Ventricular Wall Motion: Rest Echo Findings All wall segments showed normal motion. Findings: Study Quality * Technically adequate exam. ECG Findings * Normal sinus rhythm. Left Ventricle * LVEF 55%. * Normal LV chamber size, wall thickness and function. * Atypical septal motion consistent with bundle branch block. * Flattening of the interventricular septum suggestive of RV pressure-volume overload. Right Ventricle * Moderately dilated right ventricle. * Moderate right ventricular hypokinesis. Left Atrium * Mildly dilated left atrium. Right Atrium * Severely dilated right atrium. Aortic Valve * Aortic valve not well visualized. * No aortic regurgitation. * No aortic stenosis. Mitral Valve * Normal mitral valve structure and function. * No mitral stenosis. * Trace mitral regurgitation. Tricuspid Valve * Normal tricuspid valve structure and function. * Trace tricuspid regurgitation. * Severe pulmonary hypertension. * Estimated RVSP is >70 mmHg. * Estimated RA pressure is 5-10 mmHg. Pulmonic Valve * Normal pulmonic valve structure and function. * Trace pulmonic regurgitation. Aorta * Normally sized aortic root. Pericardium * The pericardium appears normal. IVC * The IVC is not dilated. * < 50% respiratory change. Pulmonary Artery * Normal visualized portions of the main pulmonary artery. - Attending Attestation I examined this patient and my medical decision-making was reviewed with the Resident Physician. I agree with the documented findings, disposition and treatment plan as described except to the extent set forth below. Patient seen and examined at bedside. Patient states he feels slightly better today. He feels that his breathing is improved and his cough has lessened. Denies any chest pain. On exam he still has diffuse bilateral wheezes however they do sound less severe. Trace pitting edema to lower extremity bilaterally which is improved from yesterday. Severe sepsis: Much improved at this time, clinically improving, white blood cell count normalized. Pneumonia: Community-acquired, continue Rocephin and Zithromax Acute on chronic systolic heart failure: Appears to have resolved as repeat echo obtained this admission shows his EF is normalized. Pulmonary hypertension, noted to be severe: Likely group 3. Patient will need close outpatient follow-up. 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 transplanted heart: [place] heart Associated angina: without angina Qualified Code(s): I25.10 - Atherosclerotic heart disease of [place] coronary artery without angina pectoris (8) Diabetes Qualifiers: Diabetes mellitus type: type 2 Diabetes mellitus assisted insulin use: without termite technician use Diabetes mellitus complication status: with unspecified complications Qualified Code(s): E11.8 - Type 2 diabetes mellitus with unspecified complications (9) Chronic respiratory failure Qualifiers: Respiratory failure complication: hypoxia Qualified Code(s): J96.11 - Chronic respiratory failure with hypoxia
[2019-03-01] MEDS: cefTRIAXone 2,000 MG in Water for inj. (sterile) 20 ML 20 ML IVP SCH (12:39)
[2019-03-01] MEDS: Azithromycin 500 MG in D5% in Water 250 ML IVPB SCH (12:42)
[2019-03-01] MEDS: Magnesium Oxide 400 MG TABLET PO SCH (20:59)
[2019-03-01] MEDS: Pregabalin 50 MG CAPSULE PO SCH (20:59)
[2019-03-01] MEDS ORDERED: (Glycopyrrolate/Formoterol Fum [Bevespi Aerosphere In IH SCH (22:00)
--- NOTE | 2019-03-01 23:19 | Electrocardiograph Report ---
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
[2019-03-02] MEDS: methylPREDNISolone 125 MG/2 ML VIAL IVP SCH ×4 (00:16→16:57)
[2019-03-02 02:20] LABS: Basophils % 0.1 %; Hematocrit 37.1 % (37.5-50.1); Hemoglobin 11.1 g/dL (12.9-16.9); Immature Granulocytes % 0.6 % (0-4); Lymphocytes # 0.6 K/mcL (0.6-4.6); Mean Corpuscular HGB Conc 29.9 g/dL (31.6-35.5); Mean Corpuscular Hemoglobin 29.8 pg (28.0-33.3); Mean Corpuscular Volume 99.7 fL (83.0-100.0); Mean Platelet Volume 11.7 fL (9.4-12.4); Monocytes # 0.4 K/mcL (0.0-1.3); Monocytes % 2.7 %; Neutrophils # 14.6 K/mcL (1.6-8.9); Nucleated Red Blood Cells 0.5 /100 WBC (0); Platelet Count 159 K/mcL (140-400); Red Blood Count 3.72 M/mcL (4.19-5.50); Red Cell Distribution Width 14.3 % (11.5-14.5); Segmented Neutrophils % 92.6 %
[2019-03-02 02:30] LABS: BUN/Creatinine Ratio 33 (6-26); Blood Urea Nitrogen 34 mg/dL (8-23); Calcium 8.5 mg/dL (8.6-10.3); Carbon Dioxide 34 mEq/L (23-29); Chloride 101 mEq/L (98-107); Glucose 132 mg/dL (70-105); Osmolality,Calculated 295 (280-300); Potassium 4.3 mEq/L (3.5-5.1); Sodium 138 mEq/L (136-145); eGFR For Non-African Americans > 60 (> 60)
[2019-03-02] MEDS: Levalbuterol Neb 1.25 MG/3 ML IH SCH ×5 (03:45→19:55)
[2019-03-02] MEDS: *HR* Heparin 5,000 UNIT/ML VIAL SQ SCH ×2 (04:55→16:56)
[2019-03-02] MEDS: *HR* HYDROcodone/Acet 5/325 mg TABLET PO PRN ×3 (04:58→16:56)
--- NOTE | 2019-03-02 08:44 | Internal Med Progress Note ---
<Yadira Orellana E - Last Filed: 03/02/19 14:33> Hospitalist Progress Note - Encounter Date of Encounter: 03/02/19 Time of Encounter: 09:00 - Subjective Interval History: Mr. Ruiz is a 58-year-old male with history of COPD, systolic heart failure,2 p.m. Presented with worsening shortness of breath and cough that has progressed over the last few days with brown-yellow sputum and fevers and chills Also reported increased swelling in lower extremities and abdomen admitted for severe sepsis from tachycardia, leukocytosis, elevated creatinine, only a lactic acid Today patient state hs is feeling better, he has less shortness of breath and decreased chest pain. Has not had a productive cough today. Denies chest pain, worsened shortness of breath, abdominal pain, n/v/d. - Exam Vitals: Temp Pulse Resp BP Pulse Ox 98.0 F 97 20 122/81 95 03/02/19 07:16 03/02/19 07:16 03/02/19 07:16 03/02/19 07:16 03/02/19 07:16 Exam: General: Awake alert oriented 3, mild distress, answers questions appropriately Head: normocephalic, atraumatic Eyes: CASEY, no icterus Cardio: Regular rate and rhythm, no murmurs rubs or gallops noted Respiratory: End expiratory wheeze noted, no rales, rhonchi Abd: normal bowel sounds, no gaurding or rigidity Extremties: 1+ pitting edema bilateral lower extremities, pulses equal bilaterally, warm Skin: warm, dry, intact - Assessment and Plan (1) Severe sepsis Current Visit: Yes Status: Acute Assessment and Plan: Patient presented with tachycardia, leukocytosis, presumed source of pneumonia, elevated creatinine, elevated lactic acid. Recheck of lactic acid had improved Blood pressure stable Cultures pending Patient received 1 L fluids in the ER and this was then discontinued due to known systolic heart failure and blood pressures being stable Patient's white blood cell count has normalized, currently is not tachycardic, creatinine has decreased to 1.25 from 1.58 Sepsis seems to be resolving Antibiotics for community-acquired pneumonia day 3 Continue to monitor (2) Community acquired pneumonia Current Visit: No Status: Acute Assessment and Plan: Symptomatically appears to have pneumonia with worsening shortness of breath, productive cough of yellow-green sputum Chest x-ray showed no obvious consolidation No recent healthcare exposures An with tachycardia and leukocytosis and evidence of an organ damage including elevated creatinine and lactic acid elevation Leukocytosis is improved, no longer tachycardic Strep and legionella urinary antigens negative Respiratory infection panel negative Sputum culture pending Continue Rocephin and azithromycin for possible community-acquired pneumonia (3) Acute kidney injury Current Visit: Yes Status: Acute Assessment and Plan: Creatinine 1.59 on presentation Today is 1.02 Likely due to dehydration and sepsis 1 L of fluid given in ED No further fluids given due to patient's known heart failure and evidence of mild fluid overload Normalizing Continue to monitor creatinine (4) Acute exacerbation of chronic obstructive airways disease Current Visit: Yes Status: Acute Assessment and Plan: Patient has history of COPD Acute exacerbation due to pneumonia with increasing cough and sputum production Solu-Medrol 60 mg IV every 8hours we will decrease this tomorrow if patient continues to improve Antibiotics as previously stated for community-acquired pneumonia Scheduled bronchodilators Supplemental oxygen at home dose incentive spirometry (5) Chronic respiratory failure Current Visit: Yes Status: Chronic Assessment and Plan: Uses 3 L of oxygen at home Currently on 4L nc titrate to home dose of Oxygen incentive spirometry (6) Diabetes Current Visit: No Status: Acute Assessment and Plan: currently controlled Insulin use at home Currently on a high dose sliding scale 10 units of lantus at night We will continue to monitor and adjust insulin regimen as necessary (7) Acute on chronic diastolic (congestive) heart failure Current Visit: Yes Status: Acute Assessment and Plan: Patient has known ejection fraction of 45% on last echocardiogram in 2017 New echo shows increased ejection fraction up to 55% with severe pulmonary hyper tension EKG was reviewed and showed no ischemic changes Troponin mildly elevated at 0.04 repeat stable Elevation of troponin most likely due to dependent ischemia and increased pulmonary hypertension in the setting of sepsis Doubt new infarction Continue to monitor (8) DVT prophylaxis Current Visit: No Status: Acute Assessment and Plan: heparin subcutaneous DVT Prophylaxis: Heparin subcutaneous - Time Spent with Patient Total time spent is greater than 50% in coordination of care (as documented) at patient's floor/unit and/or counseling patient: Internal Medicine: Result - Labs CBC & Chem 7: 03/02/19 01:01 03/02/19 01:01 Labs: Short CBC 03/02/19 Range/Units 01:01 WBC 15.8 H D (4.3-11.1) K/mcL Hgb 11.1 L (12.9-16.9) g/dL Hct 37.1 L (37.5-50.1) % Plt Count 159 (140-400) K/mcL Neutrophils # 14.6 H (1.6-8.9) K/mcL BMP 03/02/19 01:01 Sodium 138 Potassium 4.3 Chloride 101 Carbon Dioxide 34 H BUN 34 H Creatinine 1.02 Glucose 132 H Calcium 8.5 L - Impressions Impressions Echocardiogram 02/28/19 16:22 Impressions: LVEF 55%. Normal LV chamber size, wall thickness and function. Atypical septal motion consistent with bundle branch block. Flattening of the interventricular septum suggestive of RV pressure-volume overload. Moderately dilated and hypokinetic right ventricle. Severe pulmonary hypertension. Estimated RVSP is >70 mmHg. LVEF appears improved compared to prior reports. Left Ventricular Wall Motion: Rest Echo Findings All wall segments showed normal motion. Findings: Study Quality * Technically adequate exam. ECG Findings * Normal sinus rhythm. Left Ventricle * LVEF 55%. * Normal LV chamber size, wall thickness and function. * Atypical septal motion consistent with bundle branch block. * Flattening of the interventricular septum suggestive of RV pressure-volume overload. Right Ventricle * Moderately dilated right ventricle. * Moderate right ventricular hypokinesis. Left Atrium * Mildly dilated left atrium. Right Atrium * Severely dilated right atrium. Aortic Valve * Aortic valve not well visualized. * No aortic regurgitation. * No aortic stenosis. Mitral Valve * Normal mitral valve structure and function. * No mitral stenosis. * Trace mitral regurgitation. Tricuspid Valve * Normal tricuspid valve structure and function. * Trace tricuspid regurgitation. * Severe pulmonary hypertension. * Estimated RVSP is >70 mmHg. * Estimated RA pressure is 5-10 mmHg. Pulmonic Valve * Normal pulmonic valve structure and function. * Trace pulmonic regurgitation. Aorta * Normally sized aortic root. Pericardium * The pericardium appears normal. IVC * The IVC is not dilated. * < 50% respiratory change. Pulmonary Artery * Normal visualized portions of the main pulmonary artery. Consult Discharge Plan - Plan Referrals: Tawanda Chi MD [Primary Care Provider] - (Appointment has been requested.) <Mundo Gonzalez - Last Filed: 03/02/19 14:41> Hospitalist Progress Note - Encounter Date of Encounter: 03/02/19 - Exam Vitals: Temp Pulse Resp BP Pulse Ox 97.6 F 99 17 134/84 100 03/02/19 11:10 03/02/19 11:10 03/02/19 11:25 03/02/19 11:10 03/02/19 11:25 - Assessment and Plan (1) Severe sepsis Current Visit: Yes Status: Acute (2) Community acquired pneumonia Current Visit: No Status: Acute (3) Acute exacerbation of chronic obstructive airways disease Current Visit: Yes Status: Acute (4) Acute kidney injury Current Visit: Yes Status: Acute (5) Hyperkalemia Current Visit: No Status: Resolved (6) Acute on chronic systolic (congestive) heart failure Current Visit: No Status: Acute (7) CAD (coronary artery disease) Current Visit: No Status: Acute (8) Diabetes Current Visit: No Status: Acute (9) Chronic respiratory failure Current Visit: Yes Status: Chronic (10) DVT prophylaxis Current Visit: No Status: Acute - Time Spent with Patient Total time spent is greater than 50% in coordination of care (as documented) at patient's floor/unit and/or counseling patient: Internal Medicine: Result - Labs CBC & Chem 7: 03/02/19 01:01 03/02/19 01:01 Labs: Short CBC 03/02/19 Range/Units 01:01 WBC 15.8 H D (4.3-11.1) K/mcL Hgb 11.1 L (12.9-16.9) g/dL Hct 37.1 L (37.5-50.1) % Plt Count 159 (140-400) K/mcL Neutrophils # 14.6 H (1.6-8.9) K/mcL BMP 03/02/19 01:01 Sodium 138 Potassium 4.3 Chloride 101 Carbon Dioxide 34 H BUN 34 H Creatinine 1.02 Glucose 132 H Calcium 8.5 L - Attending Attestation I examined this patient and my medical decision-making was reviewed with the Resident Physician. I agree with the documented findings, disposition and treatment plan as described except to the extent set forth below. Patient seen and examined at bedside. He states that his shortness of breath is improved. His cough is also improved. He denies any chest pain, fever, chills. On exam lungs are diminished in bases bilaterally, wheezes bilaterally, heart is regular rate and rhythm, 1+ lower extremity edema is present. Pneumonia: Patient continues to improve, continue azithromycin and ceftriaxone COPD exacerbation: Patient still noted to have wheezes bilaterally but appear improved from yesterday. Decrease Solu-Medrol from 60 mg IV every 6-60 mg IV every 8. Acute on chronic diastolic heart failure: On exam patient appears mildly fluid overloaded and reports mild shortness of breath that is still present, though improved, will give one-time dose of IV Lasix 40mg today, gauge response tomorrow and reassess need for further diuresis <Yadira Orellana - Last Filed: 03/02/19 14:33> (2) Community acquired pneumonia Qualifiers: Laterality: unspecified laterality Qualified Code(s): J18.9 - Pneumonia, unspecified organism (5) Chronic respiratory failure Qualifiers: Respiratory failure complication: hypoxia Qualified Code(s): J96.11 - Chronic respiratory failure with hypoxia (6) Diabetes Qualifiers: Diabetes mellitus type: type 2 Diabetes mellitus jail insulin use: without emt intermediate use Diabetes mellitus complication status: with unspecified complications Qualified Code(s): E11.8 - Type 2 diabetes mellitus with unspecified complications <Mundo Gonzalez G - Last Filed: 03/02/19 14:41> (2) Community acquired pneumonia Qualifiers: Laterality: unspecified laterality Qualified Code(s): J18.9 - Pneumonia, unspecified organism (7) CAD (coronary artery disease) Qualifiers: Coronary Disease-Associated Artery/Lesion type: [place] artery [place] vs. transplanted heart: [place] heart Associated angina: without angina Qualified Code(s): I25.10 - Atherosclerotic heart disease of [place] coronary artery without angina pectoris (8) Diabetes Qualifiers: Diabetes mellitus type: type 2 Diabetes mellitus emt intermediate insulin use: w ithout jail use Diabetes mellitus complication status: with unspecified complications Qualified Code(s): E11.8 - Type 2 diabetes mellitus with unspecified complications (9) Chronic respiratory failure Qualifiers: Respiratory failure complication: hypoxia Qualified Code(s): J96.11 - Chronic respiratory failure with hypoxia
[2019-03-02] MEDS: Pregabalin 50 MG CAPSULE PO SCH ×2 (09:35→20:14)
[2019-03-02] MEDS: Insulin LISPRO 300 UNITS/3 ML VIAL SQ SCH ×4 (09:35→20:13)
[2019-03-02] MEDS: Magnesium Oxide 400 MG TABLET PO SCH ×2 (09:35→20:14)
[2019-03-02] MEDS ORDERED: Furosemide 40 MG/4 ML VIAL IVP ONE (11:40)
[2019-03-02] MEDS: cefTRIAXone 2,000 MG in Water for inj. (sterile) 20 ML 20 ML IVP SCH (13:55)
[2019-03-02] MEDS: Azithromycin 500 MG in D5% in Water 250 ML IVPB SCH (13:56)
[2019-03-03] MEDS: methylPREDNISolone 125 MG/2 ML VIAL IVP SCH ×2 (00:06→10:10)
[2019-03-03] MEDS: *HR* HYDROcodone/Acet 5/325 mg TABLET PO PRN ×3 (00:08→10:20)
[2019-03-03] MEDS: Levalbuterol Neb 1.25 MG/3 ML IH SCH ×4 (00:20→11:19)
[2019-03-03] MEDS: *HR* Heparin 5,000 UNIT/ML VIAL SQ SCH (06:01)
[2019-03-03 07:14] VITALS: BP 129/81
[2019-03-03 07:23] LABS: Basophils % 0.2 %; Hematocrit 37.5 % (37.5-50.1); Hemoglobin 11.4 g/dL (12.9-16.9); Lymphocytes # 0.4 K/mcL (0.6-4.6); Lymphocytes % 2.3 %; Mean Corpuscular HGB Conc 30.4 g/dL (31.6-35.5); Mean Corpuscular Hemoglobin 29.8 pg (28.0-33.3); Mean Corpuscular Volume 97.9 fL (83.0-100.0); Monocytes # 0.4 K/mcL (0.0-1.3); Monocytes % 2.1 %; Neutrophils # 15.5 K/mcL (1.6-8.9); Nucleated Red Blood Cells 0.4 /100 WBC (0); Platelet Count 156 K/mcL (140-400); Red Blood Count 3.83 M/mcL (4.19-5.50); Red Cell Distribution Width 14.4 % (11.5-14.5); Segmented Neutrophils % 94.4 %
[2019-03-03 08:26] LABS: BUN/Creatinine Ratio 37 (6-26); Blood Urea Nitrogen 35 mg/dL (8-23); Calcium 8.7 mg/dL (8.6-10.3); Carbon Dioxide 34 mEq/L (23-29); Chloride 98 mEq/L (98-107); Glucose 270 mg/dL (70-105); Osmolality,Calculated 310 (280-300); Potassium 4.4 mEq/L (3.5-5.1); Sodium 141 mEq/L (136-145); eGFR For Non-African Americans > 60 (> 60)
--- NOTE | 2019-03-03 10:07 | Discharge Summary ---
<Yadira Orellana E - Last Filed: 03/03/19 11:02> Orders not resulted at time of discharge: Pending orders 02/28/19 13:23 Culture,Blood [BC] Stat Date of Encounter: 03/03/19 Time of Encounter: 08:20 - Discharge Diagnosis (1) Severe sepsis Priority: Primary Status: Resolved (2) Community acquired pneumonia Priority: Primary Status: Acute Qualifiers: Laterality: unspecified laterality Qualified Code(s): J18.9 - Pneumonia, unspecified organism (3) Acute kidney injury Priority: Primary Status: Resolved (4) Acute exacerbation of chronic obstructive airways disease Priority: Primary Status: Acute (5) Chronic respiratory failure Priority: Secondary Status: Chronic Qualifiers: Respiratory failure complication: hypoxia Qualified Code(s): J96.11 - Chronic respiratory failure with hypoxia (6) Diabetes Priority: Secondary Status: Acute Qualifiers: Diabetes mellitus type: type 2 Diabetes mellitus retirement insulin use: without keno terminal operator use Diabetes mellitus complication status: with unspecified complications Qualified Code(s): E11.8 - Type 2 diabetes mellitus with unspecified complications (7) Acute on chronic diastolic (congestive) heart failure Priority: Primary Status: Acute (8) DVT prophylaxis Priority: Secondary Status: Acute Hospital course: Mr. Ruiz is a 58-year-old male with history of COPD, systolic heart failure,2 p.m. Presented with worsening shortness of breath and cough that has progressed over the last few days with brown-yellow sputum and fevers and chills Also reported increased swelling in lower extremities and abdomen admitted for severe sepsis from tachycardia, leukocytosis, elevated creatinine, elevated lactic acid, CHF as observation, COPD exacerbation, community-acquired pneumonia Patient was treated with Levaquin, Rocephin, azithromycin, Solu-Medrol, Xopenex, and oneof IV Lasix. His spironolactone was stopped due to hyperkalemia. His shortness of breath improved along with his cough. Swelling of lower extremities and abdomen resolved. Heart rate normalized, kidney function returned to normal. Patient will be discharged home with milligrams of Lasix daily, azithromycin for a total of 5 days of treatment, Ceftin for a total of 7 days of treatment, and a 2 week taper of prednisone. Today patient state he is feeling better, he has less shortness of breath and decreased chest pain. Has not had a productive cough today. Denies chest pain, worsened shortness of breath, abdominal pain, n/v/d. Discharge discussed with: patient - Time Spent with Patient Total time spent providing and/or coordinating discharge services: - Discharge Medications Prescriptions: New Azithromycin 250 mg PO DAILY #2 tablet Cefuroxime PO [Ceftin] 500 mg PO Q12HR #8 tablet Furosemide [Lasix] 20 mg PO DAILY #30 tablet predniSONE [PredniSONE] 10 mg PO TAPER #30 tablet Continued Clopidogrel [Plavix] 75 mg PO DAILY #30 tablet Nitroglycerin [Nitrostat] 0.4 mg SL Q5M PRN PRN Reason: Chest Pain Atorvastatin Calcium [Lipitor] 20 mg PO HS Albuterol Sulfate [Albuterol Inhaler] 2 puff IH Q4H PRN PRN Reason: Shortness Of Breath Gemfibrozil [Lopid] 600 mg PO BID Pantoprazole Sodium 40 mg PO DAILY #30 tablet.dr Glycopyrrolate/Formoterol Fum [Bevespi Aerosphere Inhaler] 2 puff IH BID Ferrous Sulfate [Iron] 325 mg PO BID Magnesium 250 mg PO BID Vitamin E Acetate [Vitamin E] 400 unit PO BID HYDROcodone/Acet 10/325 mg [[place] 10-325 mg] 1 tab PO Q6HR PRN PRN Reason: Pain Insulin LISPRO [Humalog Kwikpen U-100] 0 unit SQ TIDAC PRN PRN Reason: PER SLIDING SCALE Ipratropium/Albuterol Sulfate [Iprat-Albut 0.5-3(2.5) mg/3 ml] 3 ml IH QID PRN PRN Reason: Shortness Of Breath Metformin HCl 1,000 mg PO BID Midodrine [ProAmatine] 5 mg PO DAILY Pregabalin [Lyrica] 50 mg PO BID Discontinued Spironolactone [Aldactone] 25 mg PO BID levoFLOXacin [Levofloxacin] 750 mg PO DAILY Home Medications: Clopidogrel [Plavix] 75 mg PO DAILY #30 tablet 12/23/16 [Rx] Albuterol Sulfate [Albuterol Inhaler] 2 puff IH Q4H PRN 07/20/17 [History] Atorvastatin Calcium [Lipitor] 20 mg PO HS 07/20/17 [History] Nitroglycerin [Nitrostat] 0.4 mg SL Q5M PRN 07/20/17 [History] Gemfibrozil [Lopid] 600 mg PO BID 08/01/17 [History] Pantoprazole Sodium 40 mg PO DAILY #30 tablet. 08/11/17 [Rx] Ferrous Sulfate [Iron] 325 mg PO BID 11/09/17 [History] Glycopyrrolate/Formoterol Fum [Bevespi Aerosphere Inhaler] 2 puff IH BID 11/09/17 [History] Magnesium 250 mg PO BID 11/09/17 [History] Vitamin E Acetate [Vitamin E] 400 unit PO BID 11/09/17 [History] HYDROcodone/Acet 10/325 mg [[place] 10-325 mg] 1 tab PO Q6HR PRN 02/28/19 [History] Insulin LISPRO [Humalog Kwikpen U-100] 0 unit SQ TIDAC PRN 02/28/19 [History] Ipratropium/Albuterol Sulfate [Iprat-Albut 0.5-3(2.5) mg/3 ml] 3 ml IH QID PRN 02/28/19 [History] Metformin HCl 1,000 mg PO BID 02/28/19 [History] Midodrine [ProAmatine] 5 mg PO DAILY 02/28/19 [History] Pregabalin [Lyrica] 50 mg PO BID 02/28/19 [History] Azithromycin 250 mg PO DAILY #2 tablet 03/03/19 [Rx] Cefuroxime PO [Ceftin] 500 mg PO Q12HR #8 tablet 03/03/19 [Rx] Furosemide [Lasix] 20 mg PO DAILY #30 tablet 03/03/19 [Rx] predniSONE [PredniSONE] 10 mg PO TAPER #30 tablet 03/03/19 [Rx] Allergies/Adverse Reactions: Allergy/AdvReac Type Severity Reaction Status Date / Time No Known Allergies Allergy Verified 02/28/19 21:37 Date of admission: 02/28/19 17:45 Primary care physician: Tawanda Chi MD Consults: 03/01/19 10:00 Consult to Nurse Navigator [CONS] Routine Comment: PNEUMONIA, COPD, CHF Discharging clinician: Mundo Gonzalez Anticipated date of discharge: 03/03/19 - Constitutional Vitals: Temp Pulse Resp BP Pulse Ox 98.4 F 91 18 129/81 99 03/03/19 07:13 03/03/19 07:13 03/03/19 08:15 03/03/19 07:13 03/03/19 08:15 General appearance: Present: mild distress (Mild respiratory distress), A&O X 3, answers questions appropriately Exam: General: Awake alert oriented 3, mild distress, answers questions appropriately Head: normocephalic, atraumatic Eyes: CASEY, no icterus Cardio: Regular rate and rhythm, no murmurs rubs or gallops noted Respiratory: End expiratory wheeze noted, no rales, rhonchi Abd: normal bowel sounds, no gaurding or rigidity Extremties: No edema, pulses equal bilaterally, warm Skin: warm, dry, intact - Patient Status Disposition: Home, Self-Care Condition: Good Functional capacity at discharge: independent ambulation Overall status at discharge: patient is progressing back to baseline - Discharge Instructions Instructions: Cefuroxime (By mouth), Furosemide (By mouth), Prednisone (By mouth), Azithromycin (By mouth), Heart Failure (DC), Chronic Obstructive Pul monary Disease (DC), Community-acquired Pneumonia (DC) Follow Up With: Tawanda Chi MD [Primary Care Provider] - (Appointment has been requested.) Additional Instructions: Start taking Lasix 20 mg by mouth daily Take all antibiotics as prescribed until finished Take Prednisone as prescribed Follow-up with your primary care physician as scheduled If you have signs of worsening shortness of breath, chest pain, fever/chills please return to the ED - Diet and Activity Activity: increase activity as tolerated Diet: advance to your usual diet <Mundo Gonzalez - Last Filed: 03/03/19 15:12> Orders not resulted at time of discharge: Pending orders 02/28/19 13:23 Culture,Blood [] Stat Date of Encounter: 03/03/19 - Discharge Diagnosis (1) Severe sepsis Status: Resolved (2) Community acquired pneumonia Status: Acute Qualifiers: Laterality: unspecified laterality Qualified Code(s): J18.9 - Pneumonia, unspecified organism (3) Acute exacerbation of chronic obstructive airways disease Status: Acute (4) Acute kidney injury Status: Resolved (5) Hyperkalemia Status: Resolved (6) Acute on chronic systolic (congestive) heart failure Status: Acute (7) CAD (coronary artery disease) Status: Acute Qualifiers: Coronary Disease-Associated Artery/Lesion type: [place] artery [place] vs. transplanted heart: [place] heart Associated angina: without angina Qualified Code(s): I25.10 - Atherosclerotic heart disease of [place] coronary artery without angina pectoris (8) Diabetes Status: Acute Qualifiers: Diabetes mellitus type: type 2 Diabetes mellitus retirement insulin use: without retirement use Diabetes mellitus complication status: with unspecified complications Qualified Code(s): E11.8 - Type 2 diabetes mellitus with unspecified complications (9) Chronic respiratory failure Status: Chronic Qualifiers: Respiratory failure complication: hypoxia Qualified Code(s): J96.11 - [employer] orquidea respiratory failure with hypoxia (10) DVT prophylaxis Status: Acute Hospital course: Mr. Ruiz is a 58 year old male - Time Spent with Patient Total time spent providing and/or coordinating discharge services: Date of admission: 02/28/19 17:45 Primary care physician: Tawanda Chi MD Consults: 03/01/19 10:00 Consult to Nurse Navigator [CONS] Routine Comment: PNEUMONIA, COPD, CHF - Constitutional Vitals: Temp Pulse Resp BP Pulse Ox 98.4 F 91 16 129/81 99 03/03/19 07:13 03/03/19 07:13 03/03/19 11:19 03/03/19 07:13 03/03/19 11:19 - Attending Attestation I examined this patient and my medical decision-making was reviewed with the Resident Physician. I agree with the documented findings, disposition and treatment plan as described except to the extent set forth below. Patient seen and examined at bedside. He states he feels much better. He feels his shortness of breath is resolved. He reports mild dry cough. On exam he has only rare scattered wheezes. Lungs are regular rate and rhythm, no lower extremity edema is appreciated Patient is stable for discharge. Will be discharged home to complete a seven- day course of azithromycin and cefuroxime. Patient presented with hyperkalemia and therefore will hold spironolactone and instructed Lasix 20 mg by mouth daily for him to continue to take at home. Encourage close outpatient follow-up.
[2019-03-03] MEDS: Insulin LISPRO 300 UNITS/3 ML VIAL SQ SCH (10:09)
[2019-03-03] MEDS: Magnesium Oxide 400 MG TABLET PO SCH (10:10)
[2019-03-03] MEDS: Pregabalin 50 MG CAPSULE PO SCH (10:10)
== END 2019-03-03 13:05 | disposition home or self-care (01) | DRG 871 ==
LOC: 3BNU 12:47 → EMEROOARM 12:47 → SUATTDRO 17:45 → 3BNU 18:50
PROVIDERS: ADMIT Student in an Organized Health Care Education/Training Program; ATTEND Internal Medicine

== ENCOUNTER 2019-03-28 18:58 | Inpatient (IN) ==
--- NOTE | 2019-03-29 | Internal Med History&Physical ---
<Flaquito Hartley - Last Filed: 03/29/19 02:36> Date of Encounter: 03/29/19 Time of Encounter: 23:58 Internal Medicine - H&P: HPI Chief complaint: Shortness of breath and fatigue Admitted From: Emergency Dept History of present illness: Mr. Ruiz is a 58 year old male with past medical history significant for COPD, CHF, pulmonary hypertension, CAD status post stent in 2017, atrial fibrillation and diabetes mellitus type 2. Patient is a transfer patient from [place] ER with a diagnosis of acute respiratory failure, pneumonia and ASIM. On arrival to [facility], patient is slightly somnolent, however is easily arousable and able to answer questions, he does not recall most of the events, and is overall a poor historian however he does state that he has had generalized fatigue and weakness for the past 2 weeks progressively worse with generalized shortness of rest. He states that his shortness of b reath is worse with any type of exertion, he denies any chest pain. States that he has had a cough with chowdhury sputum, unchanged from his baseline, with no fever or chills. He states he has generalized weakness, no focal weakness, no lightheaded or dizziness. He denies any new numbness or tingling. He denies any recent trauma or fall. He denies abdominal pain, nausea or vomiting. He states that he has been urinating. He denies urinary symptoms. Patient states that today he did feel confused, however he does not recall most of the events that led up to his arrival to the ER in [place]. He states that when his right returned home, she stated that he seemed more confused than usual, and brought him to the ER. His is not at bedside for further history. Further chart review provided further history. According to ER documentation, the patient was found to be hyperglycemic when the patient's returned home, was given a total of 14 units of insulin, with repeat glucose being in the 180s. She also had admitted to [facility] an opioid pain medication prior to her le aving the house, and when she arrived back home, he seemed to be very tired and somnolent. She she stated that the patient does not have access to his medications. Patient denies taking any other further medications. She denied any trauma or signs of fall. Per ER documentation, when the patient arrived he had a GCS of 10, however was responsive and arousable, he was tachycardic and tachypneic with hypoxia. Patient does wear 3 L nasal cannula at home, when he arrived to the ER he was placed on 5 L nasal cannula and satting at 86%. As the patient continued with respiratory distress he was started on BiPAP. Patient did not have a leukocytosis with a white blood cell count of 8.5, he was found to be in respiratory acidosis with a pH of 7.16, a PCO2 of 107, with an HCO3 of 38. On BiPAP, the patient pH increased to 7.22 and PCO2 of 90. Serum creatinine was 1.46, with a baseline of 1, sodium of 130, lactic acid of 0.7 with normal LFTs. Patient's troponin was slightly elevated 0.05, appears to be patient's baseline, BNP was 634, which is significantly decreased from prior visits in the thousands. Patient had a chest x-ray which showed concern for a right middle lobe and right lower lobe pneumonia, he was recently discharged on 03/03/2019 from [facility] secondary to sepsis due to pneumonia, the patient had been discharged on azithromycin and Omnicef as well as a 14 day taper of prednisone. Per patient he does not believe he finished all of these medication courses. As the patient has had recent hospitalization, the patient was started on Levaquin, Zosyn and vancomycin, he was also given a dose of Solu- Medrol and Lasix 80 mg IV. Past Med Surg Social Fam HX - Past Medical History Medical history: diabetes, GERD, myocardial infarction, atrial fibrillation, hyperlipidemia, hypertension, coronary artery disease, CHF, COPD Additional medical history: GOUT Psychiatric history: anxiety - Past Surgical History Surgical History: angioplasty/stent, appendectomy Additional surgical history: LUNG BIOPSY, stent times 1 - Social History Smoking Status: Current every day smoker Smokeless Tobacco Status: No Alcohol use: none Drug use: none - Family History Sister Adopted: No Family Member Ethnicity: Non- Living Status: Still Living Hx Family Cardiac Disorders: No Hx Family Respiratory Disorders: No Hx Family Cancer: Yes Hx Family GI Disorders: No Hx Family Endocrine Disorder: No ([place] thyroid) Hx Family Neuromuscular Disorders: No Hx Family Neurologic Disorders: No Hx Family HEENT Disorders: No Hx Family Autoimmune Disorders: No Brother Living Status: Still Living Hx Family Cardiac Disorders: Yes Father Living Status: Hx Family Cancer: Yes Mother Living Status: Hx Family Cardiac Disorders: Yes Hx Family Endocrine Disorder: Yes (diabetes) Internal Medicine - H&P: Meds Clopidogrel [Plavix] 75 mg PO DAILY #30 tablet 12/23/16 [Rx] Albuterol Sulfate [Albuterol Inhaler] 2 puff IH Q4H PRN 07/20/17 [History] Atorvastatin Calcium [Lipitor] 20 mg PO HS 07/20/17 [History] Nitroglycerin [Nitrostat] 0.4 mg SL Q5M PRN 07/20/17 [History] Gemfibrozil [Lopid] 600 mg PO BID 08/01/17 [History] Ferrous Sulfate [Iron] 325 mg PO BID 11/09/17 [History] Glycopyrrolate/Formoterol Fum [Bevespi Aerosphere Inhaler] 2 puff IH BID 11/09/17 [History] Vitamin E Acetate [Vitamin E] 400 unit PO BID 11/09/17 [History] HYDROcodone/Acet 10/325 mg [[place] 10-325 mg] 1 tab PO Q6HR PRN 02/28/19 [History] Insulin LISPRO [Humalog Kwikpen U-100] 0 unit SQ TIDAC PRN 02/28/19 [History] Ipratropium/Albuterol Sulfate [Iprat-Albut 0.5-3(2.5) mg/3 ml] 3 ml IH QID PRN 02/28/19 [History] Metformin HCl 1,000 mg PO BID 02/28/19 [History] Midodrine [ProAmatine] 5 mg PO DAILY 02/28/19 [History] Pregabalin [Lyrica] 50 mg PO BID 02/28/19 [History] Furosemide [Lasix] 20 mg PO DAILY #30 tablet 03/03/19 [Rx] Cholecalciferol (Vitamin D3) [Vitamin D] 2,000 unit PO DAILY 03/28/19 [History] Guaifenesin [Mucinex] 600 mg PO BID 03/28/19 [History] Magnesium Oxide [Magnesium] 400 mg PO TID 03/28/19 [History] Pantoprazole Sodium 40 mg PO DAILY 03/28/19 [History] Allergy/AdvReac Type Severity Reaction Status Date / Time No Known Allergies Allergy Verified 02/28/19 21:37 All Systems PM: A 10-system review of systems was performed and is negative for pertinent findings except as documented above in the HPI. - Constitutional Constitutional: fatigue, weakness, no chills, no fever(s), no falls, no night sweats, no weight gain, no weight loss - EENT Eyes: no blurry vision, no change in vision, no loss of peripheral vision, no loss of vision Nose, mouth and throat: no dry mouth, no nasal congestion, no post-nasal drip - Cardiovascular Cardiovascular ROS IM: dyspnea, dyspnea on exertion, edema, orthopnea, no chest pain, no lightheadedness, no palpitations, no syncope - Respiratory Respiratory: cough, dyspnea, dyspnea on exertion, chest congestion, excessive phlegm production, no hemoptysis, no wheezing, no pain on inspiration, no change in phlegm color - Gastrointestinal Gastrointestinal: no abdominal pain, no diarrhea, no hematemesis, no hematochezia, no nausea, no vomiting - Genitourinary Genitourinary ROS male: no difficulty urinating, no flank pain - Integumentary Integumentary IM: no rash - Neurological Neurological ROS: confusion, weakness, no dizziness, no numbness, no tingling, no other visual disturbances - Constitutional General appearance: Present: A&O X 3 (seems mildly somnolent but easily arousable) Exam: . - Head Head exam: Present: atraumatic, normal inspection, normocephalic - Eye Eye exam: Present: EOMI, PERRL Pupils: Present: PERRL - ENT ENT exam: Present: mucous membranes moist, normal oropharynx - Neck Neck exam general surgery: Present: trachea midline - Respiratory Respiratory exam: Present: decreased breath sounds, prolonged expiratory phase, rhonchi - Expanded Respiratory Exam Location: decreased breath sounds: Right, Left, rhonchi: Left, Right, Lower, wheezes: Lower, Right, Left - Cardiovascular Cardiovascular exam: Present: RRR, +S1, +S2 - GI/Abdominal GI/Abdominal exam: Present: soft. Absent: guarding, pulsatile mass, rebound, tenderness - Extremities Exam Extremities exam: Present: normal capillary refill, pedal edema (1+ Pitting LE edema), warm, radial pulses palpable and symmetrical. Absent: calf tenderness - Neurological Exam Neurological exam: Present: alert, CN II-XII intact, oriented X3, reflexes normal, no focal deficits, strengths equal and symetr throughout (seems tired during examination, easily arousable and speaking in full sentences and answers questions appropriate to his knowledge) - Psychiatric Psychiatric exam: Present: normal affect, normal mood - Skin Skin exam: Present: intact, warm. Absent: diaphoretic, petechiae, rash Internal Med - H&P Results - Labs CBC & Chem 7: 03/29/19 01:58 03/29/19 01:58 - ABG Interpretation Interpretation: ABG interpreted by me Interpretation: abnormal - EKG Data EKG shows normal: sinus rhythm - EKG Data Prior EKG available for review: no - Assessment and Plan (1) Sepsis Current Visit: Yes Status: Acute Assessment and plan: Patient was sepsis secondary to most likely multifocal pneumonia Patient at [place] was found to be tachypneic with a rate of 20, tachycardic at 110. He was afebrile and white count is within normal limits. Lactic acid is 0.7 Chest x-ray does reveal multifocal opacification, patient states that he has had cough with no change in sputum production. He denies any fevers or chills at home. He has however had weakness with fatigue. Patient was discharged on 03/03/2019 for sepsis secondary to pneumonia, and discharged on azithromycin and Omnicef with a 14 day steroid taper, patient states that he does not believe he completed this course. Concern for HCAP versus residual community-acquired pneumonia without full treatment Plan Patient received 1 dose of vancomycin, Levaquin as well as Zosyn at outside hospital We will continue with Levaquin and Zosyn, as patient is also hard he received 1 dose of vancomycin, we will hold for renal dosing tomorrow MRSA nasal swab pending Qualifiers: Sepsis type: sepsis due to unspecified organism Qualified Code(s): A41.9 - Sepsis, unspecified organism (2) Acute respiratory failure with hypoxia and hypercapnia Current Visit: Yes Status: Acute Assessment and plan: On patient's arrival to the ER at [place], patient was found to be hypoxic with an oxygen saturation of 86% on 5 L nasal cannula, progress to BiPAP found to be in respiratory acidosis with a pH of 7.16, with a PCO2 of 107, HCO3 of 39. After BiPAP, patient's pH slightly improved to 7.22 with a PCO2 of 90, HCO3 38. On arrival to the ER, patient was somnolent, however did it improve following BiPAP, currently patient is alert and oriented 3, arousable and conversational, however is a poor historian. He has known focal neurological neurological deficits. He does seem somewhat tired and minimally somnolent. Suspect he respiratory failure secondary to multifocal pneumonia as well as COPD exacerbation Plan Repeat ABG We will continue BiPAP Pneumonia as described above, COPD as described above (3) Pneumonia Current Visit: Yes Status: Acute Assessment and plan: Patient with recent admission on with discharge on 03/03/2019 for sepsis secondary to pneumonia, was supposed to be discharged on azithromycin and Omnicef with a prednisone taper. Per patient he does not believe he completed these courses. Patient with cough with generalized weakness for the past few weeks, on arrival to the ER patient was found to have hypoxemia with hypercapnia and altered mental status Chest x-ray shows multifocal opacifications, concern for age Patient was started on vancomycin, Levaquin and Zosyn Plan We will check respiratory panel MRSA swab Legionella and strep urine Patient will be started on BiPAP for concomitant COPD exacerbation and respiratory acidosis We will continue Levaquin and Zosyn, as patient also has a KI, or renally dosed vancomycin, with this we will hold off on tomorrow's vancomycin dosing Blood cultures currently pending Sputum culture pending Qualifiers: Pneumonia type: due to unspecified organism Laterality: bilateral Lung location: lower lobe of lung Qualified Code(s): J18.1 - Lobar pneumonia, unspecified organism (4) COPD exacerbation Current Visit: Yes Status: Acute Assessment and plan: Patient with history of COPD, on examination has significant rhonchi and wheezing Reportedly did not finish most recent 2 week prednisone taper after last admission Plan Continue Solu-Medrol 40 mg every 12 DuoNeb every 4 Continue BiPAP (5) Altered mental status, unspecified Current Visit: Yes Status: Acute Assessment and plan: On arrival to the outside facility, patient was noted to have a GCS of 10, suspected secondary to hypercapnia as patient was found to be in respiratory failure, once BiPAP was started, patient became more alert and oriented. P atient was found to have severe respiratory acidosis with a PCO2 of 107 which did improve on BiPAP. On arrival to our hospital, patient is alert and oriented 3 however mildly somnolent. No reported falls per patient, we will obtain further history from the as she is not at bedside currently. No sign of obvious trauma or injury on examination. No focal neurological signs or symptoms or deficits on my examination. Pupils equal round reactive, 3 mm in size. Plan As there is reported opioid prescription and states that possibly gave this to him earlier today, we will give 1 dose of naloxone UDS has been ordered which does show positive opioids We will hold off on CT of the head non-con at this point in time, will consider if the patient's mental status does not improve after acidosis/hypercapnia improves. Qualifiers: Altered mental status type: somnolence Qualified Code(s): R40.0 - Somnolence (6) Acute systolic CHF (congestive heart failure) Current Visit: Yes Status: Acute Assessment and plan: Patient with history of CHF BNP on arrival is 634, however this is significantly decreased from prior admissions that have been up in the thousands. On examination I do not notice significant crackles, he states that his lower extremity's are unchanged with 1+ pitting edema to the knee. Do not suspect significant fluid overload, however patient does have severe pulmonary hypertension and we will continue to monitor Patient did receive Lasix 80 mg IV at outside hospital. Most recent recent echocardiogram was performed and 03/03/2019, during patient's last admission with ejection fraction of 55% was also showed severe pulmonary hypertension Plan Hold Lasix at this time as patient does have acute kidney injury Anticipate slow diuresis once kidney function is appropriate Strict I's and O's Continue BiPAP (7) Coronary artery disease Current Visit: No Status: Chronic Assessment and plan: Patient with known history of CAD S/P stent x1 in 2017 Patient medications unknown, will wait for med reconciliation prior to starting medications No active chest pain Qualifiers: Coronary Disease-Associated Artery/Lesion type: due to calcified coronary lesion Qualified Code(s): I25.10 - Atherosclerotic heart disease of [place] coronary artery without angina pectoris; I25.84 - Coronary atherosclerosis due to calcified coronary lesion (8) Atrial fibrillation Current Visit: No Status: Chronic Assessment and plan: Patient with history of atrial fibrillation Patient poor historian, does not know medication list On arrival, patient in NSR, will continue to monitor. Medication reconciliation Qualifiers: Atrial fibrillation type: paroxysmal Qualified Code(s): I48.0 - Paroxysmal atrial fibrillation (9) Elevated troponin Current Visit: Yes Status: Acute Assessment and plan: Appears at patients baseline, unchanged from previous admission. Suspect secondary to demand. Patient without chest pain. (10) ASIM (acute kidney injury) Current Visit: Yes Status: Acute Assessment and plan: Patient with seem creatinine that is slightly elevated from baseline at 1.46, suspect most likely prerenal versus nephrotoxic medications that the patient was recently admitted for pneumonia and had been treated. 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 Internal Med - H&P Results - Labs CBC & Chem 7: 03/29/19 01:58 03/29/19 01:58 - Time Spent With Patient Total time spent is greater than 50% in coordination of care (as documented) at patient's floor/unit and/or counseling patient: - Attending Attestation I performed a history and physical exam of the patient and discussed management with the resident. I reviewed the resident's note and agree with the documented findings and plan of care. Hai Ruiz is a 58-year-old man with diab etes, CAD and COPD with severe pulmonary hypertension who was found by his with altered mental status described as somnolence and poorly responsive state. In the ER he was found to have significant hypercarbia and was placed on BiPAP with subsequent improvement in his level of consciousness. Although he remained sleepy, he was more arousable and followed commands. He was transferred here [facility] for further care. X-ray is reviewed by me shows bilateral lung interstitial infiltrates that are worsening or comparison to previous. Lab work revealed hyponatremia, hypochloremia with mild elevation in BNP and serum troponin. ABGs are consistent with acute on chronic respiratory acidosis. He will need inpatient admission to a monitored setting for his COPD induced symptomatic acute hypercarbic respiratory failure requiring close respiratory watch. Continue NIPPV and serial blood gases. His expected PCO2 is in the 64-68 range. He will benefit from systemic steroids, diuretics and ongoing nebulizer therapy. Trial of naloxone given report of opiate intake of recent. Closely wa tch his mental status as well. Empiric abx should be given. LUIZA HOLLY.
[2019-03-29] MEDS ORDERED: Naloxone 0.4 MG/ML INJ IVP PRN (01:11)
[2019-03-29] MEDS ORDERED: Acetaminophen 325 MG TABLET PO PRN (01:11)
[2019-03-29] MEDS ORDERED: Ondansetron 4 MG/2 ML VIAL IVP PRN (01:11)
[2019-03-29] MEDS ORDERED: D5% in Water 1,000 ML IVC PRN (01:14)
[2019-03-29] MEDS ORDERED: *HR* Dextrose 50 % in Water (Syg) 50 ML SYRINGE IVP PRN (01:14)
[2019-03-29] MEDS ORDERED: Dextrose Gel 15 GM/37.5 ML TUBE PO PRN ×2 (01:14)
[2019-03-29] MEDS ORDERED: Naloxone 0.4 MG/ML INJ IVP ONE (01:21)
[2019-03-29 02:06] LABS: Amphetamine Screen,Urine Negative ng/mL (Cutoff=1000); Barbiturate Screen,Urine Negative ng/mL (Cutoff=200); Benzodiazepines Screen,Urine Negative ng/mL (Cutoff=200); Cannabinoid Screen,Urine Negative ng/mL (Cutoff = 50); Cocaine Screen,Urine Negative ng/mL (Cutoff= 300); Opiate Screen,Urine Positive ng/mL (Cutoff=300); Phencyclidine Screen,Urine Negative ng/mL (Cutoff=25)
[2019-03-29 02:08] LABS: Basophils % 0.1 %; Hematocrit 38.1 % (37.5-50.1); Immature Granulocytes % 0.6 % (0-4); Lymphocytes # 0.6 K/mcL (0.6-4.6); Lymphocytes % 7.1 %; Mean Corpuscular HGB Conc 31.5 g/dL (31.6-35.5); Mean Corpuscular Hemoglobin 30.8 pg (28.0-33.3); Mean Corpuscular Volume 97.7 fL (83.0-100.0); Mean Platelet Volume 12.6 fL (9.4-12.4); Monocytes # 0.1 K/mcL (0.0-1.3); Monocytes % 0.7 %; Neutrophils # 7.3 K/mcL (1.6-8.9); Platelet Count 125 K/mcL (140-400); Red Cell Distribution Width 13.8 % (11.5-14.5); Segmented Neutrophils % 91.5 %
[2019-03-29 02:27] LABS: BUN/Creatinine Ratio 20 (6-26); Blood Urea Nitrogen 26 mg/dL (8-23); Carbon Dioxide 29 mEq/L (23-29); Chloride 93 mEq/L (98-107); Glucose 255 mg/dL (70-105); Potassium 4.9 mEq/L (3.5-5.1); Sodium 131 mEq/L (136-145); eGFR For Non-African Americans 55 (> 60)
[2019-03-29 02:28] LABS: Magnesium 1.2 mg/dL (1.6-2.6); Osmolality,Calculated 285 (280-300); Phosphorous 2.9 mg/dL (2.7-4.5)
[2019-03-29] MEDS ORDERED: Potassium Phosphate 44 MEQ in 0.9 % Sodium Chloride 250 ML IVPB PRN (02:44)
[2019-03-29 03:08] LABS: ABG Base Excess 5 mEq/L (-2 to 3); ABG HCO3 34 mEq/L (21-27); ABG Oxygen Saturation 93 % (95-98); ABG PCO2 68 mmHg (35-45); ABG PH 7.31 pH Units (7.32-7.45); ABG PO2 78 mmHg (85-104); ABG TCO2 36 mEq/L (20-26); Blood Gas PEEP 8 cm H2O
[2019-03-29] MEDS: Ipratropium/Albuterol Neb 3 ML IH SCH ×5 (03:13→20:17)
[2019-03-29 03:29] LABS: Adenovirus Not Detected (Not Detect); Coronavirus 229E Not Detected (Not Detect); Coronavirus HKU1 Not Detected (Not Detect); Coronavirus NL63 Not Detected (Not Detect); Coronavirus OC43 Not Detected (Not Detect); Human Metapneumovirus Not Detected (Not Detect); Human Rhinovirus/Enterovirus Not Detected (Not Detect)
[2019-03-29 03:30] LABS: VBG Ionized Calcium 0.89 mmol/L (1.15-1.35)
[2019-03-29 03:30] LABS: Bordetella Pertussis Not Detected (Not Detect); Chlamydophila pneumoniae Not Detected (Not Detect); Influenza A Subtype 2009 H1 Not Detected (Not Detect); Influenza A Untypeable Not Detected (Not Detect); Influenza B Not Detected (Not Detect); Mycoplasma pneumoniae Not Detected (Not Detect); Parainfluenza Virus 1 Not Detected (Not Detect); Parainfluenza Virus 2 Not Detected (Not Detect); Parainfluenza Virus 3 Not Detected (Not Detect); Parainfluenza Virus 4 Not Detected (Not Detect); Respiratory Syncytial Virus Not Detected (Not Detect)
[2019-03-29] MEDS: *HR* Heparin 5,000 UNIT/ML VIAL SQ SCH ×3 (03:50→16:10)
[2019-03-29] MEDS: 0.9 % Sodium Chloride 1,000 ML IVC SCH ×2 (03:50→17:34)
[2019-03-29] MEDS ORDERED: *HR* LORazepam Oral Conc 2 MG/ML SL ONE (04:25)
[2019-03-29] MEDS ORDERED: Insulin LISPRO 300 UNITS/3 ML VIAL SQ SCH ×2 (06:00→06:36)
[2019-03-29] MEDS ORDERED: MethylPREDNISolone 40 MG/ML VIAL IVP SCH (06:00)
[2019-03-29] MEDS: Insulin LISPRO 300 UNITS/3 ML VIAL SQ SCH ×3 (06:56→16:58)
--- NOTE | 2019-03-29 08:01 | Internal Med Progress Note ---
Hospitalist Progress Note - Encounter Date of Encounter: 03/29/19 Time of Encounter: 08:00 - Subjective Interval History: Admitted for respiratory failue 2/2 to copd and pneumonia. Improved this am - Exam Vitals: Temp Pulse Resp BP Pulse Ox 98.5 F 93 17 99/68 97 03/29/19 06:52 03/29/19 06:52 03/29/19 06:52 03/29/19 06:52 03/29/19 06:52 Exam: .General appearance: Present: A&O X 3, no acute distress Head exam: Present: normocephalic Respiratory exam: diffuse wheezes, poor air entry Cardiovascular exam: Present: RRR, +S1, +S2. Absent: diastolic murmur, gallop, rubs, systolic murmur GI/Abdominal exam: Soft, NT, ND, +BS Extremities exam: Absent: pedal edema Neurological exam: Present: alert, oriented X3, no focal deficits. Absent: altered - Assessment and Plan (1) Acute respiratory failure with hypoxia and hypercapnia Current Visit: Yes Status: Acute Assessment and Plan: Pt comes in with acute worsening of chronic respiratory failure 2/2 to COPD and multifcal pneumonia CXR shows infiltrates and CO2 was 90 at [place] Improved this am. CO2 down in the 60s Continue BIPAP, nebs, steroids and antibiotics (2) COPD exacerbation Current Visit: Yes Status: Acute Assessment and Plan: Continue on BIPAP, nebs, steroids and antibiotics (3) Pneumonia Current Visit: Yes Status: Acute Assessment and Plan: Continue on levaquin and zosyn Follow cultures (4) Diabetes Current Visit: Yes Status: Acute Assessment and Plan: Continue insulin and monitor fingersticks (5) ASIM (acute kidney injury) Current Visit: Yes Status: Acute Assessment and Plan: IV fluid hydration and monitor creatinine (6) Hypomagnesemia Current Visit: Yes Status: Acute Assessment and Plan: Replaced (7) DVT prophylaxis Current Visit: Yes Status: Acute Assessment and Plan: heparin sc - Time Spent with Patient Total time spent is greater than 50% in coordination of care (as documented) at patient's floor/unit and/or counseling patient: Internal Medicine: Result - Labs CBC & Chem 7: 03/29/19 09:10 03/29/19 01:58 Labs: Short CBC 03/29/19 Range/Units 01:58 WBC 8.0 (4.3-11.1) K/mcL Hgb 12.0 L (12.9-16.9) g/dL Hct 38.1 (37.5-50.1) % Plt Count 125 L (140-400) K/mcL Neutrophils # 7.3 (1.6-8.9) K/mcL BMP 03/29/19 01:58 Sodium 131 L Potassium 4.9 Chloride 93 L Carbon Dioxide 29 BUN 26 H Creatinine 1.33 H Glucose 255 H Calcium 8.0 L - ABG Interpretation ABG results: ABG ABG pH 7.31 pH Units (7.32-7.45) L 03/29/19 03:05 ABG pCO2 68 mmHg (35-45) H 03/29/19 03:05 ABG pO2 78 mmHg (85-104) L 03/29/19 03:05 ABG O2 Saturation 93 % (95-98) L 03/29/19 03:05 Consult Discharge Plan - Plan Referrals: Tawanda Chi MD [Primary Care Provider] - (3) Pneumonia Qualifiers: Pneumonia type: due to unspecified organism Laterality: bilateral Lung location: lower lobe of lung Qualified Code(s): J18.1 - Lobar pneumonia, unspecified organism (4) Diabetes Qualifiers: Diabetes mellitus type: type 2 Diabetes mellitus skilled nursing insulin use: with skilled nursing use Diabetes mellitus complication status: with unspecified complications Qualified Code(s): E11.8 - Type 2 diabetes mellitus with unspecified complications; 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
[2019-03-29] MEDS: Piperacillin/Tazobactam 3.375 GM in 0.9 % Sodium Chloride Mini Bag 100 ML IVPB SCH ×2 (08:35→16:09)
[2019-03-29] MEDS: Levofloxacin 750 MG/150 ML 750 MG/150 ML BAG IVPB SCH (08:35)
[2019-03-29 09:34] LABS: Hematocrit 36.9 % (37.5-50.1); Hemoglobin 11.4 g/dL (12.9-16.9); Immature Granulocytes % 0.4 % (0-4); Lymphocytes # 0.5 K/mcL (0.6-4.6); Lymphocytes % 10.8 %; Mean Corpuscular HGB Conc 30.9 g/dL (31.6-35.5); Mean Corpuscular Hemoglobin 30.4 pg (28.0-33.3); Mean Corpuscular Volume 98.4 fL (83.0-100.0); Mean Platelet Volume 12.8 fL (9.4-12.4); Monocytes # 0.3 K/mcL (0.0-1.3); Monocytes % 5.4 %; Neutrophils # 4.2 K/mcL (1.6-8.9); Platelet Count 120 K/mcL (140-400); Red Blood Count 3.75 M/mcL (4.19-5.50); Red Cell Distribution Width 13.5 % (11.5-14.5); Segmented Neutrophils % 83.4 %
[2019-03-29 15:27] LABS: VBG Ionized Calcium 0.89 mmol/L (1.15-1.35)
[2019-03-29] MEDS: Budesonide/Formoterol 160/4.5 1 PUFF INH IH SCH ×2 (15:52→20:17)
[2019-03-29] MEDS: MethylPREDNISolone 40 MG/ML VIAL IVP SCH (16:09)
[2019-03-29 19:05] LABS: Basophils % 0.2 %; Hematocrit 34.9 % (37.5-50.1); Hemoglobin 10.6 g/dL (12.9-16.9); Immature Granulocytes % 0.4 % (0-4); Lymphocytes # 0.3 K/mcL (0.6-4.6); Lymphocytes % 6.2 %; Mean Corpuscular HGB Conc 30.4 g/dL (31.6-35.5); Mean Corpuscular Hemoglobin 29.8 pg (28.0-33.3); Mean Platelet Volume 12.4 fL (9.4-12.4); Monocytes # 0.2 K/mcL (0.0-1.3); Neutrophils # 4.9 K/mcL (1.6-8.9); Platelet Count 132 K/mcL (140-400); Red Blood Count 3.56 M/mcL (4.19-5.50); Red Cell Distribution Width 13.8 % (11.5-14.5); Segmented Neutrophils % 89.2 %
[2019-03-29] MEDS: Pregabalin 50 MG CAPSULE PO SCH (20:32)
[2019-03-30] MEDS: Ipratropium/Albuterol Neb 3 ML IH SCH ×7 (00:16→23:12)
[2019-03-30] MEDS: *HR* Heparin 5,000 UNIT/ML VIAL SQ SCH ×3 (00:26→17:48)
[2019-03-30] MEDS: MethylPREDNISolone 40 MG/ML VIAL IVP SCH ×3 (00:26→17:48)
[2019-03-30] MEDS: Piperacillin/Tazobactam 3.375 GM in 0.9 % Sodium Chloride Mini Bag 100 ML IVPB SCH ×3 (00:26→17:47)
[2019-03-30] MEDS: Insulin LISPRO 300 UNITS/3 ML VIAL SQ SCH ×5 (00:27→21:32)
[2019-03-30 07:04] LABS: Hematocrit 33.1 % (37.5-50.1); Hemoglobin 10.3 g/dL (12.9-16.9); Immature Granulocytes % 0.5 % (0-4); Lymphocytes # 0.4 K/mcL (0.6-4.6); Lymphocytes % 3.7 %; Mean Corpuscular HGB Conc 31.1 g/dL (31.6-35.5); Mean Corpuscular Hemoglobin 29.9 pg (28.0-33.3); Mean Corpuscular Volume 95.9 fL (83.0-100.0); Mean Platelet Volume 12.5 fL (9.4-12.4); Monocytes # 0.4 K/mcL (0.0-1.3); Platelet Count 131 K/mcL (140-400); Red Blood Count 3.45 M/mcL (4.19-5.50); Segmented Neutrophils % 91.8 %
[2019-03-30 07:26] LABS: BUN/Creatinine Ratio 21 (6-26); Blood Urea Nitrogen 25 mg/dL (8-23); Calcium 8.1 mg/dL (8.6-10.3); Carbon Dioxide 31 mEq/L (23-29); Chloride 94 mEq/L (98-107); Glucose 368 mg/dL (70-105); Magnesium 2.1 mg/dL (1.6-2.6); Osmolality,Calculated 299 (280-300); Phosphorous 1.5 mg/dL (2.7-4.5); Potassium 4.2 mEq/L (3.5-5.1); Sodium 135 mEq/L (136-145); eGFR For Non-African Americans > 60 (> 60)
[2019-03-30] MEDS: Budesonide/Formoterol 160/4.5 1 PUFF INH IH SCH ×2 (07:27→20:30)
[2019-03-30 07:34] LABS: Neutrophils # 9.6 K/mcL (1.6-8.9)
[2019-03-30] MEDS: Pregabalin 50 MG CAPSULE PO SCH ×2 (08:28→21:18)
[2019-03-30] MEDS: Levofloxacin 750 MG/150 ML 750 MG/150 ML BAG IVPB SCH (08:29)
[2019-03-30] MEDS: Cholecalciferol (D-3) 1,000 UNIT TABLET PO SCH (08:30)
--- NOTE | 2019-03-30 08:47 | Internal Med Progress Note ---
Hospitalist Progress Note - Encounter Date of Encounter: 03/30/19 Time of Encounter: 08:45 - Subjective Interval History: Admitted for acute on chronic hypoxic hypercapneic resp failure 2/2 to pneumonia and copd exacerbation. Improving - Exam Vitals: Temp Pulse Resp BP Pulse Ox 97.5 F L 110 16 143/80 95 03/30/19 08:08 03/30/19 08:08 03/30/19 08:08 03/30/19 08:08 03/30/19 08:08 Exam: .General appearance: Present: A&O X 3, no acute distress Head exam: Present: normocephalic Respiratory exam: diffuse wheezes, poor air entry Cardiovascular exam: Present: RRR, +S1, +S2. Absent: diastolic murmur, gallop, rubs, systolic murmur GI/Abdominal exam: Soft, NT, ND, +BS Extremities exam: Absent: pedal edema Neurological exam: Present: alert, oriented X3, no focal deficits. Absent: altered - Assessment and Plan (1) Acute respiratory failure with hypoxia and hypercapnia Current Visit: Yes Status: Acute Assessment and Plan: Pt comes in with acute worsening of chronic respiratory failure 2/2 to COPD and multifocal pneumonia CXR shows infiltrates and CO2 was 90 at [place] Improved this am. CO2 down in the 60s Continue BIPAP, nebs, steroids and antibiotics Respiratory status improving and anticipate discharge in a day or 2 (2) COPD exacerbation Current Visit: Yes Status: Acute Assessment and Plan: Continue on BIPAP, nebs, steroids and antibiotics (3) Pneumonia Current Visit: Yes Status: Acute Assessment and Plan: Continue on levaquin and zosyn Follow cultures Patient was not septic (4) Diabetes Current Visit: Yes Status: Acute Assessment and Plan: Continue insulin and monitor fingersticks (5) ASIM (acute kidney injury) Current Visit: Yes Status: Acute Assessment and Plan: IV fluid hydration and monitor creatinine (6) Hypomagnesemia Current Visit: Yes Status: Acute Assessment and Plan: Replaced (7) DVT prophylaxis Current Visit: Yes Status: Acute Assessment and Plan: heparin sc - Time Spent with Patient Total time spent is greater than 50% in coordination of care (as documented) at patient's floor/unit and/or counseling patient: Internal Medicine: Result - Labs CBC & Chem 7: 03/30/19 06:00 03/30/19 06:00 Labs: Short CBC 03/29/19 03/29/19 03/30/19 Range/Units 09:10 18:36 06:00 WBC 5.0 5.5 10.4 D (4.3-11.1) K/mcL Hgb 11.4 L 10.6 L 10.3 L (12.9-16.9) g/dL Hct 36.9 L 34.9 L 33.1 L (37.5-50.1) % Plt Count 120 L 132 L 131 L (140-400) K/mcL Neutrophils # 4.2 4.9 9.6 H (1.6-8.9) K/mcL BMP 03/30/19 06:00 Sodium 135 L Potassium 4.2 Chloride 94 L Carbon Dioxide 31 H BUN 25 H Creatinine 1.20 Glucose 368 H Calcium 8.1 L - ABG Interpretation ABG results: ABG ABG pH 7.31 pH Units (7.32-7.45) L 03/29/19 03:05 ABG pCO2 68 mmHg (35-45) H 03/29/19 03:05 ABG pO2 78 mmHg (85-104) L 03/29/19 03:05 ABG O2 Saturation 93 % (95-98) L 03/29/19 03:05 Consult Discharge Plan - Plan Referrals: Tawanda Chi MD [Primary Care Provider] - 04/09/19 3:15 pm (3) Pneumonia Qualifiers: Pneumonia type: due to unspecified organism Laterality: bilateral Lung location: lower lobe of lung Qualified Code(s): J18.1 - Lobar pneumonia, unspecified organism (4) Diabetes Qualifiers: Diabetes mellitus type: type 2 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
[2019-03-30] MEDS: *HR* HYDROcodone/Acet 5/325 mg TABLET PO PRN ×2 (09:16→21:19)
[2019-03-31] MEDS ORDERED: MethylPREDNISolone 40 MG/ML VIAL ONE (01:00)
[2019-03-31] MEDS: Piperacillin/Tazobactam 3.375 GM in 0.9 % Sodium Chloride Mini Bag 100 ML IVPB SCH ×3 (01:04→17:00)
[2019-03-31] MEDS: MethylPREDNISolone 40 MG/ML VIAL IVP SCH ×3 (01:06→17:00)
[2019-03-31] MEDS: *HR* Heparin 5,000 UNIT/ML VIAL SQ SCH ×3 (01:06→17:01)
[2019-03-31] MEDS: Ipratropium/Albuterol Neb 3 ML IH SCH ×6 (03:58→23:02)
[2019-03-31 05:38] LABS: Basophils % 0.1 %; Hematocrit 35.5 % (37.5-50.1); Immature Granulocytes % 0.4 % (0-4); Lymphocytes # 0.4 K/mcL (0.6-4.6); Lymphocytes % 4.4 %; Mean Corpuscular Hemoglobin 30.1 pg (28.0-33.3); Mean Corpuscular Volume 97.3 fL (83.0-100.0); Mean Platelet Volume 11.9 fL (9.4-12.4); Monocytes # 0.2 K/mcL (0.0-1.3); Monocytes % 2.7 %; Neutrophils # 7.8 K/mcL (1.6-8.9); Platelet Count 133 K/mcL (140-400); Red Blood Count 3.65 M/mcL (4.19-5.50); Red Cell Distribution Width 14.3 % (11.5-14.5); Segmented Neutrophils % 92.4 %
[2019-03-31 05:44] LABS: BUN/Creatinine Ratio 19 (6-26); Blood Urea Nitrogen 19 mg/dL (8-23); Calcium 8.4 mg/dL (8.6-10.3); Carbon Dioxide 33 mEq/L (23-29); Chloride 98 mEq/L (98-107); Glucose 314 mg/dL (70-105); Magnesium 1.9 mg/dL (1.6-2.6); Osmolality,Calculated 298 (280-300); Phosphorous 2.4 mg/dL (2.7-4.5); Potassium 4.5 mEq/L (3.5-5.1); Sodium 137 mEq/L (136-145); eGFR For Non-African Americans > 60 (> 60)
[2019-03-31] MEDS: *HR* HYDROcodone/Acet 5/325 mg TABLET PO PRN ×3 (05:45→18:02)
[2019-03-31] MEDS: Budesonide/Formoterol 160/4.5 1 PUFF INH IH SCH ×2 (07:27→20:08)
[2019-03-31] MEDS: Insulin LISPRO 300 UNITS/3 ML VIAL SQ SCH ×4 (09:03→21:45)
[2019-03-31] MEDS: Levofloxacin 750 MG/150 ML 750 MG/150 ML BAG IVPB SCH (09:04)
[2019-03-31] MEDS: Cholecalciferol (D-3) 1,000 UNIT TABLET PO SCH (09:05)
[2019-03-31] MEDS: Pregabalin 50 MG CAPSULE PO SCH ×2 (09:05→21:45)
[2019-03-31] MEDS ORDERED: Furosemide 40 MG/4 ML VIAL IVP ONE (10:17)
--- NOTE | 2019-03-31 10:24 | Discharge Summary ---
Date of Encounter: 03/31/19 Time of Encounter: 10:20 - Discharge Diagnosis (1) Acute respiratory failure with hypoxia and hypercapnia Priority: Primary Status: Acute Assessment and Plan: 58 year old male with past medical history significant for COPD, CHF, pulmonary hypertension, CAD status post stent in 2017, atrial fibrillation and diabetes mellitus type 2. Patient is a transfer patient from [place] [facility] with a diagnosis of acute respiratory failure, pneumonia and ASIM. On arrival to [facility], patient is slightly somnolent, however is easily arousable and able to answer questions, he does not recall most of the events, and is overall a poor historian however he does state that he has had generalized fatigue and weakness for the past 2 weeks progressively worse with generalized shortness of rest. He was admitted with acute worsening of chronic respiratory failure 2/2 to COPD and multifocal pneumonia. CXR showed infiltrates and CO2 was 90 at [place]. He improved on BIPAP, nebs, steroids and antibiotics. CO2 levels went down on repeat ABG. By day 3 he was back to his baseline oxygenation at 3L and shortness of breath had improved. He was discharged on a course of antibiotics and a steroid taper. 35 minutes was spent discharging this patient (2) COPD exacerbation Priority: Primary Status: Acute (3) Pneumonia Priority: Primary Status: Acute Qualifiers: Pneumonia type: due to unspecified organism Laterality: bilateral Lung location: lower lobe of lung Qualified Code(s): J18.1 - Lobar pneumonia, unspecified organism (4) Diabetes Priority: Primary Status: Acute Qualifiers: Diabetes mellitus type: type 2 Diabetes mellitus superintendent terminal insulin use: with jail use Diabetes mellitus complication status: with unspecified complications Qualified Code(s): E11.8 - Type 2 diabetes mellitus with unspecified complications; Z79.4 - long-term (current) use of insulin (5) ASIM (acute kidney injury) Priority: Primary Status: Acute (6) Hypomagnesemia Priority: Primary Status: Acute (7) DVT prophylaxis Priority: Primary Status: Acute Hospital course: Mr. Ruiz is a 58 year old male - Time Spent with Patient Total time spent providing and/or coordinating discharge services: - Discharge Medications Prescriptions: New Budesonide/Formoterol 160/4.5 [Symbicort 160/4.5] 2 puff IH BIDR 30 Days #1 inh predniSONE [PredniSONE] 40 mg PO DAILY 7 Days #14 tablet levoFLOXacin [Levaquin] 750 mg PO DAILY #3 tablet Continued Clopidogrel [Plavix] 75 mg PO DAILY #30 tablet Nitroglycerin [Nitrostat] 0.4 mg SL Q5M PRN PRN Reason: Chest Pain Atorvastatin Calcium [Lipitor] 20 mg PO HS Albuterol Sulfate [Albuterol Inhaler] 2 puff IH Q4H PRN PRN Reason: Shortness Of Breath Gemfibrozil [Lopid] 600 mg PO BID Glycopyrrolate/Formoterol Fum [Bevespi Aerosphere Inhaler] 2 puff IH BID Ferrous Sulfate [Iron] 325 mg PO BID Vitamin E Acetate [Vitamin E] 400 unit PO BID HYDROcodone/Acet 10/325 mg [[place] 10-325 mg] 1 tab PO Q6HR PRN PRN Reason: Pain Insulin LISPRO [Humalog Kwikpen U-100] 5 unit SQ TIDAC Ipratropium/Albuterol Sulfate [Iprat-Albut 0.5-3(2.5) mg/3 ml] 3 ml IH QID PRN PRN Reason: Shortness Of Breath Metformin HCl 1,000 mg PO BID Pregabalin [Lyrica] 50 mg PO BID Furosemide [Lasix] 20 mg PO DAILY #30 tablet Cholecalciferol (Vitamin D3) [Vitamin D3] 2,000 unit PO DAILY Pantoprazole Sodium 40 mg PO DAILY Magnesium Oxide [Magnesium] 400 mg PO TID Guaifenesin [Mucinex] 600 mg PO BID Discontinued Midodrine [ProAmatine] 5 mg PO BID Home Medications: Clopidogrel [Plavix] 75 mg PO DAILY #30 tablet 12/23/16 [Rx] Albuterol Sulfate [Albuterol Inhaler] 2 puff IH Q4H PRN 07/20/17 [History] Atorvastatin Calcium [Lipitor] 20 mg PO HS 07/20/17 [History] Nitroglycerin [Nitrostat] 0.4 mg SL Q5M PRN 07/20/17 [History] Gemfibrozil [Lopid] 600 mg PO BID 08/01/17 [History] Ferrous Sulfate [Iron] 325 mg PO BID 11/09/17 [History] Glycopyrrolate/Formoterol Fum [Bevespi Aerosphere Inhaler] 2 puff IH BID 11/09/17 [History] Vitamin E Acetate [Vitamin E] 400 unit PO BID 11/09/17 [History] HYDROcodone/Acet 10/325 mg [[place] 10-325 mg] 1 tab PO Q6HR PRN 02/28/19 [History] Insulin LISPRO [Humalog Kwikpen U-100] 5 unit SQ TIDAC 02/28/19 [History] Ipratropium/Albuterol Sulfate [Iprat-Albut 0.5-3(2.5) mg/3 ml] 3 ml IH QID PRN 02/28/19 [History] Metformin HCl 1,000 mg PO BID 02/28/19 [History] Pregabalin [Lyrica] 50 mg PO BID 02/28/19 [History] Furosemide [Lasix] 20 mg PO DAILY #30 tablet 03/03/19 [Rx] Cholecalciferol (Vitamin D3) [Vitamin D3] 2,000 unit PO DAILY 03/28/19 [History] Guaifenesin [Mucinex] 600 mg PO BID 03/28/19 [History] Magnesium Oxide [Magnesium] 400 mg PO TID 03/28/19 [History] Pantoprazole Sodium 40 mg PO DAILY 03/28/19 [History] Budesonide/Formoterol 160/4.5 [Symbicort 160/4.5] 2 puff IH BIDR 30 Days #1 inh 03/31/19 [Rx] levoFLOXacin [Levaquin] 750 mg PO DAILY #3 tablet 03/31/19 [Rx] predniSONE [PredniSONE] 40 mg PO DAILY 7 Days #14 tablet 03/31/19 [Rx] Allergies/Adverse Reactions: Allergy/AdvReac Type Severity Reaction Status Date / Time No Known Allergies Allergy Verified 02/28/19 21:37 Date of admission: 03/29/19 00:39 Primary care physician: Tawanda Chi MD - Constitutional Vitals: Temp Pulse Resp BP Pulse Ox 97.6 F 90 19 124/83 99 03/31/19 06:35 03/31/19 06:35 03/31/19 07:27 03/31/19 06:35 03/31/19 07:27 General appearance: Present: A&O X 3 (seems mildly somnolent but easily arousable) Exam: .General appearance: Present: A&O X 3, no acute distress Head exam: Present: normocephalic Respiratory exam: diffuse wheezes, poor air entry Cardiovascular exam: Present: RRR, +S1, +S2. Absent: diastolic murmur, gallop, rubs, systolic murmur GI/Abdominal exam: Soft, NT, ND, +BS Extremities exam: Absent: pedal edema Neurological exam: Present: alert, oriented X3, no focal deficits. Absent: altered - Patient Status Disposition: Home, Self-Care - Discharge Instructions Follow Up With: Tawanda Chi MD [Primary Care Provider] - 04/09/19 3:15 pm
[2019-03-31] MEDS: Furosemide 40 MG/4 ML VIAL IVP SCH (17:00)
[2019-04-01] MEDS: Piperacillin/Tazobactam 3.375 GM in 0.9 % Sodium Chloride Mini Bag 100 ML IVPB SCH ×2 (00:34→08:41)
[2019-04-01] MEDS: MethylPREDNISolone 40 MG/ML VIAL IVP SCH ×2 (00:34→08:41)
[2019-04-01] MEDS: *HR* Heparin 5,000 UNIT/ML VIAL SQ SCH ×2 (00:34→08:40)
[2019-04-01] MEDS: *HR* HYDROcodone/Acet 5/325 mg TABLET PO PRN ×2 (00:34→08:40)
[2019-04-01] MEDS: Ipratropium/Albuterol Neb 3 ML IH SCH ×3 (03:48→11:06)
[2019-04-01 06:25] LABS: Hemoglobin 11.2 g/dL (12.9-16.9); Mean Corpuscular HGB Conc 31.1 g/dL (31.6-35.5); Mean Corpuscular Volume 96.5 fL (83.0-100.0); Red Blood Count 3.73 M/mcL (4.19-5.50); Red Cell Distribution Width 14.1 % (11.5-14.5)
[2019-04-01 06:26] LABS: Immature Granulocytes % 0.5 % (0-4); Lymphocytes # 0.4 K/mcL (0.6-4.6); Lymphocytes % 4.7 %; Mean Platelet Volume 11.8 fL (9.4-12.4); Monocytes # 0.3 K/mcL (0.0-1.3); Monocytes % 3.7 %; Neutrophils # 8.3 K/mcL (1.6-8.9); Platelet Count 130 K/mcL (140-400); Segmented Neutrophils % 91.1 %
[2019-04-01 06:28] LABS: BUN/Creatinine Ratio 22 (6-26); Blood Urea Nitrogen 23 mg/dL (8-23); Calcium 8.5 mg/dL (8.6-10.3); Carbon Dioxide 34 mEq/L (23-29); Chloride 94 mEq/L (98-107); Glucose 272 mg/dL (70-105); Magnesium 1.6 mg/dL (1.6-2.6); Osmolality,Calculated 299 (280-300); Phosphorous 2.6 mg/dL (2.7-4.5); Potassium 4.4 mEq/L (3.5-5.1); Sodium 138 mEq/L (136-145); eGFR For Non-African Americans > 60 (> 60)
[2019-04-01 07:07] VITALS: BP 128/78
[2019-04-01] MEDS: Budesonide/Formoterol 160/4.5 1 PUFF INH IH SCH (07:34)
--- NOTE | 2019-04-01 08:01 | Internal Med Progress Note ---
Hospitalist Progress Note - Encounter Date of Encounter: 04/01/19 Time of Encounter: 08:00 - Subjective Interval History: No acute events overnight - Exam Vitals: Temp Pulse Resp BP Pulse Ox 97.8 F 90 16 128/78 98 04/01/19 06:58 04/01/19 06:58 04/01/19 07:34 04/01/19 06:58 04/01/19 07:34 Exam: .General appearance: Present: A&O X 3, no acute distress Head exam: Present: normocephalic Respiratory exam: diffuse wheezes, poor air entry Cardiovascular exam: Present: RRR, +S1, +S2. Absent: diastolic murmur, gallop, rubs, systolic murmur GI/Abdominal exam: Soft, NT, ND, +BS Extremities exam: Absent: pedal edema Neurological exam: Present: alert, oriented X3, no focal deficits. Absent: altered - Assessment and Plan (1) Acute respiratory failure with hypoxia and hypercapnia Current Visit: Yes Status: Acute Assessment and Plan: 58 year old male with past medical history significant for COPD, CHF, pulmonary hypertension, CAD status post stent in 2017, atrial fibrillation and diabetes mellitus type 2. Patient is a transfer patient from [place] [facility] with a diagnosis of acute respiratory failure, pneumonia and ASIM. On arrival to [facility], patient is slightly somnolent, however is easily arousable and able to answer questions, he does not recall most of the events, and is overall a poor historian however he does state that he has had generalized fatigue and weakness for the past 2 weeks progressively worse with generalized shortness of rest. He was admitted with acute worsening of chronic respiratory failure 2/2 to COPD and multifocal pneumonia. CXR showed infiltrates and CO2 was 90 at [place]. He improved on BIPAP, nebs, steroids and antibiotics. CO2 levels went down on repeat ABG. By day 3 he was back to his baseline oxygenation at 3L and shortness of breath had improved. He was discharged on a course of antibiotics and a steroid taper. 35 minutes was spent discharging this patient Discharge was held yesterday due to patient being short of breath on ambulation. Improved with diuresis and discharged today (2) COPD exacerbation Current Visit: Yes Status: Acute Assessment and Plan: Continue on BIPAP, nebs, steroids and antibiotics (3) Pneumonia Current Visit: Yes Status: Acute Assessment and Plan: Continue on levaquin and zosyn Follow cultures Patient was not septic (4) Diabetes Current Visit: Yes Status: Acute Assessment and Plan: Continue insulin and monitor fingersticks (5) ASIM (acute kidney injury) Current Visit: Yes Status: Acute Assessment and Plan: IV fluid hydration and monitor creatinine (6) Hypomagnesemia Current Visit: Yes Status: Acute Assessment and Plan: Replaced (7) DVT prophylaxis Current Visit: Yes Status: Acute Assessment and Plan: heparin sc - Time Spent with Patient Total time spent is greater than 50% in coordination of care (as documented) at patient's floor/unit and/or counseling patient: Internal Medicine: Result - Labs CBC & Chem 7: 04/01/19 05:26 04/01/19 05:26 Labs: Short CBC 04/01/19 Range/Units 05:26 WBC 9.1 (4.3-11.1) K/mcL Hgb 11.2 L (12.9-16.9) g/dL Hct 36.0 L (37.5-50.1) % Plt Count 130 L (140-400) K/mcL Neutrophils # 8.3 (1.6-8.9) K/mcL BMP 04/01/19 05:26 Sodium 138 Potassium 4.4 Chloride 94 L Carbon Dioxide 34 H BUN 23 Creatinine 1.05 Glucose 272 H Calcium 8.5 L - ABG Interpretation ABG results: ABG ABG pH 7.31 pH Units (7.32-7.45) L 03/29/19 03:05 ABG pCO2 68 mmHg (35-45) H 03/29/19 03:05 ABG pO2 78 mmHg (85-104) L 03/29/19 03:05 ABG O2 Saturation 93 % (95-98) L 03/29/19 03:05 Consult Discharge Plan - Plan Instructions: Chronic Obstructive Pulmonary Disease (DC), Hypocalcemia (DC) Referrals: Tawanda Chi MD [Primary Care Provider] - 04/09/19 3:15 pm Prescriptions: levoFLOXacin [Levaquin] 750 mg PO DAILY #3 tablet predniSONE [PredniSONE] 40 mg PO DAILY 7 Days #14 tablet Budesonide/Formoterol 160/4.5 [Symbicort 160/4.5] 2 puff IH BIDR 30 Days #1 inh (3) Pneumonia Qualifiers: Pneumonia type: due to unspecified organism Laterality: bilateral Lung location: lower lobe of lung Qualified Code(s): J18.1 - Lobar pneumonia, unspecified organism (4) Diabetes Qualifiers: Diabetes mellitus type: type 2 Diabetes mellitus fci insulin use: with fci use Diabetes mellitus complication status: with unspecified complications Qualified Code(s): E11.8 - Type 2 diabetes mellitus with unspecified complications; 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
[2019-04-01] MEDS: Insulin LISPRO 300 UNITS/3 ML VIAL SQ SCH ×2 (08:39→11:19)
[2019-04-01] MEDS: Cholecalciferol (D-3) 1,000 UNIT TABLET PO SCH (08:40)
[2019-04-01] MEDS: Furosemide 40 MG/4 ML VIAL IVP SCH (08:40)
[2019-04-01] MEDS: Pregabalin 50 MG CAPSULE PO SCH (08:40)
[2019-04-01] MEDS: Levofloxacin 750 MG/150 ML 750 MG/150 ML BAG IVPB SCH (08:42)
== END 2019-04-01 12:50 | disposition home or self-care (01) | DRG 193 ==
LOC: 2NNU → 3ANU 03-30 11:56
PROVIDERS: ADMIT Internal Medicine Nephrology; ATTEND Internal Medicine Nephrology

== ENCOUNTER 2019-12-14 15:31 | Observation (INO) ==
[2019-12-14] MEDS ORDERED: 0.9 % Sodium Chloride 1,000 ML IVC SCH ×2 (18:15→19:22)
[2019-12-14 18:41] LABS: VBG Ionized Calcium 0.72 mmol/L (1.15-1.35)
[2019-12-14 19:17] LABS: Alanine Aminotransferase 8 Units/L (7-52); Albumin 3.5 g/dL (3.5-5.7); Albumin/Globulin Ratio 1.3 (1.1-2.2); Alkaline Phosphatase 49 Units/L (34-104); Aspartate Amino Transferase 14 Units/L (13-39); BUN/Creatinine Ratio 14 (6-26); Blood Urea Nitrogen 15 mg/dL (8-23); Calcium 6.7 mg/dL (8.6-10.3); Carbon Dioxide 35 mEq/L (23-29); Chloride 85 mEq/L (98-107); Globulin 2.8 g/dL (2.4-3.5); Glucose 112 mg/dL (70-105); Magnesium < 0.5 mg/dL (1.6-2.6); Osmolality,Calculated 272 (280-300); Phosphorous 4.2 mg/dL (2.7-4.5); Potassium 3.5 mEq/L (3.5-5.1); Sodium 130 mEq/L (136-145); Total Protein 6.3 g/dL (6.4-8.9); eGFR For African Americans > 60 (> 60); eGFR For Non-African Americans > 60 (> 60)
[2019-12-14 19:46] LABS: VBG HCO3 36 mEq/L (21-27); VBG PCO2 59 mmHg (41-51); VBG PH 7.39 pH Units (7.32-7.42); VBG PO2 90 mmHg (25-50)
[2019-12-14] MEDS ORDERED: Albuterol 2.5 MG/3 ML NEBULIZER IH PRN (20:23)
[2019-12-14] MEDS ORDERED: Nicotine 2 MG GUM BC PRN (20:23)
[2019-12-14] MEDS ORDERED: Naloxone 0.4 MG/ML INJ IVP PRN (20:23)
[2019-12-14] MEDS: Nicotine 14 MG PATCH.TD24 TD SCH (21:08)
[2019-12-14] MEDS: *HR* HYDROcodone/Acet 10/325 mg TABLET PO PRN (21:08)
[2019-12-14] MEDS: Calcium Gluconate 1gm/50mL 1 GM/50 ML BAG IVPB SCH (21:09)
[2019-12-14] MEDS: Ipratropium/Albuterol Neb 3 ML IH SCH (22:30)
[2019-12-14] MEDS ORDERED: traZODone 50 MG TABLET PO SCH (22:45)
[2019-12-15] MEDS: Calcium Gluconate 1gm/50mL 1 GM/50 ML BAG IVPB SCH ×2 (01:10→02:00)
[2019-12-15 02:53] LABS: Basophils # 0.1 K/mcL (0.0-0.2); Basophils % 0.4 %; Eosinophils # 0.2 K/mcL (0.0-0.6); Eosinophils % 1.4 %; Hematocrit 37.1 % (37.5-50.1); Hemoglobin 12.2 g/dL (12.9-16.9); Immature Granulocytes % 0.6 % (0-4); Lymphocytes # 2.3 K/mcL (0.6-4.6); Mean Corpuscular HGB Conc 32.9 g/dL (31.6-35.5); Mean Corpuscular Hemoglobin 29.2 pg (28.0-33.3); Mean Corpuscular Volume 88.8 fL (83.0-100.0); Mean Platelet Volume 11.1 fL (9.4-12.4); Monocytes # 0.7 K/mcL (0.0-1.3); Monocytes % 6.1 %; Neutrophils # 8.7 K/mcL (1.6-8.9); Platelet Count 151 K/mcL (140-400); Red Blood Count 4.18 M/mcL (4.19-5.50); Red Cell Distribution Width 13.2 % (11.5-14.5); Segmented Neutrophils % 72.5 %
[2019-12-15 03:04] LABS: INR 1.3; Prothrombin Time 14.9 Seconds (9.4-12.1)
[2019-12-15 03:12] LABS: BUN/Creatinine Ratio 15 (6-26); Blood Urea Nitrogen 13 mg/dL (8-23); Calcium 7.7 mg/dL (8.6-10.3); Carbon Dioxide 36 mEq/L (23-29); Chloride 88 mEq/L (98-107); Cholesterol 135 mg/dL (< 200); Glucose 87 mg/dL (70-105); HDL Cholesterol 34 mg/dL (40-59); LDL Cholesterol,Calculated 73 mg/dL (0-99); Magnesium 1.8 mg/dL (1.6-2.6); Osmolality,Calculated 277 (280-300); Sodium 134 mEq/L (136-145); Triglycerides 142 mg/dL (< 150); eGFR For African Americans > 60 (> 60); eGFR For Non-African Americans > 60 (> 60)
[2019-12-15] MEDS: Ipratropium/Albuterol Neb 3 ML IH SCH ×4 (03:44→22:23)
[2019-12-15] MEDS: *HR* Enoxaparin 30 MG/0.3 ML SYRINGE SQ SCH (05:15)
[2019-12-15] MEDS: *HR* HYDROcodone/Acet 10/325 mg TABLET PO PRN ×3 (05:15→18:52)
[2019-12-15] MEDS ORDERED: Acetaminophen 325 MG TABLET PO PRN (09:20)
[2019-12-15] MEDS: Potassium Chloride Elixir 20 MEQ/15 ML UDC PO SCH ×2 (09:35→09:46)
[2019-12-15] MEDS: Nicotine 14 MG PATCH.TD24 TD SCH (09:36)
[2019-12-15] MEDS ORDERED: Potassium Chloride Elixir 20 MEQ/15 ML UDC PO SCH (12:00)
[2019-12-15] MEDS ORDERED: 0.9 % Sodium Chloride 1,000 ML IVC SCH (12:15)
[2019-12-15] MEDS: Bevespi Aerosphere Inhaler IH SCH (12:36)
[2019-12-15] MEDS: Cholecalciferol (D-3) 1,000 UNIT (25MCG) TABLET PO SCH (12:39)
[2019-12-15] MEDS ORDERED: Temazepam 15 MG CAPSULE PO ONE (20:00)
[2019-12-15] MEDS ORDERED: traZODone 50 MG TABLET PO SCH (21:00)
[2019-12-15] MEDS: Magnesium Oxide 400 MG TABLET PO SCH (21:36)
[2019-12-15] MEDS: Pregabalin 50 MG CAPSULE PO SCH (21:36)
[2019-12-16] MEDS: Bevespi Aerosphere Inhaler IH SCH ×3 (03:44→23:08)
[2019-12-16] MEDS: Ipratropium/Albuterol Neb 3 ML IH SCH ×5 (04:27→23:57)
[2019-12-16] MEDS: *HR* HYDROcodone/Acet 10/325 mg TABLET PO PRN ×2 (05:36→15:07)
[2019-12-16] MEDS: *HR* Enoxaparin 30 MG/0.3 ML SYRINGE SQ SCH (05:36)
[2019-12-16 06:36] LABS: Sodium, Urine 18.4 mEq/L
[2019-12-16] MEDS: Magnesium Oxide 400 MG TABLET PO SCH ×4 (07:57→20:07)
[2019-12-16] MEDS: Nicotine 14 MG PATCH.TD24 TD SCH (07:57)
[2019-12-16] MEDS: Cholecalciferol (D-3) 1,000 UNIT (25MCG) TABLET PO SCH (07:57)
[2019-12-16] MEDS: Pregabalin 50 MG CAPSULE PO SCH ×2 (07:57→20:07)
[2019-12-16 08:26] LABS: Basophils # 0.1 K/mcL (0.0-0.2); Basophils % 0.6 %; Eosinophils # 0.1 K/mcL (0.0-0.6); Eosinophils % 1.5 %; Hematocrit 36.3 % (37.5-50.1); Hemoglobin 11.8 g/dL (12.9-16.9); Immature Granulocytes % 0.8 % (0-4); Lymphocytes # 1.8 K/mcL (0.6-4.6); Lymphocytes % 21.5 %; Mean Corpuscular HGB Conc 32.5 g/dL (31.6-35.5); Mean Corpuscular Hemoglobin 29.6 pg (28.0-33.3); Mean Platelet Volume 10.7 fL (9.4-12.4); Monocytes # 0.6 K/mcL (0.0-1.3); Monocytes % 7.2 %; Neutrophils # 5.8 K/mcL (1.6-8.9); Platelet Count 138 K/mcL (140-400); Red Blood Count 3.99 M/mcL (4.19-5.50); Red Cell Distribution Width 13.2 % (11.5-14.5); Segmented Neutrophils % 68.4 %; White Blood Count 8.5 K/mcL (4.3-11.1)
[2019-12-16 08:42] LABS: BUN/Creatinine Ratio 13 (6-26); Blood Urea Nitrogen 11 mg/dL (8-23); Calcium 8.1 mg/dL (8.6-10.3); Carbon Dioxide 36 mEq/L (23-29); Chloride 99 mEq/L (98-107); Glucose 161 mg/dL (70-105); Magnesium 1.5 mg/dL (1.6-2.6); Osmolality,Calculated 291 (280-300); Phosphorous 3.4 mg/dL (2.7-4.5); Sodium 139 mEq/L (136-145); eGFR For African Americans > 60 (> 60); eGFR For Non-African Americans > 60 (> 60)
[2019-12-16] MEDS ORDERED: *HR* Dextrose 50 % in Water (Syg) 50 ML SYRINGE IVP PRN (14:37)
[2019-12-16] MEDS ORDERED: D5% in Water 1,000 ML IVC PRN (14:37)
[2019-12-16] MEDS ORDERED: Dextrose Gel 15 GM/37.5 ML TUBE PO PRN ×2 (14:37)
[2019-12-16] MEDS: Insulin LISPRO 300 UNITS/3 ML VIAL SQ SCH (18:12)
[2019-12-16] MEDS: Furosemide 20 MG TABLET PO SCH (20:07)
[2019-12-16] MEDS ORDERED: Temazepam 15 MG CAPSULE PO ONE (21:22)
[2019-12-17] MEDS: Ipratropium/Albuterol Neb 3 ML IH SCH ×4 (03:54→15:29)
[2019-12-17 04:58] LABS: Basophils # 0.1 K/mcL (0.0-0.2); Basophils % 0.6 %; Eosinophils # 0.2 K/mcL (0.0-0.6); Eosinophils % 2.1 %; Hematocrit 34.7 % (37.5-50.1); Hemoglobin 11.1 g/dL (12.9-16.9); Immature Granulocytes % 0.6 % (0-4); Lymphocytes # 2.4 K/mcL (0.6-4.6); Lymphocytes % 21.7 %; Mean Corpuscular Hemoglobin 29.3 pg (28.0-33.3); Mean Corpuscular Volume 91.6 fL (83.0-100.0); Mean Platelet Volume 11.2 fL (9.4-12.4); Monocytes # 0.9 K/mcL (0.0-1.3); Neutrophils # 7.5 K/mcL (1.6-8.9); Platelet Count 139 K/mcL (140-400); Red Blood Count 3.79 M/mcL (4.19-5.50); Red Cell Distribution Width 13.1 % (11.5-14.5); White Blood Count 11.2 K/mcL (4.3-11.1)
[2019-12-17 05:15] LABS: BUN/Creatinine Ratio 15 (6-26); Blood Urea Nitrogen 11 mg/dL (8-23); Calcium 8.2 mg/dL (8.6-10.3); Carbon Dioxide 33 mEq/L (23-29); Chloride 99 mEq/L (98-107); Glucose 188 mg/dL (70-105); Magnesium 1.5 mg/dL (1.6-2.6); Osmolality,Calculated 290 (280-300); Phosphorous 2.5 mg/dL (2.7-4.5); Potassium 4.1 mEq/L (3.5-5.1); Sodium 138 mEq/L (136-145); eGFR For African Americans > 60 (> 60); eGFR For Non-African Americans > 60 (> 60)
[2019-12-17] MEDS ORDERED: *HR* Enoxaparin 40 MG/0.4 ML SYRINGE SQ SCH (07:00)
[2019-12-17] MEDS: Nicotine 14 MG PATCH.TD24 TD SCH (08:12)
[2019-12-17] MEDS: Insulin LISPRO 300 UNITS/3 ML VIAL SQ SCH ×2 (08:12→13:56)
[2019-12-17] MEDS: Pregabalin 50 MG CAPSULE PO SCH (08:13)
[2019-12-17] MEDS: Magnesium Oxide 400 MG TABLET PO SCH ×2 (08:13→13:55)
[2019-12-17] MEDS: Furosemide 20 MG TABLET PO SCH (08:13)
[2019-12-17] MEDS: Bevespi Aerosphere Inhaler IH SCH (08:14)
[2019-12-17] MEDS ORDERED: Magnesium Sulfate 4 GM in 0.9 % Sodium Chloride 100 ML IVPB ONE (08:49)
[2019-12-17] MEDS ORDERED: Cholecalciferol (D-3) 1,000 UNIT (25MCG) TABLET PO SCH (09:00)
[2019-12-17 10:34] VITALS: BP 101/68
== END 2019-12-17 15:46 | disposition home or self-care (01) ==
LOC: 3ANU
PROVIDERS: ADMIT Internal Medicine; ATTEND Internal Medicine

== ENCOUNTER 2020-08-13 18:30 | Observation (INO) ==
[2020-08-13 23:58] LABS: Adenovirus Not Detected (Not Detect); Bordetella Pertussis Not Detected (Not Detect); Chlamydophila pneumoniae Not Detected (Not Detect); Coronavirus 229E Not Detected (Not Detect); Coronavirus HKU1 Not Detected (Not Detect); Coronavirus NL63 Not Detected (Not Detect); Coronavirus OC43 Not Detected (Not Detect); Human Metapneumovirus Not Detected (Not Detect); Human Rhinovirus/Enterovirus Not Detected (Not Detect); Influenza A Subtype 2009 H1 Not Detected (Not Detect); Influenza B Not Detected (Not Detect); Mycoplasma pneumoniae Not Detected (Not Detect); Parainfluenza Virus 1 Not Detected (Not Detect); Parainfluenza Virus 2 Not Detected (Not Detect); Parainfluenza Virus 3 Not Detected (Not Detect); Parainfluenza Virus 4 Not Detected (Not Detect); Respiratory Syncytial Virus Not Detected (Not Detect); SARS-CoV-2 Not Detected (Not Detect)
[2020-08-14] MEDS ORDERED: Naloxone 0.4 MG/ML INJ IVP PRN (02:04)
[2020-08-14 02:34] LABS: Basophils % 0.6 %; Hematocrit 44.4 % (37.5-50.1); Hemoglobin 13.5 g/dL (12.9-16.9); Immature Granulocytes % 3.8 % (0-4); Lymphocytes # 0.8 K/mcL (0.6-4.6); Lymphocytes % 3.1 %; Mean Corpuscular HGB Conc 30.4 g/dL (31.6-35.5); Mean Corpuscular Hemoglobin 29.3 pg (28.0-33.3); Mean Corpuscular Volume 96.3 fL (83.0-100.0); Mean Platelet Volume 11.3 fL (9.4-12.4); Monocytes # 0.2 K/mcL (0.0-1.3); Monocytes % 0.7 %; Nucleated Red Blood Cells 0.1 /100 WBC (0); Platelet Count 164 K/mcL (140-400); Red Blood Count 4.61 M/mcL (4.19-5.50); Segmented Neutrophils % 91.8 %
[2020-08-14 02:36] LABS: Basophils # 0.2 K/mcL (0.0-0.2)
[2020-08-14] MEDS: Lactulose Oral Soln 20 GM/30 ML UDC PO SCH ×2 (02:43→19:58)
[2020-08-14 02:54] LABS: BUN/Creatinine Ratio 26 (6-26); Blood Urea Nitrogen 24 mg/dL (8-23); Carbon Dioxide 35 mEq/L (23-29); Chloride 91 mEq/L (98-107); Glucose 398 mg/dL (70-105); Osmolality,Calculated 297 (280-300); Potassium 4.2 mEq/L (3.5-5.1); Sodium 133 mEq/L (136-145); eGFR For African Americans > 60 (> 60); eGFR For Non-African Americans > 60 (> 60)
[2020-08-14 02:56] LABS: Troponin I 0.07 ng/mL (< 0.04)
[2020-08-14] MEDS ORDERED: D5% in Water 1,000 ML IVC PRN (02:58)
[2020-08-14] MEDS ORDERED: Dextrose Gel 15 GM/37.5 ML TUBE PO PRN ×2 (02:58)
[2020-08-14] MEDS ORDERED: *HR* Dextrose 50 % in Water (Vial) 50 ML VIAL IVP PRN (02:58)
[2020-08-14] MEDS: Ipratropium/Albuterol Neb 3 ML IH SCH ×6 (03:49→23:22)
[2020-08-14] MEDS ORDERED: Furosemide 20 MG/2 ML VIAL IVP SCH (04:19)
[2020-08-14] MEDS ORDERED: Nitroglycerin 0.4 MG TAB.SUBL SL PRN (04:22)
[2020-08-14] MEDS ORDERED: *HR* HYDROcodone/Acet 10/325 mg TABLET PO PRN (04:22)
[2020-08-14] MEDS ORDERED: MethylPREDNISolone 40 MG/ML VIAL IVP SCH (06:00)
[2020-08-14] MEDS: *HR* Heparin 5,000 UNIT/ML VIAL SQ SCH ×2 (06:19→17:17)
[2020-08-14] MEDS: Insulin LISPRO 300 UNITS/3 ML VIAL SQ SCH ×4 (06:36→20:00)
[2020-08-14] MEDS: Budesonide/Formoterol 160/4.5 1 PUFF INH IH SCH ×2 (07:36→19:54)
[2020-08-14] MEDS ORDERED: Piperacillin/Tazobactam 3.375 GM in 0.9 % Sodium Chloride Mini Bag 100 ML IVPB SCH (08:00)
[2020-08-14 08:09] LABS: ABG Base Excess 5 mEq/L (-2 to 3); ABG HCO3 32 mEq/L (21-27); ABG Oxygen Saturation 73 % (95-98); ABG PCO2 53 mmHg (35-45); ABG PH 7.38 pH Units (7.32-7.45); ABG PO2 40 mmHg (85-104); ABG TCO2 33 mEq/L (20-26)
[2020-08-14] MEDS: carvediloL 6.25 MG TABLET PO SCH (08:56)
[2020-08-14] MEDS: Vitamin E 200 UNIT (90MG) CAPSULE PO SCH ×2 (08:57→19:59)
[2020-08-14] MEDS: Aspirin Enteric Coated 81 MG Tablet PO SCH (08:58)
[2020-08-14] MEDS: Magnesium Oxide 400 MG TABLET PO SCH ×3 (08:58→19:59)
[2020-08-14] MEDS: Cholecalciferol (D-3) 1,000 UNIT (25MCG) TABLET PO SCH (08:58)
[2020-08-14] MEDS: gemfibroziL 600 MG TABLET PO SCH ×2 (08:58→19:59)
[2020-08-14] MEDS: acetaZOLAMIDE 250 MG TABLET PO SCH (08:58)
[2020-08-14] MEDS: *HR* HYDROcodone/Acet 10/325 mg TABLET PO SCH ×3 (08:58→19:59)
[2020-08-14] MEDS: Pregabalin 50 MG CAPSULE PO SCH ×2 (08:58→19:59)
[2020-08-14] MEDS: Azithromycin 500 MG in 0.9 % Sodium Chloride 250 ML IVPB SCH (08:59)
[2020-08-14] MEDS: Nicotine 14 MG PATCH.TD24 TD SCH (08:59)
[2020-08-14] MEDS ORDERED: Insulin DETEMIR 100 UNIT/ML X5UNITS SQ ONE (11:17)
[2020-08-14] MEDS ORDERED: Insulin Human Regular 10 UNIT in 0.9 % Sodium Chloride 10 ML IV ONE (11:26)
[2020-08-14] MEDS: MethylPREDNISolone 40 MG/ML VIAL IVP SCH (17:17)
[2020-08-14] MEDS: Cefepime HCl 2,000 MG in Water for inj. (sterile) 20 ML IVP SCH (19:58)
[2020-08-14] MEDS: Temazepam 15 MG CAPSULE PO PRN (19:59)
[2020-08-14] MEDS: Furosemide 40 MG/4 ML VIAL IVP SCH (20:00)
[2020-08-14] MEDS: Insulin DETEMIR 100 UNIT/ML X5UNITS SQ SCH (20:24)
[2020-08-14] MEDS ORDERED: Insulin DETEMIR 100 UNIT/ML X5UNITS SQ SCH (21:00)
[2020-08-15] MEDS: Cefepime HCl 2,000 MG in Water for inj. (sterile) 20 ML IVP SCH ×3 (02:37→22:08)
[2020-08-15] MEDS: *HR* HYDROcodone/Acet 10/325 mg TABLET PO SCH ×4 (02:38→22:08)
[2020-08-15] MEDS: Ipratropium/Albuterol Neb 3 ML IH SCH ×6 (04:04→23:46)
[2020-08-15] MEDS: *HR* Heparin 5,000 UNIT/ML VIAL SQ SCH ×2 (04:47→17:37)
[2020-08-15] MEDS: MethylPREDNISolone 40 MG/ML VIAL IVP SCH ×2 (05:32→17:37)
[2020-08-15] MEDS: Budesonide/Formoterol 160/4.5 1 PUFF INH IH SCH ×2 (07:34→20:42)
[2020-08-15] MEDS: Insulin LISPRO 300 UNITS/3 ML VIAL SQ SCH ×4 (07:57→22:09)
[2020-08-15] MEDS: acetaZOLAMIDE 250 MG TABLET PO SCH (07:58)
[2020-08-15] MEDS: Vitamin E 200 UNIT (90MG) CAPSULE PO SCH ×2 (07:58→22:08)
[2020-08-15] MEDS: carvediloL 6.25 MG TABLET PO SCH (07:58)
[2020-08-15] MEDS: Azithromycin 500 MG in 0.9 % Sodium Chloride 250 ML IVPB SCH (07:59)
[2020-08-15] MEDS: Aspirin Enteric Coated 81 MG Tablet PO SCH (07:59)
[2020-08-15] MEDS: Magnesium Oxide 400 MG TABLET PO SCH ×3 (07:59→22:08)
[2020-08-15] MEDS: Pregabalin 50 MG CAPSULE PO SCH ×2 (07:59→22:08)
[2020-08-15] MEDS: Cholecalciferol (D-3) 1,000 UNIT (25MCG) TABLET PO SCH (07:59)
[2020-08-15] MEDS: gemfibroziL 600 MG TABLET PO SCH ×2 (07:59→22:08)
[2020-08-15] MEDS: Nicotine 14 MG PATCH.TD24 TD SCH (07:59)
[2020-08-15] MEDS: Furosemide 40 MG/4 ML VIAL IVP SCH ×2 (08:00→22:08)
[2020-08-15 10:08] LABS: Monocytes % 1.5 %
[2020-08-15 10:10] LABS: Basophils % 0.2 %; Hematocrit 43.9 % (37.5-50.1); Hemoglobin 13.3 g/dL (12.9-16.9); Immature Granulocytes % 1.2 % (0-4); Lymphocytes # 0.8 K/mcL (0.6-4.6); Lymphocytes % 3.3 %; Mean Corpuscular HGB Conc 30.3 g/dL (31.6-35.5); Mean Corpuscular Hemoglobin 29.3 pg (28.0-33.3); Mean Corpuscular Volume 96.7 fL (83.0-100.0); Mean Platelet Volume 12.2 fL (9.4-12.4); Monocytes # 0.4 K/mcL (0.0-1.3); Platelet Count 158 K/mcL (140-400); Red Blood Count 4.54 M/mcL (4.19-5.50); Red Cell Distribution Width 13.1 % (11.5-14.5); Segmented Neutrophils % 93.8 %; White Blood Count 25.3 K/mcL (4.3-11.1)
[2020-08-15 10:26] LABS: BUN/Creatinine Ratio 35 (6-26); Blood Urea Nitrogen 40 mg/dL (8-23); Calcium 9.3 mg/dL (8.6-10.3); Carbon Dioxide 33 mEq/L (23-29); Chloride 96 mEq/L (98-107); Glucose 316 mg/dL (70-105); Magnesium 1.9 mg/dL (1.6-2.6); Osmolality,Calculated 302 (280-300); Phosphorous 3.1 mg/dL (2.7-4.5); Sodium 135 mEq/L (136-145); eGFR For African Americans > 60 (> 60); eGFR For Non-African Americans > 60 (> 60)
[2020-08-15 10:36] LABS: Basophils # 0.1 K/mcL (0.0-0.2); Neutrophils # 23.7 K/mcL (1.6-8.9)
[2020-08-15 10:40] LABS: Anisocytosis 1+ (Not Present); Platelet Estimate Normal (Normal)
[2020-08-15] MEDS: Lactulose Oral Soln 20 GM/30 ML UDC PO SCH (22:08)
[2020-08-15] MEDS: Temazepam 15 MG CAPSULE PO PRN (22:14)
[2020-08-15] MEDS: Insulin DETEMIR 100 UNIT/ML X5UNITS SQ SCH (22:26)
[2020-08-16 01:58] LABS: Basophils # 0.1 K/mcL (0.0-0.2); Basophils % 0.2 %; Hematocrit 43.9 % (37.5-50.1); Hemoglobin 13.4 g/dL (12.9-16.9); Immature Granulocytes % 1.4 % (0-4); Lymphocytes # 0.8 K/mcL (0.6-4.6); Lymphocytes % 3.2 %; Mean Corpuscular HGB Conc 30.5 g/dL (31.6-35.5); Mean Corpuscular Hemoglobin 29.6 pg (28.0-33.3); Mean Corpuscular Volume 96.9 fL (83.0-100.0); Mean Platelet Volume 12.1 fL (9.4-12.4); Monocytes # 0.7 K/mcL (0.0-1.3); Monocytes % 2.8 %; Neutrophils # 22.5 K/mcL (1.6-8.9); Nucleated Red Blood Cells 0.1 /100 WBC (0); Platelet Count 141 K/mcL (140-400); Red Blood Count 4.53 M/mcL (4.19-5.50); Red Cell Distribution Width 13.2 % (11.5-14.5); Segmented Neutrophils % 92.4 %; White Blood Count 24.3 K/mcL (4.3-11.1)
[2020-08-16 02:18] LABS: BUN/Creatinine Ratio 43 (6-26); Blood Urea Nitrogen 49 mg/dL (8-23); Carbon Dioxide 27 mEq/L (23-29); Chloride 98 mEq/L (98-107); Glucose 337 mg/dL (70-105); Magnesium 1.9 mg/dL (1.6-2.6); Osmolality,Calculated 310 (280-300); Phosphorous 3.3 mg/dL (2.7-4.5); Potassium 3.9 mEq/L (3.5-5.1); Sodium 137 mEq/L (136-145); eGFR For African Americans > 60 (> 60); eGFR For Non-African Americans > 60 (> 60)
[2020-08-16 02:44] LABS: Platelet Estimate Normal (Normal)
[2020-08-16] MEDS: *HR* HYDROcodone/Acet 10/325 mg TABLET PO SCH ×2 (04:02→11:23)
[2020-08-16] MEDS ORDERED: Insulin LISPRO 300 UNITS/3 ML VIAL SQ ONE (04:39)
[2020-08-16] MEDS: Ipratropium/Albuterol Neb 3 ML IH SCH ×3 (04:39→11:25)
[2020-08-16] MEDS: *HR* Heparin 5,000 UNIT/ML VIAL SQ SCH (04:42)
[2020-08-16] MEDS: MethylPREDNISolone 40 MG/ML VIAL IVP SCH (05:04)
[2020-08-16] MEDS ORDERED: Cefepime HCl 2,000 MG in Water for inj. (sterile) 20 ML IVP SCH (06:00)
[2020-08-16 07:10] VITALS: BP 125/79
[2020-08-16] MEDS: Budesonide/Formoterol 160/4.5 1 PUFF INH IH SCH (07:31)
[2020-08-16] MEDS: carvediloL 6.25 MG TABLET PO SCH (08:17)
[2020-08-16] MEDS: Aspirin Enteric Coated 81 MG Tablet PO SCH (08:17)
[2020-08-16] MEDS: Pregabalin 50 MG CAPSULE PO SCH (08:17)
[2020-08-16] MEDS: Magnesium Oxide 400 MG TABLET PO SCH (08:17)
[2020-08-16] MEDS: Vitamin E 200 UNIT (90MG) CAPSULE PO SCH (08:17)
[2020-08-16] MEDS: Cholecalciferol (D-3) 1,000 UNIT (25MCG) TABLET PO SCH (08:17)
[2020-08-16] MEDS: gemfibroziL 600 MG TABLET PO SCH (08:17)
[2020-08-16] MEDS: Furosemide 40 MG/4 ML VIAL IVP SCH (08:18)
[2020-08-16] MEDS: Nicotine 14 MG PATCH.TD24 TD SCH (08:18)
[2020-08-16] MEDS: Insulin LISPRO 300 UNITS/3 ML VIAL SQ SCH ×2 (08:19→12:01)
[2020-08-16] MEDS: Azithromycin 500 MG in 0.9 % Sodium Chloride 250 ML IVPB SCH (08:19)
[2020-08-16] MEDS: acetaZOLAMIDE 250 MG TABLET PO SCH (08:23)
== END 2020-08-16 13:38 | disposition home or self-care (01) ==
LOC: CDU → 2ANU 08-14 00:26
PROVIDERS: ADMIT Internal Medicine; ATTEND Internal Medicine

== ENCOUNTER 2021-08-11 16:19 | Inpatient (IN) ==
[2021-08-11] MEDS ORDERED: Ondansetron ODT 4 MG TAB.RAPDIS SL PRN (20:27)
[2021-08-11] MEDS ORDERED: Melatonin 3 MG TABLET PO PRN (20:27)
[2021-08-11] MEDS ORDERED: Naloxone 0.4 MG/ML INJ IVP PRN (20:27)
[2021-08-11] MEDS ORDERED: Albuterol 2.5 MG/3 ML NEBULIZER IH PRN (20:41)
[2021-08-11] MEDS ORDERED: *HR* Dextrose 50 % in Water (Syg) 50 ML SYRINGE IVP PRN (20:44)
[2021-08-11] MEDS ORDERED: D5% in Water 1,000 ML IVC PRN (20:44)
[2021-08-11] MEDS ORDERED: Dextrose Gel 15 GM/37.5 ML TUBE PO PRN ×2 (20:44)
[2021-08-11] MEDS ORDERED: Insulin LISPRO 300 UNITS/3 ML VIAL SUBQ SCH (21:00)
[2021-08-11] MEDS ORDERED: Azithromycin 500 MG in 0.9 % Sodium Chloride 250 ML IVPB SCH (21:00)
[2021-08-11 21:21] LABS: INR 2.3
[2021-08-11 21:31] LABS: Adenovirus Not Detected (Not Detect); Bordetella Pertussis Not Detected (Not Detect); Chlamydophila pneumoniae Not Detected (Not Detect); Coronavirus 229E Not Detected (Not Detect); Coronavirus HKU1 Not Detected (Not Detect); Coronavirus NL63 Not Detected (Not Detect); Coronavirus OC43 Not Detected (Not Detect); Human Metapneumovirus Not Detected (Not Detect); Human Rhinovirus/Enterovirus Not Detected (Not Detect); Influenza A Subtype 2009 H1 Not Detected (Not Detect); Influenza B Not Detected (Not Detect); Mycoplasma pneumoniae Not Detected (Not Detect); Parainfluenza Virus 1 Not Detected (Not Detect); Parainfluenza Virus 2 Not Detected (Not Detect); Parainfluenza Virus 3 Not Detected (Not Detect); Parainfluenza Virus 4 Not Detected (Not Detect); Respiratory Syncytial Virus Not Detected (Not Detect); SARS-CoV-2 Not Detected (Not Detect)
[2021-08-11 21:31] LABS: Magnesium 0.7 mg/dL (1.6-2.6); Phosphorous 8.2 mg/dL (2.7-4.5)
[2021-08-11 21:34] LABS: Calcium 6.4 mg/dL (8.6-10.3); Potassium 5.5 mEq/L (3.5-5.1)
[2021-08-11] MEDS: Nicotine 21 MG PATCH.TD24 TD SCH (21:37)
[2021-08-11 21:39] LABS: Troponin I 0.04 ng/mL (< 0.04)
[2021-08-11 21:57] LABS: Estimated Average Glucose 258 mg/dl; Hemoglobin A1C 10.6 %
[2021-08-11] MEDS ORDERED: Calcium Gluconate 1gm/50mL 1 GM/50 ML BAG IVPB ONE (22:27)
[2021-08-11] MEDS ORDERED: 0.9 % Sodium Chloride 1,000 ML IVC SCH (22:30)
[2021-08-11 22:59] LABS: VBG Ionized Calcium 0.73 mmol/L (1.15-1.35)
[2021-08-11] MEDS: MethylPREDNISolone 40 MG/ML VIAL IVP SCH (23:01)
[2021-08-11] MEDS: Ipratropium/Albuterol Neb 3 ML IH SCH (23:21)
[2021-08-11 23:54] LABS: Sodium, Urine 40.2 mEq/L
[2021-08-12] MEDS: calcitrioL 0.25 MCG CAPSULE PO SCH ×3 (00:29→22:20)
[2021-08-12 01:26] LABS: Hemoglobin 11.5 g/dL (12.9-16.9); Red Cell Distribution Width 12.8 % (11.5-14.5)
[2021-08-12 01:28] LABS: Hematocrit 36.8 % (37.5-50.1); Immature Platelets 18.9 % (1.1-6.1); Mean Corpuscular HGB Conc 31.3 g/dL (31.6-35.5); Mean Corpuscular Hemoglobin 30.1 pg (28.0-33.3); Mean Corpuscular Volume 96.3 fL (83.0-100.0); Mean Platelet Volume 12.4 fL (9.4-12.4); Red Blood Count 3.82 M/mcL (4.19-5.50); White Blood Count 15.8 K/mcL (4.3-11.1)
[2021-08-12 01:29] LABS: VBG HCO3 20 mEq/L (21-27); VBG PCO2 56 mmHg (41-51); VBG PH 7.17 pH Units (7.32-7.42); VBG PO2 59 mmHg (25-50)
[2021-08-12 02:25] LABS: INR 2.2; Prothrombin Time 23.9 Seconds (9.4-12.1)
[2021-08-12] MEDS: Ipratropium/Albuterol Neb 3 ML IH SCH ×4 (03:43→22:44)
[2021-08-12 03:56] LABS: Albumin 3.7 g/dL (3.5-5.7); Albumin/Globulin Ratio 1.2 (1.1-2.2); Bilirubin,Direct 0.1 mg/dL (0.0-0.2); Bilirubin,Indirect 0.4 mg/dL (0.0-1.0); Bilirubin,Total 0.5 mg/dL (0.3-1.0); Calcium 6.4 mg/dL (8.6-10.3); Globulin 3.1 g/dL (2.4-3.5); Magnesium 1.3 mg/dL (1.6-2.6); Phosphorous 7.6 mg/dL (2.7-4.5); Potassium 6.8 mEq/L (3.5-5.1); Total Protein 6.8 g/dL (6.4-8.9)
[2021-08-12 04:12] LABS: ABG Base Excess -8 mEq/L (-2 to 3); ABG HCO3 22 mEq/L (21-27); ABG Oxygen Saturation 91 % (95-98); ABG PCO2 67 mmHg (35-45); ABG PH 7.13 pH Units (7.32-7.45); ABG PO2 80 mmHg (85-104); ABG TCO2 24 mEq/L (20-26)
[2021-08-12] MEDS ORDERED: Insulin Human Regular 10 UNIT in 0.9 % Sodium Chloride 10 ML IV ONE ×2 (04:15→04:59)
[2021-08-12] MEDS ORDERED: *HR* Dextrose 50 % in Water (Syg) 50 ML SYRINGE IVP ONE (04:15)
[2021-08-12] MEDS: 0.9 % Sodium Chloride 1,000 ML IVC SCH ×3 (04:16→18:42)
[2021-08-12] MEDS: MethylPREDNISolone 40 MG/ML VIAL IVP SCH ×4 (04:58→23:57)
[2021-08-12 06:02] LABS: Calcium 6.3 mg/dL (8.6-10.3); Potassium 6.4 mEq/L (3.5-5.1)
[2021-08-12] MEDS: cefTRIAXone 2,000 MG in Water for inj. (sterile) 20 ML IVP SCH (06:06)
[2021-08-12] MEDS: Insulin LISPRO 300 UNITS/3 ML VIAL SUBQ SCH ×5 (06:10→22:21)
[2021-08-12 06:16] LABS: ABG Base Excess -9 mEq/L (-2 to 3); ABG HCO3 22 mEq/L (21-27); ABG Oxygen Saturation 86 % (95-98); ABG PCO2 74 mmHg (35-45); ABG PH 7.09 pH Units (7.32-7.45); ABG PO2 73 mmHg (85-104); ABG TCO2 24 mEq/L (20-26)
[2021-08-12] MEDS ORDERED: Albumin 25% 25gram/100mL 25 GM/100 ML IV.SOLN IVPB ONE (06:47)
[2021-08-12] MEDS ORDERED: Sodium Bicarbonate 50 MEQ/50 ML VIAL IVP ONE (06:53)
[2021-08-12] MEDS ORDERED: Sodium Bicarbonate 50 MEQ/50 ML VIAL ONE (06:54)
[2021-08-12] MEDS ORDERED: Insulin LISPRO 300 UNITS/3 ML VIAL SUBQ SCH (07:30)
[2021-08-12] MEDS: Azithromycin 250 MG TABLET PO SCH (07:37)
[2021-08-12] MEDS: SODIUM ZIRCONIUM CYCLOSILICATE 5 GM POWD.PACK PO SCH (07:37)
[2021-08-12] MEDS: MetroNIDAZOLE 500 MG/100 ML 500 MG/100 ML BAG IVPB SCH ×3 (07:51→23:57)
[2021-08-12] MEDS: Nicotine 21 MG PATCH.TD24 TD SCH (07:51)
[2021-08-12 08:01] LABS: Calcium 6.5 mg/dL (8.6-10.3); Phosphorous 6.3 mg/dL (2.7-4.5); Potassium 5.6 mEq/L (3.5-5.1)
[2021-08-12 08:17] LABS: ABG Base Excess -5 mEq/L (-2 to 3); ABG HCO3 25 mEq/L (21-27); ABG Oxygen Saturation 93 % (95-98); ABG PCO2 67 mmHg (35-45); ABG PH 7.17 pH Units (7.32-7.45); ABG PO2 85 mmHg (85-104); ABG TCO2 27 mEq/L (20-26)
[2021-08-12 08:41] LABS: Magnesium 1.3 mg/dL (1.6-2.6)
[2021-08-12 09:56] LABS: Magnesium 1.3 mg/dL (1.6-2.6)
[2021-08-12 14:26] LABS: Albumin 3.7 g/dL (3.5-5.7); Albumin/Globulin Ratio 1.3 (1.1-2.2); Bilirubin,Total 0.4 mg/dL (0.3-1.0); Calcium 6.9 mg/dL (8.6-10.3); Globulin 2.8 g/dL (2.4-3.5); Potassium 4.8 mEq/L (3.5-5.1); Total Protein 6.5 g/dL (6.4-8.9)
[2021-08-12 14:36] LABS: Amphetamine Screen,Urine Negative ng/mL (Cutoff=1000); Barbiturate Screen,Urine Negative ng/mL (Cutoff=200); Benzodiazepines Screen,Urine Negative ng/mL (Cutoff=200); Cannabinoid Screen,Urine Negative ng/mL (Cutoff = 50); Cocaine Screen,Urine Negative ng/mL (Cutoff= 300); Opiate Screen,Urine Positive ng/mL (Cutoff=300); Phencyclidine Screen,Urine Negative ng/mL (Cutoff=25)
[2021-08-12] MEDS ORDERED: Nitroglycerin 0.4 MG TAB.SUBL SL PRN (15:51)
[2021-08-12 16:23] LABS: ABG Base Excess -2 mEq/L (-2 to 3); ABG HCO3 27 mEq/L (21-27); ABG Oxygen Saturation 94 % (95-98); ABG PCO2 63 mmHg (35-45); ABG PH 7.24 pH Units (7.32-7.45); ABG PO2 83 mmHg (85-104); ABG TCO2 29 mEq/L (20-26); Blood Gas Modality ST; Blood Gas VT 18 cc
[2021-08-12] MEDS: Furosemide 40 MG TABLET PO SCH (16:32)
[2021-08-12] MEDS ORDERED: Budesonide/Formoterol 160/4.5 1 PUFF INH IH SCH (21:00)
[2021-08-12] MEDS: Insulin DETEMIR 100 UNIT/ML X5UNITS SUBQ SCH (22:19)
[2021-08-12] MEDS: Apixaban 5 MG TABLET PO SCH (22:20)
[2021-08-12] MEDS: Pregabalin 50 MG CAPSULE PO SCH (22:20)
[2021-08-13] MEDS: Insulin LISPRO 300 UNITS/3 ML VIAL SUBQ SCH ×5 (01:45→20:21)
[2021-08-13] MEDS: Ipratropium/Albuterol Neb 3 ML IH SCH ×4 (03:49→23:14)
[2021-08-13] MEDS: 0.9 % Sodium Chloride 1,000 ML IVC SCH ×3 (04:44→21:52)
[2021-08-13] MEDS: MethylPREDNISolone 40 MG/ML VIAL IVP SCH ×4 (05:41→22:34)
[2021-08-13] MEDS: cefTRIAXone 2,000 MG in Water for inj. (sterile) 20 ML IVP SCH (05:41)
[2021-08-13] MEDS ORDERED: Azithromycin 500 MG in 0.9 % Sodium Chloride 250 ML IVPB SCH (08:00)
[2021-08-13] MEDS: Pregabalin 50 MG CAPSULE PO SCH ×2 (08:13→20:20)
[2021-08-13] MEDS: SODIUM ZIRCONIUM CYCLOSILICATE 5 GM POWD.PACK PO SCH (08:13)
[2021-08-13] MEDS: Furosemide 40 MG TABLET PO SCH (08:13)
[2021-08-13] MEDS: Azithromycin 250 MG TABLET PO SCH (08:13)
[2021-08-13] MEDS: Metoprolol XL (24 HR) Succ 25 MG TAB.ER.24H PO SCH (08:13)
[2021-08-13] MEDS: Apixaban 5 MG TABLET PO SCH ×2 (08:13→20:20)
[2021-08-13] MEDS: calcitrioL 0.25 MCG CAPSULE PO SCH (08:14)
[2021-08-13] MEDS: Insulin DETEMIR 100 UNIT/ML X5UNITS SUBQ SCH ×2 (08:15→20:21)
[2021-08-13] MEDS: Nicotine 21 MG PATCH.TD24 TD SCH (08:16)
[2021-08-13] MEDS ORDERED: Spironolactone 25 MG TABLET PO SCH (09:00)
[2021-08-13] MEDS ORDERED: lisinopriL 5 MG TABLET PO SCH (09:00)
[2021-08-13 09:39] LABS: Basophils % 0.1 %; Hematocrit 31.8 % (37.5-50.1); Mean Platelet Volume 13.4 fL (9.4-12.4); Red Cell Distribution Width 12.9 % (11.5-14.5)
[2021-08-13 09:41] LABS: Hemoglobin 10.1 g/dL (12.9-16.9); Immature Granulocytes % 0.4 % (0-4); Immature Platelets 16.5 % (1.1-6.1); Lymphocytes # 0.4 K/mcL (0.6-4.6); Lymphocytes % 2.4 %; Mean Corpuscular HGB Conc 31.8 g/dL (31.6-35.5); Mean Corpuscular Hemoglobin 29.6 pg (28.0-33.3); Mean Corpuscular Volume 93.3 fL (83.0-100.0); Monocytes # 0.2 K/mcL (0.0-1.3); Monocytes % 1.3 %; Platelet Count 118 K/mcL (140-400); Red Blood Count 3.41 M/mcL (4.19-5.50); Segmented Neutrophils % 95.8 %; White Blood Count 17.4 K/mcL (4.3-11.1)
[2021-08-13 09:45] LABS: Neutrophils # 16.7 K/mcL (1.6-8.9)
[2021-08-13] MEDS ORDERED: Tiotropium 10 INH DOSE IH SCH (10:00)
[2021-08-13 10:06] LABS: Calcium 6.9 mg/dL (8.6-10.3); Potassium 4.4 mEq/L (3.5-5.1)
[2021-08-13] MEDS ORDERED: Calcium Gluconate 1gm/50mL 1 GM/50 ML BAG IVPB ONE (14:50)
[2021-08-13] MEDS: Temazepam 15 MG CAPSULE PO PRN (21:54)
[2021-08-14] MEDS: Ipratropium/Albuterol Neb 3 ML IH SCH ×4 (03:39→21:30)
[2021-08-14] MEDS: MethylPREDNISolone 40 MG/ML VIAL IVP SCH ×3 (04:46→19:42)
[2021-08-14] MEDS: cefTRIAXone 2,000 MG in Water for inj. (sterile) 20 ML IVP SCH (04:46)
[2021-08-14] MEDS: 0.9 % Sodium Chloride 1,000 ML IVC SCH (05:43)
[2021-08-14 05:50] LABS: Calcium 7.2 mg/dL (8.6-10.3); Potassium 3.8 mEq/L (3.5-5.1)
[2021-08-14] MEDS: Apixaban 5 MG TABLET PO SCH ×2 (08:24→19:41)
[2021-08-14] MEDS: Azithromycin 250 MG TABLET PO SCH (08:24)
[2021-08-14] MEDS: Pregabalin 50 MG CAPSULE PO SCH ×2 (08:24→19:42)
[2021-08-14] MEDS: Nicotine 21 MG PATCH.TD24 TD SCH (08:24)
[2021-08-14] MEDS: Metoprolol XL (24 HR) Succ 25 MG TAB.ER.24H PO SCH (08:24)
[2021-08-14] MEDS: Insulin LISPRO 300 UNITS/3 ML VIAL SUBQ SCH ×4 (08:24→19:54)
[2021-08-14] MEDS: Insulin DETEMIR 100 UNIT/ML X5UNITS SUBQ SCH ×2 (10:22→19:53)
[2021-08-14] MEDS: Furosemide 40 MG TABLET PO SCH ×2 (10:23→15:43)
[2021-08-14 10:35] LABS: Hematocrit 30.6 % (37.5-50.1); Hemoglobin 9.9 g/dL (12.9-16.9); Immature Granulocytes % 0.3 % (0-4); Lymphocytes # 0.5 K/mcL (0.6-4.6); Mean Corpuscular HGB Conc 32.4 g/dL (31.6-35.5); Mean Corpuscular Hemoglobin 29.9 pg (28.0-33.3); Mean Corpuscular Volume 92.4 fL (83.0-100.0); Mean Platelet Volume 13.2 fL (9.4-12.4); Monocytes # 0.3 K/mcL (0.0-1.3); Monocytes % 2.6 %; Neutrophils # 10.7 K/mcL (1.6-8.9); Platelet Count 110 K/mcL (140-400); Red Blood Count 3.31 M/mcL (4.19-5.50); Red Cell Distribution Width 13.2 % (11.5-14.5); Segmented Neutrophils % 93.1 %; White Blood Count 11.5 K/mcL (4.3-11.1)
[2021-08-14] MEDS: Temazepam 15 MG CAPSULE PO PRN (19:56)
[2021-08-15] MEDS: MethylPREDNISolone 40 MG/ML VIAL IVP SCH ×2 (04:09→12:58)
[2021-08-15] MEDS: cefTRIAXone 2,000 MG in Water for inj. (sterile) 20 ML IVP SCH (04:11)
[2021-08-15 04:13] LABS: Hematocrit 30.6 % (37.5-50.1); Hemoglobin 9.9 g/dL (12.9-16.9); Immature Granulocytes % 0.4 % (0-4); Lymphocytes # 0.5 K/mcL (0.6-4.6); Lymphocytes % 4.5 %; Mean Corpuscular HGB Conc 32.4 g/dL (31.6-35.5); Mean Corpuscular Hemoglobin 29.9 pg (28.0-33.3); Mean Corpuscular Volume 92.4 fL (83.0-100.0); Mean Platelet Volume 11.8 fL (9.4-12.4); Monocytes # 0.5 K/mcL (0.0-1.3); Monocytes % 4.1 %; Neutrophils # 10.1 K/mcL (1.6-8.9); Platelet Count 112 K/mcL (140-400); Red Blood Count 3.31 M/mcL (4.19-5.50); Red Cell Distribution Width 13.2 % (11.5-14.5); White Blood Count 11.1 K/mcL (4.3-11.1)
[2021-08-15 04:19] LABS: Calcium 7.4 mg/dL (8.6-10.3)
[2021-08-15] MEDS: Ipratropium/Albuterol Neb 3 ML IH SCH ×2 (04:19→10:31)
[2021-08-15] MEDS: Apixaban 5 MG TABLET PO SCH (10:31)
[2021-08-15] MEDS: Metoprolol XL (24 HR) Succ 25 MG TAB.ER.24H PO SCH (10:31)
[2021-08-15] MEDS: Pregabalin 50 MG CAPSULE PO SCH (10:31)
[2021-08-15] MEDS: Furosemide 40 MG TABLET PO SCH (10:32)
[2021-08-15] MEDS: Insulin LISPRO 300 UNITS/3 ML VIAL SUBQ SCH (10:32)
[2021-08-15] MEDS: Nicotine 21 MG PATCH.TD24 TD SCH (10:32)
[2021-08-15] MEDS: Insulin DETEMIR 100 UNIT/ML X5UNITS SUBQ SCH (10:35)
[2021-08-15] MEDS: Azithromycin 250 MG TABLET PO SCH (11:06)
[2021-08-15 11:21] VITALS: BP 153/79; PULSE 105; TEMP 97.9; O2SAT 94
[2021-08-15] MEDS ORDERED: FLU Vac QV 21-22 (6Month+)/PF 0.5 ML SYRINGE IM ONE (12:08)
== END 2021-08-15 13:29 | disposition home or self-care (01) | DRG 871 ==
LOC: 2ANU 18:57 → SUATTDRO 18:57 → 2NENU 08-12 09:50 → 4WAOSI 08-15 07:56
PROVIDERS: ADMIT Student in an Organized Health Care Education/Training Program; ATTEND Hospitalist